=== PATIENT | female | born 1975 | race Caucasian/White ===

== ENCOUNTER → 2016-12-14 | Outpatient (CLI) | payer MEDICARE, MEDICAID ==
[~2016-12-14] MED LIST: ACET-790 PO; CARI350T27 PO; GABA600T2 PO; LOPE2CAP PO; OXYB5TAB PO; POTA20TA15 PO; PRAZ2CAP2 PO; QUET200T2 PO; TOPI100T11 PO; TRAM50TA2 PO; VENL150C PO
--- OUTSIDE RECORDS SUMMARY | 2016-12-14 10:42 | XMS REPORT | Continuity of Care Document ---
Author Author [facility] Organization [facility] Address Unknown Phone Unavailable Care Team Providers Care Police Surgeon Name Role Phone PCP Unavailable Source Comments Some departments are not documenting in the electronic medical record. If you do not see the information that you expected, contact Release of Information in the Health Information Management department at [phone] for further assistance in locating additional records.[facility] Active Allergies and Adverse Reactions Allergen Noted Date Severity Reactions Comments Adhesive 11/06/2016 Medium RASH Paper tape Amoxicillin 11/06/2016 Low STOMACH UPSET Codeine 11/06/2016 Medium HIVES Morphine 11/06/2016 Medium HIVES Penicillins 11/06/2016 Low STOMACH UPSET [place] Dye 11/06/2016 Medium HIVES itching Purple Dye 11/06/2016 Medium HIVES itching Sulfa (Sulfonamide 11/06/2016 High ANAPHYLAXIS Antibiotics) Current Medications Prescription Sig. Disp. Refills Start End Date Status Date topiramate (TOPAMAX) 200 Take 200 mg by mouth Active mg tablet every 12 hours. QUEtiapine (SEROQUEL) 200 Take 200 mg by mouth Active mg tablet twice daily. venlafaxine XR (EFFEXOR Take 150 mg by mouth Active XR) 150 mg capsule daily. Take with food. oxybutynin XL (DITROPAN Take 5 mg by mouth daily. Active XL) 5 mg tablet potassium chloride SR Take 20 mEq by mouth Active (K-DUR) 20 mEq tablet twice daily. Take with a meal and a full glass of water. gabapentin (NEURONTIN) Take 600 mg by mouth Active 600 mg tablet three times daily. ferrous sulfate (FEOSOL, Take 325 mg by mouth Active FEROSUL) 325 mg (65 mg three times daily. Take iron) tablet on an empty stomach at least 1 hour before or 2 hours after food. HYDROcodone-ibuprofen Take 1 Tab by mouth every Active (VICOPROFEN) 7.5-200 mg 6 hours as needed for tablet Pain Active Problems Problem Noted Date Mixed stress and urge urinary incontinence 11/06/2016 Overview: 2008 - Interstim placement for urinary urgency/frequency, and MANPREET. Battery failed. 2011 - Interstim battery replacement. Lead malfunction 2012 - Complete Interstim replacement. Worked well until fell on ice 2014 - Complete Interstim replacement. Battery failed 11/2015 - Complete Interstim replacement (Dr. Rogers) 04/2016 - Revision of L Interstim pocket (2/2 pain) 10/24/16 - Persistent MANPREET, urgency, frequency on Oxybutynin 5mg BID. Refer to [facility] 11/06/16 - Continued MANPREET, urgency, frequency on Oxybutynin 5mg BID. PVR 165cc. Scheduled for UDS w/ Interstim off L ast Assessment & Plan: 41yF with recurrent MANPREET, urgency, frequency on Oxybutynin 5mg BID s/p multiple Interstim placements/replacements with recent sharp back pain, worsening MANPREET, urgency, frequency. PVR 165cc. Symptoms likely related to malfunctioning Interstim device, however will get baseline UDS prior to explantation. 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 CARDROOM WORKER Temperature - - Respiratory Rate - - Height 1.626 m (5' 4") 11/06/2016 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 CARDROOM WORKER Weight 118.389 kg (261 lb) 11/06/2016 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
--- NOTE | 2016-12-14 11:56 | Diagnostic Imaging Report ---
PROCEDURE: US Abdomen, limited. TECHNIQUE: Multiple realtime grayscale images were obtained over the abdomen in various projections. INDICATION: Lump under the left upper quadrant rib cage area. Unremarkable soft tissue appearance is seen with no focal mass or fluid collection identified. IMPRESSION: No definite abnormality. If symptoms persist or there is convincing lesion clinically, then evaluation with MRI or CT scan would be helpful. Dictated by: Dictated on workstation # [id number]
== END ==
LOC: RAD 10:39
PROVIDERS: ATTEND Nurse Practitioner Adult Health
DX: R10.12 Left upper quadrant pain (principal)
CPT/HCPCS: 76705

== ENCOUNTER → 2016-12-21 | Outpatient (CLI) | payer MEDICARE, MEDICAID ==
[~2016-12-21] MED LIST changes: +CATHETER FLUSH 10 ML SYR IV PRN; +IOHEXOL 350 MG/ML 100 ML (OMNIPAQUE 350) VIAL IV ONE; +NS 100 ML (IVPB) BAG IV ONE
--- OUTSIDE RECORDS SUMMARY | 2016-12-21 09:02 | XMS REPORT | Continuity of Care Document ---
Author Author [facility] Organization [facility] Address Unknown Phone Unavailable Care Team Providers Care Account Manager Education Name Role Phone PCP Unavailable Source Comments Some departments are not documenting in the electronic medical record. If you do not see the information that you expected, contact Release of Information in the Health Information Management department at [phone] for further assistance in locating additional records.[facility] Active Allergies and Adverse Reactions Allergen Noted Date Severity Reactions Comments Adhesive 11/06/2016 Medium RASH Paper tape Amoxicillin 11/06/2016 Low STOMACH UPSET Codeine 11/06/2016 Medium HIVES Morphine 11/06/2016 Medium HIVES Penicillins 11/06/2016 Low STOMACH UPSET [place] Dye 11/06/2016 Medium HIVES itching Purple Dye [...] frequency on Oxybutynin 5mg BID. 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
--- NOTE | 2016-12-21 10:05 | Diagnostic Imaging Report ---
PROCEDURE: CT abdomen with contrast only. TECHNIQUE: Multiple contiguous axial images were obtained through the abdomen after the administration of intravenous contrast. INDICATION: Abdominal mass. COMPARISON: There are no previous CT examinations available for comparison. FINDINGS: By history, the patient has a palpable mass in the left upper quadrant. The previous ultrasound exam of 12/14/2016 failed to show any discrete solid or cystic mass in this area. On this study, a marker was placed over the area of concern but the marker is barely visible. There is still no sign of a mass or cyst in the subcutaneous fat of the left upper quadrant. If there is indeed a clinical palpable mass present and further evaluation is desired, then biopsy should be considered. There is a small fat-containing retro umbilical hernia. There is no incarceration or obstruction of the bowel by the hernia. The liver does not appear to be enlarged. The liver is of lower density than usually seen and this appearance does suggest fatty metamorphosis. The gallbladder is surgically absent. The spleen, pancreas, adrenals, kidneys, aorta and inferior vena cava show no sign of an acute abnormality. The stomach is partially filled with particulate matter and consequently difficult to assess. The lung bases are clear. The bone window show no evidence for a fracture or for destructive lesion. IMPRESSION: 1. There is no discrete solid or cystic mass in the area of the patient's palpable abnormality in the upper-outer quadrant of the left abdomen. Recommendations as above. 2. There is no acute abnormality of the abdomen or pelvis identified. 3. The appearance of the liver does suggest fatty metamorphosis. 4. The gallbladder is surgically absent. Dictated by: Dictated on workstation # [id number]
== END ==
LOC: RAD 08:59
PROVIDERS: ATTEND Nurse Practitioner Adult Health
DX: R10.12 Left upper quadrant pain (principal)
CPT/HCPCS: 74160

== ENCOUNTER 2017-02-09 09:33 | Outpatient (CLI) | payer MEDICARE, MEDICAID ==
[~2017-02-09] VITALS: Ht 162.6 cm; Wt 115.2 kg
[~2017-02-09 09:33] MED LIST changes: -CATHETER FLUSH 10 ML SYR IV PRN; -IOHEXOL 350 MG/ML 100 ML (OMNIPAQUE 350) VIAL IV ONE; -NS 100 ML (IVPB) BAG IV ONE
--- OUTSIDE RECORDS SUMMARY | 2017-02-09 09:38 | XMS REPORT | Continuity of Care Document ---
Author Author [facility] Organization [facility] Address Unknown Phone Unavailable Care Team Providers Care Biological Technician Name Role Phone Lindsey Carrington PCP [phone] Source Comments Some departments are not documenting in the electronic medical record. If you do not see the information that you expected, contact Release of Information in the Health Information Management department at [phone] for further assistance in locating additional records.[facility] Active Allergies and Adverse Reactions Allergen Noted Date Severity Reactions Comments Adhesive 11/06/2016 Medium RASH Paper tape Amoxicillin 11/06/2016 Low STOMACH UPSET Codeine 11/06/2016 Medium HIVES Morphine 11/06/2016 Medium HIVES Penicillins 11/06/2016 Low STOMACH UPSET [place] Dye 11/06/2016 Medium HIVES itching Purple Dye [...] XL (DITROPAN Take 5 mg by mouth twice Active XL) 5 mg tablet daily. potassium chloride SR Take 20 mEq by [...] 6 hours as needed for tablet Pain oxyCODONE (ROXICODONE, Take 1 Tab by mouth every 15 Tab 0 02/03/20 Active OXY-IR) 5 mg tablet 4 hours as needed for 17 Pain Earliest Fill Date: 02/02/17 Active Problems Problem Noted Date Mixed stress [...] frequency on Oxybutynin 5mg BID. Refer to [facility] 11/06/16 - Continued MANPREET, urgency, frequency on Oxybutynin 5mg BID. PVR 165cc. Scheduled for UDS w/ Interstim off UDS which revealed a small capacity, emptying, no stress leak, and DO with large leak up to 40cm H20. 02/02/17 - Interstim device removal. 100u botox L ast Assessment & Plan: - OR 02/02/17 for interstim removal and botox 100u. - PT/PTT Most Recent Encounters Date Type Specialty Providers Description 02/02/2017 [facility] Sandra Marlow MD OAB (overactive bladder) Encounter 02/02/2017 Surgery Sandra Marlow MD CYSTOSCOPY, BOTOX INJECTION (100 UNITS) 02/01/2017 Anesthesia Rosie Little MD Event 01/22/2017 Office Visit Urology Sandra Marlow MD Mixed stress and urge urinary incontinence (Primary Dx) 01/22/2017 Clinical Urology Mixed incontinence urge Support and stress (male)(female) (Primary Dx); Urinary frequency; Urge incontinence; Mixed stress and urge urinary incontinence 01/22/2017 Prep for Case Urology Sandra Marlow MD Bleeding tendency (HCC) (Primary Dx) Social History Tobacco Use Types Packs/Day Years Used Date Former Smoker Quit: 04/06/1998 Alcohol Use Drinks/Week oz/Week Comments No Last Filed Vital Signs Vital Sign Reading Time Taken Blood Pressure 139/82 02/02/2017 2:05 PM [employer] Pulse 80 02/02/2017 2:05 PM [employer] Temperature 36.6 C (97.9 F) 02/02/2017 2:05 PM [employer] Respiratory Rate - - Height 1.638 m (5' 4.5") 02/02/2017 10:31 AM [employer] Weight 121.3 kg (267 lb 6.7 oz) 02/02/2017 10:31 AM [employer] Body Mass Index 45.21 02/02/2017 10:31 AM [employer] Oxygen Saturation 99% 02/02/2017 2:05 PM [employer] Plan of Care Date Type Specialty Providers Description 02/19/2017 Appointment Urology Sandra Marlow MD [address] [facility] [address] [place] [address] [phone] (Fax) Health Maintenance Due Date Last Done Comments Physical (Comprehensive) 1981 Exam Pertussis Vaccine 1985 Tetanus Vaccine 1991 Cervical Cancer Screening 1995 Breast Cancer Screening 2014 Influenza Vaccine 07/27/2017 Procedures from Last 3 Months Procedure Name Priority Date/Time Associated Diagnosis Comments TELEMETRY STRIPS-SCAN 02/06/2017 Results for this 1:12 PM CDT procedure are in the results section. REMOVAL NEUROSTIMULATOR 02/02/2017 OAB (overactive bladder) ELECTRODE PERIPHERAL 11:35 AM [employer] CYSTOSCOPY, BOTOX 02/02/2017 OAB (overactive bladder) INJECTION (100 UNITS) 11:35 AM [employer] URODYNAMIC STUDIES Routine 01/22/2017 Mixed incontinence urge Results for this 12:00 AM [employer] and stress (male)(female) procedure are in the Urinary frequency results section. Urge incontinence Results from Last 3 Months TELEMETRY STRIPS-SCAN (02/06/2017 1:12 PM) Narrative Ordered by an unspecified provider. SURGICAL PATHOLOGY (02/02/2017 12:11 PM) Component Value Range PATHOLOGY REPORT [facility] [email or web address] Iza Gibson MD, PhD, Director of Anatomic Pathology Department of Pathology and Laboratory Medicine [address] [facility] [place] [address] Surgical Pathology Office: [phone] SURGICAL PATHOLOGY REPORT NAME: TISH BARBOZA SURG PATH #: [id number] MR #: [id number] SPECIMEN CLASS: SR BILLING #: [id number] ALT ID #: LOCATION: [facility] DATE OF PROCEDURE: 02/02/2017 AGE: 41 SEX: F DATE RECEIVED: 02/02/2017 : 1975 TIME RECEIVED: 12:11 PHYSICIAN: Sandra Marlow DATE OF REPORT: 02/05/2017 COPY TO: DATE OF PRINTIN02/05/2017 ################################################## ###################### Final Diagnosis: A. InterStim components gross only, removal: Gross diagnosis only; see gross description. Attestation: By this signature, I attest that I have personally formulated the final interpretation expressed in this report and that the above diagnosis is based upon my examination of the slides and/or other material indicated in this report. +++Electronically Signed Out By+++ bret/02/02/2017 Interpreted by: Kaylynn Naik M.D. 02/05/2017 ################################################## ###################### Material Received: A: interstem components gross only History: 41-year-old female with a clinical history of overactive bladder. Gross Description: A. Received fresh labeled with the patient's name "InterStim components gross only" is a 5.0 x 4.5 x 0.7 cm silver, metallic surgical device with attached clear, plastic tubing measuring 21.0 cm in length by 0.1 cm in diameter. No distinct abnormalities are observed. The specimen is submitted for gross diagnosis only. (jkh) jteresa/02/02/2017 POC URINE DIPSTICK MANUAL READ (01/22/2017) Component Value Range Urine Glucose POC neg Urine Bilirubin POC neg Urine Ketone POC neg Urine Specific [place] 1.030 POC Urine Blood POC neg Urine PH POC 6.0 Urine Protein POC neg Urine Urobilinogen POC 0.2 Urine Nitrite POC nge Urine Leukocytes POC neg Color,UA yellow Turbidity,UA clear Specimen Urine URODYNAMIC STUDIES (01/22/2017)
[2017-02-09] MEDS ORDERED: TRIAMCINOLONE ACET (KENALOG-40) 40 MG/ML 1 ML VIAL ONE (09:51)
[2017-02-09] MEDS ORDERED: BUPIVACAINE 0.5% 30 ML (SENSORCAINE) VIAL ONE (09:51)
[2017-02-09] MEDS ORDERED: LIDOCAINE 1% INJ 20 ML (XYLOCAINE) VIAL ONE (09:51)
[2017-02-09 09:56] VITALS: BP 141/76
[2017-02-09 10:50] VITALS: BP 127/78
--- NOTE | 2017-02-09 11:52 | Pain Medicine-Procedure ---
Procedure Pre-Op/Post-Op Diagnosis Diagnosis: spondylosis without myelopathy, lumbar Indications for Operation Low back pain Attending Surgeon Viet Procedure Date of Service: Feb 09, 2017 PROCEDURE: Bilateral lumbar medial branch block at L3,L4, L5 and sacral ala under fluoroscopic guidance. PROCEDURE DETAILS: After obtaining an informed consent from the patient, the patient's chart was reviewed. The patient was brought to the procedure room and placed in a prone position. The back was prepped with antiseptic solution, and under fluoroscopic guidance the sacral ala was identified bilaterally. 0.5 cc of 1% Lidocaine to anesthetize the skin. Two 22 gauge 3.5 inch spinal needles were inserted under fluoroscopic guidance until it got in touch with the bone at the sacral ala bilaterally. Then under right oblique fluoroscopy, the junction of the superior articular process and transverse process on the right at L3, L4, and L5 was identified. 0.5 cc of 1% Lidocaine was used to anesthetize the skin. A 22 gauge 3.5 inch spinal needle was inserted through the skin under fluoroscopic guidance until it came in touch with the bone at the junction between the superior articular process and transverse process at each level. The exact steps were repeated for the left side. After needle aspiration,80 mg of kenalog total was injected in equal alliquots followed by 0.5 cc of 0.5% bupivacaine at each. The patient tolerated the procedure well. The needles were flushed and removed, and a Band-Aide was applied. Complications None ZEKE KEVIN MD Feb 09, 2017 11:52 am
== END 2017-02-09 10:52 | disposition home or self-care (01) ==
LOC: CARD 09:33
PROVIDERS: ATTEND Pain Medicine Pain Medicine
DX: M47.816 Spondylosis without myelopathy or radiculopathy, lumbar region (principal); Z79.899 Other long term (current) drug therapy
CPT/HCPCS: 64493; 64494; 64495

== ENCOUNTER 2017-03-02 08:16 | Outpatient (CLI) | payer MEDICARE, MEDICAID ==
[~2017-03-02] VITALS: Ht 162.6 cm; Wt 115.2 kg
[2017-03-02] MEDS ORDERED: LIDOCAINE 1% INJ 20 ML (XYLOCAINE) VIAL ONE (08:44)
[2017-03-02] MEDS ORDERED: TRIAMCINOLONE ACET (KENALOG-40) 40 MG/ML 1 ML VIAL ONE (08:44)
[2017-03-02] MEDS ORDERED: BUPIVACAINE 0.25% 30 ML (SENSORCAINE) VIAL ONE (08:44)
[2017-03-02 08:49] VITALS: BP 132/95
[2017-03-02 09:24] VITALS: BP 138/98
--- NOTE | 2017-03-02 12:29 | Pain Medicine-Procedure ---
Procedure Pre-Op/Post-Op Diagnosis Diagnosis: sacrococcygeal disorder Indications for Operation Hip pain Attending Surgeon Viet Procedure Date of Service: Mar 02, 2017 Procedure: Flouroscopic guided bilateral sacroiliac joint injection PROCEDURE IN DETAIL: After obtaining informed consent from the patient, the patient's chart was reviewed. The patient was then brought to the procedure room and placed in the prone position. A time out was performed. The back was prepped with antiseptic solution and under fluoroscopic guidance the patient's sacroiliac joint on both sides was identified. Attention was first turned to the right sacroiliac joint injection where 2 mL's of 1% lidocaine was used to anesthetize the skin and then two 22-gauge 3.5 inch spinal needles were inserted and advanced under flouroscopic guidance until they were in the lower 1 /3 of the right sacroiliac joint. Next, attention was then turned to the left sacroiliac joint injection where 2 mL's of 1% lidocaine was used to anesthetize the skin and then two 22-gauge 3.5 inch spinal needles were inserted and advance under flouroscopic guidance until they were in the lower 1/3 of the sacroiliac joint on the left side. After negative aspiration, each needle was injected with 40 mg of Kenalog along with 2 mL's of 0.25% marcaine. All needles were then flushed with 1% lidocaine and then removed. Band-Aids were applied to all the sites and the patient tolerated the procedure well and was taken to the recovery area in stable condition. Complications None ZEKE KEVIN MD Mar 02, 2017 12:29 pm
== END 2017-03-02 09:26 | disposition home or self-care (01) ==
LOC: CARD 08:16
PROVIDERS: ATTEND Pain Medicine Pain Medicine
DX: M53.3 Sacrococcygeal disorders, not elsewhere classified (principal); M47.816 Spondylosis without myelopathy or radiculopathy, lumbar region; Z79.899 Other long term (current) drug therapy
CPT/HCPCS: 27096

== ENCOUNTER 2017-06-30 23:39 | Emergency (ER) | payer MEDICARE, MEDICAID ==
[~2017-06-30] VITALS: Ht 162.6 cm; Wt 129.7 kg
[2017-06-30] MEDS ORDERED: HYDR-87 (23:52)
[2017-06-30] MEDS ORDERED: ALBU18HF2 (23:52)
[2017-06-30] MEDS ORDERED: FERR-74 (23:52)
--- NOTE | 2017-07-01 01:18 | ED Lower Extremity ---
General Chief Complaint: Lower Extremity Stated Complaint: L FOOT SWOLLEN Nursing Triage Note: left foot/ankle pain/swelling x2 weeks after fall. denies loc/other injuries Nursing Sepsis Screen: No Definite Risk Source: patient Exam Limitations: no limitations History of Present Illness Time seen by provider: 23:50 Initial Comments This 42-year-old woman presents to the emergency room with complaints of left foot pain and swelling. She fell about 2 weeks ago injuring this foot. She has been ambulating on it until tonight. She reinjured it night aggravating the old injury. She felt a popping and grinding sound tonight when she injured it. Pain is isolated to the foot and does not involve the ankle. She denies any other injury. Allergies and Home Medications Allergies Coded Allergies: Penicillins (Unverified Allergy, Unknown, 02/04/16) Sulfa (Sulfonamide Antibiotics) (Unverified Allergy, Unknown, 02/04/16) codeine (Unverified Allergy, Unknown, 02/04/16) meloxicam (Unverified Allergy, Unknown, 02/04/16) morphine (Unverified Allergy, Unknown, 02/04/16) Uncoded Allergies: PAPER TAPE (Allergy, Unknown, 02/04/16) PINK DYE (Allergy, Unknown, 02/04/16) PURPLE DYE (Allergy, Unknown, 02/04/16) Home Medications Albuterol Sulfate 18 Gm Hfa.aer.ad, #18 (Reported) Ferrous Sulfate 325 Mg Tablet, #90 (Reported) Gabapentin 600 Mg Tablet, 600 MG PO TID, (Reported) Hydrocodone/Ibuprofen 1 Each Tablet, #112 (Reported) Oxybutynin Chloride 5 Mg Tab.er.24, 5 MG PO BID, #60 (Reported) Potassium Chloride 20 Meq Tab.er.prt, 40 MEQ PO DAILY, #60 (Reported) Quetiapine Fumarate 200 Mg Tab.er.24h, 200 MG PO HS, #30 (Reported) Topiramate 100 Mg Tablet, 100 MG PO BID, #60 (Reported) Venlafaxine HCl 150 Mg Cap.er.24h, 150 MG PO DAILY, (Reported) Constitutional: no symptoms reported EENTM: no symptoms reported Respiratory: no symptoms reported Cardiovascular: no symptoms reported Gastrointestinal: no symptoms reported Musculoskeletal: see HPI Skin: no symptoms reported Psychiatric/Neurological: No Symptoms Reported Past Tqiysie-Sqzyry-Quvibe Hx Patient Social History Alcohol Use: Denies Use Recreational Drug Use: No Smoking Status: Never a Smoker 2nd Hand Smoke Exposure: No Recent Foreign Travel: No Contact w/Someone Who Travel: No Recent Infectious Disease Expo: No Recent Hopitalizations: No Immunizations Up To Date Tetanus Booster (TDap): Unknown Seasonal Allergies Seasonal Allergies: No Surgeries HX Surgeries: Yes Surgeries: Abdominal, Ear Surgery, Gallbladder, Hysterectomy Respiratory Hx Respiratory Disorders: Yes Respiratory Disorders: Asthma Cardiovascular Hx Cardiac Disorders: No Neurological Hx Neurological Disorders: Yes Neurological Disorders: Headaches /Migraines Reproductive System : No Hx Reproductive Disorders: No 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 Genitourinary Hx Genitourinary Disorders: Yes Genitourinary Disorders: UTI-Chronic Gastrointestinal Hx Gastrointestinal Disorders: No Musculoskeletal Hx Musculoskeletal Disorders: Yes Musculoskeletal Disorders: Degenerate Disk Disease, Chronic Back Pain Endocrine Hx Endocrine Disorders: No HEENT HX ENT Disorders: No Cancer Hx Cancer: No Psychosocial Hx Psychiatric Problems: Yes Behavioral Health Disorders: Bipolar Integumentary HX Skin/Integumentary Disorder: No Blood Transfusions Hx Blood Disorders: No Physical Exam Vital Signs Vital Sign - Last 12Hours 06/30/17 23:52 Temp 97.6 Pulse 102 Resp 16 B/P (MAP) 125/75 Pulse Ox 94 O2 Delivery Room Air Capillary Refill : Less Than 3 Seconds General Appearance: WD/WN, no apparent distress HEENT: PERRL/EOMI, normal ENT inspection Cardiovascular: regular rate, rhythm, no edema, no murmur Respiratory: lungs clear, normal breath sounds, no respiratory distress Legs: bilateral leg non-tender, bilateral leg normal inspection, bilateral leg normal range of motion, bilateral leg no evidence of injury, bilateral leg other (no calf TTP, negative Evangelista) Knees: bilateral knee non-tender, bilateral knee normal inspection, bilateral knee normal range of motion, bilateral knee no evidence of injury Ankles: right ankle non-tender, right ankle normal inspection, right ankle normal range of motion, right ankle no evidence of injury, left ankle bone tenderness, left ankle limited range of motion, left ankle pain, bilateral ankle swelling Feet: right foot non-tender, right foot normal inspection, right foot normal range of motion, right foot no evidence of injury, left foot bone tenderness, left foot limited range of motion, left foot pain, left foot soft tissue tenderness, bilateral foot swelling 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, no motor/sensory deficits, alert, normal mood/affect, oriented x 3 Skin: normal color, warm/dry Progress/Results/Core Measures Results/Orders My Orders Orders - CHRISTOFER STROUD MD Foot, Left, 3 Views (07/01/17 00:04) Ankle, Left, 3 Views (07/01/17 00:04) Crutches (07/01/17 01:28) Vital Signs/I&O Vital Sign - Last 12Hours 06/30/17 07/01/17 23:52 01:33 Temp 97.6 97.6 Pulse 102 102 Resp 16 16 B/P (MAP) 125/75 Pulse Ox 94 94 O2 Delivery Room Air Blood Pressure Mean: 92 Progress Note : Progress Note Patient did not complain of any pain in the ankles but on exam she was found to be tender over the left ankle. Both feet are edematous. The left foot may be slightly more edematous than the right. Both feet are mildly erythematous. X- rays demonstrated no acute fracture. Crutches were dispensed as patient is having difficulty with weightbearing. Adiel wrap was applied. Departure Impression Impression: Primary Impression: Sprain and strain of foot Additional Impression: Left ankle sprain Qualified Codes: S93.402A - Sprain of unspecified ligament of left ankle, initial encounter Disposition: HOME, SELF-CARE Condition: Improved Departure-Patient Inst. Decision time for Depature: 01:00 Referrals: RAYNA FLORENTINO DO (PCP) Primary Care Physician JIM BOWMAN (Family) Primary Care Physician Patient Instructions: Ankle Sprain (DC) Add. Discharge Instructions: Contact the ER after 10 o'clock tomorrow morning to review results of your x- ray. You may use Adiel bandages for support and to reduce swelling. Use crutches as necessary and gradually advance your walking as tolerated. Elevation and icing in 20 minute intervals should help with pain and swelling. You may use your Vicoprofen as previously prescribed. All discharge instructions reviewed with patient and/or family. Voiced understanding. CHRISTOFER STROUD MD Jul 01, 2017 01:18
[2017-07-01 01:33] VITALS: BP 125/75
--- NOTE | 2017-07-01 06:47 | Diagnostic Imaging Report ---
INDICATION: Foot pain after fall. COMPARISON: Left ankle radiographs performed concurrently. FINDINGS: There is no acute or healing fracture. Normal variant os navicularis (os tibialis externum) at the base of the navicular bone. There is also an os peroneum adjacent to the cuboid. These are normal accessory ossicles, not avulsion fractures. Midfoot and forefoot are normal in alignment on nonweightbearing imaging. If there is concern for Lisfranc injury, weightbearing imaging is advised. Minimal degenerative joint space narrowing of the great toe MTP joint. Soft tissue swelling of the forefoot is present. IMPRESSION: 1. No acute or healing fracture. 2. Multiple normal variant ossicles around the midfoot. No avulsion fractures. Dictated by: Dictated on workstation # [id number]
--- NOTE | 2017-07-01 07:38 | Diagnostic Imaging Report ---
INDICATION: Left ankle pain after injury. COMPARISON: Left foot radiographs performed concurrently. TECHNIQUE: 3 views of the left ankle. FINDINGS: No acute or healing fracture. No osteochondral lesion of the talar dome. Mild degenerative changes of the tibiotalar joint anteriorly. There are also mild degenerative changes at the talonavicular joint. Small dorsal and plantar calcaneal spurs. No radiopaque foreign body. IMPRESSION: No acute or healing fracture about the ankle. Dictated by: Dictated on workstation # [id number]
== END 2017-07-01 01:33 | disposition home or self-care (01) ==
LOC: EDUNIT# 23:39 → ER 23:43
DX: S93.602A Unspecified sprain of left foot, initial encounter (principal); S93.402A Sprain of unspecified ligament of left ankle, initial encounter; G43.909 Migraine, unspecified, not intractable, without status migrainosus; M47.9 Spondylosis, unspecified; F31.9 Bipolar disorder, unspecified; J45.909 Unspecified asthma, uncomplicated; Z98.890 Other specified postprocedural states; Z90.710 Acquired absence of both cervix and uterus; X58.XXXA Exposure to other specified factors, initial encounter
CPT/HCPCS: 73610; 73630; 99282

== ENCOUNTER 2017-12-18 19:29 | Emergency (ER) | payer MEDICARE, MEDICAID ==
[~2017-12-18] VITALS: Ht 162.6 cm; Wt 127.5 kg
[~2017-12-18 19:29] MED LIST changes: +ALBU18HF2; +FERR325T18; +HYDR-87
--- NOTE | 2017-12-18 19:42 | ED Headache ---
General Chief Complaint: Head/Cervical Problems Stated Complaint: HEADACHE Source: patient Exam Limitations: no limitations History of Present Illness Date Seen by Provider: Dec 18, 2017 Time Seen by Provider: 19:39 Initial Comments To ER with severe headache global in nature present for one week. She was seen by [facility] yesterday and given a shot of Toradol without improvement symptoms. No nausea. No vomiting. This is similar to all of her previous headaches, she simply cannot get it to go away. She takes Topamax for her frequent headaches. Timing/Duration: 1 week Severity/Quality: moderate Location: global Prior Headaches/Recent Trauma: frequent headaches Associated Symptoms: No confusion, No fatigue, No facial pain, No fever/chills , No flushing, No nausea/vomiting, No nasal congestion Allergies and Home Medications Allergies Coded Allergies: Penicillins (Unverified Allergy, Unknown, 02/04/16) Sulfa (Sulfonamide Antibiotics) (Unverified Allergy, Unknown, 02/04/16) codeine (Unverified Allergy, Unknown, 02/04/16) meloxicam (Unverified Allergy, Unknown, 02/04/16) morphine (Unverified Allergy, Unknown, 02/04/16) Uncoded Allergies: PAPER TAPE (Allergy, Unknown, 02/04/16) PINK DYE (Allergy, Unknown, 02/04/16) PURPLE DYE (Allergy, Unknown, 02/04/16) Home Medications Albuterol Sulfate 18 Gm Hfa.aer.ad, #18 (Reported) Ferrous Sulfate 325 Mg Tablet, #90 (Reported) Gabapentin 600 Mg Tablet, 600 MG PO TID, (Reported) Hydrocodone/Ibuprofen 1 Each Tablet, #112 (Reported) Oxybutynin Chloride 5 Mg Tab.er.24, 5 MG PO BID, #60 (Reported) Potassium Chloride 20 Meq Tab.er.prt, 40 MEQ PO DAILY, #60 (Reported) Quetiapine Fumarate 200 Mg Tab.er.24h, 200 MG PO HS, #30 (Reported) Topiramate 100 Mg Tablet, 100 MG PO BID, #60 (Reported) Venlafaxine HCl 150 Mg Cap.er.24h, 150 MG PO DAILY, (Reported) Constitutional: see HPI Eyes: No Symptoms Reported Ears, Nose, Mouth, Throat: no symptoms reported Respiratory: no symptoms reported Cardiovascular: no symptoms reported Genitourinary: no symptoms reported Musculoskeletal: no symptoms reported Skin: no symptoms reported Psychiatric/Neurological: No Symptoms Reported Past Pbwusyp-Ccxakv-Gfjprs Hx Patient Social History 2nd Hand Smoke Exposure: No Recent Foreign Travel: No Contact w/Someone Who Travel: No Recent Hopitalizations: No Immunizations Up To Date Tetanus Booster (TDap): Unknown Seasonal Allergies Seasonal Allergies: No Surgeries History of Surgeries: Yes (hernia) Surgeries: Abdominal, Ear Surgery, Gallbladder, Hysterectomy Respiratory History of Respiratory Disorde: Yes Respiratory Disorders: Asthma Cardiovascular History of Cardiac Disorders: No Neurological History of Neurological Disord: Yes Neurological Disorders: Headaches /Migraines Reproductive System Hx Reproductive Disorders: No 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 Genitourinary History of Genitourinary Disor: Yes (incontinence) Genitourinary Disorders: UTI-Chronic Gastrointestinal History of Gastrointestinal Di: No Musculoskeletal History of Musculoskeletal Dis: Yes Musculoskeletal Disorders: Degenerate Disk Disease, Chronic Back Pain Endocrine History of Endocrine Disorders: No HEENT History of HEENT Disorders: No Cancer History of Cancer: No Psychosocial History of Psychiatric Problem: Yes Behavioral Health Disorders: Bipolar Integumentary History of Skin or Integumenta: No Blood Transfusions History of Blood Disorders: No Physical Exam Vital Signs Capillary Refill : General Appearance: WD/WN, no apparent distress, other (despite a reported allergy to pink d no ye and purple dye her hair is both pink and purple) HEENT: PERRL/EOMI, normal ENT inspection Neck: non-tender, full range of motion, normal inspection Cardiovascular: regular rate, rhythm, no murmur ( for Galo overnight) Respiratory: no respiratory distress, no accessory muscle use Gastrointestinal: non tender, soft Extremities: normal range of motion, non-tender Psychiatric: alert, oriented x 3 Skin: normal color, warm/dry (100) Progress/Results/Core Measures Results/Orders My Orders Orders - CHEYENNE PATTERSON APRN Saline Lock/Iv-Start (12/18/17 19:38) Normal Saline Bolus 1,000ml (12/18/17 19:45) Prochlorperazine Injection (Compazine In (12/18/17 19:45) Diphenhydramine Injection (Benadryl Inje (12/18/17 19:45) Ketorolac Injection (Toradol Injection) (12/18/17 19:45) Departure Impression Impression: Primary Impression: Headache Disposition: 01 HOME, SELF-CARE Condition: Stable Departure-Patient Inst. Decision time for Depature: 19:41 Referrals: RAYNA FLORENTINO DO (PCP) Primary Care Physician CHARIS MALCOLM (Family) Primary Care Physician Patient Instructions: Headache, Adult (DC) Add. Discharge Instructions: 1. Return to ER for any vomiting worsening headache or other concerns. Follow- up with your doctor as scheduled. All discharge instructions reviewed with patient and/or family. Voiced understanding. CHEYENNE PATTERSON SUPERVISOR PARTICLEBOARD Dec 18, 2017 19:42
[2017-12-18] MEDS ORDERED: NS IV 1000 ML 1,000 ML IV SCH (19:45)
[2017-12-18] MEDS ORDERED: KETOROLAC 30 MG/ML VIAL IVP ONE (19:45)
[2017-12-18] MEDS ORDERED: PROCHLORPERAZINE 10 MG/2ML INJ (COMPAZINE) IV ONE (19:45)
[2017-12-18] MEDS ORDERED: diphenhydrAMINE 50 MG/ML INJ (BENADRYL) IVP ONE (19:45)
[2017-12-18] MEDS ORDERED: fentaNYL INJECTION 100 MCG/2 ML AMP IVP ONE (21:00)
[2017-12-18 21:26] VITALS: BP 103/47
== END 2017-12-18 21:23 | disposition home or self-care (01) ==
LOC: EDUNIT# 19:29 → ER 19:31
DX: R51 Headache (principal); J45.909 Unspecified asthma, uncomplicated; F31.9 Bipolar disorder, unspecified; M47.9 Spondylosis, unspecified; Z90.710 Acquired absence of both cervix and uterus
CPT/HCPCS: 96361; 96374; 96375

== ENCOUNTER → 2019-10-01 | Outpatient (CLI) | payer MEDICARE, MEDICAID ==
[~2019-10-01] MED LIST changes: -GABA600T2 PO; +GBPN600T PO; -QUET200T2 PO; +QUET200T4 PO
--- NOTE | 2019-10-02 17:47 | Diagnostic Imaging Report ---
EXAMINATION: Digital mammogram bilateral screening. The current study was also evaluated with a Computer Aided Detection (CAD) system. 3-D tomosynthesis was also performed and reviewed. INDICATION: Screening. There are no prior studies available for comparison. At this time, the patient has no current complaints aside from pain in each breast. FINDINGS: The breasts are predominantly fatty. There is no primary or secondary sign of malignancy noted. There is no abnormality to account for the patient's breast pain either. IMPRESSION: 1. There is no evidence for malignancy. There is no abnormality to account for the patient's breast pain either. 2. If clinical concern regarding an underlying abnormality as a cause of the patient's breast pain persists, then ultrasound will be recommended. 3. The patient should have her annual screening mammogram on schedule in September of 2020. ACR BI-RADS Category 1: Negative. Result letter will be mailed to the patient. Note: At least 10% of breast cancer is not imaged by mammography. Dictated by: Dictated on workstation # [id number]
== END ==
LOC: RAD 12:59
PROVIDERS: ATTEND Nurse Practitioner Family
DX: Z12.31 Encounter for screening mammogram for malignant neoplasm of breast (principal)
CPT/HCPCS: 77067

== ENCOUNTER 2019-10-31 21:12 | Emergency (ER) | payer MEDICARE, MEDICAID ==
[~2019-10-31] VITALS: Ht 162.5 cm; Wt 131.8 kg
[~2019-10-31 21:12] MED LIST changes: -OXYB5TAB PO; +OXYB5TAB3 PO; -TRAM50TA2 PO; +TRM50T PO
--- NOTE | 2019-10-31 22:13 | ED Fall/Injury ---
General Chief Complaint: General Problems/Pain Stated Complaint: FALL-PAIN IN LEFT HIP,SHOULDER AND LEG Source: patient Exam Limitations: no limitations History of Present Illness Date Seen by Provider: Oct 31, 2019 Time Seen by Provider: 21:54 Initial Comments Patient presents to ER by private conveyance with a complaint of fall just prior to arrival walking to the backyard and a hole was approximately 8 inches deep by foot half wide in her [facility] backyard. She rolled into it onto her left side and is having some pain in her left hip and left lower back which is an aggravation of her chronic back pain with history of slipped discs. She has some pain in her left knee and pain in her left shoulder that she landed upon. No history of injury to the knee or shoulder before. She did have a fall about a month ago with similar episode but did not have it checked out at that time on September 25, 2019. She does not have any blood thinners did strike her head nor lose consciousness. She does take hydrocodone for her back but has not taken any since her fall. Allergies and Home Medications Allergies Coded Allergies: Penicillins (Unverified Allergy, Unknown, 02/04/16) Sulfa (Sulfonamide Antibiotics) (Unverified Allergy, Unknown, 02/04/16) codeine (Unverified Allergy, Unknown, 02/04/16) meloxicam (Unverified Allergy, Unknown, 02/04/16) morphine (Unverified Allergy, Unknown, 02/04/16) Uncoded Allergies: PAPER TAPE (Allergy, Unknown, 02/04/16) PINK DYE (Allergy, Unknown, 02/04/16) PURPLE DYE (Allergy, Unknown, 02/04/16) Home Medications Gabapentin 600 Mg Tablet, 600 MG PO TID, (Reported) Oxybutynin Chloride 5 Mg Tab.er.24, 5 MG PO BID, (Reported) Potassium Chloride 20 Meq Tab.er.prt, 40 MEQ PO DAILY, (Reported) Quetiapine Fumarate 200 Mg Tab.er.24h, 200 MG PO HS, (Reported) Topiramate 100 Mg Tablet, 100 MG PO BID, (Reported) Venlafaxine HCl 150 Mg Cap.er.24h, 150 MG PO DAILY, (Reported) Patient Home Medication List Home Medication List Reviewed: Yes Review of Systems Review of Systems Constitutional: No chills, No diaphoresis Eyes: Denies Blindness, Denies Blurred Vision Ears, Nose, Mouth, Throat: denies ear pain, denies ear discharge Respiratory: No cough, No short of breath Cardiovascular: No edema, No Hx of Intervention Gastrointestinal: No abdominal pain, No constipation, No diarrhea, No nausea Genitourinary: No discharge, No dysuria Musculoskeletal: see HPI, back pain, joint pain Past Twbzuxh-Nafvvz-Apecpu Hx Patient Social History Alcohol Use: Denies Use Recreational Drug Use: No Smoking Status: Former Smoker Type Used: Cigarettes Former Smoker, Quit: March 26, 2005 2nd Hand Smoke Exposure: No Recent Foreign Travel: No Contact w/Someone Who Travel: No Recent Hopitalizations: No Immunizations Up To Date Tetanus Booster (TDap): Unknown Date of Pneumonia Vaccine: Aug 26, 2017 Date of Influenza Vaccine: Aug 26, 2017 Seasonal Allergies Seasonal Allergies: No Past Medical History Surgeries: Yes (hernia) Abdominal, Ear Surgery, Gallbladder, Hysterectomy Respiratory: Yes Asthma Cardiac: No Neurological: Yes Headaches /Migraines 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 0.0oz. [id number]; 43.6 BMI Method:Stated General Appearance: mild distress, obese HEENT: PERRL/EOMI, pharynx normal Neck: full range of motion, normal inspection Cardiovascular: normal peripheral pulses, regular rate, rhythm Respiratory: lungs clear, normal breath sounds, no respiratory distress, no accessory muscle use Peripheral Pulses: 2+ Radial Pulses (R), 2+ Radial Pulses (L) Gastrointestinal: non tender, soft Back: normal inspection, vertebral tenderness (midline lumbar spine) Extremities: normal range of motion, normal inspection, no pedal edema, normal capillary refill, other (tenderness to palpation over anterior tibial plateau left knee, left hip and lumbar spine and anterior left glenohumeral joint. No dislocation or limit to range of motion.) Neurologic/Psychiatric: no motor/sensory deficits, alert, normal mood/affect, oriented x 3, other (antalgic gait) Skin: normal color, warm/dry [place] Coma Score Best Eye Response: (4) Open Spontaneously Best Verbal Response: (5) Oriented Best Motor Response: (6) Obeys Commands Elizabeth Total: 15 Progress/Results/Core Measures Results/Orders My Orders Orders - RILEY RAMIREZ Orphenadrine Injection (Norflex Injectio (10/31/19 22:15) Ketorolac Injection (Toradol Injection) (10/31/19 22:15) Shoulder, Left, 3 Views (10/31/19 22:06) Knee, Left, 3 Views (10/31/19 22:06) Hip, Left, 2 Views (10/31/19 22:06) Lumbar Spine - 2-3 Views (10/31/19 22:06) Medications Given in ED Current Medications Medications Dose Ordered Sig/Laura Route Start Time Stop Time Status Last Admin Dose Admin Ketorolac Tromethamine 60 mg ONCE ONCE IM 10/31/19 22:15 10/31/19 22:16 DC 10/31/19 22:16 60 MG Orphenadrine Citrate 60 mg ONCE ONCE IM 10/31/19 22:15 10/31/19 22:16 DC 10/31/19 22:16 60 MG Vital Signs/I&O 10/31/19 21:35 Temp 36.1 Pulse 96 Resp 18 B/P (MAP) 136/81 (99) O2 Delivery Room Air Progress Progress Note : Time: 22:12 Progress Note Patient says her back is in spasm and she will not bill perform x-ray. We'll give her a shot of Toradol and Norflex. If necessary we could also give hydrocodone Diagnostic Imaging Diagonstic Imaging: Xray Plain Films/CT/US/NM/MRI: other (left shoulder) Comments No acute osseous fracture or dislocation. Reviewed: Reviewed by Me Diagonstic Imaging: Xray Plain Films/CT/US/NM/MRI: other (lumbar spine) Comments No acute osseous dislocation, malalignment or fracture Reviewed: Reviewed by Me Diagonstic Imaging: Xray Plain Films/CT/US/NM/MRI: hip (left) Comments No acute osseous fracture or dislocation. Reviewed: Reviewed by Me Diagonstic Imaging: Xray Plain Films/CT/US/NM/MRI: knee (left) Comments No acute osseous fracture or dislocation. Reviewed: Reviewed by Me Departure Impression Primary Impression: Fall Qualified Codes: W19.XXXA - Unspecified fall, initial encounter Additional Impressions: Lumbago Qualified Codes: M54.42 - Lumbago with sciatica, left side Left anterior knee pain Left hip pain Left anterior shoulder pain Disposition: HOME, SELF-CARE Condition: Stable Departure-Patient Inst. Decision time for Depature: 00:37 Referrals: NO,LOCAL PHYSICIAN (PCP) Primary Care Physician CHARIS MALCOLM (Family) Primary Care Physician Patient Instructions: Preventing Falls, Knee Pain, Shoulder Pain (DC), Low Back Pain (DC) Add. Discharge Instructions: Ice applied your back, shoulder, hip and knee for 20 minutes every 4 hours for the next 2-3 days. Heating pads, topical creams such as Biofreeze, icy hot, Aspercreme helpful. Tylenol 1000 mg every 8 hours as needed for pain. Ibuprofen 800 mg every 8 hours as needed for pain. Cyclobenzaprine 1 tablet every 8 hours as needed for muscle spasms of your back. Will cause drowsiness. If not seeing improvement in the next 2 weeks then you need to follow-up with your primary care doctor for reevaluation and consider things like chiropractor, physical therapy, etc. All discharge instructions reviewed with patient and/or family. Voiced understanding. Scripts Cyclobenzaprine HCl (Cyclobenzaprine HCl) 10 Mg Tablet 10 MG PO Q8H PRN for SPASMS, #15 TAB 0 Refills Prov: RILEY RAMIREZ 11/01/19 RILEY RAMIREZ Oct 31, 2019 22:13 POS
[2019-10-31] MEDS ORDERED: KETOROLAC 60 MG/2 ML VIAL IM ONE (22:15)
[2019-10-31] MEDS ORDERED: ORPHENADRINE 60 MG/2 ML (NORFLEX) AMP IM ONE (22:15)
[2019-11-01] MEDS ORDERED: CYCL10TA9 PO (00:43)
[2019-11-01 00:50] VITALS: BP 130/80
--- NOTE | 2019-11-01 06:43 | Diagnostic Imaging Report ---
INDICATION: Fall, pain. COMPARISON: None available. TECHNIQUE: 3 radiographs of left knee dated 10/31/2019. FINDINGS: No acute fracture or dislocation. No destructive osseous process. Mild medial joint space narrowing. No significant osteophytosis. No joint effusion. No suspicious radiopaque foreign body. IMPRESSION: No acute osseous abnormality with minimal degenerative changes. Dictated by: Dictated on workstation # [id number]
--- NOTE | 2019-11-01 06:44 | Diagnostic Imaging Report ---
INDICATION: Fall, pain COMPARISON: None available TECHNIQUE: Two radiographs of the left hip dated 10/31/2019 FINDINGS: No acute fracture or dislocation. No destructive osseous process. Left hip joint is well maintained. No suspicious radiopaque foreign body. IMPRESSION: No acute osseous abnormality. Dictated by: Dictated on workstation # [id number]
--- NOTE | 2019-11-01 06:45 | Diagnostic Imaging Report ---
INDICATION: Fall, pain. COMPARISON: CT dated 08/31/2016. TECHNIQUE: 3 radiographs of lumbar spine dated 10/31/2019. FINDINGS: Partial lumbarization of the S1 vertebral body. Alignment of the lumbar spine is well maintained. Vertebral body heights are well-maintained. Mild disc space height loss at L5/S1. No severe disc space height loss. Multilevel small anterior osteophytes. No acute fracture or dislocation. No destructive osseous process. No suspicious radiopaque foreign body. The sacroiliac joints are intact. IMPRESSION: No acute osseous abnormality. Dictated by: Dictated on workstation # [id number]
--- NOTE | 2019-11-01 06:47 | Diagnostic Imaging Report ---
INDICATION: Fall, pain COMPARISON: None available TECHNIQUE: 3 radiographs of the left shoulder dated 11/01/2019. FINDINGS: The acromioclavicular joint is unremarkable. No acute fractures or dislocation. No destructive osseous process. Subacromial space is well-maintained. The visualized left lung is clear. IMPRESSION: No acute osseous abnormality. Dictated by: Dictated on workstation # [id number]
--- OUTSIDE RECORDS SUMMARY | 2019-11-27 06:40 | XMS REPORT ---
Author Author Tish MALCOLM Organization [facility] Address [address] [place] [address] Care Team Providers Care Drafting Technician Name Role Phone CHARIS MALCOLM Unavailable PROBLEMS Type Condition ICD9-CM Code CKG45-NA Code Onset Dates Condition S tatus SNOMED Code Problem Degenerative disc disease at L5-S1 level M51.36 Active 83033677 Problem Hypopotassemia E87.6 Active 07649 004 Problem Anxiety F41.9 Active 13463415 Problem Uncomplicated asthma, unspecified asthma severity J45.909 Active 943534904 Problem Hypoxemia R09.02 Active 456348499 Problem Acquired equinus deformity of left foot M21.6X2 Active 18707549 Problem Other chronic pain G89.29 Active 8 3046989 Problem Pure hyperglyceridemia E78.1 Active 502348015 Problem Morbid obesity due to excess calories E66.01 Active 662545195 Problem Chronic fatigue R53.82 Active 8422 9001 Problem Unsteady gait R26.81 Active 386140 08 Problem Chronic post-traumatic stress disorder (PTSD) F43. 12 Active 697239937 Problem Controlled type 2 diabetes m ellitus without complication, without long- term current use of insulin E11.9 Active 486109135 Problem Moderate persistent asthma with exacerbation J45.4 1 Active 217946521 Problem Chronic headaches R51 Active 43 2792697 Problem Mild intermittent asthma with acute exacerbation J 45.21 Active 164977205 Problem Obesity, morbid E66.01 Active 2381 21802 Problem Overactive bladder N32.81 Active 2 84064239 Problem Anemia D64.9 Active 528364944 Problem Bipolar I disorder with depression F31.9 Active 23594869 Problem Type 2 diabetes mellitus wit h hyperglycemia, without long-term current use of insulin E11.65 Active 91381006 Problem Migraine without aura and without status migrain osus, not intractable G43.009 Active 319257352 Problem Body mass index (BMI) of 45.0-49.9 in adult Z68.42 Active 618120846 ALLERGIES No Information ENCOUNTERS Encounter Location Date Diagnosis [place] [id number] [facility] [id number] [address] [place] [id number] Jul, Controlled type 2 diabetes josh ferrara without complication, without long-term current use of insulin E11.9 [place] [address] [facility] [id number] [address] [place] [phone] Jun, [place] [address] [place] [id number] [address] [place] [phone] Jun, [place] [address] [place] [id number] [address] [place] [address] May, Encounter for Medicare [facility] wellness exam Z00.00 ; Chronic post- traumatic stress disorder (PTSD) F43.12 ; Moderate persistent asthma with exacerbation J45.41 ; Unsteady gait R26.81 ; Chronic fatigue R53.82 ; Hypoxemia R09.02 ; Acquired equinus deformity of left foot M21.6X2 ; Pure hyperglyceridemia E78.1 ; Anxiety F41.9 ; Degenerative disc disease at L5-S1 level M51.36 ; Uncomplicated asthma, unspecified asthma severity J45.909 and Overactive bladder N32.81 [place] [address] [place] [id number] [address] [place] [address] May, [place] [address] [place] [id number] [address] [place] [address] May, Controlled type 2 diabetes josh ferrara without complication, without long-term current use of insulin E11.9 [place] [address] [facility] [id number] [address] [place] [address] Apr, [place] [address] [facility] [id number] [address] [place] [address] March, Bipolar I disorder with depr ession F31.9 ; Morbid obesity E66.01 ; Type 2 diabetes mellitus with hyperglycemia, without long-term current use of insulin E11.65 ; Pain in left shoulder M25.512 and Other chronic pain G89.29 [place] [address] [address] March, Controlled type 2 diabetes m ellitus without complication, without long-term current use of insulin E11.9 [facility] [address] [address] Jan, Mild intermittent asthma wit h acute exacerbation J45.21 [place] [address] [address] Jan, Controlled type 2 diabetes m ellitus without complication, without long-term current use of insulin E11.9 [facility] [address] [address] Jan, Mild intermittent asthma wit h acute exacerbation J45.21 ; Bronchitis J40 ; Chest congestion R09.89 and Morbid obesity E66.01 [place] [address] [address] Jan, Controlled type 2 diabetes m ellitus without complication, without long-term current use of insulin E11.9 [place] [address] [address] Dec, Viral upper respiratory infe ction J06.9 ; Cough R05 and BMI 45.0- 49.9, adult Z68.42 [place] [address] [address] Dec, [place] [address] [address] 04 Dec, 2018 Type 2 diabetes mellitus wit h hyperglycemia, without long-term current use of insulin E11.65 ; Migraine without aura and without status migrainosus, not intractable G43.009 and BMI 45.0-49.9, adult Z68.42 [place] [address] [address] Nov, Degenerative disc disease at L5-S1 level M51.36 [place] [address] [address] Nov, [facility] [address] [id number] [address] [place] [address] Nov, Degenerative disc disease at L5-S1 level M51.36 [facility] [address] [id number] [address] [place] [address] Oct, [facility] [address] [id number] [address] [place] [phone] Oct, Controlled type 2 diabetes josh ferrara without complication, without long-term current use of insulin E11.9 [facility] [address] [id number] [address] [place] [address] Oct, Degenerative disc disease at L5-S1 level M51.36 [facility] [address] [id number] [address] [place] [address] Sep, Degenerative disc disease at L5-S1 level M51.36 [facility] [address] [id number] [address] [place] [address] Sep, Degenerative disc disease at L5-S1 level M51.36 [facility] [address] [id number] [address] [place] [address] Sep, Controlled type 2 diabetes josh ferrara without complication, without long-term current use of insulin E11.9 [facility] [address] [id number] [address] [place] [address] Sep, [facility] [address] [id number] [address] [place] [address] Sep, [facility] [address] [id number] [address] [place] [phone] Aug, Bipolar I disorder with depr ession F31.9 and Chronic post-traumatic stress disorder (PTSD) F43.12 [facility] [address] [id number] [address] [place] [address] Aug, [facility] [address] [id number] [address] [place] [address] Aug, [facility] [address] [id number] [address] [place] [address] Aug, Acute pain of left wrist M25 .532 and Type 2 diabetes mellitus with hyperglycemia, without long-term current use of insulin E11.65 [facility] [address] [id number] [address] [place] [phone] Aug, [facility] [address] [id number] [address] [place] [id number] Aug, [place] [address] [id number] [address] [place] [phone] Aug, Bipolar I disorder with depr ession F31.9 and Chronic post-traumatic stress disorder (PTSD) F43.12 [place] [address] [id number] [address] [place] [address] Aug, Degenerative disc disease at L5-S1 level M51.36 [place] [address] [id number] [address] [place] [address] Jul, Controlled type 2 diabetes m ellitus without complication, without long-term current use of insulin E11.9 [place] [address] [id number] [address] [place] [address] Jul, Frequent headaches R51 [place] [address] [id number] [address] [place] [address] Jul, [place] [address] [id number] [address] [place] [address] Jul, Bipolar I disorder with depr ession F31.9 and Chronic post-traumatic stress disorder (PTSD) F43.12 [place] [address] [id number] [address] [place] [address] Jul, Degenerative disc disease at L5-S1 level M51.36 [place] [address] [id number] [address] [place] [address] 07 Jul, 2018 Other chronic pain G89.29 ; Dysuria R30.0 ; Degenerative disc disease at L5-S1 level M51.36 ; Uncomplicated asthma, unspecified asthma severity J45.909 ; Vagina, candidiasis B37.3 ; Glucose found in urine on examination R81 ; Family history of diabetes mellitus Z83.3 and Controlled type 2 diabetes mellitus without complication, without long-term current use of insulin E11.9 [place] [address] [place] [id number] [address] [place] [address] Jun, Degenerative disc disease at L5-S1 level M51.36 [place] [address] [place] [id number] [place] [address] Jun, [place] [address] [address] Jun, Medicare annual wellness vis it, initial Z00.00 [place] [address] [place] [id number] [place] [address] Jun, Degenerative disc disease at L5-S1 level M51.36 [place] [address] [address] Jun, Bipolar I disorder with depr ession F31.9 and Chronic post-traumatic stress disorder (PTSD) F43.12 [place] [address] [place] [id number] [place] [address] Jun, Degenerative disc disease at L5-S1 level M51.36 [place] [address] [place] [id number] [place] [address] Jun, Degenerative disc disease at L5-S1 level M51.36 [place] [address] [place] [id number] [address] [place] [address] May, [place] [address] [place] [id number] [place] [address] May, Degenerative disc disease at L5-S1 level M51.36 [place] [address] [place] [id number] [place] [address] Apr, Degenerative disc disease at L5-S1 level M51.36 [place] [address] [facility] [id number] [address] [place] [id number] 18 Apr, 2018 Unsteady gait R26.81 ; Chron ic fatigue R53.82 ; SOB (shortness of breath) R06.02 and Moderate persistent asthma with exacerbation J45.41 [place] [address] [place] [id number] [address] [place] [address] 13 Apr, 2018 Degenerative disc disease at L5-S1 level M51.36 [place] [address] [facility] [id number] [address] [place] [address] 05 Apr, 2018 Medicare annual wellness vis it, initial Z00.00 [place] [address] [place] [id number] [place] [address] 10 Mar, 2018 [place] [address] [place] [id number] [place] [address] March, [place] [address] [address] Feb, Medicare annual wellness vis it, initial Z00.00 ; Bipolar 1 disorder F31.9 ; Low back pain M54.5 and Other chronic pain G89.29 [place] [address] [place] [id number] [address] [place] [address] Jan, [place] [address] [place] [id number] [address] [place] [phone] Dec, Frequent headaches R51 and D egenerative disc disease at L5-S1 level M51.36 [place] [address] [facility] [id number] [address] [place] [address] Nov, [facility] [address] [place] [id number] [place] [address] Nov, Chronic intractable headache , unspecified headache type R51 [facility] [address] [facility] [id number] [address] [place] [address] Nov, Chronic headaches R51 and BM I 45.0-49.9, adult Z68.42 [place] [address] [address] Nov, [place] [address] [address] Nov, Obesity, morbid E66.01 ; Unc omplicated asthma, unspecified asthma severity J45.909 ; Anxiety F41.9 ; Pure hyperglyceridemia E78.1 and Family history of diabetes mellitus Z83.3 [place] [address] [address] Oct, Bronchitis J40 [place] [address] [address] Oct, Chronic headaches R51 [address] [address] Sep, [place] [address] [address] Sep, Chronic headaches R51 ; Othe r chronic pain G89.29 ; Anemia D64.9 and Obesity, morbid E66.[address] [address] Aug, Acute suppurative otitis med ia of right ear without spontaneous rupture of tympanic membrane, recurrence not specified H66.[address] [address] Aug, Other chronic pain G89.29 [place] [address] [address] 18 Jul, 2017 Degenerative disc disease at L5-S1 level M51.[address] [address] 07 Jul, 2017 Other chronic pain G89.29 an d Sprain of deltoid ligament of left ankle, subsequent encounter S93.422D [address] [address] Jul, Degenerative disc disease at L5-S1 level M51.36 [facility] [address] [id number] [address] [place] [address] Jun, [facility] [address] [id number] [address] [place] [id number] Jun, Degenerative disc disease at L5-S1 level M51.36 [facility] [address] [id number] [address] [place] [id number] Jun, [facility] [address] [id number] [address] [place] [phone] Jun, [facility] [address] [id number] [address] [place] [address] Jun, [facility] [address] [facility] [id number] [address] [place] [phone] May, [facility] [address] [id number] [address] [place] [phone] May, [facility] [address] [facility] [id number] [address] [place] [phone] May, Rib pain on left side R07.81 [facility] [address] [facility] [id number] [address] [place] [address] Apr, Morbid obesity due to excess calories E66.01 [facility] [address] [facility] [id number] [address] [place] [address] Apr, Gastroenteritis K52.9 [facility] [address] [facility] [id number] [address] [place] [address] Apr, Degenerative disc disease at L5-S1 level M51.36 [facility] [address] [facility] [id number] [address] [place] [address] March, Degenerative disc disease at L5-S1 level M51.36 [facility] [address] [facility] [id number] [address] [place] [address] March, Bipolar 1 disorder F31.9 ; A nemia D64.9 ; Hypopotassemia E87.6 ; Uncomplicated asthma, unspecified asthma severity J45.909 ; Anxiety F41.9 ; Chronic headaches R51 and Degenerative disc disease at L5-S1 level M51.36 [place] [address] [address] March, Degenerative disc disease at L5-S1 level M51.36 [place] [address] [address] March, Degenerative disc disease at L5-S1 level M51.36 [place] [address] [address] March, Uncomplicated asthma, unspec ified asthma severity J45.909 ; Hypoxemia R09.02 ; Chronic headaches R51 and Degenerative disc disease at L5-S1 level M51.36 [place] [address] [address] March, [place] [address] [address] Feb, Acquired equinus deformity o f left foot M21.6X2 [place] [address] [address] Feb, Degenerative disc disease at L5-S1 level M51.36 [place] [address] [address] Feb, Degenerative disc disease at L5-S1 level M51.36 [place] [address] [address] Jan, Degenerative disc disease at L5-S1 level M51.36 [place] [address] [address] Jan, Degenerative disc disease at L5-S1 level M51.36 [place] [address] [address] Dec, Degenerative disc disease at L5-S1 level M51.36 [facility] [address] [id number] [address] [place] [address] 16 Dec, 2016 Overactive bladder N32.81 an d Degenerative disc disease at L5-S1 level M51.36 [facility] [address] [id number] [address] [place] [address] Dec, Degenerative disc disease at L5-S1 level M51.36 [facility] [address] [id number] [address] [place] [address] Dec, Degenerative disc disease at L5-S1 level M51.36 [facility] [address] [facility] [id number] [address] [place] [address] Nov, [facility] [address] [facility] [id number] [address] [place] [address] Nov, Chronic headaches R51 [facility] [address] [id number] [address] [place] [address] Nov, Degenerative disc disease at L5-S1 level M51.36 [facility] [address] [id number] [address] [place] [address] Nov, Left upper quadrant pain R10 .12 [facility] [address] [facility] [id number] [address] [place] [address] Nov, Degenerative disc disease at L5-S1 level M51.36 [facility] [address] [id number] [address] [place] [id number] Nov, Degenerative disc disease at L5-S1 level M51.36 [facility] [address] [facility] [id number] [address] [place] [address] Nov, Degenerative disc disease at L5-S1 level M51.36 [facility] [address] [facility] [id number] [address] [place] [address] Nov, Degenerative disc disease at L5-S1 level M51.36 [facility] [address] [facility] [id number] [address] [place] [address] Nov, Degenerative disc disease at L5-S1 level M51.36 [facility] [address] [place] [id number] [place] [address] Oct, Degenerative disc disease at L5-S1 level M51.36 [facility] [address] [place] [id number] [place] [address] Sep, Degenerative disc disease at L5-S1 level M51.36 [facility] [address] [place] [id number] [place] [address] Sep, Degenerative disc disease at L5-S1 level M51.36 ; Bipolar 1 disorder F31.9 ; Chronic headaches R51 ; Hypopotassemia E87.6 ; Uncomplicated asthma, unspecified asthma severity J45.909 ; Anxiety F41.9 ; Overactive bladder N32.81 and Anemia D64.9 [place] [address] [address] Sep, Degenerative disc disease at L5-S1 level M51.36 [facility] [address] [place] [id number] [place] [address] Aug, [facility] [address] [address] Aug, Degenerative disc disease at L5-S1 level M51.36 ; Chronic headaches R51 ; Bipolar 1 disorder F31.9 ; Overactive bladder N32.81 ; Anxiety F41.9 and Anemia D64.9 [facility] [address] [place] [id number] [place] [address] Aug, Degenerative disc disease at L5-S1 level M51.36 [facility] [address] [place] [id number] [place] [address] 18 Aug, 2016 [facility] [address] [place] [id number] [place] [address] 14 Aug, 2016 [facility] [address] [place] [id number] [place] [address] Aug, Degenerative disc disease at L5-S1 level M51.36 [facility] [address] [place] [id number] [place] [address] 28 Jul, 2016 Degenerative disc disease at L5-S1 level M51.36 [facility] [address] [place] [id number] [place] [id number] 27 Jul, 2016 [facility] [address] [place] [id number] [place] [address] 23 Jul, 2016 [facility] [address] [place] [id number] [place] [address] 22 Jul, 2016 Degenerative disc disease at L5-S1 level M51.36 ; Pure hyperglyceridemia E78.1 ; Bipolar 1 disorder F31.9 ; Anemia D64.9 ; Overactive bladder N32.81 ; Hypopotassemia E87.6 ; Anxiety F41.9 ; Mild intermittent asthma without complication J45.20 and Chronic headaches R51 [facility] [address] [address] 15 Jul, 2016 [facility] [address] [address] 07 Jul, 2016 [facility] [address] [address] Jun, [facility] [address] [address] Jun, Bipolar 1 disorder F31.9 ; A nxiety F41.9 ; Overactive bladder N32.81 ; Chronic headaches R51 ; Degenerative disc disease at L5-S1 level M51.36 ; Hypopotassemia E87.6 ; Anemia D64.9 and Morbid obesity due to excess calories E66.01 [facility] [address] [place] [id number] [place] [address] Jun, [facility] [address] [place] [id number] [place] [address] May, Overactive bladder N32.81 [facility] [address] [facility] [id number] [address] [place] [address] May, Bipolar 1 disorder F31.9 ; A nemia D64.9 ; Overactive bladder N32.81 ; Chronic headaches R51 ; Hypopotassemia E87.6 ; Degenerative disc disease at L5-S1 level M51.36 and Uncomplicated asthma, unspecified asthma severity J45.909 [facility] [address] [facility] [id number] [address] [place] [phone] May, [facility] [address] [facility] [id number] [address] [place] [id number] May, Chronic headaches R51 [facility] [address] [facility] [id number] [address] [place] [phone] Apr, Chronic headaches R51 [facility] [address] [facility] [id number] [address] [place] [id number] March, Chronic headaches R51 [facility] [address] [facility] [id number] [address] [place] [id number] March, [facility] [address] [facility] [id number] [address] [place] [id number] Feb, Chronic headaches R51 and De generative disc disease at L5-S1 level M51.36 [facility] [address] [facility] [id number] [address] [place] [id number] Feb, Hypopotassemia E87.6 ; Anemi a D64.9 ; Overactive bladder N32.81 ; Chronic headaches R51 and Degenerative disc disease at L5-S1 level M51.36 [facility] [address] [facility] [id number] [address] [place] [id number] Feb, Bipolar 1 disorder F31.9 ; A nemia D64.9 and Overactive bladder N32.81 [facility] [address] [facility] [id number] [address] [place] [phone] Feb, Scabies B86 ; Bipolar 1 diso rder F31.9 ; Anemia D64.9 ; Overactive bladder N32.81 ; Chronic headaches R51 ; Degenerative disc disease at L5-S1 level M51.36 and Wellness examination Z00.00 [facility] [facility] [address] [facility] [id number] [address] [place] [id number] 17 Feb, 2009 [facility] [address] [facility] [id number] [address] [place] [phone] 10 Oct, 2008 IMMUNIZATIONS No Known Immunizations SOCIAL HISTORY Never Assessed REASON FOR VISIT PLAN OF CARE VITAL SIGNS MEDICATIONS Medication Instructions Dosage Frequency Start Date End Date Duration S jf Metformin HCl 1000 mg Orally 2 times a day 1 tablet with a meal 12h Jul, 30 days Active RESULTS No Results PROCEDURES No Known procedures INSTRUCTIONS MEDICATIONS ADMINISTERED No Known Medications MEDICAL (GENERAL) HISTORY Type Description Date Medical History Bipolar Medical History Slipped Disc in lumbar spine Medical History Bulging disc in lumbar spine and 3 cracked disc in lumbar spine and cracked tailbone Medical History Anemia Medical History Depression Surgical History left ear drum replacement Surgical History hernia Surgical History cholecystectomy Surgical History hysteretomy partial left ovaries Surgical History Left hip interstem replaced 05/2016 Hospitalization History [facility]- Headache 12/18/2017
--- OUTSIDE RECORDS SUMMARY | 2019-11-27 06:40 | XMS REPORT | Clinical Summary ---
Author Author [facility] Organization [facility] Address Unknown Phone Unavailable Care Team Providers Care Charge Nurse Name Role Phone Lindsey Carrington JOSÉ MIGUEL PCP Source Comments Some departments are not documenting in the electronic medical record. If you d o not see the information that you expected, contact [facility] [employer] Information Management department at [phone] for further assistan ce in locating additional records.[facility] Allergies Comments Active Allergy Reactions Severity Noted Date Paper tape Adhesive RASH Medium 11/06/2016 Amoxicillin STOMACH UPSET Low 11/06/2016 Codeine HIVES Medium 11/06/2016 Morphine HIVES Medium 11/06/2016 Penicillins STOMACH UPSET Low 11/06/2016 itching [place] Dye HIVES Medium 11/06/2016 itching [place] Dye HIVES Medium 11/06/2016 Sulfa (Sulfonamide ANAPHYLAXIS High 11/06/2016 Antibiotics) Medications End Date Status Medication Sig Dispensed Refills Start Date Active topiramate (TOPAMAX) 200 Take 200 mg 0 mg tablet by mouth every 12 hours. Active QUEtiapine (SEROQUEL) 200 Take 200 mg 0 mg tablet by mouth at bedtime daily. Active venlafaxine XR (EFFEXOR Take 150 mg 0 XR) 150 mg capsule by mouth daily. Take with food. Active potassium chloride SR Take 20 mEq 0 (K-DUR) 20 mEq tablet by mouth twice daily. Take with a meal and a full glass of water. Active gabapentin (NEURONTIN) Take 600 mg 0 600 mg tablet by mouth three times daily. Active ferrous sulfate (FEOSOL, Take 325 mg 0 FEROSUL) 325 mg (65 mg by mouth iron) tablet three times daily. Take on an empty stomach at least 1 hour before or 2 hours after food. Active HYDROcodone-ibuprofen Take 1 Tab by 0 (VICOPROFEN) 7.5-200 mg mouth every 6 tablet hours as needed for Pain Active albuterol (PROAIR HFA, Inhale 2 0 VENTOLIN HFA, OR puffs by PROVENTIL HFA) 90 mouth into mcg/actuation inhaler the lungs every 6 hours as needed for Wheezing or Shortness of Breath. Shake well before use. Active Problems Problem Noted Date Overactive bladder 09/21/2017 Overview: Added automatically from request for huitron rgery [id number] Mixed stress and urge urinary incontinence Overview: 2008 - Interstim placement for urinary urgency/frequency, and MANPREET. Battery failed. 2011 - Interstim battery replacement. L ead malfunction 2012 - Complete Interstim replacement. Worked well until fell on ice 2014 - Complete Interstim replacement. Battery failed 11/2015 - Complete Interstim replacement (Dr. Rogers) 04/2016 - Revision of L Interstim pocket (2/2 pain) 10/24/16 - Persistent MANPREET, urgency, chip quency on Oxybutynin 5mg BID. Refer to [facility] 11/06/16 - Continued MANPREET, urgency, freq uency on Oxybutynin 5mg BID. PVR 165cc. Scheduled for UDS w/ Interstim o ff UDS which revealed a small capacity, emptying , no stress leak, an d DO with large leak up to 40cm H20. 02/02/17 - Interstim device removal. 100 u botox (baseline pvr >130mL but normalized; symptoms much improved. L ast Assessment & Plan: - miralax one cap daily - botox 100u on 09/04/17 Social History Date Tobacco Use Types Packs/Day Years Used Quit: 04/06/1998 Former Smoker Smokeless Tobacco: Never Used Drinks/Week oz/Week Comments Alcohol Use No Sex Assigned at Date Recorded Not on file Industry Job Start Date Occupation Not on file Not on file Not on file Travel End Travel History Travel Start No recent travel history available. Last Filed Vital Signs Reading Time Taken Comments Vital Sign 124/77 09/21/2017 12:15 PM CDT Blood Pressure 89 09/21/2017 12:15 PM CDT Pulse 36.5 C (97.7 F) 09/21/2017 12:20 PM CDT Temperature - - Respiratory Rate 94% 09/21/2017 12:15 PM CDT Oxygen Saturation - - Inhaled Oxygen Concentration 125.3 kg (276 lb 3.8 oz) 09/21/2017 10:15 AM CDT Weight 162.6 cm (5' 4") 09/21/2017 10:15 AM CDT Height 47.42 09/21/2017 10:15 AM CDT Body Mass Index Plan of Treatment Health Maintenance Due Date Last Done Comments MEDICARE ANNUAL WELLNESS 1974 VISIT DTAP/TDAP VACCINES (1 - 1985 Tdap) HIV SCREENING 1989 PHYSICAL (COMPREHENSIVE) 1992 EXAM CERVICAL CANCER SCREENING 2004 BREAST CANCER SCREENING 2014 INFLUENZA VACCINE 06/26/2019 Implants Device Identifier Shelf Expiration Date Model / Serial / L ot Explanted Type Area Manufactur er [id number] / [id number] / [id number] Generator Electrode Left: Buttocks Implanted: Qty: 1 Explanted: Qty: 1 on 02/02/2017 at [facility] Description:electrode and generator removed Results Not on filefrom Last 3 Months Insurance Type Payer Benefit Subscriber ID Effective Phone Address Plan / Dates Group Medicare MEDICARE MEDICARE xxxxxxxxxx 2008- PART A AND Present B Medicaid [facility] MEDICAID [facility] xxxxxxxxxxx [id number] [place] [phone] Advance Directives 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
--- OUTSIDE RECORDS SUMMARY | 2019-11-27 06:41 | XMS REPORT ---
Author Author Tish BRANDON Organization [facility] Address [address] [place] [address] Care Team Providers Care Biodiesel Product Manager Name Role Phone ANDRE BRANDON Unavailable PROBLEMS Type Condition ICD9-CM Code XWG18-RY Code Onset Dates Condition S tatus SNOMED Code Problem Degenerative disc disease at L5-S1 level M51.36 Active 23238747 Problem Hypopotassemia E87.6 Active 75224 004 Problem Anxiety F41.9 Active 42404125 Problem Uncomplicated asthma, unspecified asthma severity J45.909 Active 487006331 Problem Hypoxemia R09.02 Active 933257426 Problem Acquired equinus deformity of left foot M21.6X2 Active 69831282 Problem Other chronic pain G89.29 Active 8 6694546 Problem Pure hyperglyceridemia E78.1 Active 657948157 Problem Morbid obesity due to excess calories E66.01 Active 773782870 Problem Chronic fatigue R53.82 Active 8422 9001 Problem Unsteady gait R26.81 Active 156334 08 Problem Chronic post-traumatic stress disorder (PTSD) F43. 12 Active 379677567 Problem Controlled type 2 diabetes m ellitus without complication, without long- term current use of insulin E11.9 Active 647700771 Problem Moderate persistent asthma with exacerbation J45.4 1 Active 740144063 Problem Chronic headaches R51 Active 43 1436982 Problem Mild intermittent asthma with acute exacerbation J 45.21 Active 748474226 Problem Obesity, morbid E66.01 Active 2381 83507 Problem Overactive bladder N32.81 Active 2 79074910 Problem Anemia D64.9 Active 410965317 Problem Bipolar I disorder with depression F31.9 Active 01927684 Problem Type 2 diabetes mellitus wit h hyperglycemia, without long-term current use of insulin E11.65 Active 50675861 Problem Migraine without aura and without status migrain osus, not intractable G43.009 Active 448704806 Problem Body mass index (BMI) of 45.0-49.9 in adult Z68.42 Active 152069111 ALLERGIES Substance Reaction Event Type Date Status Amoxicillin rash Drug Allergy Jan, Active paper tape rash Non Drug Allergy Jan, Active pink dye, purple dye sick to stomach Non Drug Allergy Jan, Active Penicillin V Potassium Unknown Drug Allergy Jan, Activ e Morphine Sulfate anaphylaxis Drug Allergy Jan, Active Mobic fall asleep and sleep walk Drug Allergy Jan, A ctive Codeine Sulfate Unknown Drug Allergy Jan, Active Sulfamethoxazole-Trimethoprim Unknown Drug Allergy Jan, 9 Active ENCOUNTERS Encounter Location Date Diagnosis [place] [address] [place] [id number] [place] [address] Jul, Controlled type 2 diabetes josh ferrara without complication, without long-term current use of insulin E11.9 [place] [address] [place] [address] Jun, [place] [address] [address] Jun, [place] [address] [place] [id number] [place] [address] May, Encounter for Medicare annua l wellness exam Z00.00 ; Chronic post- traumatic stress disorder (PTSD) F43.12 ; Moderate persistent asthma with exacerbation J45.41 ; Unsteady gait R26.81 ; Chronic fatigue R53.82 ; Hypoxemia R09.02 ; Acquired equinus deformity of left foot M21.6X2 ; Pure hyperglyceridemia E78.1 ; Anxiety F41.9 ; Degenerative disc disease at L5-S1 level M51.36 ; Uncomplicated asthma, unspecified asthma severity J45.909 and Overactive bladder N32.81 [place] [address] [place] [id number] [place] [address] May, [place] [address] [place] [id number] [place] [address] May, Controlled type 2 diabetes josh ferrara without complication, without long-term current use of insulin E11.9 [place] [address] [place] [id number] [place] [address] Apr, [place] [address] [place] [id number] [place] [address] March, Bipolar I disorder with depr ession F31.9 ; Morbid obesity E66.01 ; Type 2 diabetes mellitus with hyperglycemia, without long-term current use of insulin E11.65 ; Pain in left shoulder M25.512 and Other chronic pain G89.29 [place] [address] [address] March, Controlled type 2 diabetes m freedomitus without complication, without long-term current use of insulin E11.9 [facility] [place] [address] [address] Jan, Mild intermittent asthma wit h acute exacerbation J45.21 [place] [address] [place] [id number] [place] [address] Jan, Controlled type 2 diabetes m freedomitus without complication, without long-term current use of insulin E11.9 [facility] [address] [place] [address] Jan, Mild intermittent asthma wit h acute exacerbation J45.21 ; Bronchitis J40 ; Chest congestion R09.89 and Morbid obesity E66.01 [place] [address] [place] [id number] [place] [address] Jan, Controlled type 2 diabetes m freedomitus without complication, without long-term current use of insulin E11.9 [place] [address] [place] [id number] [place] [address] Dec, Viral upper respiratory infe ction J06.9 ; Cough R05 and BMI 45.0- 49.9, adult Z68.42 [place] [id number] [place] [address] Dec, [place] [address] [place] [id number] [place] [address] Dec, Type 2 diabetes mellitus wit h hyperglycemia, without long-term current use of insulin E11.65 ; Migraine without aura and without status migrainosus, not intractable G43.009 and BMI 45.0-49.9, adult Z68.42 [facility] [address] [id number] [address] [place] [address] Nov, Degenerative disc disease at L5-S1 level M51.36 [facility] [address] [id number] [address] [place] [address] Nov, [facility] [address] [id number] [address] [place] [address] Nov, Degenerative disc disease at L5-S1 level M51.36 [facility] [address] [id number] [address] [place] [address] Oct, [facility] [address] [facility] [id number] [address] [place] [address] Oct, Controlled type 2 diabetes m josias without complication, without long-term current use of insulin E11.9 [facility] [address] [id number] [address] [place] [address] Oct, Degenerative disc disease at L5-S1 level M51.36 [facility] [address] [id number] [address] [place] [address] Sep, Degenerative disc disease at L5-S1 level M51.36 [facility] [address] [id number] [address] [place] [address] Sep, Degenerative disc disease at L5-S1 level M51.36 [facility] [address] [id number] [address] [place] [address] Sep, Controlled type 2 diabetes m josias without complication, without long-term current use of insulin E11.9 [facility] [address] [id number] [address] [place] [address] Sep, [facility] [address] [id number] [address] [place] [address] Sep, [place] [address] [id number] [address] [place] [address] Aug, Bipolar I disorder with depr ession F31.9 and Chronic post-traumatic stress disorder (PTSD) F43.12 [place] [address] [id number] [address] [place] [address] Aug, [place] [address] [id number] [address] [place] [address] Aug, [place] [address] [id number] [address] [place] [address] Aug, Acute pain of left wrist M25 .532 and Type 2 diabetes mellitus with hyperglycemia, without long-term current use of insulin E11.65 [place] [address] [id number] [address] [place] [address] Aug, [place] [address] [id number] [address] [place] [address] Aug, [place] [address] [id number] [address] [place] [address] Aug, Bipolar I disorder with depr ession F31.9 and Chronic post-traumatic stress disorder (PTSD) F43.12 [place] [address] [id number] [address] [place] [address] Aug, Degenerative disc disease at L5-S1 level M51.36 [place] [address] [id number] [address] [place] [address] Jul, Controlled type 2 diabetes m ellitus without complication, without long-term current use of insulin E11.9 [place] [id number] [id number] [address] [place] [address] Jul, Frequent headaches R51 [place] [address] [id number] [address] [place] [address] Jul, [place] [address] [id number] [address] [place] [address] Jul, Bipolar I disorder with depr ession F31.9 and Chronic post-traumatic stress disorder (PTSD) F43.12 [place] [address] [id number] [address] [place] [address] 10 Jul, 2018 Degenerative disc disease at L5-S1 level M51.36 [place] [address] [facility] [id number] [address] [place] [address] 07 Jul, 2018 Other chronic pain G89.29 ; Dysuria R30.0 ; Degenerative disc disease at L5-S1 level M51.36 ; Uncomplicated asthma, unspecified asthma severity J45.909 ; Vagina, candidiasis B37.3 ; Glucose found in urine on examination R81 ; Family history of diabetes mellitus Z83.3 and Controlled type 2 diabetes mellitus without complication, without long-term current use of insulin E11.9 [place] [address] [facility] [id number] [address] [place] [address] Jun, Degenerative disc disease at L5-S1 level M51.36 [place] [address] [facility] [id number] [address] [place] [address] Jun, [place] [address] [facility] [id number] [address] [place] [address] Jun, Medicare annual wellness vis it, initial Z00.00 [place] [address] [facility] [id number] [address] [place] [address] Jun, Degenerative disc disease at L5-S1 level M51.36 [place] [address] [id number] [address] [place] [address] Jun, Bipolar I disorder with depr ession F31.9 and Chronic post-traumatic stress disorder (PTSD) F43.12 [place] [address] [facility] [id number] [address] [place] [address] Jun, Degenerative disc disease at L5-S1 level M51.36 [place] [address] [facility] [id number] [address] [place] [address] Jun, Degenerative disc disease at L5-S1 level M51.36 [place] [address] [place] [id number] [place] [address] May, [place] [address] [place] [id number] [place] [address] May, Degenerative disc disease at L5-S1 level M51.36 [place] [address] [place] [id number] [place] [address] Apr, Degenerative disc disease at L5-S1 level M51.36 [place] [address] [place] [id number] [place] [address] 18 Apr, 2018 Unsteady gait R26.81 ; Chron ic fatigue R53.82 ; SOB (shortness of breath) R06.02 and Moderate persistent asthma with exacerbation J45.41 [place] [address] [place] [id number] [place] [address] 13 Apr, 2018 Degenerative disc disease at L5-S1 level M51.36 [place] [address] [place] [id number] [address] [place] [address] 05 Apr, 2018 Medicare annual wellness vis it, initial Z00.00 [place] [address] [address] March, [place] [address] [place] [id number] [place] [address] March, [place] [address] [place] [id number] [address] [place] [address] Feb, Medicare annual wellness vis it, initial Z00.00 ; Bipolar 1 disorder F31.9 ; Low back pain M54.5 and Other chronic pain G89.29 [place] [address] [place] [id number] [place] [address] Jan, [place] [address] [place] [id number] [place] [address] Dec, Frequent headaches R51 and D egenerative disc disease at L5-S1 level M51.36 [place] [address] [place] [id number] [place] [address] [place] [address] Nov, [facility] [address] [place] [id number] [place] [address] Nov, Chronic intractable headache , unspecified headache type R51 [facility] [address] [place] [id number] [place] [address] Nov, Chronic headaches R51 and BM I 45.0-49.9, adult Z68.42 [place] [address] [address] Nov, [place] [address] [address] Nov, Obesity, morbid E66.01 ; Unc omplicated asthma, unspecified asthma severity J45.909 ; Anxiety F41.9 ; Pure hyperglyceridemia E78.1 and Family history of diabetes mellitus Z83.3 [place] [address] [address] Oct, Bronchitis J40 [place] [address] [address] Oct, Chronic headaches R51 [place] [address] [address] Sep, [place] [address] [address] Sep, Chronic headaches R51 ; Othe r chronic pain G89.29 ; Anemia D64.9 and Obesity, morbid E66.01 [place] [address] [place] [id number] [place] [address] Aug, Acute suppurative otitis med ia of right ear without spontaneous rupture of tympanic membrane, recurrence not specified H66.001 [place] [address] [place] [id number] [place] [address] Aug, Other chronic pain G89.29 [place] [address] [address] Jul, Degenerative disc disease at L5-S1 level M51.36 [facility] [address] [id number] [address] [place] [address] 07 Jul, 2017 Other chronic pain G89.29 an d Sprain of deltoid ligament of left ankle, subsequent encounter S93.422D [facility] [address] [id number] [address] [place] [address] 05 Jul, 2017 Degenerative disc disease at L5-S1 level M51.36 [facility] [address] [id number] [address] [place] [address] Jun, [facility] [address] [id number] [address] [place] [address] Jun, Degenerative disc disease at L5-S1 level M51.36 [facility] [address] [id number] [address] [place] [address] Jun, [facility] [address] [id number] [address] [place] [address] Jun, [facility] [address] [id number] [address] [place] [address] Jun, [facility] [address] [id number] [address] [place] [address] May, [facility] [address] [id number] [address] [place] [address] May, [facility] [address] [id number] [address] [place] [address] May, Rib pain on left side R07.81 [facility] [address] [id number] [address] [place] [address] Apr, Morbid obesity due to excess calories E66.01 [facility] [address] [id number] [address] [place] [address] 16 Apr, 2017 Gastroenteritis K52.9 [facility] [address] [address] Apr, Degenerative disc disease at L5-S1 level M51.36 [place] [address] [address] March, Degenerative disc disease at L5-S1 level M51.36 [place] [address] [address] March, Bipolar 1 disorder F31.9 ; A nemia D64.9 ; Hypopotassemia E87.6 ; Uncomplicated asthma, unspecified asthma severity J45.909 ; Anxiety F41.9 ; Chronic headaches R51 and Degenerative disc disease at L5-S1 level M51.36 [place] [address] [address] March, Degenerative disc disease at L5-S1 level M51.36 [place] [address] [address] March, Degenerative disc disease at L5-S1 level M51.36 [place] [address] [address] March, Uncomplicated asthma, unspec ified asthma severity J45.909 ; Hypoxemia R09.02 ; Chronic headaches R51 and Degenerative disc disease at L5-S1 level M51.36 [place] [address] [address] March, [place] [address] [address] Feb, Acquired equinus deformity o f left foot M21.6X2 [place] [address] [address] Feb, Degenerative disc disease at L5-S1 level M51.36 [place] [address] [address] Feb, Degenerative disc disease at L5-S1 level M51.36 [place] [address] [place] [address] [place] [address] Jan, Degenerative disc disease at L5-S1 level M51.36 [facility] [address] [facility] [id number] [address] [place] [address] Jan, Degenerative disc disease at L5-S1 level M51.36 [facility] [address] [facility] [id number] [address] [place] [address] Dec, Degenerative disc disease at L5-S1 level M51.36 [facility] [address] [facility] [id number] [address] [place] [address] Dec, Overactive bladder N32.81 an d Degenerative disc disease at L5-S1 level M51.36 [facility] [address] [facility] [id number] [address] [place] [address] Dec, Degenerative disc disease at L5-S1 level M51.36 [facility] [address] [facility] [id number] [address] [place] [address] Dec, Degenerative disc disease at L5-S1 level M51.36 [facility] [address] [id number] [address] [place] [address] Nov, [facility] [address] [facility] [id number] [address] [place] [address] Nov, Chronic headaches R51 [facility] [address] [facility] [id number] [address] [place] [address] Nov, Degenerative disc disease at L5-S1 level M51.36 [facility] [address] [facility] [id number] [address] [place] [address] Nov, Left upper quadrant pain R10 .12 [facility] [address] [facility] [id number] [address] [place] [address] Nov, Degenerative disc disease at L5-S1 level M51.36 [facility] [address] [facility] [id number] [address] [place] [address] Nov, Degenerative disc disease at L5-S1 level M51.36 [place] [address] [address] Nov, Degenerative disc disease at L5-S1 level M51.36 [place] [address] [place] [id number] [place] [address] Nov, Degenerative disc disease at L5-S1 level M51.36 [place] [address] [address] Nov, Degenerative disc disease at L5-S1 level M51.36 [place] [address] [address] Oct, Degenerative disc disease at L5-S1 level M51.36 [place] [address] [address] Sep, Degenerative disc disease at L5-S1 level M51.36 [place] [address] [address] Sep, Degenerative disc disease at L5-S1 level M51.36 ; Bipolar 1 disorder F31.9 ; Chronic headaches R51 ; Hypopotassemia E87.6 ; Uncomplicated asthma, unspecified asthma severity J45.909 ; Anxiety F41.9 ; Overactive bladder N32.81 and Anemia D64.9 [place] [address] [address] Sep, Degenerative disc disease at L5-S1 level M51.36 [place] [address] [address] Aug, [place] [address] [address] Aug, Degenerative disc disease at L5-S1 level M51.36 ; Chronic headaches R51 ; Bipolar 1 disorder F31.9 ; Overactive bladder N32.81 ; Anxiety F41.9 and Anemia D64.9 [place] [address] [address] 24 Aug, 2016 Degenerative disc disease at L5-S1 level M51.36 [facility] [address] [facility] [id number] [address] [place] [address] 18 Aug, 2016 [facility] [address] [facility] [id number] [address] [place] [address] 14 Aug, 2016 [facility] [address] [facility] [id number] [address] [place] [address] 10 Aug, 2016 Degenerative disc disease at L5-S1 level M51.36 [facility] [address] [facility] [id number] [address] [place] [address] 28 Jul, 2016 Degenerative disc disease at L5-S1 level M51.36 [facility] [address] [facility] [id number] [address] [place] [address] 27 Jul, 2016 [facility] [address] [place] [id number] [place] [address] 23 Jul, 2016 [facility] [address] [place] [id number] [place] [address] 22 Jul, 2016 Degenerative disc disease at L5-S1 level M51.36 ; Pure hyperglyceridemia E78.1 ; Bipolar 1 disorder F31.9 ; Anemia D64.9 ; Overactive bladder N32.81 ; Hypopotassemia E87.6 ; Anxiety F41.9 ; Mild intermittent asthma without complication J45.20 and Chronic headaches R51 [facility] [address] [facility] [id number] [address] [place] [address] 15 Jul, 2016 [facility] [address] [facility] [id number] [address] [place] [address] 07 Jul, 2016 [facility] [address] [place] [id number] [place] [address] Jun, [facility] [address] [facility] [id number] [address] [place] [address] Jun, Bipolar 1 disorder F31.9 ; A nxiety F41.9 ; Overactive bladder N32.81 ; Chronic headaches R51 ; Degenerative disc disease at L5-S1 level M51.36 ; Hypopotassemia E87.6 ; Anemia D64.9 and Morbid obesity due to excess calories E66.01 [place] [address] [address] Jun, [place] [address] [address] May, Overactive bladder N32.81 [place] [address] [address] May, Bipolar 1 disorder F31.9 ; A nemia D64.9 ; Overactive bladder N32.81 ; Chronic headaches R51 ; Hypopotassemia E87.6 ; Degenerative disc disease at L5-S1 level M51.36 and Uncomplicated asthma, unspecified asthma severity J45.909 [place] [address] [address] May, [place] [address] [address] May, Chronic headaches R51 [place] [address] [address] Apr, Chronic headaches R51 [place] [address] [address] March, Chronic headaches R51 [place] [address] [address] March, [place] [address] [address] Feb, Chronic headaches R51 and De generative disc disease at L5-S1 level M51.36 [place] [address] [address] Feb, Hypopotassemia E87.6 ; Anemi a D64.9 ; Overactive bladder N32.81 ; Chronic headaches R51 and Degenerative disc disease at L5-S1 level M51.36 [place] [address] [facility] [id number] [address] [place] [address] 07 Feb, 2016 Bipolar 1 disorder F31.9 ; A nemia D64.9 and Overactive bladder N32.81 [place] [address] [address] [facility] [id number] [address] [place] [id number] 06 Feb, 2016 Scabies B86 ; Bipolar 1 diso rder F31.9 ; Anemia D64.9 ; Overactive bladder N32.81 ; Chronic headaches R51 ; Degenerative disc disease at L5-S1 level M51.36 and Wellness examination Z00.00 [place] [address] [address] [facility] [id number] [address] [place] [id number] 17 Feb, 2009 [place] [address] [address] [facility] [id number] [address] [place] [id number] 10 Oct, 2008 IMMUNIZATIONS No Known Immunizations SOCIAL HISTORY Never Assessed REASON FOR VISIT cough/ear pain, chest congestion, wheezing, sore throat, body aches, nasal conge stion. symptoms started two days ago. [facility] PLAN OF CARE Activity Details Follow Up if not improving with PCP or reg follow up Reason: Future/Pending Procedure NEBULIZER TREATMENT VITAL SIGNS Height 65.0 in 2019-02-14 Weight 292.2 lbs 2019-02-14 Temperature 97.8 degrees Fahrenheit 2019-02-14 Heart Rate 79 bpm 2019-02-14 Respiratory Rate 22 2019-02-14 Oximetry 96 % 2019-02-14 BMI 48.62 kg/m2 2019-02-14 Blood pressure systolic 115 mmHg 2019-02-14 Blood pressure diastolic 80 mmHg 2019-02-14 MEDICATIONS Medication Instructions Dosage Frequency Start Date End Date Duration S tatus Neurontin 600 MG Orally Three times a day 1 tablet 8h 30 Active Glucocard Expression Test - In Vitro 2 times a day test blood sugar 12h 10 Aug, 2018 Active Hydrocodone-Ibuprofen 7.5-200 MG Orally every 6 hrs 1 tablet as nee ded 6h 15 Jan, 2019 28 days Active Azithromycin 500 MG Orally Once a day 1 tablet 24h Jan, 3 days Active PredniSONE 20 MG Orally Once a day 2 tablet 24h Jan, 5 days Active Zofran ODT 4 MG Orally every 8 hrs 1 tablet on the tongue and al low to dissolve 8h Nov, Active Iycynnuqwu-MPFT-Rwdptyhz 50-325-40 MG Orally every 4 hrs 1 tablet a s needed 4h Dec, Active Klor-Con M20 20MEQ 1 tablet 12h 30 Acti ve Ozempic 0.25 or 0.5 MG/DOSE Subcutaneous once weekly Inject 0.5 mg 28 Active Maxalt 10 MG Orally Once a day 1 tablet as needed one time 24h 2018 Active Iron 325 (65 Fe) MG Orally Once a day 1 tablet 24h 3 0 day(s) Active Topamax 100 mg Orally Twice a day 2 tablets 12h 30 Active Seroquel 200 mg Orally Once a day 1 tablet at bedtime 24h Active Ventolin HFA 108 (90 Base) MCG/ACT Inhalation every 6 hrs 2 puffs a s needed 6h Jul, Active Effexor XR 150 MG Orally Once a day 1 capsule with food 24h Active Vistaril 25 MG Orally every 8 hrs 1 capsule as needed 8h Jul 30 day(s) Active Metformin HCl 1000 mg Orally 2 times a day 1 tablet with a meal 12h Jul, 30 days Active RESULTS Name Result Date Reference Range INFLUENZA A & B (IN HOUSE) 2019-02-14 INFLUENZA A neg INFLUENZA B neg Control + Lot # [id number] Exp date 09/10/2021 PROCEDURES Procedure Date Ordered Result Body Site FOR[facility] VISIT ESTABLISHED PATIENT February 14, 2019 JUVENAL/STEPHANIE RX INITIAL February 14, 2019 INFLUENZA ASSAY W/OPTIC February 14, 2019 INSTRUCTIONS MEDICATIONS ADMINISTERED No Known Medications MEDICAL [...] interstem replaced 05/2016 Hospitalization History [facility]- Headache 12/18/2017
--- OUTSIDE RECORDS SUMMARY | 2019-11-27 06:41 | XMS REPORT ---
Author Author Tish NIEVES Organization [facility] Address [address] [place] [address] Care Team Providers Care Top Trimmer Name Role Phone EZEQUIEL NIELS Unavailable PROBLEMS Type Condition ICD9-CM Code NUI79-MF Code Onset Dates Condition S tatus SNOMED Code Problem Degenerative disc disease at L5-S1 level M51.36 Active 03390241 Problem Hypopotassemia E87.6 Active 69098 004 Problem Anxiety F41.9 Active 35891958 Problem Uncomplicated asthma, unspecified asthma severity J45.909 Active 436551953 Problem Hypoxemia R09.02 Active 339903962 Problem Acquired equinus deformity of left foot M21.6X2 Active 23032869 Problem Other chronic pain G89.29 Active 8 0465637 Problem Pure hyperglyceridemia E78.1 Active 880317227 Problem Morbid obesity due to excess calories E66.01 Active 979648644 Problem Chronic fatigue R53.82 Active 8422 9001 Problem Unsteady gait R26.81 Active 659545 08 Problem Chronic post-traumatic stress disorder (PTSD) F43. 12 Active 823920831 Problem Controlled type 2 diabetes m ellitus without complication, without long- term current use of insulin E11.9 Active 762732198 Problem Moderate persistent asthma with exacerbation J45.4 1 Active 272996890 Problem Chronic headaches R51 Active 43 0876255 Problem Mild intermittent asthma with acute exacerbation J 45.21 Active 292805047 Problem Obesity, morbid E66.01 Active 2381 06739 Problem Overactive bladder N32.81 Active 2 04574403 Problem Anemia D64.9 Active 936755769 Problem Bipolar I disorder with depression F31.9 Active 44905502 Problem Type 2 diabetes mellitus wit h hyperglycemia, without long-term current use of insulin E11.65 Active 56087344 Problem Migraine without aura and without status migrain osus, not intractable G43.009 Active 957987727 Problem Body mass index (BMI) of 45.0-49.9 in adult Z68.42 Active 403438584 ALLERGIES No Information ENCOUNTERS Encounter Location Date Diagnosis [facility] [address] [facility] [id number] [address] [place] [phone] Jan, Morbid obesity E66.01 ; Ches t congestion R09.89 ; Mild intermittent asthma with acute exacerbation J45.21 and Bronchitis J40 [facility] [address] [address] Jan, Controlled type 2 diabetes josh ferrara without complication, without long-term current use of insulin E11.9 [place] [address] [address] 13 Dec, 2018 Viral upper respiratory infe ction J06.9 ; Cough R05 and BMI 45.0- 49.9, adult Z68.42 [facility] [address] [address] 04 Dec, 2018 [facility] [address] [address] 04 Dec, 2018 Type 2 diabetes mellitus wit h hyperglycemia, without long-term current use of insulin E11.65 ; Migraine without aura and without status migrainosus, not intractable G43.009 and BMI 45.0-49.9, adult Z68.42 [facility] [address] [place] [id number] [address] [place] [address] Nov, Degenerative disc disease at L5-S1 level M51.36 [facility] [address] [place] [id number] [address] [place] [address] Nov, [place] [address] [address] Nov, Degenerative disc disease at L5-S1 level M51.36 [facility] [address] [place] [id number] [address] [place] [address] Oct, [facility] [address] [place] [id number] [address] [place] [address] Oct, Controlled type 2 diabetes josh ferrara without complication, without long-term current use of insulin E11.9 [facility] [address] [id number] [address] [place] [phone] Oct, Degenerative disc disease at L5-S1 level M51.36 [facility] [address] [id number] [address] [place] [address] Sep, Degenerative disc disease at L5-S1 level M51.36 [facility] [address] [id number] [address] [place] [address] Sep, Degenerative disc disease at L5-S1 level M51.36 [facility] [address] [id number] [address] [place] [address] Sep, Controlled type 2 diabetes josh ferrara without complication, without long-term current use of insulin E11.9 [facility] [address] [id number] [address] [place] [phone] Sep, [facility] [address] [id number] [address] [place] [phone] Sep, [facility] [address] [id number] [address] [place] [phone] Aug, Bipolar I disorder with depr ession F31.9 and Chronic post-traumatic stress disorder (PTSD) F43.12 [facility] [address] [id number] [address] [place] [id number] Aug, [facility] [address] [id number] [address] [place] [phone] Aug, [facility] [address] [id number] [address] [place] [address] Aug, Acute pain of left wrist M25 .532 and Type 2 diabetes mellitus with hyperglycemia, without long-term current use of insulin E11.65 [facility] [address] [id number] [address] [place] [phone] Aug, [facility] [address] [id number] [address] [place] [address] Aug, [place] [address] [facility] [id number] [address] [place] [address] Aug, Bipolar I disorder with depr ession F31.9 and Chronic post-traumatic stress disorder (PTSD) F43.12 [place] [address] [facility] [id number] [address] [place] [address] Aug, Degenerative disc disease at L5-S1 level M51.36 [place] [address] [place] [id number] [address] [place] [address] Jul, Controlled type 2 diabetes m ellitus without complication, without long-term current use of insulin E11.9 [place] [address] [place] [id number] [place] [address] Jul, Frequent headaches R51 [place] [address] [place] [id number] [address] [place] [address] Jul, [place] [address] [place] [id number] [address] [place] [address] Jul, Bipolar I disorder with depr ession F31.9 and Chronic post-traumatic stress disorder (PTSD) F43.12 [place] [address] [place] [id number] [address] [place] [address] 10 Jul, 2018 Degenerative disc disease at L5-S1 level M51.36 [place] [address] [place] [id number] [address] [place] [address] 07 Jul, 2018 Other chronic pain G89.29 ; Dysuria R30.0 ; Degenerative disc disease at L5-S1 level M51.36 ; Uncomplicated asthma, unspecified asthma severity J45.909 ; Vagina, candidiasis B37.3 ; Glucose found in urine on examination R81 ; Family history of diabetes mellitus Z83.3 and Controlled type 2 diabetes mellitus without complication, without long-term current use of insulin E11.9 [place] [address] [place] [id number] [address] [place] [address] Jun, Degenerative disc disease at L5-S1 level M51.36 [place] [address] [facility] [id number] [address] [place] [address] Jun, [place] [address] [facility] [id number] [address] [place] [address] Jun, Medicare annual wellness vis it, initial Z00.00 [place] [address] [facility] [id number] [address] [place] [address] Jun, Degenerative disc disease at L5-S1 level M51.36 [place] [address] [facility] [id number] [address] [place] [address] Jun, Bipolar I disorder with depr ession F31.9 and Chronic post-traumatic stress disorder (PTSD) F43.12 [place] [address] [facility] [id number] [address] [place] [phone] Jun, Degenerative disc disease at L5-S1 level M51.36 [place] [address] [place] [id number] [address] [place] [address] Jun, Degenerative disc disease at L5-S1 level M51.36 [place] [address] [facility] [id number] [address] [place] [address] May, [place] [address] [place] [id number] [address] [place] [address] May, Degenerative disc disease at L5-S1 level M51.36 [place] [address] [place] [id number] [address] [place] [address] Apr, Degenerative disc disease at L5-S1 level M51.36 [place] [address] [facility] [id number] [address] [place] [address] 18 Apr, 2018 Unsteady gait R26.81 ; Chron ic fatigue R53.82 ; SOB (shortness of breath) R06.02 and Moderate persistent asthma with exacerbation J45.41 [place] [address] [place] [id number] [address] [place] [address] Apr, Degenerative disc disease at L5-S1 level M51.36 [place] [address] [facility] [id number] [address] [place] [address] 05 Apr, 2018 Medicare annual wellness vis it, initial Z00.00 [place] [address] [facility] [id number] [address] [place] [address] 10 Mar, 2018 [place] [address] [place] [id number] [place] [address] 04 Mar, 2018 [place] [address] [place] [id number] [place] [address] 11 Feb, 2018 Medicare annual wellness vis it, initial Z00.00 ; Bipolar 1 disorder F31.9 ; Low back pain M54.5 and Other chronic pain G89.29 [place] [address] [place] [id number] [place] [address] Jan, [place] [address] [place] [id number] [place] [phone] 22 Dec, 2017 Frequent headaches R51 and D egenerative disc disease at L5-S1 level M51.36 [place] [address] [place] [id number] [address] [place] [phone] Nov, [facility] [address] [place] [id number] [place] [address] Nov, Chronic intractable headache , unspecified headache type R51 [facility] [address] [address] Nov, Chronic headaches R51 and BM I 45.0-49.9, adult Z68.42 [place] [address] [place] [id number] [address] [place] [address] Nov, [place] [address] [address] Nov, Obesity, morbid E66.01 ; Unc omplicated asthma, unspecified asthma severity J45.909 ; Anxiety F41.9 ; Pure hyperglyceridemia E78.1 and Family history of diabetes mellitus Z83.3 [place] [address] [place] [id number] [address] [place] [id number] 15 Oct, 2017 Bronchitis J40 [facility] [address] [place] [id number] [place] [address] 06 Oct, 2017 Chronic headaches R51 [place] [address] [place] [id number] [place] [address] Sep, [place] [address] [address] Sep, Chronic headaches R51 ; Othe r chronic pain G89.29 ; Anemia D64.9 and Obesity, morbid E66.01 [place] [address] [address] Aug, Acute suppurative otitis med ia of right ear without spontaneous rupture of tympanic membrane, recurrence not specified H66.001 [place] [address] [address] Aug, Other chronic pain G89.29 [place] [address] [place] [id number] [address] [place] [address] 18 Jul, 2017 Degenerative disc disease at L5-S1 level M51.36 [place] [address] [address] 07 Jul, 2017 Other chronic pain G89.29 an d Sprain of deltoid ligament of left ankle, subsequent encounter S93.422D [place] [id number] [place] [address] 05 Jul, 2017 Degenerative disc disease at L5-S1 level M51.36 [place] [address] [place] [id number] [address] [place] [address] Jun, [place] [address] [place] [id number] [address] [place] [address] Jun, Degenerative disc disease at L5-S1 level M51.36 [place] [address] [place] [id number] [address] [place] [address] Jun, [facility] [address] [place] [id number] [address] [place] [address] Jun, [facility] [address] [place] [id number] [address] [place] [address] Jun, [facility] [address] [place] [id number] [address] [place] [address] May, [facility] [address] [place] [id number] [address] [place] [address] May, [facility] [address] [place] [id number] [address] [place] [address] May, Rib pain on left side R07.81 [facility] [address] [place] [id number] [address] [place] [address] Apr, Morbid obesity due to excess calories E66.01 [facility] [address] [place] [id number] [address] [place] [address] Apr, Gastroenteritis K52.9 [place] [address] [address] Apr, Degenerative disc disease at L5-S1 level M51.36 [place] [address] [place] [id number] [place] [address] March, Degenerative disc disease at L5-S1 level M51.36 [place] [address] [address] March, Bipolar 1 disorder F31.9 ; A nemia D64.9 ; Hypopotassemia E87.6 ; Uncomplicated asthma, unspecified asthma severity J45.909 ; Anxiety F41.9 ; Chronic headaches R51 and Degenerative disc disease at L5-S1 level M51.36 [facility] [address] [place] [id number] [address] [place] [address] March, Degenerative disc disease at L5-S1 level M51.36 [facility] [address] [place] [id number] [address] [place] [address] March, Degenerative disc disease at L5-S1 level M51.36 [place] [address] [address] March, Uncomplicated asthma, unspec ified asthma severity J45.909 ; Hypoxemia R09.02 ; Chronic headaches R51 and Degenerative disc disease at L5-S1 level M51.36 [place] [address] [address] March, [place] [address] [address] Feb, Acquired equinus deformity o f left foot M21.6X2 [place] [address] [address] Feb, Degenerative disc disease at L5-S1 level M51.36 [place] [address] [address] Feb, Degenerative disc disease at L5-S1 level M51.36 [place] [address] [address] Jan, Degenerative disc disease at L5-S1 level M51.36 [place] [address] [place] [id number] [address] [place] [address] Jan, Degenerative disc disease at L5-S1 level M51.36 [place] [address] [place] [id number] [place] [address] Dec, Degenerative disc disease at L5-S1 level M51.36 [place] [address] [place] [id number] [address] [place] [address] Dec, Overactive bladder N32.81 an d Degenerative disc disease at L5-S1 level M51.36 [place] [address] [place] [id number] [address] [place] [address] Dec, Degenerative disc disease at L5-S1 level M51.36 [place] [address] [place] [id number] [address] [place] [address] Dec, Degenerative disc disease at L5-S1 level M51.36 [facility] [address] [id number] [address] [place] [address] Nov, [facility] [address] [facility] [id number] [address] [place] [address] Nov, Chronic headaches R51 [facility] [address] [id number] [address] [place] [address] Nov, Degenerative disc disease at L5-S1 level M51.36 [facility] [address] [id number] [address] [place] [address] Nov, Left upper quadrant pain R10 .12 [facility] [address] [facility] [id number] [address] [place] [address] Nov, Degenerative disc disease at L5-S1 level M51.36 [facility] [address] [id number] [address] [place] [address] Nov, Degenerative disc disease at L5-S1 level M51.36 [facility] [address] [facility] [id number] [address] [place] [address] Nov, Degenerative disc disease at L5-S1 level M51.36 [facility] [address] [facility] [id number] [address] [place] [address] Nov, Degenerative disc disease at L5-S1 level M51.36 [facility] [address] [id number] [address] [place] [address] Nov, Degenerative disc disease at L5-S1 level M51.36 [facility] [address] [facility] [id number] [address] [place] [phone] Oct, Degenerative disc disease at L5-S1 level M51.36 [facility] [address] [facility] [id number] [address] [place] [address] Sep, Degenerative disc disease at L5-S1 level M51.36 [facility] [address] [facility] [id number] [address] [place] [address] Sep, Degenerative disc disease at L5-S1 level M51.36 ; Bipolar 1 disorder F31.9 ; Chronic headaches R51 ; Hypopotassemia E87.6 ; Uncomplicated asthma, unspecified asthma severity J45.909 ; Anxiety F41.9 ; Overactive bladder N32.81 and Anemia D64.9 [facility] [address] [facility] [id number] [address] [place] [address] Sep, Degenerative disc disease at L5-S1 level M51.36 [facility] [address] [facility] [id number] [address] [place] [address] Aug, [facility] [address] [place] [id number] [place] [address] Aug, Degenerative disc disease at L5-S1 level M51.36 ; Chronic headaches R51 ; Bipolar 1 disorder F31.9 ; Overactive bladder N32.81 ; Anxiety F41.9 and Anemia D64.9 [facility] [address] [facility] [id number] [address] [place] [address] Aug, Degenerative disc disease at L5-S1 level M51.36 [facility] [address] [place] [id number] [address] [place] [address] 18 Aug, 2016 [facility] [address] [facility] [id number] [address] [place] [address] 14 Aug, 2016 [facility] [address] [facility] [id number] [address] [place] [phone] 10 Aug, 2016 Degenerative disc disease at L5-S1 level M51.36 [facility] [address] [facility] [id number] [address] [place] [address] 28 Jul, 2016 Degenerative disc disease at L5-S1 level M51.36 [facility] [address] [facility] [id number] [address] [place] [address] 27 Jul, 2016 [facility] [address] [facility] [id number] [address] [place] [address] Jul, [place] [address] [address] Jul, Degenerative disc disease at L5-S1 level M51.36 ; Pure hyperglyceridemia E78.1 ; Bipolar 1 disorder F31.9 ; Anemia D64.9 ; Overactive bladder N32.81 ; Hypopotassemia E87.6 ; Anxiety F41.9 ; Mild intermittent asthma without complication J45.20 and Chronic headaches R51 [place] [address] [address] 15 Jul, 2016 [place] [address] [address] Jul, [place] [address] [address] Jun, [place] [address] [address] Jun, Bipolar 1 disorder F31.9 ; A nxiety F41.9 ; Overactive bladder N32.81 ; Chronic headaches R51 ; Degenerative disc disease at L5-S1 level M51.36 ; Hypopotassemia E87.6 ; Anemia D64.9 and Morbid obesity due to excess calories E66.01 [place] [address] [address] Jun, [place] [address] [address] May, Overactive bladder N32.81 [place] [address] [address] May, Bipolar 1 disorder F31.9 ; A nemia D64.9 ; Overactive bladder N32.81 ; Chronic headaches R51 ; Hypopotassemia E87.6 ; Degenerative disc disease at L5-S1 level M51.36 and Uncomplicated asthma, unspecified asthma severity J45.[address] [address] May, [facility] [address] [place] [id number] [address] [place] [address] May, Chronic headaches R51 [place] [address] [place] [id number] [place] [address] Apr, Chronic headaches R51 [place] [address] [address] March, Chronic headaches R51 [place] [address] [address] March, [place] [address] [address] Feb, Chronic headaches R51 and De generative disc disease at L5-S1 level M51.36 [place] [address] [address] Feb, Hypopotassemia E87.6 ; Anemi a D64.9 ; Overactive bladder N32.81 ; Chronic headaches R51 and Degenerative disc disease at L5-S1 level M51.36 [place] [address] [address] Feb, Bipolar 1 disorder F31.9 ; A nemia D64.9 and Overactive bladder N32.81 [place] [address] [address] Feb, Scabies B86 ; Bipolar 1 diso rder F31.9 ; Anemia D64.9 ; Overactive bladder N32.81 ; Chronic headaches R51 ; Degenerative disc disease at L5-S1 level M51.36 and Wellness examination Z00.00 [place] [address] [address] Feb, [place] [address] [place] [id number] [place] [address] 10 Oct, 2008 IMMUNIZATIONS No Known Immunizations SOCIAL HISTORY Never Assessed REASON FOR VISIT PLAN OF CARE Activity Details Follow Up prn Reason:F/U PT VITAL SIGNS MEDICATIONS No Known Medications RESULTS No Results PROCEDURES Procedure Date Ordered Result Body Site THERAPEUTIC EXERCISES Dec 23, 2018 INSTRUCTIONS MEDICATIONS ADMINISTERED No Known Medications MEDICAL [...] interstem replaced 05/2016 Hospitalization History [facility]- Headache 12/18/2017
--- OUTSIDE RECORDS SUMMARY | 2019-11-27 06:41 | XMS REPORT ---
Author Author Tish MALCOLM Organization [facility] Address [address] [place] [address] Care Team Providers Care Radiation Officer Name Role Phone CHARIS MALCOLM Unavailable PROBLEMS Type Condition ICD9-CM Code KRO38-ED Code Onset Dates Condition S tatus SNOMED Code Problem Other chronic pain G89.29 Active 8 7722214 Problem Moderate persistent asthma with exacerbation J45.4 1 Active 080164315 Problem Obesity, morbid E66.01 Active 2381 80440 Problem Type 2 diabetes mellitus wit h hyperglycemia, without long-term current use of insulin E11.65 Active 59282306 Problem Pure hyperglyceridemia E78.1 Active 012112193 Problem Controlled type 2 diabetes m ellitus without complication, without long- term current use of insulin E11.9 Active 549762887 Problem Unsteady gait R26.81 Active 792158 08 Problem Chronic fatigue R53.82 Active 8422 9001 Problem Bipolar I disorder with depression F31.9 Active 70801608 Problem Chronic post-traumatic stress disorder (PTSD) F43. 12 Active 463229317 Problem Anemia D64.9 Active 608547917 Problem Hypopotassemia E87.6 Active 15941 004 Problem Overactive bladder N32.81 Active 2 29039372 Problem Chronic headaches R51 Active 43 4798860 Problem Anxiety F41.9 Active 75428879 Problem Acquired equinus deformity of left foot M21.6X2 Active 60410396 Problem Degenerative disc disease at L5-S1 level M51.36 Active 07073135 Problem Hypoxemia R09.02 Active 327544474 Problem Uncomplicated asthma, unspecified asthma severity J45.909 Active 458714198 Problem Morbid obesity due to excess calories E66.01 Active 599691087 ALLERGIES No Information ENCOUNTERS Encounter Location Date Diagnosis [facility] [address] [facility] [id number] [address] [place] [phone] Sep, [facility] [address] [facility] [id number] [address] [place] [phone] Sep, [facility] [address] [id number] [address] [place] [id number] Sep, [facility] [address] [id number] [address] [place] [id number] Sep, [facility] [address] [id number] [address] [place] [phone] Aug, Bipolar I disorder with depr ession F31.9 and Chronic post-traumatic stress disorder (PTSD) F43.12 [facility] [address] [id number] [address] [place] [phone] Aug, [facility] [address] [id number] [address] [place] [id number] Aug, [facility] [address] [id number] [address] [place] [id number] Aug, Acute pain of left wrist M25 .532 and Type 2 diabetes mellitus with hyperglycemia, without long-term current use of insulin E11.65 [facility] [address] [id number] [address] [place] [id number] Aug, [facility] [address] [id number] [address] [place] [phone] Aug, [facility] [address] [id number] [address] [place] [id number] Aug, Bipolar I disorder with depr ession F31.9 and Chronic post-traumatic stress disorder (PTSD) F43.12 [facility] [address] [id number] [address] [place] [id number] Aug, Degenerative disc disease at L5-S1 level M51.36 [facility] [address] [id number] [address] [place] [id number] Jul, Controlled type 2 diabetes m ellitus without complication, without long-term current use of insulin E11.9 [facility] [address] [id number] [address] [place] [phone] Jul, 2018 Frequent headaches R51 [place] [address] [place] [id number] [address] [place] [phone] Jul, [place] [address] [id number] 19 Jul, 2018 Bipolar I disorder with depr ession F31.9 and Chronic post-traumatic stress disorder (PTSD) F43.12 [place] [address] [id number] 10 Jul, 2018 Degenerative disc disease at L5-S1 level M51.36 [place] [address] [id number] 07 Jul, 2018 Other chronic pain G89.29 ; Dysuria R30.0 ; Degenerative disc disease at L5-S1 level M51.36 ; Uncomplicated asthma, unspecified asthma severity J45.909 ; Vagina, candidiasis B37.3 ; Glucose found in urine on examination R81 ; Family history of diabetes mellitus Z83.3 and Controlled type 2 diabetes mellitus without complication, without long-term current use of insulin E11.9 [place] [address] [address] [place] [id number] [address] [place] [id number] Jun, Degenerative disc disease at L5-S1 level M51.36 [place] [address] [place] [id number] [address] [place] [id number] Jun, [place] [address] [place] [id number] [address] [place] [id number] Jun, Medicare annual wellness vis it, initial Z00.00 [place] [address] [address] [place] [id number] [address] [place] [id number] Jun, Degenerative disc disease at L5-S1 level M51.36 [place] [address] [place] [id number] [address] [place] [id number] 13 Jun, 2018 Bipolar I disorder with depr ession F31.9 and Chronic post-traumatic stress disorder (PTSD) F43.12 [place] [address] [place] [id number] [address] [place] [id number] 13 Jun, 2018 Degenerative disc disease at L5-S1 level M51.36 [facility] [address] [facility] [id number] [address] [place] [id number] 07 Jun, 2018 Degenerative disc disease at L5-S1 level M51.36 [facility] [address] [place] [id number] [address] [place] [phone] May, [facility] [address] [facility] [id number] [address] [place] [id number] 16 May, 2018 Degenerative disc disease at L5-S1 level M51.36 [facility] [address] [place] [id number] [place] [phone] Apr, Degenerative disc disease at L5-S1 level M51.36 [place] [address] [place] [id number] [place] [id number] 18 Apr, 2018 Unsteady gait R26.81 ; Chron ic fatigue R53.82 ; SOB (shortness of breath) R06.02 and Moderate persistent asthma with exacerbation J45.41 [place] [address] [place] [id number] [address] [place] [phone] Apr, Degenerative disc disease at L5-S1 level M51.36 [facility] [address] [place] [id number] [address] [place] [id number] 05 Apr, 2018 Medicare annual wellness vis it, initial Z00.00 [facility] [address] [facility] [id number] [address] [place] [phone] March, [facility] [address] [facility] [id number] [address] [place] [phone] March, [facility] [address] [place] [id number] [address] [place] [id number] Feb, Medicare annual wellness vis it, initial Z00.00 ; Bipolar 1 disorder F31.9 ; Low back pain M54.5 and Other chronic pain G89.29 [facility] [address] [place] [id number] [address] [place] [phone] Jan, [place] [address] [place] [id number] [address] [place] [id number] Dec, Frequent headaches R51 and D egenerative disc disease at L5-S1 level M51.36 [place] [address] [place] [id number] [address] [place] [id number] Nov, [facility] [address] [id number] Nov, Chronic intractable headache , unspecified headache type R51 [facility] [address] [id number] Nov, Chronic headaches R51 and BM I 45.0-49.9, adult Z68.42 [place] [address] [id number] Nov, [place] [address] [id number] Nov, Obesity, morbid E66.01 ; Unc omplicated asthma, unspecified asthma severity J45.909 ; Anxiety F41.9 ; Pure hyperglyceridemia E78.1 and Family history of diabetes mellitus Z83.3 [place] [address] [address] Oct, Bronchitis J40 [place] [address] [id number] Oct, Chronic headaches R51 [place] [address] [address] [place] [id number] [address] [place] [id number] Sep, [place] [address] [id number] Sep, Chronic headaches R51 ; Othe r chronic pain G89.29 ; Anemia D64.9 and Obesity, morbid E66.01 [place] [address] [id number] Aug, Acute suppurative otitis med ia of right ear without spontaneous rupture of tympanic membrane, recurrence not specified H66.001 [facility] [address] [id number] [address] [place] [phone] Aug, Other chronic pain G89.29 [facility] [address] [id number] [address] [place] [id number] Jul, Degenerative disc disease at L5-S1 level M51.36 [facility] [address] [id number] [address] [place] [id number] 07 Jul, 2017 Other chronic pain G89.29 an d Sprain of deltoid ligament of left ankle, subsequent encounter S93.422D [facility] [address] [id number] [address] [place] [id number] Jul, Degenerative disc disease at L5-S1 level M51.36 [facility] [address] [id number] [address] [place] [id number] Jun, [facility] [address] [id number] [address] [place] [id number] Jun, Degenerative disc disease at L5-S1 level M51.36 [facility] [address] [id number] [address] [place] [phone] Jun, [facility] [address] [id number] [address] [place] [phone] Jun, [facility] [address] [id number] [address] [place] [id number] Jun, [facility] [address] [id number] [address] [place] [phone] May, [facility] [address] [id number] [address] [place] [id number] May, [facility] [address] [id number] [address] [place] [id number] May, Rib pain on left side R07.81 [facility] [address] [address] Apr, Morbid obesity due to excess calories E66.01 [place] [address] [id number] Apr, Gastroenteritis K52.9 [place] [address] [address] Apr, Degenerative disc disease at L5-S1 level M51.36 [place] [address] [address] March, Degenerative disc disease at L5-S1 level M51.36 [place] [address] [id number] March, Bipolar 1 disorder F31.9 ; A nemia D64.9 ; Hypopotassemia E87.6 ; Uncomplicated asthma, unspecified asthma severity J45.909 ; Anxiety F41.9 ; Chronic headaches R51 and Degenerative disc disease at L5-S1 level M51.36 [place] [address] [address] March, Degenerative disc disease at L5-S1 level M51.36 [place] [address] [id number] March, Degenerative disc disease at L5-S1 level M51.36 [place] [address] [address] March, Uncomplicated asthma, unspec ified asthma severity J45.909 ; Hypoxemia R09.02 ; Chronic headaches R51 and Degenerative disc disease at L5-S1 level M51.36 [place] [address] [address] March, [place] [address] [id number] Feb, Acquired equinus deformity o f left foot M21.6X2 [place] [address] [id number] Feb, Degenerative disc disease at L5-S1 level M51.36 [facility] [address] [facility] [id number] [address] [place] [id number] Feb, Degenerative disc disease at L5-S1 level M51.36 [facility] [address] [facility] [id number] [address] [place] [id number] Jan, Degenerative disc disease at L5-S1 level M51.36 [facility] [address] [facility] [id number] [address] [place] [id number] Jan, Degenerative disc disease at L5-S1 level M51.36 [facility] [address] [facility] [id number] [address] [place] [id number] Dec, Degenerative disc disease at L5-S1 level M51.36 [facility] [address] [facility] [id number] [address] [place] [phone] Dec, Overactive bladder N32.81 an d Degenerative disc disease at L5-S1 level M51.36 [facility] [address] [facility] [id number] [address] [place] [id number] Dec, Degenerative disc disease at L5-S1 level M51.36 [facility] [address] [facility] [id number] [address] [place] [id number] Dec, Degenerative disc disease at L5-S1 level M51.36 [facility] [address] [facility] [id number] [address] [place] [id number] Nov, [facility] [address] [facility] [id number] [address] [place] [phone] Nov, Chronic headaches R51 [facility] [address] [facility] [id number] [address] [place] [id number] Nov, Degenerative disc disease at L5-S1 level M51.36 [facility] [address] [facility] [id number] [address] [place] [id number] Nov, Left upper quadrant pain R10 .12 [facility] [address] [place] [id number] [address] [place] [id number] Nov, Degenerative disc disease at L5-S1 level M51.36 [facility] [address] [place] [id number] [place] [id number] Nov, Degenerative disc disease at L5-S1 level M51.36 [facility] [address] [place] [id number] [place] [id number] Nov, Degenerative disc disease at L5-S1 level M51.36 [facility] [address] [place] [id number] [address] [place] [id number] Nov, Degenerative disc disease at L5-S1 level M51.36 [facility] [address] [place] [id number] [place] [phone] Nov, Degenerative disc disease at L5-S1 level M51.36 [place] [address] [address] Oct, Degenerative disc disease at L5-S1 level M51.36 [facility] [address] [id number] Sep, Degenerative disc disease at L5-S1 level M51.36 [facility] [address] [id number] Sep, Degenerative disc disease at L5-S1 level M51.36 ; Bipolar 1 disorder F31.9 ; Chronic headaches R51 ; Hypopotassemia E87.6 ; Uncomplicated asthma, unspecified asthma severity J45.909 ; Anxiety F41.9 ; Overactive bladder N32.81 and Anemia D64.9 [place] [address] [address] Sep, Degenerative disc disease at L5-S1 level M51.36 [facility] [address] [address] Aug, [facility] [address] [address] Aug, Degenerative disc disease at L5-S1 level M51.36 ; Chronic headaches R51 ; Bipolar 1 disorder F31.9 ; Overactive bladder N32.81 ; Anxiety F41.9 and Anemia D64.9 [facility] [address] [id number] [address] [place] [id number] 24 Aug, 2016 Degenerative disc disease at L5-S1 level M51.36 [facility] [address] [id number] [address] [place] [id number] 18 Aug, 2016 [facility] [address] [facility] [id number] [address] [place] [id number] 14 Aug, 2016 [facility] [address] [facility] [id number] [address] [place] [id number] 10 Aug, 2016 Degenerative disc disease at L5-S1 level M51.36 [facility] [address] [facility] [id number] [address] [place] [id number] 28 Jul, 2016 Degenerative disc disease at L5-S1 level M51.36 [facility] [address] [facility] [id number] [address] [place] [id number] 27 Jul, 2016 [facility] [address] [facility] [id number] [address] [place] [phone] 23 Jul, 2016 [facility] [address] [facility] [id number] [address] [place] [id number] 22 Jul, 2016 Degenerative disc disease at L5-S1 level M51.36 ; Pure hyperglyceridemia E78.1 ; Bipolar 1 disorder F31.9 ; Anemia D64.9 ; Overactive bladder N32.81 ; Hypopotassemia E87.6 ; Anxiety F41.9 ; Mild intermittent asthma without complication J45.20 and Chronic headaches R51 [facility] [address] [facility] [id number] [address] [place] [id number] 15 Jul, 2016 [facility] [address] [facility] [id number] [address] [place] [id number] 07 Jul, 2016 [facility] [address] [facility] [id number] [address] [place] [phone] Jun, [facility] [address] [facility] [id number] [address] [place] [id number] Jun, Bipolar 1 disorder F31.9 ; A nxiety F41.9 ; Overactive bladder N32.81 ; Chronic headaches R51 ; Degenerative disc disease at L5-S1 level M51.36 ; Hypopotassemia E87.6 ; Anemia D64.9 and Morbid obesity due to excess calories E66.01 [facility] [address] [place] [id number] [address] [place] [phone] Jun, [facility] [address] [place] [id number] [place] [id number] May, Overactive bladder N32.81 [facility] [address] [place] [id number] [place] [id number] May, Bipolar 1 disorder F31.9 ; A nemia D64.9 ; Overactive bladder N32.81 ; Chronic headaches R51 ; Hypopotassemia E87.6 ; Degenerative disc disease at L5-S1 level M51.36 and Uncomplicated asthma, unspecified asthma severity J45.909 [facility] [address] [place] [id number] [address] [place] [phone] May, [facility] [address] [place] [id number] [address] [place] [phone] May, Chronic headaches R51 [facility] [address] [place] [id number] [address] [place] [phone] Apr, Chronic headaches R51 [facility] [address] [place] [id number] [address] [place] [phone] March, Chronic headaches R51 [facility] [address] [place] [id number] [place] [phone] March, [facility] [address] [place] [id number] [address] [place] [phone] Feb, Chronic headaches R51 and De generative disc disease at L5-S1 level M51.36 [place] [address] [facility] [id number] [address] [place] [id number] 19 Feb, 2016 Hypopotassemia E87.6 ; Anemi a D64.9 ; Overactive bladder N32.81 ; Chronic headaches R51 and Degenerative disc disease at L5-S1 level M51.36 [place] [address] [place] [id number] [address] [place] [phone] Feb, Bipolar 1 disorder F31.9 ; A nemia D64.9 and Overactive bladder N32.81 [place] [address] [place] [id number] [address] [place] [phone] Feb, Scabies B86 ; Bipolar 1 diso rder F31.9 ; Anemia D64.9 ; Overactive bladder N32.81 ; Chronic headaches R51 ; Degenerative disc disease at L5-S1 level M51.36 and Wellness examination Z00.00 [place] [address] [place] [id number] [address] [place] [id number] 17 Feb, 2009 [place] [address] [place] [id number] [address] [place] [phone] Oct, IMMUNIZATIONS No Known Immunizations SOCIAL HISTORY Never Assessed REASON FOR VISIT Medication refill request PLAN OF CARE VITAL SIGNS MEDICATIONS Medication Instructions Dosage Frequency Start Date End Date Duration S tatus Topamax 100 mg Orally Twice a day 2 tablets 12h Feb, 30 days Active RESULTS No Results PROCEDURES [...] interstem replaced 05/2016 Hospitalization History [facility]- Headache 12/18/2017
--- OUTSIDE RECORDS SUMMARY | 2019-11-27 06:41 | XMS REPORT ---
Author Author Tish NIEVES [facility] Address [address] [place] [address] Care Team Providers Care Operations Recruiter Name Role Phone EZEQUIEL NIELS Unavailable PROBLEMS Type Condition ICD9-CM Code DAJ88-NE Code Onset Dates Condition S tatus SNOMED Code Problem Other chronic pain G89.29 Active 8 7873874 Problem Moderate persistent asthma with exacerbation J45.4 1 Active 088675075 Problem Obesity, morbid E66.01 Active 2381 58420 Problem Type 2 diabetes mellitus wit h hyperglycemia, without long-term current use of insulin E11.65 Active 07931256 Problem Pure hyperglyceridemia E78.1 Active 090085401 Problem Controlled type 2 diabetes m ellitus without complication, without long- term current use of insulin E11.9 Active 527222320 Problem Unsteady gait R26.81 Active 290665 08 Problem Chronic fatigue R53.82 Active 8422 9001 Problem Bipolar I disorder with depression F31.9 Active 33186973 Problem Chronic post-traumatic stress disorder (PTSD) F43. 12 Active 114465848 Problem Anemia D64.9 Active 185418385 Problem Hypopotassemia E87.6 Active 93942 004 Problem Overactive bladder N32.81 Active 2 30485027 Problem Chronic headaches R51 Active 43 0788224 Problem Anxiety F41.9 Active 34428344 Problem Acquired equinus deformity of left foot M21.6X2 Active 97864654 Problem Degenerative disc disease at L5-S1 level M51.36 Active 68396390 Problem Hypoxemia R09.02 Active 332495537 Problem Uncomplicated asthma, unspecified asthma severity J45.909 Active 069785726 Problem Morbid obesity due to excess calories E66.01 Active 351272137 ALLERGIES No Information ENCOUNTERS Encounter Location Date Diagnosis [facility] [address] [facility] [id number] [address] [place] [id number] Sep, [facility] [address] [id number] [address] [place] [id number] Sep, Degenerative disc disease at L5-S1 level M51.36 [facility] [address] [id number] [address] [place] [address] Sep, Controlled type 2 diabetes josh ferrara without complication, without long-term current use of insulin E11.9 [facility] [address] [id number] [address] [place] [id number] Sep, [facility] [address] [id number] [address] [place] [address] Sep, [facility] [address] [id number] [address] [place] [phone] Aug, Bipolar I disorder with depr ession F31.9 and Chronic post-traumatic stress disorder (PTSD) F43.12 [facility] [address] [id number] [address] [place] [id number] Aug, [facility] [address] [id number] [address] [place] [address] Aug, [facility] [address] [id number] [address] [place] [address] Aug, Acute pain of left wrist M25 .532 and Type 2 diabetes mellitus with hyperglycemia, without long-term current use of insulin E11.65 [facility] [address] [id number] [address] [place] [id number] Aug, [facility] [address] [id number] [address] [place] [phone] Aug, [facility] [address] [id number] [address] [place] [id number] Aug, Bipolar I disorder with depr ession F31.9 and Chronic post-traumatic stress disorder (PTSD) F43.12 [facility] [address] [id number] [address] [place] [id number] Aug, Degenerative disc disease at L5-S1 level M51.36 [facility] [address] [place] [id number] [address] [place] [address] Jul, Controlled type 2 diabetes m ellitus without complication, without long-term current use of insulin E11.9 [place] [address] [address] Jul, Frequent headaches R51 [place] [address] [address] Jul, [place] [address] [address] 19 Jul, 2018 Bipolar I disorder with depr ession F31.9 and Chronic post-traumatic stress disorder (PTSD) F43.12 [place] [address] [address] 10 Jul, 2018 Degenerative disc disease at L5-S1 level M51.36 [place] [address] [address] 07 Jul, 2018 Other chronic pain G89.29 ; Dysuria R30.0 ; Degenerative disc disease at L5-S1 level M51.36 ; Uncomplicated asthma, unspecified asthma severity J45.909 ; Vagina, candidiasis B37.3 ; Glucose found in urine on examination R81 ; Family history of diabetes mellitus Z83.3 and Controlled type 2 diabetes mellitus without complication, without long-term current use of insulin E11.9 [place] [id number] [place] [address] Jun, Degenerative disc disease at L5-S1 level M51.36 [place] [address] [place] [id number] [address] [place] [address] Jun, [place] [address] [address] Jun, Medicare annual wellness vis it, initial Z00.00 [place] [address] [place] [id number] [address] [place] [id number] Jun, Degenerative disc disease at L5-S1 level M51.36 [place] [address] [place] [id number] [address] [place] [id number] 13 Jun, 2018 Bipolar I disorder with depr ession F31.9 and Chronic post-traumatic stress disorder (PTSD) F43.12 [place] [address] [facility] [id number] [address] [place] [id number] 13 Jun, 2018 Degenerative disc disease at L5-S1 level M51.36 [place] [address] [place] [id number] [address] [place] [id number] Jun, Degenerative disc disease at L5-S1 level M51.36 [place] [address] [place] [id number] [address] [place] [address] May, [place] [address] [place] [id number] [place] [address] 16 May, 2018 Degenerative disc disease at L5-S1 level M51.36 [place] [address] [place] [id number] [address] [place] [address] Apr, Degenerative disc disease at L5-S1 level M51.36 [place] [address] [place] [id number] [address] [place] [id number] 18 Apr, 2018 Unsteady gait R26.81 ; Chron ic fatigue R53.82 ; SOB (shortness of breath) R06.02 and Moderate persistent asthma with exacerbation J45.41 [place] [address] [place] [id number] [address] [address] Apr, Degenerative disc disease at L5-S1 level M51.36 [place] [address] [place] [id number] [address] [place] [id number] 05 Apr, 2018 Medicare annual wellness vis it, initial Z00.00 [place] [address] [place] [id number] [address] [place] [address] March, [place] [address] [place] [id number] [address] [place] [address] March, [place] [address] [place] [id number] [address] [place] [address] Feb, Medicare annual wellness vis it, initial Z00.00 ; Bipolar 1 disorder F31.9 ; Low back pain M54.5 and Other chronic pain G89.29 [facility] [address] [place] [id number] [address] [place] [id number] Jan, [facility] [address] [facility] [id number] [address] [place] [id number] Dec, Frequent headaches R51 and D egenerative disc disease at L5-S1 level M51.36 [facility] [address] [place] [id number] [place] [phone] Nov, [facility] [address] [place] [id number] [place] [address] Nov, Chronic intractable headache , unspecified headache type R51 [facility] [address] [place] [id number] [place] [address] Nov, Chronic headaches R51 and BM I 45.0-49.9, adult Z68.42 [place] [address] [address] Nov, [place] [address] [address] Nov, Obesity, morbid E66.01 ; Unc omplicated asthma, unspecified asthma severity J45.909 ; Anxiety F41.9 ; Pure hyperglyceridemia E78.1 and Family history of diabetes mellitus Z83.3 [place] [address] [place] [id number] [address] [place] [address] Oct, Bronchitis J40 [place] [address] [place] [id number] [place] [address] Oct, Chronic headaches R51 [place] [address] [place] [id number] [address] [place] [phone] Sep, [facility] [address] [place] [id number] [place] [address] Sep, Chronic headaches R51 ; Othe r chronic pain G89.29 ; Anemia D64.9 and Obesity, morbid E66.01 [facility] [address] [id number] [address] [place] [address] Aug, Acute suppurative otitis med ia of right ear without spontaneous rupture of tympanic membrane, recurrence not specified H66.001 [facility] [address] [id number] [address] [place] [address] Aug, Other chronic pain G89.29 [facility] [address] [id number] [address] [place] [id number] Jul, Degenerative disc disease at L5-S1 level M51.36 [facility] [address] [id number] [address] [place] [address] Jul, Other chronic pain G89.29 an d Sprain of deltoid ligament of left ankle, subsequent encounter S93.422D [facility] [address] [id number] [address] [place] [id number] Jul, Degenerative disc disease at L5-S1 level M51.36 [facility] [address] [id number] [address] [place] [id number] Jun, [facility] [address] [id number] [address] [place] [id number] Jun, Degenerative disc disease at L5-S1 level M51.36 [facility] [address] [id number] [address] [place] [id number] Jun, [facility] [address] [id number] [address] [place] [id number] Jun, [facility] [address] [id number] [address] [place] [id number] Jun, [facility] [address] [id number] [address] [place] [id number] May, [facility] [address] [id number] [address] [place] [address] May, [place] [address] [place] [id number] [address] [place] [address] May, Rib pain on left side R07.81 [place] [address] [place] [id number] [place] [address] Apr, Morbid obesity due to excess calories E66.01 [place] [address] [address] Apr, Gastroenteritis K52.9 [place] [address] [address] Apr, Degenerative disc disease at L5-S1 level M51.36 [place] [address] [address] March, Degenerative disc disease at L5-S1 level M51.36 [place] [address] [address] March, Bipolar 1 disorder F31.9 ; A nemia D64.9 ; Hypopotassemia E87.6 ; Uncomplicated asthma, unspecified asthma severity J45.909 ; Anxiety F41.9 ; Chronic headaches R51 and Degenerative disc disease at L5-S1 level M51.36 [place] [address] [address] March, Degenerative disc disease at L5-S1 level M51.36 [place] [address] [place] [id number] [place] [address] March, Degenerative disc disease at L5-S1 level M51.36 [place] [address] [address] March, Uncomplicated asthma, unspec ified asthma severity J45.909 ; Hypoxemia R09.02 ; Chronic headaches R51 and Degenerative disc disease at L5-S1 level M51.36 [place] [address] [place] [id number] [place] [address] March, [facility] [address] [place] [id number] [address] [place] [id number] Feb, Acquired equinus deformity o f left foot M21.6X2 [facility] [address] [facility] [id number] [address] [place] [address] Feb, Degenerative disc disease at L5-S1 level M51.36 [facility] [address] [place] [id number] [address] [place] [id number] Feb, Degenerative disc disease at L5-S1 level M51.36 [facility] [address] [place] [id number] [address] [place] [address] Jan, Degenerative disc disease at L5-S1 level M51.36 [facility] [address] [place] [id number] [place] [address] Jan, Degenerative disc disease at L5-S1 level M51.36 [facility] [address] [place] [id number] [address] [place] [id number] Dec, Degenerative disc disease at L5-S1 level M51.36 [facility] [address] [address] Dec, Overactive bladder N32.81 an d Degenerative disc disease at L5-S1 level M51.36 [facility] [address] [place] [id number] [address] [place] [address] Dec, Degenerative disc disease at L5-S1 level M51.36 [facility] [address] [facility] [id number] [address] [place] [id number] Dec, Degenerative disc disease at L5-S1 level M51.36 [facility] [address] [place] [id number] [address] [place] [address] Nov, [facility] [address] [facility] [id number] [address] [place] [address] Nov, Chronic headaches R51 [facility] [address] [place] [id number] [address] [place] [address] Nov, Degenerative disc disease at L5-S1 level M51.36 [facility] [address] [address] Nov, Left upper quadrant pain R10 .12 [facility] [address] [place] [id number] [place] [address] Nov, Degenerative disc disease at L5-S1 level M51.36 [facility] [address] [place] [id number] [place] [address] Nov, Degenerative disc disease at L5-S1 level M51.36 [place] [address] [address] Nov, Degenerative disc disease at L5-S1 level M51.36 [place] [address] [address] Nov, Degenerative disc disease at L5-S1 level M51.36 [place] [address] [address] Nov, Degenerative disc disease at L5-S1 level M51.36 [place] [address] [address] Oct, Degenerative disc disease at L5-S1 level M51.36 [place] [address] [address] Sep, Degenerative disc disease at L5-S1 level M51.36 [place] [address] [place] [id number] [place] [address] Sep, Degenerative disc disease at L5-S1 level M51.36 ; Bipolar 1 disorder F31.9 ; Chronic headaches R51 ; Hypopotassemia E87.6 ; Uncomplicated asthma, unspecified asthma severity J45.909 ; Anxiety F41.9 ; Overactive bladder N32.81 and Anemia D64.9 [place] [address] [place] [id number] [place] [address] Sep, Degenerative disc disease at L5-S1 level M51.36 [facility] [address] [facility] [id number] [place] [address] Aug, [facility] [address] [place] [id number] [place] [address] Aug, Degenerative disc disease at L5-S1 level M51.36 ; Chronic headaches R51 ; Bipolar 1 disorder F31.9 ; Overactive bladder N32.81 ; Anxiety F41.9 and Anemia D64.9 [facility] [address] [facility] [id number] [place] [address] Aug, Degenerative disc disease at L5-S1 level M51.36 [facility] [address] [place] [id number] [place] [address] 18 Aug, 2016 [facility] [address] [place] [id number] [place] [address] 14 Aug, 2016 [facility] [address] [place] [id number] [place] [address] Aug, Degenerative disc disease at L5-S1 level M51.36 [facility] [address] [place] [id number] [place] [address] 28 Jul, 2016 Degenerative disc disease at L5-S1 level M51.36 [facility] [address] [address] 27 Jul, 2016 [facility] [address] [place] [id number] [place] [address] 23 Jul, 2016 [facility] [address] [facility] [id number] [address] [place] [address] 22 Jul, 2016 Degenerative disc disease at L5-S1 level M51.36 ; Pure hyperglyceridemia E78.1 ; Bipolar 1 disorder F31.9 ; Anemia D64.9 ; Overactive bladder N32.81 ; Hypopotassemia E87.6 ; Anxiety F41.9 ; Mild intermittent asthma without complication J45.20 and Chronic headaches R51 [facility] [address] [id number] [address] [place] [address] 15 Jul, 2016 [facility] [address] [facility] [id number] [address] [place] [id number] Jul, [facility] [address] [facility] [id number] [address] [place] [id number] Jun, [facility] [address] [facility] [id number] [address] [place] [address] Jun, Bipolar 1 disorder F31.9 ; A nxiety F41.9 ; Overactive bladder N32.81 ; Chronic headaches R51 ; Degenerative disc disease at L5-S1 level M51.36 ; Hypopotassemia E87.6 ; Anemia D64.9 and Morbid obesity due to excess calories E66.01 [facility] [address] [facility] [id number] [address] [place] [address] Jun, [facility] [address] [facility] [id number] [address] [place] [address] May, Overactive bladder N32.81 [facility] [address] [facility] [id number] [address] [place] [address] May, Bipolar 1 disorder F31.9 ; A nemia D64.9 ; Overactive bladder N32.81 ; Chronic headaches R51 ; Hypopotassemia E87.6 ; Degenerative disc disease at L5-S1 level M51.36 and Uncomplicated asthma, unspecified asthma severity J45.909 [facility] [address] [facility] [id number] [address] [address] May, [facility] [address] [facility] [id number] [address] [place] [address] May, Chronic headaches R51 [facility] [address] [facility] [id number] [address] [place] [address] Apr, Chronic headaches R51 [facility] [address] [facility] [id number] [address] [place] [address] March, Chronic headaches R51 [facility] [address] [place] [id number] [place] [address] March, [place] [address] [address] Feb, Chronic headaches R51 and De generative disc disease at L5-S1 level M51.36 [place] [address] [address] Feb, Hypopotassemia E87.6 ; Anemi a D64.9 ; Overactive bladder N32.81 ; Chronic headaches R51 and Degenerative disc disease at L5-S1 level M51.36 [place] [address] [address] Feb, Bipolar 1 disorder F31.9 ; A nemia D64.9 and Overactive bladder N32.[address] [address] Feb, Scabies B86 ; Bipolar 1 diso rder F31.9 ; Anemia D64.9 ; Overactive bladder N32.81 ; Chronic headaches R51 ; Degenerative disc disease at L5-S1 level M51.36 and Wellness examination Z00.00 [place] [address] [address] Feb, [place] [address] [address] Oct, IMMUNIZATIONS No Known Immunizations SOCIAL HISTORY Never Assessed REASON FOR VISIT low back pain PLAN OF CARE Activity Details Follow Up 3 Weeks Reason:F/U PT VITAL SIGNS MEDICATIONS Unknown Medications RESULTS No Results PROCEDURES Procedure Date Ordered Result Body Site THERAPEUTIC EXERCISES Oct 07, 2018 INSTRUCTIONS MEDICATIONS ADMINISTERED No Known Medications [...] interstem replaced 05/2016 Hospitalization History [facility]- Headache 12/18/2017
--- OUTSIDE RECORDS SUMMARY | 2019-11-27 06:41 | XMS REPORT ---
Author Author Tish MALCOLM Organization [facility] Address [address] [place] [address] Care Team Providers Care Medical Radiation Therapist Name Role Phone CHARIS MALCOLM Unavailable PROBLEMS Type Condition ICD9-CM Code RHK27-VQ Code Onset Dates Condition S tatus SNOMED Code Problem Other chronic pain G89.29 Active 8 7088309 Problem Moderate persistent asthma with exacerbation J45.4 1 Active 514075181 Problem Obesity, morbid E66.01 Active 2381 71102 Problem Type 2 diabetes mellitus wit h hyperglycemia, without long-term current use of insulin E11.65 Active 61557202 Problem Pure hyperglyceridemia E78.1 Active 571867638 Problem Controlled type 2 diabetes m ellitus without complication, without long- term current use of insulin E11.9 Active 950126486 Problem Unsteady gait R26.81 Active 458596 08 Problem Chronic fatigue R53.82 Active 8422 9001 Problem Bipolar I disorder with depression F31.9 Active 38210594 Problem Chronic post-traumatic stress disorder (PTSD) F43. 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 Active 65450221 Problem Degenerative disc disease at L5-S1 level M51.36 Active 05615285 Problem Hypoxemia R09.02 Active 960909378 Problem Uncomplicated asthma, unspecified asthma severity J45.909 Active 648064514 Problem Morbid obesity due to excess calories E66.01 Active 750254248 ALLERGIES Substance Reaction Event Type Date Status Sulfamethoxazole-Trimethoprim Unknown Drug Allergy Sep, 8 Active Penicillin V Potassium Unknown Drug Allergy Sep, Activ e Morphine Sulfate anaphylaxis Drug Allergy Sep, Active Mobic fall asleep and sleep walk Drug Allergy Sep, A ctive Codeine Sulfate Unknown Drug Allergy Sep, Active Amoxicillin rash Drug Allergy Sep, Active paper tape rash Non Drug Allergy Sep, Active pink dye, purple dye sick to stomach Non Drug Allergy Sep, Active ENCOUNTERS Encounter Location Date Diagnosis [place] [id number] [facility] [id number] [address] [place] [address] Sep, [place] [address] [address] [facility] [id number] [address] [place] [address] Sep, Degenerative disc disease at L5-S1 level M51.36 [place] [address] [address] [facility] [id number] [address] [place] [address] Sep, Controlled type 2 diabetes m ellitus without complication, without long-term current use of insulin E11.9 [place] [address] [address] [facility] [id number] [address] [place] [address] Sep, [place] [address] [address] [facility] [id number] [address] [place] [address] Sep, [place] [address] [address] [facility] [id number] [address] [place] [address] Aug, Bipolar I disorder with depr ession F31.9 and Chronic post-traumatic stress disorder (PTSD) F43.12 [facility] [address] [facility] [id number] [address] [place] [address] Aug, [place] [address] [address] [facility] [id number] [address] [place] [address] Aug, [place] [address] [address] [facility] [id number] [address] [place] [address] Aug, Acute pain of left wrist M25 .532 and Type 2 diabetes mellitus with hyperglycemia, without long-term current use of insulin E11.65 [facility] [address] [facility] [id number] [address] [place] [address] Aug, [facility] [address] [facility] [id number] [address] [place] [address] Aug, [place] [address] [address] [place] [id number] [address] [place] [address] Aug, Bipolar I disorder with depr ession F31.9 and Chronic post-traumatic stress disorder (PTSD) F43.12 [place] [address] [address] [place] [id number] [address] [place] [address] Aug, Degenerative disc disease at L5-S1 level M51.36 [place] [address] [address] [place] [id number] [place] [address] Jul, Controlled type 2 diabetes josh ferrara without complication, without long-term current use of insulin E11.9 [place] [address] [facility] [id number] [place] [address] Jul, Frequent headaches R51 [place] [address] [address] [place] [id number] [place] [address] Jul, [place] [address] [address] Jul, Bipolar I disorder with depr ession F31.9 and Chronic post-traumatic stress disorder (PTSD) F43.12 [place] [address] [address] Jul, Degenerative disc disease at L5-S1 level M51.36 [place] [address] [address] 07 Jul, 2018 Other chronic pain G89.29 ; Dysuria R30.0 ; Degenerative disc disease at L5-S1 level M51.36 ; Uncomplicated asthma, unspecified asthma severity J45.909 ; Vagina, candidiasis B37.3 ; Glucose found in urine on examination R81 ; Family history of diabetes mellitus Z83.3 and Controlled type 2 diabetes mellitus without complication, without long-term current use of insulin E11.9 [place] [address] [address] [place] [id number] [address] [place] [address] Jun, Degenerative disc disease at L5-S1 level M51.36 [place] [address] [place] [id number] [place] [address] Jun, [place] [address] [address] [facility] [id number] [address] [place] [address] Jun, Medicare annual wellness vis it, initial Z00.00 [place] [address] [address] [facility] [id number] [address] [place] [address] Jun, Degenerative disc disease at L5-S1 level M51.36 [place] [address] [address] [place] [id number] [address] [place] [address] Jun, Bipolar I disorder with depr ession F31.9 and Chronic post-traumatic stress disorder (PTSD) F43.12 [place] [address] [address] [place] [id number] [place] [address] Jun, Degenerative disc disease at L5-S1 level M51.36 [place] [address] [place] [id number] [place] [address] Jun, Degenerative disc disease at L5-S1 level M51.36 [place] [address] [address] [facility] [id number] [address] [place] [address] May, [place] [address] [place] [id number] [place] [address] May, Degenerative disc disease at L5-S1 level M51.36 [place] [address] [address] [place] [id number] [address] [place] [address] Apr, Degenerative disc disease at L5-S1 level M51.36 [place] [address] [address] [place] [id number] [address] [place] [address] 18 Apr, 2018 Unsteady gait R26.81 ; Chron ic fatigue R53.82 ; SOB (shortness of breath) R06.02 and Moderate persistent asthma with exacerbation J45.41 [place] [address] [address] [place] [id number] [address] [place] [address] Apr, Degenerative disc disease at L5-S1 level M51.36 [place] [address] [address] [place] [id number] [address] [place] [address] 05 Apr, 2018 Medicare annual wellness vis it, initial Z00.00 [facility] [address] [facility] [id number] [address] [place] [address] 10 Mar, 2018 [facility] [address] [facility] [id number] [address] [place] [address] 04 Mar, 2018 [facility] [address] [facility] [id number] [address] [place] [address] 11 Feb, 2018 Medicare annual wellness vis it, initial Z00.00 ; Bipolar 1 disorder F31.9 ; Low back pain M54.5 and Other chronic pain G89.29 [place] [address] [place] [id number] [place] [address] Jan, [place] [address] [place] [id number] [place] [address] 22 Dec, 2017 Frequent headaches R51 and D egenerative disc disease at L5-S1 level M51.36 [place] [address] [place] [id number] [address] [place] [address] Nov, [facility] [address] [place] [id number] [place] [address] Nov, Chronic intractable headache , unspecified headache type R51 [facility] [address] [place] [id number] [place] [address] Nov, Chronic headaches R51 and BM I 45.0-49.9, adult Z68.42 [place] [address] [address] [place] [id number] [address] [place] [address] Nov, [place] [address] [place] [id number] [place] [address] Nov, Obesity, morbid E66.01 ; Unc omplicated asthma, unspecified asthma severity J45.909 ; Anxiety F41.9 ; Pure hyperglyceridemia E78.1 and Family history of diabetes mellitus Z83.3 [place] [address] [place] [id number] [place] [address] 15 Oct, 2017 Bronchitis J40 [facility] [address] [facility] [id number] [address] [place] [address] Oct, Chronic headaches R51 [facility] [address] [facility] [id number] [address] [place] [address] Sep, [facility] [address] [facility] [id number] [address] [place] [address] Sep, Chronic headaches R51 ; Othe r chronic pain G89.29 ; Anemia D64.9 and Obesity, morbid E66.01 [facility] [address] [facility] [id number] [address] [place] [address] Aug, Acute suppurative otitis med ia of right ear without spontaneous rupture of tympanic membrane, recurrence not specified H66.001 [place] [address] [place] [id number] [address] [place] [address] Aug, Other chronic pain G89.29 [place] [address] [place] [id number] [address] [place] [address] 18 Jul, 2017 Degenerative disc disease at L5-S1 level M51.36 [place] [address] [place] [id number] [address] [place] [address] 07 Jul, 2017 Other chronic pain G89.29 an d Sprain of deltoid ligament of left ankle, subsequent encounter S93.422D [place] [address] [place] [id number] [address] [place] [address] 05 Jul, 2017 Degenerative disc disease at L5-S1 level M51.36 [facility] [address] [facility] [id number] [address] [place] [address] Jun, [facility] [address] [place] [id number] [address] [place] [address] Jun, Degenerative disc disease at L5-S1 level M51.36 [facility] [address] [place] [id number] [address] [place] [address] Jun, [place] [address] [place] [id number] [address] [place] [address] Jun, [facility] [address] [facility] [id number] [address] [place] [address] Jun, [facility] [address] [facility] [id number] [address] [place] [address] May, [facility] [address] [place] [id number] [address] [place] [address] May, [facility] [address] [place] [id number] [address] [place] [address] May, Rib pain on left side R07.81 [place] [address] [place] [id number] [place] [address] Apr, Morbid obesity due to excess calories E66.01 [place] [address] [place] [id number] [address] [place] [address] Apr, Gastroenteritis K52.9 [place] [address] [address] Apr, Degenerative disc disease at L5-S1 level M51.36 [place] [address] [address] [place] [id number] [address] [place] [address] March, Degenerative disc disease at L5-S1 level M51.36 [place] [address] [place] [id number] [address] [place] [address] March, Bipolar 1 disorder F31.9 ; A nemia D64.9 ; Hypopotassemia E87.6 ; Uncomplicated asthma, unspecified asthma severity J45.909 ; Anxiety F41.9 ; Chronic headaches R51 and Degenerative disc disease at L5-S1 level M51.36 [place] [address] [place] [id number] [address] [place] [address] March, Degenerative disc disease at L5-S1 level M51.36 [place] [address] [place] [id number] [address] [place] [address] March, Degenerative disc disease at L5-S1 level M51.36 [place] [id number] [address] March, Uncomplicated asthma, unspec ified asthma severity J45.909 ; Hypoxemia R09.02 ; Chronic headaches R51 and Degenerative disc disease at L5-S1 level M51.36 [place] [address] [address] March, [place] [address] [address] Feb, Acquired equinus deformity o f left foot M21.6X2 [place] [address] [address] Feb, Degenerative disc disease at L5-S1 level M51.36 [place] [address] [address] Feb, Degenerative disc disease at L5-S1 level M51.36 [place] [address] [address] Jan, Degenerative disc disease at L5-S1 level M51.36 [place] [address] [address] Jan, Degenerative disc disease at L5-S1 level M51.36 [place] [address] [address] Dec, Degenerative disc disease at L5-S1 level M51.36 [place] [address] [address] Dec, Overactive bladder N32.81 an d Degenerative disc disease at L5-S1 level M51.36 [place] [address] [address] Dec, Degenerative disc disease at L5-S1 level M51.36 [place] [address] [address] Dec, Degenerative disc disease at L5-S1 level M51.36 [facility] [address] [id number] [address] [place] [address] Nov, [facility] [address] [facility] [id number] [address] [place] [address] Nov, Chronic headaches R51 [facility] [address] [id number] [address] [place] [address] Nov, Degenerative disc disease at L5-S1 level M51.36 [facility] [address] [id number] [address] [place] [address] Nov, Left upper quadrant pain R10 .12 [facility] [address] [id number] [address] [place] [address] Nov, Degenerative disc disease at L5-S1 level M51.36 [facility] [address] [id number] [address] [place] [address] Nov, Degenerative disc disease at L5-S1 level M51.36 [facility] [address] [id number] [address] [place] [address] Nov, Degenerative disc disease at L5-S1 level M51.36 [facility] [address] [id number] [address] [place] [address] Nov, Degenerative disc disease at L5-S1 level M51.36 [facility] [address] [facility] [id number] [address] [place] [address] Nov, Degenerative disc disease at L5-S1 level M51.36 [facility] [address] [id number] [address] [place] [address] Oct, Degenerative disc disease at L5-S1 level M51.36 [facility] [address] [id number] [address] [place] [address] Sep, Degenerative disc disease at L5-S1 level M51.36 [facility] [address] [id number] [address] [place] [address] Sep, Degenerative disc disease at L5-S1 level M51.36 ; Bipolar 1 disorder F31.9 ; Chronic headaches R51 ; Hypopotassemia E87.6 ; Uncomplicated asthma, unspecified asthma severity J45.909 ; Anxiety F41.9 ; Overactive bladder N32.81 and Anemia D64.9 [facility] [address] [id number] [address] [place] [address] Sep, Degenerative disc disease at L5-S1 level M51.36 [facility] [address] [id number] [address] [place] [address] Aug, [facility] [address] [id number] [address] [place] [address] Aug, Degenerative disc disease at L5-S1 level M51.36 ; Chronic headaches R51 ; Bipolar 1 disorder F31.9 ; Overactive bladder N32.81 ; Anxiety F41.9 and Anemia D64.9 [facility] [address] [id number] [address] [place] [address] Aug, Degenerative disc disease at L5-S1 level M51.36 [facility] [address] [id number] [address] [place] [address] Aug, [facility] [address] [id number] [address] [place] [address] 14 Aug, 2016 [facility] [address] [id number] [address] [place] [address] Aug, Degenerative disc disease at L5-S1 level M51.36 [facility] [address] [id number] [address] [place] [address] 28 Jul, 2016 Degenerative disc disease at L5-S1 level M51.36 [facility] [address] [id number] [address] [place] [address] 27 Jul, 2016 [facility] [address] [id number] [address] [place] [address] Jul, [facility] [address] [address] Jul, Degenerative disc disease at L5-S1 level M51.36 ; Pure hyperglyceridemia E78.1 ; Bipolar 1 disorder F31.9 ; Anemia D64.9 ; Overactive bladder N32.81 ; Hypopotassemia E87.6 ; Anxiety F41.9 ; Mild intermittent asthma without complication J45.20 and Chronic headaches R51 [place] [address] [address] 15 Jul, 2016 [place] [address] [address] 07 Jul, 2016 [place] [address] [address] Jun, [place] [address] [address] Jun, Bipolar 1 disorder F31.9 ; A nxiety F41.9 ; Overactive bladder N32.81 ; Chronic headaches R51 ; Degenerative disc disease at L5-S1 level M51.36 ; Hypopotassemia E87.6 ; Anemia D64.9 and Morbid obesity due to excess calories E66.01 [place] [address] [address] Jun, [place] [address] [address] May, Overactive bladder N32.81 [place] [address] [address] May, Bipolar 1 disorder F31.9 ; A nemia D64.9 ; Overactive bladder N32.81 ; Chronic headaches R51 ; Hypopotassemia E87.6 ; Degenerative disc disease at L5-S1 level M51.36 and Uncomplicated asthma, unspecified asthma severity J45.909 [place] [address] [address] May, [place] [address] [place] [address] May, Chronic headaches R51 [place] [address] [id number] Apr, Chronic headaches R51 [facility] [address] [address] March, Chronic headaches R51 [place] [address] [address] March, [place] [address] [address] Feb, Chronic headaches R51 and De generative disc disease at L5-S1 level M51.36 [place] [address] [address] Feb, Hypopotassemia E87.6 ; Anemi a D64.9 ; Overactive bladder N32.81 ; Chronic headaches R51 and Degenerative disc disease at L5-S1 level M51.36 [place] [address] [address] Feb, Bipolar 1 disorder F31.9 ; A nemia D64.9 and Overactive bladder N32.81 [place] [address] [address] Feb, Scabies B86 ; Bipolar 1 diso rder F31.9 ; Anemia D64.9 ; Overactive bladder N32.81 ; Chronic headaches R51 ; Degenerative disc disease at L5-S1 level M51.36 and Wellness examination Z00.00 [place] [address] [address] Feb, [place] [address] [address] Oct, IMMUNIZATIONS No Known Immunizations SOCIAL HISTORY Never Assessed REASON FOR VISIT Pain management (chronic) - Donald HARE PLAN OF CARE Activity Details Follow Up 4 Weeks Reason:dm2 uncontrol led VITAL SIGNS Height 65.0 in 2018-10-07 Weight 303 lbs 2018-10-07 Temperature 97.8 degrees Fahrenheit 2018-10-07 Heart Rate 104 bpm 2018-10-07 Respiratory Rate 20 2018-10-07 BMI 50.42 kg/m2 2018-10-07 Blood pressure systolic 122 mmHg 2018-10-07 Blood pressure diastolic 68 mmHg 2018-10-07 MEDICATIONS Medication Instructions Dosage Frequency Start Date End Date Duration S tatus Iron 325 (65 Fe) MG Orally Once a day 1 tablet 24h 3 0 day(s) Active Topamax 100 mg Orally Twice a day 2 tablets 12h Feb, 30 days Active Effexor XR 150 MG Orally Once a day 1 capsule with food 24h Active Terbinafine HCl 1 % Externally Twice a day 1 application to affecte d area 12h Jul, Active Albuterol Sulfate HFA 108 (90 Base) MCG/ACT Inhalation every 4 hrs 2 puffs as needed 4h May, Active Zofran ODT 4 MG Orally every 8 hrs 1 tablet on the tongue and al low to dissolve 8h Nov, Active Phentermine HCl 15 mg Orally Once a day 1 capsule 24h 17 Sep, 2017 Active Tessalon Perles 100 mg Orally Three times a day 1 capsule as needed 8h 25 Aug, 2018 Active Hydrocodone-Ibuprofen 7.5-200 MG Orally every 6 hrs 1 tablet as nee ded 6h Aug, 28 days Active Seroquel 200 mg Orally Once a day 1 tablet at bedtime 24h Active Metformin HCl 1000 MG Orally 2 times a day with food 1 tablet with a meal Jul, Active Hmvfknefep-LJLT-Bctmlvhr 50-325-40 MG Orally every 4 hrs 1 tablet a s needed 4h Dec, Active Ferrous Sulfate 325 (65 Fe) mg Orally 2 times a day 1 tablet 12h Active Neurontin 600 MG Orally Three times a day 1 tablet 8h 30 Active Vistaril 25 MG Orally every 8 hrs 1 capsule as needed 8h Jul 30 day(s) Active Wheel Chair K1 Basic Desk Arm 1 as directed Apr, Active Ozempic 0.25 or 0.5 MG/DOSE Subcutaneous once weekly Inject 0.5 mg 12 Sep, 2018 Active Klor-Con M20 20MEQ 1 tablet 12h 30 Acti ve Ventolin HFA 108 (90 Base) MCG/ACT Inhalation every 6 hrs 2 puffs a s needed 6h 07 Jul, 2018 Active Glucocard Expression Test - In Vitro 2 times a day test blood sugar 12h 10 Aug, 2018 Active RESULTS No Results PROCEDURES Procedure Date Ordered Result Body Site [facility] VISIT ESTABLISHED PATIENT Oct 07, 2018 INSTRUCTIONS MEDICATIONS ADMINISTERED No [...] interstem replaced 05/2016 Hospitalization History [facility] [place]- Headache 12/18/2017
--- OUTSIDE RECORDS SUMMARY | 2019-11-27 06:41 | XMS REPORT ---
Author Author Tish MALCOLM Organization [facility] Address [address] [place] [address] Care Team Providers Care Graphics Artist Name Role Phone CHARIS MALCOLM Unavailable PROBLEMS Type Condition ICD9-CM Code XUL52-XD Code Onset Dates Condition S tatus SNOMED Code Problem Other chronic pain G89.29 Active 8 3396072 Problem Moderate persistent asthma with exacerbation J45.4 1 Active 176204297 Problem Obesity, morbid E66.01 Active 2381 95612 Problem Type 2 diabetes mellitus wit h hyperglycemia, without long-term current use of insulin E11.65 Active 43286932 Problem Pure hyperglyceridemia E78.1 Active 871042709 Problem Controlled type 2 diabetes m ellitus without complication, without long- term current use of insulin E11.9 Active 602369399 Problem Unsteady gait R26.81 Active 267044 08 Problem Chronic fatigue R53.82 Active 8422 9001 Problem Bipolar I disorder with depression F31.9 Active 21485480 Problem Chronic post-traumatic stress disorder (PTSD) F43. 12 Active 002317192 Problem Anemia D64.9 Active 263442861 Problem Hypopotassemia E87.6 Active 63961 004 Problem Overactive bladder N32.81 Active 2 38209647 Problem Chronic headaches R51 Active 43 6043133 Problem Anxiety F41.9 Active 26721633 Problem Acquired equinus deformity of left foot M21.6X2 Active 45630594 Problem Degenerative disc disease at L5-S1 level M51.36 Active 82859819 Problem Hypoxemia R09.02 Active 496031645 Problem Uncomplicated asthma, unspecified asthma severity J45.909 Active 239242412 Problem Morbid obesity due to excess calories E66.01 Active 661341386 ALLERGIES No Information ENCOUNTERS Encounter Location Date Diagnosis [facility] [address] [facility] [id number] [address] [place] [id number] Sep, [facility] [address] [facility] [id number] [address] [place] [address] Sep, [facility] [address] [id number] [address] [place] [address] Sep, [facility] [address] [id number] [address] [place] [address] Sep, [facility] [address] [id number] [address] [place] [address] Aug, Bipolar I disorder with depr ession F31.9 and Chronic post-traumatic stress disorder (PTSD) F43.12 [facility] [address] [id number] [address] [place] [address] Aug, [facility] [address] [id number] [address] [place] [address] Aug, [facility] [address] [id number] [address] [place] [address] Aug, Acute pain of left wrist M25 .532 and Type 2 diabetes mellitus with hyperglycemia, without long-term current use of insulin E11.65 [facility] [address] [id number] [address] [place] [address] Aug, [facility] [address] [id number] [address] [place] [address] Aug, [facility] [address] [id number] [address] [place] [address] Aug, Bipolar I disorder with depr ession F31.9 and Chronic post-traumatic stress disorder (PTSD) F43.12 [facility] [address] [id number] [address] [place] [address] Aug, Degenerative disc disease at L5-S1 level M51.36 [facility] [address] [id number] [address] [place] [address] Jul, Controlled type 2 diabetes m ellitus without complication, without long-term current use of insulin E11.9 [facility] [address] [id number] [address] [place] [address] Jul, 2018 Frequent headaches R51 [place] [address] [place] [id number] [address] [place] [address] Jul, [place] [address] [address] 19 Jul, 2018 Bipolar I disorder with depr ession F31.9 and Chronic post-traumatic stress disorder (PTSD) F43.12 [place] [address] [address] 10 Jul, 2018 Degenerative disc disease at L5-S1 level M51.36 [place] [address] [address] 07 Jul, 2018 Other chronic pain G89.29 ; Dysuria R30.0 ; Degenerative disc disease at L5-S1 level M51.36 ; Uncomplicated asthma, unspecified asthma severity J45.909 ; Vagina, candidiasis B37.3 ; Glucose found in urine on examination R81 ; Family history of diabetes mellitus Z83.3 and Controlled type 2 diabetes mellitus without complication, without long-term current use of insulin E11.9 [place] [address] [place] [id number] [address] [place] [address] Jun, Degenerative disc disease at L5-S1 level M51.36 [place] [address] [place] [id number] [address] [place] [address] Jun, [place] [address] [place] [id number] [address] [place] [address] Jun, Medicare annual wellness vis it, initial Z00.00 [place] [address] [place] [id number] [address] [place] [address] Jun, Degenerative disc disease at L5-S1 level M51.36 [place] [address] [place] [id number] [address] [place] [address] 13 Jun, 2018 Bipolar I disorder with depr ession F31.9 and Chronic post-traumatic stress disorder (PTSD) F43.12 [place] [address] [place] [id number] [address] [place] [address] 13 Jun, 2018 Degenerative disc disease at L5-S1 level M51.36 [facility] [address] [facility] [id number] [address] [place] [address] 07 Jun, 2018 Degenerative disc disease at L5-S1 level M51.36 [facility] [address] [place] [id number] [address] [place] [address] May, [facility] [address] [facility] [id number] [address] [place] [id number] 16 May, 2018 Degenerative disc disease at L5-S1 level M51.36 [facility] [address] [place] [id number] [place] [address] Apr, Degenerative disc disease at L5-S1 level M51.36 [place] [address] [place] [id number] [place] [address] 18 Apr, 2018 Unsteady gait R26.81 ; Chron ic fatigue R53.82 ; SOB (shortness of breath) R06.02 and Moderate persistent asthma with exacerbation J45.41 [place] [id number] [place] [id number] [address] [place] [address] Apr, Degenerative disc disease at L5-S1 level M51.36 [facility] [address] [place] [id number] [address] [place] [address] 05 Apr, 2018 Medicare annual wellness vis it, initial Z00.00 [facility] [address] [facility] [id number] [address] [place] [address] March, [facility] [address] [facility] [id number] [address] [place] [address] March, [facility] [address] [place] [id number] [address] [place] [address] Feb, Medicare annual wellness vis it, initial Z00.00 ; Bipolar 1 disorder F31.9 ; Low back pain M54.5 and Other chronic pain G89.29 [facility] [address] [place] [id number] [address] [place] [address] Jan, [place] [address] [place] [id number] [address] [place] [address] Dec, Frequent headaches R51 and D egenerative disc disease at L5-S1 level M51.36 [place] [address] [place] [id number] [address] [place] [address] Nov, [facility] [address] [address] Nov, Chronic intractable headache , unspecified headache type R51 [facility] IN [facility] [address] [address] Nov, Chronic headaches R51 and BM I 45.0-49.9, adult Z68.42 [place] [address] [address] Nov, [place] [address] [address] Nov, Obesity, morbid E66.01 ; Unc omplicated asthma, unspecified asthma severity J45.909 ; Anxiety F41.9 ; Pure hyperglyceridemia E78.1 and Family history of diabetes mellitus Z83.3 [place] [address] [address] Oct, Bronchitis J40 [place] [address] [address] Oct, Chronic headaches R51 [place] [address] [place] [id number] [address] [place] [address] Sep, [place] [address] [address] Sep, Chronic headaches R51 ; Othe r chronic pain G89.29 ; Anemia D64.9 and Obesity, morbid E66.01 [place] [address] [address] Aug, Acute suppurative otitis med ia of right ear without spontaneous rupture of tympanic membrane, recurrence not specified H66.001 [facility] [address] [id number] [address] [place] [address] Aug, Other chronic pain G89.29 [facility] [address] [id number] [address] [place] [address] Jul, Degenerative disc disease at L5-S1 level M51.36 [facility] [address] [id number] [address] [place] [address] 07 Jul, 2017 Other chronic pain G89.29 an d Sprain of deltoid ligament of left ankle, subsequent encounter S93.422D [facility] [address] [id number] [address] [place] [address] Jul, Degenerative disc disease at L5-S1 level M51.36 [facility] [address] [id number] [address] [place] [address] Jun, [facility] [address] [id number] [address] [place] [address] Jun, Degenerative disc disease at L5-S1 level M51.36 [facility] [address] [id number] [address] [place] [address] Jun, [facility] [address] [id number] [address] [place] [address] Jun, [facility] [address] [id number] [address] [place] [address] Jun, [facility] [address] [id number] [address] [place] [address] May, [facility] [address] [id number] [address] [place] [address] May, [facility] [address] [id number] [address] [place] [address] May, Rib pain on left side R07.81 [facility] [address] [address] Apr, Morbid obesity due to excess calories E66.01 [place] [address] [address] Apr, Gastroenteritis K52.9 [place] [address] [address] Apr, Degenerative disc disease at L5-S1 level M51.36 [place] [address] [address] March, Degenerative disc disease at L5-S1 level M51.36 [place] [address] [address] March, Bipolar 1 disorder F31.9 ; A nemia D64.9 ; Hypopotassemia E87.6 ; Uncomplicated asthma, unspecified asthma severity J45.909 ; Anxiety F41.9 ; Chronic headaches R51 and Degenerative disc disease at L5-S1 level M51.36 [place] [address] [address] March, Degenerative disc disease at L5-S1 level M51.36 [place] [address] [address] March, Degenerative disc disease at L5-S1 level M51.36 [place] [address] [address] March, Uncomplicated asthma, unspec ified asthma severity J45.909 ; Hypoxemia R09.02 ; Chronic headaches R51 and Degenerative disc disease at L5-S1 level M51.36 [place] [address] [address] March, [place] [address] [address] Feb, Acquired equinus deformity o f left foot M21.6X2 [place] [address] [address] Feb, Degenerative disc disease at L5-S1 level M51.36 [facility] [address] [facility] [id number] [address] [place] [address] Feb, Degenerative disc disease at L5-S1 level M51.36 [facility] [address] [facility] [id number] [address] [place] [address] Jan, Degenerative disc disease at L5-S1 level M51.36 [facility] [address] [facility] [id number] [address] [place] [address] Jan, Degenerative disc disease at L5-S1 level M51.36 [facility] [address] [facility] [id number] [address] [place] [address] Dec, Degenerative disc disease at L5-S1 level M51.36 [facility] [address] [facility] [id number] [address] [place] [address] Dec, Overactive bladder N32.81 an d Degenerative disc disease at L5-S1 level M51.36 [facility] [address] [facility] [id number] [address] [place] [address] Dec, Degenerative disc disease at L5-S1 level M51.36 [facility] [address] [facility] [id number] [address] [place] [address] Dec, Degenerative disc disease at L5-S1 level M51.36 [facility] [address] [facility] [id number] [address] [place] [address] Nov, [facility] [address] [facility] [id number] [address] [place] [address] Nov, Chronic headaches R51 [facility] [address] [facility] [id number] [address] [place] [address] Nov, Degenerative disc disease at L5-S1 level M51.36 [facility] [address] [facility] [id number] [address] [place] [address] Nov, Left upper quadrant pain R10 .12 [facility] [address] [place] [id number] [address] [place] [id number] Nov, Degenerative disc disease at L5-S1 level M51.36 [facility] [address] [place] [id number] [place] [address] Nov, Degenerative disc disease at L5-S1 level M51.36 [facility] [address] [place] [id number] [place] [address] Nov, Degenerative disc disease at L5-S1 level M51.36 [facility] [address] [place] [id number] [address] [place] [address] Nov, Degenerative disc disease at L5-S1 level M51.36 [facility] [address] [place] [id number] [place] [address] Nov, Degenerative disc disease at L5-S1 level M51.36 [place] [address] [address] Oct, Degenerative disc disease at L5-S1 level M51.36 [facility] [address] [address] Sep, Degenerative disc disease at L5-S1 level M51.36 [facility] [address] [address] Sep, Degenerative disc disease at L5-S1 level M51.36 ; Bipolar 1 disorder F31.9 ; Chronic headaches R51 ; Hypopotassemia E87.6 ; Uncomplicated asthma, unspecified asthma severity J45.909 ; Anxiety F41.9 ; Overactive bladder N32.81 and Anemia D64.9 [place] [address] [address] Sep, Degenerative disc disease at L5-S1 level M51.36 [facility] [address] [address] Aug, [facility] [address] [address] Aug, Degenerative disc disease at L5-S1 level M51.36 ; Chronic headaches R51 ; Bipolar 1 disorder F31.9 ; Overactive bladder N32.81 ; Anxiety F41.9 and Anemia D64.9 [facility] [address] [id number] [address] [place] [address] 24 Aug, 2016 Degenerative disc disease at L5-S1 level M51.36 [facility] [address] [id number] [address] [place] [address] 18 Aug, 2016 [facility] [address] [facility] [id number] [address] [place] [address] 14 Aug, 2016 [facility] [address] [facility] [id number] [address] [place] [address] 10 Aug, 2016 Degenerative disc disease at L5-S1 level M51.36 [facility] [address] [facility] [id number] [address] [place] [address] 28 Jul, 2016 Degenerative disc disease at L5-S1 level M51.36 [facility] [address] [facility] [id number] [address] [place] [address] 27 Jul, 2016 [facility] [address] [facility] [id number] [address] [place] [address] 23 Jul, 2016 [facility] [address] [facility] [id number] [address] [place] [address] 22 Jul, 2016 Degenerative disc disease at L5-S1 level M51.36 ; Pure hyperglyceridemia E78.1 ; Bipolar 1 disorder F31.9 ; Anemia D64.9 ; Overactive bladder N32.81 ; Hypopotassemia E87.6 ; Anxiety F41.9 ; Mild intermittent asthma without complication J45.20 and Chronic headaches R51 [facility] [address] [facility] [id number] [address] [place] [address] 15 Jul, 2016 [facility] [address] [facility] [id number] [address] [place] [address] 07 Jul, 2016 [facility] [address] [facility] [id number] [address] [place] [address] Jun, [facility] [address] [facility] [id number] [address] [place] [address] Jun, Bipolar 1 disorder F31.9 ; A nxiety F41.9 ; Overactive bladder N32.81 ; Chronic headaches R51 ; Degenerative disc disease at L5-S1 level M51.36 ; Hypopotassemia E87.6 ; Anemia D64.9 and Morbid obesity due to excess calories E66.01 [facility] [address] [place] [id number] [address] [place] [address] Jun, [facility] [address] [place] [id number] [place] [address] May, Overactive bladder N32.81 [facility] [address] [place] [id number] [place] [address] May, Bipolar 1 disorder F31.9 ; A nemia D64.9 ; Overactive bladder N32.81 ; Chronic headaches R51 ; Hypopotassemia E87.6 ; Degenerative disc disease at L5-S1 level M51.36 and Uncomplicated asthma, unspecified asthma severity J45.909 [facility] [address] [place] [id number] [address] [place] [address] May, [facility] [address] [place] [id number] [address] [place] [address] May, Chronic headaches R51 [facility] [address] [place] [id number] [address] [place] [address] Apr, Chronic headaches R51 [facility] [address] [place] [id number] [address] [place] [address] March, Chronic headaches R51 [facility] [address] [place] [id number] [place] [address] March, [facility] [address] [place] [id number] [address] [place] [address] Feb, Chronic headaches R51 and De generative disc disease at L5-S1 level M51.36 [place] [address] [facility] [id number] [address] [place] [address] 19 Feb, 2016 Hypopotassemia E87.6 ; Anemi a D64.9 ; Overactive bladder N32.81 ; Chronic headaches R51 and Degenerative disc disease at L5-S1 level M51.36 [place] [address] [place] [id number] [address] [place] [address] Feb, Bipolar 1 disorder F31.9 ; A nemia D64.9 and Overactive bladder N32.81 [place] [address] [place] [id number] [address] [place] [address] Feb, Scabies B86 ; Bipolar 1 diso rder F31.9 ; Anemia D64.9 ; Overactive bladder N32.81 ; Chronic headaches R51 ; Degenerative disc disease at L5-S1 level M51.36 and Wellness examination Z00.00 [place] [address] [place] [id number] [place] [address] 17 Feb, 2009 [place] [address] [place] [id number] [address] [place] [address] Oct, IMMUNIZATIONS No Known Immunizations SOCIAL HISTORY Never Assessed REASON FOR VISIT BS f/u PLAN OF CARE VITAL SIGNS MEDICATIONS Unknown Medications RESULTS No Results PROCEDURES No Known procedures [...] interstem replaced 05/2016 Hospitalization History [facility] [place]- Headache 12/18/2017
--- OUTSIDE RECORDS SUMMARY | 2019-11-27 06:41 | XMS REPORT ---
Author Author Tish MALCOLM Organization [facility] Address [address] [place] [address] Care Team Providers Care Client Hr Manager Name Role Phone CHARIS MALCOLM Unavailable PROBLEMS Type Condition ICD9-CM Code [id number] Code Onset Dates Condition S tatus SNOMED Code Problem Degenerative disc disease at L5-S1 level M51.36 Active 12065010 Problem Hypopotassemia E87.6 Active 86922 004 Problem Anxiety F41.9 Active 11204539 Problem Uncomplicated asthma, unspecified asthma severity J45.909 Active 244635058 Problem Hypoxemia R09.02 Active 568954279 Problem Acquired equinus deformity of left foot M21.6X2 Active 72782123 Problem Other chronic pain G89.29 Active 8 0792201 Problem Pure hyperglyceridemia E78.1 Active 227100242 Problem Morbid obesity due to excess calories E66.01 Active 129276046 Problem Chronic fatigue R53.82 Active 8422 9001 Problem Unsteady gait R26.81 Active 890162 08 Problem Chronic post-traumatic stress disorder (PTSD) F43. 12 Active 389410367 Problem Controlled type 2 diabetes m ellitus without complication, without long- term current use of insulin E11.9 Active 617637489 Problem Moderate persistent asthma with exacerbation J45.4 1 Active 899638068 Problem Chronic headaches R51 Active 43 0867694 Problem Mild intermittent asthma with acute exacerbation J 45.21 Active 031682967 Problem Obesity, morbid E66.01 Active 2381 00821 Problem Overactive bladder N32.81 Active 2 49701439 Problem Anemia D64.9 Active 991696920 Problem Bipolar I disorder with depression F31.9 Active 26983865 Problem Type 2 diabetes mellitus wit h hyperglycemia, without long-term current use of insulin E11.65 Active 38693166 Problem Migraine without aura and without status migrain osus, not intractable G43.009 Active 177508057 Problem Body mass index (BMI) of 45.0-49.9 in adult Z68.42 Active 571490498 ALLERGIES Substance Reaction Event Type Date Status [...] 9 Active ENCOUNTERS Encounter Location Date Diagnosis [place] [address] [address] May, [place] [address] [address] May, Controlled type 2 diabetes m ellitus without complication, without long-term current use of insulin E11.9 [place] [address] [address] Apr, [place] [address] [address] March, Bipolar I disorder with depr ession F31.9 ; Morbid obesity E66.01 ; Type 2 diabetes mellitus with hyperglycemia, without long-term current use of insulin E11.65 ; Pain in left shoulder M25.512 and Other chronic pain G89.29 [place] [address] [place] [id number] [place] [address] March, Controlled type 2 diabetes m ellitus without complication, without long-term current use of insulin E11.9 [facility] [address] [place] [id number] [place] [address] Jan, Mild intermittent asthma wit h acute exacerbation J45.21 [place] [address] [place] [id number] [place] [address] Jan, Controlled type 2 diabetes m ellitus without complication, without long-term current use of insulin E11.9 [facility] [address] [place] [id number] [place] [address] Jan, Mild intermittent asthma wit h acute exacerbation J45.21 ; Bronchitis J40 ; Chest congestion R09.89 and Morbid obesity E66.01 [place] [address] [address] Jan, Controlled type 2 diabetes m freedomitus without complication, without long-term current use of insulin E11.9 [place] [address] [address] Dec, Viral upper respiratory infe ction J06.9 ; Cough R05 and BMI 45.0- 49.9, adult Z68.42 [place] [address] [address] Dec, [place] [address] [address] Dec, Type 2 diabetes mellitus wit h hyperglycemia, without long-term current use of insulin E11.65 ; Migraine without aura and without status migrainosus, not intractable G43.009 and BMI 45.0-49.9, adult Z68.42 [place] [address] [address] Nov, Degenerative disc disease at L5-S1 level M51.36 [place] [address] [address] Nov, [place] [address] [address] Nov, Degenerative disc disease at L5-S1 level M51.36 [place] [address] [place] [id number] [place] [address] Oct, [place] [address] [place] [id number] [place] [address] Oct, Controlled type 2 diabetes m ellitus without complication, without long-term current use of insulin E11.9 [place] [address] [address] Oct, Degenerative disc disease at L5-S1 level M51.36 [facility] [address] [id number] [address] [place] [address] Sep, Degenerative disc disease at L5-S1 level M51.36 [facility] [address] [id number] [address] [place] [address] Sep, Degenerative disc disease at L5-S1 level M51.36 [facility] [address] [id number] [address] [place] [address] Sep, Controlled type 2 diabetes m ellitus without complication, without long-term current use of insulin E11.9 [facility] [address] [id number] [address] [place] [address] Sep, [facility] [address] [id number] [address] [place] [address] Sep, [facility] [address] [id number] [address] [place] [address] Aug, Bipolar I disorder with depr ession F31.9 and Chronic post-traumatic stress disorder (PTSD) F43.12 [facility] [address] [id number] [address] [place] [address] Aug, [facility] [address] [id number] [address] [place] [address] Aug, [facility] [address] [id number] [address] [place] [address] Aug, Acute pain of left wrist M25 .532 and Type 2 diabetes mellitus with hyperglycemia, without long-term current use of insulin E11.65 [facility] [address] [id number] [address] [place] [address] Aug, [facility] [address] [id number] [address] [place] [address] Aug, [facility] [address] [id number] [address] [place] [address] Aug, Bipolar I disorder with depr ession F31.9 and Chronic post-traumatic stress disorder (PTSD) F43.12 [place] [address] [id number] [address] [place] [address] Aug, Degenerative disc disease at L5-S1 level M51.36 [place] [address] [id number] [address] [place] [address] Jul, Controlled type 2 diabetes josh ferrara without complication, without long-term current use of insulin E11.9 [place] [address] [id number] [address] [place] [address] Jul, Frequent headaches R51 [place] [address] [id number] [address] [place] [address] Jul, [place] [address] [facility] [id number] [address] [place] [address] Jul, Bipolar I disorder with depr ession F31.9 and Chronic post-traumatic stress disorder (PTSD) F43.12 [place] [address] [id number] [address] [place] [address] Jul, Degenerative disc disease at L5-S1 level M51.36 [place] [address] [facility] [id number] [address] [place] [address] 07 Jul, 2018 Other chronic pain G89.29 ; Dysuria R30.0 ; Degenerative disc disease at L5-S1 level M51.36 ; Uncomplicated asthma, unspecified asthma severity J45.909 ; Vagina, candidiasis B37.3 ; Glucose found in urine on examination R81 ; Family history of diabetes mellitus Z83.3 and Controlled type 2 diabetes mellitus without complication, without long-term current use of insulin E11.9 [place] [address] [id number] [address] [place] [address] Jun, Degenerative disc disease at L5-S1 level M51.36 [place] [address] [facility] [id number] [address] [place] [address] Jun, [place] [address] [address] 22 Jun, 2018 Medicare annual wellness vis it, initial Z00.00 [place] [address] [address] 22 Jun, 2018 Degenerative disc disease at L5-S1 level M51.36 [place] [address] [address] Jun, Bipolar I disorder with depr ession F31.9 and Chronic post-traumatic stress disorder (PTSD) F43.12 [place] [address] [address] 13 Jun, 2018 Degenerative disc disease at L5-S1 level M51.36 [place] [address] [address] 07 Jun, 2018 Degenerative disc disease at L5-S1 level M51.36 [place] [address] [address] May, [place] [address] [address] 16 May, 2018 Degenerative disc disease at L5-S1 level M51.36 [place] [address] [address] 27 Apr, 2018 Degenerative disc disease at L5-S1 level M51.36 [place] [address] [address] 18 Apr, 2018 Unsteady gait R26.81 ; Chron ic fatigue R53.82 ; SOB (shortness of breath) R06.02 and Moderate persistent asthma with exacerbation J45.41 [place] [address] [address] 13 Apr, 2018 Degenerative disc disease at L5-S1 level M51.36 [place] [address] [address] 05 Apr, 2018 Medicare annual wellness vis it, initial Z00.00 [place] [address] [place] [id number] [place] [address] March, [facility] [address] [address] March, [facility] [address] [place] [id number] [place] [address] Feb, Medicare annual wellness vis it, initial Z00.00 ; Bipolar 1 disorder F31.9 ; Low back pain M54.5 and Other chronic pain G89.29 [facility] [address] [place] [id number] [place] [address] Jan, [place] [address] [address] Dec, Frequent headaches R51 and D egenerative disc disease at L5-S1 level M51.36 [place] [address] [address] Nov, [facility] [address] [address] Nov, Chronic intractable headache , unspecified headache type R51 [facility] [address] [address] Nov, Chronic headaches R51 and BM I 45.0-49.9, adult Z68.42 [place] [address] [address] Nov, [place] [address] [address] Nov, Obesity, morbid E66.01 ; Unc omplicated asthma, unspecified asthma severity J45.909 ; Anxiety F41.9 ; Pure hyperglyceridemia E78.1 and Family history of diabetes mellitus Z83.3 [place] [address] [place] [id number] [place] [address] Oct, Bronchitis J40 [place] [address] [place] [address] Oct, Chronic headaches R51 [facility] [address] [place] [id number] [address] Sep, [facility] [address] [place] [id number] [place] [address] Sep, Chronic headaches R51 ; Othe r chronic pain G89.29 ; Anemia D64.9 and Obesity, morbid E66.01 [facility] [address] [place] [id number] [place] [address] Aug, Acute suppurative otitis med ia of right ear without spontaneous rupture of tympanic membrane, recurrence not specified H66.001 [place] [address] [place] [id number] [place] [address] Aug, Other chronic pain G89.29 [place] [address] [address] Jul, Degenerative disc disease at L5-S1 level M51.36 [facility] [address] [address] 07 Jul, 2017 Other chronic pain G89.29 an d Sprain of deltoid ligament of left ankle, subsequent encounter S93.422D [place] [address] [place] [id number] [place] [address] 05 Jul, 2017 Degenerative disc disease at L5-S1 level M51.36 [facility] [address] [place] [id number] [place] [address] Jun, [facility] [address] [place] [id number] [place] [address] Jun, Degenerative disc disease at L5-S1 level M51.36 [facility] [address] [place] [id number] [place] [address] Jun, [facility] [address] [place] [id number] [place] [address] Jun, [place] [address] [facility] [id number] [address] [place] [address] Jun, [facility] [address] [facility] [id number] [address] [place] [address] May, [facility] [address] [facility] [id number] [address] [place] [address] May, [facility] [address] [facility] [id number] [address] [place] [address] May, Rib pain on left side R07.81 [facility] [address] [facility] [id number] [address] [place] [address] Apr, Morbid obesity due to excess calories E66.01 [facility] [address] [facility] [id number] [address] [place] [address] Apr, Gastroenteritis K52.9 [place] [address] [place] [id number] [place] [address] Apr, Degenerative disc disease at L5-S1 level M51.36 [facility] [address] [place] [id number] [place] [address] March, Degenerative disc disease at L5-S1 level M51.36 [place] [address] [place] [id number] [place] [address] March, Bipolar 1 disorder F31.9 ; A nemia D64.9 ; Hypopotassemia E87.6 ; Uncomplicated asthma, unspecified asthma severity J45.909 ; Anxiety F41.9 ; Chronic headaches R51 and Degenerative disc disease at L5-S1 level M51.36 [facility] [address] [facility] [id number] [address] [place] [address] March, Degenerative disc disease at L5-S1 level M51.36 [facility] [address] [facility] [id number] [address] [place] [address] March, Degenerative disc disease at L5-S1 level M51.36 [facility] [address] [place] [id number] [place] [address] March, Uncomplicated asthma, unspec ified asthma severity J45.909 ; Hypoxemia R09.02 ; Chronic headaches R51 and Degenerative disc disease at L5-S1 level M51.36 [facility] [address] [place] [id number] [address] [place] [address] March, [place] [address] [address] Feb, Acquired equinus deformity o f left foot M21.6X2 [facility] [address] [place] [id number] [place] [address] Feb, Degenerative disc disease at L5-S1 level M51.36 [place] [address] [address] Feb, Degenerative disc disease at L5-S1 level M51.36 [place] [address] [address] Jan, Degenerative disc disease at L5-S1 level M51.36 [place] [address] [place] [id number] [place] [address] Jan, Degenerative disc disease at L5-S1 level M51.36 [place] [address] [place] [id number] [place] [address] Dec, Degenerative disc disease at L5-S1 level M51.36 [place] [address] [address] Dec, Overactive bladder N32.81 an d Degenerative disc disease at L5-S1 level M51.36 [place] [address] [place] [id number] [place] [address] Dec, Degenerative disc disease at L5-S1 level M51.36 [place] [address] [place] [id number] [place] [address] Dec, Degenerative disc disease at L5-S1 level M51.36 [place] [address] [place] [id number] [place] [address] Nov, [facility] [address] [id number] [address] [place] [address] Nov, Chronic headaches R51 [facility] [address] [facility] [id number] [address] [place] [address] Nov, Degenerative disc disease at L5-S1 level M51.36 [facility] [address] [facility] [id number] [address] [place] [address] Nov, Left upper quadrant pain R10 .12 [facility] [address] [id number] [address] [place] [address] Nov, Degenerative disc disease at L5-S1 level M51.36 [facility] [address] [facility] [id number] [address] [place] [address] Nov, Degenerative disc disease at L5-S1 level M51.36 [facility] [address] [facility] [id number] [address] [place] [address] Nov, Degenerative disc disease at L5-S1 level M51.36 [facility] [address] [facility] [id number] [address] [place] [address] Nov, Degenerative disc disease at L5-S1 level M51.36 [facility] [address] [facility] [id number] [address] [place] [address] Nov, Degenerative disc disease at L5-S1 level M51.36 [facility] [address] [facility] [id number] [address] [place] [address] Oct, Degenerative disc disease at L5-S1 level M51.36 [facility] [address] [facility] [id number] [address] [place] [address] Sep, Degenerative disc disease at L5-S1 level M51.36 [facility] [address] [facility] [id number] [address] [place] [address] Sep, Degenerative disc disease at L5-S1 level M51.36 ; Bipolar 1 disorder F31.9 ; Chronic headaches R51 ; Hypopotassemia E87.6 ; Uncomplicated asthma, unspecified asthma severity J45.909 ; Anxiety F41.9 ; Overactive bladder N32.81 and Anemia D64.9 [facility] [address] [id number] [address] [place] [address] Sep, Degenerative disc disease at L5-S1 level M51.36 [facility] [address] [facility] [id number] [address] [place] [address] Aug, [facility] [address] [id number] [address] [place] [address] Aug, Degenerative disc disease at L5-S1 level M51.36 ; Chronic headaches R51 ; Bipolar 1 disorder F31.9 ; Overactive bladder N32.81 ; Anxiety F41.9 and Anemia D64.9 [facility] [address] [facility] [id number] [address] [place] [address] Aug, Degenerative disc disease at L5-S1 level M51.36 [facility] [address] [id number] [address] [place] [address] 18 Aug, 2016 [facility] [address] [facility] [id number] [address] [place] [address] 14 Aug, 2016 [facility] [address] [facility] [id number] [address] [place] [address] 10 Aug, 2016 Degenerative disc disease at L5-S1 level M51.36 [facility] [address] [id number] [address] [place] [address] 28 Jul, 2016 Degenerative disc disease at L5-S1 level M51.36 [facility] [address] [id number] [address] [place] [address] 27 Jul, 2016 [facility] [address] [facility] [id number] [address] [place] [address] 23 Jul, 2016 [facility] [address] [facility] [id number] [address] [place] [address] 22 Jul, 2016 Degenerative disc disease at L5-S1 level M51.36 ; Pure hyperglyceridemia E78.1 ; Bipolar 1 disorder F31.9 ; Anemia D64.9 ; Overactive bladder N32.81 ; Hypopotassemia E87.6 ; Anxiety F41.9 ; Mild intermittent asthma without complication J45.20 and Chronic headaches R51 [place] [address] [facility] [id number] [address] [place] [address] 15 Jul, 2016 [place] [address] [place] [id number] [place] [address] 07 Jul, 2016 [place] [address] [place] [id number] [place] [address] Jun, [place] [address] [place] [id number] [place] [address] Jun, Bipolar 1 disorder F31.9 ; A nxiety F41.9 ; Overactive bladder N32.81 ; Chronic headaches R51 ; Degenerative disc disease at L5-S1 level M51.36 ; Hypopotassemia E87.6 ; Anemia D64.9 and Morbid obesity due to excess calories E66.01 [place] [address] [facility] [id number] [address] [place] [address] Jun, [place] [address] [place] [id number] [place] [address] May, Overactive bladder N32.81 [place] [address] [place] [id number] [place] [address] May, Bipolar 1 disorder F31.9 ; A nemia D64.9 ; Overactive bladder N32.81 ; Chronic headaches R51 ; Hypopotassemia E87.6 ; Degenerative disc disease at L5-S1 level M51.36 and Uncomplicated asthma, unspecified asthma severity J45.909 [place] [address] [facility] [id number] [address] [place] [address] May, [place] [address] [place] [id number] [place] [address] May, Chronic headaches R51 [place] [address] [place] [id number] [place] [address] Apr, Chronic headaches R51 [place] [address] [address] March, Chronic headaches R51 [place] [address] [address] March, [place] [address] [id number] Feb, Chronic headaches R51 and De generative disc disease at L5-S1 level M51.36 [place] [address] [address] Feb, Hypopotassemia E87.6 ; Anemi a D64.9 ; Overactive bladder N32.81 ; Chronic headaches R51 and Degenerative disc disease at L5-S1 level M51.36 [place] [address] [address] Feb, Bipolar 1 disorder F31.9 ; A nemia D64.9 and Overactive bladder N32.81 [place] [address] [address] Feb, Scabies B86 ; Bipolar 1 diso rder F31.9 ; Anemia D64.9 ; Overactive bladder N32.81 ; Chronic headaches R51 ; Degenerative disc disease at L5-S1 level M51.36 and Wellness examination Z00.00 [place] [address] [address] [place] [id number] [address] [place] [phone] Feb, [place] [address] [address] Oct, IMMUNIZATIONS No Known Immunizations SOCIAL HISTORY Never Assessed REASON FOR VISIT ROSSI Burkett RN PLAN OF CARE VITAL SIGNS Height 65.0 in 2019-02-07 Weight 285 lbs 2019-02-07 Temperature 97.8 degrees Fahrenheit 2019-02-07 Heart Rate 88 bpm 2019-02-07 Respiratory Rate 18 2019-02-07 BMI 47.42 kg/m2 2019-02-07 Blood pressure systolic 124 mmHg 2019-02-07 Blood pressure diastolic 80 mmHg 2019-02-07 MEDICATIONS Medication Instructions Dosage Frequency Start Date End Date Duration S tatus Glucocard Expression Test - In Vitro 2 times a day test blood sugar 12h 10 Aug, 2018 Active Metformin HCl 1000 mg Orally 2 times a day 1 tablet with a meal 12h Jul, 30 days Active Topamax 100 mg Orally Twice a day 2 tablets 12h 30 Active Hydrocodone-Ibuprofen 7.5-200 MG Orally every 6 hrs 1 tablet as nee ded 6h Jan, 28 days Active Seroquel 200 mg Orally Once a day 1 tablet at bedtime 24h Active Tfwtjswmyy-XBET-Lhtsuzfp 50-325-40 MG Orally every 4 hrs 1 tablet a s needed 4h Dec, Active Neurontin 600 MG Orally Three times a day 1 tablet 8h 30 Active Maxalt 10 MG Orally Once a day 1 tablet as needed one time 24h 2018 Active Zofran ODT 4 MG Orally every 8 hrs 1 tablet on the tongue and al low to dissolve 8h Nov, Active Klor-Con M20 20MEQ 1 tablet 12h 30 Acti ve Effexor XR 150 MG Orally Once a day 1 capsule with food 24h Active Ventolin HFA 108 (90 Base) MCG/ACT Inhalation every 6 hrs 2 puffs a s needed 6h 07 Jul, 2018 Active Iron 325 (65 Fe) MG Orally Once a day 1 tablet 24h 3 0 day(s) Active Vistaril 25 MG Orally every 8 hrs 1 capsule as needed 8h Jul 30 day(s) Active Ozempic 0.25 or 0.5 MG/DOSE Subcutaneous once weekly Inject 0.5 mg 28 Active RESULTS No Results PROCEDURES Procedure Date Ordered Result Body Site [facility] VISIT ESTABLISHED PATIENT February 07, 2019 INSTRUCTIONS MEDICATIONS ADMINISTERED No Known Medications [...] interstem replaced 05/2016 Hospitalization History [facility]- Headache 12/18/2017
--- OUTSIDE RECORDS SUMMARY | 2019-11-27 06:42 | XMS REPORT ---
Author Author Tish MALCOLM Organization [facility] Address [address] [place] [address] Care Team Providers Care Chaplain Resident Name Role Phone CHARIS MALCOLM Unavailable PROBLEMS Type Condition ICD9-CM Code HBP33-TW Code Onset Dates Condition S tatus SNOMED Code Problem Other chronic pain G89.29 Active 8 4115289 Problem Moderate persistent asthma with exacerbation J45.4 1 Active 718490606 Problem Obesity, morbid E66.01 Active 2381 06166 Problem Type 2 diabetes mellitus wit h hyperglycemia, without long-term current use of insulin E11.65 Active 30810947 Problem Pure hyperglyceridemia E78.1 Active 636960932 Problem Controlled type 2 diabetes m ellitus without complication, without long- term current use of insulin E11.9 Active 344154692 Problem Unsteady gait R26.81 Active 164277 08 Problem Chronic fatigue R53.82 Active 8422 9001 Problem Bipolar I disorder with depression F31.9 Active 83650087 Problem Chronic post-traumatic stress disorder (PTSD) F43. 12 Active 669248135 Problem Anemia D64.9 Active 013548295 Problem Hypopotassemia E87.6 Active 87675 004 Problem Overactive bladder N32.81 Active 2 31135917 Problem Chronic headaches R51 Active 43 5808637 Problem Anxiety F41.9 Active 16358386 Problem Acquired equinus deformity of left foot M21.6X2 Active 22661728 Problem Degenerative disc disease at L5-S1 level M51.36 Active 40667264 Problem Hypoxemia R09.02 Active 846809668 Problem Uncomplicated asthma, unspecified asthma severity J45.909 Active 735976824 Problem Morbid obesity due to excess calories E66.01 Active 413790338 ALLERGIES No Information ENCOUNTERS Encounter Location Date Diagnosis [facility] [address] [facility] [id number] [address] [place] [phone] Sep, [facility] [address] [facility] [id number] [address] [place] [id number] Sep, [facility] [address] [id number] [address] [place] [phone] Aug, [facility] [address] [id number] [address] [place] [id number] Aug, [facility] [address] [id number] [address] [place] [id number] Aug, Acute pain of left wrist M25 .532 and Type 2 diabetes mellitus with hyperglycemia, without long-term current use of insulin E11.65 [facility] [address] [id number] [address] [place] [id number] Aug, [facility] [address] [id number] [address] [place] [phone] Aug, [facility] [address] [id number] [address] [place] [phone] Aug, Bipolar I disorder with depr ession F31.9 and Chronic post-traumatic stress disorder (PTSD) F43.12 [facility] [address] [id number] [address] [place] [id number] Aug, Degenerative disc disease at L5-S1 level M51.36 [facility] [address] [id number] [address] [place] [id number] Jul, Controlled type 2 diabetes m ellitus without complication, without long-term current use of insulin E11.9 [facility] [address] [id number] [address] [place] [id number] Jul, Frequent headaches R51 [facility] [address] [id number] [address] [place] [id number] Jul, [facility] [address] [id number] [address] [place] [phone] Jul, Bipolar I disorder with depr ession F31.9 and Chronic post-traumatic stress disorder (PTSD) F43.12 [facility] [address] [id number] [address] [place] [phone] Jul, [facility] [address] [facility] [id number] [address] [place] [id number] Jul, Other chronic pain G89.29 ; Dysuria R30.0 ; Degenerative disc disease at L5-S1 level M51.36 ; Uncomplicated asthma, unspecified asthma severity J45.909 ; Vagina, candidiasis B37.3 ; Glucose found in urine on examination R81 ; Family history of diabetes mellitus Z83.3 and Controlled type 2 diabetes mellitus without complication, without long-term current use of insulin E11.9 [facility] [address] [facility] [id number] [address] [place] [id number] Jun, Degenerative disc disease at L5-S1 level M51.36 [place] [address] [facility] [id number] [address] [place] [id number] Jun, [place] [address] [place] [id number] [address] [place] [id number] Jun, Medicare annual wellness vis it, initial Z00.00 [facility] [address] [facility] [id number] [address] [place] [id number] Jun, [facility] [address] [facility] [id number] [address] [place] [id number] Jun, Bipolar I disorder with depr ession F31.9 and Chronic post-traumatic stress disorder (PTSD) F43.12 [facility] [address] [facility] [id number] [address] [place] [id number] Jun, Degenerative disc disease at L5-S1 level M51.36 [facility] [address] [facility] [id number] [address] [place] [id number] Jun, [facility] [address] [facility] [id number] [address] [place] [phone] May, [facility] [address] [facility] [id number] [address] [place] [phone] May, [facility] [address] [facility] [id number] [address] [place] [id number] Apr, Degenerative disc disease at L5-S1 level M51.36 [place] [address] [id number] [address] [place] [id number] 18 Apr, 2018 Unsteady gait R26.81 ; Chron ic fatigue R53.82 ; SOB (shortness of breath) R06.02 and Moderate persistent asthma with exacerbation J45.41 [place] [address] [facility] [id number] [address] [place] [id number] 13 Apr, 2018 Degenerative disc disease at L5-S1 level M51.36 [place] [address] [id number] [address] [place] [id number] 05 Apr, 2018 Medicare annual wellness vis it, initial Z00.00 [place] [address] [facility] [id number] [address] [place] [phone] March, [place] [address] [facility] [id number] [address] [place] [id number] March, [place] [address] [facility] [id number] [address] [place] [phone] Feb, Medicare annual wellness vis it, initial Z00.00 ; Bipolar 1 disorder F31.9 ; Low back pain M54.5 and Other chronic pain G89.29 [place] [address] [facility] [id number] [address] [place] [id number] Jan, [place] [address] [facility] [id number] [address] [place] [phone] Dec, Frequent headaches R51 and D egenerative disc disease at L5-S1 level M51.36 [place] [address] [facility] [id number] [address] [place] [phone] Nov, [facility] [address] [facility] [id number] [address] [place] [phone] Nov, Chronic intractable headache , unspecified headache type R51 [facility] [address] [facility] [id number] [address] [place] [id number] Nov, Chronic headaches R51 and BM I 45.0-49.9, adult Z68.42 [place] [address] [address] Nov, [place] [address] [address] Nov, Obesity, morbid E66.01 ; Unc omplicated asthma, unspecified asthma severity J45.909 ; Anxiety F41.9 ; Pure hyperglyceridemia E78.1 and Family history of diabetes mellitus Z83.3 [place] [address] [address] Oct, Bronchitis J40 [place] [address] [id number] 06 Oct, 2017 Chronic headaches R51 [place] [address] [address] Sep, [place] [address] [address] Sep, Chronic headaches R51 ; Othe r chronic pain G89.29 ; Anemia D64.9 and Obesity, morbid E66.01 [place] [address] [address] 12 Aug, 2017 Acute suppurative otitis med ia of right ear without spontaneous rupture of tympanic membrane, recurrence not specified H66.001 [place] [address] [id number] 11 Aug, 2017 Other chronic pain G89.29 [place] [address] [address] 18 Jul, 2017 Degenerative disc disease at L5-S1 level M51.36 [place] [address] [id number] 07 Jul, 2017 Other chronic pain G89.29 an d Sprain of deltoid ligament of left ankle, subsequent encounter S93.422D [place] [address] [id number] [address] [place] [id number] Jul, Degenerative disc disease at L5-S1 level M51.36 [facility] [address] [id number] [address] [place] [id number] Jun, [facility] [address] [id number] [address] [place] [id number] Jun, Degenerative disc disease at L5-S1 level M51.36 [facility] [address] [id number] [address] [place] [id number] Jun, [facility] [address] [id number] [address] [place] [id number] Jun, [facility] [address] [id number] [address] [place] [phone] Jun, [facility] [address] [id number] [address] [place] [phone] May, [facility] [address] [id number] [address] [place] [id number] May, [facility] [address] [id number] [address] [place] [id number] May, Rib pain on left side R07.81 [facility] [address] [id number] [address] [place] [id number] Apr, Morbid obesity due to excess calories E66.01 [facility] [address] [id number] [address] [place] [id number] Apr, Gastroenteritis K52.9 [facility] [address] [id number] [address] [place] [id number] Apr, Degenerative disc disease at L5-S1 level M51.36 [facility] [address] [id number] [address] [place] [id number] March, Degenerative disc disease at L5-S1 level M51.36 [facility] [address] [id number] March, Bipolar 1 disorder F31.9 ; A nemia D64.9 ; Hypopotassemia E87.6 ; Uncomplicated asthma, unspecified asthma severity J45.909 ; Anxiety F41.9 ; Chronic headaches R51 and Degenerative disc disease at L5-S1 level M51.36 [place] [address] [address] March, Degenerative disc disease at L5-S1 level M51.36 [place] [address] [address] March, Degenerative disc disease at L5-S1 level M51.36 [place] [address] [address] March, Uncomplicated asthma, unspec ified asthma severity J45.909 ; Hypoxemia R09.02 ; Chronic headaches R51 and Degenerative disc disease at L5-S1 level M51.36 [place] [address] [address] March, [place] [address] [address] Feb, Acquired equinus deformity o f left foot M21.6X2 [place] [address] [address] Feb, Degenerative disc disease at L5-S1 level M51.36 [place] [address] [address] Feb, Degenerative disc disease at L5-S1 level M51.36 [place] [address] [address] Jan, Degenerative disc disease at L5-S1 level M51.36 [place] [address] [place] [id number] [place] [address] Jan, Degenerative disc disease at L5-S1 level M51.36 [place] [address] [place] [id number] [place] [address] Dec, Degenerative disc disease at L5-S1 level M51.36 [facility] [address] [facility] [id number] [address] [place] [id number] Dec, Overactive bladder N32.81 an d Degenerative disc disease at L5-S1 level M51.36 [facility] [address] [facility] [id number] [address] [place] [id number] Dec, Degenerative disc disease at L5-S1 level M51.36 [facility] [address] [facility] [id number] [address] [place] [id number] Dec, Degenerative disc disease at L5-S1 level M51.36 [facility] [address] [facility] [id number] [address] [place] [id number] Nov, [facility] [address] [facility] [id number] [address] [place] [id number] Nov, Chronic headaches R51 [facility] [address] [facility] [id number] [address] [place] [phone] Nov, Degenerative disc disease at L5-S1 level M51.36 [facility] [address] [facility] [id number] [address] [place] [id number] Nov, Left upper quadrant pain R10 .12 [facility] [address] [facility] [id number] [address] [place] [id number] Nov, Degenerative disc disease at L5-S1 level M51.36 [facility] [address] [facility] [id number] [address] [place] [id number] Nov, Degenerative disc disease at L5-S1 level M51.36 [facility] [address] [facility] [id number] [address] [place] [id number] Nov, Degenerative disc disease at L5-S1 level M51.36 [facility] [address] [facility] [id number] [address] [place] [id number] Nov, Degenerative disc disease at L5-S1 level M51.36 [facility] [address] [place] [id number] [address] [place] [id number] Nov, Degenerative disc disease at L5-S1 level M51.36 [facility] [address] [place] [id number] [address] [place] [id number] Oct, Degenerative disc disease at L5-S1 level M51.36 [facility] [address] [place] [id number] [place] [address] Sep, Degenerative disc disease at L5-S1 level M51.36 [facility] [address] [place] [id number] [address] [place] [id number] Sep, Degenerative disc disease at L5-S1 level M51.36 ; Bipolar 1 disorder F31.9 ; Chronic headaches R51 ; Hypopotassemia E87.6 ; Uncomplicated asthma, unspecified asthma severity J45.909 ; Anxiety F41.9 ; Overactive bladder N32.81 and Anemia D64.9 [facility] [address] [id number] Sep, Degenerative disc disease at L5-S1 level M51.36 [facility] [address] [place] [id number] [place] [address] Aug, [place] [address] [place] [id number] [place] [address] Aug, Degenerative disc disease at L5-S1 level M51.36 ; Chronic headaches R51 ; Bipolar 1 disorder F31.9 ; Overactive bladder N32.81 ; Anxiety F41.9 and Anemia D64.9 [facility] [address] [place] [id number] [address] [place] [id number] Aug, Degenerative disc disease at L5-S1 level M51.36 [facility] [address] [place] [id number] [address] [place] [id number] 18 Aug, 2016 [facility] [address] [place] [id number] [address] [place] [id number] 14 Aug, 2016 [place] [id number] [address] 10 Aug, 2016 Degenerative disc disease at L5-S1 level M51.36 [facility] [address] [address] 28 Jul, 2016 Degenerative disc disease at L5-S1 level M51.36 [facility] [address] [place] [id number] [place] [address] 27 Jul, 2016 [facility] [address] [place] [id number] [place] [address] 23 Jul, 2016 [place] [address] [address] 22 Jul, 2016 Degenerative disc disease at L5-S1 level M51.36 ; Pure hyperglyceridemia E78.1 ; Bipolar 1 disorder F31.9 ; Anemia D64.9 ; Overactive bladder N32.81 ; Hypopotassemia E87.6 ; Anxiety F41.9 ; Mild intermittent asthma without complication J45.20 and Chronic headaches R51 [place] [address] [address] 15 Jul, 2016 [place] [address] [address] 07 Jul, 2016 [place] [address] [address] Jun, [facility] [address] [address] Jun, Bipolar 1 disorder F31.9 ; A nxiety F41.9 ; Overactive bladder N32.81 ; Chronic headaches R51 ; Degenerative disc disease at L5-S1 level M51.36 ; Hypopotassemia E87.6 ; Anemia D64.9 and Morbid obesity due to excess calories E66.01 [facility] [address] [address] Jun, [facility] [address] [place] [id number] [place] [address] May, Overactive bladder N32.81 [facility] [address] [facility] [id number] [address] [place] [id number] May, Bipolar 1 disorder F31.9 ; A nemia D64.9 ; Overactive bladder N32.81 ; Chronic headaches R51 ; Hypopotassemia E87.6 ; Degenerative disc disease at L5-S1 level M51.36 and Uncomplicated asthma, unspecified asthma severity J45.909 [facility] [address] [facility] [id number] [address] [place] [id number] May, [facility] [address] [facility] [id number] [address] [place] [id number] May, Chronic headaches R51 [facility] [address] [place] [id number] [address] [place] [phone] Apr, Chronic headaches R51 [facility] [address] [place] [id number] [address] [place] [phone] March, Chronic headaches R51 [facility] [address] [facility] [id number] [address] [place] [id number] March, [facility] [address] [facility] [id number] [address] [place] [id number] Feb, Chronic headaches R51 and De generative disc disease at L5-S1 level M51.36 [facility] [address] [facility] [id number] [address] [place] [id number] Feb, Hypopotassemia E87.6 ; Anemi a D64.9 ; Overactive bladder N32.81 ; Chronic headaches R51 and Degenerative disc disease at L5-S1 level M51.36 [facility] [address] [facility] [id number] [address] [place] [id number] Feb, Bipolar 1 disorder F31.9 ; A nemia D64.9 and Overactive bladder N32.81 [facility] [address] [facility] [id number] [address] [place] [id number] Feb, Scabies B86 ; Bipolar 1 diso rder F31.9 ; Anemia D64.9 ; Overactive bladder N32.81 ; Chronic headaches R51 ; Degenerative disc disease at L5-S1 level M51.36 and Wellness examination Z00.00 [facility] [address] [facility] [id number] [address] [address] Feb, [facility] [address] [facility] [id number] [address] [place] [phone] Oct, IMMUNIZATIONS No Known Immunizations SOCIAL HISTORY Never Assessed REASON FOR VISIT BS f/u attempt PLAN OF CARE VITAL SIGNS MEDICATIONS Unknown [...] interstem replaced 05/2016 Hospitalization History [facility]- Headache 12/18/2017
--- OUTSIDE RECORDS SUMMARY | 2019-11-27 06:42 | XMS REPORT ---
Author Author Tish MALCOLM Organization [facility] Address [address] [place] [address] Care Team Providers Care Compensation Business Partner Name Role Phone CHARIS MALCOLM Unavailable PROBLEMS Type Condition ICD9-CM Code UDW91-BT Code Onset Dates Condition S tatus SNOMED Code Problem Other chronic pain G89.29 Active 8 4785435 Problem Moderate persistent asthma with exacerbation J45.4 1 Active 222660669 Problem Obesity, morbid E66.01 Active 2381 27623 Problem Type 2 diabetes mellitus wit h hyperglycemia, without long-term current use of insulin E11.65 Active 00031454 Problem Pure hyperglyceridemia E78.1 Active 818809252 Problem Controlled type 2 diabetes m ellitus without complication, without long- term current use of insulin E11.9 Active 879935019 Problem Unsteady gait R26.81 Active 702524 08 Problem Chronic fatigue R53.82 Active 8422 9001 Problem Bipolar I disorder with depression F31.9 Active 09785350 Problem Chronic post-traumatic stress disorder (PTSD) F43. 12 Active 987118057 Problem Anemia D64.9 Active 123537951 Problem Hypopotassemia E87.6 Active 39551 004 Problem Overactive bladder N32.81 Active 2 02193687 Problem Chronic headaches R51 Active 43 4937815 Problem Anxiety F41.9 Active 41547167 Problem Acquired equinus deformity of left foot M21.6X2 Active 71384983 Problem Degenerative disc disease at L5-S1 level M51.36 Active 60039474 Problem Hypoxemia R09.02 Active 439505151 Problem Uncomplicated asthma, unspecified asthma severity J45.909 Active 592557554 Problem Morbid obesity due to excess calories E66.01 Active 553766317 ALLERGIES No Information ENCOUNTERS Encounter Location Date Diagnosis [facility] [address] [id number] [address] [place] [address] Sep, [facility] [address] [id number] [address] [place] [address] Sep, [facility] [address] [id number] [address] [place] [address] Aug, [facility] [address] [id number] [address] [place] [address] Aug, [facility] [address] [id number] [address] [place] [address] Aug, [facility] [address] [id number] [address] [place] [address] Aug, [facility] [address] [id number] [address] [place] [address] Aug, Acute pain of left wrist M25 .532 and Type 2 diabetes mellitus with hyperglycemia, without long-term current use of insulin E11.65 [facility] [address] [id number] [address] [place] [address] Aug, [facility] [address] [id number] [address] [place] [address] Aug, [facility] [address] [id number] [address] [place] [address] Aug, Bipolar I disorder with depr ession F31.9 and Chronic post-traumatic stress disorder (PTSD) F43.12 [facility] [address] [id number] [address] [place] [phone] Aug, Degenerative disc disease at L5-S1 level M51.36 [facility] [address] [id number] [address] [place] [address] Jul, Controlled type 2 diabetes m ellitus without complication, without long-term current use of insulin E11.9 [facility] [address] [id number] [address] [place] [address] Jul, Frequent headaches R51 [facility] [address] [id number] [address] [place] [address] Jul, [facility] [address] [id number] [address] [place] [address] 19 Jul, 2018 Bipolar I disorder with depr ession F31.9 and Chronic post-traumatic stress disorder (PTSD) F43.12 [facility] [address] [place] [id number] [place] [address] 10 Jul, 2018 Degenerative disc disease at L5-S1 level M51.36 [facility] [address] [address] 07 Jul, 2018 Other chronic pain G89.29 ; Dysuria R30.0 ; Degenerative disc disease at L5-S1 level M51.36 ; Uncomplicated asthma, unspecified asthma severity J45.909 ; Vagina, candidiasis B37.3 ; Glucose found in urine on examination R81 ; Family history of diabetes mellitus Z83.3 and Controlled type 2 diabetes mellitus without complication, without long-term current use of insulin E11.9 [facility] [address] [address] Jun, Degenerative disc disease at L5-S1 level M51.36 [facility] [address] [address] Jun, [place] [address] [address] Jun, Medicare annual wellness vis it, initial Z00.00 [facility] [address] [place] [id number] [address] [place] [phone] Jun, Degenerative disc disease at L5-S1 level M51.36 [facility] [address] [place] [id number] [address] [place] [address] Jun, Bipolar I disorder with depr ession F31.9 and Chronic post-traumatic stress disorder (PTSD) F43.12 [facility] [address] [place] [id number] [address] [place] [address] Jun, Degenerative disc disease at L5-S1 level M51.36 [place] [facility] [address] [address] Jun, Degenerative disc disease at L5-S1 level M51.36 [facility] [address] [id number] [address] [place] [phone] May, [facility] [address] [id number] [address] [place] [address] May, Degenerative disc disease at L5-S1 level M51.36 [facility] [address] [id number] [address] [place] [address] Apr, Degenerative disc disease at L5-S1 level M51.36 [facility] [address] [id number] [address] [place] [address] 18 Apr, 2018 Unsteady gait R26.81 ; Chron ic fatigue R53.82 ; SOB (shortness of breath) R06.02 and Moderate persistent asthma with exacerbation J45.41 [facility] [address] [id number] [address] [place] [address] Apr, Degenerative disc disease at L5-S1 level M51.36 [facility] [address] [id number] [address] [place] [address] 05 Apr, 2018 Medicare annual wellness vis it, initial Z00.00 [facility] [address] [id number] [address] [place] [address] 10 Mar, 2018 [facility] [address] [id number] [address] [place] [address] March, [facility] [address] [place] [id number] [address] [place] [address] Feb, Medicare annual wellness vis it, initial Z00.00 ; Bipolar 1 disorder F31.9 ; Low back pain M54.5 and Other chronic pain G89.29 [facility] [address] [id number] [address] [place] [address] Jan, [facility] [address] [id number] [address] [place] [address] Dec, Frequent headaches R51 and D egenerative disc disease at L5-S1 level M51.36 [place] [address] [address] Nov, [facility] [address] [address] Nov, Chronic intractable headache , unspecified headache type R51 [facility] [address] [address] Nov, Chronic headaches R51 and BM I 45.0-49.9, adult Z68.42 [place] [address] [address] Nov, [facility] [facility] [address] [address] Nov, Obesity, morbid E66.01 ; Unc omplicated asthma, unspecified asthma severity J45.909 ; Anxiety F41.9 ; Pure hyperglyceridemia E78.1 and Family history of diabetes mellitus Z83.3 [facility] [address] [address] Oct, Bronchitis J40 [facility] [address] [address] Oct, Chronic headaches R51 [facility] [address] [address] Sep, [facility] [address] [address] Sep, Chronic headaches R51 ; Othe r chronic pain G89.29 ; Anemia D64.9 and Obesity, morbid E66.01 [place] [address] [address] Aug, Acute suppurative otitis med ia of right ear without spontaneous rupture of tympanic membrane, recurrence not specified H66.001 [place] [address] [address] Aug, Other chronic pain G89.29 [facility] [address] [id number] [address] [place] [address] 18 Jul, 2017 Degenerative disc disease at L5-S1 level M51.36 [facility] [address] [id number] [address] [place] [address] 07 Jul, 2017 Other chronic pain G89.29 an d Sprain of deltoid ligament of left ankle, subsequent encounter S93.422D [facility] [address] [id number] [address] [place] [address] 05 Jul, 2017 Degenerative disc disease at L5-S1 level M51.36 [facility] [address] [id number] [address] [place] [address] Jun, [facility] [address] [id number] [address] [place] [address] Jun, Degenerative disc disease at L5-S1 level M51.36 [facility] [address] [id number] [address] [place] [phone] Jun, [facility] [address] [id number] [address] [place] [phone] Jun, [facility] [address] [id number] [address] [place] [phone] Jun, [facility] [address] [id number] [address] [place] [address] May, [facility] [address] [id number] [address] [place] [address] May, [facility] [address] [id number] [address] [place] [address] May, Rib pain on left side R07.81 [facility] [address] [id number] [address] [place] [address] Apr, Morbid obesity due to excess calories E66.01 [facility] [address] [id number] [address] [place] [id number] Apr, Gastroenteritis K52.9 [place] [address] [address] Apr, Degenerative disc disease at L5-S1 level M51.36 [place] [address] [address] March, Degenerative disc disease at L5-S1 level M51.36 [place] [address] [address] March, Bipolar 1 disorder F31.9 ; A nemia D64.9 ; Hypopotassemia E87.6 ; Uncomplicated asthma, unspecified asthma severity J45.909 ; Anxiety F41.9 ; Chronic headaches R51 and Degenerative disc disease at L5-S1 level M51.36 [place] [address] [address] March, Degenerative disc disease at L5-S1 level M51.36 [place] [address] [address] March, Degenerative disc disease at L5-S1 level M51.36 [place] [address] [address] March, Uncomplicated asthma, unspec ified asthma severity J45.909 ; Hypoxemia R09.02 ; Chronic headaches R51 and Degenerative disc disease at L5-S1 level M51.36 [place] [address] [address] March, [place] [address] [address] Feb, Acquired equinus deformity o f left foot M21.6X2 [place] [address] [address] Feb, Degenerative disc disease at L5-S1 level M51.36 [place] [address] [address] Feb, Degenerative disc disease at L5-S1 level M51.36 [facility] [address] [id number] [address] [place] [address] Jan, Degenerative disc disease at L5-S1 level M51.36 [facility] [address] [id number] [address] [place] [phone] Jan, Degenerative disc disease at L5-S1 level M51.36 [facility] [address] [id number] [address] [place] [address] Dec, Degenerative disc disease at L5-S1 level M51.36 [facility] [address] [id number] [address] [place] [phone] Dec, Overactive bladder N32.81 an d Degenerative disc disease at L5-S1 level M51.36 [facility] [address] [id number] [address] [place] [address] Dec, Degenerative disc disease at L5-S1 level M51.36 [facility] [address] [id number] [address] [place] [address] Dec, Degenerative disc disease at L5-S1 level M51.36 [facility] [address] [id number] [address] [place] [address] Nov, [facility] [address] [id number] [address] [place] [address] Nov, Chronic headaches R51 [facility] [address] [id number] [address] [place] [phone] Nov, Degenerative disc disease at L5-S1 level M51.36 [facility] [address] [id number] [address] [place] [address] Nov, Left upper quadrant pain R10 .12 [facility] [address] [id number] [address] [place] [address] Nov, Degenerative disc disease at L5-S1 level M51.36 [facility] [address] [address] Nov, Degenerative disc disease at L5-S1 level M51.36 [facility] [address] [address] Nov, Degenerative disc disease at L5-S1 level M51.36 [facility] [address] [address] Nov, Degenerative disc disease at L5-S1 level M51.36 [facility] [address] [address] Nov, Degenerative disc disease at L5-S1 level M51.36 [place] [address] [address] Oct, Degenerative disc disease at L5-S1 level M51.36 [place] [address] [address] Sep, Degenerative disc disease at L5-S1 level M51.36 [place] [address] [address] Sep, Degenerative disc disease at L5-S1 level M51.36 ; Bipolar 1 disorder F31.9 ; Chronic headaches R51 ; Hypopotassemia E87.6 ; Uncomplicated asthma, unspecified asthma severity J45.909 ; Anxiety F41.9 ; Overactive bladder N32.81 and Anemia D64.9 [place] [address] [address] Sep, Degenerative disc disease at L5-S1 level M51.36 [facility] [address] [address] Aug, [place] [address] [address] Aug, Degenerative disc disease at L5-S1 level M51.36 ; Chronic headaches R51 ; Bipolar 1 disorder F31.9 ; Overactive bladder N32.81 ; Anxiety F41.9 and Anemia D64.9 [facility] [address] [id number] [address] [place] [address] 24 Aug, 2016 Degenerative disc disease at L5-S1 level M51.36 [facility] [address] [id number] [place] [address] 18 Aug, 2016 [facility] [address] [place] [id number] [place] [address] 14 Aug, 2016 [facility] [address] [id number] [place] [address] 10 Aug, 2016 Degenerative disc disease at L5-S1 level M51.36 [facility] [address] [address] 28 Jul, 2016 Degenerative disc disease at L5-S1 level M51.36 [facility] [address] [address] 27 Jul, 2016 [facility] [address] [address] 23 Jul, 2016 [facility] [address] [address] 22 Jul, 2016 Degenerative disc disease at L5-S1 level M51.36 ; Pure hyperglyceridemia E78.1 ; Bipolar 1 disorder F31.9 ; Anemia D64.9 ; Overactive bladder N32.81 ; Hypopotassemia E87.6 ; Anxiety F41.9 ; Mild intermittent asthma without complication J45.20 and Chronic headaches R51 [facility] [id number] [place] [address] 15 Jul, 2016 [facility] [address] [address] 07 Jul, 2016 [facility] [address] [place] [id number] [place] [address] Jun, [facility] [address] [place] [id number] [place] [address] Jun, Bipolar 1 disorder F31.9 ; A nxiety F41.9 ; Overactive bladder N32.81 ; Chronic headaches R51 ; Degenerative disc disease at L5-S1 level M51.36 ; Hypopotassemia E87.6 ; Anemia D64.9 and Morbid obesity due to excess calories E66.01 [facility] [address] [id number] [address] [place] [address] Jun, [place] [address] [place] [id number] [address] [place] [address] May, Overactive bladder N32.81 [place] [address] [place] [id number] [address] [place] [address] May, Bipolar 1 disorder F31.9 ; A nemia D64.9 ; Overactive bladder N32.81 ; Chronic headaches R51 ; Hypopotassemia E87.6 ; Degenerative disc disease at L5-S1 level M51.36 and Uncomplicated asthma, unspecified asthma severity J45.909 [facility] [address] [place] [id number] [address] [place] [address] May, [place] [address] [place] [id number] [address] [place] [address] May, Chronic headaches R51 [facility] [facility] [address] [place] [id number] [place] [address] Apr, Chronic headaches R51 [place] [address] [place] [id number] [place] [address] March, Chronic headaches R51 [facility] [address] [id number] [place] [address] March, [place] [address] [place] [id number] [address] [place] [address] Feb, Chronic headaches R51 and De generative disc disease at L5-S1 level M51.36 [facility] [address] [id number] [address] [place] [address] Feb, Hypopotassemia E87.6 ; Anemi a D64.9 ; Overactive bladder N32.81 ; Chronic headaches R51 and Degenerative disc disease at L5-S1 level M51.36 [place] [id number] [place] [address] 07 Feb, 2016 Bipolar 1 disorder F31.9 ; A nemia D64.9 and Overactive bladder N32.81 [place] [address] [place] [id number] [address] [place] [address] 06 Feb, 2016 Scabies B86 ; Bipolar 1 diso rder F31.9 ; Anemia D64.9 ; Overactive bladder N32.81 ; Chronic headaches R51 ; Degenerative disc disease at L5-S1 level M51.36 and Wellness examination Z00.00 [place] [address] [place] [id number] [address] [place] [address] 17 Feb, 2009 [place] [address] [place] [id number] [address] [place] [address] Oct, IMMUNIZATIONS No Known Immunizations SOCIAL HISTORY Never Assessed REASON FOR VISIT med request PLAN OF CARE VITAL SIGNS MEDICATIONS Medication Instructions Dosage Frequency Start Date End Date Duration S tatus Tessalon Perles 100 mg Orally Three times a day 1 capsule as needed 8h Aug, Active RESULTS No Results PROCEDURES No Known [...] interstem replaced 05/2016 Hospitalization History [facility]- Headache 12/18/2017
--- OUTSIDE RECORDS SUMMARY | 2019-11-27 06:42 | XMS REPORT ---
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9 Active 870270411 Problem Unsteady gait R26.81 Active 407314 08 Problem Chronic fatigue R53.82 Active 8422 9001 Problem Bipolar I disorder with depression F31.9 Active 96556426 Problem Chronic post-traumatic stress disorder (PTSD) F43. 12 Active 866077979 Problem Anemia D64.9 Active 583354827 Problem Hypopotassemia E87.6 Active 86414 004 Problem Overactive bladder N32.81 Active 2 69982222 Problem Chronic headaches R51 Active 43 2362609 Problem Anxiety F41.9 Active 26431686 Problem Acquired equinus deformity of left foot M21.6X2 Active 51474903 Problem Degenerative disc disease at L5-S1 level M51.36 Active 90683294 Problem Hypoxemia R09.02 Active 178439095 Problem Uncomplicated asthma, unspecified asthma severity J45.909 Active 967005405 Problem Morbid obesity due to excess calories E66.01 Active 359691705 ALLERGIES No Information ENCOUNTERS Encounter Location Date Diagnosis [facility] [place] [address] [facility] [id number] [address] [place] [phone] Sep, [facility] [place] [address] [facility] [id number] [address] [place] [id number] Sep, [facility] [place] [address] [id number] [address] [place] [id number] Aug, [facility] [place] [address] [id number] [address] [place] [id number] Aug, [facility] [place] [address] [id number] [address] [place] [id number] Aug, [facility] [place] [address] [id number] [address] [place] [id number] Aug, [facility] [place] [address] [id number] [address] [place] [address] Aug, Acute pain of left wrist M25 .532 and Type 2 diabetes mellitus with hyperglycemia, without long-term current use of insulin E11.65 [facility] [place] [address] [id number] [address] [place] [id number] Aug, [facility] [place] [address] [id number] [address] [place] [id number] Aug, [facility] [place] [address] [id number] [address] [place] [id number] Aug, Bipolar I disorder with depr ession F31.9 and Chronic post-traumatic stress disorder (PTSD) F43.12 [facility] [place] [address] [id number] [address] [place] [id number] Aug, Degenerative disc disease at L5-S1 level M51.36 [facility] [place] [address] [id number] [address] [place] [id number] Jul, Controlled type 2 diabetes m ellitus without complication, without long-term current use of insulin E11.9 [facility] [place] [address] [id number] [address] [place] [id number] Jul, Frequent headaches R51 [facility] [place] [address] [id number] [address] [place] [id number] Jul, [facility] [place] [address] [place] [id number] [address] [place] [id number] 19 Jul, 2018 Bipolar I disorder with depr ession F31.9 and Chronic post-traumatic stress disorder (PTSD) F43.12 [place] [address] [place] [id number] [place] [address] 10 Jul, 2018 Degenerative disc disease at L5-S1 level M51.36 [place] [address] [address] 07 Jul, 2018 Other chronic pain G89.29 ; Dysuria R30.0 ; Degenerative disc disease at L5-S1 level M51.36 ; Uncomplicated asthma, unspecified asthma severity J45.909 ; Vagina, candidiasis B37.3 ; Glucose found in urine on examination R81 ; Family history of diabetes mellitus Z83.3 and Controlled type 2 diabetes mellitus without complication, without long-term current use of insulin E11.9 [place] [address] [address] Jun, Degenerative disc disease at L5-S1 level M51.36 [place] [address] [address] Jun, [place] [address] [id number] Jun, Medicare annual wellness vis it, initial Z00.00 [place] [address] [place] [id number] [address] [place] [id number] Jun, Degenerative disc disease at L5-S1 level M51.36 [place] [address] [place] [id number] [address] [place] [id number] Jun, Bipolar I disorder with depr ession F31.9 and Chronic post-traumatic stress disorder (PTSD) F43.12 [place] [address] [place] [id number] [address] [place] [id number] Jun, Degenerative disc disease at L5-S1 level M51.36 [place] [address] [address] Jun, Degenerative disc disease at L5-S1 level M51.36 [facility] [place] [address] [facility] [id number] [address] [place] [id number] May, [facility] [place] [address] [facility] [id number] [address] [place] [id number] May, Degenerative disc disease at L5-S1 level M51.36 [facility] [place] [address] [facility] [id number] [address] [place] [address] Apr, Degenerative disc disease at L5-S1 level M51.36 [place] [address] [facility] [id number] [address] [place] [id number] 18 Apr, 2018 Unsteady gait R26.81 ; Chron ic fatigue R53.82 ; SOB (shortness of breath) R06.02 and Moderate persistent asthma with exacerbation J45.41 [place] [address] [facility] [id number] [address] [place] [address] Apr, Degenerative disc disease at L5-S1 level M51.36 [place] [address] [facility] [id number] [address] [place] [id number] 05 Apr, 2018 Medicare annual wellness vis it, initial Z00.00 [place] [address] [facility] [id number] [address] [place] [id number] 10 Mar, 2018 [place] [address] [facility] [id number] [address] [place] [phone] March, [place] [address] [place] [id number] [address] [place] [address] Feb, Medicare annual wellness vis it, initial Z00.00 ; Bipolar 1 disorder F31.9 ; Low back pain M54.5 and Other chronic pain G89.29 [place] [address] [facility] [id number] [address] [place] [address] Jan, [place] [address] [facility] [id number] [address] [place] [id number] Dec, Frequent headaches R51 and D egenerative disc disease at L5-S1 level M51.36 [place] [address] [address] Nov, [facility] [address] [address] Nov, Chronic intractable headache , unspecified headache type R51 [facility] [address] [address] Nov, Chronic headaches R51 and BM I 45.0-49.9, adult Z68.42 [place] [address] [address] Nov, [place] [address] [address] Nov, Obesity, morbid E66.01 ; Unc omplicated asthma, unspecified asthma severity J45.909 ; Anxiety F41.9 ; Pure hyperglyceridemia E78.1 and Family history of diabetes mellitus Z83.3 [place] [address] [address] Oct, Bronchitis J40 [place] [address] [address] Oct, Chronic headaches R51 [place] [address] [address] Sep, [place] [address] [address] Sep, Chronic headaches R51 ; Othe r chronic pain G89.29 ; Anemia D64.9 and Obesity, morbid E66.01 [place] [address] [address] Aug, Acute suppurative otitis med ia of right ear without spontaneous rupture of tympanic membrane, recurrence not specified H66.001 [place] [address] [address] Aug, Other chronic pain G89.29 [facility] [place] [address] [id number] [address] [place] [id number] 18 Jul, 2017 Degenerative disc disease at L5-S1 level M51.36 [facility] [place] [address] [id number] [address] [place] [id number] 07 Jul, 2017 Other chronic pain G89.29 an d Sprain of deltoid ligament of left ankle, subsequent encounter S93.422D [facility] [place] [address] [id number] [address] [place] [id number] 05 Jul, 2017 Degenerative disc disease at L5-S1 level M51.36 [facility] [place] [address] [id number] [address] [place] [id number] Jun, [facility] [place] [address] [id number] [address] [place] [id number] Jun, Degenerative disc disease at L5-S1 level M51.36 [facility] [place] [address] [id number] [address] [place] [id number] Jun, [facility] [place] [address] [id number] [address] [place] [id number] Jun, [facility] [place] [address] [id number] [address] [place] [id number] Jun, [facility] [place] [address] [id number] [address] [place] [phone] May, [facility] [place] [address] [id number] [address] [place] [phone] May, [facility] [place] [address] [id number] [address] [place] [id number] May, Rib pain on left side R07.81 [facility] [place] [address] [id number] [address] [place] [id number] Apr, Morbid obesity due to excess calories E66.01 [facility] [place] [address] [id number] [address] [place] [id number] Apr, Gastroenteritis K52.9 [place] [address] [address] Apr, Degenerative disc disease at L5-S1 level M51.36 [place] [address] [address] March, Degenerative disc disease at L5-S1 level M51.36 [place] [address] [address] March, Bipolar 1 disorder F31.9 ; A nemia D64.9 ; Hypopotassemia E87.6 ; Uncomplicated asthma, unspecified asthma severity J45.909 ; Anxiety F41.9 ; Chronic headaches R51 and Degenerative disc disease at L5-S1 level M51.36 [place] [address] [address] March, Degenerative disc disease at L5-S1 level M51.36 [place] [address] [address] March, Degenerative disc disease at L5-S1 level M51.36 [place] [address] [address] March, Uncomplicated asthma, unspec ified asthma severity J45.909 ; Hypoxemia R09.02 ; Chronic headaches R51 and Degenerative disc disease at L5-S1 level M51.36 [place] [address] [address] March, [place] [address] [address] Feb, Acquired equinus deformity o f left foot M21.6X2 [place] [address] [address] Feb, Degenerative disc disease at L5-S1 level M51.36 [place] [address] [address] Feb, Degenerative disc disease at L5-S1 level M51.36 [facility] [place] [address] [id number] [address] [place] [id number] Jan, Degenerative disc disease at L5-S1 level M51.36 [facility] [place] [address] [id number] [address] [place] [id number] Jan, Degenerative disc disease at L5-S1 level M51.36 [facility] [place] [address] [id number] [address] [place] [id number] Dec, Degenerative disc disease at L5-S1 level M51.36 [facility] [place] [address] [id number] [address] [place] [id number] Dec, Overactive bladder N32.81 an d Degenerative disc disease at L5-S1 level M51.36 [facility] [place] [address] [id number] [address] [place] [id number] Dec, Degenerative disc disease at L5-S1 level M51.36 [facility] [place] [address] [id number] [address] [place] [id number] Dec, Degenerative disc disease at L5-S1 level M51.36 [facility] [place] [address] [id number] [address] [place] [id number] Nov, [facility] [place] [address] [facility] [id number] [address] [place] [id number] Nov, Chronic headaches R51 [facility] [place] [address] [id number] [address] [place] [id number] Nov, Degenerative disc disease at L5-S1 level M51.36 [facility] [place] [address] [id number] [address] [place] [id number] Nov, Left upper quadrant pain R10 .12 [facility] [place] [address] [id number] [address] [place] [id number] Nov, Degenerative disc disease at L5-S1 level M51.36 [facility] [place] [address] [address] Nov, Degenerative disc disease at L5-S1 level M51.36 [facility] [place] [address] [address] Nov, Degenerative disc disease at L5-S1 level M51.36 [facility] [place] [address] [address] Nov, Degenerative disc disease at L5-S1 level M51.36 [facility] [place] [address] [address] Nov, Degenerative disc disease at L5-S1 level M51.36 [place] [address] [address] Oct, Degenerative disc disease at L5-S1 level M51.36 [place] [address] [address] Sep, Degenerative disc disease at L5-S1 level M51.36 [place] [address] [address] Sep, Degenerative disc disease at L5-S1 level M51.36 ; Bipolar 1 disorder F31.9 ; Chronic headaches R51 ; Hypopotassemia E87.6 ; Uncomplicated asthma, unspecified asthma severity J45.909 ; Anxiety F41.9 ; Overactive bladder N32.81 and Anemia D64.9 [place] [address] [address] Sep, Degenerative disc disease at L5-S1 level M51.36 [facility] [place] [address] [address] Aug, [place] [address] [address] Aug, Degenerative disc disease at L5-S1 level M51.36 ; Chronic headaches R51 ; Bipolar 1 disorder F31.9 ; Overactive bladder N32.81 ; Anxiety F41.9 and Anemia D64.9 [facility] [place] [address] [place] [id number] [address] [place] [id number] 24 Aug, 2016 Degenerative disc disease at L5-S1 level M51.36 [facility] [place] [address] [place] [id number] [place] [address] 18 Aug, 2016 [facility] [place] [address] [place] [id number] [place] [address] 14 Aug, 2016 [facility] [place] [address] [place] [id number] [place] [address] 10 Aug, 2016 Degenerative disc disease at L5-S1 level M51.36 [facility] [place] [address] [address] 28 Jul, 2016 Degenerative disc disease at L5-S1 level M51.36 [facility] [place] [address] [address] 27 Jul, 2016 [facility] [place] [address] [address] 23 Jul, 2016 [facility] [place] [address] [address] 22 Jul, 2016 Degenerative disc disease at L5-S1 level M51.36 ; Pure hyperglyceridemia E78.1 ; Bipolar 1 disorder F31.9 ; Anemia D64.9 ; Overactive bladder N32.81 ; Hypopotassemia E87.6 ; Anxiety F41.9 ; Mild intermittent asthma without complication J45.20 and Chronic headaches R51 [facility] [place] [id number] [place] [address] 15 Jul, 2016 [facility] [place] [address] [address] 07 Jul, 2016 [facility] [place] [address] [place] [id number] [place] [id number] Jun, [facility] [place] [address] [place] [id number] [place] [address] Jun, Bipolar 1 disorder F31.9 ; A nxiety F41.9 ; Overactive bladder N32.81 ; Chronic headaches R51 ; Degenerative disc disease at L5-S1 level M51.36 ; Hypopotassemia E87.6 ; Anemia D64.9 and Morbid obesity due to excess calories E66.01 [facility] [place] [address] [facility] [id number] [address] [place] [phone] Jun, [place] [address] [place] [id number] [address] [place] [address] May, Overactive bladder N32.81 [place] [address] [place] [id number] [address] [place] [address] May, Bipolar 1 disorder F31.9 ; A nemia D64.9 ; Overactive bladder N32.81 ; Chronic headaches R51 ; Hypopotassemia E87.6 ; Degenerative disc disease at L5-S1 level M51.36 and Uncomplicated asthma, unspecified asthma severity J45.909 [place] [address] [place] [id number] [address] [place] [address] May, [place] [address] [place] [id number] [address] [place] [address] May, Chronic headaches R51 [place] [address] [place] [id number] [address] [place] [address] Apr, Chronic headaches R51 [place] [address] [place] [id number] [address] [place] [id number] March, Chronic headaches R51 [facility] [place] [address] [place] [id number] [address] [place] [id number] March, [place] [address] [place] [id number] [address] [place] [address] Feb, Chronic headaches R51 and De generative disc disease at L5-S1 level M51.36 [facility] [place] [address] [place] [id number] [address] [place] [id number] Feb, Hypopotassemia E87.6 ; Anemi a D64.9 ; Overactive bladder N32.81 ; Chronic headaches R51 and Degenerative disc disease at L5-S1 level M51.36 [place] [address] [place] [address] 07 Feb, 2016 Bipolar 1 disorder F31.9 ; A nemia D64.9 and Overactive bladder N32.81 [place] [address] [address] [place] [id number] [address] [place] [address] 06 Feb, 2016 Scabies B86 ; Bipolar 1 diso rder F31.9 ; Anemia D64.9 ; Overactive bladder N32.81 ; Chronic headaches R51 ; Degenerative disc disease at L5-S1 level M51.36 and Wellness examination Z00.00 [place] [address] [place] [id number] [address] [place] [address] 17 Feb, 2009 [place] [address] [place] [id number] [address] [place] [id number] Oct, IMMUNIZATIONS No Known Immunizations SOCIAL HISTORY Never Assessed REASON FOR VISIT bronchitis PLAN OF CARE VITAL SIGNS MEDICATIONS Medication Instructions Dosage Frequency Start Date End Date Duration S tatus PredniSONE 20 mg Orally Once a day 2 tablets 24h Aug, Aug, 5 days Active Doxycycline Hyclate 100 mg Orally Twice a day 1 capsule 12h 2 5 Aug, 2018 Sep, 10 day(s) Active RESULTS No Results PROCEDURES No Known [...] interstem replaced 05/2016 Hospitalization History [facility] [place]- Headache 12/18/2017
--- OUTSIDE RECORDS SUMMARY | 2019-11-27 06:42 | XMS REPORT ---
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9 Active 863650202 Problem Unsteady gait R26.81 Active 708417 08 Problem Chronic fatigue R53.82 Active 8422 9001 Problem Bipolar I disorder with depression F31.9 Active 79321786 Problem Chronic post-traumatic stress disorder (PTSD) F43. 12 Active 793393594 Problem Anemia D64.9 Active 256689817 Problem Hypopotassemia E87.6 Active 86421 004 Problem Overactive bladder N32.81 Active 2 60465701 Problem Chronic headaches R51 Active 43 3108422 Problem Anxiety F41.9 Active 77028804 Problem Acquired equinus deformity of left foot M21.6X2 Active 03709130 Problem Degenerative disc disease at L5-S1 level M51.36 Active 20454706 Problem Hypoxemia R09.02 Active 180237442 Problem Uncomplicated asthma, unspecified asthma severity J45.909 Active 580427047 Problem Morbid obesity due to excess calories E66.01 Active 652778427 ALLERGIES No Information ENCOUNTERS Encounter Location Date Diagnosis [facility] [address] [facility] [id number] [address] [place] [address] Sep, [facility] [address] [facility] [id number] [address] [place] [address] Sep, [facility] [address] [id number] [address] [place] [address] Aug, [facility] [address] [id number] [address] [place] [address] Aug, [facility] [address] [id number] [address] [place] [address] Aug, Acute pain of left wrist M25 .532 and Type 2 diabetes mellitus with hyperglycemia, without long-term current use of insulin E11.65 [facility] [address] [id number] [address] [place] [address] Aug, [facility] [address] [id number] [address] [place] [address] Aug, [facility] [address] [id number] [address] [place] [address] Aug, Bipolar I disorder with depr ession F31.9 and Chronic post-traumatic stress disorder (PTSD) F43.12 [facility] [address] [id number] [address] [place] [address] Aug, Degenerative disc disease at L5-S1 level M51.36 [facility] [address] [id number] [address] [place] [address] Jul, Controlled type 2 diabetes m ellitus without complication, without long-term current use of insulin E11.9 [facility] [address] [id number] [address] [place] [address] Jul, Frequent headaches R51 [facility] [address] [id number] [address] [place] [address] Jul, [facility] [address] [id number] [address] [place] [address] Jul, Bipolar I disorder with depr ession F31.9 and Chronic post-traumatic stress disorder (PTSD) F43.12 [facility] [address] [id number] [address] [place] [address] Jul, [facility] [address] [facility] [id number] [address] [place] [address] Jul, Other chronic pain G89.29 ; Dysuria R30.0 ; Degenerative disc disease at L5-S1 level M51.36 ; Uncomplicated asthma, unspecified asthma severity J45.909 ; Vagina, candidiasis B37.3 ; Glucose found in urine on examination R81 ; Family history of diabetes mellitus Z83.3 and Controlled type 2 diabetes mellitus without complication, without long-term current use of insulin E11.9 [facility] [address] [facility] [id number] [address] [place] [address] Jun, Degenerative disc disease at L5-S1 level M51.36 [place] [address] [facility] [id number] [address] [place] [address] Jun, [place] [address] [place] [id number] [address] [place] [address] Jun, Medicare annual wellness vis it, initial Z00.00 [facility] [address] [facility] [id number] [address] [place] [address] Jun, [facility] [address] [facility] [id number] [address] [place] [address] Jun, Bipolar I disorder with depr ession F31.9 and Chronic post-traumatic stress disorder (PTSD) F43.12 [facility] [address] [facility] [id number] [address] [place] [address] Jun, Degenerative disc disease at L5-S1 level M51.36 [facility] [address] [facility] [id number] [address] [place] [address] Jun, [facility] [address] [facility] [id number] [address] [place] [address] May, [facility] [address] [facility] [id number] [address] [place] [address] May, [facility] [address] [facility] [id number] [address] [place] [address] Apr, Degenerative disc disease at L5-S1 level M51.36 [place] [address] [id number] [address] [place] [address] 18 Apr, 2018 Unsteady gait R26.81 ; Chron ic fatigue R53.82 ; SOB (shortness of breath) R06.02 and Moderate persistent asthma with exacerbation J45.41 [place] [address] [facility] [id number] [address] [place] [address] 13 Apr, 2018 Degenerative disc disease at L5-S1 level M51.36 [place] [address] [id number] [address] [place] [address] 05 Apr, 2018 Medicare annual wellness vis it, initial Z00.00 [place] [address] [facility] [id number] [address] [place] [address] March, [place] [address] [facility] [id number] [address] [place] [address] March, [place] [address] [facility] [id number] [address] [place] [address] Feb, Medicare annual wellness vis it, initial Z00.00 ; Bipolar 1 disorder F31.9 ; Low back pain M54.5 and Other chronic pain G89.29 [place] [address] [facility] [id number] [address] [place] [address] Jan, [place] [address] [facility] [id number] [address] [place] [address] Dec, Frequent headaches R51 and D egenerative disc disease at L5-S1 level M51.36 [place] [address] [facility] [id number] [address] [place] [address] Nov, [facility] [address] [facility] [id number] [address] [place] [address] Nov, Chronic intractable headache , unspecified headache type R51 [facility] [address] [facility] [id number] [address] [place] [address] Nov, Chronic headaches R51 and BM I 45.0-49.9, adult Z68.42 [place] [address] [address] Nov, [place] [address] [address] Nov, Obesity, morbid E66.01 ; Unc omplicated asthma, unspecified asthma severity J45.909 ; Anxiety F41.9 ; Pure hyperglyceridemia E78.1 and Family history of diabetes mellitus Z83.3 [place] [address] [address] Oct, Bronchitis J40 [place] [address] [address] 06 Oct, 2017 Chronic headaches R51 [place] [address] [address] Sep, [place] [address] [address] Sep, Chronic headaches R51 ; Othe r chronic pain G89.29 ; Anemia D64.9 and Obesity, morbid E66.01 [place] [address] [address] 12 Aug, 2017 Acute suppurative otitis med ia of right ear without spontaneous rupture of tympanic membrane, recurrence not specified H66.001 [place] [address] [address] 11 Aug, 2017 Other chronic pain G89.29 [place] [address] [address] 18 Jul, 2017 Degenerative disc disease at L5-S1 level M51.36 [place] [address] [address] 07 Jul, 2017 Other chronic pain G89.29 an d Sprain of deltoid ligament of left ankle, subsequent encounter S93.422D [place] [address] [id number] [address] [place] [address] Jul, Degenerative disc disease at L5-S1 level M51.36 [facility] [address] [id number] [address] [place] [address] Jun, [facility] [address] [id number] [address] [place] [address] Jun, Degenerative disc disease at L5-S1 level M51.36 [facility] [address] [id number] [address] [place] [address] Jun, [facility] [address] [id number] [address] [place] [address] Jun, [facility] [address] [id number] [address] [place] [address] Jun, [facility] [address] [id number] [address] [place] [address] May, [facility] [address] [id number] [address] [place] [address] May, [facility] [address] [id number] [address] [place] [address] May, Rib pain on left side R07.81 [facility] [address] [id number] [address] [place] [address] Apr, Morbid obesity due to excess calories E66.01 [facility] [address] [id number] [address] [place] [address] Apr, Gastroenteritis K52.9 [facility] [address] [id number] [address] [place] [address] Apr, Degenerative disc disease at L5-S1 level M51.36 [facility] [address] [id number] [address] [place] [address] March, Degenerative disc disease at L5-S1 level M51.36 [facility] [address] [address] March, Bipolar 1 disorder F31.9 ; A nemia D64.9 ; Hypopotassemia E87.6 ; Uncomplicated asthma, unspecified asthma severity J45.909 ; Anxiety F41.9 ; Chronic headaches R51 and Degenerative disc disease at L5-S1 level M51.36 [place] [address] [address] March, Degenerative disc disease at L5-S1 level M51.36 [place] [address] [address] March, Degenerative disc disease at L5-S1 level M51.36 [place] [address] [address] March, Uncomplicated asthma, unspec ified asthma severity J45.909 ; Hypoxemia R09.02 ; Chronic headaches R51 and Degenerative disc disease at L5-S1 level M51.36 [place] [address] [address] March, [place] [address] [address] Feb, Acquired equinus deformity o f left foot M21.6X2 [place] [address] [address] Feb, Degenerative disc disease at L5-S1 level M51.36 [place] [address] [address] Feb, Degenerative disc disease at L5-S1 level M51.36 [place] [address] [address] Jan, Degenerative disc disease at L5-S1 level M51.36 [place] [address] [place] [id number] [place] [address] Jan, Degenerative disc disease at L5-S1 level M51.36 [place] [address] [place] [id number] [place] [address] Dec, Degenerative disc disease at L5-S1 level M51.36 [facility] [address] [facility] [id number] [address] [place] [address] Dec, Overactive bladder N32.81 an d Degenerative disc disease at L5-S1 level M51.36 [facility] [address] [facility] [id number] [address] [place] [address] Dec, Degenerative disc disease at L5-S1 level M51.36 [facility] [address] [facility] [id number] [address] [place] [address] Dec, Degenerative disc disease at L5-S1 level M51.36 [facility] [address] [facility] [id number] [address] [place] [address] Nov, [facility] [address] [facility] [id number] [address] [place] [address] Nov, Chronic headaches R51 [facility] [address] [facility] [id number] [address] [place] [address] Nov, Degenerative disc disease at L5-S1 level M51.36 [facility] [address] [facility] [id number] [address] [place] [address] Nov, Left upper quadrant pain R10 .12 [facility] [address] [facility] [id number] [address] [place] [address] Nov, Degenerative disc disease at L5-S1 level M51.36 [facility] [address] [facility] [id number] [address] [place] [address] Nov, Degenerative disc disease at L5-S1 level M51.36 [facility] [address] [facility] [id number] [address] [place] [address] Nov, Degenerative disc disease at L5-S1 level M51.36 [facility] [address] [facility] [id number] [address] [place] [address] Nov, Degenerative disc disease at L5-S1 level M51.36 [facility] [address] [place] [id number] [address] [place] [address] Nov, Degenerative disc disease at L5-S1 level M51.36 [facility] [address] [place] [id number] [address] [place] [address] Oct, Degenerative disc disease at L5-S1 level M51.36 [facility] [address] [place] [id number] [place] [address] Sep, Degenerative disc disease at L5-S1 level M51.36 [facility] [address] [place] [id number] [address] [place] [address] Sep, Degenerative disc disease at L5-S1 level M51.36 ; Bipolar 1 disorder F31.9 ; Chronic headaches R51 ; Hypopotassemia E87.6 ; Uncomplicated asthma, unspecified asthma severity J45.909 ; Anxiety F41.9 ; Overactive bladder N32.81 and Anemia D64.9 [facility] [address] [address] Sep, Degenerative disc disease at L5-S1 level M51.36 [facility] [address] [place] [id number] [place] [address] Aug, [place] [address] [place] [id number] [place] [address] Aug, Degenerative disc disease at L5-S1 level M51.36 ; Chronic headaches R51 ; Bipolar 1 disorder F31.9 ; Overactive bladder N32.81 ; Anxiety F41.9 and Anemia D64.9 [facility] [address] [place] [id number] [address] [place] [address] Aug, Degenerative disc disease at L5-S1 level M51.36 [facility] [address] [place] [id number] [address] [place] [address] 18 Aug, 2016 [facility] [address] [place] [id number] [address] [place] [address] 14 Aug, 2016 [place] [address] [address] 10 Aug, 2016 Degenerative disc disease at L5-S1 level M51.36 [facility] [address] [address] 28 Jul, 2016 Degenerative disc disease at L5-S1 level M51.36 [facility] [address] [place] [id number] [place] [address] 27 Jul, 2016 [facility] [address] [place] [id number] [place] [address] 23 Jul, 2016 [place] [address] [address] 22 Jul, 2016 Degenerative disc disease at L5-S1 level M51.36 ; Pure hyperglyceridemia E78.1 ; Bipolar 1 disorder F31.9 ; Anemia D64.9 ; Overactive bladder N32.81 ; Hypopotassemia E87.6 ; Anxiety F41.9 ; Mild intermittent asthma without complication J45.20 and Chronic headaches R51 [place] [address] [address] 15 Jul, 2016 [place] [address] [address] 07 Jul, 2016 [place] [address] [address] Jun, [facility] [address] [address] Jun, Bipolar 1 disorder F31.9 ; A nxiety F41.9 ; Overactive bladder N32.81 ; Chronic headaches R51 ; Degenerative disc disease at L5-S1 level M51.36 ; Hypopotassemia E87.6 ; Anemia D64.9 and Morbid obesity due to excess calories E66.01 [facility] [address] [address] Jun, [facility] [address] [place] [id number] [place] [address] May, Overactive bladder N32.81 [facility] [address] [facility] [id number] [address] [place] [address] May, Bipolar 1 disorder F31.9 ; A nemia D64.9 ; Overactive bladder N32.81 ; Chronic headaches R51 ; Hypopotassemia E87.6 ; Degenerative disc disease at L5-S1 level M51.36 and Uncomplicated asthma, unspecified asthma severity J45.909 [facility] [address] [facility] [id number] [address] [place] [address] May, [facility] [address] [facility] [id number] [address] [place] [address] May, Chronic headaches R51 [facility] [address] [place] [id number] [address] [place] [address] Apr, Chronic headaches R51 [facility] [address] [place] [id number] [address] [place] [address] March, Chronic headaches R51 [facility] [address] [facility] [id number] [address] [place] [address] March, [facility] [address] [facility] [id number] [address] [place] [address] Feb, Chronic headaches R51 and De generative disc disease at L5-S1 level M51.36 [facility] [address] [facility] [id number] [address] [place] [address] Feb, Hypopotassemia E87.6 ; Anemi a D64.9 ; Overactive bladder N32.81 ; Chronic headaches R51 and Degenerative disc disease at L5-S1 level M51.36 [facility] [address] [facility] [id number] [address] [place] [address] Feb, Bipolar 1 disorder F31.9 ; A nemia D64.9 and Overactive bladder N32.81 [facility] [address] [facility] [id number] [address] [place] [address] Feb, Scabies B86 ; Bipolar 1 diso rder F31.9 ; Anemia D64.9 ; Overactive bladder N32.81 ; Chronic headaches R51 ; Degenerative disc disease at L5-S1 level M51.36 and Wellness examination Z00.00 [facility] [address] [facility] [id number] [address] [address] Feb, [facility] [address] [facility] [id number] [address] [place] [address] Oct, IMMUNIZATIONS No Known Immunizations SOCIAL HISTORY [...] interstem replaced 05/2016 Hospitalization History [facility]- Headache 12/18/2017
--- OUTSIDE RECORDS SUMMARY | 2019-11-27 06:42 | XMS REPORT ---
Author Author Tish PARSOSN Organization [facility] Address [address] [place] [address] Care Team Providers Care Security Investigator Name Role Phone JAQUELINE DONNY Unavailable PROBLEMS Type Condition ICD9-CM Code BKP06-KC Code Onset Dates Condition S tatus SNOMED Code Problem Other chronic pain G89.29 Active 8 5534577 Problem Moderate persistent asthma with exacerbation J45.4 1 Active 816712945 Problem Obesity, morbid E66.01 Active 2381 43837 Problem Type 2 diabetes mellitus wit h hyperglycemia, without long-term current use of insulin E11.65 Active 99323256 Problem Pure hyperglyceridemia E78.1 Active 252177265 Problem Controlled type 2 diabetes m ellitus without complication, without long- term current use of insulin E11.9 Active 485151638 Problem Unsteady gait R26.81 Active 930223 08 Problem Chronic fatigue R53.82 Active 8422 9001 Problem Bipolar I disorder with depression F31.9 Active 23836683 Problem Chronic post-traumatic stress disorder (PTSD) F43. 12 Active 536432245 Problem Anemia D64.9 Active 336957241 Problem Hypopotassemia E87.6 Active 31341 004 Problem Overactive bladder N32.81 Active 2 36975699 Problem Chronic headaches R51 Active 43 8613147 Problem Anxiety F41.9 Active 52971893 Problem Acquired equinus deformity of left foot M21.6X2 Active 22271270 Problem Degenerative disc disease at L5-S1 level M51.36 Active 04752862 Problem Hypoxemia R09.02 Active 459589295 Problem Uncomplicated asthma, unspecified asthma severity J45.909 Active 095153406 Problem Morbid obesity due to excess calories E66.01 Active [id number] ALLERGIES No Information ENCOUNTERS Encounter Location Date Diagnosis [facility] [address] [facility] [id number] [address] [place] [phone] Sep, [facility] [address] [facility] [id number] [address] [place] [phone] Sep, [facility] [address] [id number] [address] [place] [address] Aug, Bipolar I disorder with depr ession F31.9 and Chronic post-traumatic stress disorder (PTSD) F43.12 [facility] [address] [id number] [address] [place] [phone] Aug, [facility] [address] [id number] [address] [place] [phone] Aug, [facility] [address] [id number] [address] [place] [address] Aug, Acute pain of left wrist M25 .532 and Type 2 diabetes mellitus with hyperglycemia, without long-term current use of insulin E11.65 [facility] [address] [id number] [address] [place] [phone] Aug, [facility] [address] [id number] [address] [place] [phone] Aug, [facility] [address] [id number] [address] [place] [phone] Aug, Bipolar I disorder with depr ession F31.9 and Chronic post-traumatic stress disorder (PTSD) F43.12 [facility] [address] [id number] [address] [place] [phone] Aug, Degenerative disc disease at L5-S1 level M51.36 [facility] [address] [id number] [address] [place] [address] Jul, Controlled type 2 diabetes m ellitus without complication, without long-term current use of insulin E11.9 [facility] [address] [id number] [address] [place] [phone] Jul, Frequent headaches R51 [facility] [address] [id number] [address] [place] [phone] Jul, [facility] [address] [id number] [address] [place] [phone] Jul, Bipolar I disorder with depr ession F31.9 and Chronic post-traumatic stress disorder (PTSD) F43.12 [place] [address] [facility] [id number] [address] [place] [phone] 10 Jul, 2018 Degenerative disc disease at L5-S1 level M51.36 [facility] [address] [facility] [id number] [address] [place] [phone] 07 Jul, 2018 Other chronic pain G89.29 ; Dysuria R30.0 ; Degenerative disc disease at L5-S1 level M51.36 ; Uncomplicated asthma, unspecified asthma severity J45.909 ; Vagina, candidiasis B37.3 ; Glucose found in urine on examination R81 ; Family history of diabetes mellitus Z83.3 and Controlled type 2 diabetes mellitus without complication, without long-term current use of insulin E11.9 [place] [address] [facility] [id number] [address] [place] [phone] Jun, Degenerative disc disease at L5-S1 level M51.36 [place] [address] [facility] [id number] [address] [place] [phone] Jun, [place] [address] [place] [id number] [address] [place] [id number] Jun, Medicare annual wellness vis it, initial Z00.00 [place] [address] [facility] [id number] [address] [place] [phone] Jun, Degenerative disc disease at L5-S1 level M51.36 [place] [address] [facility] [id number] [address] [place] [phone] Jun, Bipolar I disorder with depr ession F31.9 and Chronic post-traumatic stress disorder (PTSD) F43.12 [place] [address] [facility] [id number] [address] [place] [id number] Jun, Degenerative disc disease at L5-S1 level M51.36 [place] [address] [facility] [id number] [address] [place] [phone] Jun, Degenerative disc disease at L5-S1 level M51.36 [facility] [address] [facility] [id number] [address] [place] [id number] May, [facility] [address] [facility] [id number] [address] [place] [phone] May, Degenerative disc disease at L5-S1 level M51.36 [place] [address] [facility] [id number] [address] [place] [phone] Apr, Degenerative disc disease at L5-S1 level M51.36 [facility] [address] [facility] [id number] [address] [place] [address] Apr, Unsteady gait R26.81 ; Chron ic fatigue R53.82 ; SOB (shortness of breath) R06.02 and Moderate persistent asthma with exacerbation J45.41 [place] [address] [facility] [id number] [address] [place] [phone] Apr, Degenerative disc disease at L5-S1 level M51.36 [place] [address] [facility] [id number] [address] [place] [phone] 05 Apr, 2018 Medicare annual wellness vis it, initial Z00.00 [place] [address] [facility] [id number] [address] [place] [phone] 10 Mar, 2018 [place] [address] [facility] [id number] [address] [place] [phone] March, [place] [address] [place] [id number] [address] [place] [phone] Feb, Medicare annual wellness vis it, initial Z00.00 ; Bipolar 1 disorder F31.9 ; Low back pain M54.5 and Other chronic pain G89.29 [place] [address] [facility] [id number] [address] [place] [phone] Jan, [place] [address] [facility] [id number] [address] [place] [phone] Dec, Frequent headaches R51 and D egenerative disc disease at L5-S1 level M51.36 [place] [address] [address] Nov, [facility] [address] [address] Nov, Chronic intractable headache , unspecified headache type R51 [facility] [address] [id number] Nov, Chronic headaches R51 and BM I 45.0-49.9, adult Z68.42 [place] [address] [address] Nov, [place] [address] [address] Nov, Obesity, morbid E66.01 ; Unc omplicated asthma, unspecified asthma severity J45.909 ; Anxiety F41.9 ; Pure hyperglyceridemia E78.1 and Family history of diabetes mellitus Z83.3 [place] [address] [address] Oct, Bronchitis J40 [place] [address] [address] 06 Oct, 2017 Chronic headaches R51 [place] [address] [address] Sep, [place] [address] [address] Sep, Chronic headaches R51 ; Othe r chronic pain G89.29 ; Anemia D64.9 and Obesity, morbid E66.01 [place] [address] [address] Aug, Acute suppurative otitis med ia of right ear without spontaneous rupture of tympanic membrane, recurrence not specified H66.001 [place] [address] [address] Aug, Other chronic pain G89.29 [facility] [address] [id number] [address] [place] [id number] 18 Jul, 2017 Degenerative disc disease at L5-S1 level M51.36 [facility] [address] [id number] [address] [place] [id number] 07 Jul, 2017 Other chronic pain G89.29 an d Sprain of deltoid ligament of left ankle, subsequent encounter S93.422D [facility] [address] [id number] [address] [place] [phone] 05 Jul, 2017 Degenerative disc disease at L5-S1 level M51.36 [facility] [address] [id number] [address] [place] [phone] Jun, [facility] [address] [id number] [address] [place] [id number] Jun, Degenerative disc disease at L5-S1 level M51.36 [facility] [address] [id number] [address] [place] [phone] Jun, [facility] [address] [id number] [address] [place] [phone] Jun, [facility] [address] [id number] [address] [place] [phone] Jun, [facility] [address] [id number] [address] [place] [phone] May, [facility] [address] [id number] [address] [place] [phone] May, [facility] [address] [id number] [address] [place] [address] May, Rib pain on left side R07.81 [facility] [address] [id number] [address] [place] [phone] Apr, Morbid obesity due to excess calories E66.01 [facility] [address] [id number] [address] [place] [phone] Apr, Gastroenteritis K52.9 [place] [address] [address] Apr, Degenerative disc disease at L5-S1 level M51.36 [place] [address] [address] March, Degenerative disc disease at L5-S1 level M51.36 [place] [address] [address] March, Bipolar 1 disorder F31.9 ; A nemia D64.9 ; Hypopotassemia E87.6 ; Uncomplicated asthma, unspecified asthma severity J45.909 ; Anxiety F41.9 ; Chronic headaches R51 and Degenerative disc disease at L5-S1 level M51.36 [place] [address] [address] March, Degenerative disc disease at L5-S1 level M51.36 [place] [address] [address] March, Degenerative disc disease at L5-S1 level M51.36 [place] [address] [address] March, Uncomplicated asthma, unspec ified asthma severity J45.909 ; Hypoxemia R09.02 ; Chronic headaches R51 and Degenerative disc disease at L5-S1 level M51.36 [place] [address] [address] March, [place] [address] [address] Feb, Acquired equinus deformity o f left foot M21.6X2 [place] [address] [address] Feb, Degenerative disc disease at L5-S1 level M51.36 [place] [address] [address] Feb, Degenerative disc disease at L5-S1 level M51.36 [facility] [address] [id number] [address] [place] [address] Jan, Degenerative disc disease at L5-S1 level M51.36 [facility] [address] [id number] [address] [place] [phone] Jan, Degenerative disc disease at L5-S1 level M51.36 [facility] [address] [id number] [address] [place] [id number] Dec, Degenerative disc disease at L5-S1 level M51.36 [facility] [address] [id number] [address] [place] [address] Dec, Overactive bladder N32.81 an d Degenerative disc disease at L5-S1 level M51.36 [facility] [address] [facility] [id number] [address] [place] [address] Dec, Degenerative disc disease at L5-S1 level M51.36 [facility] [address] [id number] [address] [place] [id number] Dec, Degenerative disc disease at L5-S1 level M51.36 [facility] [address] [id number] [address] [place] [phone] Nov, [facility] [address] [facility] [id number] [address] [place] [phone] Nov, Chronic headaches R51 [facility] [address] [facility] [id number] [address] [place] [phone] Nov, Degenerative disc disease at L5-S1 level M51.36 [facility] [address] [id number] [address] [place] [address] Nov, Left upper quadrant pain R10 .12 [facility] [address] [facility] [id number] [address] [place] [id number] Nov, Degenerative disc disease at L5-S1 level M51.36 [facility] [address] [facility] [id number] [address] [place] [address] Nov, Degenerative disc disease at L5-S1 level M51.36 [place] [address] [place] [id number] [address] [place] [address] Nov, Degenerative disc disease at L5-S1 level M51.36 [facility] [address] [place] [id number] [address] [place] [phone] Nov, Degenerative disc disease at L5-S1 level M51.36 [place] [address] [place] [id number] [address] [place] [address] Nov, Degenerative disc disease at L5-S1 level M51.36 [place] [address] [place] [id number] [place] [address] Oct, Degenerative disc disease at L5-S1 level M51.36 [place] [address] [place] [id number] [address] [place] [address] Sep, Degenerative disc disease at L5-S1 level M51.36 [place] [address] [place] [id number] [address] [place] [address] Sep, Degenerative disc disease at L5-S1 level M51.36 ; Bipolar 1 disorder F31.9 ; Chronic headaches R51 ; Hypopotassemia E87.6 ; Uncomplicated asthma, unspecified asthma severity J45.909 ; Anxiety F41.9 ; Overactive bladder N32.81 and Anemia D64.9 [place] [address] [place] [id number] [address] [place] [address] Sep, Degenerative disc disease at L5-S1 level M51.36 [place] [address] [place] [id number] [address] [place] [address] Aug, [place] [address] [place] [id number] [address] [place] [address] Aug, Degenerative disc disease at L5-S1 level M51.36 ; Chronic headaches R51 ; Bipolar 1 disorder F31.9 ; Overactive bladder N32.81 ; Anxiety F41.9 and Anemia D64.9 [place] [address] [facility] [id number] [address] [place] [id number] 24 Aug, 2016 Degenerative disc disease at L5-S1 level M51.36 [facility] [address] [facility] [id number] [address] [place] [address] 18 Aug, 2016 [facility] [address] [place] [id number] [address] [place] [address] 14 Aug, 2016 [facility] [address] [facility] [id number] [place] [address] 10 Aug, 2016 Degenerative disc disease at L5-S1 level M51.36 [facility] [address] [place] [id number] [place] [address] 28 Jul, 2016 Degenerative disc disease at L5-S1 level M51.36 [facility] [address] [place] [id number] [address] [place] [phone] 27 Jul, 2016 [facility] [address] [place] [id number] [address] [place] [id number] 23 Jul, 2016 [facility] [address] [place] [id number] [address] [place] [address] 22 Jul, 2016 Degenerative disc disease at L5-S1 level M51.36 ; Pure hyperglyceridemia E78.1 ; Bipolar 1 disorder F31.9 ; Anemia D64.9 ; Overactive bladder N32.81 ; Hypopotassemia E87.6 ; Anxiety F41.9 ; Mild intermittent asthma without complication J45.20 and Chronic headaches R51 [facility] [address] [facility] [id number] [address] [place] [address] 15 Jul, 2016 [facility] [address] [facility] [id number] [address] [place] [phone] 07 Jul, 2016 [facility] [address] [place] [id number] [address] [place] [phone] Jun, [facility] [address] [place] [id number] [address] [place] [address] Jun, Bipolar 1 disorder F31.9 ; A nxiety F41.9 ; Overactive bladder N32.81 ; Chronic headaches R51 ; Degenerative disc disease at L5-S1 level M51.36 ; Hypopotassemia E87.6 ; Anemia D64.9 and Morbid obesity due to excess calories E66.01 [facility] [address] [facility] [id number] [address] [place] [address] Jun, [place] [address] [place] [id number] [address] [place] [address] May, Overactive bladder N32.81 [place] [address] [place] [id number] [place] [address] May, Bipolar 1 disorder F31.9 ; A nemia D64.9 ; Overactive bladder N32.81 ; Chronic headaches R51 ; Hypopotassemia E87.6 ; Degenerative disc disease at L5-S1 level M51.36 and Uncomplicated asthma, unspecified asthma severity J45.909 [place] [address] [place] [id number] [address] [place] [address] May, [place] [address] [place] [id number] [address] [place] [phone] May, Chronic headaches R51 [place] [address] [place] [id number] [place] [address] Apr, Chronic headaches R51 [place] [address] [place] [id number] [address] [place] [address] March, Chronic headaches R51 [place] [address] [place] [id number] [address] [place] [address] March, [place] [address] [facility] [id number] [address] [place] [address] Feb, Chronic headaches R51 and De generative disc disease at L5-S1 level M51.36 [place] [address] [facility] [id number] [address] [place] [address] Feb, Hypopotassemia E87.6 ; Anemi a D64.9 ; Overactive bladder N32.81 ; Chronic headaches R51 and Degenerative disc disease at L5-S1 level M51.36 [place] [id number] [place] [address] 07 Feb, 2016 Bipolar 1 disorder F31.9 ; A nemia D64.9 and Overactive bladder N32.81 [facility] [address] [place] [id number] [address] [place] [phone] 06 Feb, 2016 Scabies B86 ; Bipolar 1 diso rder F31.9 ; Anemia D64.9 ; Overactive bladder N32.81 ; Chronic headaches R51 ; Degenerative disc disease at L5-S1 level M51.36 and Wellness examination Z00.00 [place] [address] [place] [id number] [address] [place] [address] 17 Feb, 2009 [place] [address] [place] [address] Oct, IMMUNIZATIONS No Known Immunizations SOCIAL HISTORY Never Assessed REASON FOR VISIT Follow-up Bipolar/Trauma PLAN OF CARE VITAL SIGNS MEDICATIONS Unknown Medications RESULTS No Results PROCEDURES Procedure Date Ordered Result Body Site [facility] VISIT MENTAL HEALTH ESTAB PT Sep 23, 2018 Psychotherapy, patient &/family, 30 minutes, established patient Sep 23, 2018 INSTRUCTIONS MEDICATIONS ADMINISTERED No Known [...] interstem replaced 05/2016 Hospitalization History [facility]- Headache 12/18/2017
--- OUTSIDE RECORDS SUMMARY | 2019-11-27 06:42 | XMS REPORT ---
Author Author Tish NIEVES Organization [facility] Address [address] [place] [address] Care Team Providers Care Dispute Resolution Analyst Name Role Phone EZEQUIEL NIELS Unavailable PROBLEMS Type Condition ICD9-CM Code IXR42-GO Code Onset Dates Condition S tatus SNOMED Code Problem Morbid obesity due to excess calories E66.01 Active 436220662 Problem Obesity, morbid E66.01 Active 2381 21476 Problem Other chronic pain G89.29 Active 8 7521610 Problem Controlled type 2 diabetes m ellitus without complication, without long- term current use of insulin E11.9 Active 637032019 Problem Bipolar I disorder with depression F31.9 Active 90835795 Problem Chronic fatigue R53.82 Active 8422 9001 Problem Moderate persistent asthma with exacerbation J45.4 1 Active 728552575 Problem Chronic post-traumatic stress disorder (PTSD) F43. 12 Active 851855831 Problem Unsteady gait R26.81 Active 353411 08 Problem Chronic headaches R51 Active 43 0112190 Problem Anemia D64.9 Active 023492967 Problem Pure hyperglyceridemia E78.1 Active 361582538 Problem Overactive bladder N32.81 Active 2 41351689 Problem Uncomplicated asthma, unspecified asthma severity J45.909 Active 315767849 Problem Anxiety F41.9 Active 11119291 Problem Hypopotassemia E87.6 Active 77024 004 Problem Acquired equinus deformity of left foot M21.6X2 Active 42497235 Problem Degenerative disc disease at L5-S1 level M51.36 Active 02280528 Problem Hypoxemia R09.02 Active [id number] ALLERGIES No Information ENCOUNTERS Encounter Location Date Diagnosis [facility] [address] [facility] [id number] [address] [place] [address] Sep, [facility] [address] [facility] [id number] [address] [place] [address] Aug, [facility] [address] [place] [id number] [address] [place] [address] Aug, [facility] [address] [id number] [address] [place] [address] Aug, [facility] [address] [id number] [address] [place] [address] Aug, [place] [address] [id number] [address] [place] [address] Aug, [place] [address] [id number] [address] [place] [address] Aug, Bipolar I disorder with depr ession F31.9 and Chronic post-traumatic stress disorder (PTSD) F43.12 [place] [address] [id number] [address] [place] [address] Aug, Degenerative disc disease at L5-S1 level M51.36 [place] [address] [id number] [address] [place] [phone] Jul, Controlled type 2 diabetes m freedomitus without complication, without long-term current use of insulin E11.9 [place] [address] [id number] [address] [place] [address] Jul, Frequent headaches R51 [place] [address] [id number] [address] [place] [address] Jul, [place] [address] [id number] [address] [place] [phone] Jul, Bipolar I disorder with depr ession F31.9 and Chronic post-traumatic stress disorder (PTSD) F43.12 [place] [address] [id number] [address] [place] [address] Jul, [place] [address] [id number] [address] [place] [address] 07 Jul, 2018 Other chronic pain G89.29 ; Dysuria R30.0 ; Degenerative disc disease at L5-S1 level M51.36 ; Uncomplicated asthma, unspecified asthma severity J45.909 ; Vagina, candidiasis B37.3 ; Glucose found in urine on examination R81 ; Family history of diabetes mellitus Z83.3 and Controlled type 2 diabetes mellitus without complication, without long-term current use of insulin E11.9 [place] [address] [address] Jun, Degenerative disc disease at L5-S1 level M51.36 [place] [address] [address] Jun, [place] [address] [address] Jun, Medicare annual wellness vis it, initial Z00.00 [place] [address] [address] Jun, [place] [address] [address] Jun, Bipolar I disorder with depr ession F31.9 and Chronic post-traumatic stress disorder (PTSD) F43.12 [place] [address] [address] Jun, Degenerative disc disease at L5-S1 level M51.36 [place] [address] [address] Jun, [place] [address] [address] May, [place] [address] [address] May, [place] [address] [address] Apr, Degenerative disc disease at L5-S1 level M51.36 [place] [address] [place] [id number] [place] [address] Apr, Unsteady gait R26.81 ; Chron ic fatigue R53.82 ; SOB (shortness of breath) R06.02 and Moderate persistent asthma with exacerbation J45.41 [facility] [address] [id number] [address] [place] [address] 13 Apr, 2018 Degenerative disc disease at L5-S1 level M51.36 [facility] [address] [id number] [address] [place] [address] 05 Apr, 2018 Medicare annual wellness vis it, initial Z00.00 [facility] [address] [id number] [address] [place] [phone] 10 Mar, 2018 [facility] [address] [id number] [address] [place] [address] March, [facility] [address] [facility] [id number] [address] [place] [address] 11 Feb, 2018 Medicare annual wellness vis it, initial Z00.00 ; Bipolar 1 disorder F31.9 ; Low back pain M54.5 and Other chronic pain G89.29 [place] [address] [facility] [id number] [address] [place] [address] Jan, [facility] [address] [facility] [id number] [address] [place] [address] Dec, Frequent headaches R51 and D egenerative disc disease at L5-S1 level M51.36 [facility] [address] [facility] [id number] [address] [place] [address] Nov, [facility] [address] [id number] [address] [place] [address] Nov, Chronic intractable headache , unspecified headache type R51 [facility] [address] [id number] [address] [place] [address] Nov, Chronic headaches R51 and BM I 45.0-49.9, adult Z68.42 [facility] [address] [facility] [id number] [address] [place] [address] Nov, [facility] [address] [facility] [id number] [address] [place] [address] Nov, Obesity, morbid E66.01 ; Unc omplicated asthma, unspecified asthma severity J45.909 ; Anxiety F41.9 ; Pure hyperglyceridemia E78.1 and Family history of diabetes mellitus Z83.3 [place] [address] [place] [id number] [address] [place] [address] 15 Oct, 2017 Bronchitis J40 [place] [address] [address] Oct, Chronic headaches R51 [place] [address] [address] Sep, [place] [address] [address] Sep, Chronic headaches R51 ; Othe r chronic pain G89.29 ; Anemia D64.9 and Obesity, morbid E66.01 [place] [address] [address] Aug, Acute suppurative otitis med ia of right ear without spontaneous rupture of tympanic membrane, recurrence not specified H66.001 [place] [address] [address] Aug, Other chronic pain G89.29 [place] [address] [address] 18 Jul, 2017 Degenerative disc disease at L5-S1 level M51.36 [place] [address] [address] 07 Jul, 2017 Other chronic pain G89.29 an d Sprain of deltoid ligament of left ankle, subsequent encounter S93.422D [place] [address] [address] 05 Jul, 2017 Degenerative disc disease at L5-S1 level M51.36 [place] [address] [place] [id number] [address] [place] [address] Jun, [place] [address] [place] [id number] [address] [place] [address] Jun, Degenerative disc disease at L5-S1 level M51.36 [facility] [address] [facility] [id number] [address] [place] [address] Jun, [facility] [address] [facility] [id number] [address] [place] [address] Jun, [facility] [address] [facility] [id number] [address] [place] [address] Jun, [facility] [address] [facility] [id number] [address] [place] [address] May, [facility] [address] [facility] [id number] [address] [place] [address] May, [facility] [address] [place] [id number] [address] [place] [address] May, Rib pain on left side R07.81 [facility] [address] [place] [id number] [address] [place] [address] Apr, Morbid obesity due to excess calories E66.01 [facility] [address] [place] [id number] [address] [place] [address] Apr, Gastroenteritis K52.9 [place] [address] [place] [id number] [address] [place] [address] Apr, Degenerative disc disease at L5-S1 level M51.36 [facility] [address] [place] [id number] [address] [place] [address] March, Degenerative disc disease at L5-S1 level M51.36 [facility] [address] [place] [id number] [address] [place] [address] March, Bipolar 1 disorder F31.9 ; A nemia D64.9 ; Hypopotassemia E87.6 ; Uncomplicated asthma, unspecified asthma severity J45.909 ; Anxiety F41.9 ; Chronic headaches R51 and Degenerative disc disease at L5-S1 level M51.36 [place] [address] [address] March, Degenerative disc disease at L5-S1 level M51.36 [place] [address] [address] March, Degenerative disc disease at L5-S1 level M51.36 [place] [address] [address] March, Uncomplicated asthma, unspec ified asthma severity J45.909 ; Hypoxemia R09.02 ; Chronic headaches R51 and Degenerative disc disease at L5-S1 level M51.36 [place] [address] [address] March, [place] [address] [address] Feb, Acquired equinus deformity o f left foot M21.6X2 [place] [address] [address] Feb, Degenerative disc disease at L5-S1 level M51.36 [place] [address] [address] Feb, Degenerative disc disease at L5-S1 level M51.36 [place] [address] [address] Jan, Degenerative disc disease at L5-S1 level M51.36 [place] [address] [address] Jan, Degenerative disc disease at L5-S1 level M51.36 [place] [address] [address] Dec, Degenerative disc disease at L5-S1 level M51.36 [place] [address] [address] Dec, Overactive bladder N32.81 an d Degenerative disc disease at L5-S1 level M51.36 [facility] [address] [facility] [id number] [address] [place] [address] Dec, Degenerative disc disease at L5-S1 level M51.36 [facility] [address] [facility] [id number] [address] [place] [address] Dec, Degenerative disc disease at L5-S1 level M51.36 [facility] [address] [facility] [id number] [address] [place] [address] Nov, [facility] [address] [facility] [id number] [address] [place] [address] Nov, Chronic headaches R51 [facility] [address] [facility] [id number] [address] [place] [address] Nov, Degenerative disc disease at L5-S1 level M51.36 [facility] [address] [facility] [id number] [address] [place] [address] Nov, Left upper quadrant pain R10 .12 [facility] [address] [id number] [address] [place] [address] Nov, Degenerative disc disease at L5-S1 level M51.36 [facility] [address] [facility] [id number] [address] [place] [address] Nov, Degenerative disc disease at L5-S1 level M51.36 [facility] [address] [facility] [id number] [address] [place] [address] Nov, Degenerative disc disease at L5-S1 level M51.36 [facility] [address] [facility] [id number] [address] [place] [address] Nov, Degenerative disc disease at L5-S1 level M51.36 [facility] [address] [facility] [id number] [address] [place] [address] Nov, Degenerative disc disease at L5-S1 level M51.36 [facility] [address] [facility] [id number] [address] [place] [address] Oct, Degenerative disc disease at L5-S1 level M51.36 [facility] [address] [facility] [id number] [address] [place] [address] Sep, Degenerative disc disease at L5-S1 level M51.36 [facility] [address] [facility] [id number] [address] [place] [address] Sep, Degenerative disc disease at L5-S1 level M51.36 ; Bipolar 1 disorder F31.9 ; Chronic headaches R51 ; Hypopotassemia E87.6 ; Uncomplicated asthma, unspecified asthma severity J45.909 ; Anxiety F41.9 ; Overactive bladder N32.81 and Anemia D64.9 [facility] [address] [facility] [id number] [address] [place] [address] Sep, Degenerative disc disease at L5-S1 level M51.36 [facility] [address] [place] [id number] [address] [place] [address] Aug, [facility] [address] [place] [id number] [address] [place] [address] Aug, Degenerative disc disease at L5-S1 level M51.36 ; Chronic headaches R51 ; Bipolar 1 disorder F31.9 ; Overactive bladder N32.81 ; Anxiety F41.9 and Anemia D64.9 [facility] [address] [facility] [id number] [address] [place] [address] 24 Aug, 2016 Degenerative disc disease at L5-S1 level M51.36 [facility] [address] [facility] [id number] [address] [place] [address] 18 Aug, 2016 [facility] [address] [facility] [id number] [address] [place] [address] 14 Aug, 2016 [facility] [address] [facility] [id number] [address] [place] [address] 10 Aug, 2016 Degenerative disc disease at L5-S1 level M51.36 [facility] [address] [place] [id number] [address] [place] [address] 28 Jul, 2016 Degenerative disc disease at L5-S1 level M51.36 [facility] [address] [facility] [id number] [address] [place] [address] 27 Jul, 2016 [facility] [address] [facility] [id number] [place] [address] 23 Jul, 2016 [facility] [address] [facility] [id number] [place] [address] Jul, Degenerative disc disease at L5-S1 level M51.36 ; Pure hyperglyceridemia E78.1 ; Bipolar 1 disorder F31.9 ; Anemia D64.9 ; Overactive bladder N32.81 ; Hypopotassemia E87.6 ; Anxiety F41.9 ; Mild intermittent asthma without complication J45.20 and Chronic headaches R51 [facility] [address] [facility] [id number] [address] [place] [address] 15 Jul, 2016 [place] [address] [address] Jul, [facility] [address] [place] [id number] [address] [place] [address] Jun, [place] [address] [address] Jun, Bipolar 1 disorder F31.9 ; A nxiety F41.9 ; Overactive bladder N32.81 ; Chronic headaches R51 ; Degenerative disc disease at L5-S1 level M51.36 ; Hypopotassemia E87.6 ; Anemia D64.9 and Morbid obesity due to excess calories E66.01 [facility] [address] [facility] [id number] [address] [place] [address] Jun, [facility] [address] [place] [id number] [address] [place] [address] May, Overactive bladder N32.81 [facility] [address] [facility] [id number] [address] [place] [address] May, Bipolar 1 disorder F31.9 ; A nemia D64.9 ; Overactive bladder N32.81 ; Chronic headaches R51 ; Hypopotassemia E87.6 ; Degenerative disc disease at L5-S1 level M51.36 and Uncomplicated asthma, unspecified asthma severity J45.909 [facility] [address] [address] May, [facility] [address] [place] [id number] [address] [place] [address] May, Chronic headaches R51 [place] [address] [place] [id number] [place] [address] Apr, Chronic headaches R51 [place] [address] [address] March, Chronic headaches R51 [place] [address] [address] March, [place] [address] [address] Feb, Chronic headaches R51 and De generative disc disease at L5-S1 level M51.36 [place] [address] [address] Feb, Hypopotassemia E87.6 ; Anemi a D64.9 ; Overactive bladder N32.81 ; Chronic headaches R51 and Degenerative disc disease at L5-S1 level M51.36 [place] [address] [address] Feb, Bipolar 1 disorder F31.9 ; A nemia D64.9 and Overactive bladder N32.81 [place] [address] [address] Feb, Scabies B86 ; Bipolar 1 diso rder F31.9 ; Anemia D64.9 ; Overactive bladder N32.81 ; Chronic headaches R51 ; Degenerative disc disease at L5-S1 level M51.36 and Wellness examination Z00.00 [place] [address] [place] [id number] [address] [place] [address] Feb, [facility] [address] [facility] [id number] [address] [place] [address] Oct, IMMUNIZATIONS No Known Immunizations SOCIAL HISTORY Never Assessed REASON FOR VISIT PT follow-up PLAN OF CARE Activity Details Follow Up 3 Weeks Reason:F/U PT VITAL SIGNS MEDICATIONS Unknown Medications RESULTS No Results PROCEDURES Procedure Date Ordered Result Body Site THERAPEUTIC EXERCISES Aug 26, 2018 INSTRUCTIONS MEDICATIONS ADMINISTERED No Known Medications [...] interstem replaced 05/2016 Hospitalization History [facility] [place]- Headache 12/18/2017
--- OUTSIDE RECORDS SUMMARY | 2019-11-27 06:42 | XMS REPORT ---
Author Author Tish PARSONS Organization [facility] Address [address] [place] [address] Care Team Providers Care Negative Stripper Name Role Phone JAQUELINE DONNY Unavailable PROBLEMS Type Condition ICD9-CM Code LEW06-RS Code Onset Dates Condition S tatus SNOMED Code Problem Other chronic pain G89.29 Active 8 2468569 Problem Moderate persistent asthma with exacerbation J45.4 1 Active 567848374 Problem Obesity, morbid E66.01 Active 2381 22792 Problem Type 2 diabetes mellitus wit h hyperglycemia, without long-term current use of insulin E11.65 Active 38108552 Problem Pure hyperglyceridemia E78.1 Active 136286527 Problem Controlled type 2 diabetes m ellitus without complication, without long- term current use of insulin E11.9 Active 460760284 Problem Unsteady gait R26.81 Active 957714 08 Problem Chronic fatigue R53.82 Active 8422 9001 Problem Bipolar I disorder with depression F31.9 Active 48574030 Problem Chronic post-traumatic stress disorder (PTSD) F43. 12 Active 098482332 Problem Anemia D64.9 Active 727537446 Problem Hypopotassemia E87.6 Active 32463 004 Problem Overactive bladder N32.81 Active 2 91478347 Problem Chronic headaches R51 Active 43 4440858 Problem Anxiety F41.9 Active 65245587 Problem Acquired equinus deformity of left foot M21.6X2 Active 40046262 Problem Degenerative disc disease at L5-S1 level M51.36 Active 78623780 Problem Hypoxemia R09.02 Active 382266787 Problem Uncomplicated asthma, unspecified asthma severity J45.909 Active 239100718 Problem Morbid obesity due to excess calories E66.01 Active 910153065 ALLERGIES No Information ENCOUNTERS Encounter Location Date Diagnosis [facility] [address] [facility] [id number] [address] [place] [address] Sep, [facility] [address] [facility] [id number] [address] [place] [address] Sep, [facility] [address] [id number] [address] [place] [address] Aug, [facility] [address] [id number] [address] [place] [address] Aug, [facility] [address] [id number] [address] [place] [address] Aug, Acute pain of left wrist M25 .532 and Type 2 diabetes mellitus with hyperglycemia, without long-term current use of insulin E11.65 [facility] [address] [id number] [address] [place] [address] Aug, [facility] [address] [id number] [address] [place] [address] Aug, [facility] [address] [id number] [address] [place] [address] Aug, Bipolar I disorder with depr ession F31.9 and Chronic post-traumatic stress disorder (PTSD) F43.12 [facility] [address] [id number] [address] [place] [address] Aug, Degenerative disc disease at L5-S1 level M51.36 [facility] [address] [id number] [address] [place] [address] Jul, Controlled type 2 diabetes m ellitus without complication, without long-term current use of insulin E11.9 [facility] [address] [id number] [address] [place] [address] Jul, Frequent headaches R51 [facility] [address] [id number] [address] [place] [address] Jul, [facility] [address] [id number] [address] [place] [address] Jul, Bipolar I disorder with depr ession F31.9 and Chronic post-traumatic stress disorder (PTSD) F43.12 [facility] [address] [id number] [address] [place] [address] Jul, [facility] [address] [id number] [address] [place] [address] Jul, Other chronic pain G89.29 ; Dysuria R30.0 ; Degenerative disc disease at L5-S1 level M51.36 ; Uncomplicated asthma, unspecified asthma severity J45.909 ; Vagina, candidiasis B37.3 ; Glucose found in urine on examination R81 ; Family history of diabetes mellitus Z83.3 and Controlled type 2 diabetes mellitus without complication, without long-term current use of insulin E11.9 [facility] [address] [id number] [address] [place] [address] Jun, Degenerative disc disease at L5-S1 level M51.36 [facility] [address] [id number] [address] [place] [address] Jun, [facility] [address] [facility] [id number] [address] [place] [address] Jun, Medicare annual wellness vis it, initial Z00.00 [facility] [address] [id number] [address] [place] [address] Jun, [facility] [address] [id number] [address] [place] [address] Jun, Bipolar I disorder with depr ession F31.9 and Chronic post-traumatic stress disorder (PTSD) F43.12 [facility] [address] [id number] [address] [place] [address] Jun, Degenerative disc disease at L5-S1 level M51.36 [facility] [address] [id number] [address] [place] [address] Jun, [facility] [address] [id number] [address] [place] [address] May, [facility] [address] [id number] [address] [place] [address] May, [facility] [address] [facility] [id number] [address] [place] [address] Apr, Degenerative disc disease at L5-S1 level M51.36 [place] [id number] [facility] [id number] [address] [place] [address] 18 Apr, 2018 Unsteady gait R26.81 ; Chron ic fatigue R53.82 ; SOB (shortness of breath) R06.02 and Moderate persistent asthma with exacerbation J45.41 [place] [address] [facility] [id number] [address] [place] [address] 13 Apr, 2018 Degenerative disc disease at L5-S1 level M51.36 [place] [address] [facility] [id number] [address] [place] [address] 05 Apr, 2018 Medicare annual wellness vis it, initial Z00.00 [place] [address] [place] [id number] [place] [address] 10 Mar, 2018 [place] [address] [place] [id number] [place] [address] March, [place] [address] [place] [id number] [address] [place] [address] Feb, Medicare annual wellness vis it, initial Z00.00 ; Bipolar 1 disorder F31.9 ; Low back pain M54.5 and Other chronic pain G89.29 [place] [address] [place] [id number] [address] [place] [address] Jan, [facility] [address] [facility] [id number] [address] [place] [address] Dec, Frequent headaches R51 and D egenerative disc disease at L5-S1 level M51.36 [place] [address] [facility] [id number] [address] [place] [address] Nov, [facility] [address] [facility] [id number] [address] [place] [address] Nov, Chronic intractable headache , unspecified headache type R51 [facility] [address] [place] [id number] [address] [place] [address] Nov, Chronic headaches R51 and BM I 45.0-49.9, adult Z68.42 [place] [address] [address] Nov, [place] [address] [address] Nov, Obesity, morbid E66.01 ; Unc omplicated asthma, unspecified asthma severity J45.909 ; Anxiety F41.9 ; Pure hyperglyceridemia E78.1 and Family history of diabetes mellitus Z83.3 [place] [address] [address] Oct, Bronchitis J40 [place] [address] [address] Oct, Chronic headaches R51 [address] [address] Sep, [place] [address] [address] Sep, Chronic headaches R51 ; Othe r chronic pain G89.29 ; Anemia D64.9 and Obesity, morbid E66.01 [place] [address] [address] 12 Aug, 2017 Acute suppurative otitis med ia of right ear without spontaneous rupture of tympanic membrane, recurrence not specified H66.001 [place] [address] [address] 11 Aug, 2017 Other chronic pain G89.29 [place] [address] [address] 18 Jul, 2017 Degenerative disc disease at L5-S1 level M51.[address] [address] 07 Jul, 2017 Other chronic pain G89.29 an d Sprain of deltoid ligament of left ankle, subsequent encounter S93.422D [facility] [address] [id number] [address] [place] [address] Jul, Degenerative disc disease at L5-S1 level M51.36 [facility] [address] [id number] [address] [place] [address] Jun, [facility] [address] [id number] [address] [place] [address] Jun, Degenerative disc disease at L5-S1 level M51.36 [facility] [address] [id number] [address] [place] [address] Jun, [facility] [address] [id number] [address] [place] [address] Jun, [facility] [address] [id number] [address] [place] [address] Jun, [facility] [address] [id number] [address] [place] [address] May, [facility] [address] [id number] [address] [place] [address] May, [facility] [address] [id number] [address] [place] [address] May, Rib pain on left side R07.81 [facility] [address] [id number] [address] [place] [address] Apr, Morbid obesity due to excess calories E66.01 [facility] [address] [id number] [address] [place] [address] Apr, Gastroenteritis K52.9 [facility] [address] [id number] [address] [place] [address] Apr, Degenerative disc disease at L5-S1 level M51.36 [facility] [address] [id number] [address] [place] [address] March, Degenerative disc disease at L5-S1 level M51.36 [facility] [address] [place] [id number] [address] [place] [address] March, Bipolar 1 disorder F31.9 ; A nemia D64.9 ; Hypopotassemia E87.6 ; Uncomplicated asthma, unspecified asthma severity J45.909 ; Anxiety F41.9 ; Chronic headaches R51 and Degenerative disc disease at L5-S1 level M51.36 [place] [address] [address] March, Degenerative disc disease at L5-S1 level M51.36 [place] [address] [address] March, Degenerative disc disease at L5-S1 level M51.36 [place] [address] [address] March, Uncomplicated asthma, unspec ified asthma severity J45.909 ; Hypoxemia R09.02 ; Chronic headaches R51 and Degenerative disc disease at L5-S1 level M51.36 [place] [address] [address] March, [place] [address] [address] Feb, Acquired equinus deformity o f left foot M21.6X2 [place] [address] [address] Feb, Degenerative disc disease at L5-S1 level M51.36 [place] [address] [place] [id number] [address] [place] [address] Feb, Degenerative disc disease at L5-S1 level M51.36 [place] [address] [address] Jan, Degenerative disc disease at L5-S1 level M51.36 [place] [address] [address] Jan, Degenerative disc disease at L5-S1 level M51.36 [place] [address] [place] [id number] [address] [place] [address] Dec, Degenerative disc disease at L5-S1 level M51.36 [facility] [address] [facility] [id number] [address] [place] [address] Dec, Overactive bladder N32.81 an d Degenerative disc disease at L5-S1 level M51.36 [facility] [address] [facility] [id number] [address] [place] [address] Dec, Degenerative disc disease at L5-S1 level M51.36 [facility] [address] [facility] [id number] [address] [place] [address] Dec, Degenerative disc disease at L5-S1 level M51.36 [facility] [address] [facility] [id number] [address] [place] [address] Nov, [facility] [address] [place] [id number] [address] [place] [address] Nov, Chronic headaches R51 [facility] [address] [facility] [id number] [address] [place] [address] Nov, Degenerative disc disease at L5-S1 level M51.36 [facility] [address] [facility] [id number] [address] [place] [address] Nov, Left upper quadrant pain R10 .12 [facility] [address] [facility] [id number] [address] [place] [address] Nov, Degenerative disc disease at L5-S1 level M51.36 [facility] [address] [facility] [id number] [address] [place] [address] Nov, Degenerative disc disease at L5-S1 level M51.36 [facility] [address] [facility] [id number] [address] [place] [address] Nov, Degenerative disc disease at L5-S1 level M51.36 [facility] [address] [facility] [id number] [address] [place] [address] Nov, Degenerative disc disease at L5-S1 level M51.36 [facility] [address] [facility] [id number] [address] [place] [address] Nov, Degenerative disc disease at L5-S1 level M51.36 [facility] [address] [place] [id number] [address] [place] [address] Oct, Degenerative disc disease at L5-S1 level M51.36 [facility] [address] [place] [id number] [place] [address] Sep, Degenerative disc disease at L5-S1 level M51.36 [facility] [address] [place] [id number] [address] [place] [address] Sep, Degenerative disc disease at L5-S1 level M51.36 ; Bipolar 1 disorder F31.9 ; Chronic headaches R51 ; Hypopotassemia E87.6 ; Uncomplicated asthma, unspecified asthma severity J45.909 ; Anxiety F41.9 ; Overactive bladder N32.81 and Anemia D64.9 [facility] [address] [place] [id number] [address] [place] [address] Sep, Degenerative disc disease at L5-S1 level M51.36 [facility] [address] [place] [id number] [address] [place] [address] Aug, [facility] [address] [place] [id number] [address] [place] [address] Aug, Degenerative disc disease at L5-S1 level M51.36 ; Chronic headaches R51 ; Bipolar 1 disorder F31.9 ; Overactive bladder N32.81 ; Anxiety F41.9 and Anemia D64.9 [facility] [address] [facility] [id number] [address] [place] [address] Aug, Degenerative disc disease at L5-S1 level M51.36 [facility] [address] [place] [id number] [address] [place] [address] Aug, [facility] [address] [place] [id number] [address] [place] [address] Aug, [facility] [address] [facility] [id number] [address] [place] [address] 10 Aug, 2016 Degenerative disc disease at L5-S1 level M51.36 [facility] [address] [place] [id number] [place] [address] 28 Jul, 2016 Degenerative disc disease at L5-S1 level M51.36 [facility] [address] [place] [id number] [place] [address] 27 Jul, 2016 [facility] [address] [place] [id number] [place] [address] 23 Jul, 2016 [place] [address] [address] 22 Jul, 2016 Degenerative disc disease at L5-S1 level M51.36 ; Pure hyperglyceridemia E78.1 ; Bipolar 1 disorder F31.9 ; Anemia D64.9 ; Overactive bladder N32.81 ; Hypopotassemia E87.6 ; Anxiety F41.9 ; Mild intermittent asthma without complication J45.20 and Chronic headaches R51 [place] [address] [address] 15 Jul, 2016 [place] [address] [address] 07 Jul, 2016 [facility] [address] [address] Jun, [facility] [address] [address] Jun, Bipolar 1 disorder F31.9 ; A nxiety F41.9 ; Overactive bladder N32.81 ; Chronic headaches R51 ; Degenerative disc disease at L5-S1 level M51.36 ; Hypopotassemia E87.6 ; Anemia D64.9 and Morbid obesity due to excess calories E66.01 [facility] [address] [place] [id number] [address] [place] [address] Jun, [facility] [address] [place] [id number] [place] [address] May, Overactive bladder N32.81 [facility] [address] [place] [id number] [address] [place] [address] May, Bipolar 1 disorder F31.9 ; A nemia D64.9 ; Overactive bladder N32.81 ; Chronic headaches R51 ; Hypopotassemia E87.6 ; Degenerative disc disease at L5-S1 level M51.36 and Uncomplicated asthma, unspecified asthma severity J45.909 [facility] [address] [place] [id number] [address] [place] [address] May, [facility] [address] [place] [id number] [place] [address] May, Chronic headaches R51 [place] [address] [place] [id number] [place] [address] Apr, Chronic headaches R51 [facility] [address] [place] [id number] [address] [place] [address] March, Chronic headaches R51 [facility] [address] [place] [id number] [address] [place] [address] March, [facility] [address] [place] [id number] [address] [place] [address] Feb, Chronic headaches R51 and De generative disc disease at L5-S1 level M51.36 [facility] [address] [place] [id number] [address] [place] [address] Feb, Hypopotassemia E87.6 ; Anemi a D64.9 ; Overactive bladder N32.81 ; Chronic headaches R51 and Degenerative disc disease at L5-S1 level M51.36 [facility] [address] [place] [id number] [address] [place] [address] Feb, Bipolar 1 disorder F31.9 ; A nemia D64.9 and Overactive bladder N32.81 [facility] [address] [place] [id number] [address] [place] [address] Feb, Scabies B86 ; Bipolar 1 diso rder F31.9 ; Anemia D64.9 ; Overactive bladder N32.81 ; Chronic headaches R51 ; Degenerative disc disease at L5-S1 level M51.36 and Wellness examination Z00.00 [facility] [address] [facility] [id number] [address] [address] Feb, [facility] [address] [facility] [id number] [address] [place] [address] Oct, IMMUNIZATIONS No Known Immunizations SOCIAL HISTORY Never Assessed REASON FOR VISIT Follow-up Bipolar/Trauma PLAN OF CARE Activity Details Follow Up 3 Weeks Reason: Follow-up VITAL SIGNS MEDICATIONS Unknown Medications RESULTS No Results PROCEDURES Procedure Date Ordered Result Body Site [facility] VISIT MENTAL HEALTH ESTAB PT Aug 29, 2018 Psychotherapy, patient &/family, 30 minutes, established patient Aug 29, 2018 INSTRUCTIONS MEDICATIONS ADMINISTERED No Known Medications [...] interstem replaced 05/2016 Hospitalization History [facility]- Headache 12/18/2017
--- OUTSIDE RECORDS SUMMARY | 2019-11-27 06:43 | XMS REPORT ---
Author Author Tish PARSONS Organization [facility] Address [address] [place] [address] Care Team Providers Care Medical Superintendent Name Role Phone DONNY PARSONS Unavailable PROBLEMS Type Condition ICD9-CM Code [id number] Code Onset Dates Condition S tatus SNOMED Code Problem Morbid obesity due to excess calories E66.01 Active 628525208 Problem Obesity, morbid E66.01 Active 2381 61878 Problem Other chronic pain G89.29 Active 8 2820056 Problem Controlled type 2 diabetes m ellitus without complication, without long- term current use of insulin E11.9 Active 174445772 Problem Bipolar I disorder with depression F31.9 Active 73881153 Problem Chronic fatigue R53.82 Active 8422 9001 Problem Moderate persistent asthma with exacerbation J45.4 1 Active 865001696 Problem Chronic post-traumatic stress disorder (PTSD) F43. 12 Active 556464883 Problem Unsteady gait R26.81 Active 006922 08 Problem Chronic headaches R51 Active 43 0144622 Problem Anemia D64.9 Active 777977477 Problem Pure hyperglyceridemia E78.1 Active 396693027 Problem Overactive bladder N32.81 Active 2 90669517 Problem Uncomplicated asthma, unspecified asthma severity J45.909 Active 515122109 Problem Anxiety F41.9 Active 37975961 Problem Hypopotassemia E87.6 Active 52542 004 Problem Acquired equinus deformity of left foot M21.6X2 Active 78901030 Problem Degenerative disc disease at L5-S1 level M51.36 Active 93860917 Problem Hypoxemia R09.02 Active [id number] ALLERGIES No Information ENCOUNTERS Encounter Location Date Diagnosis [facility] [address] [facility] [id number] [address] [place] [address] Aug, [facility] [address] [facility] [id number] [address] [place] [address] Aug, [facility] [address] [facility] [id number] [address] [place] [address] Aug, [facility] [address] [facility] [id number] [address] [place] [address] Jul, [facility] [address] [facility] [id number] [address] [place] [address] 10 Jul, 2018 [place] [address] [place] [id number] [place] [address] 07 Jul, 2018 Other chronic pain G89.29 ; Dysuria R30.0 ; Degenerative disc disease at L5-S1 level M51.36 ; Uncomplicated asthma, unspecified asthma severity J45.909 ; Vagina, candidiasis B37.3 ; Glucose found in urine on examination R81 ; Family history of diabetes mellitus Z83.3 and Controlled type 2 diabetes mellitus without complication, without long-term current use of insulin E11.9 [place] [address] [place] [id number] [address] [place] [address] Jun, Degenerative disc disease at L5-S1 level M51.36 [place] [address] [place] [id number] [address] [place] [address] Jun, [place] [address] [place] [id number] [address] [place] [address] Jun, Medicare annual wellness vis it, initial Z00.00 [place] [address] [place] [id number] [address] [place] [address] Jun, [place] [address] [place] [id number] [address] [place] [address] Jun, Bipolar I disorder with depr ession F31.9 and Chronic post-traumatic stress disorder (PTSD) F43.12 [place] [address] [facility] [id number] [address] [place] [address] Jun, Degenerative disc disease at L5-S1 level M51.36 [place] [address] [place] [id number] [address] [place] [address] Jun, [place] [address] [place] [id number] [address] [place] [address] May, [facility] [address] [id number] [address] [place] [address] May, [facility] [address] [id number] [address] [place] [address] Apr, [facility] [address] [facility] [id number] [address] [place] [address] Apr, Unsteady gait R26.81 ; Chron ic fatigue R53.82 ; SOB (shortness of breath) R06.02 and Moderate persistent asthma with exacerbation J45.41 [facility] [address] [facility] [id number] [address] [place] [address] Apr, [facility] [address] [facility] [id number] [address] [place] [address] Apr, Medicare annual wellness vis it, initial Z00.00 [facility] [address] [facility] [id number] [address] [place] [address] March, [facility] [address] [facility] [id number] [address] [place] [address] March, [facility] [address] [place] [id number] [address] [place] [address] Feb, Medicare annual wellness vis it, initial Z00.00 ; Bipolar 1 disorder F31.9 ; Low back pain M54.5 and Other chronic pain G89.29 [facility] [address] [facility] [id number] [address] [place] [address] Jan, [facility] [address] [facility] [id number] [address] [place] [address] Dec, Frequent headaches R51 and D egenerative disc disease at L5-S1 level M51.36 [facility] [address] [facility] [id number] [address] [place] [address] Nov, [facility] [address] [facility] [id number] [address] [place] [address] Nov, Chronic intractable headache , unspecified headache type R51 [facility] [address] [place] [id number] [address] [place] [address] Nov, Chronic headaches R51 and BM I 45.0-49.9, adult Z68.42 [facility] [address] [place] [id number] [address] [place] [address] Nov, [facility] [address] [address] Nov, Obesity, morbid E66.01 ; Unc omplicated asthma, unspecified asthma severity J45.909 ; Anxiety F41.9 ; Pure hyperglyceridemia E78.1 and Family history of diabetes mellitus Z83.3 [place] [address] [id number] Oct, Bronchitis J40 [place] [address] [address] Oct, Chronic headaches R51 [place] [address] [address] Sep, [place] [address] [address] Sep, Chronic headaches R51 ; Othe r chronic pain G89.29 ; Anemia D64.9 and Obesity, morbid E66.01 [place] [address] [address] Aug, Acute suppurative otitis med ia of right ear without spontaneous rupture of tympanic membrane, recurrence not specified H66.001 [place] [address] [address] 11 Aug, 2017 Other chronic pain G89.29 [place] [address] [place] [id number] [address] [place] [address] 18 Jul, 2017 Degenerative disc disease at L5-S1 level M51.36 [place] [address] [place] [id number] [address] [place] [address] 07 Jul, 2017 Other chronic pain G89.29 an d Sprain of deltoid ligament of left ankle, subsequent encounter S93.422D [facility] [address] [id number] [address] [place] [address] 05 Jul, 2017 Degenerative disc disease at L5-S1 level M51.36 [facility] [address] [id number] [address] [place] [address] Jun, [facility] [address] [id number] [address] [place] [address] Jun, Degenerative disc disease at L5-S1 level M51.36 [facility] [address] [id number] [address] [place] [address] Jun, [facility] [address] [id number] [address] [place] [address] Jun, [facility] [address] [id number] [address] [place] [address] Jun, [facility] [address] [id number] [address] [place] [address] May, [facility] [address] [id number] [address] [place] [address] May, [facility] [address] [id number] [address] [place] [address] May, Rib pain on left side R07.81 [facility] [address] [id number] [address] [place] [address] Apr, Morbid obesity due to excess calories E66.01 [facility] [address] [id number] [address] [place] [address] Apr, Gastroenteritis K52.9 [facility] [address] [facility] [id number] [address] [place] [address] Apr, Degenerative disc disease at L5-S1 level M51.36 [facility] [address] [address] March, Degenerative disc disease at L5-S1 level M51.36 [place] [address] [address] March, Bipolar 1 disorder F31.9 ; A nemia D64.9 ; Hypopotassemia E87.6 ; Uncomplicated asthma, unspecified asthma severity J45.909 ; Anxiety F41.9 ; Chronic headaches R51 and Degenerative disc disease at L5-S1 level M51.36 [place] [address] [address] March, Degenerative disc disease at L5-S1 level M51.36 [place] [address] [address] March, Degenerative disc disease at L5-S1 level M51.36 [place] [address] [address] March, Uncomplicated asthma, unspec ified asthma severity J45.909 ; Hypoxemia R09.02 ; Chronic headaches R51 and Degenerative disc disease at L5-S1 level M51.36 [place] [address] [address] March, [place] [address] [address] Feb, Acquired equinus deformity o f left foot M21.6X2 [place] [address] [address] Feb, Degenerative disc disease at L5-S1 level M51.36 [place] [address] [address] Feb, Degenerative disc disease at L5-S1 level M51.36 [place] [address] [address] Jan, Degenerative disc disease at L5-S1 level M51.36 [place] [address] [id number] [address] [place] [address] Jan, Degenerative disc disease at L5-S1 level M51.36 [facility] [address] [id number] [address] [place] [address] Dec, Degenerative disc disease at L5-S1 level M51.36 [facility] [address] [facility] [id number] [address] [place] [address] Dec, Overactive bladder N32.81 an d Degenerative disc disease at L5-S1 level M51.36 [facility] [address] [id number] [address] [place] [address] Dec, Degenerative disc disease at L5-S1 level M51.36 [facility] [address] [facility] [id number] [address] [place] [address] Dec, Degenerative disc disease at L5-S1 level M51.36 [facility] [address] [facility] [id number] [address] [place] [address] Nov, [facility] [address] [facility] [id number] [address] [place] [address] Nov, Chronic headaches R51 [facility] [address] [facility] [id number] [address] [place] [address] Nov, Degenerative disc disease at L5-S1 level M51.36 [facility] [address] [facility] [id number] [address] [place] [address] Nov, Left upper quadrant pain R10 .12 [facility] [address] [facility] [id number] [address] [place] [address] Nov, Degenerative disc disease at L5-S1 level M51.36 [facility] [address] [facility] [id number] [address] [place] [address] Nov, Degenerative disc disease at L5-S1 level M51.36 [facility] [address] [facility] [id number] [address] [place] [address] Nov, Degenerative disc disease at L5-S1 level M51.36 [facility] [address] [address] Nov, Degenerative disc disease at L5-S1 level M51.36 [facility] [address] [place] [id number] [place] [address] Nov, Degenerative disc disease at L5-S1 level M51.36 [facility] [address] [place] [id number] [place] [address] Oct, Degenerative disc disease at L5-S1 level M51.36 [place] [address] [place] [id number] [place] [address] Sep, Degenerative disc disease at L5-S1 level M51.36 [place] [address] [address] Sep, Degenerative disc disease at L5-S1 level M51.36 ; Bipolar 1 disorder F31.9 ; Chronic headaches R51 ; Hypopotassemia E87.6 ; Uncomplicated asthma, unspecified asthma severity J45.909 ; Anxiety F41.9 ; Overactive bladder N32.81 and Anemia D64.9 [place] [address] [address] Sep, Degenerative disc disease at L5-S1 level M51.36 [place] [address] [address] Aug, [place] [address] [address] Aug, Degenerative disc disease at L5-S1 level M51.36 ; Chronic headaches R51 ; Bipolar 1 disorder F31.9 ; Overactive bladder N32.81 ; Anxiety F41.9 and Anemia D64.9 [facility] [address] [place] [id number] [place] [address] Aug, Degenerative disc disease at L5-S1 level M51.36 [facility] [address] [place] [address] [address] 18 Aug, 2016 [facility] [address] [address] 14 Aug, 2016 [facility] [address] [place] [id number] [place] [address] 10 Aug, 2016 Degenerative disc disease at L5-S1 level M51.36 [facility] [address] [address] 28 Jul, 2016 Degenerative disc disease at L5-S1 level M51.36 [facility] [address] [place] [id number] [place] [address] 27 Jul, 2016 [facility] [address] [address] 23 Jul, 2016 [facility] [address] [address] 22 Jul, 2016 Degenerative disc disease at L5-S1 level M51.36 ; Pure hyperglyceridemia E78.1 ; Bipolar 1 disorder F31.9 ; Anemia D64.9 ; Overactive bladder N32.81 ; Hypopotassemia E87.6 ; Anxiety F41.9 ; Mild intermittent asthma without complication J45.20 and Chronic headaches R51 [facility] [address] [address] 15 Jul, 2016 [facility] [address] [address] 07 Jul, 2016 [facility] [address] [address] Jun, [facility] [address] [address] Jun, Bipolar 1 disorder F31.9 ; A nxiety F41.9 ; Overactive bladder N32.81 ; Chronic headaches R51 ; Degenerative disc disease at L5-S1 level M51.36 ; Hypopotassemia E87.6 ; Anemia D64.9 and Morbid obesity due to excess calories E66.01 [facility] [address] [facility] [id number] [address] [place] [address] Jun, [facility] [address] [facility] [id number] [address] [place] [address] May, Overactive bladder N32.81 [facility] [address] [facility] [id number] [address] [place] [address] May, Bipolar 1 disorder F31.9 ; A nemia D64.9 ; Overactive bladder N32.81 ; Chronic headaches R51 ; Hypopotassemia E87.6 ; Degenerative disc disease at L5-S1 level M51.36 and Uncomplicated asthma, unspecified asthma severity J45.909 [facility] [address] [facility] [id number] [address] [place] [address] May, [facility] [address] [facility] [id number] [address] [place] [address] May, Chronic headaches R51 [facility] [address] [facility] [id number] [address] [place] [address] Apr, Chronic headaches R51 [facility] [address] [facility] [id number] [address] [place] [address] March, Chronic headaches R51 [facility] [address] [facility] [id number] [address] [place] [address] March, [facility] [address] [facility] [id number] [address] [place] [address] Feb, Chronic headaches R51 and De generative disc disease at L5-S1 level M51.36 [facility] [address] [facility] [id number] [address] [place] [address] Feb, Hypopotassemia E87.6 ; Anemi a D64.9 ; Overactive bladder N32.81 ; Chronic headaches R51 and Degenerative disc disease at L5-S1 level M51.36 [facility] [address] [facility] [id number] [address] [place] [address] Feb, Bipolar 1 disorder F31.9 ; A nemia D64.9 and Overactive bladder N32.81 [facility] [address] [facility] [id number] [address] [place] [address] Feb, Scabies B86 ; Bipolar 1 diso rder F31.9 ; Anemia D64.9 ; Overactive bladder N32.81 ; Chronic headaches R51 ; Degenerative disc disease at L5-S1 level M51.36 and Wellness examination Z00.00 [place] [address] [facility] [id number] [address] [place] [address] 17 Feb, 2009 [facility] [address] [facility] [id number] [address] [place] [address] Oct, IMMUNIZATIONS No Known Immunizations SOCIAL HISTORY Never Assessed REASON FOR VISIT intake PLAN OF CARE Activity Details Follow Up next available Reason: Fol low-up VITAL SIGNS MEDICATIONS Medication Instructions Dosage Frequency Start Date End Date Duration S tatus Zofran ODT 4 MG Orally every 8 hrs 1 tablet on the tongue and al low to dissolve 8h Nov, Unknown Topamax 100 mg Orally Twice a day 2 tablets 12h Feb, 30 days Unknown Klor-Con M20 20MEQ 1 tablet 12h Unkn own Effexor XR 150 MG Orally Once a day 1 capsule with food 24h Unknown Ferrous Sulfate 325 (65 Fe) mg Orally 2 times a day 1 tablet 12h Unknown Zxqzljzhdl-YJYQ-Nwpszlqf 50-325-40 MG Orally every 4 hrs 1 tablet a s needed 4h Dec, Unknown Seroquel 200 mg Orally Once a day 1 tablet at bedtime 24h Unknown Albuterol Sulfate HFA 108 (90 Base) MCG/ACT Inhalation every 4 hrs 2 puffs as needed 4h May, Unknown Hydrocodone-Ibuprofen 7.5-200 MG Orally every 6 hrs 1 tablet as nee ded 6h Apr, 28 days Unknown Wheel Chair K1 Basic Desk Arm 1 as directed Apr, Unknown Neurontin 600 MG Orally Three times a day 1 tablet 8h Unknown RESULTS No Results PROCEDURES Procedure Date Ordered Result Body Site [facility] VISIT MENTAL HEALTH ESTAB PT Jul 08, 2018 Psych diagnostic evaluation, established patient Jul 08, 2018 INSTRUCTIONS MEDICATIONS ADMINISTERED No Known Medications [...] interstem replaced 05/2016 Hospitalization History [facility]- Headache 12/18/2017
--- OUTSIDE RECORDS SUMMARY | 2019-11-27 06:43 | XMS REPORT ---
Author Author Tish NIEVES Organization [facility] Address [address] [place] [address] Care Team Providers Care Bee Farmer Name Role Phone EZEQUIEL NIELS Unavailable PROBLEMS Type Condition ICD9-CM Code [id number] Code Onset Dates Condition S tatus SNOMED Code Problem Morbid obesity due to excess calories E66.01 Active 579614714 Problem Obesity, morbid E66.01 Active 2381 59883 Problem Other chronic pain G89.29 Active 8 7098245 Problem Controlled type 2 diabetes m ellitus without complication, without long- term current use of insulin E11.9 Active 286531425 Problem Bipolar I disorder with depression F31.9 Active 95354886 Problem Chronic fatigue R53.82 Active 8422 9001 Problem Moderate persistent asthma with exacerbation J45.4 1 Active 263622062 Problem Chronic post-traumatic stress disorder (PTSD) F43. 12 Active 415476802 Problem Unsteady gait R26.81 Active 910991 08 Problem Chronic headaches R51 Active 43 9134666 Problem Anemia D64.9 Active 140029769 Problem Pure hyperglyceridemia E78.1 Active 300880411 Problem Overactive bladder N32.81 Active 2 05746985 Problem Uncomplicated asthma, unspecified asthma severity J45.909 Active 318759664 Problem Anxiety F41.9 Active 98644441 Problem Hypopotassemia E87.6 Active 42539 004 Problem Acquired equinus deformity of left foot M21.6X2 Active 19899432 Problem Degenerative disc disease at L5-S1 level M51.36 Active 87728572 Problem Hypoxemia R09.02 Active [id number] ALLERGIES No Information ENCOUNTERS Encounter Location Date Diagnosis [facility] [address] [facility] [id number] [address] [place] [address] Sep, [facility] [address] [facility] [id number] [address] [place] [address] Aug, [facility] [address] [place] [id number] [address] [place] [address] Aug, [place] [address] [id number] [address] [place] [address] Aug, [place] [address] [facility] [id number] [address] [place] [address] Aug, Bipolar I disorder with depr ession F31.9 and Chronic post-traumatic stress disorder (PTSD) F43.12 [place] [address] [id number] [address] [place] [address] Aug, Degenerative disc disease at L5-S1 level M51.36 [place] [address] [facility] [id number] [address] [place] [address] Jul, Controlled type 2 diabetes m ellitus without complication, without long-term current use of insulin E11.9 [place] [address] [facility] [id number] [address] [place] [address] Jul, Frequent headaches R51 [place] [address] [id number] [address] [place] [address] Jul, [place] [address] [facility] [id number] [address] [place] [address] Jul, Bipolar I disorder with depr ession F31.9 and Chronic post-traumatic stress disorder (PTSD) F43.12 [place] [address] [facility] [id number] [address] [place] [address] Jul, [place] [address] [id number] [address] [place] [address] 07 Jul, 2018 Other chronic pain G89.29 ; Dysuria R30.0 ; Degenerative disc disease at L5-S1 level M51.36 ; Uncomplicated asthma, unspecified asthma severity J45.909 ; Vagina, candidiasis B37.3 ; Glucose found in urine on examination R81 ; Family history of diabetes mellitus Z83.3 and Controlled type 2 diabetes mellitus without complication, without long-term current use of insulin E11.9 [place] [address] [facility] [id number] [address] [place] [address] Jun, Degenerative disc disease at L5-S1 level M51.36 [facility] [address] [facility] [id number] [address] [place] [address] Jun, [facility] [address] [facility] [id number] [address] [place] [address] Jun, Medicare annual wellness vis it, initial Z00.00 [facility] [address] [facility] [id number] [address] [place] [address] Jun, [facility] [address] [facility] [id number] [address] [place] [address] Jun, Bipolar I disorder with depr ession F31.9 and Chronic post-traumatic stress disorder (PTSD) F43.12 [place] [address] [facility] [id number] [address] [place] [address] Jun, Degenerative disc disease at L5-S1 level M51.36 [facility] [address] [facility] [id number] [address] [place] [address] Jun, [facility] [address] [place] [id number] [address] [place] [address] May, [facility] [address] [facility] [id number] [address] [place] [address] May, [facility] [address] [place] [id number] [address] [place] [address] Apr, Degenerative disc disease at L5-S1 level M51.36 [facility] [address] [facility] [id number] [address] [place] [address] 18 Apr, 2018 Unsteady gait R26.81 ; Chron ic fatigue R53.82 ; SOB (shortness of breath) R06.02 and Moderate persistent asthma with exacerbation J45.41 [facility] [address] [facility] [id number] [address] [place] [address] Apr, Degenerative disc disease at L5-S1 level M51.36 [facility] [address] [place] [id number] [address] [place] [address] 05 Apr, 2018 Medicare annual wellness vis it, initial Z00.00 [facility] [address] [facility] [id number] [address] [place] [address] 10 Mar, 2018 [facility] [address] [facility] [id number] [address] [place] [address] 04 Mar, 2018 [place] [address] [facility] [id number] [address] [place] [address] 11 Feb, 2018 Medicare annual wellness vis it, initial Z00.00 ; Bipolar 1 disorder F31.9 ; Low back pain M54.5 and Other chronic pain G89.29 [place] [address] [place] [id number] [address] [place] [address] Jan, [place] [address] [place] [id number] [address] [place] [address] 22 Dec, 2017 Frequent headaches R51 and D egenerative disc disease at L5-S1 level M51.36 [place] [id number] [place] [address] Nov, [facility] W[facility] [place] [address] [place] [id number] [address] [place] [address] Nov, Chronic intractable headache , unspecified headache type R51 [facility] W[facility] [place] [address] [place] [id number] [address] [place] [address] Nov, Chronic headaches R51 and BM I 45.0-49.9, adult Z68.42 [place] [address] [facility] [id number] [address] [place] [address] Nov, [place] [address] [address] Nov, Obesity, morbid E66.01 ; Unc omplicated asthma, unspecified asthma severity J45.909 ; Anxiety F41.9 ; Pure hyperglyceridemia E78.1 and Family history of diabetes mellitus Z83.3 [place] [address] [address] 15 Oct, 2017 Bronchitis J40 [facility] [address] [address] 06 Oct, 2017 Chronic headaches R51 [place] [address] [place] [id number] [place] [address] Sep, [place] [address] [address] Sep, Chronic headaches R51 ; Othe r chronic pain G89.29 ; Anemia D64.9 and Obesity, morbid E66.01 [place] [address] [address] Aug, Acute suppurative otitis med ia of right ear without spontaneous rupture of tympanic membrane, recurrence not specified H66.001 [place] [address] [address] Aug, Other chronic pain G89.29 [place] [address] [address] 18 Jul, 2017 Degenerative disc disease at L5-S1 level M51.36 [place] [address] [address] 07 Jul, 2017 Other chronic pain G89.29 an d Sprain of deltoid ligament of left ankle, subsequent encounter S93.422D [place] [address] [place] [id number] [address] [place] [address] 05 Jul, 2017 Degenerative disc disease at L5-S1 level M51.36 [place] [address] [place] [id number] [address] [place] [address] Jun, [place] [address] [place] [id number] [place] [address] Jun, Degenerative disc disease at L5-S1 level M51.36 [place] [address] [place] [id number] [place] [address] Jun, [facility] [address] [place] [address] Jun, [facility] [address] [place] [id number] [address] [place] [address] Jun, [facility] [address] [facility] [id number] [address] [place] [address] May, [facility] [address] [place] [id number] [address] [place] [address] May, [facility] [address] [place] [id number] [place] [address] May, Rib pain on left side R07.81 [facility] [address] [place] [id number] [address] [place] [address] Apr, Morbid obesity due to excess calories E66.01 [place] [address] [address] Apr, Gastroenteritis K52.9 [facility] [address] [address] Apr, Degenerative disc disease at L5-S1 level M51.36 [place] [address] [place] [id number] [address] [place] [address] March, Degenerative disc disease at L5-S1 level M51.36 [place] [address] [place] [id number] [address] [place] [address] March, Bipolar 1 disorder F31.9 ; A nemia D64.9 ; Hypopotassemia E87.6 ; Uncomplicated asthma, unspecified asthma severity J45.909 ; Anxiety F41.9 ; Chronic headaches R51 and Degenerative disc disease at L5-S1 level M51.36 [facility] [address] [place] [id number] [address] [place] [address] March, Degenerative disc disease at L5-S1 level M51.36 [facility] [address] [place] [id number] [address] [place] [address] March, Degenerative disc disease at L5-S1 level M51.36 [place] [address] [address] March, Uncomplicated asthma, unspec ified asthma severity J45.909 ; Hypoxemia R09.02 ; Chronic headaches R51 and Degenerative disc disease at L5-S1 level M51.36 [place] [address] [address] March, [place] [address] [address] Feb, Acquired equinus deformity o f left foot M21.6X2 [place] [address] [address] Feb, Degenerative disc disease at L5-S1 level M51.36 [place] [address] [address] Feb, Degenerative disc disease at L5-S1 level M51.36 [place] [address] [address] Jan, Degenerative disc disease at L5-S1 level M51.36 [place] [address] [address] Jan, Degenerative disc disease at L5-S1 level M51.36 [place] [address] [place] [id number] [address] [place] [address] Dec, Degenerative disc disease at L5-S1 level M51.36 [place] [address] [place] [id number] [address] [place] [address] Dec, Overactive bladder N32.81 an d Degenerative disc disease at L5-S1 level M51.36 [place] [address] [place] [id number] [address] [place] [address] Dec, Degenerative disc disease at L5-S1 level M51.36 [place] [address] [place] [id number] [address] [place] [address] Dec, Degenerative disc disease at L5-S1 level M51.36 [facility] [address] [facility] [id number] [address] [place] [address] Nov, [facility] [address] [facility] [id number] [address] [place] [address] Nov, Chronic headaches R51 [facility] [address] [id number] [address] [place] [address] Nov, Degenerative disc disease at L5-S1 level M51.36 [facility] [address] [id number] [address] [place] [address] Nov, Left upper quadrant pain R10 .12 [facility] [address] [id number] [address] [place] [address] Nov, Degenerative disc disease at L5-S1 level M51.36 [facility] [address] [facility] [id number] [address] [place] [address] Nov, Degenerative disc disease at L5-S1 level M51.36 [facility] [address] [facility] [id number] [address] [place] [address] Nov, Degenerative disc disease at L5-S1 level M51.36 [facility] [address] [facility] [id number] [address] [place] [address] Nov, Degenerative disc disease at L5-S1 level M51.36 [facility] [address] [facility] [id number] [address] [place] [address] Nov, Degenerative disc disease at L5-S1 level M51.36 [facility] [address] [facility] [id number] [address] [place] [address] Oct, Degenerative disc disease at L5-S1 level M51.36 [facility] [address] [facility] [id number] [address] [place] [address] Sep, Degenerative disc disease at L5-S1 level M51.36 [facility] [address] [facility] [id number] [address] [place] [address] Sep, Degenerative disc disease at L5-S1 level M51.36 ; Bipolar 1 disorder F31.9 ; Chronic headaches R51 ; Hypopotassemia E87.6 ; Uncomplicated asthma, unspecified asthma severity J45.909 ; Anxiety F41.9 ; Overactive bladder N32.81 and Anemia D64.9 [facility] [address] [facility] [id number] [address] [place] [address] Sep, Degenerative disc disease at L5-S1 level M51.36 [facility] [address] [facility] [id number] [address] [place] [address] Aug, [facility] [address] [place] [id number] [place] [address] Aug, Degenerative disc disease at L5-S1 level M51.36 ; Chronic headaches R51 ; Bipolar 1 disorder F31.9 ; Overactive bladder N32.81 ; Anxiety F41.9 and Anemia D64.9 [facility] [address] [facility] [id number] [address] [place] [address] Aug, Degenerative disc disease at L5-S1 level M51.36 [facility] [address] [facility] [id number] [address] [place] [address] 18 Aug, 2016 [facility] [address] [place] [id number] [address] [place] [address] 14 Aug, 2016 [facility] [address] [facility] [id number] [address] [place] [address] 10 Aug, 2016 Degenerative disc disease at L5-S1 level M51.36 [facility] [address] [facility] [id number] [address] [place] [address] 28 Jul, 2016 Degenerative disc disease at L5-S1 level M51.36 [facility] [address] [facility] [id number] [address] [place] [address] 27 Jul, 2016 [facility] [address] [facility] [id number] [address] [place] [address] Jul, [place] [address] [address] Jul, Degenerative disc disease at L5-S1 level M51.36 ; Pure hyperglyceridemia E78.1 ; Bipolar 1 disorder F31.9 ; Anemia D64.9 ; Overactive bladder N32.81 ; Hypopotassemia E87.6 ; Anxiety F41.9 ; Mild intermittent asthma without complication J45.20 and Chronic headaches R51 [place] [address] [address] Jul, [place] [address] [address] Jul, [place] [address] [address] Jun, [address] [address] Jun, Bipolar 1 disorder F31.9 ; A nxiety F41.9 ; Overactive bladder N32.81 ; Chronic headaches R51 ; Degenerative disc disease at L5-S1 level M51.36 ; Hypopotassemia E87.6 ; Anemia D64.9 and Morbid obesity due to excess calories E66.01 [place] [address] [address] Jun, [place] [address] [address] May, Overactive bladder N32.81 [place] [address] [address] May, Bipolar 1 disorder F31.9 ; A nemia D64.9 ; Overactive bladder N32.81 ; Chronic headaches R51 ; Hypopotassemia E87.6 ; Degenerative disc disease at L5-S1 level M51.36 and Uncomplicated asthma, unspecified asthma severity J45.[address] [address] May, [facility] [address] [place] [address] May, Chronic headaches R51 [facility] [address] [facility] [id number] [address] [place] [address] Apr, Chronic headaches R51 [facility] [address] [place] [address] March, Chronic headaches R51 [place] [address] [address] March, [place] [address] [address] Feb, Chronic headaches R51 and De generative disc disease at L5-S1 level M51.36 [place] [address] [address] Feb, Hypopotassemia E87.6 ; Anemi a D64.9 ; Overactive bladder N32.81 ; Chronic headaches R51 and Degenerative disc disease at L5-S1 level M51.36 [place] [address] [address] Feb, Bipolar 1 disorder F31.9 ; A nemia D64.9 and Overactive bladder N32.81 [place] [address] [place] [id number] [address] [place] [address] Feb, Scabies B86 ; Bipolar 1 diso rder F31.9 ; Anemia D64.9 ; Overactive bladder N32.81 ; Chronic headaches R51 ; Degenerative disc disease at L5-S1 level M51.36 and Wellness examination Z00.00 [place] [address] [place] [id number] [address] [place] [address] Feb, [place] [address] [place] [id number] [address] [place] [address] Oct, IMMUNIZATIONS No Known Immunizations SOCIAL HISTORY Never Assessed REASON FOR VISIT PT Evaluation PLAN OF CARE Activity Details Follow Up 3 Weeks Reason:F/U PT VITAL SIGNS MEDICATIONS Unknown Medications RESULTS No Results PROCEDURES Procedure Date Ordered Result Body Site PT EVAL MOD COMPLEX 30 MIN May 08, 2018 THERAPEUTIC EXERCISES May 08, 2018 INSTRUCTIONS MEDICATIONS ADMINISTERED No Known [...] interstem replaced 05/2016 Hospitalization History [facility] [place]- Headache 12/18/2017
--- OUTSIDE RECORDS SUMMARY | 2019-11-27 06:43 | XMS REPORT ---
Author Author Tish MALCOLM Organization [facility] Address [address] [place] [address] Care Team Providers Care Biomedical Manager Name Role Phone CHARIS MALCOLM Unavailable PROBLEMS Type Condition ICD9-CM Code [id number] Code Onset Dates Condition S tatus SNOMED Code Problem Morbid obesity due to excess calories E66.01 Active 958235336 Problem Obesity, morbid E66.01 Active 2381 08049 Problem Other chronic pain G89.29 Active 8 0934767 Problem Controlled type 2 diabetes m ellitus without complication, without long- term current use of insulin E11.9 Active 250781258 Problem Bipolar I disorder with depression F31.9 Active 67935592 Problem Chronic fatigue R53.82 Active 8422 9001 Problem Moderate persistent asthma with exacerbation J45.4 1 Active 576389859 Problem Chronic post-traumatic stress disorder (PTSD) F43. 12 Active 919582149 Problem Unsteady gait R26.81 Active 325605 08 Problem Chronic headaches R51 Active 43 0733957 Problem Anemia D64.9 Active 401051813 Problem Pure hyperglyceridemia E78.1 Active 718820740 Problem Overactive bladder N32.81 Active 2 75667525 Problem Uncomplicated asthma, unspecified asthma severity J45.909 Active 718035881 Problem Anxiety F41.9 Active 28785694 Problem Hypopotassemia E87.6 Active 72566 004 Problem Acquired equinus deformity of left foot M21.6X2 Active 14551598 Problem Degenerative disc disease at L5-S1 level M51.36 Active 10497461 Problem Hypoxemia R09.02 Active 737461546 ALLERGIES No Information ENCOUNTERS Encounter Location Date Diagnosis [facility] [address] [facility] [id number] [address] [place] [phone] Aug, [facility] [address] [facility] [id number] [address] [place] [phone] Aug, [facility] [address] [place] [id number] [place] [phone] Aug, [facility] [address] [facility] [id number] [address] [place] [phone] Aug, [facility] [address] [facility] [id number] [address] [place] [phone] Jul, Frequent headaches R51 [place] [address] [place] [id number] [place] [phone] Jul, [place] [address] [place] [id number] [place] [phone] 19 Jul, 2018 Bipolar I disorder with depr ession F31.9 and Chronic post-traumatic stress disorder (PTSD) F43.12 [place] [address] [place] [id number] [place] [phone] 10 Jul, 2018 [place] [address] [address] 07 Jul, 2018 Other chronic pain G89.29 ; Dysuria R30.0 ; Degenerative disc disease at L5-S1 level M51.36 ; Uncomplicated asthma, unspecified asthma severity J45.909 ; Vagina, candidiasis B37.3 ; Glucose found in urine on examination R81 ; Family history of diabetes mellitus Z83.3 and Controlled type 2 diabetes mellitus without complication, without long-term current use of insulin E11.9 [place] [address] [place] [id number] [place] [phone] Jun, Degenerative disc disease at L5-S1 level M51.36 [place] [address] [place] [id number] [place] [phone] Jun, [place] [address] [place] [id number] [place] [phone] Jun, Medicare annual wellness vis it, initial Z00.00 [place] [address] [place] [id number] [place] [phone] Jun, [facility] [address] [place] [id number] [place] [phone] Jun, Bipolar I disorder with depr ession F31.9 and Chronic post-traumatic stress disorder (PTSD) F43.12 [facility] [address] [id number] [address] [place] [phone] Jun, Degenerative disc disease at L5-S1 level M51.36 [facility] [address] [id number] [address] [place] [phone] Jun, [facility] [address] [id number] [address] [place] [phone] May, [place] [address] [id number] [address] [place] [phone] May, [place] [address] [facility] [id number] [address] [place] [phone] Apr, [place] [address] [facility] [id number] [address] [place] [phone] 18 Apr, 2018 Unsteady gait R26.81 ; Chron ic fatigue R53.82 ; SOB (shortness of breath) R06.02 and Moderate persistent asthma with exacerbation J45.41 [place] [address] [facility] [id number] [address] [place] [phone] Apr, [place] [address] [facility] [id number] [address] [place] [phone] 05 Apr, 2018 Medicare annual wellness vis it, initial Z00.00 [place] [address] [id number] [address] [place] [phone] 10 Mar, 2018 [facility] [address] [facility] [id number] [address] [place] [phone] March, [place] [address] [facility] [id number] [address] [place] [phone] Feb, Medicare annual wellness vis it, initial Z00.00 ; Bipolar 1 disorder F31.9 ; Low back pain M54.5 and Other chronic pain G89.29 [place] [address] [id number] Jan, [place] [address] [address] Dec, Frequent headaches R51 and D egenerative disc disease at L5-S1 level M51.36 [place] [address] [address] Nov, [facility] [address] [address] Nov, Chronic intractable headache , unspecified headache type R51 [facility] [place] [address] [address] Nov, Chronic headaches R51 and BM I 45.0-49.9, adult Z68.42 [place] [address] [address] Nov, [place] [address] [address] Nov, Obesity, morbid E66.01 ; Unc omplicated asthma, unspecified asthma severity J45.909 ; Anxiety F41.9 ; Pure hyperglyceridemia E78.1 and Family history of diabetes mellitus Z83.3 [place] [address] [address] Oct, Bronchitis J40 [place] [address] [address] Oct, Chronic headaches R51 [place] [address] [address] Sep, [place] [address] [address] Sep, Chronic headaches R51 ; Othe r chronic pain G89.29 ; Anemia D64.9 and Obesity, morbid E66.01 [place] [address] [address] Aug, Acute suppurative otitis med ia of right ear without spontaneous rupture of tympanic membrane, recurrence not specified H66.001 [facility] [address] [id number] [address] [place] [phone] Aug, Other chronic pain G89.29 [facility] [address] [id number] [address] [place] [phone] Jul, Degenerative disc disease at L5-S1 level M51.36 [facility] [address] [id number] [address] [place] [phone] 07 Jul, 2017 Other chronic pain G89.29 an d Sprain of deltoid ligament of left ankle, subsequent encounter S93.422D [facility] [address] [id number] [address] [place] [phone] Jul, Degenerative disc disease at L5-S1 level M51.36 [facility] [address] [id number] [address] [place] [phone] Jun, [facility] [address] [id number] [address] [place] [phone] Jun, Degenerative disc disease at L5-S1 level M51.36 [facility] [address] [id number] [address] [place] [phone] Jun, [facility] [address] [id number] [address] [place] [phone] Jun, [facility] [address] [id number] [address] [place] [phone] Jun, [facility] [address] [id number] [address] [place] [phone] May, [facility] [address] [id number] [address] [place] [phone] May, [facility] [address] [id number] [address] [place] [phone] May, Rib pain on left side R07.81 [facility] [address] [address] Apr, Morbid obesity due to excess calories E66.01 [place] [address] [address] Apr, Gastroenteritis K52.9 [place] [address] [address] Apr, Degenerative disc disease at L5-S1 level M51.36 [place] [address] [address] March, Degenerative disc disease at L5-S1 level M51.36 [place] [address] [address] March, Bipolar 1 disorder F31.9 ; A nemia D64.9 ; Hypopotassemia E87.6 ; Uncomplicated asthma, unspecified asthma severity J45.909 ; Anxiety F41.9 ; Chronic headaches R51 and Degenerative disc disease at L5-S1 level M51.36 [place] [address] [address] March, Degenerative disc disease at L5-S1 level M51.36 [place] [address] [address] March, Degenerative disc disease at L5-S1 level M51.36 [place] [address] [address] March, Uncomplicated asthma, unspec ified asthma severity J45.909 ; Hypoxemia R09.02 ; Chronic headaches R51 and Degenerative disc disease at L5-S1 level M51.36 [place] [address] [address] March, [place] [address] [address] Feb, Acquired equinus deformity o f left foot M21.6X2 [place] [address] [place] [address] Feb, Degenerative disc disease at L5-S1 level M51.36 [facility] [address] [facility] [id number] [address] [place] [phone] Feb, Degenerative disc disease at L5-S1 level M51.36 [facility] [address] [facility] [id number] [address] [place] [id number] Jan, Degenerative disc disease at L5-S1 level M51.36 [facility] [address] [facility] [id number] [address] [place] [id number] Jan, Degenerative disc disease at L5-S1 level M51.36 [facility] [address] [facility] [id number] [address] [place] [phone] Dec, Degenerative disc disease at L5-S1 level M51.36 [facility] [address] [place] [id number] [place] [phone] Dec, Overactive bladder N32.81 an d Degenerative disc disease at L5-S1 level M51.36 [facility] [address] [facility] [id number] [address] [place] [id number] Dec, Degenerative disc disease at L5-S1 level M51.36 [facility] [address] [facility] [id number] [address] [place] [phone] Dec, Degenerative disc disease at L5-S1 level M51.36 [facility] [address] [facility] [id number] [address] [place] [phone] Nov, [facility] [address] [facility] [id number] [address] [place] [phone] Nov, Chronic headaches R51 [facility] [address] [facility] [id number] [address] [place] [phone] Nov, Degenerative disc disease at L5-S1 level M51.36 [facility] [address] [facility] [id number] [address] [place] [phone] Nov, Left upper quadrant pain R10 .12 [facility] [address] [facility] [id number] [address] [place] [phone] Nov, Degenerative disc disease at L5-S1 level M51.36 [facility] [address] [facility] [id number] [address] [place] [phone] Nov, Degenerative disc disease at L5-S1 level M51.36 [facility] [address] [place] [id number] [place] [phone] Nov, Degenerative disc disease at L5-S1 level M51.36 [facility] [address] [place] [id number] [place] [phone] Nov, Degenerative disc disease at L5-S1 level M51.36 [facility] [address] [place] [id number] [place] [phone] Nov, Degenerative disc disease at L5-S1 level M51.36 [facility] [address] [place] [id number] [place] [phone] Oct, Degenerative disc disease at L5-S1 level M51.36 [facility] [address] [place] [id number] [place] [address] Sep, Degenerative disc disease at L5-S1 level M51.36 [facility] [address] [place] [id number] [place] [phone] Sep, Degenerative disc disease at L5-S1 level M51.36 ; Bipolar 1 disorder F31.9 ; Chronic headaches R51 ; Hypopotassemia E87.6 ; Uncomplicated asthma, unspecified asthma severity J45.909 ; Anxiety F41.9 ; Overactive bladder N32.81 and Anemia D64.9 [facility] [address] [place] [id number] [place] [phone] Sep, Degenerative disc disease at L5-S1 level M51.36 [facility] [address] [place] [id number] [place] [phone] Aug, [facility] [address] [address] 27 Aug, 2016 Degenerative disc disease at L5-S1 level M51.36 ; Chronic headaches R51 ; Bipolar 1 disorder F31.9 ; Overactive bladder N32.81 ; Anxiety F41.9 and Anemia D64.9 [facility] [address] [place] [id number] [place] [id number] 24 Aug, 2016 Degenerative disc disease at L5-S1 level M51.36 [facility] [address] [address] 18 Aug, 2016 [facility] [address] [place] [id number] [place] [phone] 14 Aug, 2016 [facility] [address] [address] 10 Aug, 2016 Degenerative disc disease at L5-S1 level M51.36 [facility] [address] [address] 28 Jul, 2016 Degenerative disc disease at L5-S1 level M51.36 [facility] [address] [place] [id number] [place] [phone] 27 Jul, 2016 [facility] [address] [address] 23 Jul, 2016 [facility] [address] [id number] 22 Jul, 2016 Degenerative disc disease at L5-S1 level M51.36 ; Pure hyperglyceridemia E78.1 ; Bipolar 1 disorder F31.9 ; Anemia D64.9 ; Overactive bladder N32.81 ; Hypopotassemia E87.6 ; Anxiety F41.9 ; Mild intermittent asthma without complication J45.20 and Chronic headaches R51 [facility] [address] [place] [id number] [place] [phone] 15 Jul, 2016 [facility] [address] [place] [id number] [place] [phone] 07 Jul, 2016 [facility] [address] [place] [id number] [place] [phone] Jun, [facility] [address] [facility] [id number] [address] [place] [phone] Jun, Bipolar 1 disorder F31.9 ; A nxiety F41.9 ; Overactive bladder N32.81 ; Chronic headaches R51 ; Degenerative disc disease at L5-S1 level M51.36 ; Hypopotassemia E87.6 ; Anemia D64.9 and Morbid obesity due to excess calories E66.01 [facility] [address] [facility] [id number] [address] [place] [phone] Jun, [place] [address] [place] [id number] [place] [phone] May, Overactive bladder N32.81 [place] [address] [place] [id number] [place] [phone] May, Bipolar 1 disorder F31.9 ; A nemia D64.9 ; Overactive bladder N32.81 ; Chronic headaches R51 ; Hypopotassemia E87.6 ; Degenerative disc disease at L5-S1 level M51.36 and Uncomplicated asthma, unspecified asthma severity J45.909 [place] [address] [place] [id number] [place] [phone] May, [place] [address] [place] [id number] [place] [phone] May, Chronic headaches R51 [place] [address] [place] [id number] [place] [phone] Apr, Chronic headaches R51 [facility] [address] [facility] [id number] [address] [place] [phone] March, Chronic headaches R51 [facility] [address] [place] [id number] [place] [phone] March, [facility] [address] [facility] [id number] [address] [place] [phone] Feb, Chronic headaches R51 and De generative disc disease at L5-S1 level M51.36 [place] [address] [facility] [id number] [address] [place] [phone] 19 Feb, 2016 Hypopotassemia E87.6 ; Anemi a D64.9 ; Overactive bladder N32.81 ; Chronic headaches R51 and Degenerative disc disease at L5-S1 level M51.36 [place] [address] [place] [id number] [place] [phone] 07 Feb, 2016 Bipolar 1 disorder F31.9 ; A nemia D64.9 and Overactive bladder N32.81 [place] [address] [place] [id number] [place] [phone] Feb, Scabies B86 ; Bipolar 1 diso rder F31.9 ; Anemia D64.9 ; Overactive bladder N32.81 ; Chronic headaches R51 ; Degenerative disc disease at L5-S1 level M51.36 and Wellness examination Z00.00 [place] [address] [place] [id number] [place] [phone] 17 Feb, 2009 [place] [address] [place] [id number] [place] [phone] Oct, IMMUNIZATIONS No Known Immunizations SOCIAL HISTORY Never Assessed REASON FOR VISIT dx PLAN OF CARE VITAL SIGNS MEDICATIONS Unknown [...] interstem replaced 05/2016 Hospitalization History [facility] [place]- Headache 12/18/2017
--- OUTSIDE RECORDS SUMMARY | 2019-11-27 06:43 | XMS REPORT ---
Author Author Tish MALCOLM Organization [facility] Address [address] [place] [address] Care Team Providers Care Enhanced Environmental Operator Name Role Phone CHARIS MALCOLM Unavailable PROBLEMS Type Condition ICD9-CM Code LUC31-DH Code Onset Dates Condition S tatus SNOMED Code Problem Morbid obesity due to excess calories E66.01 Active 977054348 Problem Obesity, morbid E66.01 Active 2381 38923 Problem Other chronic pain G89.29 Active 8 3002349 Problem Controlled type 2 diabetes m ellitus without complication, without long- term current use of insulin E11.9 Active 190050822 Problem Bipolar I disorder with depression F31.9 Active 70756671 Problem Chronic fatigue R53.82 Active 8422 9001 Problem Moderate persistent asthma with exacerbation J45.4 1 Active 705407649 Problem Chronic post-traumatic stress disorder (PTSD) F43. 12 Active 898191600 Problem Unsteady gait R26.81 Active 295467 08 Problem Chronic headaches R51 Active 43 8183152 Problem Anemia D64.9 Active 268046524 Problem Pure hyperglyceridemia E78.1 Active 501888205 Problem Overactive bladder N32.81 Active 2 25230174 Problem Uncomplicated asthma, unspecified asthma severity J45.909 Active 518091539 Problem Anxiety F41.9 Active 81603349 Problem Hypopotassemia E87.6 Active 81276 004 Problem Acquired equinus deformity of left foot M21.6X2 Active 91015084 Problem Degenerative disc disease at L5-S1 level M51.36 Active 06700040 Problem Hypoxemia R09.02 Active [id number] ALLERGIES No Information ENCOUNTERS Encounter Location Date Diagnosis [facility] [address] [facility] [id number] [address] [place] [phone] Aug, [facility] [address] [facility] [id number] [address] [place] [phone] Aug, [facility] [address] [place] [id number] [address] [place] [phone] Aug, [facility] [address] [facility] [id number] [address] [place] [phone] Aug, [facility] [address] [facility] [id number] [address] [place] [phone] Jul, Frequent headaches R51 [place] [address] [place] [id number] [place] [address] Jul, [place] [address] [place] [id number] [place] [phone] 19 Jul, 2018 Bipolar I disorder with depr ession F31.9 and Chronic post-traumatic stress disorder (PTSD) F43.12 [place] [address] [place] [id number] [place] [id number] 10 Jul, 2018 [place] [address] [address] 07 Jul, 2018 Other chronic pain G89.29 ; Dysuria R30.0 ; Degenerative disc disease at L5-S1 level M51.36 ; Uncomplicated asthma, unspecified asthma severity J45.909 ; Vagina, candidiasis B37.3 ; Glucose found in urine on examination R81 ; Family history of diabetes mellitus Z83.3 and Controlled type 2 diabetes mellitus without complication, without long-term current use of insulin E11.9 [place] [address] [place] [id number] [address] [place] [phone] Jun, Degenerative disc disease at L5-S1 level M51.36 [place] [address] [place] [id number] [address] [place] [phone] Jun, [place] [address] [place] [id number] [place] [phone] Jun, Medicare annual wellness vis it, initial Z00.00 [place] [address] [place] [id number] [address] [place] [phone] Jun, [facility] [address] [place] [id number] [address] [place] [phone] Jun, Bipolar I disorder with depr ession F31.9 and Chronic post-traumatic stress disorder (PTSD) F43.12 [facility] [address] [id number] [address] [place] [phone] Jun, Degenerative disc disease at L5-S1 level M51.36 [facility] [address] [id number] [address] [place] [phone] Jun, [facility] [address] [id number] [address] [place] [phone] May, [place] [address] [id number] [address] [place] [phone] May, [place] [address] [facility] [id number] [address] [place] [phone] Apr, [place] [address] [facility] [id number] [address] [place] [phone] 18 Apr, 2018 Unsteady gait R26.81 ; Chron ic fatigue R53.82 ; SOB (shortness of breath) R06.02 and Moderate persistent asthma with exacerbation J45.41 [place] [address] [facility] [id number] [address] [place] [phone] Apr, [place] [address] [facility] [id number] [address] [place] [phone] 05 Apr, 2018 Medicare annual wellness vis it, initial Z00.00 [place] [address] [id number] [address] [place] [id number] 10 Mar, 2018 [facility] [address] [facility] [id number] [address] [place] [phone] March, [place] [address] [facility] [id number] [address] [place] [phone] Feb, Medicare annual wellness vis it, initial Z00.00 ; Bipolar 1 disorder F31.9 ; Low back pain M54.5 and Other chronic pain G89.29 [place] [address] [address] Jan, [place] [address] [address] Dec, Frequent headaches R51 and D egenerative disc disease at L5-S1 level M51.36 [place] [address] [address] Nov, [facility] [address] [address] Nov, Chronic intractable headache , unspecified headache type R51 [facility] [place] [address] [address] Nov, Chronic headaches R51 and BM I 45.0-49.9, adult Z68.42 [place] [address] [address] Nov, [place] [address] [address] Nov, Obesity, morbid E66.01 ; Unc omplicated asthma, unspecified asthma severity J45.909 ; Anxiety F41.9 ; Pure hyperglyceridemia E78.1 and Family history of diabetes mellitus Z83.3 [place] [address] [address] Oct, Bronchitis J40 [place] [address] [address] Oct, Chronic headaches R51 [place] [address] [address] Sep, [place] [address] [address] Sep, Chronic headaches R51 ; Othe r chronic pain G89.29 ; Anemia D64.9 and Obesity, morbid E66.01 [place] [address] [address] Aug, Acute suppurative otitis med ia of right ear without spontaneous rupture of tympanic membrane, recurrence not specified H66.001 [facility] [address] [id number] [address] [place] [address] Aug, Other chronic pain G89.29 [facility] [address] [id number] [address] [place] [phone] Jul, Degenerative disc disease at L5-S1 level M51.36 [facility] [address] [id number] [address] [place] [address] 07 Jul, 2017 Other chronic pain G89.29 an d Sprain of deltoid ligament of left ankle, subsequent encounter S93.422D [facility] [address] [id number] [address] [place] [address] Jul, Degenerative disc disease at L5-S1 level M51.36 [facility] [address] [id number] [address] [place] [phone] Jun, [facility] [address] [id number] [address] [place] [address] Jun, Degenerative disc disease at L5-S1 level M51.36 [facility] [address] [id number] [address] [place] [phone] Jun, [facility] [address] [id number] [address] [place] [phone] Jun, [facility] [address] [id number] [address] [place] [phone] Jun, [facility] [address] [id number] [address] [place] [address] May, [facility] [address] [id number] [address] [place] [phone] May, [facility] [address] [id number] [address] [place] [address] May, Rib pain on left side R07.81 [facility] [address] [address] Apr, Morbid obesity due to excess calories E66.01 [place] [address] [address] Apr, Gastroenteritis K52.9 [place] [address] [address] Apr, Degenerative disc disease at L5-S1 level M51.36 [place] [address] [address] March, Degenerative disc disease at L5-S1 level M51.36 [place] [address] [address] March, Bipolar 1 disorder F31.9 ; A nemia D64.9 ; Hypopotassemia E87.6 ; Uncomplicated asthma, unspecified asthma severity J45.909 ; Anxiety F41.9 ; Chronic headaches R51 and Degenerative disc disease at L5-S1 level M51.36 [place] [address] [address] March, Degenerative disc disease at L5-S1 level M51.36 [place] [address] [address] March, Degenerative disc disease at L5-S1 level M51.36 [place] [address] [address] March, Uncomplicated asthma, unspec ified asthma severity J45.909 ; Hypoxemia R09.02 ; Chronic headaches R51 and Degenerative disc disease at L5-S1 level M51.36 [place] [address] [address] March, [place] [address] [address] Feb, Acquired equinus deformity o f left foot M21.6X2 [place] [address] [place] [address] Feb, Degenerative disc disease at L5-S1 level M51.36 [facility] [address] [facility] [id number] [address] [place] [address] Feb, Degenerative disc disease at L5-S1 level M51.36 [facility] [address] [facility] [id number] [address] [place] [address] Jan, Degenerative disc disease at L5-S1 level M51.36 [facility] [address] [facility] [id number] [address] [place] [address] Jan, Degenerative disc disease at L5-S1 level M51.36 [facility] [address] [facility] [id number] [address] [place] [address] Dec, Degenerative disc disease at L5-S1 level M51.36 [facility] [address] [place] [id number] [place] [address] Dec, Overactive bladder N32.81 an d Degenerative disc disease at L5-S1 level M51.36 [facility] [address] [facility] [id number] [address] [place] [id number] Dec, Degenerative disc disease at L5-S1 level M51.36 [facility] [address] [facility] [id number] [address] [place] [address] Dec, Degenerative disc disease at L5-S1 level M51.36 [facility] [address] [facility] [id number] [address] [place] [phone] Nov, [facility] [address] [facility] [id number] [address] [place] [phone] Nov, Chronic headaches R51 [facility] [address] [facility] [id number] [address] [place] [address] Nov, Degenerative disc disease at L5-S1 level M51.36 [facility] [address] [facility] [id number] [address] [place] [address] Nov, Left upper quadrant pain R10 .12 [facility] [address] [facility] [id number] [address] [place] [address] Nov, Degenerative disc disease at L5-S1 level M51.36 [facility] [address] [facility] [id number] [address] [place] [phone] Nov, Degenerative disc disease at L5-S1 level M51.36 [facility] [address] [place] [id number] [place] [id number] Nov, Degenerative disc disease at L5-S1 level M51.36 [facility] [address] [place] [id number] [place] [address] Nov, Degenerative disc disease at L5-S1 level M51.36 [facility] [address] [place] [id number] [place] [address] Nov, Degenerative disc disease at L5-S1 level M51.36 [facility] [address] [place] [id number] [place] [address] Oct, Degenerative disc disease at L5-S1 level M51.36 [facility] [address] [place] [id number] [place] [address] Sep, Degenerative disc disease at L5-S1 level M51.36 [facility] [address] [place] [id number] [place] [address] Sep, Degenerative disc disease at L5-S1 level M51.36 ; Bipolar 1 disorder F31.9 ; Chronic headaches R51 ; Hypopotassemia E87.6 ; Uncomplicated asthma, unspecified asthma severity J45.909 ; Anxiety F41.9 ; Overactive bladder N32.81 and Anemia D64.9 [facility] [address] [place] [id number] [place] [address] Sep, Degenerative disc disease at L5-S1 level M51.36 [facility] [address] [place] [id number] [place] [address] Aug, [facility] [address] [address] 27 Aug, 2016 Degenerative disc disease at L5-S1 level M51.36 ; Chronic headaches R51 ; Bipolar 1 disorder F31.9 ; Overactive bladder N32.81 ; Anxiety F41.9 and Anemia D64.9 [facility] [address] [place] [id number] [place] [address] 24 Aug, 2016 Degenerative disc disease at L5-S1 level M51.36 [facility] [address] [address] 18 Aug, 2016 [facility] [address] [place] [id number] [place] [address] 14 Aug, 2016 [facility] [address] [address] 10 Aug, 2016 Degenerative disc disease at L5-S1 level M51.36 [facility] [address] [address] 28 Jul, 2016 Degenerative disc disease at L5-S1 level M51.36 [facility] [address] [place] [id number] [address] [place] [address] 27 Jul, 2016 [facility] [address] [address] 23 Jul, 2016 [facility] [address] [address] 22 Jul, 2016 Degenerative disc disease at L5-S1 level M51.36 ; Pure hyperglyceridemia E78.1 ; Bipolar 1 disorder F31.9 ; Anemia D64.9 ; Overactive bladder N32.81 ; Hypopotassemia E87.6 ; Anxiety F41.9 ; Mild intermittent asthma without complication J45.20 and Chronic headaches R51 [facility] [address] [place] [id number] [place] [address] 15 Jul, 2016 [facility] [address] [place] [id number] [place] [address] 07 Jul, 2016 [facility] [address] [place] [id number] [place] [phone] Jun, [facility] [address] [facility] [id number] [address] [place] [address] Jun, Bipolar 1 disorder F31.9 ; A nxiety F41.9 ; Overactive bladder N32.81 ; Chronic headaches R51 ; Degenerative disc disease at L5-S1 level M51.36 ; Hypopotassemia E87.6 ; Anemia D64.9 and Morbid obesity due to excess calories E66.01 [facility] [address] [facility] [id number] [address] [place] [address] Jun, [place] [address] [place] [id number] [place] [address] May, Overactive bladder N32.81 [place] [address] [place] [id number] [place] [address] May, Bipolar 1 disorder F31.9 ; A nemia D64.9 ; Overactive bladder N32.81 ; Chronic headaches R51 ; Hypopotassemia E87.6 ; Degenerative disc disease at L5-S1 level M51.36 and Uncomplicated asthma, unspecified asthma severity J45.909 [place] [address] [place] [id number] [place] [address] May, [place] [address] [place] [id number] [place] [address] May, Chronic headaches R51 [place] [address] [place] [id number] [place] [address] Apr, Chronic headaches R51 [facility] [address] [facility] [id number] [address] [place] [address] March, Chronic headaches R51 [facility] [address] [place] [id number] [place] [address] March, [facility] [address] [facility] [id number] [address] [place] [phone] Feb, Chronic headaches R51 and De generative disc disease at L5-S1 level M51.36 [place] [address] [place] [id number] [place] [address] 19 Feb, 2016 Hypopotassemia E87.6 ; Anemi a D64.9 ; Overactive bladder N32.81 ; Chronic headaches R51 and Degenerative disc disease at L5-S1 level M51.36 [place] [address] [place] [id number] [address] [place] [address] Feb, Bipolar 1 disorder F31.9 ; A nemia D64.9 and Overactive bladder N32.81 [place] [address] [place] [id number] [address] [place] [address] Feb, Scabies B86 ; Bipolar 1 diso rder F31.9 ; Anemia D64.9 ; Overactive bladder N32.81 ; Chronic headaches R51 ; Degenerative disc disease at L5-S1 level M51.36 and Wellness examination Z00.00 [place] [address] [place] [id number] [place] [address] 17 Feb, 2009 [place] [address] [place] [id number] [address] [place] [address] Oct, IMMUNIZATIONS No Known Immunizations SOCIAL HISTORY Never Assessed REASON FOR VISIT Refill request PLAN OF CARE VITAL SIGNS MEDICATIONS Medication Instructions Dosage Frequency Start Date End Date Duration S tatus Neurontin 600 MG Orally Three times a day 1 tablet 8h 30 days Active RESULTS No Results PROCEDURES [...] interstem replaced 05/2016 Hospitalization History [facility]- Headache 12/18/2017
--- OUTSIDE RECORDS SUMMARY | 2019-11-27 06:43 | XMS REPORT ---
Author Author Tish MALCOLM Organization [facility] Address [address] [place] [address] Care Team Providers Care Informatics Physician Name Role Phone CHARIS MALCOLM Unavailable PROBLEMS Type Condition ICD9-CM Code PAH47-KZ Code Onset Dates Condition S tatus SNOMED Code Problem Morbid obesity due to excess calories E66.01 Active 892839901 Problem Obesity, morbid E66.01 Active 2381 82866 Problem Other chronic pain G89.29 Active 8 0554530 Problem Controlled type 2 diabetes m ellitus without complication, without long- term current use of insulin E11.9 Active 041701744 Problem Bipolar I disorder with depression F31.9 Active 89375231 Problem Chronic fatigue R53.82 Active 8422 9001 Problem Moderate persistent asthma with exacerbation J45.4 1 Active 988493546 Problem Chronic post-traumatic stress disorder (PTSD) F43. 12 Active 480686722 Problem Unsteady gait R26.81 Active 922037 08 Problem Chronic headaches R51 Active 43 1300487 Problem Anemia D64.9 Active 366572781 Problem Pure hyperglyceridemia E78.1 Active 943337576 Problem Overactive bladder N32.81 Active 2 92630626 Problem Uncomplicated asthma, unspecified asthma severity J45.909 Active 255689609 Problem Anxiety F41.9 Active 37817894 Problem Hypopotassemia E87.6 Active 21614 004 Problem Acquired equinus deformity of left foot M21.6X2 Active 01513508 Problem Degenerative disc disease at L5-S1 level M51.36 Active 91161234 Problem Hypoxemia R09.02 Active 654086176 ALLERGIES No Information ENCOUNTERS Encounter Location Date Diagnosis [facility] [address] [facility] [id number] [address] [place] [phone] Sep, [facility] [address] [facility] [id number] [address] [place] [phone] Aug, [facility] [address] [facility] [id number] [address] [place] [phone] Aug, [place] [address] [id number] [address] [place] [phone] Aug, [place] [address] [facility] [id number] [address] [place] [phone] Aug, Bipolar I disorder with depr ession F31.9 and Chronic post-traumatic stress disorder (PTSD) F43.12 [place] [address] [facility] [id number] [address] [place] [phone] Aug, Degenerative disc disease at L5-S1 level M51.36 [place] [address] [place] [id number] [address] [place] [phone] Jul, Controlled type 2 diabetes m ellitus without complication, without long-term current use of insulin E11.9 [place] [address] [facility] [id number] [address] [place] [phone] Jul, Frequent headaches R51 [place] [address] [facility] [id number] [address] [place] [phone] Jul, [place] [address] [facility] [id number] [address] [place] [phone] Jul, Bipolar I disorder with depr ession F31.9 and Chronic post-traumatic stress disorder (PTSD) F43.12 [place] [address] [facility] [id number] [address] [place] [phone] Jul, [place] [address] [facility] [id number] [address] [place] [phone] 07 Jul, 2018 Other chronic pain G89.29 ; Dysuria R30.0 ; Degenerative disc disease at L5-S1 level M51.36 ; Uncomplicated asthma, unspecified asthma severity J45.909 ; Vagina, candidiasis B37.3 ; Glucose found in urine on examination R81 ; Family history of diabetes mellitus Z83.3 and Controlled type 2 diabetes mellitus without complication, without long-term current use of insulin E11.9 [place] [address] [facility] [id number] [address] [place] [phone] Jun, Degenerative disc disease at L5-S1 level M51.36 [facility] [address] [facility] [id number] [address] [place] [phone] Jun, [facility] [address] [facility] [id number] [address] [place] [phone] Jun, Medicare annual wellness vis it, initial Z00.00 [facility] [address] [facility] [id number] [address] [place] [phone] Jun, [facility] [address] [facility] [id number] [address] [place] [phone] Jun, Bipolar I disorder with depr ession F31.9 and Chronic post-traumatic stress disorder (PTSD) F43.12 [place] [address] [facility] [id number] [address] [place] [phone] Jun, Degenerative disc disease at L5-S1 level M51.36 [facility] [address] [facility] [id number] [address] [place] [phone] Jun, [facility] [address] [facility] [id number] [address] [place] [phone] May, [facility] [address] [facility] [id number] [address] [place] [phone] May, [facility] [address] [facility] [id number] [address] [place] [phone] Apr, Degenerative disc disease at L5-S1 level M51.36 [facility] [address] [facility] [id number] [address] [place] [phone] 18 Apr, 2018 Unsteady gait R26.81 ; Chron ic fatigue R53.82 ; SOB (shortness of breath) R06.02 and Moderate persistent asthma with exacerbation J45.41 [facility] [address] [facility] [id number] [address] [place] [phone] Apr, Degenerative disc disease at L5-S1 level M51.36 [facility] [address] [facility] [id number] [address] [place] [phone] 05 Apr, 2018 Medicare annual wellness vis it, initial Z00.00 [place] [id number] [facility] [id number] [address] [place] [phone] 10 Mar, 2018 [place] [address] [facility] [id number] [address] [place] [phone] 04 Mar, 2018 [place] [address] [place] [id number] [place] [phone] 11 Feb, 2018 Medicare annual wellness vis it, initial Z00.00 ; Bipolar 1 disorder F31.9 ; Low back pain M54.5 and Other chronic pain G89.29 [place] [address] [place] [id number] [place] [phone] Jan, [place] [address] [place] [id number] [place] [phone] 22 Dec, 2017 Frequent headaches R51 and D egenerative disc disease at L5-S1 level M51.36 [place] [address] [place] [id number] [address] [place] [phone] Nov, [facility] [place] [address] [phone] Nov, Chronic intractable headache , unspecified headache type R51 [facility] [place] [address] [address] Nov, Chronic headaches R51 and BM I 45.0-49.9, adult Z68.42 [place] [address] [facility] [id number] [address] [place] [phone] Nov, [place] [address] [address] Nov, Obesity, morbid E66.01 ; Unc omplicated asthma, unspecified asthma severity J45.909 ; Anxiety F41.9 ; Pure hyperglyceridemia E78.1 and Family history of diabetes mellitus Z83.3 [place] [address] [id number] 15 Oct, 2017 Bronchitis J40 [facility] [address] [address] 06 Oct, 2017 Chronic headaches R51 [facility] [address] [address] Sep, [facility] [address] [address] Sep, Chronic headaches R51 ; Othe r chronic pain G89.29 ; Anemia D64.9 and Obesity, morbid E66.01 [place] [address] [address] Aug, Acute suppurative otitis med ia of right ear without spontaneous rupture of tympanic membrane, recurrence not specified H66.001 [place] [address] [address] Aug, Other chronic pain G89.29 [place] [address] [address] 18 Jul, 2017 Degenerative disc disease at L5-S1 level M51.36 [place] [address] [address] 07 Jul, 2017 Other chronic pain G89.29 an d Sprain of deltoid ligament of left ankle, subsequent encounter S93.422D [place] [address] [place] [id number] [address] [place] [phone] 05 Jul, 2017 Degenerative disc disease at L5-S1 level M51.36 [facility] [address] [place] [id number] [address] [place] [phone] Jun, [place] [address] [id number] Jun, Degenerative disc disease at L5-S1 level M51.36 [facility] [address] [id number] Jun, [facility] [address] [place] [id number] [address] [place] [phone] Jun, [facility] [address] [phone] Jun, [facility] [address] [place] [id number] [place] [address] May, [facility] [address] [address] May, [facility] [address] [address] May, Rib pain on left side R07.81 [facility] [address] [address] Apr, Morbid obesity due to excess calories E66.01 [place] [address] [address] Apr, Gastroenteritis K52.9 [facility] [address] [address] Apr, Degenerative disc disease at L5-S1 level M51.36 [place] [address] [address] March, Degenerative disc disease at L5-S1 level M51.36 [place] [address] [address] March, Bipolar 1 disorder F31.9 ; A nemia D64.9 ; Hypopotassemia E87.6 ; Uncomplicated asthma, unspecified asthma severity J45.909 ; Anxiety F41.9 ; Chronic headaches R51 and Degenerative disc disease at L5-S1 level M51.36 [facility] [address] [place] [id number] [address] [place] [phone] March, Degenerative disc disease at L5-S1 level M51.36 [place] [address] [place] [id number] [address] [place] [phone] March, Degenerative disc disease at L5-S1 level M51.36 [facility] [address] [address] March, Uncomplicated asthma, unspec ified asthma severity J45.909 ; Hypoxemia R09.02 ; Chronic headaches R51 and Degenerative disc disease at L5-S1 level M51.36 [place] [address] [address] March, [facility] [address] [address] Feb, Acquired equinus deformity o f left foot M21.6X2 [place] [address] [address] Feb, Degenerative disc disease at L5-S1 level M51.36 [place] [address] [address] Feb, Degenerative disc disease at L5-S1 level M51.36 [place] [address] [address] Jan, Degenerative disc disease at L5-S1 level M51.36 [place] [address] [address] Jan, Degenerative disc disease at L5-S1 level M51.36 [place] [address] [address] Dec, Degenerative disc disease at L5-S1 level M51.36 [place] [address] [place] [id number] [address] [place] [phone] Dec, Overactive bladder N32.81 an d Degenerative disc disease at L5-S1 level M51.36 [facility] [address] [place] [id number] [address] [place] [id number] Dec, Degenerative disc disease at L5-S1 level M51.36 [facility] [address] [place] [id number] [place] [address] [place] [address] Dec, Degenerative disc disease at L5-S1 level M51.36 [facility] [address] [id number] [address] [place] [phone] Nov, [facility] [address] [id number] [address] [place] [phone] Nov, Chronic headaches R51 [facility] [address] [id number] [address] [place] [phone] Nov, Degenerative disc disease at L5-S1 level M51.36 [facility] [address] [id number] [address] [place] [phone] Nov, Left upper quadrant pain R10 .12 [facility] [address] [id number] [address] [place] [id number] Nov, Degenerative disc disease at L5-S1 level M51.36 [facility] [address] [id number] [address] [place] [phone] Nov, Degenerative disc disease at L5-S1 level M51.36 [facility] [address] [id number] [address] [place] [phone] Nov, Degenerative disc disease at L5-S1 level M51.36 [facility] [address] [facility] [id number] [address] [place] [phone] Nov, Degenerative disc disease at L5-S1 level M51.36 [facility] [address] [id number] [address] [place] [phone] Nov, Degenerative disc disease at L5-S1 level M51.36 [facility] [address] [id number] [address] [place] [phone] Oct, Degenerative disc disease at L5-S1 level M51.36 [facility] [address] [id number] [address] [place] [id number] Sep, Degenerative disc disease at L5-S1 level M51.36 [facility] [address] [id number] [address] [place] [phone] Sep, Degenerative disc disease at L5-S1 level M51.36 ; Bipolar 1 disorder F31.9 ; Chronic headaches R51 ; Hypopotassemia E87.6 ; Uncomplicated asthma, unspecified asthma severity J45.909 ; Anxiety F41.9 ; Overactive bladder N32.81 and Anemia D64.9 [facility] [address] [facility] [id number] [address] [place] [phone] Sep, Degenerative disc disease at L5-S1 level M51.36 [facility] [address] [place] [id number] [address] [place] [phone] Aug, [facility] [address] [place] [id number] [place] [phone] Aug, Degenerative disc disease at L5-S1 level M51.36 ; Chronic headaches R51 ; Bipolar 1 disorder F31.9 ; Overactive bladder N32.81 ; Anxiety F41.9 and Anemia D64.9 [facility] [address] [place] [id number] [address] [place] [id number] Aug, Degenerative disc disease at L5-S1 level M51.36 [facility] [address] [place] [id number] [address] [place] [phone] 18 Aug, 2016 [facility] [address] [place] [id number] [address] [place] [phone] 14 Aug, 2016 [facility] [address] [facility] [id number] [address] [place] [phone] 10 Aug, 2016 Degenerative disc disease at L5-S1 level M51.36 [facility] [address] [facility] [id number] [address] [place] [phone] 28 Jul, 2016 Degenerative disc disease at L5-S1 level M51.36 [facility] [address] [facility] [id number] [address] [place] [phone] 27 Jul, 2016 [facility] [address] [facility] [id number] [address] [place] [phone] Jul, [place] [address] [address] Jul, Degenerative disc disease at L5-S1 level M51.36 ; Pure hyperglyceridemia E78.1 ; Bipolar 1 disorder F31.9 ; Anemia D64.9 ; Overactive bladder N32.81 ; Hypopotassemia E87.6 ; Anxiety F41.9 ; Mild intermittent asthma without complication J45.20 and Chronic headaches R51 [place] [address] [address] Jul, [place] [address] [address] Jul, [place] [address] [address] Jun, [place] [address] [address] Jun, Bipolar 1 disorder F31.9 ; A nxiety F41.9 ; Overactive bladder N32.81 ; Chronic headaches R51 ; Degenerative disc disease at L5-S1 level M51.36 ; Hypopotassemia E87.6 ; Anemia D64.9 and Morbid obesity due to excess calories E66.01 [place] [address] [address] Jun, [place] [address] [address] May, Overactive bladder N32.81 [place] [address] [address] May, Bipolar 1 disorder F31.9 ; A nemia D64.9 ; Overactive bladder N32.81 ; Chronic headaches R51 ; Hypopotassemia E87.6 ; Degenerative disc disease at L5-S1 level M51.36 and Uncomplicated asthma, unspecified asthma severity J45.[address] [address] May, [place] [address] [facility] [id number] [address] [place] [phone] May, Chronic headaches R51 [place] [address] [address] Apr, Chronic headaches R51 [place] [address] [address] March, Chronic headaches R51 [place] [address] [address] March, [place] [address] [address] Feb, Chronic headaches R51 and De generative disc disease at L5-S1 level M51.36 [place] [address] [address] Feb, Hypopotassemia E87.6 ; Anemi a D64.9 ; Overactive bladder N32.81 ; Chronic headaches R51 and Degenerative disc disease at L5-S1 level M51.36 [place] [address] [address] Feb, Bipolar 1 disorder F31.9 ; A nemia D64.9 and Overactive bladder N32.81 [place] [address] [address] Feb, Scabies B86 ; Bipolar 1 diso rder F31.9 ; Anemia D64.9 ; Overactive bladder N32.81 ; Chronic headaches R51 ; Degenerative disc disease at L5-S1 level M51.36 and Wellness examination Z00.00 [place] [address] [address] Feb, [place] [address] [address] Oct, IMMUNIZATIONS No Known Immunizations SOCIAL HISTORY Never Assessed REASON FOR VISIT BS ck PLAN OF CARE VITAL SIGNS MEDICATIONS Medication Instructions Dosage Frequency Start Date End Date Duration S tatus Metformin HCl 500 mg DX- E11.9 2 times a day with food 2 tablets Jul, Active RESULTS No Results PROCEDURES No Known [...] interstem replaced 05/2016 Hospitalization History [facility] [place]- Headache 12/18/2017
--- OUTSIDE RECORDS SUMMARY | 2019-11-27 06:43 | XMS REPORT ---
Author Author Tish MALCOLM Organization [facility] Address [address] [place] [address] Care Team Providers Care Associate Software Application Engineer Name Role Phone CHARIS MALCOLM Unavailable PROBLEMS Type Condition ICD9-CM Code PXI27-BX Code Onset Dates Condition S tatus SNOMED Code Problem Morbid obesity due to excess calories E66.01 Active 826348539 Problem Obesity, morbid E66.01 Active 2381 38590 Problem Other chronic pain G89.29 Active 8 7487827 Problem Controlled type 2 diabetes m ellitus without complication, without long- term current use of insulin E11.9 Active 592563120 Problem Bipolar I disorder with depression F31.9 Active 78959412 Problem Chronic fatigue R53.82 Active 8422 9001 Problem Moderate persistent asthma with exacerbation J45.4 1 Active 499667078 Problem Chronic post-traumatic stress disorder (PTSD) F43. 12 Active 019318436 Problem Unsteady gait R26.81 Active 332665 08 Problem Chronic headaches R51 Active 43 4151988 Problem Anemia D64.9 Active 941409216 Problem Pure hyperglyceridemia E78.1 Active 243552714 Problem Overactive bladder N32.81 Active 2 96347173 Problem Uncomplicated asthma, unspecified asthma severity J45.909 Active 586715254 Problem Anxiety F41.9 Active 92731518 Problem Hypopotassemia E87.6 Active 42618 004 Problem Acquired equinus deformity of left foot M21.6X2 Active 82397663 Problem Degenerative disc disease at L5-S1 level M51.36 Active 53041671 Problem Hypoxemia R09.02 Active 484181080 ALLERGIES No Information ENCOUNTERS Encounter Location Date Diagnosis [facility] [address] [facility] [id number] [address] [place] [id number] Aug, [facility] [address] [facility] [id number] [address] [place] [phone] Aug, [facility] [address] [place] [id number] [address] [place] [phone] Aug, [facility] [address] [facility] [id number] [address] [place] [phone] Aug, [facility] [address] [facility] [id number] [address] [place] [phone] Jul, Frequent headaches R51 [place] [address] [place] [id number] [place] [phone] Jul, [place] [address] [place] [id number] [place] [phone] 19 Jul, 2018 Bipolar I disorder with depr ession F31.9 and Chronic post-traumatic stress disorder (PTSD) F43.12 [place] [address] [place] [id number] [place] [phone] 10 Jul, 2018 [place] [address] [address] 07 Jul, 2018 Other chronic pain G89.29 ; Dysuria R30.0 ; Degenerative disc disease at L5-S1 level M51.36 ; Uncomplicated asthma, unspecified asthma severity J45.909 ; Vagina, candidiasis B37.3 ; Glucose found in urine on examination R81 ; Family history of diabetes mellitus Z83.3 and Controlled type 2 diabetes mellitus without complication, without long-term current use of insulin E11.9 [place] [address] [place] [id number] [address] [place] [phone] Jun, Degenerative disc disease at L5-S1 level M51.36 [place] [address] [place] [id number] [place] [phone] Jun, [place] [address] [place] [id number] [place] [phone] Jun, Medicare annual wellness vis it, initial Z00.00 [place] [address] [place] [id number] [place] [phone] Jun, [facility] [address] [place] [id number] [place] [phone] Jun, Bipolar I disorder with depr ession F31.9 and Chronic post-traumatic stress disorder (PTSD) F43.12 [facility] [address] [id number] [address] [place] [id number] Jun, Degenerative disc disease at L5-S1 level M51.36 [facility] [address] [id number] [address] [place] [id number] Jun, [facility] [address] [id number] [address] [place] [phone] May, [place] [address] [id number] [address] [place] [phone] May, [place] [address] [facility] [id number] [address] [place] [phone] Apr, [place] [address] [facility] [id number] [address] [place] [id number] 18 Apr, 2018 Unsteady gait R26.81 ; Chron ic fatigue R53.82 ; SOB (shortness of breath) R06.02 and Moderate persistent asthma with exacerbation J45.41 [place] [address] [facility] [id number] [address] [place] [phone] Apr, [place] [address] [facility] [id number] [address] [place] [id number] 05 Apr, 2018 Medicare annual wellness vis it, initial Z00.00 [place] [address] [id number] [address] [place] [id number] 10 Mar, 2018 [facility] [address] [facility] [id number] [address] [place] [phone] March, [place] [address] [facility] [id number] [address] [place] [phone] Feb, Medicare annual wellness vis it, initial Z00.00 ; Bipolar 1 disorder F31.9 ; Low back pain M54.5 and Other chronic pain G89.29 [place] [address] [address] Jan, [place] [address] [address] Dec, Frequent headaches R51 and D egenerative disc disease at L5-S1 level M51.36 [place] [address] [address] Nov, [facility]ALK [facility] [address] [id number] Nov, Chronic intractable headache , unspecified headache type R51 [facility] WALK IN [place] [address] [address] Nov, Chronic headaches R51 and BM I 45.0-49.9, adult Z68.42 [place] [address] [address] Nov, [place] [address] [address] Nov, Obesity, morbid E66.01 ; Unc omplicated asthma, unspecified asthma severity J45.909 ; Anxiety F41.9 ; Pure hyperglyceridemia E78.1 and Family history of diabetes mellitus Z83.3 [place] [address] [address] Oct, Bronchitis J40 [place] [address] [address] Oct, Chronic headaches R51 [place] [address] [address] Sep, [place] [address] [address] Sep, Chronic headaches R51 ; Othe r chronic pain G89.29 ; Anemia D64.9 and Obesity, morbid E66.01 [place] [address] [address] Aug, Acute suppurative otitis med ia of right ear without spontaneous rupture of tympanic membrane, recurrence not specified H66.001 [facility] [address] [id number] [address] [place] [id number] Aug, Other chronic pain G89.29 [facility] [address] [id number] [address] [place] [id number] Jul, Degenerative disc disease at L5-S1 level M51.36 [facility] [address] [id number] [address] [place] [id number] 07 Jul, 2017 Other chronic pain G89.29 an d Sprain of deltoid ligament of left ankle, subsequent encounter S93.422D [facility] [address] [id number] [address] [place] [id number] Jul, Degenerative disc disease at L5-S1 level M51.36 [facility] [address] [id number] [address] [place] [id number] Jun, [facility] [address] [id number] [address] [place] [phone] Jun, Degenerative disc disease at L5-S1 level M51.36 [facility] [address] [id number] [address] [place] [phone] Jun, [facility] [address] [id number] [address] [place] [phone] Jun, [facility] [address] [id number] [address] [place] [phone] Jun, [facility] [address] [id number] [address] [place] [phone] May, [facility] [address] [id number] [address] [place] [phone] May, [facility] [address] [id number] [address] [place] [phone] May, Rib pain on left side R07.81 [facility] [address] [address] Apr, Morbid obesity due to excess calories E66.01 [place] [address] [address] Apr, Gastroenteritis K52.9 [place] [address] [address] Apr, Degenerative disc disease at L5-S1 level M51.36 [place] [address] [address] March, Degenerative disc disease at L5-S1 level M51.36 [place] [address] [address] March, Bipolar 1 disorder F31.9 ; A nemia D64.9 ; Hypopotassemia E87.6 ; Uncomplicated asthma, unspecified asthma severity J45.909 ; Anxiety F41.9 ; Chronic headaches R51 and Degenerative disc disease at L5-S1 level M51.36 [place] [address] [address] March, Degenerative disc disease at L5-S1 level M51.36 [place] [address] [address] March, Degenerative disc disease at L5-S1 level M51.36 [place] [address] [address] March, Uncomplicated asthma, unspec ified asthma severity J45.909 ; Hypoxemia R09.02 ; Chronic headaches R51 and Degenerative disc disease at L5-S1 level M51.36 [place] [address] [address] March, [place] [address] [address] Feb, Acquired equinus deformity o f left foot M21.6X2 [place] [address] [place] [address] Feb, Degenerative disc disease at L5-S1 level M51.36 [facility] [address] [facility] [id number] [address] [place] [id number] Feb, Degenerative disc disease at L5-S1 level M51.36 [facility] [address] [facility] [id number] [address] [place] [id number] Jan, Degenerative disc disease at L5-S1 level M51.36 [facility] [address] [facility] [id number] [address] [place] [id number] Jan, Degenerative disc disease at L5-S1 level M51.36 [facility] [address] [facility] [id number] [address] [place] [phone] Dec, Degenerative disc disease at L5-S1 level M51.36 [facility] [address] [place] [id number] [place] [id number] Dec, Overactive bladder N32.81 an d Degenerative disc disease at L5-S1 level M51.36 [facility] [address] [facility] [id number] [address] [place] [id number] Dec, Degenerative disc disease at L5-S1 level M51.36 [facility] [address] [facility] [id number] [address] [place] [id number] Dec, Degenerative disc disease at L5-S1 level M51.36 [facility] [address] [facility] [id number] [address] [place] [id number] Nov, [facility] [address] [facility] [id number] [address] [place] [phone] Nov, Chronic headaches R51 [facility] [address] [facility] [id number] [address] [place] [id number] Nov, Degenerative disc disease at L5-S1 level M51.36 [facility] [address] [facility] [id number] [address] [place] [phone] Nov, Left upper quadrant pain R10 .12 [facility] [address] [facility] [id number] [address] [place] [id number] Nov, Degenerative disc disease at L5-S1 level M51.36 [facility] [address] [facility] [id number] [address] [place] [id number] Nov, Degenerative disc disease at L5-S1 level M51.36 [facility] [address] [place] [id number] [place] [id number] Nov, Degenerative disc disease at L5-S1 level M51.36 [facility] [address] [place] [id number] [place] [id number] Nov, Degenerative disc disease at L5-S1 level M51.36 [facility] [address] [place] [id number] [place] [address] Nov, Degenerative disc disease at L5-S1 level M51.36 [facility] [address] [place] [id number] [place] [phone] Oct, Degenerative disc disease at L5-S1 level M51.36 [facility] [address] [place] [id number] [place] [address] Sep, Degenerative disc disease at L5-S1 level M51.36 [facility] [address] [place] [id number] [place] [address] Sep, Degenerative disc disease at L5-S1 level M51.36 ; Bipolar 1 disorder F31.9 ; Chronic headaches R51 ; Hypopotassemia E87.6 ; Uncomplicated asthma, unspecified asthma severity J45.909 ; Anxiety F41.9 ; Overactive bladder N32.81 and Anemia D64.9 [facility] [address] [place] [id number] [place] [id number] Sep, Degenerative disc disease at L5-S1 level M51.36 [facility] [address] [place] [id number] [place] [phone] Aug, [facility] [address] [address] 27 Aug, 2016 Degenerative disc disease at L5-S1 level M51.36 ; Chronic headaches R51 ; Bipolar 1 disorder F31.9 ; Overactive bladder N32.81 ; Anxiety F41.9 and Anemia D64.9 [facility] [address] [place] [id number] [place] [id number] 24 Aug, 2016 Degenerative disc disease at L5-S1 level M51.36 [facility] [address] [id number] 18 Aug, 2016 [facility] [address] [place] [id number] [place] [phone] 14 Aug, 2016 [facility] [address] [id number] 10 Aug, 2016 Degenerative disc disease at L5-S1 level M51.36 [facility] [address] [address] 28 Jul, 2016 Degenerative disc disease at L5-S1 level M51.36 [facility] [address] [place] [id number] [address] [place] [id number] 27 Jul, 2016 [facility] [address] [address] 23 Jul, 2016 [facility] [address] [address] 22 Jul, 2016 Degenerative disc disease at L5-S1 level M51.36 ; Pure hyperglyceridemia E78.1 ; Bipolar 1 disorder F31.9 ; Anemia D64.9 ; Overactive bladder N32.81 ; Hypopotassemia E87.6 ; Anxiety F41.9 ; Mild intermittent asthma without complication J45.20 and Chronic headaches R51 [facility] [address] [place] [id number] [place] [id number] 15 Jul, 2016 [facility] [address] [place] [id number] [place] [phone] 07 Jul, 2016 [facility] [address] [place] [id number] [place] [id number] Jun, [facility] [address] [facility] [id number] [address] [place] [id number] Jun, Bipolar 1 disorder F31.9 ; A nxiety F41.9 ; Overactive bladder N32.81 ; Chronic headaches R51 ; Degenerative disc disease at L5-S1 level M51.36 ; Hypopotassemia E87.6 ; Anemia D64.9 and Morbid obesity due to excess calories E66.01 [facility] [address] [facility] [id number] [address] [place] [phone] Jun, [place] [address] [place] [id number] [place] [id number] May, Overactive bladder N32.81 [place] [address] [place] [id number] [place] [id number] May, Bipolar 1 disorder F31.9 ; A nemia D64.9 ; Overactive bladder N32.81 ; Chronic headaches R51 ; Hypopotassemia E87.6 ; Degenerative disc disease at L5-S1 level M51.36 and Uncomplicated asthma, unspecified asthma severity J45.909 [place] [address] [place] [id number] [place] [phone] May, [place] [address] [place] [id number] [place] [phone] May, Chronic headaches R51 [place] [address] [place] [id number] [place] [phone] Apr, Chronic headaches R51 [facility] [address] [facility] [id number] [address] [place] [phone] March, Chronic headaches R51 [facility] [address] [place] [id number] [place] [id number] March, [facility] [address] [facility] [id number] [address] [place] [phone] Feb, Chronic headaches R51 and De generative disc disease at L5-S1 level M51.36 [place] [address] [place] [id number] [place] [id number] 19 Feb, 2016 Hypopotassemia E87.6 ; Anemi a D64.9 ; Overactive bladder N32.81 ; Chronic headaches R51 and Degenerative disc disease at L5-S1 level M51.36 [place] [address] [place] [id number] [place] [address] 07 Feb, 2016 Bipolar 1 disorder F31.9 ; A nemia D64.9 and Overactive bladder N32.81 [place] [address] [address] Feb, Scabies B86 ; Bipolar 1 diso rder F31.9 ; Anemia D64.9 ; Overactive bladder N32.81 ; Chronic headaches R51 ; Degenerative disc disease at L5-S1 level M51.36 and Wellness examination Z00.00 [place] [address] [place] [id number] [place] [id number] 17 Feb, 2009 [place] [address] [place] [id number] [place] [phone] Oct, IMMUNIZATIONS No Known Immunizations SOCIAL HISTORY Never Assessed REASON FOR VISIT Controlled Med Refill PLAN OF CARE VITAL SIGNS MEDICATIONS Medication Instructions Dosage Frequency Start Date End Date Duration S tatus Hydrocodone-Ibuprofen 7.5-200 MG Orally every 6 hrs 1 tablet as nee ded 6h Jun, 28 days Active RESULTS No Results PROCEDURES No [...] interstem replaced 05/2016 Hospitalization History [facility]- Headache 12/18/2017
--- OUTSIDE RECORDS SUMMARY | 2019-11-27 06:43 | XMS REPORT ---
Author Author Tish NIEVES Organization [facility] Address [address] [place] [address] Care Team Providers Care Land Degradation Analyst Name Role Phone EZEQUIEL NIELS Unavailable PROBLEMS Type Condition ICD9-CM Code [id number] Code Onset Dates Condition S tatus SNOMED Code Problem Morbid obesity due to excess calories E66.01 Active 363634217 Problem Obesity, morbid E66.01 Active 2381 89575 Problem Other chronic pain G89.29 Active 8 3604141 Problem Controlled type 2 diabetes m ellitus without complication, without long- term current use of insulin E11.9 Active 671151619 Problem Bipolar I disorder with depression F31.9 Active 38157131 Problem Chronic fatigue R53.82 Active 8422 9001 Problem Moderate persistent asthma with exacerbation J45.4 1 Active 041215635 Problem Chronic post-traumatic stress disorder (PTSD) F43. 12 Active 950908754 Problem Unsteady gait R26.81 Active 359647 08 Problem Chronic headaches R51 Active 43 1962648 Problem Anemia D64.9 Active 785964252 Problem Pure hyperglyceridemia E78.1 Active 249888148 Problem Overactive bladder N32.81 Active 2 52251092 Problem Uncomplicated asthma, unspecified asthma severity J45.909 Active 583279448 Problem Anxiety F41.9 Active 95401129 Problem Hypopotassemia E87.6 Active 82473 004 Problem Acquired equinus deformity of left foot M21.6X2 Active 29670951 Problem Degenerative disc disease at L5-S1 level M51.36 Active 31977661 Problem Hypoxemia R09.02 Active 732151338 ALLERGIES No Information ENCOUNTERS Encounter Location Date Diagnosis [facility] [address] [facility] [id number] [address] [place] [address] Sep, [facility] [address] [facility] [id number] [address] [place] [address] Aug, [facility] [address] [place] [id number] [address] [place] [address] Aug, [place] [address] [id number] [address] [place] [address] Aug, [place] [address] [facility] [id number] [address] [place] [address] Aug, Bipolar I disorder with depr ession F31.9 and Chronic post-traumatic stress disorder (PTSD) F43.12 [place] [address] [id number] [address] [place] [address] Aug, Degenerative disc disease at L5-S1 level M51.36 [place] [address] [facility] [id number] [address] [place] [address] Jul, Controlled type 2 diabetes m ellitus without complication, without long-term current use of insulin E11.9 [place] [address] [facility] [id number] [address] [place] [address] Jul, Frequent headaches R51 [place] [address] [id number] [address] [place] [address] Jul, [place] [address] [facility] [id number] [address] [place] [address] Jul, Bipolar I disorder with depr ession F31.9 and Chronic post-traumatic stress disorder (PTSD) F43.12 [place] [address] [facility] [id number] [address] [place] [address] Jul, [place] [address] [id number] [address] [place] [address] 07 Jul, 2018 Other chronic pain G89.29 ; Dysuria R30.0 ; Degenerative disc disease at L5-S1 level M51.36 ; Uncomplicated asthma, unspecified asthma severity J45.909 ; Vagina, candidiasis B37.3 ; Glucose found in urine on examination R81 ; Family history of diabetes mellitus Z83.3 and Controlled type 2 diabetes mellitus without complication, without long-term current use of insulin E11.9 [place] [address] [facility] [id number] [address] [place] [address] Jun, Degenerative disc disease at L5-S1 level M51.36 [facility] [address] [facility] [id number] [address] [place] [address] Jun, [facility] [address] [facility] [id number] [address] [place] [address] Jun, Medicare annual wellness vis it, initial Z00.00 [facility] [address] [facility] [id number] [address] [place] [address] Jun, [facility] [address] [facility] [id number] [address] [place] [phone] Jun, Bipolar I disorder with depr ession F31.9 and Chronic post-traumatic stress disorder (PTSD) F43.12 [place] [address] [facility] [id number] [address] [place] [address] Jun, Degenerative disc disease at L5-S1 level M51.36 [facility] [address] [facility] [id number] [address] [place] [address] Jun, [facility] [address] [place] [id number] [address] [place] [address] May, [facility] [address] [facility] [id number] [address] [place] [address] May, [facility] [address] [place] [id number] [address] [place] [address] Apr, Degenerative disc disease at L5-S1 level M51.36 [facility] [address] [facility] [id number] [address] [place] [address] 18 Apr, 2018 Unsteady gait R26.81 ; Chron ic fatigue R53.82 ; SOB (shortness of breath) R06.02 and Moderate persistent asthma with exacerbation J45.41 [facility] [address] [facility] [id number] [address] [place] [address] Apr, Degenerative disc disease at L5-S1 level M51.36 [facility] [address] [place] [id number] [address] [place] [address] 05 Apr, 2018 Medicare annual wellness vis it, initial Z00.00 [facility] [address] [facility] [id number] [address] [place] [address] 10 Mar, 2018 [facility] [address] [facility] [id number] [address] [place] [address] 04 Mar, 2018 [place] [address] [facility] [id number] [address] [place] [address] 11 Feb, 2018 Medicare annual wellness vis it, initial Z00.00 ; Bipolar 1 disorder F31.9 ; Low back pain M54.5 and Other chronic pain G89.29 [place] [address] [place] [id number] [address] [place] [address] Jan, [place] [address] [place] [id number] [address] [place] [address] 22 Dec, 2017 Frequent headaches R51 and D egenerative disc disease at L5-S1 level M51.36 [place] [address] [place] [address] Nov, [facility] [place] [address] [place] [id number] [address] [place] [address] Nov, Chronic intractable headache , unspecified headache type R51 [facility] [place] [address] [place] [id number] [address] [place] [address] Nov, Chronic headaches R51 and BM I 45.0-49.9, adult Z68.42 [place] [address] [facility] [id number] [address] [place] [address] Nov, [place] [address] [address] Nov, Obesity, morbid E66.01 ; Unc omplicated asthma, unspecified asthma severity J45.909 ; Anxiety F41.9 ; Pure hyperglyceridemia E78.1 and Family history of diabetes mellitus Z83.3 [place] [address] [address] 15 Oct, 2017 Bronchitis J40 [facility] [address] [address] 06 Oct, 2017 Chronic headaches R51 [place] [address] [place] [id number] [place] [address] Sep, [place] [address] [address] Sep, Chronic headaches R51 ; Othe r chronic pain G89.29 ; Anemia D64.9 and Obesity, morbid E66.01 [place] [address] [address] Aug, Acute suppurative otitis med ia of right ear without spontaneous rupture of tympanic membrane, recurrence not specified H66.001 [place] [address] [address] Aug, Other chronic pain G89.29 [place] [address] [address] 18 Jul, 2017 Degenerative disc disease at L5-S1 level M51.36 [place] [address] [address] 07 Jul, 2017 Other chronic pain G89.29 an d Sprain of deltoid ligament of left ankle, subsequent encounter S93.422D [place] [address] [place] [id number] [address] [place] [address] 05 Jul, 2017 Degenerative disc disease at L5-S1 level M51.36 [place] [address] [place] [id number] [address] [place] [address] Jun, [place] [address] [place] [id number] [place] [address] Jun, Degenerative disc disease at L5-S1 level M51.36 [place] [address] [place] [id number] [place] [address] Jun, [facility] [address] [place] [address] Jun, [facility] [address] [place] [id number] [address] [place] [address] Jun, [facility] [address] [facility] [id number] [address] [place] [address] May, [facility] [address] [place] [id number] [address] [place] [address] May, [facility] [address] [place] [id number] [place] [address] May, Rib pain on left side R07.81 [facility] [address] [place] [id number] [address] [place] [address] Apr, Morbid obesity due to excess calories E66.01 [place] [address] [address] Apr, Gastroenteritis K52.9 [facility] [address] [address] Apr, Degenerative disc disease at L5-S1 level M51.36 [place] [address] [place] [id number] [address] [place] [address] March, Degenerative disc disease at L5-S1 level M51.36 [place] [address] [place] [id number] [address] [place] [address] March, Bipolar 1 disorder F31.9 ; A nemia D64.9 ; Hypopotassemia E87.6 ; Uncomplicated asthma, unspecified asthma severity J45.909 ; Anxiety F41.9 ; Chronic headaches R51 and Degenerative disc disease at L5-S1 level M51.36 [facility] [address] [place] [id number] [address] [place] [address] March, Degenerative disc disease at L5-S1 level M51.36 [facility] [address] [place] [id number] [address] [place] [address] March, Degenerative disc disease at L5-S1 level M51.36 [place] [address] [address] March, Uncomplicated asthma, unspec ified asthma severity J45.909 ; Hypoxemia R09.02 ; Chronic headaches R51 and Degenerative disc disease at L5-S1 level M51.36 [place] [address] [address] March, [place] [address] [address] Feb, Acquired equinus deformity o f left foot M21.6X2 [place] [address] [address] Feb, Degenerative disc disease at L5-S1 level M51.36 [place] [address] [address] Feb, Degenerative disc disease at L5-S1 level M51.36 [place] [address] [address] Jan, Degenerative disc disease at L5-S1 level M51.36 [place] [address] [address] Jan, Degenerative disc disease at L5-S1 level M51.36 [place] [address] [place] [id number] [address] [place] [address] Dec, Degenerative disc disease at L5-S1 level M51.36 [place] [address] [place] [id number] [address] [place] [address] Dec, Overactive bladder N32.81 an d Degenerative disc disease at L5-S1 level M51.36 [place] [address] [place] [id number] [address] [place] [address] Dec, Degenerative disc disease at L5-S1 level M51.36 [place] [address] [place] [id number] [address] [place] [address] Dec, Degenerative disc disease at L5-S1 level M51.36 [facility] [address] [facility] [id number] [address] [place] [address] Nov, [facility] [address] [facility] [id number] [address] [place] [address] Nov, Chronic headaches R51 [facility] [address] [id number] [address] [place] [address] Nov, Degenerative disc disease at L5-S1 level M51.36 [facility] [address] [id number] [address] [place] [address] Nov, Left upper quadrant pain R10 .12 [facility] [address] [id number] [address] [place] [address] Nov, Degenerative disc disease at L5-S1 level M51.36 [facility] [address] [facility] [id number] [address] [place] [address] Nov, Degenerative disc disease at L5-S1 level M51.36 [facility] [address] [facility] [id number] [address] [place] [address] Nov, Degenerative disc disease at L5-S1 level M51.36 [facility] [address] [facility] [id number] [address] [place] [address] Nov, Degenerative disc disease at L5-S1 level M51.36 [facility] [address] [facility] [id number] [address] [place] [address] Nov, Degenerative disc disease at L5-S1 level M51.36 [facility] [address] [facility] [id number] [address] [place] [address] Oct, Degenerative disc disease at L5-S1 level M51.36 [facility] [address] [facility] [id number] [address] [place] [address] Sep, Degenerative disc disease at L5-S1 level M51.36 [facility] [address] [facility] [id number] [address] [place] [address] Sep, Degenerative disc disease at L5-S1 level M51.36 ; Bipolar 1 disorder F31.9 ; Chronic headaches R51 ; Hypopotassemia E87.6 ; Uncomplicated asthma, unspecified asthma severity J45.909 ; Anxiety F41.9 ; Overactive bladder N32.81 and Anemia D64.9 [facility] [address] [facility] [id number] [address] [place] [address] Sep, Degenerative disc disease at L5-S1 level M51.36 [facility] [address] [facility] [id number] [address] [place] [address] Aug, [facility] [address] [place] [id number] [place] [address] Aug, Degenerative disc disease at L5-S1 level M51.36 ; Chronic headaches R51 ; Bipolar 1 disorder F31.9 ; Overactive bladder N32.81 ; Anxiety F41.9 and Anemia D64.9 [facility] [address] [facility] [id number] [address] [place] [address] Aug, Degenerative disc disease at L5-S1 level M51.36 [facility] [address] [facility] [id number] [address] [place] [address] 18 Aug, 2016 [facility] [address] [place] [id number] [address] [place] [address] 14 Aug, 2016 [facility] [address] [facility] [id number] [address] [place] [address] 10 Aug, 2016 Degenerative disc disease at L5-S1 level M51.36 [facility] [address] [facility] [id number] [address] [place] [address] 28 Jul, 2016 Degenerative disc disease at L5-S1 level M51.36 [facility] [address] [facility] [id number] [address] [place] [address] 27 Jul, 2016 [facility] [address] [facility] [id number] [address] [place] [address] Jul, [place] [address] [address] Jul, Degenerative disc disease at L5-S1 level M51.36 ; Pure hyperglyceridemia E78.1 ; Bipolar 1 disorder F31.9 ; Anemia D64.9 ; Overactive bladder N32.81 ; Hypopotassemia E87.6 ; Anxiety F41.9 ; Mild intermittent asthma without complication J45.20 and Chronic headaches R51 [place] [address] [address] Jul, [place] [address] [address] Jul, [place] [address] [address] Jun, [address] [address] Jun, Bipolar 1 disorder F31.9 ; A nxiety F41.9 ; Overactive bladder N32.81 ; Chronic headaches R51 ; Degenerative disc disease at L5-S1 level M51.36 ; Hypopotassemia E87.6 ; Anemia D64.9 and Morbid obesity due to excess calories E66.01 [place] [address] [address] Jun, [place] [address] [address] May, Overactive bladder N32.81 [place] [address] [address] May, Bipolar 1 disorder F31.9 ; A nemia D64.9 ; Overactive bladder N32.81 ; Chronic headaches R51 ; Hypopotassemia E87.6 ; Degenerative disc disease at L5-S1 level M51.36 and Uncomplicated asthma, unspecified asthma severity J45.[address] [address] May, [facility] [address] [facility] [id number] [address] [place] [address] May, Chronic headaches R51 [facility] [address] [facility] [id number] [address] [place] [address] Apr, Chronic headaches R51 [facility] [address] [place] [address] March, Chronic headaches R51 [place] [address] [address] March, [place] [address] [address] Feb, Chronic headaches R51 and De generative disc disease at L5-S1 level M51.36 [place] [address] [address] Feb, Hypopotassemia E87.6 ; Anemi a D64.9 ; Overactive bladder N32.81 ; Chronic headaches R51 and Degenerative disc disease at L5-S1 level M51.36 [place] [address] [address] Feb, Bipolar 1 disorder F31.9 ; A nemia D64.9 and Overactive bladder N32.81 [place] [address] [address] Feb, Scabies B86 ; Bipolar 1 diso rder F31.9 ; Anemia D64.9 ; Overactive bladder N32.81 ; Chronic headaches R51 ; Degenerative disc disease at L5-S1 level M51.36 and Wellness examination Z00.00 [place] [address] [address] Feb, [place] [address] [place] [id number] [address] [place] [address] Oct, IMMUNIZATIONS No Known Immunizations SOCIAL HISTORY Never Assessed REASON FOR VISIT PT follow-up PLAN OF CARE Activity Details Follow Up 3 Weeks Reason:F/U PT VITAL SIGNS MEDICATIONS Unknown Medications RESULTS No Results PROCEDURES Procedure Date Ordered Result Body Site THERAPEUTIC EXERCISES May 22, 2018 INSTRUCTIONS MEDICATIONS ADMINISTERED No Known Medications [...] interstem replaced 05/2016 Hospitalization History [facility] [place]- Headache 12/18/2017
--- OUTSIDE RECORDS SUMMARY | 2019-11-27 06:44 | XMS REPORT ---
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 Active 79823636 Problem Chronic fatigue R53.82 Active 8422 9001 Problem Moderate persistent asthma with exacerbation J45.4 1 Active 209324140 Problem Other chronic pain G89.29 Active 8 0873765 Problem Morbid obesity due to excess calories E66.01 Active 202359799 Problem Unsteady gait R26.81 Active 776577 08 Problem Obesity, morbid E66.01 Active 2381 62841 Problem Pure hyperglyceridemia E78.1 Active 293368087 Problem Overactive bladder N32.81 Active 2 91208365 Problem Anemia D64.9 Active 333243312 Problem Hypopotassemia E87.6 Active 00038 004 Problem Bipolar 1 disorder F31.9 Active 3 45152309 Problem Degenerative disc disease at L5-S1 level M51.36 Active 33897388 Problem Chronic headaches R51 Active 43 6562557 Problem Uncomplicated asthma, unspecified asthma severity J45.909 Active [id number] ALLERGIES No Information ENCOUNTERS Encounter Location Date Diagnosis [facility] [place] [address] [facility]NOTE 3] [id number] [address] [place] [phone] Jun, [facility] [place] [address] [facility]NOTE 3] [id number] [address] [place] [phone] Jun, [facility] [place] [address] [facility]NOTE 3] [id number] [address] [place] [address] Jun, [facility] [place] [address] [facility]NOTE [facility]] [id number] [address] [place] [address] May, [facility] [place] [address] [id number] [address] [place] [phone] May, [facility] [place] [address] [id number] [address] [place] [phone] Apr, [facility] [place] [address] [facility]NOTE [facility]] [id number] [address] [place] [address] Apr, Unsteady gait R26.81 ; Chron ic fatigue R53.82 ; SOB (shortness of breath) R06.02 and Moderate persistent asthma with exacerbation J45.41 [facility] [place] [address] [id number] [address] [place] [address] Apr, [facility] [place] [address] [facility]NOTE 3] [id number] [address] [place] [address] Apr, Medicare annual wellness vis it, initial Z00.00 [facility] [place] [address] [facility]NOTE 3] [id number] [address] [place] [phone] 10 Mar, 2018 [facility] [place] [address] [id number] [address] [place] [phone] March, [facility] [place] [address] [facility]NOTE 3] [id number] [address] [place] [phone] Feb, Medicare annual wellness vis it, initial Z00.00 ; Bipolar 1 disorder F31.9 ; Low back pain M54.5 and Other chronic pain G89.29 [facility] [place] [address] [id number] [address] [place] [phone] Jan, [facility] [place] [address] [facility]NOTE 3] [id number] [address] [place] [address] Dec, Frequent headaches R51 and D egenerative disc disease at L5-S1 level M51.36 [facility] [place] [address] [facility] 3] [id number] [address] [place] [phone] Nov, [facility] [address] [facility]NOTE 3] [id number] [address] [place] [phone] Nov, Chronic intractable headache , unspecified headache type R51 [facility] [address] [facility] 3] [id number] [address] [place] [address] Nov, Chronic headaches R51 and BM I 45.0-49.9, adult Z68.42 [facility] [place] [address] [place] [id number] [address] [place] [address] Nov, [facility] [place] [address] [address] Nov, Obesity, morbid E66.01 ; Unc omplicated asthma, unspecified asthma severity J45.909 ; Anxiety F41.9 ; Pure hyperglyceridemia E78.1 and Family history of diabetes mellitus Z83.3 [facility] [place] [address] [id number] 15 Oct, 2017 Bronchitis J40 [place] [address] [address] 06 Oct, 2017 Chronic headaches R51 [place] [address] [address] Sep, [place] [address] [address] Sep, Chronic headaches R51 ; Othe r chronic pain G89.29 ; Anemia D64.9 and Obesity, morbid E66.01 [facility] [place] [address] [address] 12 Aug, 2017 Acute suppurative otitis med ia of right ear without spontaneous rupture of tympanic membrane, recurrence not specified H66.001 [place] [address] [address] 11 Aug, 2017 Other chronic pain G89.29 [facility] [place] [address] [place] [id number] [place] [address] 18 Jul, 2017 Degenerative disc disease at L5-S1 level M51.36 [place] [address] [address] 07 Jul, 2017 Other chronic pain G89.29 an d Sprain of deltoid ligament of left ankle, subsequent encounter S93.422D [facility] [place] [address] [id number] [address] [place] [address] Jul, Degenerative disc disease at L5-S1 level M51.36 [facility] [place] [address] [id number] [address] [place] [phone] Jun, [facility] [place] [address] [id number] [address] [place] [id number] Jun, Degenerative disc disease at L5-S1 level M51.36 [facility] [place] [address] [id number] [address] [place] [address] Jun, [facility] [place] [address] [id number] [address] [place] [phone] Jun, [facility] [place] [address] [id number] [address] [place] [id number] Jun, [facility] [place] [address] [id number] [address] [place] [id number] May, [facility] [place] [address] [id number] [address] [place] [phone] May, [facility] [place] [address] [id number] [address] [place] [id number] May, Rib pain on left side R07.81 [facility] [place] [address] [id number] [address] [place] [address] Apr, Morbid obesity due to excess calories E66.01 [facility] [place] [address] [id number] [address] [place] [address] Apr, Gastroenteritis K52.9 [facility] [place] [address] [id number] [address] [place] [address] Apr, Degenerative disc disease at L5-S1 level M51.36 [facility] [place] [address] [id number] [address] [place] [address] March, Degenerative disc disease at L5-S1 level M51.36 [place] [address] [address] March, Bipolar 1 disorder F31.9 ; A nemia D64.9 ; Hypopotassemia E87.6 ; Uncomplicated asthma, unspecified asthma severity J45.909 ; Anxiety F41.9 ; Chronic headaches R51 and Degenerative disc disease at L5-S1 level M51.36 [place] [address] [address] March, Degenerative disc disease at L5-S1 level M51.36 [place] [address] [address] March, Degenerative disc disease at L5-S1 level M51.36 [place] [address] [address] March, Uncomplicated asthma, unspec ified asthma severity J45.909 ; Hypoxemia R09.02 ; Chronic headaches R51 and Degenerative disc disease at L5-S1 level M51.36 [place] [address] [address] March, [place] [address] [address] Feb, Acquired equinus deformity o f left foot M21.6X2 [place] [address] [address] Feb, Degenerative disc disease at L5-S1 level M51.36 [place] [address] [place] [id number] [address] [place] [address] Feb, Degenerative disc disease at L5-S1 level M51.36 [place] [address] [place] [id number] [place] [address] Jan, Degenerative disc disease at L5-S1 level M51.36 [place] [address] [address] Jan, Degenerative disc disease at L5-S1 level M51.36 [facility] [place] [address] [facility]] [id number] [address] [place] [id number] Dec, Degenerative disc disease at L5-S1 level M51.36 [facility] [place] [address] [place] [id number] [address] [place] [phone] Dec, Overactive bladder N32.81 an d Degenerative disc disease at L5-S1 level M51.36 [facility] [place] [address] [id number] [address] [place] [id number] Dec, Degenerative disc disease at L5-S1 level M51.36 [facility] [place] [address] [facility]] [id number] [address] [place] [address] Dec, Degenerative disc disease at L5-S1 level M51.36 [facility] [place] [address] [place] [id number] [address] [place] [id number] Nov, [facility] [place] [address] [facility]] [id number] [address] [place] [phone] Nov, Chronic headaches R51 [facility] [place] [address] [facility]] [id number] [address] [place] [id number] Nov, Degenerative disc disease at L5-S1 level M51.36 [facility] [place] [address] [place] [id number] [address] [place] [id number] Nov, Left upper quadrant pain R10 .12 [facility] [place] [address] [facility]] [id number] [address] [place] [address] Nov, Degenerative disc disease at L5-S1 level M51.36 [facility] [place] [address] [facility] 3] [id number] [address] [place] [address] Nov, Degenerative disc disease at L5-S1 level M51.36 [facility] [place] [address] [place] [id number] [address] [place] [address] Nov, Degenerative disc disease at L5-S1 level M51.36 [place] [address] [address] Nov, Degenerative disc disease at L5-S1 level M51.36 [place] [address] [address] Nov, Degenerative disc disease at L5-S1 level M51.36 [place] [address] [address] Oct, Degenerative disc disease at L5-S1 level M51.36 [place] [address] [address] Sep, Degenerative disc disease at L5-S1 level M51.36 [place] [address] [address] Sep, Degenerative disc disease at L5-S1 level M51.36 ; Bipolar 1 disorder F31.9 ; Chronic headaches R51 ; Hypopotassemia E87.6 ; Uncomplicated asthma, unspecified asthma severity J45.909 ; Anxiety F41.9 ; Overactive bladder N32.81 and Anemia D64.9 [place] [address] [address] Sep, Degenerative disc disease at L5-S1 level M51.36 [place] [address] [address] Aug, [place] [address] [address] Aug, Degenerative disc disease at L5-S1 level M51.36 ; Chronic headaches R51 ; Bipolar 1 disorder F31.9 ; Overactive bladder N32.81 ; Anxiety F41.9 and Anemia D64.9 [place] [address] [address] Aug, Degenerative disc disease at L5-S1 level M51.36 [place] [address] [address] Aug, [facility] [place] [address] [address] 14 Aug, 2016 [facility] [place] [address] [address] 10 Aug, 2016 Degenerative disc disease at L5-S1 level M51.36 [facility] [place] [address] [address] 28 Jul, 2016 Degenerative disc disease at L5-S1 level M51.36 [facility] [place] [address] [address] 27 Jul, 2016 [place] [address] [address] 23 Jul, 2016 [place] [address] [address] 22 Jul, 2016 Degenerative disc disease at L5-S1 level M51.36 ; Pure hyperglyceridemia E78.1 ; Bipolar 1 disorder F31.9 ; Anemia D64.9 ; Overactive bladder N32.81 ; Hypopotassemia E87.6 ; Anxiety F41.9 ; Mild intermittent asthma without complication J45.20 and Chronic headaches R51 [place] [address] [address] 15 Jul, 2016 [place] [address] [address] 07 Jul, 2016 [place] [address] [address] Jun, [place] [address] [address] Jun, Bipolar 1 disorder F31.9 ; A nxiety F41.9 ; Overactive bladder N32.81 ; Chronic headaches R51 ; Degenerative disc disease at L5-S1 level M51.36 ; Hypopotassemia E87.6 ; Anemia D64.9 and Morbid obesity due to excess calories E66.01 [place] [address] [place] [address] Jun, [facility] [place] [address] [facility]] [id number] [address] [place] [address] May, Overactive bladder N32.81 [facility] [place] [address] [facility]] [id number] [address] [place] [address] May, Bipolar 1 disorder F31.9 ; A nemia D64.9 ; Overactive bladder N32.81 ; Chronic headaches R51 ; Hypopotassemia E87.6 ; Degenerative disc disease at L5-S1 level M51.36 and Uncomplicated asthma, unspecified asthma severity J45.909 [facility] [place] [address] [facility]] [id number] [address] [place] [address] May, [facility] [place] [address] [facility]] [id number] [address] [place] [address] May, Chronic headaches R51 [facility] [place] [address] [facility]] [id number] [address] [place] [address] Apr, Chronic headaches R51 [facility] [place] [address] [facility]] [id number] [address] [place] [address] March, Chronic headaches R51 [facility] [place] [address] [facility]] [id number] [address] [place] [address] March, [facility] [place] [address] [facility]] [id number] [address] [place] [address] Feb, Chronic headaches R51 and De generative disc disease at L5-S1 level M51.36 [facility] [place] [address] [facility]] [id number] [address] [place] [address] Feb, Hypopotassemia E87.6 ; Anemi a D64.9 ; Overactive bladder N32.81 ; Chronic headaches R51 and Degenerative disc disease at L5-S1 level M51.36 [facility] [place] [address] [facility]] [id number] [address] [place] [address] Feb, Bipolar 1 disorder F31.9 ; A nemia D64.9 and Overactive bladder N32.81 [facility] [place] [address] [facility]] [id number] [address] [place] [address] 06 Feb, 2016 Scabies B86 ; Bipolar 1 diso rder F31.9 ; Anemia D64.9 ; Overactive bladder N32.81 ; Chronic headaches R51 ; Degenerative disc disease at L5-S1 level M51.36 and Wellness examination Z00.00 [place] [address] [facility]] [id number] [address] [place] [address] Feb, [place] [address] [facility]] [id number] [address] [place] [address] Oct, IMMUNIZATIONS No Known Immunizations SOCIAL HISTORY Never Assessed REASON FOR VISIT Physical Therapy appt PLAN OF CARE VITAL SIGNS MEDICATIONS Unknown [...] interstem replaced 05/2016 Hospitalization History [facility]- Headache 12/18/2017
--- OUTSIDE RECORDS SUMMARY | 2019-11-27 06:44 | XMS REPORT ---
Author Author Tish MALCOLM Organization [facility] Address [address] [place] [address] Care Team Providers Care Inventory Control Analyst Name Role Phone CHARIS MALCOLM Unavailable PROBLEMS Type Condition ICD9-CM Code NGL66-JX Code Onset Dates Condition S tatus SNOMED Code Problem Morbid obesity due to excess calories E66.01 Active 163376445 Problem Obesity, morbid E66.01 Active 2381 84408 Problem Other chronic pain G89.29 Active 8 9975167 Problem Controlled type 2 diabetes m ellitus without complication, without long- term current use of insulin E11.9 Active 708371740 Problem Bipolar I disorder with depression F31.9 Active 84639191 Problem Chronic fatigue R53.82 Active 8422 9001 Problem Moderate persistent asthma with exacerbation J45.4 1 Active 331618824 Problem Chronic post-traumatic stress disorder (PTSD) F43. 12 Active 196665356 Problem Unsteady gait R26.81 Active 708316 08 Problem Chronic headaches R51 Active 43 3295221 Problem Anemia D64.9 Active 401633138 Problem Pure hyperglyceridemia E78.1 Active 032641930 Problem Overactive bladder N32.81 Active 2 83636896 Problem Uncomplicated asthma, unspecified asthma severity J45.909 Active 281533876 Problem Anxiety F41.9 Active 25784951 Problem Hypopotassemia E87.6 Active 40860 004 Problem Acquired equinus deformity of left foot M21.6X2 Active 62451939 Problem Degenerative disc disease at L5-S1 level M51.36 Active 88701760 Problem Hypoxemia R09.02 Active [id number] ALLERGIES No Information ENCOUNTERS Encounter Location Date Diagnosis [facility] [address] [facility] [id number] [address] [place] [phone] Aug, [facility] [address] [facility] [id number] [address] [place] [id number] Aug, [facility] [address] [facility] [id number] [address] [place] [id number] Aug, [facility] [address] [id number] [address] [place] [phone] Jul, [facility] [address] [facility] [id number] [address] [place] [id number] 10 Jul, 2018 [place] [address] [facility] [id number] [address] [place] [id number] 07 Jul, 2018 Other chronic pain G89.29 ; Dysuria R30.0 ; Degenerative disc disease at L5-S1 level M51.36 ; Uncomplicated asthma, unspecified asthma severity J45.909 ; Vagina, candidiasis B37.3 ; Glucose found in urine on examination R81 ; Family history of diabetes mellitus Z83.3 and Controlled type 2 diabetes mellitus without complication, without long-term current use of insulin E11.9 [place] [address] [place] [id number] [address] [place] [phone] Jun, Degenerative disc disease at L5-S1 level M51.36 [place] [address] [facility] [id number] [address] [place] [id number] Jun, [place] [address] [place] [id number] [address] [place] [id number] Jun, Medicare annual wellness vis it, initial Z00.00 [place] [address] [facility] [id number] [address] [place] [phone] Jun, [place] [address] [facility] [id number] [address] [place] [phone] Jun, Bipolar I disorder with depr ession F31.9 and Chronic post-traumatic stress disorder (PTSD) F43.12 [place] [address] [facility] [id number] [address] [place] [id number] Jun, Degenerative disc disease at L5-S1 level M51.36 [place] [address] [place] [id number] [address] [place] [phone] Jun, [place] [address] [facility] [id number] [address] [place] [phone] May, [facility] [address] [id number] [address] [place] [phone] May, [facility] [address] [facility] [id number] [address] [place] [phone] Apr, [facility] [address] [facility] [id number] [address] [place] [phone] Apr, Unsteady gait R26.81 ; Chron ic fatigue R53.82 ; SOB (shortness of breath) R06.02 and Moderate persistent asthma with exacerbation J45.41 [facility] [address] [facility] [id number] [address] [place] [id number] Apr, [facility] [address] [facility] [id number] [address] [place] [id number] 05 Apr, 2018 Medicare annual wellness vis it, initial Z00.00 [facility] [address] [facility] [id number] [address] [place] [phone] March, [facility] [address] [facility] [id number] [address] [place] [phone] March, [facility] [address] [facility] [id number] [address] [place] [id number] Feb, Medicare annual wellness vis it, initial Z00.00 ; Bipolar 1 disorder F31.9 ; Low back pain M54.5 and Other chronic pain G89.29 [facility] [address] [facility] [id number] [address] [place] [id number] Jan, [facility] [address] [facility] [id number] [address] [place] [phone] Dec, Frequent headaches R51 and D egenerative disc disease at L5-S1 level M51.36 [facility] [address] [facility] [id number] [address] [place] [phone] Nov, [facility] [address] [facility] [id number] [address] [place] [phone] Nov, Chronic intractable headache , unspecified headache type R51 [facility] [address] [facility] [id number] [address] [place] [id number] Nov, Chronic headaches R51 and BM I 45.0-49.9, adult Z68.42 [facility] [address] [address] Nov, [facility] [address] [phone] Nov, Obesity, morbid E66.01 ; Unc omplicated asthma, unspecified asthma severity J45.909 ; Anxiety F41.9 ; Pure hyperglyceridemia E78.1 and Family history of diabetes mellitus Z83.3 [place] [address] [id number] 15 Oct, 2017 Bronchitis J40 [place] [address] [id number] 06 Oct, 2017 Chronic headaches R51 [place] [address] [address] Sep, [place] [address] [address] Sep, Chronic headaches R51 ; Othe r chronic pain G89.29 ; Anemia D64.9 and Obesity, morbid E66.01 [facility] [address] [id number] Aug, Acute suppurative otitis med ia of right ear without spontaneous rupture of tympanic membrane, recurrence not specified H66.001 [place] [address] [id number] 11 Aug, 2017 Other chronic pain G89.29 [place] [address] [place] [id number] [place] [id number] 18 Jul, 2017 Degenerative disc disease at L5-S1 level M51.36 [place] [address] [place] [address] [place] [address] 07 Jul, 2017 Other chronic pain G89.29 an d Sprain of deltoid ligament of left ankle, subsequent encounter S93.422D [facility] [address] [id number] [address] [place] [id number] 05 Jul, 2017 Degenerative disc disease at L5-S1 level M51.36 [facility] [address] [id number] [address] [place] [id number] Jun, [facility] [address] [id number] [address] [place] [id number] Jun, Degenerative disc disease at L5-S1 level M51.36 [facility] [address] [id number] [address] [place] [id number] Jun, [facility] [address] [id number] [address] [place] [phone] Jun, [facility] [address] [id number] [address] [place] [phone] Jun, [facility] [address] [id number] [address] [place] [phone] May, [facility] [address] [id number] [address] [place] [phone] May, [facility] [address] [id number] [address] [place] [id number] May, Rib pain on left side R07.81 [facility] [address] [id number] [address] [place] [phone] Apr, Morbid obesity due to excess calories E66.01 [facility] [address] [id number] [address] [place] [phone] Apr, Gastroenteritis K52.9 [facility] [address] [id number] [address] [place] [id number] Apr, Degenerative disc disease at L5-S1 level M51.36 [facility] [address] [address] March, Degenerative disc disease at L5-S1 level M51.36 [place] [address] [address] March, Bipolar 1 disorder F31.9 ; A nemia D64.9 ; Hypopotassemia E87.6 ; Uncomplicated asthma, unspecified asthma severity J45.909 ; Anxiety F41.9 ; Chronic headaches R51 and Degenerative disc disease at L5-S1 level M51.36 [place] [address] [address] March, Degenerative disc disease at L5-S1 level M51.36 [place] [address] [address] March, Degenerative disc disease at L5-S1 level M51.36 [place] [address] [address] March, Uncomplicated asthma, unspec ified asthma severity J45.909 ; Hypoxemia R09.02 ; Chronic headaches R51 and Degenerative disc disease at L5-S1 level M51.36 [place] [address] [address] March, [place] [address] [address] Feb, Acquired equinus deformity o f left foot M21.6X2 [place] [address] [id number] Feb, Degenerative disc disease at L5-S1 level M51.36 [place] [address] [address] Feb, Degenerative disc disease at L5-S1 level M51.36 [place] [address] [id number] Jan, Degenerative disc disease at L5-S1 level M51.36 [place] [address] [id number] [address] [place] [id number] Jan, Degenerative disc disease at L5-S1 level M51.36 [facility] [address] [id number] [address] [place] [phone] Dec, Degenerative disc disease at L5-S1 level M51.36 [facility] [address] [facility] [id number] [address] [place] [id number] Dec, Overactive bladder N32.81 an d Degenerative disc disease at L5-S1 level M51.36 [facility] [address] [id number] [address] [place] [id number] Dec, Degenerative disc disease at L5-S1 level M51.36 [facility] [address] [facility] [id number] [address] [place] [id number] Dec, Degenerative disc disease at L5-S1 level M51.36 [facility] [address] [id number] [address] [place] [id number] Nov, [facility] [address] [id number] [address] [place] [id number] Nov, Chronic headaches R51 [facility] [address] [facility] [id number] [address] [place] [id number] Nov, Degenerative disc disease at L5-S1 level M51.36 [facility] [address] [facility] [id number] [address] [place] [address] Nov, Left upper quadrant pain R10 .12 [facility] [address] [id number] [address] [place] [id number] Nov, Degenerative disc disease at L5-S1 level M51.36 [facility] [address] [facility] [id number] [address] [place] [id number] Nov, Degenerative disc disease at L5-S1 level M51.36 [facility] [address] [facility] [id number] [address] [place] [id number] Nov, Degenerative disc disease at L5-S1 level M51.36 [facility] [address] [place] [id number] [place] [phone] Nov, Degenerative disc disease at L5-S1 level M51.36 [facility] [address] [facility] [id number] [address] [place] [phone] Nov, Degenerative disc disease at L5-S1 level M51.36 [facility] [address] [place] [id number] [address] [place] [id number] Oct, Degenerative disc disease at L5-S1 level M51.36 [place] [address] [place] [id number] [place] [phone] Sep, Degenerative disc disease at L5-S1 level M51.36 [place] [address] [place] [id number] [place] [address] Sep, Degenerative disc disease at L5-S1 level M51.36 ; Bipolar 1 disorder F31.9 ; Chronic headaches R51 ; Hypopotassemia E87.6 ; Uncomplicated asthma, unspecified asthma severity J45.909 ; Anxiety F41.9 ; Overactive bladder N32.81 and Anemia D64.9 [place] [address] [place] [id number] [place] [phone] Sep, Degenerative disc disease at L5-S1 level M51.36 [place] [address] [id number] Aug, [place] [address] [place] [id number] [place] [phone] Aug, Degenerative disc disease at L5-S1 level M51.36 ; Chronic headaches R51 ; Bipolar 1 disorder F31.9 ; Overactive bladder N32.81 ; Anxiety F41.9 and Anemia D64.9 [place] [address] [place] [id number] [address] [place] [id number] Aug, Degenerative disc disease at L5-S1 level M51.36 [place] [address] [place] [id number] [address] [place] [id number] 18 Aug, 2016 [facility] [address] [place] [id number] [address] [place] [id number] 14 Aug, 2016 [facility] [address] [place] [id number] [place] [id number] 10 Aug, 2016 Degenerative disc disease at L5-S1 level M51.36 [facility] [address] [place] [id number] [place] [id number] 28 Jul, 2016 Degenerative disc disease at L5-S1 level M51.36 [facility] [address] [place] [id number] [address] [place] [phone] 27 Jul, 2016 [facility] [address] [place] [id number] [place] [phone] 23 Jul, 2016 [facility] [address] [place] [id number] [place] [phone] 22 Jul, 2016 Degenerative disc disease at L5-S1 level M51.36 ; Pure hyperglyceridemia E78.1 ; Bipolar 1 disorder F31.9 ; Anemia D64.9 ; Overactive bladder N32.81 ; Hypopotassemia E87.6 ; Anxiety F41.9 ; Mild intermittent asthma without complication J45.20 and Chronic headaches R51 [facility] [address] [place] [id number] [address] [place] [id number] 15 Jul, 2016 [facility] [address] [id number] 07 Jul, 2016 [facility] [address] [place] [id number] [address] [place] [phone] Jun, [facility] [address] [place] [id number] [place] [address] Jun, Bipolar 1 disorder F31.9 ; A nxiety F41.9 ; Overactive bladder N32.81 ; Chronic headaches R51 ; Degenerative disc disease at L5-S1 level M51.36 ; Hypopotassemia E87.6 ; Anemia D64.9 and Morbid obesity due to excess calories E66.01 [facility] [address] [id number] [address] [place] [id number] Jun, [facility] [address] [facility] [id number] [address] [place] [phone] May, Overactive bladder N32.81 [facility] [address] [facility] [id number] [address] [place] [id number] May, Bipolar 1 disorder F31.9 ; A nemia D64.9 ; Overactive bladder N32.81 ; Chronic headaches R51 ; Hypopotassemia E87.6 ; Degenerative disc disease at L5-S1 level M51.36 and Uncomplicated asthma, unspecified asthma severity J45.909 [facility] [address] [facility] [id number] [address] [place] [phone] May, [facility] [address] [facility] [id number] [address] [place] [phone] May, Chronic headaches R51 [facility] [address] [facility] [id number] [address] [place] [phone] Apr, Chronic headaches R51 [facility] [address] [facility] [id number] [address] [place] [id number] March, Chronic headaches R51 [facility] [address] [facility] [id number] [address] [place] [phone] March, [facility] [address] [facility] [id number] [address] [place] [phone] Feb, Chronic headaches R51 and De generative disc disease at L5-S1 level M51.36 [facility] [address] [id number] [address] [place] [id number] Feb, Hypopotassemia E87.6 ; Anemi a D64.9 ; Overactive bladder N32.81 ; Chronic headaches R51 and Degenerative disc disease at L5-S1 level M51.36 [facility] [address] [facility] [id number] [address] [place] [id number] Feb, Bipolar 1 disorder F31.9 ; A nemia D64.9 and Overactive bladder N32.81 [facility] [address] [facility] [id number] [address] [place] [id number] 06 Feb, 2016 Scabies B86 ; Bipolar 1 diso rder F31.9 ; Anemia D64.9 ; Overactive bladder N32.81 ; Chronic headaches R51 ; Degenerative disc disease at L5-S1 level M51.36 and Wellness examination Z00.00 [place] [id number] [place] [id number] 17 Feb, 2009 [place] [address] [place] [id number] [address] [place] [phone] Oct, IMMUNIZATIONS No Known Immunizations SOCIAL HISTORY Never Assessed REASON FOR VISIT 1 yr f/u DM Ed PLAN OF CARE VITAL SIGNS MEDICATIONS Unknown [...] interstem replaced 05/2016 Hospitalization History [facility]- Headache 12/18/2017
--- OUTSIDE RECORDS SUMMARY | 2019-11-27 06:44 | XMS REPORT ---
Author Author Tish NIEVES Organization [facility] Address [address] [place] [address] Care Team Providers Care Print Support Specialist Name Role Phone EZEQUIEL NIELS Unavailable PROBLEMS Type Condition ICD9-CM Code [id number] Code Onset Dates Condition S tatus SNOMED Code Problem Morbid obesity due to excess calories E66.01 Active 253683161 Problem Obesity, morbid E66.01 Active 2381 56128 Problem Other chronic pain G89.29 Active 8 9510510 Problem Controlled type 2 diabetes m ellitus without complication, without long- term current use of insulin E11.9 Active 869797749 Problem Bipolar I disorder with depression F31.9 Active 02308141 Problem Chronic fatigue R53.82 Active 8422 9001 Problem Moderate persistent asthma with exacerbation J45.4 1 Active 229862370 Problem Chronic post-traumatic stress disorder (PTSD) F43. 12 Active 248906061 Problem Unsteady gait R26.81 Active 431815 08 Problem Chronic headaches R51 Active 43 8954272 Problem Anemia D64.9 Active 224230125 Problem Pure hyperglyceridemia E78.1 Active 462042589 Problem Overactive bladder N32.81 Active 2 94934224 Problem Uncomplicated asthma, unspecified asthma severity J45.909 Active 674373119 Problem Anxiety F41.9 Active 92213410 Problem Hypopotassemia E87.6 Active 42921 004 Problem Acquired equinus deformity of left foot M21.6X2 Active 41972561 Problem Degenerative disc disease at L5-S1 level M51.36 Active 59659479 Problem Hypoxemia R09.02 Active [id number] ALLERGIES No Information ENCOUNTERS Encounter Location Date Diagnosis [facility] [address] [facility] [id number] [address] [place] [phone] Aug, [facility] [address] [facility] [id number] [address] [place] [address] Aug, [facility] [address] [place] [id number] [address] [place] [address] Aug, [facility] [address] [id number] [address] [place] [address] Jul, [facility] [address] [facility] [id number] [address] [place] [address] Jul, [place] [address] [place] [id number] [address] [place] [address] Jul, Other chronic pain G89.29 ; Dysuria R30.0 ; Degenerative disc disease at L5-S1 level M51.36 ; Uncomplicated asthma, unspecified asthma severity J45.909 ; Vagina, candidiasis B37.3 ; Glucose found in urine on examination R81 ; Family history of diabetes mellitus Z83.3 and Controlled type 2 diabetes mellitus without complication, without long-term current use of insulin E11.9 [place] [address] [place] [id number] [address] [place] [address] Jun, Degenerative disc disease at L5-S1 level M51.36 [place] [address] [facility] [id number] [address] [place] [address] Jun, [place] [address] [place] [id number] [address] [place] [address] Jun, Medicare annual wellness vis it, initial Z00.00 [place] [address] [facility] [id number] [address] [place] [address] Jun, [place] [address] [facility] [id number] [address] [place] [address] Jun, Bipolar I disorder with depr ession F31.9 and Chronic post-traumatic stress disorder (PTSD) F43.12 [place] [address] [facility] [id number] [address] [place] [address] Jun, Degenerative disc disease at L5-S1 level M51.36 [place] [address] [facility] [id number] [address] [place] [address] Jun, [place] [address] [id number] [address] [place] [address] May, [facility] [address] [id number] [address] [place] [phone] May, [facility] [address] [id number] [address] [place] [address] Apr, [facility] [address] [facility] [id number] [address] [place] [address] Apr, Unsteady gait R26.81 ; Chron ic fatigue R53.82 ; SOB (shortness of breath) R06.02 and Moderate persistent asthma with exacerbation J45.41 [facility] [address] [facility] [id number] [address] [place] [address] Apr, [facility] [address] [facility] [id number] [address] [place] [address] Apr, Medicare annual wellness vis it, initial Z00.00 [facility] [address] [facility] [id number] [address] [place] [address] March, [facility] [address] [facility] [id number] [address] [place] [address] March, [facility] [address] [facility] [id number] [address] [place] [address] Feb, Medicare annual wellness vis it, initial Z00.00 ; Bipolar 1 disorder F31.9 ; Low back pain M54.5 and Other chronic pain G89.29 [facility] [address] [facility] [id number] [address] [place] [address] Jan, [facility] [address] [facility] [id number] [address] [place] [address] Dec, Frequent headaches R51 and D egenerative disc disease at L5-S1 level M51.36 [facility] [address] [facility] [id number] [address] [place] [address] Nov, [facility] [address] [facility] [id number] [address] [place] [address] Nov, Chronic intractable headache , unspecified headache type R51 [facility] [address] [place] [id number] [address] [place] [address] Nov, Chronic headaches R51 and BM I 45.0-49.9, adult Z68.42 [facility] [address] [place] [id number] [address] [place] [address] Nov, [facility] [address] [address] Nov, Obesity, morbid E66.01 ; Unc omplicated asthma, unspecified asthma severity J45.909 ; Anxiety F41.9 ; Pure hyperglyceridemia E78.1 and Family history of diabetes mellitus Z83.3 [place] [address] [address] Oct, Bronchitis J40 [place] [address] [address] Oct, Chronic headaches R51 [place] [address] [address] Sep, [place] [address] [address] Sep, Chronic headaches R51 ; Othe r chronic pain G89.29 ; Anemia D64.9 and Obesity, morbid E66.01 [place] [address] [address] Aug, Acute suppurative otitis med ia of right ear without spontaneous rupture of tympanic membrane, recurrence not specified H66.001 [place] [address] [address] 11 Aug, 2017 Other chronic pain G89.29 [place] [address] [place] [id number] [address] [place] [address] 18 Jul, 2017 Degenerative disc disease at L5-S1 level M51.36 [place] [id number] [place] [address] 07 Jul, 2017 Other chronic pain G89.29 an d Sprain of deltoid ligament of left ankle, subsequent encounter S93.422D [facility] [address] [id number] [address] [place] [address] 05 Jul, 2017 Degenerative disc disease at L5-S1 level M51.36 [facility] [address] [id number] [address] [place] [address] Jun, [facility] [address] [id number] [address] [place] [address] Jun, Degenerative disc disease at L5-S1 level M51.36 [facility] [address] [id number] [address] [place] [address] Jun, [facility] [address] [id number] [address] [place] [address] Jun, [facility] [address] [id number] [address] [place] [address] Jun, [facility] [address] [id number] [address] [place] [address] May, [facility] [address] [id number] [address] [place] [address] May, [facility] [address] [id number] [address] [place] [address] May, Rib pain on left side R07.81 [facility] [address] [id number] [address] [place] [address] Apr, Morbid obesity due to excess calories E66.01 [facility] [address] [facility] [id number] [address] [place] [address] Apr, Gastroenteritis K52.9 [facility] [address] [facility] [id number] [address] [place] [address] Apr, Degenerative disc disease at L5-S1 level M51.36 [facility] [address] [address] March, Degenerative disc disease at L5-S1 level M51.36 [place] [address] [address] March, Bipolar 1 disorder F31.9 ; A nemia D64.9 ; Hypopotassemia E87.6 ; Uncomplicated asthma, unspecified asthma severity J45.909 ; Anxiety F41.9 ; Chronic headaches R51 and Degenerative disc disease at L5-S1 level M51.36 [place] [address] [address] March, Degenerative disc disease at L5-S1 level M51.36 [place] [address] [address] March, Degenerative disc disease at L5-S1 level M51.36 [place] [address] [address] March, Uncomplicated asthma, unspec ified asthma severity J45.909 ; Hypoxemia R09.02 ; Chronic headaches R51 and Degenerative disc disease at L5-S1 level M51.36 [place] [address] [address] March, [place] [address] [address] Feb, Acquired equinus deformity o f left foot M21.6X2 [place] [address] [address] Feb, Degenerative disc disease at L5-S1 level M51.36 [place] [address] [address] Feb, Degenerative disc disease at L5-S1 level M51.36 [place] [address] [address] Jan, Degenerative disc disease at L5-S1 level M51.36 [place] [address] [id number] [address] [place] [address] Jan, Degenerative disc disease at L5-S1 level M51.36 [facility] [address] [facility] [id number] [address] [place] [address] Dec, Degenerative disc disease at L5-S1 level M51.36 [facility] [address] [facility] [id number] [address] [place] [address] Dec, Overactive bladder N32.81 an d Degenerative disc disease at L5-S1 level M51.36 [facility] [address] [id number] [address] [place] [address] Dec, Degenerative disc disease at L5-S1 level M51.36 [facility] [address] [facility] [id number] [address] [place] [address] Dec, Degenerative disc disease at L5-S1 level M51.36 [facility] [address] [facility] [id number] [address] [place] [address] Nov, [facility] [address] [facility] [id number] [address] [place] [address] Nov, Chronic headaches R51 [facility] [address] [facility] [id number] [address] [place] [address] Nov, Degenerative disc disease at L5-S1 level M51.36 [facility] [address] [facility] [id number] [address] [place] [address] Nov, Left upper quadrant pain R10 .12 [facility] [address] [facility] [id number] [address] [place] [address] Nov, Degenerative disc disease at L5-S1 level M51.36 [facility] [address] [facility] [id number] [address] [place] [address] Nov, Degenerative disc disease at L5-S1 level M51.36 [facility] [address] [facility] [id number] [address] [place] [address] Nov, Degenerative disc disease at L5-S1 level M51.36 [facility] [address] [address] Nov, Degenerative disc disease at L5-S1 level M51.36 [facility] [address] [place] [id number] [address] [place] [address] Nov, Degenerative disc disease at L5-S1 level M51.36 [facility] [address] [place] [id number] [place] [address] Oct, Degenerative disc disease at L5-S1 level M51.36 [place] [address] [place] [id number] [place] [address] Sep, Degenerative disc disease at L5-S1 level M51.36 [place] [address] [address] Sep, Degenerative disc disease at L5-S1 level M51.36 ; Bipolar 1 disorder F31.9 ; Chronic headaches R51 ; Hypopotassemia E87.6 ; Uncomplicated asthma, unspecified asthma severity J45.909 ; Anxiety F41.9 ; Overactive bladder N32.81 and Anemia D64.9 [place] [address] [address] Sep, Degenerative disc disease at L5-S1 level M51.36 [place] [address] [address] Aug, [facility] [address] [address] Aug, Degenerative disc disease at L5-S1 level M51.36 ; Chronic headaches R51 ; Bipolar 1 disorder F31.9 ; Overactive bladder N32.81 ; Anxiety F41.9 and Anemia D64.9 [facility] [address] [place] [id number] [address] [place] [address] Aug, Degenerative disc disease at L5-S1 level M51.36 [facility] [address] [address] 18 Aug, 2016 [facility] [address] [address] 14 Aug, 2016 [facility] [address] [address] 10 Aug, 2016 Degenerative disc disease at L5-S1 level M51.36 [facility] [address] [address] 28 Jul, 2016 Degenerative disc disease at L5-S1 level M51.36 [facility] [address] [address] 27 Jul, 2016 [facility] [address] [address] 23 Jul, 2016 [facility] [address] [address] 22 Jul, 2016 Degenerative disc disease at L5-S1 level M51.36 ; Pure hyperglyceridemia E78.1 ; Bipolar 1 disorder F31.9 ; Anemia D64.9 ; Overactive bladder N32.81 ; Hypopotassemia E87.6 ; Anxiety F41.9 ; Mild intermittent asthma without complication J45.20 and Chronic headaches R51 [facility] [address] [address] 15 Jul, 2016 [facility] [address] [address] 07 Jul, 2016 [facility] [address] [address] Jun, [facility] [address] [address] Jun, Bipolar 1 disorder F31.9 ; A nxiety F41.9 ; Overactive bladder N32.81 ; Chronic headaches R51 ; Degenerative disc disease at L5-S1 level M51.36 ; Hypopotassemia E87.6 ; Anemia D64.9 and Morbid obesity due to excess calories E66.01 [facility] [address] [facility] [id number] [address] [place] [address] Jun, [facility] [address] [facility] [id number] [address] [place] [address] May, Overactive bladder N32.81 [facility] [address] [facility] [id number] [address] [place] [address] May, Bipolar 1 disorder F31.9 ; A nemia D64.9 ; Overactive bladder N32.81 ; Chronic headaches R51 ; Hypopotassemia E87.6 ; Degenerative disc disease at L5-S1 level M51.36 and Uncomplicated asthma, unspecified asthma severity J45.909 [facility] [address] [facility] [id number] [address] [place] [address] May, [facility] [address] [facility] [id number] [address] [place] [address] May, Chronic headaches R51 [facility] [address] [facility] [id number] [address] [place] [address] Apr, Chronic headaches R51 [facility] [address] [place] [id number] [address] [place] [address] March, Chronic headaches R51 [facility] [address] [facility] [id number] [address] [place] [address] March, [facility] [address] [facility] [id number] [address] [place] [address] Feb, Chronic headaches R51 and De generative disc disease at L5-S1 level M51.36 [facility] [address] [facility] [id number] [address] [place] [address] Feb, Hypopotassemia E87.6 ; Anemi a D64.9 ; Overactive bladder N32.81 ; Chronic headaches R51 and Degenerative disc disease at L5-S1 level M51.36 [facility] [address] [facility] [id number] [address] [place] [address] Feb, Bipolar 1 disorder F31.9 ; A nemia D64.9 and Overactive bladder N32.81 [place] [id number] [facility] [id number] [address] [place] [address] Feb, Scabies B86 ; Bipolar 1 diso rder F31.9 ; Anemia D64.9 ; Overactive bladder N32.81 ; Chronic headaches R51 ; Degenerative disc disease at L5-S1 level M51.36 and Wellness examination Z00.00 [place] [address] [facility] [id number] [address] [place] [address] 17 Feb, 2009 [place] [address] [facility] [id number] [address] [place] [address] Oct, IMMUNIZATIONS No Known Immunizations SOCIAL HISTORY Never Assessed REASON FOR VISIT PT follow-up PLAN OF CARE Activity Details Follow Up 2 Weeks Reason:F/u PT VITAL SIGNS MEDICATIONS Unknown Medications RESULTS No Results PROCEDURES Procedure Date Ordered Result Body Site THERAPEUTIC EXERCISES Jul 08, 2018 INSTRUCTIONS MEDICATIONS ADMINISTERED No [...] interstem replaced 05/2016 Hospitalization History [facility]- Headache 12/18/2017
--- OUTSIDE RECORDS SUMMARY | 2019-11-27 06:44 | XMS REPORT ---
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 Active 22333546 Problem Chronic fatigue R53.82 Active 8422 9001 Problem Moderate persistent asthma with exacerbation J45.4 1 Active 591162261 Problem Other chronic pain G89.29 Active 8 5808318 Problem Morbid obesity due to excess calories E66.01 Active 239681913 Problem Unsteady gait R26.81 Active 438699 08 Problem Obesity, morbid E66.01 Active 2381 25081 Problem Pure hyperglyceridemia E78.1 Active 361711363 Problem Overactive bladder N32.81 Active 2 48181742 Problem Anemia D64.9 Active 491660585 Problem Hypopotassemia E87.6 Active 62801 004 Problem Bipolar 1 disorder F31.9 Active 3 38501924 Problem Degenerative disc disease at L5-S1 level M51.36 Active 44701866 Problem Chronic headaches R51 Active 43 1497067 Problem Uncomplicated asthma, unspecified asthma severity J45.909 Active 269408995 ALLERGIES Substance Reaction Event Type Date Status Sulfamethoxazole-Trimethoprim Unknown Drug Allergy Feb, 201 8 Active Penicillin V Potassium Unknown Drug Allergy Feb, Activ e Morphine Sulfate anaphylaxis Drug Allergy Feb, Active Mobic fall asleep and sleep walk Drug Allergy Feb, A ctive Codeine Sulfate Unknown Drug Allergy Feb, Active Amoxicillin rash Drug Allergy Feb, Active paper tape rash Non Drug Allergy Feb, Active pink dye, purple dye sick to stomach Non Drug Allergy Feb, Active ENCOUNTERS Encounter Location Date Diagnosis [facility] [address] [facility] [id number] [address] [place] [id number] Jun, [facility] [address] [facility] [id number] [address] [place] [address] Jun, [facility] [address] [facility] [id number] [address] [place] [address] May, [facility] [address] [facility] [id number] [address] [place] [address] May, [facility] [address] [place] [id number] [place] [address] Apr, [facility] [address] [place] [id number] [place] [phone] Apr, Unsteady gait R26.81 ; Chron ic fatigue R53.82 ; SOB (shortness of breath) R06.02 and Moderate persistent asthma with exacerbation J45.41 [place] [address] [address] Apr, [facility] [address] [place] [id number] [address] [place] [id number] 05 Apr, 2018 Medicare annual wellness vis it, initial Z00.00 [place] [address] [place] [id number] [address] [place] [address] March, [facility] [address] [place] [id number] [address] [place] [address] March, [facility] [address] [place] [id number] [address] [place] [address] Feb, Medicare annual wellness vis it, initial Z00.00 ; Bipolar 1 disorder F31.9 ; Low back pain M54.5 and Other chronic pain G89.29 [facility] [address] [facility] [id number] [address] [place] [address] Jan, [facility] [address] [place] [id number] [address] [place] [address] Dec, Frequent headaches R51 and D egenerative disc disease at L5-S1 level M51.36 [place] [address] [place] [id number] [place] [address] Nov, [facility]ALK [facility] [address] [address] Nov, Chronic intractable headache , unspecified headache type R51 [facility] [address] [address] Nov, Chronic headaches R51 and BM I 45.0-49.9, adult Z68.42 [place] [address] [address] Nov, [place] [address] [address] Nov, Obesity, morbid E66.01 ; Unc omplicated asthma, unspecified asthma severity J45.909 ; Anxiety F41.9 ; Pure hyperglyceridemia E78.1 and Family history of diabetes mellitus Z83.3 [place] [address] [address] Oct, Bronchitis J40 [place] [address] [address] Oct, Chronic headaches R51 [place] [address] [address] Sep, [place] [address] [address] Sep, Chronic headaches R51 ; Othe r chronic pain G89.29 ; Anemia D64.9 and Obesity, morbid E66.01 [place] [address] [address] Aug, Acute suppurative otitis med ia of right ear without spontaneous rupture of tympanic membrane, recurrence not specified H66.001 [place] [address] [address] Aug, Other chronic pain G89.29 [facility] [address] [id number] [address] [place] [id number] 18 Jul, 2017 Degenerative disc disease at L5-S1 level M51.36 [facility] [address] [id number] [address] [place] [id number] 07 Jul, 2017 Other chronic pain G89.29 an d Sprain of deltoid ligament of left ankle, subsequent encounter S93.422D [facility] [address] [id number] [address] [place] [address] 05 Jul, 2017 Degenerative disc disease at L5-S1 level M51.36 [facility] [address] [id number] [address] [place] [address] Jun, [facility] [address] [id number] [address] [place] [address] Jun, Degenerative disc disease at L5-S1 level M51.36 [facility] [address] [id number] [address] [place] [address] Jun, [facility] [address] [id number] [address] [place] [id number] Jun, [facility] [address] [id number] [address] [place] [id number] Jun, [facility] [address] [id number] [address] [place] [address] May, [facility] [address] [id number] [address] [place] [address] May, [facility] [address] [id number] [address] [place] [address] May, Rib pain on left side R07.81 [facility] [address] [id number] [address] [place] [address] Apr, Morbid obesity due to excess calories E66.01 [facility] [address] [id number] [address] [place] [address] Apr, Gastroenteritis K52.9 [place] [address] [address] Apr, Degenerative disc disease at L5-S1 level M51.36 [place] [address] [address] March, Degenerative disc disease at L5-S1 level M51.36 [place] [address] [address] March, Bipolar 1 disorder F31.9 ; A nemia D64.9 ; Hypopotassemia E87.6 ; Uncomplicated asthma, unspecified asthma severity J45.909 ; Anxiety F41.9 ; Chronic headaches R51 and Degenerative disc disease at L5-S1 level M51.36 [place] [address] [address] March, Degenerative disc disease at L5-S1 level M51.36 [place] [address] [address] March, Degenerative disc disease at L5-S1 level M51.36 [place] [address] [address] March, Uncomplicated asthma, unspec ified asthma severity J45.909 ; Hypoxemia R09.02 ; Chronic headaches R51 and Degenerative disc disease at L5-S1 level M51.36 [place] [address] [address] March, [place] [address] [address] Feb, Acquired equinus deformity o f left foot M21.6X2 [place] [address] [address] Feb, Degenerative disc disease at L5-S1 level M51.36 [place] [address] [address] Feb, Degenerative disc disease at L5-S1 level M51.36 [facility] [address] [id number] [address] [place] [address] Jan, Degenerative disc disease at L5-S1 level M51.36 [facility] [address] [id number] [address] [place] [address] Jan, Degenerative disc disease at L5-S1 level M51.36 [facility] [address] [id number] [address] [place] [address] Dec, Degenerative disc disease at L5-S1 level M51.36 [facility] [address] [id number] [address] [place] [address] Dec, Overactive bladder N32.81 an d Degenerative disc disease at L5-S1 level M51.36 [facility] [address] [id number] [address] [place] [address] Dec, Degenerative disc disease at L5-S1 level M51.36 [facility] [address] [id number] [address] [place] [address] Dec, Degenerative disc disease at L5-S1 level M51.36 [facility] [address] [id number] [address] [place] [address] Nov, [facility] [address] [facility] [id number] [address] [place] [address] Nov, Chronic headaches R51 [facility] [address] [id number] [address] [place] [address] Nov, Degenerative disc disease at L5-S1 level M51.36 [facility] [address] [id number] [address] [place] [address] Nov, Left upper quadrant pain R10 .12 [facility] [address] [facility] [id number] [address] [place] [id number] Nov, Degenerative disc disease at L5-S1 level M51.36 [facility] [address] [id number] [address] [place] [address] Nov, Degenerative disc disease at L5-S1 level M51.36 [facility] [address] [address] Nov, Degenerative disc disease at L5-S1 level M51.36 [facility] [address] [address] Nov, Degenerative disc disease at L5-S1 level M51.36 [facility] [address] [place] [id number] [place] [address] Nov, Degenerative disc disease at L5-S1 level M51.36 [place] [address] [address] Oct, Degenerative disc disease at L5-S1 level M51.36 [place] [address] [address] Sep, Degenerative disc disease at L5-S1 level M51.36 [facility] [address] [place] [id number] [address] [place] [address] Sep, Degenerative disc disease at L5-S1 level M51.36 ; Bipolar 1 disorder F31.9 ; Chronic headaches R51 ; Hypopotassemia E87.6 ; Uncomplicated asthma, unspecified asthma severity J45.909 ; Anxiety F41.9 ; Overactive bladder N32.81 and Anemia D64.9 [place] [address] [place] [id number] [address] [place] [address] Sep, Degenerative disc disease at L5-S1 level M51.36 [facility] [address] [place] [id number] [address] [place] [address] Aug, [place] [address] [address] Aug, Degenerative disc disease at L5-S1 level M51.36 ; Chronic headaches R51 ; Bipolar 1 disorder F31.9 ; Overactive bladder N32.81 ; Anxiety F41.9 and Anemia D64.9 [facility] [address] [id number] [address] [place] [id number] 24 Aug, 2016 Degenerative disc disease at L5-S1 level M51.36 [facility] [address] [facility] [id number] [address] [place] [address] 18 Aug, 2016 [facility] [address] [facility] [id number] [address] [place] [address] 14 Aug, 2016 [facility] [address] [facility] [id number] [address] [place] [address] 10 Aug, 2016 Degenerative disc disease at L5-S1 level M51.36 [facility] [address] [place] [id number] [place] [address] 28 Jul, 2016 Degenerative disc disease at L5-S1 level M51.36 [facility] [address] [place] [id number] [address] [place] [address] 27 Jul, 2016 [facility] [address] [place] [id number] [place] [id number] 23 Jul, 2016 [facility] [address] [facility] [id number] [address] [place] [address] 22 Jul, 2016 Degenerative disc disease at L5-S1 level M51.36 ; Pure hyperglyceridemia E78.1 ; Bipolar 1 disorder F31.9 ; Anemia D64.9 ; Overactive bladder N32.81 ; Hypopotassemia E87.6 ; Anxiety F41.9 ; Mild intermittent asthma without complication J45.20 and Chronic headaches R51 [facility] [address] [facility] [id number] [address] [place] [address] 15 Jul, 2016 [facility] [address] [facility] [id number] [address] [place] [id number] 07 Jul, 2016 [facility] [address] [facility] [id number] [address] [place] [address] Jun, [facility] [address] [facility] [id number] [address] [place] [address] Jun, Bipolar 1 disorder F31.9 ; A nxiety F41.9 ; Overactive bladder N32.81 ; Chronic headaches R51 ; Degenerative disc disease at L5-S1 level M51.36 ; Hypopotassemia E87.6 ; Anemia D64.9 and Morbid obesity due to excess calories E66.01 [facility] [address] [facility] [id number] [address] [place] [address] Jun, [place] [address] [place] [id number] [place] [address] May, Overactive bladder N32.81 [place] [address] [place] [id number] [place] [address] May, Bipolar 1 disorder F31.9 ; A nemia D64.9 ; Overactive bladder N32.81 ; Chronic headaches R51 ; Hypopotassemia E87.6 ; Degenerative disc disease at L5-S1 level M51.36 and Uncomplicated asthma, unspecified asthma severity J45.909 [place] [address] [place] [id number] [place] [address] May, [place] [address] [place] [id number] [place] [address] May, Chronic headaches R51 [place] [address] [place] [id number] [place] [address] Apr, Chronic headaches R51 [place] [address] [place] [id number] [place] [address] March, Chronic headaches R51 [place] [address] [place] [id number] [place] [address] March, [place] [address] [place] [id number] [place] [address] Feb, Chronic headaches R51 and De generative disc disease at L5-S1 level M51.36 [place] [address] [place] [id number] [place] [address] Feb, Hypopotassemia E87.6 ; Anemi a D64.9 ; Overactive bladder N32.81 ; Chronic headaches R51 and Degenerative disc disease at L5-S1 level M51.36 [place] [address] [place] [id number] [place] [address] 07 Feb, 2016 Bipolar 1 disorder F31.9 ; A nemia D64.9 and Overactive bladder N32.81 [place] [address] [place] [id number] [place] [address] 06 Feb, 2016 Scabies B86 ; Bipolar 1 diso rder F31.9 ; Anemia D64.9 ; Overactive bladder N32.81 ; Chronic headaches R51 ; Degenerative disc disease at L5-S1 level M51.36 and Wellness examination Z00.00 [place] [address] [facility] [id number] [address] [place] [address] 17 Feb, 2009 [place] [address] [place] [id number] [address] [place] [address] Oct, IMMUNIZATIONS No Known Immunizations SOCIAL HISTORY Never Assessed REASON FOR VISIT Medicare AW - Initial Visit-[facility] PLAN OF CARE VITAL SIGNS Height 65.0 in 2018-03-06 Weight 300.9 lbs 2018-03-06 Temperature 97.8 degrees Fahrenheit 2018-03-06 Heart Rate 80 bpm 2018-03-06 Respiratory Rate 22 2018-03-06 BMI 50.07 kg/m2 2018-03-06 Blood pressure systolic 118 mmHg 2018-03-06 Blood pressure diastolic 76 mmHg 2018-03-06 MEDICATIONS Medication Instructions Dosage Frequency Start Date End Date Duration S jf Ardonor-Con M20 20MEQ 1 tablet 12h Acti ve Effexor XR 150 MG Orally Once a day 1 capsule with food 24h Active Hydrocodone-Ibuprofen 7.5-200 MG Orally every 6 hrs 1 tablet as nee ded 6h Feb, 28 days Active Zofran ODT 4 MG Orally every 8 hrs 1 tablet on the tongue and al low to dissolve 8h Nov, Not-Taking Albuterol Sulfate HFA 108 (90 Base) MCG/ACT Inhalation every 4 hrs 2 puffs as needed 4h May, Active Neurontin 600 MG Orally Three times a day 1 tablet 8h Active Topamax 100 mg Orally Twice a day 2 tablets 12h Feb, 30 days Active Seroquel 200 mg Orally Once a day 1 tablet at bedtime 24h Active Ferrous Sulfate 325 (65 Fe) mg Orally 2 times a day 1 tablet 12h Active Kblebxophp-XHCX-Ssgcmrbp 50-325-40 MG Orally every 4 hrs 1 tablet a s needed 4h Dec, Active RESULTS No Results PROCEDURES Procedure Date Ordered Result Body Site ANNUAL WELLNES VST; PERSNL PPS INIT March 06, 2018 FALL RISK ASSESSMENT DOCD March 06, 2018 [facility] VISIT ESTABLISHED PATIENT March 06, 2018 PT TOBACCO SCREEN RCVD TLK March 06, 2018 INSTRUCTIONS MEDICATIONS ADMINISTERED No Known Medications [...] interstem replaced 05/2016 Hospitalization History [facility] [place]- Headache 12/18/2017
--- OUTSIDE RECORDS SUMMARY | 2019-11-27 06:44 | XMS REPORT ---
Author Author Tish MALCOLM Organization [facility] [place] Address [address] [place] [address] Care Team Providers Care Tire Servicer Name Role Phone CHARIS MALCOLM Unavailable PROBLEMS Type Condition ICD9-CM Code UEY10-CW Code Onset Dates Condition S tatus SNOMED Code Problem Hypoxemia R09.02 Active 173091130 Problem Other chronic pain G89.29 Active 8 6040603 Problem Morbid obesity due to excess calories E66.01 Active 323050668 Problem Chronic post-traumatic stress disorder (PTSD) F43. 12 Active 350608629 Problem Bipolar I disorder with depression F31.9 Active 57621784 Problem Moderate persistent asthma with exacerbation J45.4 1 Active 938793498 Problem Obesity, morbid E66.01 Active 2381 86326 Problem Unsteady gait R26.81 Active 735829 08 Problem Chronic fatigue R53.82 Active 8422 9001 Problem Overactive bladder N32.81 Active 2 65669054 Problem Chronic headaches R51 Active 43 8110149 Problem Pure hyperglyceridemia E78.1 Active 655720842 Problem Degenerative disc disease at L5-S1 level M51.36 Active 36984649 Problem Uncomplicated asthma, unspecified asthma severity J45.909 Active 515721192 Problem Anemia D64.9 Active 504172370 Problem Anxiety F41.9 Active 80884569 Problem Hypopotassemia E87.6 Active 58521 004 Problem Acquired equinus deformity of left foot M21.6X2 Active 56570521 ALLERGIES Substance Reaction Event Type Date Status Sulfamethoxazole-Trimethoprim Unknown Drug Allergy Apr, 201 8 Active Penicillin V Potassium Unknown Drug Allergy Apr, Activ e Morphine Sulfate anaphylaxis Drug Allergy Apr, Active Mobic fall asleep and sleep walk Drug Allergy Apr, A ctive Codeine Sulfate Unknown Drug Allergy Apr, Active Amoxicillin rash Drug Allergy Apr, Active paper tape rash Non Drug Allergy Apr, Active pink dye, purple dye sick to stomach Non Drug Allergy Apr, Active ENCOUNTERS Encounter Location Date Diagnosis [facility] [place] [address] [id number] [address] [place] [phone] Aug, [facility] [place] [address] [id number] [address] [place] [phone] Jul, [facility] [place] [address] [id number] [address] [place] [phone] Jul, [facility] [place] [address] [id number] [address] [place] [address] Jul, [facility] [place] [address] [facility] [id number] [address] [place] [id number] Jun, Degenerative disc disease at L5-S1 level M51.36 [facility] [place] [address] [id number] [address] [place] [phone] Jun, [facility] [place] [address] [facility] [id number] [address] [place] [phone] Jun, Medicare annual wellness vis it, initial Z00.00 [facility] [place] [address] [id number] [address] [place] [phone] Jun, [facility] [place] [address] [facility] [id number] [address] [place] [phone] Jun, Bipolar I disorder with depr ession F31.9 and Chronic post-traumatic stress disorder (PTSD) F43.12 [facility] [place] [address] [facility] [id number] [address] [place] [address] Jun, Degenerative disc disease at L5-S1 level M51.36 [facility] [place] [address] [id number] [address] [place] [phone] Jun, [facility] [place] [address] [facility] [id number] [address] [place] [phone] May, [facility] [place] [address] [facility] [id number] [address] [place] [phone] May, [facility] [place] [address] [facility] [id number] [address] [place] [phone] Apr, [facility] [place] [address] [id number] [address] [place] [phone] Apr, Unsteady gait R26.81 ; Chron ic fatigue R53.82 ; SOB (shortness of breath) R06.02 and Moderate persistent asthma with exacerbation J45.41 [place] [address] [id number] [address] [place] [phone] Apr, [place] [address] [id number] [address] [place] [phone] 05 Apr, 2018 Medicare annual wellness vis it, initial Z00.00 [place] [address] [id number] [place] [phone] March, [place] [address] [facility] [id number] [address] [place] [phone] March, [place] [address] [facility] [id number] [place] [phone] Feb, Medicare annual wellness vis it, initial Z00.00 ; Bipolar 1 disorder F31.9 ; Low back pain M54.5 and Other chronic pain G89.29 [place] [address] [facility] [id number] [address] [place] [phone] Jan, [place] [address] [facility] [id number] [address] [place] [phone] Dec, Frequent headaches R51 and D egenerative disc disease at L5-S1 level M51.36 [place] [id number] [id number] [address] [place] [phone] Nov, [facility] [address] [facility] [id number] [address] [place] [phone] Nov, Chronic intractable headache , unspecified headache type R51 [facility] [address] [facility] [id number] [address] [place] [address] Nov, Chronic headaches R51 and BM I 45.0-49.9, adult Z68.42 [place] [address] [address] Nov, [place] [address] [address] Nov, Obesity, morbid E66.01 ; Unc omplicated asthma, unspecified asthma severity J45.909 ; Anxiety F41.9 ; Pure hyperglyceridemia E78.1 and Family history of diabetes mellitus Z83.3 [place] [address] [address] Oct, Bronchitis J40 [place] [address] [address] Oct, Chronic headaches R51 [address] [address] Sep, [address] [address] Sep, Chronic headaches R51 ; Othe r chronic pain G89.29 ; Anemia D64.9 and Obesity, morbid E66.[address] [address] Aug, Acute suppurative otitis med ia of right ear without spontaneous rupture of tympanic membrane, recurrence not specified H66.[address] [address] Aug, Other chronic pain G89.[address] [address] 18 Jul, 2017 Degenerative disc disease at L5-S1 level M51.[address] [address] 07 Jul, 2017 Other chronic pain G89.29 an d Sprain of deltoid ligament of left ankle, subsequent encounter S93.422D [address] [address] Jul, Degenerative disc disease at L5-S1 level M51.36 [facility] [place] [address] [id number] [address] [place] [phone] Jun, [facility] [place] [address] [id number] [address] [place] [phone] Jun, Degenerative disc disease at L5-S1 level M51.36 [facility] [place] [address] [id number] [address] [place] [phone] Jun, [facility] [place] [address] [id number] [address] [place] [phone] Jun, [facility] [place] [address] [id number] [address] [place] [phone] Jun, [facility] [place] [address] [id number] [address] [place] [phone] May, [facility] [place] [address] [id number] [address] [place] [id number] May, [facility] [place] [address] [id number] [address] [place] [phone] May, Rib pain on left side R07.81 [facility] [place] [address] [facility] [id number] [address] [place] [phone] Apr, Morbid obesity due to excess calories E66.01 [facility] [place] [address] [facility] [id number] [address] [place] [id number] Apr, Gastroenteritis K52.9 [facility] [place] [address] [id number] [address] [place] [phone] Apr, Degenerative disc disease at L5-S1 level M51.36 [facility] [place] [address] [id number] [address] [place] [address] March, Degenerative disc disease at L5-S1 level M51.36 [facility] [place] [address] [facility] [id number] [address] [place] [address] March, Bipolar 1 disorder F31.9 ; A nemia D64.9 ; Hypopotassemia E87.6 ; Uncomplicated asthma, unspecified asthma severity J45.909 ; Anxiety F41.9 ; Chronic headaches R51 and Degenerative disc disease at L5-S1 level M51.36 [place] [address] [place] [id number] [place] [address] March, Degenerative disc disease at L5-S1 level M51.36 [place] [address] [address] March, Degenerative disc disease at L5-S1 level M51.36 [place] [address] [address] March, Uncomplicated asthma, unspec ified asthma severity J45.909 ; Hypoxemia R09.02 ; Chronic headaches R51 and Degenerative disc disease at L5-S1 level M51.36 [place] [address] [address] March, [place] [address] [address] Feb, Acquired equinus deformity o f left foot M21.6X2 [place] [address] [address] Feb, Degenerative disc disease at L5-S1 level M51.36 [place] [address] [address] Feb, Degenerative disc disease at L5-S1 level M51.36 [place] [address] [place] [id number] [place] [address] Jan, Degenerative disc disease at L5-S1 level M51.36 [place] [address] [place] [id number] [place] [address] Jan, Degenerative disc disease at L5-S1 level M51.36 [place] [address] [place] [id number] [place] [address] Dec, Degenerative disc disease at L5-S1 level M51.36 [facility] [place] [address] [facility] [id number] [address] [place] [id number] 16 Dec, 2016 Overactive bladder N32.81 an d Degenerative disc disease at L5-S1 level M51.36 [facility] [place] [address] [id number] [address] [place] [address] Dec, Degenerative disc disease at L5-S1 level M51.36 [facility] [place] [address] [id number] [address] [place] [phone] Dec, Degenerative disc disease at L5-S1 level M51.36 [facility] [place] [address] [id number] [address] [place] [phone] Nov, [facility] [place] [address] [facility] [id number] [address] [place] [phone] Nov, Chronic headaches R51 [facility] [place] [address] [id number] [address] [place] [phone] Nov, Degenerative disc disease at L5-S1 level M51.36 [facility] [place] [address] [id number] [address] [place] [phone] Nov, Left upper quadrant pain R10 .12 [facility] [place] [address] [facility] [id number] [address] [place] [phone] Nov, Degenerative disc disease at L5-S1 level M51.36 [facility] [place] [address] [id number] [address] [place] [phone] Nov, Degenerative disc disease at L5-S1 level M51.36 [facility] [place] [address] [id number] [address] [place] [phone] Nov, Degenerative disc disease at L5-S1 level M51.36 [facility] [place] [address] [facility] [id number] [address] [place] [phone] Nov, Degenerative disc disease at L5-S1 level M51.36 [facility] [place] [address] [id number] [address] [place] [phone] Nov, Degenerative disc disease at L5-S1 level M51.36 [facility] [place] [address] [address] Oct, Degenerative disc disease at L5-S1 level M51.36 [facility] [place] [address] [place] [id number] [place] [address] Sep, Degenerative disc disease at L5-S1 level M51.36 [facility] [place] [address] [place] [id number] [place] [address] Sep, Degenerative disc disease at L5-S1 level M51.36 ; Bipolar 1 disorder F31.9 ; Chronic headaches R51 ; Hypopotassemia E87.6 ; Uncomplicated asthma, unspecified asthma severity J45.909 ; Anxiety F41.9 ; Overactive bladder N32.81 and Anemia D64.9 [place] [address] [address] Sep, Degenerative disc disease at L5-S1 level M51.36 [facility] [place] [address] [place] [id number] [address] [place] [phone] Aug, [facility] [place] [address] [address] Aug, Degenerative disc disease at L5-S1 level M51.36 ; Chronic headaches R51 ; Bipolar 1 disorder F31.9 ; Overactive bladder N32.81 ; Anxiety F41.9 and Anemia D64.9 [facility] [place] [address] [place] [id number] [address] [place] [phone] Aug, Degenerative disc disease at L5-S1 level M51.36 [facility] [place] [address] [place] [id number] [place] [address] Aug, [facility] [place] [address] [place] [id number] [address] [place] [id number] 14 Aug, 2016 [facility] [place] [address] [address] Aug, Degenerative disc disease at L5-S1 level M51.36 [facility] [place] [address] [place] [id number] [place] [address] 28 Jul, 2016 Degenerative disc disease at L5-S1 level M51.36 [facility] [place] [address] [facility] [id number] [address] [place] [phone] 27 Jul, 2016 [facility] [place] [address] [address] Jul, [facility] [place] [address] [facility] [id number] [place] [address] 22 Jul, 2016 Degenerative disc disease at L5-S1 level M51.36 ; Pure hyperglyceridemia E78.1 ; Bipolar 1 disorder F31.9 ; Anemia D64.9 ; Overactive bladder N32.81 ; Hypopotassemia E87.6 ; Anxiety F41.9 ; Mild intermittent asthma without complication J45.20 and Chronic headaches R51 [facility] [place] [address] [address] 15 Jul, 2016 [facility] [place] [address] [address] 07 Jul, 2016 [facility] [place] [address] [address] Jun, [facility] [place] [address] [address] Jun, Bipolar 1 disorder F31.9 ; A nxiety F41.9 ; Overactive bladder N32.81 ; Chronic headaches R51 ; Degenerative disc disease at L5-S1 level M51.36 ; Hypopotassemia E87.6 ; Anemia D64.9 and Morbid obesity due to excess calories E66.01 [facility] [place] [address] [place] [id number] [address] [place] [address] Jun, [facility] [place] [address] [place] [id number] [address] [place] [phone] May, Overactive bladder N32.81 [place] [address] [facility] [id number] [address] [place] [address] May, Bipolar 1 disorder F31.9 ; A nemia D64.9 ; Overactive bladder N32.81 ; Chronic headaches R51 ; Hypopotassemia E87.6 ; Degenerative disc disease at L5-S1 level M51.36 and Uncomplicated asthma, unspecified asthma severity J45.909 [facility] [place] [address] [facility] [id number] [address] [place] [phone] May, [facility] [place] [address] [facility] [id number] [address] [place] [phone] May, Chronic headaches R51 [facility] [place] [address] [place] [id number] [address] [place] [phone] Apr, Chronic headaches R51 [facility] [place] [address] [place] [id number] [address] [place] [phone] March, Chronic headaches R51 [facility] [place] [address] [facility] [id number] [address] [place] [id number] March, [facility] [place] [address] [facility] [id number] [address] [place] [phone] Feb, Chronic headaches R51 and De generative disc disease at L5-S1 level M51.36 [facility] [place] [address] [place] [id number] [address] [place] [phone] Feb, Hypopotassemia E87.6 ; Anemi a D64.9 ; Overactive bladder N32.81 ; Chronic headaches R51 and Degenerative disc disease at L5-S1 level M51.36 [facility] [place] [address] [facility] [id number] [address] [place] [address] Feb, Bipolar 1 disorder F31.9 ; O veractive bladder N32.81 and Anemia D64.9 [facility] [place] [address] [facility] [id number] [address] [place] [phone] Feb, Scabies B86 ; Bipolar 1 diso rder F31.9 ; Anemia D64.9 ; Overactive bladder N32.81 ; Chronic headaches R51 ; Degenerative disc disease at L5-S1 level M51.36 and Wellness examination Z00.00 [facility] [place] [address] [facility] [id number] [address] [address] 17 Feb, 2009 [facility] [place] [address] [facility] [id number] [address] [address] 10 Oct, 2008 IMMUNIZATIONS No Known Immunizations SOCIAL HISTORY Never Assessed REASON FOR VISIT Wheelchair CARLITO leggett requesting wheelchair for hips giving out and currently gets physical therapy and was advised that a wheelchair would only be used for a mariana rt time while her legs strengthen up-[place] PLAN OF CARE VITAL SIGNS Height 65.0 in 2018-05-13 Weight 303.7 lbs 2018-05-13 Temperature 99.6 degrees Fahrenheit 2018-05-13 Heart Rate 99 bpm 2018-05-13 Respiratory Rate 20 2018-05-13 Oximetry on room air:96 % 2018-05-13 BMI 50.53 kg/m2 2018-05-13 Blood pressure systolic 136 mmHg 2018-05-13 Blood pressure diastolic 82 mmHg 2018-05-13 MEDICATIONS Medication Instructions Dosage Frequency Start Date End Date Duration S tatus Neurontin 600 MG Orally Three times a day 1 tablet 8h Active Albuterol Sulfate HFA 108 (90 Base) MCG/ACT Inhalation every 4 hrs 2 puffs as needed 4h May, Active Zofran ODT 4 MG Orally every 8 hrs 1 tablet on the tongue and al low to dissolve 8h Nov, Not-Taking Seroquel 200 mg Orally Once a day 1 tablet at bedtime 24h Active Klor-Con M20 20MEQ 1 tablet 12h Acti ve Ferrous Sulfate 325 (65 Fe) mg Orally 2 times a day 1 tablet 12h Active Effexor XR 150 MG Orally Once a day 1 capsule with food 24h Active Wheel Chair K1 Basic Desk Arm 1 as directed Apr, Active Doxycycline Hyclate 100 mg Orally every 12 hrs 1 capsule 12h Apr, Apr, 10 day(s) Active Uclfgeerrf-ZWWG-Qvgcnzjo 50-325-40 MG Orally every 4 hrs 1 tablet a s needed 4h Dec, Active PredniSONE 20 mg Orally Once a day 2 tablets 24h Apr, Apr, 05 days Active Hydrocodone-Ibuprofen 7.5-200 MG Orally every 6 hrs 1 tablet as nee ded 6h Apr, 28 days Active Topamax 100 mg Orally Twice a day 2 tablets 12h Feb, 30 days Active RESULTS No Results PROCEDURES Procedure Date Ordered Result Body Site [facility] VISIT ESTABLISHED PATIENT May 13, 2018 INSTRUCTIONS MEDICATIONS ADMINISTERED No Known Medications [...] interstem replaced 05/2016 Hospitalization History [facility] [place]- Headache 12/18/2017
--- OUTSIDE RECORDS SUMMARY | 2019-11-27 06:44 | XMS REPORT ---
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 Active 04061265 Problem Chronic fatigue R53.82 Active 8422 9001 Problem Moderate persistent asthma with exacerbation J45.4 1 Active 430629594 Problem Other chronic pain G89.29 Active 8 4608891 Problem Morbid obesity due to excess calories E66.01 Active 094581951 Problem Unsteady gait R26.81 Active 641405 08 Problem Obesity, morbid E66.01 Active 2381 43091 Problem Pure hyperglyceridemia E78.1 Active 494007811 Problem Overactive bladder N32.81 Active 2 67206881 Problem Anemia D64.9 Active 693726830 Problem Hypopotassemia E87.6 Active 78220 004 Problem Bipolar 1 disorder F31.9 Active 3 78621034 Problem Degenerative disc disease at L5-S1 level M51.36 Active 50144148 Problem Chronic headaches R51 Active 43 7755894 Problem Uncomplicated asthma, unspecified asthma severity J45.909 Active 087323350 ALLERGIES No Information ENCOUNTERS Encounter Location Date Diagnosis [facility] [address] [facility] [id number] [address] [place] [phone] Jun, [facility] [address] [facility] [id number] [address] [place] [phone] Jun, [facility] [address] [facility] [id number] [address] [place] [address] May, [facility] [address] [facility] [id number] [address] [place] [address] May, [facility] [address] [facility] [id number] [address] [place] [phone] Apr, [place] [address] [facility] [id number] [address] [place] [phone] Apr, Unsteady gait R26.81 ; Chron ic fatigue R53.82 ; SOB (shortness of breath) R06.02 and Moderate persistent asthma with exacerbation J45.41 [place] [address] [facility] [id number] [address] [place] [address] Apr, [place] [address] [facility] [id number] [address] [place] [address] Apr, Medicare annual wellness vis it, initial Z00.00 [place] [address] [place] [id number] [place] [address] March, [place] [address] [place] [id number] [place] [address] March, [facility] [address] [place] [id number] [address] [place] [address] Feb, Medicare annual wellness vis it, initial Z00.00 ; Bipolar 1 disorder F31.9 ; Low back pain M54.5 and Other chronic pain G89.29 [place] [address] [place] [id number] [address] [place] [address] Jan, [facility] [address] [place] [id number] [address] [place] [address] Dec, Frequent headaches R51 and D egenerative disc disease at L5-S1 level M51.36 [place] [address] [facility] [id number] [address] [place] [address] Nov, [facility] [address] [facility] [id number] [address] [place] [address] Nov, Chronic intractable headache , unspecified headache type R51 [facility] [address] [place] [id number] [address] [place] [address] Nov, Chronic headaches R51 and BM I 45.0-49.9, adult Z68.42 [place] [address] [address] Nov, [place] [address] [place] [id number] [place] [address] Nov, Obesity, morbid E66.01 ; Unc omplicated asthma, unspecified asthma severity J45.909 ; Anxiety F41.9 ; Pure hyperglyceridemia E78.1 and Family history of diabetes mellitus Z83.3 [place] [address] [id number] 15 Oct, 2017 Bronchitis J40 [place] [address] [phone] 06 Oct, 2017 Chronic headaches R51 [place] [address] [address] Sep, [place] [address] [address] Sep, Chronic headaches R51 ; Othe r chronic pain G89.29 ; Anemia D64.9 and Obesity, morbid E66.01 [place] [address] [address] 12 Aug, 2017 Acute suppurative otitis med ia of right ear without spontaneous rupture of tympanic membrane, recurrence not specified H66.001 [place] [address] [address] 11 Aug, 2017 Other chronic pain G89.29 [place] [address] [place] [id number] [address] [place] [id number] 18 Jul, 2017 Degenerative disc disease at L5-S1 level M51.36 [place] [address] [place] [id number] [place] [phone] 07 Jul, 2017 Other chronic pain G89.29 an d Sprain of deltoid ligament of left ankle, subsequent encounter S93.422D [facility] [address] [id number] [address] [place] [address] Jul, Degenerative disc disease at L5-S1 level M51.36 [facility] [address] [id number] [address] [place] [address] Jun, [facility] [address] [id number] [address] [place] [address] Jun, Degenerative disc disease at L5-S1 level M51.36 [facility] [address] [id number] [address] [place] [phone] Jun, [facility] [address] [id number] [address] [place] [phone] Jun, [facility] [address] [id number] [address] [place] [address] Jun, [facility] [address] [id number] [address] [place] [address] May, [facility] [address] [id number] [address] [place] [address] May, [facility] [address] [id number] [address] [place] [address] May, Rib pain on left side R07.81 [facility] [address] [id number] [address] [place] [address] Apr, Morbid obesity due to excess calories E66.01 [facility] [address] [id number] [address] [place] [address] Apr, Gastroenteritis K52.9 [facility] [address] [id number] [address] [place] [address] Apr, Degenerative disc disease at L5-S1 level M51.36 [facility] [address] [id number] [address] [place] [address] March, Degenerative disc disease at L5-S1 level M51.36 [facility] [address] [address] March, Bipolar 1 disorder F31.9 ; A nemia D64.9 ; Hypopotassemia E87.6 ; Uncomplicated asthma, unspecified asthma severity J45.909 ; Anxiety F41.9 ; Chronic headaches R51 and Degenerative disc disease at L5-S1 level M51.36 [place] [address] [address] March, Degenerative disc disease at L5-S1 level M51.36 [place] [address] [address] March, Degenerative disc disease at L5-S1 level M51.36 [place] [address] [address] March, Uncomplicated asthma, unspec ified asthma severity J45.909 ; Hypoxemia R09.02 ; Chronic headaches R51 and Degenerative disc disease at L5-S1 level M51.36 [place] [address] [address] March, [place] [address] [address] Feb, Acquired equinus deformity o f left foot M21.6X2 [place] [address] [address] Feb, Degenerative disc disease at L5-S1 level M51.36 [place] [address] [place] [id number] [address] [place] [address] Feb, Degenerative disc disease at L5-S1 level M51.36 [place] [address] [address] Jan, Degenerative disc disease at L5-S1 level M51.36 [place] [address] [address] Jan, Degenerative disc disease at L5-S1 level M51.36 [place] [address] [id number] [address] [place] [address] Dec, Degenerative disc disease at L5-S1 level M51.36 [facility] [address] [facility] [id number] [address] [place] [address] Dec, Overactive bladder N32.81 an d Degenerative disc disease at L5-S1 level M51.36 [facility] [address] [facility] [id number] [address] [place] [address] Dec, Degenerative disc disease at L5-S1 level M51.36 [facility] [address] [id number] [address] [place] [address] Dec, Degenerative disc disease at L5-S1 level M51.36 [facility] [address] [facility] [id number] [address] [place] [phone] Nov, [facility] [address] [facility] [id number] [address] [place] [phone] Nov, Chronic headaches R51 [facility] [address] [id number] [address] [place] [address] Nov, Degenerative disc disease at L5-S1 level M51.36 [facility] [address] [facility] [id number] [address] [place] [address] Nov, Left upper quadrant pain R10 .12 [facility] [address] [facility] [id number] [address] [place] [address] Nov, Degenerative disc disease at L5-S1 level M51.36 [facility] [address] [facility] [id number] [address] [place] [address] Nov, Degenerative disc disease at L5-S1 level M51.36 [facility] [address] [facility] [id number] [address] [place] [address] Nov, Degenerative disc disease at L5-S1 level M51.36 [facility] [address] [facility] [id number] [address] [place] [address] Nov, Degenerative disc disease at L5-S1 level M51.36 [facility] [address] [place] [id number] [address] [place] [address] Nov, Degenerative disc disease at L5-S1 level M51.36 [facility] [address] [place] [id number] [address] [place] [address] Oct, Degenerative disc disease at L5-S1 level M51.36 [facility] [address] [place] [id number] [place] [address] Sep, Degenerative disc disease at L5-S1 level M51.36 [facility] [address] [place] [id number] [address] [place] [address] Sep, Degenerative disc disease at L5-S1 level M51.36 ; Bipolar 1 disorder F31.9 ; Chronic headaches R51 ; Hypopotassemia E87.6 ; Uncomplicated asthma, unspecified asthma severity J45.909 ; Anxiety F41.9 ; Overactive bladder N32.81 and Anemia D64.9 [place] [address] [place] [id number] [address] [place] [address] Sep, Degenerative disc disease at L5-S1 level M51.36 [place] [address] [place] [id number] [place] [address] Aug, [place] [address] [place] [id number] [place] [address] Aug, Degenerative disc disease at L5-S1 level M51.36 ; Chronic headaches R51 ; Bipolar 1 disorder F31.9 ; Overactive bladder N32.81 ; Anxiety F41.9 and Anemia D64.9 [facility] [address] [facility] [id number] [address] [place] [address] Aug, Degenerative disc disease at L5-S1 level M51.36 [facility] [address] [place] [id number] [address] [place] [address] 18 Aug, 2016 [place] [address] [place] [id number] [place] [address] 14 Aug, 2016 [facility] [address] [address] 10 Aug, 2016 Degenerative disc disease at L5-S1 level M51.36 [facility] [address] [address] 28 Jul, 2016 Degenerative disc disease at L5-S1 level M51.36 [facility] [address] [address] 27 Jul, 2016 [facility] [address] [address] 23 Jul, 2016 [facility] [address] [address] 22 Jul, 2016 Degenerative disc disease at L5-S1 level M51.36 ; Pure hyperglyceridemia E78.1 ; Bipolar 1 disorder F31.9 ; Anemia D64.9 ; Overactive bladder N32.81 ; Hypopotassemia E87.6 ; Anxiety F41.9 ; Mild intermittent asthma without complication J45.20 and Chronic headaches R51 [facility] [address] [address] 15 Jul, 2016 [place] [address] [address] 07 Jul, 2016 [facility] [address] [address] Jun, [facility] [address] [address] Jun, Bipolar 1 disorder F31.9 ; A nxiety F41.9 ; Overactive bladder N32.81 ; Chronic headaches R51 ; Degenerative disc disease at L5-S1 level M51.36 ; Hypopotassemia E87.6 ; Anemia D64.9 and Morbid obesity due to excess calories E66.01 [facility] [address] [address] Jun, [facility] [address] [place] [address] May, Overactive bladder N32.81 [facility] [address] [place] [id number] [place] [address] May, Bipolar 1 disorder F31.9 ; A nemia D64.9 ; Overactive bladder N32.81 ; Chronic headaches R51 ; Hypopotassemia E87.6 ; Degenerative disc disease at L5-S1 level M51.36 and Uncomplicated asthma, unspecified asthma severity J45.909 [facility] [address] [place] [id number] [address] [place] [address] May, [facility] [address] [address] May, Chronic headaches R51 [place] [address] [address] Apr, Chronic headaches R51 [facility] [address] [address] March, Chronic headaches R51 [facility] [address] [place] [id number] [place] [address] March, [facility] [address] [place] [id number] [place] [address] Feb, Chronic headaches R51 and De generative disc disease at L5-S1 level M51.36 [facility] [address] [place] [id number] [address] [place] [address] Feb, Hypopotassemia E87.6 ; Anemi a D64.9 ; Overactive bladder N32.81 ; Chronic headaches R51 and Degenerative disc disease at L5-S1 level M51.36 [facility] [address] [place] [id number] [address] [place] [address] Feb, Bipolar 1 disorder F31.9 ; A nemia D64.9 and Overactive bladder N32.81 [facility] [address] [place] [id number] [address] [place] [address] Feb, Scabies B86 ; Bipolar 1 diso rder F31.9 ; Anemia D64.9 ; Overactive bladder N32.81 ; Chronic headaches R51 ; Degenerative disc disease at L5-S1 level M51.36 and Wellness examination Z00.00 [facility] [address] [facility] [id number] [place] [address] Feb, [facility] [address] [facility] [id number] [address] [place] [address] Oct, IMMUNIZATIONS No Known Immunizations SOCIAL HISTORY Never Assessed REASON FOR VISIT p.t. referral PLAN OF CARE VITAL SIGNS MEDICATIONS Unknown [...] interstem replaced 05/2016 Hospitalization History [facility]- Headache 12/18/2017
--- OUTSIDE RECORDS SUMMARY | 2019-11-27 06:44 | XMS REPORT ---
Author Author Tish Luo Organization [facility] Address [address] [place] [address] Care Team Providers Care Vise Hand Name Role Phone JIM Luo Unavailable PROBLEMS Type Condition ICD9-CM Code NEN06-CC Code Onset Dates Condition S tatus SNOMED Code Problem Morbid obesity due to excess calories E66.01 Active 058940759 Problem Obesity, morbid E66.01 Active 2381 46166 Problem Other chronic pain G89.29 Active 8 6267842 Problem Controlled type 2 diabetes m ellitus without complication, without long- term current use of insulin E11.9 Active 156713671 Problem Bipolar I disorder with depression F31.9 Active 80572983 Problem Chronic fatigue R53.82 Active 8422 9001 Problem Moderate persistent asthma with exacerbation J45.4 1 Active 149956151 Problem Chronic post-traumatic stress disorder (PTSD) F43. 12 Active 611336631 Problem Unsteady gait R26.81 Active 467383 08 Problem Chronic headaches R51 Active 43 4104047 Problem Anemia D64.9 Active 663276535 Problem Pure hyperglyceridemia E78.1 Active 809426165 Problem Overactive bladder N32.81 Active 2 38273803 Problem Uncomplicated asthma, unspecified asthma severity J45.909 Active 302952139 Problem Anxiety F41.9 Active 53557992 Problem Hypopotassemia E87.6 Active 67750 004 Problem Acquired equinus deformity of left foot M21.6X2 Active 24988454 Problem Degenerative disc disease at L5-S1 level M51.36 Active 61601622 Problem Hypoxemia R09.02 Active [id number] ALLERGIES No Information ENCOUNTERS Encounter Location Date Diagnosis [facility] [address] [facility] [id number] [address] [place] [id number] Aug, [facility] [address] [facility] [id number] [address] [place] [address] Aug, [place] [address] [place] [id number] [address] [place] [address] Aug, [place] [address] [address] Jul, [place] [address] [address] Jul, [place] [address] [address] Jul, Other chronic pain G89.29 ; Dysuria R30.0 ; Degenerative disc disease at L5-S1 level M51.36 ; Uncomplicated asthma, unspecified asthma severity J45.909 ; Vagina, candidiasis B37.3 ; Glucose found in urine on examination R81 ; Family history of diabetes mellitus Z83.3 and Controlled type 2 diabetes mellitus without complication, without long-term current use of insulin E11.9 [place] [address] [place] [id number] [address] [place] [address] Jun, Degenerative disc disease at L5-S1 level M51.36 [place] [address] [place] [id number] [address] [place] [phone] Jun, [place] [address] [place] [id number] [place] [address] Jun, Medicare annual wellness vis it, initial Z00.00 [place] [address] [place] [id number] [address] [place] [address] Jun, [place] [address] [place] [id number] [address] [place] [address] Jun, Bipolar I disorder with depr ession F31.9 and Chronic post-traumatic stress disorder (PTSD) F43.12 [place] [address] [place] [id number] [address] [place] [address] Jun, Degenerative disc disease at L5-S1 level M51.36 [place] [address] [place] [id number] [address] [place] [phone] Jun, [facility] [address] [id number] [address] [place] [address] May, [facility] [address] [facility] [id number] [address] [place] [phone] May, [facility] [address] [facility] [id number] [address] [place] [address] Apr, [facility] [address] [facility] [id number] [address] [place] [address] Apr, Unsteady gait R26.81 ; Chron ic fatigue R53.82 ; SOB (shortness of breath) R06.02 and Moderate persistent asthma with exacerbation J45.41 [facility] [address] [facility] [id number] [address] [place] [phone] Apr, [facility] [address] [facility] [id number] [address] [place] [phone] Apr, Medicare annual wellness vis it, initial Z00.00 [facility] [address] [facility] [id number] [address] [place] [address] March, [facility] [address] [facility] [id number] [address] [place] [phone] March, [facility] [address] [facility] [id number] [address] [place] [address] Feb, Medicare annual wellness vis it, initial Z00.00 ; Bipolar 1 disorder F31.9 ; Low back pain M54.5 and Other chronic pain G89.29 [facility] [address] [facility] [id number] [address] [place] [address] Jan, [facility] [address] [facility] [id number] [address] [place] [address] Dec, Frequent headaches R51 and D egenerative disc disease at L5-S1 level M51.36 [facility] [address] [facility] [id number] [address] [place] [phone] Nov, [facility] [address] [address] Nov, Chronic intractable headache , unspecified headache type R51 [facility] [address] [address] Nov, Chronic headaches R51 and BM I 45.0-49.9, adult Z68.42 [place] [address] [address] Nov, [place] [address] [address] Nov, Obesity, morbid E66.01 ; Unc omplicated asthma, unspecified asthma severity J45.909 ; Anxiety F41.9 ; Pure hyperglyceridemia E78.1 and Family history of diabetes mellitus Z83.3 [place] [address] [address] Oct, Bronchitis J40 [place] [address] [address] Oct, Chronic headaches R51 [place] [address] [address] Sep, [place] [address] [address] Sep, Chronic headaches R51 ; Othe r chronic pain G89.29 ; Anemia D64.9 and Obesity, morbid E66.01 [place] [address] [address] Aug, Acute suppurative otitis med ia of right ear without spontaneous rupture of tympanic membrane, recurrence not specified H66.001 [place] [address] [address] Aug, Other chronic pain G89.29 [place] [address] [address] 18 Jul, 2017 Degenerative disc disease at L5-S1 level M51.36 [facility] [address] [id number] [address] [place] [address] 07 Jul, 2017 Other chronic pain G89.29 an d Sprain of deltoid ligament of left ankle, subsequent encounter S93.422D [facility] [address] [id number] [address] [place] [address] 05 Jul, 2017 Degenerative disc disease at L5-S1 level M51.36 [facility] [address] [id number] [address] [place] [address] Jun, [facility] [address] [id number] [address] [place] [phone] Jun, Degenerative disc disease at L5-S1 level M51.36 [facility] [address] [id number] [address] [place] [phone] Jun, [facility] [address] [id number] [address] [place] [phone] Jun, [facility] [address] [id number] [address] [place] [phone] Jun, [facility] [address] [id number] [address] [place] [phone] May, [facility] [address] [id number] [address] [place] [address] May, [facility] [address] [id number] [address] [place] [address] May, Rib pain on left side R07.81 [facility] [address] [id number] [address] [place] [address] Apr, Morbid obesity due to excess calories E66.01 [facility] [address] [id number] [address] [place] [phone] Apr, Gastroenteritis K52.9 [facility] [address] [id number] [address] [place] [address] Apr, Degenerative disc disease at L5-S1 level M51.36 [place] [address] [address] March, Degenerative disc disease at L5-S1 level M51.36 [place] [address] [address] March, Bipolar 1 disorder F31.9 ; A nemia D64.9 ; Hypopotassemia E87.6 ; Uncomplicated asthma, unspecified asthma severity J45.909 ; Anxiety F41.9 ; Chronic headaches R51 and Degenerative disc disease at L5-S1 level M51.36 [place] [address] [address] March, Degenerative disc disease at L5-S1 level M51.36 [place] [address] [address] March, Degenerative disc disease at L5-S1 level M51.36 [place] [address] [address] March, Uncomplicated asthma, unspec ified asthma severity J45.909 ; Hypoxemia R09.02 ; Chronic headaches R51 and Degenerative disc disease at L5-S1 level M51.36 [place] [address] [address] March, [place] [address] [address] Feb, Acquired equinus deformity o f left foot M21.6X2 [place] [address] [address] Feb, Degenerative disc disease at L5-S1 level M51.36 [place] [address] [address] Feb, Degenerative disc disease at L5-S1 level M51.36 [place] [address] [address] Jan, Degenerative disc disease at L5-S1 level M51.36 [facility] [address] [id number] [address] [place] [address] Jan, Degenerative disc disease at L5-S1 level M51.36 [facility] [address] [id number] [address] [place] [address] Dec, Degenerative disc disease at L5-S1 level M51.36 [facility] [address] [id number] [address] [place] [address] Dec, Overactive bladder N32.81 an d Degenerative disc disease at L5-S1 level M51.36 [facility] [address] [id number] [address] [place] [id number] Dec, Degenerative disc disease at L5-S1 level M51.36 [facility] [address] [facility] [id number] [address] [place] [address] Dec, Degenerative disc disease at L5-S1 level M51.36 [facility] [address] [id number] [address] [place] [address] Nov, [facility] [address] [facility] [id number] [address] [place] [phone] Nov, Chronic headaches R51 [facility] [address] [facility] [id number] [address] [place] [address] Nov, Degenerative disc disease at L5-S1 level M51.36 [facility] [address] [id number] [address] [place] [address] Nov, Left upper quadrant pain R10 .12 [facility] [address] [id number] [address] [place] [id number] Nov, Degenerative disc disease at L5-S1 level M51.36 [facility] [address] [facility] [id number] [address] [place] [address] Nov, Degenerative disc disease at L5-S1 level M51.36 [facility] [address] [facility] [id number] [address] [place] [address] Nov, Degenerative disc disease at L5-S1 level M51.36 [place] [address] [address] Nov, Degenerative disc disease at L5-S1 level M51.36 [place] [address] [address] Nov, Degenerative disc disease at L5-S1 level M51.36 [place] [address] [address] Oct, Degenerative disc disease at L5-S1 level M51.36 [place] [address] [address] Sep, Degenerative disc disease at L5-S1 level M51.36 [place] [address] [address] Sep, Degenerative disc disease at L5-S1 level M51.36 ; Bipolar 1 disorder F31.9 ; Chronic headaches R51 ; Hypopotassemia E87.6 ; Uncomplicated asthma, unspecified asthma severity J45.909 ; Anxiety F41.9 ; Overactive bladder N32.81 and Anemia D64.9 [place] [address] [place] [id number] [address] [place] [address] Sep, Degenerative disc disease at L5-S1 level M51.36 [place] [address] [address] Aug, [place] [address] [place] [id number] [address] [place] [address] Aug, Degenerative disc disease at L5-S1 level M51.36 ; Chronic headaches R51 ; Bipolar 1 disorder F31.9 ; Overactive bladder N32.81 ; Anxiety F41.9 and Anemia D64.9 [place] [address] [place] [id number] [address] [place] [address] Aug, Degenerative disc disease at L5-S1 level M51.36 [place] [address] [place] [id number] [address] [place] [address] 18 Aug, 2016 [facility] [address] [address] 14 Aug, 2016 [facility] [address] [facility] [id number] [address] [place] [address] 10 Aug, 2016 Degenerative disc disease at L5-S1 level M51.36 [facility] [address] [place] [id number] [place] [address] 28 Jul, 2016 Degenerative disc disease at L5-S1 level M51.36 [facility] [address] [place] [id number] [place] [id number] 27 Jul, 2016 [facility] [address] [place] [id number] [place] [phone] 23 Jul, 2016 [facility] [address] [address] 22 Jul, 2016 Degenerative disc disease at L5-S1 level M51.36 ; Pure hyperglyceridemia E78.1 ; Bipolar 1 disorder F31.9 ; Anemia D64.9 ; Overactive bladder N32.81 ; Hypopotassemia E87.6 ; Anxiety F41.9 ; Mild intermittent asthma without complication J45.20 and Chronic headaches R51 [facility] [address] [place] [id number] [address] [place] [id number] 15 Jul, 2016 [facility] [address] [place] [id number] [address] [place] [phone] 07 Jul, 2016 [facility] [address] [place] [id number] [address] [place] [phone] Jun, [facility] [address] [place] [id number] [place] [address] Jun, Bipolar 1 disorder F31.9 ; A nxiety F41.9 ; Overactive bladder N32.81 ; Chronic headaches R51 ; Degenerative disc disease at L5-S1 level M51.36 ; Hypopotassemia E87.6 ; Anemia D64.9 and Morbid obesity due to excess calories E66.01 [facility] [address] [facility] [id number] [address] [place] [address] Jun, [facility] [address] [facility] [id number] [address] [place] [address] May, Overactive bladder N32.81 [facility] [address] [facility] [id number] [address] [place] [address] May, Bipolar 1 disorder F31.9 ; A nemia D64.9 ; Overactive bladder N32.81 ; Chronic headaches R51 ; Hypopotassemia E87.6 ; Degenerative disc disease at L5-S1 level M51.36 and Uncomplicated asthma, unspecified asthma severity J45.909 [place] [id number] [facility] [id number] [address] [place] [address] May, [place] [address] [place] [id number] [address] [place] [address] May, Chronic headaches R51 [place] [address] [place] [id number] [address] [place] [address] Apr, Chronic headaches R51 [place] [address] [place] [id number] [address] [place] [address] March, Chronic headaches R51 [place] [address] [place] [id number] [address] [place] [address] March, [facility] [address] [facility] [id number] [address] [place] [address] Feb, Chronic headaches R51 and De generative disc disease at L5-S1 level M51.36 [facility] [address] [facility] [id number] [address] [place] [address] Feb, Hypopotassemia E87.6 ; Anemi a D64.9 ; Overactive bladder N32.81 ; Chronic headaches R51 and Degenerative disc disease at L5-S1 level M51.36 [facility] [address] [place] [id number] [address] [place] [address] Feb, Bipolar 1 disorder F31.9 ; A nemia D64.9 and Overactive bladder N32.81 [place] [id number] [place] [address] Feb, Scabies B86 ; Bipolar 1 diso rder F31.9 ; Anemia D64.9 ; Overactive bladder N32.81 ; Chronic headaches R51 ; Degenerative disc disease at L5-S1 level M51.36 and Wellness examination Z00.00 [place] [address] [place] [id number] [address] [place] [address] Feb, [place] [address] [facility] [id number] [address] [place] [address] Oct, IMMUNIZATIONS No Known Immunizations SOCIAL HISTORY Never Assessed REASON FOR VISIT DM ed PLAN OF CARE VITAL SIGNS MEDICATIONS Unknown [...] interstem replaced 05/2016 Hospitalization History [facility]- Headache 12/18/2017
--- OUTSIDE RECORDS SUMMARY | 2019-11-27 06:44 | XMS REPORT ---
Author Author Tish MALCOLM Organization [facility] Address [address] [place] [address] Care Team Providers Care Management Retail Intern Name Role Phone CHARIS MALCOLM Unavailable PROBLEMS Type Condition ICD9-CM Code DHN30-DM Code Onset Dates Condition S tatus SNOMED Code Problem Hypoxemia R09.02 Active 427474111 Problem Other chronic pain G89.29 Active 8 9195125 Problem Morbid obesity due to excess calories E66.01 Active 982551976 Problem Chronic post-traumatic stress disorder (PTSD) F43. 12 Active 810180908 Problem Bipolar I disorder with depression F31.9 Active 99011606 Problem Moderate persistent asthma with exacerbation J45.4 1 Active 620141160 Problem Obesity, morbid E66.01 Active 2381 61423 Problem Unsteady gait R26.81 Active 074149 08 Problem Chronic fatigue R53.82 Active 8422 9001 Problem Overactive bladder N32.81 Active 2 31754795 Problem Chronic headaches R51 Active 43 7076232 Problem Pure hyperglyceridemia E78.1 Active 327146510 Problem Degenerative disc disease at L5-S1 level M51.36 Active 13210245 Problem Uncomplicated asthma, unspecified asthma severity J45.909 Active 498661107 Problem Anemia D64.9 Active 271842607 Problem Anxiety F41.9 Active 50545162 Problem Hypopotassemia E87.6 Active 81310 004 Problem Acquired equinus deformity of left foot M21.6X2 Active 95925486 ALLERGIES No Information ENCOUNTERS Encounter Location Date Diagnosis [facility] [address] [facility] [id number] [place] [id number] Aug, [facility] [address] [facility] [id number] [place] [address] Jul, [facility] [address] [facility] [id number] [place] [phone] Jul, [facility] [address] [facility] [id number] [place] [id number] Jul, [facility] [address] [facility] [id number] [place] [phone] Jun, [facility] [address] [facility] [id number] [place] [address] Jun, Medicare annual wellness vis it, initial Z00.00 [facility] [address] [facility] [id number] [place] [address] Jun, [place] [address] [facility] [id number] [place] [phone] Jun, Bipolar I disorder with depr ession F31.9 and Chronic post-traumatic stress disorder (PTSD) F43.12 [place] [address] [place] [id number] [place] [phone] Jun, Degenerative disc disease at L5-S1 level M51.36 [place] [address] [place] [id number] [address] [place] [id number] Jun, [place] [address] [facility] [id number] [place] [id number] May, [place] [address] [place] [id number] [address] [place] [address] May, [place] [address] [place] [id number] [address] [place] [id number] Apr, [place] [address] [place] [id number] [address] [place] [address] Apr, Unsteady gait R26.81 ; Chron ic fatigue R53.82 ; SOB (shortness of breath) R06.02 and Moderate persistent asthma with exacerbation J45.41 [place] [address] [facility] [id number] [place] [address] Apr, [place] [address] [place] [id number] [address] [place] [phone] 05 [place], 2018 Medicare annual wellness vis it, initial Z00.00 [facility] [address] [facility] [id number] [place] [id number] 10 Mar, 2018 [facility] [address] [facility] [id number] [place] [phone] March, [facility] [address] [facility] [id number] [place] [id number] 11 Feb, 2018 Medicare annual wellness vis it, initial Z00.00 ; Bipolar 1 disorder F31.9 ; Low back pain M54.5 and Other chronic pain G89.29 [facility] [address] [facility] [id number] [place] [phone] Jan, [facility] [address] [facility] [id number] [place] [phone] 22 Dec, 2017 Frequent headaches R51 and D egenerative disc disease at L5-S1 level M51.36 [place] [address] [place] [id number] [place] [address] Nov, [facility] [address] [place] [id number] [place] [address] Nov, Chronic intractable headache , unspecified headache type R51 [facility] [address] [place] [id number] [address] [place] [address] Nov, Chronic headaches R51 and BM I 45.0-49.9, adult Z68.42 [place] [address] [place] [id number] [address] [place] [phone] Nov, [place] [address] [place] [id number] [address] [place] [address] Nov, Obesity, morbid E66.01 ; Unc omplicated asthma, unspecified asthma severity J45.909 ; Anxiety F41.9 ; Pure hyperglyceridemia E78.1 and Family history of diabetes mellitus Z83.3 [place] [address] [place] [id number] [address] [place] [phone] Oct, Bronchitis J40 [facility] [address] [facility] [id number] [place] [id number] Oct, Chronic headaches R51 [facility] [address] [facility] [id number] [place] [phone] Sep, [facility] [address] [facility] [id number] [place] [id number] Sep, Chronic headaches R51 ; Othe r chronic pain G89.29 ; Anemia D64.9 and Obesity, morbid E66.01 [facility] [address] [facility] [id number] [place] [id number] Aug, Acute suppurative otitis med ia of right ear without spontaneous rupture of tympanic membrane, recurrence not specified H66.001 [place] [address] [place] [id number] [address] [place] [address] Aug, Other chronic pain G89.29 [place] [address] [place] [id number] [address] [place] [id number] 18 Jul, 2017 Degenerative disc disease at L5-S1 level M51.36 [place] [address] [place] [id number] [address] [place] [address] 07 Jul, 2017 Other chronic pain G89.29 an d Sprain of deltoid ligament of left ankle, subsequent encounter S93.422D [place] [address] [facility] [id number] [place] [id number] 05 Jul, 2017 Degenerative disc disease at L5-S1 level M51.36 [facility] [address] [facility] [id number] [place] [address] Jun, [facility] [address] [facility] [id number] [place] [phone] Jun, Degenerative disc disease at L5-S1 level M51.36 [facility] [address] [facility] [id number] [place] [phone] Jun, [facility] [address] [place] [id number] [address] [place] [phone] Jun, [facility] [address] [place] [id number] [address] [place] [id number] Jun, [facility] [address] [place] [id number] [place] [address] May, [facility] [address] [place] [id number] [place] [address] May, [facility] [address] [address] May, Rib pain on left side R07.81 [facility] [address] [address] Apr, Morbid obesity due to excess calories E66.01 [place] [address] [address] Apr, Gastroenteritis K52.9 [place] [address] [address] Apr, Degenerative disc disease at L5-S1 level M51.36 [place] [address] [id number] March, Degenerative disc disease at L5-S1 level M51.36 [place] [address] [address] March, Bipolar 1 disorder F31.9 ; A nemia D64.9 ; Hypopotassemia E87.6 ; Uncomplicated asthma, unspecified asthma severity J45.909 ; Anxiety F41.9 ; Chronic headaches R51 and Degenerative disc disease at L5-S1 level M51.36 [place] [address] [address] March, Degenerative disc disease at L5-S1 level M51.36 [facility] [address] [address] March, Degenerative disc disease at L5-S1 level M51.36 [facility] [address] [address] March, Uncomplicated asthma, unspec ified asthma severity J45.909 ; Hypoxemia R09.02 ; Chronic headaches R51 and Degenerative disc disease at L5-S1 level M51.36 [place] [address] [address] March, [place] [address] [address] Feb, Acquired equinus deformity o f left foot M21.6X2 [place] [address] [address] Feb, Degenerative disc disease at L5-S1 level M51.36 [place] [address] [address] Feb, Degenerative disc disease at L5-S1 level M51.36 [place] [address] [address] Jan, Degenerative disc disease at L5-S1 level M51.36 [place] [address] [address] Jan, Degenerative disc disease at L5-S1 level M51.36 [place] [address] [address] Dec, Degenerative disc disease at L5-S1 level M51.36 [place] [address] [address] Dec, Overactive bladder N32.81 an d Degenerative disc disease at L5-S1 level M51.36 [place] [address] [address] Dec, Degenerative disc disease at L5-S1 level M51.36 [place] [address] [address] Dec, Degenerative disc disease at L5-S1 level M51.36 [facility] [address] [id number] [address] [place] [address] Nov, [facility] [address] [id number] [address] [place] [address] Nov, Chronic headaches R51 [facility] [address] [id number] [address] [place] [id number] Nov, Degenerative disc disease at L5-S1 level M51.36 [facility] [address] [id number] [address] [place] [id number] Nov, Left upper quadrant pain R10 .12 [facility] [address] [id number] [address] [place] [phone] Nov, Degenerative disc disease at L5-S1 level M51.36 [facility] [address] [id number] [address] [place] [id number] Nov, Degenerative disc disease at L5-S1 level M51.36 [facility] [address] [id number] [address] [place] [address] Nov, Degenerative disc disease at L5-S1 level M51.36 [facility] [address] [id number] [address] [place] [address] Nov, Degenerative disc disease at L5-S1 level M51.36 [facility] [address] [id number] [address] [place] [id number] Nov, Degenerative disc disease at L5-S1 level M51.36 [facility] [address] [id number] [address] [place] [id number] Oct, Degenerative disc disease at L5-S1 level M51.36 [facility] [address] [id number] [address] [place] [id number] Sep, Degenerative disc disease at L5-S1 level M51.36 [facility] [address] [id number] [address] [place] [address] Sep, Degenerative disc disease at L5-S1 level M51.36 ; Bipolar 1 disorder F31.9 ; Chronic headaches R51 ; Hypopotassemia E87.6 ; Uncomplicated asthma, unspecified asthma severity J45.909 ; Anxiety F41.9 ; Overactive bladder N32.81 and Anemia D64.9 [facility] [address] [id number] [address] [place] [id number] Sep, Degenerative disc disease at L5-S1 level M51.36 [facility] [address] [id number] [address] [place] [phone] Aug, [facility] [address] [id number] [address] [place] [address] Aug, Degenerative disc disease at L5-S1 level M51.36 ; Chronic headaches R51 ; Bipolar 1 disorder F31.9 ; Overactive bladder N32.81 ; Anxiety F41.9 and Anemia D64.9 [facility] [address] [id number] [address] [place] [address] Aug, Degenerative disc disease at L5-S1 level M51.36 [facility] [address] [id number] [address] [place] [id number] 18 Aug, 2016 [facility] [address] [id number] [address] [place] [id number] 14 Aug, 2016 [facility] [address] [id number] [address] [place] [id number] Aug, Degenerative disc disease at L5-S1 level M51.36 [facility] [address] [id number] [address] [place] [id number] 28 Jul, 2016 Degenerative disc disease at L5-S1 level M51.36 [facility] [address] [id number] [address] [place] [address] 27 Jul, 2016 [facility] [address] [id number] [address] [place] [id number] 23 Jul, 2016 [facility] [address] [id number] [address] [place] [phone] Jul, Degenerative disc disease at L5-S1 level M51.36 ; Pure hyperglyceridemia E78.1 ; Bipolar 1 disorder F31.9 ; Anemia D64.9 ; Overactive bladder N32.81 ; Hypopotassemia E87.6 ; Anxiety F41.9 ; Mild intermittent asthma without complication J45.20 and Chronic headaches R51 [facility] [address] [id number] 15 Jul, 2016 [facility] [address] [address] Jul, [facility] [address] [address] Jun, [place] [address] [address] Jun, Bipolar 1 disorder F31.9 ; A nxiety F41.9 ; Overactive bladder N32.81 ; Chronic headaches R51 ; Degenerative disc disease at L5-S1 level M51.36 ; Hypopotassemia E87.6 ; Anemia D64.9 and Morbid obesity due to excess calories E66.01 [place] [address] [address] Jun, [place] [address] [address] May, Overactive bladder N32.81 [place] [address] [place] [id number] [address] [place] [address] May, Bipolar 1 disorder F31.9 ; A nemia D64.9 ; Overactive bladder N32.81 ; Chronic headaches R51 ; Hypopotassemia E87.6 ; Degenerative disc disease at L5-S1 level M51.36 and Uncomplicated asthma, unspecified asthma severity J45.909 [facility] [address] [place] [id number] [address] [place] [address] May, [facility] [address] [address] May, Chronic headaches R51 [place] [address] [address] Apr, Chronic headaches R51 [place] [address] [address] March, Chronic headaches R51 [place] [address] [address] March, [place] [address] [address] Feb, Chronic headaches R51 and De generative disc disease at L5-S1 level M51.36 [place] [address] [address] Feb, Hypopotassemia E87.6 ; Anemi a D64.9 ; Overactive bladder N32.81 ; Chronic headaches R51 and Degenerative disc disease at L5-S1 level M51.36 [place] [address] [address] Feb, Bipolar 1 disorder F31.9 ; A nemia D64.9 and Overactive bladder N32.81 [place] [address] [address] Feb, Scabies B86 ; Bipolar 1 diso rder F31.9 ; Anemia D64.9 ; Overactive bladder N32.81 ; Chronic headaches R51 ; Degenerative disc disease at L5-S1 level M51.36 and Wellness examination Z00.00 [place] [address] [address] Feb, [place] [address] [address] Oct, IMMUNIZATIONS No Known Immunizations SOCIAL HISTORY Never Assessed REASON FOR VISIT Controlled Med Refill PLAN OF CARE VITAL SIGNS MEDICATIONS Medication Instructions Dosage Frequency Start Date End Date Duration S tatus Hydrocodone-Ibuprofen 7.5-200 MG Orally every 6 hrs 1 tablet as nee ded 6h 07 Apr, 2018 28 days Active RESULTS No Results PROCEDURES [...] interstem replaced 05/2016 Hospitalization History [facility] [place]- Headache 12/18/2017
--- OUTSIDE RECORDS SUMMARY | 2019-11-27 06:45 | XMS REPORT ---
Author Author Tish MALCOLM Organization [facility] Address [address] [place] [address] Care Team Providers Care Rotary Driller Prospecting Name Role Phone CHARIS MALCOLM Unavailable PROBLEMS Type Condition ICD9-CM Code [id number] Code Onset Dates Condition S tatus SNOMED Code Problem Hypopotassemia E87.6 Active 34024 004 Problem Uncomplicated asthma, unspecified asthma severity J45.909 Active 420937010 Problem Degenerative disc disease at L5-S1 level M51.36 Active 14903859 Problem Obesity, morbid E66.01 Active 2381 40360 Problem Other chronic pain G89.29 Active 8 6474988 Problem Acquired equinus deformity of left foot M21.6X2 Active 21928977 Problem Anxiety F41.9 Active 15703429 Problem Morbid obesity due to excess calories E66.01 Active 707267292 Problem Hypoxemia R09.02 Active 763260690 Problem Overactive bladder N32.81 Active 2 79666541 Problem Bipolar 1 disorder F31.9 Active 3 68337683 Problem Chronic headaches R51 Active 43 5821089 Problem Pure hyperglyceridemia E78.1 Active 623089277 Problem Anemia D64.9 Active 072590709 ALLERGIES Substance Reaction Event Type Date Status Sulfamethoxazole-Trimethoprim Unknown Drug Allergy Sep, 7 Active Penicillin V Potassium Unknown Drug Allergy [...] Sep, Active ENCOUNTERS Encounter Location Date Diagnosis [facility] [address] [facility] [id number] [address] [place] [id number] 18 Apr, 2018 [facility] [address] [facility] [id number] [address] [place] [address] Apr, [facility] [address] [place] [id number] [address] [place] [address] March, [facility] [address] [address] March, [facility] [address] [address] Feb, Medicare annual wellness vis it, initial Z00.00 ; Bipolar 1 disorder F31.9 ; Low back pain M54.5 and Other chronic pain G89.29 [place] [address] [address] Jan, [place] [address] [address] Dec, Frequent headaches R51 and D egenerative disc disease at L5-S1 level M51.36 [place] [address] [address] Nov, [facility] [address] [address] Nov, Chronic intractable headache , unspecified headache type R51 [facility] [address] [address] Nov, Chronic headaches R51 and BM I 45.0-49.9, adult Z68.42 [place] [address] [place] [id number] [address] [place] [address] Nov, [place] [address] [address] Nov, Obesity, morbid E66.01 ; Unc omplicated asthma, unspecified asthma severity J45.909 ; Anxiety F41.9 ; Pure hyperglyceridemia E78.1 and Family history of diabetes mellitus Z83.3 [place] [address] [address] Oct, Bronchitis J40 [facility] [address] [facility] [id number] [address] [place] [address] Oct, Chronic headaches R51 [facility] [address] [facility] [id number] [address] [place] [address] Sep, [facility] [address] [facility] [id number] [address] [place] [address] Sep, Chronic headaches R51 ; Othe r chronic pain G89.29 ; Anemia D64.9 and Obesity, morbid E66.01 [facility] [address] [facility] [id number] [address] [place] [address] Aug, Acute suppurative otitis med ia of right ear without spontaneous rupture of tympanic membrane, recurrence not specified H66.001 [place] [address] [place] [id number] [address] [place] [address] Aug, Other chronic pain G89.29 [place] [address] [place] [id number] [address] [place] [id number] 18 Jul, 2017 Degenerative disc disease at L5-S1 level M51.36 [place] [address] [place] [id number] [address] [place] [address] 07 Jul, 2017 Other chronic pain G89.29 an d Sprain of deltoid ligament of left ankle, subsequent encounter S93.422D [place] [address] [facility] [id number] [address] [place] [address] 05 Jul, 2017 Degenerative disc disease at L5-S1 level M51.36 [facility] [address] [facility] [id number] [address] [place] [address] Jun, [facility] [address] [facility] [id number] [address] [place] [address] Jun, Degenerative disc disease at L5-S1 level M51.36 [facility] [address] [facility] [id number] [address] [place] [address] Jun, [facility] [address] [place] [id number] [address] [place] [phone] Jun, [facility] [address] [place] [id number] [address] [place] [phone] Jun, [facility] [address] [place] [id number] [place] [phone] May, [facility] [address] [place] [id number] [place] [address] May, [facility] [address] [address] May, Rib pain on left side R07.81 [facility] [address] [address] Apr, Morbid obesity due to excess calories E66.01 [place] [address] [address] Apr, Gastroenteritis K52.9 [place] [address] [address] Apr, Degenerative disc disease at L5-S1 level M51.36 [place] [address] [address] March, Degenerative disc disease at L5-S1 level M51.36 [place] [address] [address] March, Bipolar 1 disorder F31.9 ; A nemia D64.9 ; Hypopotassemia E87.6 ; Uncomplicated asthma, unspecified asthma severity J45.909 ; Anxiety F41.9 ; Chronic headaches R51 and Degenerative disc disease at L5-S1 level M51.36 [place] [address] [address] March, Degenerative disc disease at L5-S1 level M51.36 [facility] [address] [address] March, Degenerative disc disease at L5-S1 level M51.36 [facility] [address] [address] March, Uncomplicated asthma, unspec ified asthma severity J45.909 ; Hypoxemia R09.02 ; Chronic headaches R51 and Degenerative disc disease at L5-S1 level M51.36 [place] [address] [address] March, [place] [address] [address] Feb, Acquired equinus deformity o f left foot M21.6X2 [place] [address] [address] Feb, Degenerative disc disease at L5-S1 level M51.36 [place] [address] [address] Feb, Degenerative disc disease at L5-S1 level M51.36 [place] [address] [address] Jan, Degenerative disc disease at L5-S1 level M51.36 [place] [address] [address] Jan, Degenerative disc disease at L5-S1 level M51.36 [place] [address] [address] Dec, Degenerative disc disease at L5-S1 level M51.36 [place] [address] [address] Dec, Overactive bladder N32.81 an d Degenerative disc disease at L5-S1 level M51.36 [place] [address] [address] Dec, Degenerative disc disease at L5-S1 level M51.36 [place] [address] [address] Dec, Degenerative disc disease at L5-S1 level M51.36 [facility] [address] [id number] [address] [place] [address] Nov, [facility] [address] [id number] [address] [place] [address] Nov, Chronic headaches R51 [facility] [address] [id number] [address] [place] [address] Nov, Degenerative disc disease at L5-S1 level M51.36 [facility] [address] [id number] [address] [place] [address] Nov, Left upper quadrant pain R10 .12 [facility] [address] [id number] [address] [place] [address] Nov, Degenerative disc disease at L5-S1 level M51.36 [facility] [address] [id number] [address] [place] [address] Nov, Degenerative disc disease at L5-S1 level M51.36 [facility] [address] [id number] [address] [place] [address] Nov, Degenerative disc disease at L5-S1 level M51.36 [facility] [address] [id number] [address] [place] [address] Nov, Degenerative disc disease at L5-S1 level M51.36 [facility] [address] [id number] [address] [place] [address] Nov, Degenerative disc disease at L5-S1 level M51.36 [facility] [address] [id number] [address] [place] [address] Oct, Degenerative disc disease at L5-S1 level M51.36 [facility] [address] [id number] [address] [place] [address] Sep, Degenerative disc disease at L5-S1 level M51.36 [facility] [address] [id number] [address] [place] [address] Sep, Degenerative disc disease at L5-S1 level M51.36 ; Bipolar 1 disorder F31.9 ; Chronic headaches R51 ; Hypopotassemia E87.6 ; Uncomplicated asthma, unspecified asthma severity J45.909 ; Anxiety F41.9 ; Overactive bladder N32.81 and Anemia D64.9 [facility] [address] [id number] [address] [place] [address] Sep, Degenerative disc disease at L5-S1 level M51.36 [facility] [address] [id number] [address] [place] [id number] Aug, [facility] [address] [id number] [address] [place] [address] Aug, Degenerative disc disease at L5-S1 level M51.36 ; Chronic headaches R51 ; Bipolar 1 disorder F31.9 ; Overactive bladder N32.81 ; Anxiety F41.9 and Anemia D64.9 [facility] [address] [id number] [address] [place] [address] Aug, Degenerative disc disease at L5-S1 level M51.36 [facility] [address] [id number] [address] [place] [id number] 18 Aug, 2016 [facility] [address] [id number] [address] [place] [address] 14 Aug, 2016 [facility] [address] [id number] [address] [place] [id number] Aug, Degenerative disc disease at L5-S1 level M51.36 [facility] [address] [id number] [address] [place] [id number] 28 Jul, 2016 Degenerative disc disease at L5-S1 level M51.36 [facility] [address] [id number] [address] [place] [id number] 27 Jul, 2016 [facility] [address] [id number] [address] [place] [id number] 23 Jul, 2016 [facility] [address] [id number] [address] [place] [address] Jul, Degenerative disc disease at L5-S1 level M51.36 ; Pure hyperglyceridemia E78.1 ; Bipolar 1 disorder F31.9 ; Anemia D64.9 ; Overactive bladder N32.81 ; Hypopotassemia E87.6 ; Anxiety F41.9 ; Mild intermittent asthma without complication J45.20 and Chronic headaches R51 [facility] [address] [address] 15 Jul, 2016 [facility] [address] [address] Jul, [facility] [address] [address] Jun, [place] [address] [address] Jun, Bipolar 1 disorder F31.9 ; A nxiety F41.9 ; Overactive bladder N32.81 ; Chronic headaches R51 ; Degenerative disc disease at L5-S1 level M51.36 ; Hypopotassemia E87.6 ; Anemia D64.9 and Morbid obesity due to excess calories E66.01 [place] [address] [address] Jun, [place] [address] [address] May, Overactive bladder N32.81 [place] [address] [place] [id number] [address] [place] [address] May, Bipolar 1 disorder F31.9 ; A nemia D64.9 ; Overactive bladder N32.81 ; Chronic headaches R51 ; Hypopotassemia E87.6 ; Degenerative disc disease at L5-S1 level M51.36 and Uncomplicated asthma, unspecified asthma severity J45.909 [facility] [address] [place] [id number] [address] [place] [id number] May, [facility] [address] [address] May, Chronic headaches R51 [place] [address] [address] Apr, Chronic headaches R51 [place] [address] [address] March, Chronic headaches R51 [place] [address] [address] March, [place] [address] [address] Feb, Chronic headaches R51 and De generative disc disease at L5-S1 level M51.36 [place] [address] [address] Feb, Hypopotassemia E87.6 ; Anemi a D64.9 ; Overactive bladder N32.81 ; Chronic headaches R51 and Degenerative disc disease at L5-S1 level M51.36 [place] [address] [address] Feb, Bipolar 1 disorder F31.9 ; A nemia D64.9 and Overactive bladder N32.81 [place] [address] [place] [id number] [address] [place] [address] Feb, Scabies B86 ; Bipolar 1 diso rder F31.9 ; Anemia D64.9 ; Overactive bladder N32.81 ; Chronic headaches R51 ; Degenerative disc disease at L5-S1 level M51.36 and Wellness examination Z00.00 [place] [address] [place] [id number] [address] [place] [address] Feb, [place] [address] [address] Oct, IMMUNIZATIONS No Known Immunizations SOCIAL HISTORY Never Assessed REASON FOR VISIT Establish [facility] PLAN OF CARE Activity Details Follow Up 4 Weeks Reason:obesity VITAL SIGNS Height 65.0 in 2017-10-12 Weight 280.0 lbs 2017-10-12 Temperature 98.1 degrees Fahrenheit 2017-10-12 Heart Rate 78 bpm 2017-10-12 Respiratory Rate 20 2017-10-12 BMI 46.59 kg/m2 2017-10-12 Blood pressure systolic 108 mmHg 2017-10-12 Blood pressure diastolic 72 mmHg 2017-10-12 MEDICATIONS Medication Instructions Dosage Frequency Start Date End Date Duration S tatus Seroquel 200 mg Orally Once a day 1 tablet at bedtime 24h Active Effexor XR 150 MG Orally Once a day 1 capsule with food 24h Active Klor-Con M20 20MEQ 1 tablet 12h Acti ve Topamax 200 mg Orally Twice a day 1 tablet 12h Feb, 30 days Active Ferrous Sulfate 325 (65 Fe) mg Orally 2 times a day 1 tablet 12h Active Albuterol Sulfate HFA 108 (90 Base) MCG/ACT Inhalation every 4 hrs 2 puffs as needed 4h May, Active Neurontin 600 MG Orally Three times a day 1 tablet 8h Active Phentermine HCl 15 mg Orally Once a day 1 capsule 24h Sep, Active Hydrocodone-Ibuprofen 7.5-200 MG Orally every 6 hrs 1 tablet as nee ded 6h Sep, 28 days Active RESULTS No Results PROCEDURES Procedure Date Ordered Result Body Site [facility] VISIT ESTABLISHED PATIENT Oct 12, 2017 INSTRUCTIONS MEDICATIONS ADMINISTERED No Known Medications MEDICAL [...] interstem replaced 05/2016 Hospitalization History [facility]- Headache 12/18/2017
--- OUTSIDE RECORDS SUMMARY | 2019-11-27 06:45 | XMS REPORT ---
Author Author Tish NIEVES Organization [facility] Address [address] [place] [address] Care Team Providers Care Chief Psychologist Name Role Phone EZEQUIEL NIELS Unavailable PROBLEMS Type Condition ICD9-CM Code [id number] Code Onset Dates Condition S tatus SNOMED Code Problem Hypopotassemia E87.6 Active 27008 004 Problem Uncomplicated asthma, unspecified asthma severity J45.909 Active 685633192 Problem Degenerative disc disease at L5-S1 level M51.36 Active 27777971 Problem Obesity, morbid E66.01 Active 2381 15284 Problem Other chronic pain G89.29 Active 8 4951346 Problem Acquired equinus deformity of left foot M21.6X2 Active 01760004 Problem Anxiety F41.9 Active 33660997 Problem Morbid obesity due to excess calories E66.01 Active 412897998 Problem Hypoxemia R09.02 Active 871289098 Problem Overactive bladder N32.81 Active 2 58526678 Problem Bipolar 1 disorder F31.9 Active 3 29176773 Problem Chronic headaches R51 Active 43 8737550 Problem Pure hyperglyceridemia E78.1 Active 299556003 Problem Anemia D64.9 Active [id number] ALLERGIES No Information ENCOUNTERS Encounter Location Date Diagnosis [facility] [address] [facility] [id number] [address] [place] [phone] March, [facility] [address] [facility] [id number] [address] [place] [phone] March, [facility] [address] [facility] [id number] [address] [place] [phone] 11 Feb, 2018 Medicare annual wellness vis it, initial Z00.00 ; Bipolar 1 disorder F31.9 ; Low back pain M54.5 and Other chronic pain G89.29 [facility] [address] [facility] [id number] [address] [place] [phone] Jan, [place] [address] [address] Dec, Frequent headaches R51 and D egenerative disc disease at L5-S1 level M51.36 [place] [address] [address] Nov, [facility] [address] [address] Nov, Chronic intractable headache , unspecified headache type R51 [facility] [place] [address] [address] Nov, Chronic headaches R51 and BM I 45.0-49.9, adult Z68.42 [place] [address] [address] Nov, [place] [address] [address] Nov, Obesity, morbid E66.01 ; Unc omplicated asthma, unspecified asthma severity J45.909 ; Anxiety F41.9 ; Pure hyperglyceridemia E78.1 and Family history of diabetes mellitus Z83.3 [place] [address] [address] Oct, Bronchitis J40 [place] [address] [address] Oct, Chronic headaches R51 [place] [address] [address] Sep, [place] [address] [address] Sep, Chronic headaches R51 ; Othe r chronic pain G89.29 ; Anemia D64.9 and Obesity, morbid E66.01 [place] [address] [address] Aug, Acute suppurative otitis med ia of right ear without spontaneous rupture of tympanic membrane, recurrence not specified H66.001 [facility] [address] [id number] [address] [place] [phone] Aug, Other chronic pain G89.29 [facility] [address] [id number] [address] [place] [id number] 18 Jul, 2017 Degenerative disc disease at L5-S1 level M51.36 [facility] [address] [id number] [address] [place] [id number] 07 Jul, 2017 Other chronic pain G89.29 an d Sprain of deltoid ligament of left ankle, subsequent encounter S93.422D [facility] [address] [id number] [address] [place] [id number] 05 Jul, 2017 Degenerative disc disease at L5-S1 level M51.36 [facility] [address] [id number] [address] [place] [id number] Jun, [facility] [address] [id number] [address] [place] [phone] Jun, Degenerative disc disease at L5-S1 level M51.36 [facility] [address] [id number] [address] [place] [phone] Jun, [facility] [address] [id number] [address] [place] [phone] Jun, [facility] [address] [id number] [address] [place] [phone] Jun, [facility] [address] [id number] [address] [place] [phone] May, [facility] [address] [id number] [address] [place] [id number] May, [facility] [address] [id number] [address] [place] [phone] May, Rib pain on left side R07.81 [facility] [address] [id number] [address] [place] [phone] Apr, Morbid obesity due to excess calories E66.01 [place] [address] [place] [id number] [address] [place] [address] Apr, Gastroenteritis K52.9 [place] [address] [address] Apr, Degenerative disc disease at L5-S1 level M51.36 [place] [address] [address] March, Degenerative disc disease at L5-S1 level M51.36 [place] [address] [address] March, Bipolar 1 disorder F31.9 ; A nemia D64.9 ; Hypopotassemia E87.6 ; Uncomplicated asthma, unspecified asthma severity J45.909 ; Anxiety F41.9 ; Chronic headaches R51 and Degenerative disc disease at L5-S1 level M51.36 [place] [address] [address] March, Degenerative disc disease at L5-S1 level M51.36 [place] [address] [address] March, Degenerative disc disease at L5-S1 level M51.36 [place] [address] [address] March, Uncomplicated asthma, unspec ified asthma severity J45.909 ; Hypoxemia R09.02 ; Chronic headaches R51 and Degenerative disc disease at L5-S1 level M51.36 [place] [address] [place] [id number] [address] [place] [address] March, [place] [address] [address] Feb, Acquired equinus deformity o f left foot M21.6X2 [place] [address] [address] Feb, Degenerative disc disease at L5-S1 level M51.36 [facility] [address] [facility] [id number] [address] [place] [phone] Feb, Degenerative disc disease at L5-S1 level M51.36 [facility] [address] [facility] [id number] [address] [place] [phone] Jan, Degenerative disc disease at L5-S1 level M51.36 [facility] [address] [id number] [address] [place] [id number] Jan, Degenerative disc disease at L5-S1 level M51.36 [facility] [address] [facility] [id number] [address] [place] [address] Dec, Degenerative disc disease at L5-S1 level M51.36 [facility] [address] [place] [id number] [address] [place] [id number] Dec, Overactive bladder N32.81 an d Degenerative disc disease at L5-S1 level M51.36 [facility] [address] [id number] [address] [place] [id number] Dec, Degenerative disc disease at L5-S1 level M51.36 [facility] [address] [place] [id number] [address] [place] [id number] Dec, Degenerative disc disease at L5-S1 level M51.36 [facility] [address] [place] [id number] [address] [place] [id number] Nov, [facility] [address] [facility] [id number] [address] [place] [phone] Nov, Chronic headaches R51 [facility] [address] [facility] [id number] [address] [place] [phone] Nov, Degenerative disc disease at L5-S1 level M51.36 [facility] [address] [facility] [id number] [address] [place] [phone] Nov, Left upper quadrant pain R10 .12 [facility] [id number] [place] [address] Nov, Degenerative disc disease at L5-S1 level M51.36 [facility] [address] [address] Nov, Degenerative disc disease at L5-S1 level M51.36 [facility] [address] [place] [id number] [place] [address] Nov, Degenerative disc disease at L5-S1 level M51.36 [facility] [address] [place] [id number] [place] [address] Nov, Degenerative disc disease at L5-S1 level M51.36 [place] [address] [place] [id number] [place] [address] Nov, Degenerative disc disease at L5-S1 level M51.36 [place] [address] [address] Oct, Degenerative disc disease at L5-S1 level M51.36 [place] [address] [address] Sep, Degenerative disc disease at L5-S1 level M51.36 [place] [address] [address] Sep, Degenerative disc disease at L5-S1 level M51.36 ; Bipolar 1 disorder F31.9 ; Chronic headaches R51 ; Hypopotassemia E87.6 ; Uncomplicated asthma, unspecified asthma severity J45.909 ; Anxiety F41.9 ; Overactive bladder N32.81 and Anemia D64.9 [place] [address] [address] Sep, Degenerative disc disease at L5-S1 level M51.36 [facility] [address] [place] [id number] [address] [place] [phone] Aug, [facility] [address] [address] Aug, Degenerative disc disease at L5-S1 level M51.36 ; Chronic headaches R51 ; Bipolar 1 disorder F31.9 ; Overactive bladder N32.81 ; Anxiety F41.9 and Anemia D64.9 [facility] [address] [id number] [address] [place] [id number] 24 Aug, 2016 Degenerative disc disease at L5-S1 level M51.36 [facility] [address] [facility] [id number] [address] [place] [id number] 18 Aug, 2016 [facility] [address] [facility] [id number] [address] [place] [phone] 14 Aug, 2016 [facility] [address] [facility] [id number] [address] [place] [id number] 10 Aug, 2016 Degenerative disc disease at L5-S1 level M51.36 [facility] [address] [facility] [id number] [address] [place] [phone] 28 Jul, 2016 Degenerative disc disease at L5-S1 level M51.36 [facility] [address] [facility] [id number] [address] [place] [phone] 27 Jul, 2016 [facility] [address] [facility] [id number] [place] [phone] 23 Jul, 2016 [facility] [address] [facility] [id number] [place] [phone] 22 Jul, 2016 Degenerative disc disease at L5-S1 level M51.36 ; Pure hyperglyceridemia E78.1 ; Bipolar 1 disorder F31.9 ; Anemia D64.9 ; Overactive bladder N32.81 ; Hypopotassemia E87.6 ; Anxiety F41.9 ; Mild intermittent asthma without complication J45.20 and Chronic headaches R51 [facility] [address] [facility] [id number] [address] [place] [phone] 15 Jul, 2016 [facility] [address] [facility] [id number] [address] [place] [id number] 07 Jul, 2016 [facility] [address] [facility] [id number] [address] [place] [phone] Jun, [facility] [address] [facility] [id number] [address] [place] [id number] Jun, Bipolar 1 disorder F31.9 ; A nxiety F41.9 ; Overactive bladder N32.81 ; Chronic headaches R51 ; Degenerative disc disease at L5-S1 level M51.36 ; Hypopotassemia E87.6 ; Anemia D64.9 and Morbid obesity due to excess calories E66.01 [facility] [address] [facility] [id number] [address] [place] [phone] Jun, [facility] [address] [facility] [id number] [address] [place] [phone] May, Overactive bladder N32.81 [facility] [address] [facility] [id number] [address] [place] [id number] May, Bipolar 1 disorder F31.9 ; A nemia D64.9 ; Overactive bladder N32.81 ; Chronic headaches R51 ; Hypopotassemia E87.6 ; Degenerative disc disease at L5-S1 level M51.36 and Uncomplicated asthma, unspecified asthma severity J45.909 [facility] [address] [place] [id number] [address] [place] [id number] May, [facility] [address] [facility] [id number] [address] [place] [phone] May, Chronic headaches R51 [facility] [address] [facility] [id number] [address] [place] [phone] Apr, Chronic headaches R51 [facility] [address] [facility] [id number] [address] [place] [phone] March, Chronic headaches R51 [facility] [address] [facility] [id number] [address] [place] [phone] March, [facility] [address] [facility] [id number] [address] [place] [phone] Feb, Chronic headaches R51 and De generative disc disease at L5-S1 level M51.36 [place] [address] [facility] [id number] [address] [place] [phone] 19 Feb, 2016 Hypopotassemia E87.6 ; Anemi a D64.9 ; Overactive bladder N32.81 ; Chronic headaches R51 and Degenerative disc disease at L5-S1 level M51.36 [place] [address] [place] [id number] [address] [place] [id number] 07 Feb, 2016 Bipolar 1 disorder F31.9 ; A nemia D64.9 and Overactive bladder N32.81 [place] [address] [place] [id number] [address] [place] [address] 06 Feb, 2016 Scabies B86 ; Bipolar 1 diso rder F31.9 ; Anemia D64.9 ; Overactive bladder N32.81 ; Chronic headaches R51 ; Degenerative disc disease at L5-S1 level M51.36 and Wellness examination Z00.00 [place] [id number] [place] [phone] Feb, [place] [address] [place] [id number] [address] [place] [phone] Oct, IMMUNIZATIONS No Known Immunizations SOCIAL HISTORY Never Assessed REASON FOR VISIT PT follow-up PLAN OF CARE Activity Details Follow Up prn Reason:F/U PT VITAL SIGNS MEDICATIONS Unknown Medications RESULTS No Results PROCEDURES Procedure Date Ordered Result Body Site THERAPEUTIC EXERCISES Aug 13, 2017 INSTRUCTIONS MEDICATIONS ADMINISTERED No Known Medications [...] interstem replaced 05/2016 Hospitalization History [facility]- Headache 12/18/2017
--- OUTSIDE RECORDS SUMMARY | 2019-11-27 06:45 | XMS REPORT ---
Author Author Tish NIEVES Organization [facility] Address [address] [place] [address] Care Team Providers Care Animal Shelter Manager Name Role Phone EZEQUIEL NIELS Unavailable PROBLEMS Type Condition ICD9-CM Code [id number] Code Onset Dates Condition S tatus SNOMED Code Problem Hypopotassemia E87.6 Active 26408 004 Problem Uncomplicated asthma, unspecified asthma severity J45.909 Active 539013435 Problem Degenerative disc disease at L5-S1 level M51.36 Active 01295664 Problem Obesity, morbid E66.01 Active 2381 99693 Problem Other chronic pain G89.29 Active 8 3741656 Problem Acquired equinus deformity of left foot M21.6X2 Active 20991124 Problem Anxiety F41.9 Active 39875679 Problem Morbid obesity due to excess calories E66.01 Active 578924732 Problem Hypoxemia R09.02 Active 518960180 Problem Overactive bladder N32.81 Active 2 88769562 Problem Bipolar 1 disorder F31.9 Active 3 60680531 Problem Chronic headaches R51 Active 43 7053946 Problem Pure hyperglyceridemia E78.1 Active 300471778 Problem Anemia D64.9 Active [id number] ALLERGIES No Information ENCOUNTERS Encounter Location Date Diagnosis [facility] [address] [facility] [id number] [address] [place] [id number] March, [facility] [address] [facility] [id number] [address] [place] [id number] March, [facility] [address] [facility] [id number] [address] [place] [id number] 11 Feb, 2018 Medicare annual wellness vis it, initial Z00.00 ; Bipolar 1 disorder F31.9 ; Low back pain M54.5 and Other chronic pain G89.29 [facility] [address] [facility] [id number] [address] [place] [phone] Jan, [place] [address] [address] Dec, Frequent headaches R51 and D egenerative disc disease at L5-S1 level M51.36 [place] [address] [address] Nov, [facility] [address] [address] Nov, Chronic intractable headache , unspecified headache type R51 [facility] [place] [address] [address] Nov, Chronic headaches R51 and BM I 45.0-49.9, adult Z68.42 [place] [address] [address] Nov, [place] [address] [address] Nov, Obesity, morbid E66.01 ; Unc omplicated asthma, unspecified asthma severity J45.909 ; Anxiety F41.9 ; Pure hyperglyceridemia E78.1 and Family history of diabetes mellitus Z83.3 [place] [address] [id number] Oct, Bronchitis J40 [place] [address] [address] Oct, Chronic headaches R51 [place] [address] [address] Sep, [place] [address] [address] Sep, Chronic headaches R51 ; Othe r chronic pain G89.29 ; Anemia D64.9 and Obesity, morbid E66.01 [place] [address] [address] Aug, Acute suppurative otitis med ia of right ear without spontaneous rupture of tympanic membrane, recurrence not specified H66.001 [facility] [address] [id number] [address] [place] [id number] Aug, Other chronic pain G89.29 [facility] [address] [id number] [address] [place] [id number] 18 Jul, 2017 Degenerative disc disease at L5-S1 level M51.36 [facility] [address] [id number] [address] [place] [id number] 07 Jul, 2017 Other chronic pain G89.29 an d Sprain of deltoid ligament of left ankle, subsequent encounter S93.422D [facility] [address] [id number] [address] [place] [id number] 05 Jul, 2017 Degenerative disc disease at L5-S1 level M51.36 [facility] [address] [id number] [address] [place] [id number] Jun, [facility] [address] [id number] [address] [place] [id number] Jun, Degenerative disc disease at L5-S1 level M51.36 [facility] [address] [id number] [address] [place] [phone] Jun, [facility] [address] [id number] [address] [place] [phone] Jun, [facility] [address] [id number] [address] [place] [id number] Jun, [facility] [address] [id number] [address] [place] [phone] May, [facility] [address] [id number] [address] [place] [id number] May, [facility] [address] [id number] [address] [place] [id number] May, Rib pain on left side R07.81 [facility] [address] [id number] [address] [place] [id number] Apr, Morbid obesity due to excess calories E66.01 [place] [address] [place] [id number] [address] [place] [phone] Apr, Gastroenteritis K52.9 [place] [address] [address] Apr, Degenerative disc disease at L5-S1 level M51.36 [place] [address] [address] March, Degenerative disc disease at L5-S1 level M51.36 [place] [address] [address] March, Bipolar 1 disorder F31.9 ; A nemia D64.9 ; Hypopotassemia E87.6 ; Uncomplicated asthma, unspecified asthma severity J45.909 ; Anxiety F41.9 ; Chronic headaches R51 and Degenerative disc disease at L5-S1 level M51.36 [place] [address] [address] March, Degenerative disc disease at L5-S1 level M51.36 [place] [address] [address] March, Degenerative disc disease at L5-S1 level M51.36 [place] [address] [address] March, Uncomplicated asthma, unspec ified asthma severity J45.909 ; Hypoxemia R09.02 ; Chronic headaches R51 and Degenerative disc disease at L5-S1 level M51.36 [place] [address] [address] [place] [id number] [address] [place] [address] March, [place] [address] [address] Feb, Acquired equinus deformity o f left foot M21.6X2 [place] [address] [address] Feb, Degenerative disc disease at L5-S1 level M51.36 [facility] [address] [facility] [id number] [address] [place] [id number] Feb, Degenerative disc disease at L5-S1 level M51.36 [facility] [address] [facility] [id number] [address] [place] [phone] Jan, Degenerative disc disease at L5-S1 level M51.36 [facility] [address] [id number] [address] [place] [id number] Jan, Degenerative disc disease at L5-S1 level M51.36 [facility] [address] [facility] [id number] [address] [place] [phone] Dec, Degenerative disc disease at L5-S1 level M51.36 [facility] [address] [place] [id number] [address] [place] [id number] Dec, Overactive bladder N32.81 an d Degenerative disc disease at L5-S1 level M51.36 [facility] [address] [id number] [address] [place] [id number] Dec, Degenerative disc disease at L5-S1 level M51.36 [facility] [address] [place] [id number] [address] [place] [id number] Dec, Degenerative disc disease at L5-S1 level M51.36 [facility] [address] [place] [id number] [address] [place] [id number] Nov, [facility] [address] [facility] [id number] [address] [place] [id number] Nov, Chronic headaches R51 [facility] [address] [facility] [id number] [address] [place] [phone] Nov, Degenerative disc disease at L5-S1 level M51.36 [facility] [address] [facility] [id number] [address] [place] [id number] Nov, Left upper quadrant pain R10 .12 [facility] [id number] [place] [id number] Nov, Degenerative disc disease at L5-S1 level M51.36 [facility] [address] [address] Nov, Degenerative disc disease at L5-S1 level M51.36 [facility] [address] [place] [id number] [place] [phone] Nov, Degenerative disc disease at L5-S1 level M51.36 [facility] [address] [place] [id number] [place] [phone] Nov, Degenerative disc disease at L5-S1 level M51.36 [place] [address] [place] [id number] [place] [phone] Nov, Degenerative disc disease at L5-S1 level M51.36 [place] [address] [address] Oct, Degenerative disc disease at L5-S1 level M51.36 [place] [address] [address] Sep, Degenerative disc disease at L5-S1 level M51.36 [place] [address] [address] Sep, Degenerative disc disease at L5-S1 level M51.36 ; Bipolar 1 disorder F31.9 ; Chronic headaches R51 ; Hypopotassemia E87.6 ; Uncomplicated asthma, unspecified asthma severity J45.909 ; Anxiety F41.9 ; Overactive bladder N32.81 and Anemia D64.9 [place] [address] [address] Sep, Degenerative disc disease at L5-S1 level M51.36 [facility] [address] [place] [id number] [address] [place] [phone] Aug, [facility] [address] [address] Aug, Degenerative disc disease at L5-S1 level M51.36 ; Chronic headaches R51 ; Bipolar 1 disorder F31.9 ; Overactive bladder N32.81 ; Anxiety F41.9 and Anemia D64.9 [facility] [address] [id number] [address] [place] [id number] 24 Aug, 2016 Degenerative disc disease at L5-S1 level M51.36 [facility] [address] [facility] [id number] [address] [place] [id number] 18 Aug, 2016 [facility] [address] [facility] [id number] [address] [place] [id number] 14 Aug, 2016 [facility] [address] [facility] [id number] [address] [place] [id number] 10 Aug, 2016 Degenerative disc disease at L5-S1 level M51.36 [facility] [address] [facility] [id number] [address] [place] [id number] 28 Jul, 2016 Degenerative disc disease at L5-S1 level M51.36 [facility] [address] [facility] [id number] [address] [place] [id number] 27 Jul, 2016 [facility] [address] [facility] [id number] [place] [phone] 23 Jul, 2016 [facility] [address] [facility] [id number] [place] [phone] 22 Jul, 2016 Degenerative disc disease at L5-S1 level M51.36 ; Pure hyperglyceridemia E78.1 ; Bipolar 1 disorder F31.9 ; Anemia D64.9 ; Overactive bladder N32.81 ; Hypopotassemia E87.6 ; Anxiety F41.9 ; Mild intermittent asthma without complication J45.20 and Chronic headaches R51 [facility] [address] [facility] [id number] [address] [place] [id number] 15 Jul, 2016 [facility] [address] [facility] [id number] [address] [place] [phone] 07 Jul, 2016 [facility] [address] [facility] [id number] [address] [place] [id number] Jun, [facility] [address] [facility] [id number] [address] [place] [phone] Jun, Bipolar 1 disorder F31.9 ; A nxiety F41.9 ; Overactive bladder N32.81 ; Chronic headaches R51 ; Degenerative disc disease at L5-S1 level M51.36 ; Hypopotassemia E87.6 ; Anemia D64.9 and Morbid obesity due to excess calories E66.01 [facility] [address] [facility] [id number] [address] [place] [phone] Jun, [facility] [address] [facility] [id number] [address] [place] [id number] May, Overactive bladder N32.81 [facility] [address] [facility] [id number] [address] [place] [id number] May, Bipolar 1 disorder F31.9 ; A nemia D64.9 ; Overactive bladder N32.81 ; Chronic headaches R51 ; Hypopotassemia E87.6 ; Degenerative disc disease at L5-S1 level M51.36 and Uncomplicated asthma, unspecified asthma severity J45.909 [facility] [address] [place] [id number] [address] [place] [id number] May, [facility] [address] [facility] [id number] [address] [place] [id number] May, Chronic headaches R51 [facility] [address] [facility] [id number] [address] [place] [id number] Apr, Chronic headaches R51 [facility] [address] [facility] [id number] [address] [place] [id number] March, Chronic headaches R51 [facility] [address] [facility] [id number] [address] [place] [id number] March, [facility] [address] [facility] [id number] [address] [place] [phone] Feb, Chronic headaches R51 and De generative disc disease at L5-S1 level M51.36 [place] [address] [facility] [id number] [address] [place] [phone] 19 Feb, 2016 Hypopotassemia E87.6 ; Anemi a D64.9 ; Overactive bladder N32.81 ; Chronic headaches R51 and Degenerative disc disease at L5-S1 level M51.36 [place] [address] [address] [place] [id number] [address] [place] [phone] Feb, Bipolar 1 disorder F31.9 ; A nemia D64.9 and Overactive bladder N32.81 [place] [address] [place] [id number] [address] [place] [id number] 06 Feb, 2016 Scabies B86 ; Bipolar 1 diso rder F31.9 ; Anemia D64.9 ; Overactive bladder N32.81 ; Chronic headaches R51 ; Degenerative disc disease at L5-S1 level M51.36 and Wellness examination Z00.00 [place] [id number] [place] [id number] Feb, [place] [address] [address] [place] [id number] [address] [place] [phone] Oct, IMMUNIZATIONS No Known Immunizations SOCIAL HISTORY Never Assessed REASON FOR VISIT PT follow-up PLAN OF CARE Activity Details Follow Up prn Reason:F/U PT VITAL SIGNS MEDICATIONS Unknown Medications RESULTS No Results PROCEDURES Procedure Date Ordered Result Body Site THERAPEUTIC EXERCISES Jul 24, 2017 INSTRUCTIONS MEDICATIONS ADMINISTERED No Known Medications [...] interstem replaced 05/2016 Hospitalization History [facility]- Headache 12/18/2017
--- OUTSIDE RECORDS SUMMARY | 2019-11-27 06:45 | XMS REPORT ---
Author Author Tish MALCOLM Organization [facility] Address [address] [place] [address] Care Team Providers Care Workday Consultant Name Role Phone CHARIS MALCOLM Unavailable PROBLEMS Type Condition ICD9-CM Code FDP85-YO Code Onset Dates Condition S tatus SNOMED Code Problem Anxiety F41.9 Active 64016644 Problem Hypoxemia R09.02 Active 836636006 Problem Acquired equinus deformity of left foot M21.6X2 Active 26138993 Problem Chronic fatigue R53.82 Active 8422 9001 Problem Moderate persistent asthma with exacerbation J45.4 1 Active 472703001 Problem Other chronic pain G89.29 Active 8 8852979 Problem Morbid obesity due to excess calories E66.01 Active 688718615 Problem Unsteady gait R26.81 Active 402176 08 Problem Obesity, morbid E66.01 Active 2381 67520 Problem Pure hyperglyceridemia E78.1 Active 236653611 Problem Overactive bladder N32.81 Active 2 62102837 Problem Anemia D64.9 Active 686376561 Problem Hypopotassemia E87.6 Active 05870 004 Problem Bipolar 1 disorder F31.9 Active 3 38572561 Problem Degenerative disc disease at L5-S1 level M51.36 Active 81801437 Problem Chronic headaches R51 Active 43 5836441 Problem Uncomplicated asthma, unspecified asthma severity J45.909 Active [id number] ALLERGIES No Information ENCOUNTERS Encounter Location Date Diagnosis [facility] [address] [facility] [id number] [address] [place] [phone] Jun, [facility] [address] [facility] [id number] [address] [place] [phone] May, [facility] [address] [facility] [id number] [address] [place] [phone] Apr, [facility] [address] [facility] [id number] [address] [place] [phone] 18 Apr, 2018 Unsteady gait R26.81 ; Chron ic fatigue R53.82 ; SOB (shortness of breath) R06.02 and Moderate persistent asthma with exacerbation J45.41 [place] [id number] [facility] [id number] [address] [place] [phone] 13 Apr, 2018 [facility] [address] [facility] [id number] [address] [place] [phone] 05 Apr, 2018 Medicare annual wellness vis it, initial Z00.00 [facility] [address] [facility] [id number] [address] [place] [phone] March, [place] [address] [place] [id number] [place] [address] March, [place] [address] [facility] [id number] [address] [place] [address] Feb, Medicare annual wellness vis it, initial Z00.00 ; Bipolar 1 disorder F31.9 ; Low back pain M54.5 and Other chronic pain G89.29 [place] [address] [place] [id number] [address] [place] [address] Jan, [place] [address] [place] [id number] [place] [address] Dec, Frequent headaches R51 and D egenerative disc disease at L5-S1 level M51.36 [place] [address] [place] [id number] [address] [place] [address] Nov, [facility] [address] [place] [id number] [address] [place] [phone] Nov, Chronic intractable headache , unspecified headache type R51 [facility] [address] [facility] [id number] [place] [phone] Nov, Chronic headaches R51 and BM I 45.0-49.9, adult Z68.42 [place] [address] [place] [id number] [address] [place] [phone] Nov, [place] [address] [place] [id number] [address] [place] [address] Nov, Obesity, morbid E66.01 ; Unc omplicated asthma, unspecified asthma severity J45.909 ; Anxiety F41.9 ; Pure hyperglyceridemia E78.1 and Family history of diabetes mellitus Z83.3 [place] [address] [address] Oct, Bronchitis J40 [place] [address] [address] Oct, Chronic headaches R51 [place] [address] [address] Sep, [place] [address] [address] Sep, Chronic headaches R51 ; Othe r chronic pain G89.29 ; Anemia D64.9 and Obesity, morbid E66.01 [place] [address] [address] Aug, Acute suppurative otitis med ia of right ear without spontaneous rupture of tympanic membrane, recurrence not specified H66.001 [place] [address] [address] 11 Aug, 2017 Other chronic pain G89.29 [place] [address] [address] 18 Jul, 2017 Degenerative disc disease at L5-S1 level M51.36 [place] [address] [address] 07 Jul, 2017 Other chronic pain G89.29 an d Sprain of deltoid ligament of left ankle, subsequent encounter S93.422D [place] [address] [address] 05 Jul, 2017 Degenerative disc disease at L5-S1 level M51.36 [place] [address] [address] Jun, [facility] [address] [id number] [address] [place] [phone] Jun, Degenerative disc disease at L5-S1 level M51.36 [facility] [address] [id number] [address] [place] [address] Jun, [facility] [address] [facility] [id number] [address] [place] [address] Jun, [facility] [address] [id number] [address] [place] [address] Jun, [facility] [address] [facility] [id number] [address] [place] [phone] May, [facility] [address] [facility] [id number] [address] [place] [address] May, [facility] [address] [facility] [id number] [address] [place] [address] May, Rib pain on left side R07.81 [facility] [address] [facility] [id number] [address] [place] [address] Apr, Morbid obesity due to excess calories E66.01 [facility] [address] [facility] [id number] [address] [place] [address] Apr, Gastroenteritis K52.9 [facility] [address] [facility] [id number] [address] [place] [address] Apr, Degenerative disc disease at L5-S1 level M51.36 [facility] [address] [facility] [id number] [address] [place] [address] March, Degenerative disc disease at L5-S1 level M51.36 [facility] [address] [facility] [id number] [address] [place] [address] March, Bipolar 1 disorder F31.9 ; A nemia D64.9 ; Hypopotassemia E87.6 ; Uncomplicated asthma, unspecified asthma severity J45.909 ; Anxiety F41.9 ; Chronic headaches R51 and Degenerative disc disease at L5-S1 level M51.36 [place] [address] [address] March, Degenerative disc disease at L5-S1 level M51.36 [place] [address] [place] [id number] [place] [address] March, Degenerative disc disease at L5-S1 level M51.36 [place] [address] [address] March, Uncomplicated asthma, unspec ified asthma severity J45.909 ; Hypoxemia R09.02 ; Chronic headaches R51 and Degenerative disc disease at L5-S1 level M51.36 [place] [address] [address] March, [place] [address] [address] Feb, Acquired equinus deformity o f left foot M21.6X2 [place] [address] [address] Feb, Degenerative disc disease at L5-S1 level M51.36 [place] [address] [address] Feb, Degenerative disc disease at L5-S1 level M51.36 [place] [address] [address] Jan, Degenerative disc disease at L5-S1 level M51.36 [place] [address] [address] Jan, Degenerative disc disease at L5-S1 level M51.36 [place] [address] [place] [id number] [place] [address] Dec, Degenerative disc disease at L5-S1 level M51.36 [place] [address] [address] Dec, Overactive bladder N32.81 an d Degenerative disc disease at L5-S1 level M51.36 [facility] [address] [place] [id number] [address] [place] [address] Dec, Degenerative disc disease at L5-S1 level M51.36 [facility] [address] [place] [id number] [address] [place] [address] Dec, Degenerative disc disease at L5-S1 level M51.36 [facility] [address] [facility] [id number] [address] [place] [address] Nov, [facility] [address] [place] [id number] [place] [address] Nov, Chronic headaches R51 [facility] [address] [place] [id number] [place] [address] Nov, Degenerative disc disease at L5-S1 level M51.36 [facility] [address] [place] [id number] [address] [place] [address] Nov, Left upper quadrant pain R10 .12 [facility] [address] [place] [id number] [place] [address] Nov, Degenerative disc disease at L5-S1 level M51.36 [facility] [address] [place] [id number] [address] [place] [address] Nov, Degenerative disc disease at L5-S1 level M51.36 [facility] [address] [place] [id number] [address] [place] [address] Nov, Degenerative disc disease at L5-S1 level M51.36 [facility] [address] [place] [id number] [address] [place] [address] Nov, Degenerative disc disease at L5-S1 level M51.36 [facility] [address] [place] [id number] [address] [place] [address] Nov, Degenerative disc disease at L5-S1 level M51.36 [facility] [address] [place] [id number] [address] [place] [address] Oct, Degenerative disc disease at L5-S1 level M51.36 [facility] [address] [place] [id number] [address] [place] [address] Sep, Degenerative disc disease at L5-S1 level M51.36 [facility] [address] [place] [id number] [address] [place] [address] Sep, Degenerative disc disease at L5-S1 level M51.36 ; Bipolar 1 disorder F31.9 ; Chronic headaches R51 ; Hypopotassemia E87.6 ; Uncomplicated asthma, unspecified asthma severity J45.909 ; Anxiety F41.9 ; Overactive bladder N32.[address] [facility] [address] [place] [id number] [address] [place] [address] Sep, Degenerative disc disease at L5-S1 level M51.36 [facility] [address] [place] [id number] [address] [place] [address] Aug, [facility] [address] [place] [id number] [address] [place] [address] Aug, Degenerative disc disease at L5-S1 level M51.36 ; Chronic headaches R51 ; Bipolar 1 disorder F31.9 ; Overactive bladder N32.81 ; Anxiety F41.9 and Anemia D64.9 [place] [address] [facility] [id number] [address] [place] [address] Aug, Degenerative disc disease at L5-S1 level M51.36 [facility] [address] [facility] [id number] [address] [place] [address] 18 Aug, 2016 [facility] [address] [place] [id number] [place] [address] 14 Aug, 2016 [facility] [address] [place] [id number] [address] [place] [phone] 10 Aug, 2016 Degenerative disc disease at L5-S1 level M51.36 [facility] [address] [place] [id number] [address] [place] [address] 28 Jul, 2016 Degenerative disc disease at L5-S1 level M51.36 [facility] [address] [facility] [id number] [address] [place] [address] 27 Jul, 2016 [facility] [address] [facility] [id number] [address] [place] [address] [address] Jul, 2016 [facility] [address] [place] [id number] [place] [address] 22 Jul, 2016 Degenerative disc disease at L5-S1 level M51.36 ; Pure hyperglyceridemia E78.1 ; Bipolar 1 disorder F31.9 ; Anemia D64.9 ; Overactive bladder N32.81 ; Hypopotassemia E87.6 ; Anxiety F41.9 ; Mild intermittent asthma without complication J45.20 and Chronic headaches R51 [facility] [address] [place] [id number] [address] [place] [address] 15 Jul, 2016 [facility] [address] [place] [id number] [address] [place] [phone] 07 Jul, 2016 [facility] [address] [facility] [id number] [address] [place] [address] Jun, [facility] [address] [place] [id number] [address] [place] [phone] Jun, Bipolar 1 disorder F31.9 ; A nxiety F41.9 ; Overactive bladder N32.81 ; Chronic headaches R51 ; Degenerative disc disease at L5-S1 level M51.36 ; Hypopotassemia E87.6 ; Anemia D64.9 and Morbid obesity due to excess calories E66.01 [facility] [address] [facility] [id number] [address] [place] [address] Jun, [facility] [address] [facility] [id number] [address] [place] [address] May, Overactive bladder N32.81 [facility] [address] [facility] [id number] [address] [place] [phone] May, Bipolar 1 disorder F31.9 ; A nemia D64.9 ; Overactive bladder N32.81 ; Chronic headaches R51 ; Hypopotassemia E87.6 ; Degenerative disc disease at L5-S1 level M51.36 and Uncomplicated asthma, unspecified asthma severity J45.909 [place] [id number] [address] 13 May, 2016 [place] [address] [address] May, Chronic headaches R51 [place] [address] [address] Apr, Chronic headaches R51 [place] [address] [address] March, Chronic headaches R51 [place] [address] [address] March, [place] [address] [address] Feb, Chronic headaches R51 and De generative disc disease at L5-S1 level M51.36 [place] [address] [address] Feb, Hypopotassemia E87.6 ; Anemi a D64.9 ; Overactive bladder N32.81 ; Chronic headaches R51 and Degenerative disc disease at L5-S1 level M51.36 [place] [address] [address] Feb, Bipolar 1 disorder F31.9 ; A nemia D64.9 and Overactive bladder N32.81 [place] [address] [address] Feb, Scabies B86 ; Bipolar 1 diso rder F31.9 ; Anemia D64.9 ; Overactive bladder N32.81 ; Chronic headaches R51 ; Degenerative disc disease at L5-S1 level M51.36 and Wellness examination Z00.00 [place] [address] [facility] [id number] [address] [place] [address] Feb, [facility] [address] [facility] [id number] [address] [place] [address] Oct, IMMUNIZATIONS No Known Immunizations SOCIAL HISTORY Never Assessed REASON FOR VISIT 6 mo DM ed f/u PLAN OF CARE VITAL SIGNS MEDICATIONS [...] interstem replaced 05/2016 Hospitalization History [facility] [place]- Headache 12/18/2017
--- OUTSIDE RECORDS SUMMARY | 2019-11-27 06:45 | XMS REPORT ---
Author Author Tish MALCOLM Organization [facility] Address [address] [place] [address] Care Team Providers Care Documentation Coordinator Name Role Phone CHARIS MALCOLM Unavailable PROBLEMS Type Condition ICD9-CM Code [id number] Code Onset Dates Condition S tatus SNOMED Code Problem Hypopotassemia E87.6 Active 05791 004 Problem Uncomplicated asthma, unspecified asthma severity J45.909 Active 716656537 Problem Degenerative disc disease at L5-S1 level M51.36 Active 29761868 Problem Obesity, morbid E66.01 Active 2381 08333 Problem Other chronic pain G89.29 Active 8 3753842 Problem Acquired equinus deformity of left foot M21.6X2 Active 61286722 Problem Anxiety F41.9 Active 72273039 Problem Morbid obesity due to excess calories E66.01 Active 409813166 Problem Hypoxemia R09.02 Active 276879388 Problem Overactive bladder N32.81 Active 2 90015793 Problem Bipolar 1 disorder F31.9 Active 3 00981641 Problem Chronic headaches R51 Active 43 5152689 Problem Pure hyperglyceridemia E78.1 Active 530224492 Problem Anemia D64.9 Active 786091103 ALLERGIES Substance Reaction Event Type Date Status Sulfamethoxazole-Trimethoprim Unknown Drug Allergy Aug, 201 7 Active Penicillin V Potassium Unknown Drug Allergy Aug, Activ e Morphine Sulfate anaphylaxis Drug Allergy Aug, Active Mobic fall asleep and sleep walk Drug Allergy Aug, A ctive Codeine Sulfate Unknown Drug Allergy Aug, Active Amoxicillin rash Drug Allergy Aug, Active paper tape rash Non Drug Allergy Aug, Active pink dye, purple dye sick to stomach Non Drug Allergy Aug, Active ENCOUNTERS Encounter Location Date Diagnosis [facility] [address] [facility] [id number] [address] [place] [address] March, [facility] [address] [facility] [id number] [address] [place] [address] March, [place] [address] [address] Feb, Medicare annual wellness vis it, initial Z00.00 ; Bipolar 1 disorder F31.9 ; Low back pain M54.5 and Other chronic pain G89.29 [place] [address] [address] Jan, [place] [address] [address] Dec, Frequent headaches R51 and D egenerative disc disease at L5-S1 level M51.36 [place] [address] [address] Nov, [facility] [place] [address] [address] Nov, Chronic intractable headache , unspecified headache type R51 [facility] [address] [address] Nov, Chronic headaches R51 and BM I 45.0-49.9, adult Z68.42 [place] [address] [address] Nov, [place] [address] [address] Nov, Obesity, morbid E66.01 ; Unc omplicated asthma, unspecified asthma severity J45.909 ; Anxiety F41.9 ; Pure hyperglyceridemia E78.1 and Family history of diabetes mellitus Z83.3 [place] [address] [address] Oct, Bronchitis J40 [place] [address] [address] 06 Oct, 2017 Chronic headaches R51 [place] [address] [address] Sep, [facility] [address] [id number] [address] [place] [address] Sep, Chronic headaches R51 ; Othe r chronic pain G89.29 ; Anemia D64.9 and Obesity, morbid E66.01 [facility] [address] [id number] [address] [place] [address] Aug, Acute suppurative otitis med ia of right ear without spontaneous rupture of tympanic membrane, recurrence not specified H66.001 [facility] [address] [id number] [address] [place] [address] Aug, Other chronic pain G89.29 [facility] [address] [id number] [address] [place] [address] Jul, Degenerative disc disease at L5-S1 level M51.36 [facility] [address] [id number] [address] [place] [address] Jul, Other chronic pain G89.29 an d Sprain of deltoid ligament of left ankle, subsequent encounter S93.422D [facility] [address] [facility] [id number] [address] [place] [phone] Jul, Degenerative disc disease at L5-S1 level M51.36 [facility] [address] [id number] [address] [place] [address] Jun, [facility] [address] [id number] [address] [place] [address] Jun, Degenerative disc disease at L5-S1 level M51.36 [facility] [address] [id number] [address] [place] [address] Jun, [facility] [address] [facility] [id number] [address] [place] [id number] Jun, [facility] [address] [id number] [address] [place] [address] Jun, [facility] [address] [id number] [address] [place] [address] May, [place] [address] [address] [place] [id number] [address] [place] [address] May, [place] [address] [address] May, Rib pain on left side R07.81 [place] [address] [address] Apr, Morbid obesity due to excess calories E66.01 [place] [address] [address] Apr, Gastroenteritis K52.9 [place] [address] [address] Apr, Degenerative disc disease at L5-S1 level M51.36 [place] [address] [address] March, Degenerative disc disease at L5-S1 level M51.36 [place] [address] [address] March, Bipolar 1 disorder F31.9 ; A nemia D64.9 ; Hypopotassemia E87.6 ; Uncomplicated asthma, unspecified asthma severity J45.909 ; Anxiety F41.9 ; Chronic headaches R51 and Degenerative disc disease at L5-S1 level M51.36 [place] [address] [address] March, Degenerative disc disease at L5-S1 level M51.36 [place] [address] [address] [place] [id number] [address] [place] [address] March, Degenerative disc disease at L5-S1 level M51.36 [place] [address] [address] [place] [id number] [address] [place] [address] March, Uncomplicated asthma, unspec ified asthma severity J45.909 ; Hypoxemia R09.02 ; Chronic headaches R51 and Degenerative disc disease at L5-S1 level M51.36 [facility] [address] [id number] [address] [place] [address] March, [facility] [address] [facility] [id number] [address] [place] [address] Feb, Acquired equinus deformity o f left foot M21.6X2 [facility] [address] [facility] [id number] [address] [place] [address] Feb, Degenerative disc disease at L5-S1 level M51.36 [facility] [address] [id number] [address] [place] [address] Feb, Degenerative disc disease at L5-S1 level M51.36 [facility] [address] [facility] [id number] [address] [place] [address] Jan, Degenerative disc disease at L5-S1 level M51.36 [facility] [address] [facility] [id number] [address] [place] [address] Jan, Degenerative disc disease at L5-S1 level M51.36 [facility] [address] [facility] [id number] [address] [place] [address] Dec, Degenerative disc disease at L5-S1 level M51.36 [facility] [address] [facility] [id number] [address] [place] [address] Dec, Overactive bladder N32.81 an d Degenerative disc disease at L5-S1 level M51.36 [facility] [address] [facility] [id number] [address] [place] [address] Dec, Degenerative disc disease at L5-S1 level M51.36 [facility] [address] [facility] [id number] [address] [place] [address] Dec, Degenerative disc disease at L5-S1 level M51.36 [facility] [address] [facility] [id number] [address] [place] [address] Nov, [facility] [address] [facility] [id number] [address] [place] [phone] Nov, Chronic headaches R51 [facility] [address] [facility] [id number] [address] [place] [address] Nov, Degenerative disc disease at L5-S1 level M51.36 [facility] [address] [place] [id number] [address] [place] [address] Nov, Left upper quadrant pain R10 .12 [facility] [address] [place] [id number] [place] [address] Nov, Degenerative disc disease at L5-S1 level M51.36 [facility] [address] [place] [id number] [address] [place] [address] Nov, Degenerative disc disease at L5-S1 level M51.36 [facility] [address] [place] [id number] [place] [address] Nov, Degenerative disc disease at L5-S1 level M51.36 [facility] [address] [address] Nov, Degenerative disc disease at L5-S1 level M51.36 [facility] [address] [address] Nov, Degenerative disc disease at L5-S1 level M51.36 [facility] [address] [place] [id number] [place] [address] Oct, Degenerative disc disease at L5-S1 level M51.36 [facility] [address] [place] [id number] [address] [place] [id number] Sep, Degenerative disc disease at L5-S1 level M51.36 [facility] [address] [place] [id number] [address] [place] [address] Sep, Degenerative disc disease at L5-S1 level M51.36 ; Bipolar 1 disorder F31.9 ; Chronic headaches R51 ; Hypopotassemia E87.6 ; Uncomplicated asthma, unspecified asthma severity J45.909 ; Anxiety F41.9 ; Overactive bladder N32.81 and Anemia D64.9 [facility] [address] [id number] [address] [place] [address] Sep, Degenerative disc disease at L5-S1 level M51.36 [facility] [address] [id number] [address] [place] [id number] Aug, [facility] [address] [facility] [id number] [address] [place] [id number] Aug, Degenerative disc disease at L5-S1 level M51.36 ; Chronic headaches R51 ; Bipolar 1 disorder F31.9 ; Overactive bladder N32.81 ; Anxiety F41.9 and Anemia D64.9 [facility] [address] [id number] [address] [place] [id number] Aug, Degenerative disc disease at L5-S1 level M51.36 [facility] [address] [facility] [id number] [address] [place] [id number] 18 Aug, 2016 [facility] [address] [facility] [id number] [address] [place] [id number] 14 Aug, 2016 [facility] [address] [id number] [address] [place] [id number] 10 Aug, 2016 Degenerative disc disease at L5-S1 level M51.36 [facility] [address] [facility] [id number] [address] [place] [address] 28 Jul, 2016 Degenerative disc disease at L5-S1 level M51.36 [facility] [address] [id number] [address] [place] [address] 27 Jul, 2016 [facility] [address] [id number] [address] [place] [id number] 23 Jul, 2016 [facility] [address] [facility] [id number] [address] [place] [address] 22 Jul, 2016 Degenerative disc disease at L5-S1 level M51.36 ; Pure hyperglyceridemia E78.1 ; Bipolar 1 disorder F31.9 ; Anemia D64.9 ; Overactive bladder N32.81 ; Hypopotassemia E87.6 ; Anxiety F41.9 ; Mild intermittent asthma without complication J45.20 and Chronic headaches R51 [facility] [address] [facility] [id number] [address] [place] [id number] 15 Jul, 2016 [facility] [address] [facility] [id number] [address] [place] [id number] 07 Jul, 2016 [facility] [address] [facility] [id number] [address] [place] [address] Jun, [facility] [address] [facility] [id number] [address] [place] [id number] Jun, Bipolar 1 disorder F31.9 ; A nxiety F41.9 ; Overactive bladder N32.81 ; Chronic headaches R51 ; Degenerative disc disease at L5-S1 level M51.36 ; Hypopotassemia E87.6 ; Anemia D64.9 and Morbid obesity due to excess calories E66.01 [place] [address] [address] [place] [id number] [address] [place] [id number] Jun, [facility] [address] [facility] [id number] [address] [place] [address] May, Overactive bladder N32.81 [place] [address] [address] [facility] [id number] [address] [place] [address] May, Bipolar 1 disorder F31.9 ; A nemia D64.9 ; Overactive bladder N32.81 ; Chronic headaches R51 ; Hypopotassemia E87.6 ; Degenerative disc disease at L5-S1 level M51.36 and Uncomplicated asthma, unspecified asthma severity J45.909 [facility] [address] [facility] [id number] [address] [place] [address] May, [facility] [address] [facility] [id number] [address] [place] [address] May, Chronic headaches R51 [facility] [address] [facility] [id number] [address] [place] [id number] Apr, Chronic headaches R51 [facility] [address] [place] [id number] [address] [place] [address] March, Chronic headaches R51 [place] [address] [address] March, [place] [address] [address] [place] [id number] Feb, Chronic headaches R51 and De generative disc disease at L5-S1 level M51.[address] [address] Feb, Hypopotassemia E87.6 ; Anemi a D64.9 ; Overactive bladder N32.81 ; Chronic headaches R51 and Degenerative disc disease at L5-S1 level M51.36 [place] [address] [address] Feb, Bipolar 1 disorder F31.9 ; A nemia D64.9 and Overactive bladder N32.81 [place] [address] [address] Feb, Scabies B86 ; Bipolar 1 diso rder F31.9 ; Anemia D64.9 ; Overactive bladder N32.81 ; Chronic headaches R51 ; Degenerative disc disease at L5-S1 level M51.36 and Wellness examination Z00.[address] [address] Feb, [address] [address] Oct, IMMUNIZATIONS No Known Immunizations SOCIAL HISTORY Never Assessed REASON FOR VISIT Ear pain, started on right side about 2 weeks, left ear started hurting a few da ys ago. 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 Reports dark ear wax coming out. Reports uses ear wax removal drops and q tips to clean ears. , Has red, moist rash under left breast and under pannus toward left and left groin. Reports gets blisters on groin and pannus. Has tried gold hayes medicated powder without results. 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 PLAN OF CARE VITAL SIGNS Height 65.0 in 2017-09-06 Weight 279.7 lbs 2017-09-06 Temperature 98.1 degrees Fahrenheit 2017-09-06 Heart Rate 76 bpm 2017-09-06 Respiratory Rate 20 2017-09-06 BMI 46.54 kg/m2 2017-09-06 Blood pressure systolic 118 mmHg 2017-09-06 Blood pressure diastolic 88 mmHg 2017-09-06 MEDICATIONS Medication Instructions Dosage Frequency Start Date End Date Duration S tatus Ferrous Sulfate 325 MG Orally 2 times a day 1 tablet 12h Active Neurontin 600 MG Orally Three times a day 1 tablet 8h Active Ondansetron 8 MG Orally 3 times a day PRN 1 tablet on the tongue and allow to dissolve Apr, 07 days Active Effexor XR 150 MG Orally Once a day 1 capsule with food 24h Active Hydrocodone-Ibuprofen 7.5-200 MG Orally every 6 hrs 1 tablet as nee ded 6h Aug, 28 days Active Albuterol Sulfate HFA 108 (90 Base) MCG/ACT Inhalation every 4 hrs 2 puffs as needed 4h May, Active Topamax 200 mg Orally Twice a day 1 tablet 12h Feb, 30 days Active Vistaril 25 MG Orally every 8 hrs 1 capsule as needed 8h 24 Jun, 16 Active PredniSONE 20 mg Orally Once a day 2 tablets 24h Aug, Aug, 05 days Active Seroquel 200 mg Orally Once a day 1 tablet at bedtime 24h Active Klor-Con M20 20MEQ TAKE ONE TABLET BY MOUTH TWICE DAILY 30 Active Zithromax 250 MG Orally Once a day 2 tablets on the fi rst day, then 1 tablet daily for 4 days 24h Aug, Aug, 5 day(s) Active RESULTS No Results PROCEDURES Procedure Date Ordered Result Body Site [facility] VISIT ESTABLISHED PATIENT Sep 06, 2017 INSTRUCTIONS MEDICATIONS ADMINISTERED No Known Medications [...] interstem replaced 05/2016 Hospitalization History [facility]- Headache 12/18/2017
--- OUTSIDE RECORDS SUMMARY | 2019-11-27 06:45 | XMS REPORT ---
Author Author Tish NIEVES Organization [facility] [place] Address [address] [place] [address] Care Team Providers Care Penology Professor Name Role Phone EZEQUIEL NIELS Unavailable PROBLEMS Type Condition ICD9-CM Code ALF57-YU Code Onset Dates Condition S tatus SNOMED Code Problem Hypopotassemia E87.6 Active 72911 004 Problem Uncomplicated asthma, unspecified asthma severity J45.909 Active 143286838 Problem Degenerative disc disease at L5-S1 level M51.36 Active 45758207 Problem Obesity, morbid E66.01 Active 2381 70949 Problem Other chronic pain G89.29 Active 8 6421401 Problem Acquired equinus deformity of left foot M21.6X2 Active 68629873 Problem Anxiety F41.9 Active 15035482 Problem Morbid obesity due to excess calories E66.01 Active 353324905 Problem Hypoxemia R09.02 Active 296537386 Problem Overactive bladder N32.81 Active 2 77386459 Problem Bipolar 1 disorder F31.9 Active 3 40222294 Problem Chronic headaches R51 Active 43 7973602 Problem Pure hyperglyceridemia E78.1 Active 360202029 Problem Anemia D64.9 Active [id number] ALLERGIES No Information ENCOUNTERS Encounter Location Date Diagnosis [facility] [place] [address] [facility] [id number] [address] [place] [id number] March, [facility] [place] [address] [facility] [facility] [id number] [address] [place] [phone] March, [facility] [place] [address] [facility] [id number] [address] [place] [id number] 11 Feb, 2018 Medicare annual wellness vis it, initial Z00.00 ; Bipolar 1 disorder F31.9 ; Low back pain M54.5 and Other chronic pain G89.29 [facility] [place] [address] [facility] [id number] [address] [place] [phone] Jan, [place] [address] [address] Dec, Frequent headaches R51 and D egenerative disc disease at L5-S1 level M51.36 [place] [address] [address] Nov, [facility] [address] [address] Nov, Chronic intractable headache , unspecified headache type R51 [facility] [place] [address] [address] Nov, Chronic headaches R51 and BM I 45.0-49.9, adult Z68.42 [place] [address] [address] Nov, [place] [address] [address] Nov, Obesity, morbid E66.01 ; Unc omplicated asthma, unspecified asthma severity J45.909 ; Anxiety F41.9 ; Pure hyperglyceridemia E78.1 and Family history of diabetes mellitus Z83.3 [place] [address] [address] Oct, Bronchitis J40 [place] [address] [address] Oct, Chronic headaches R51 [place] [address] [address] Sep, [place] [address] [address] Sep, Chronic headaches R51 ; Othe r chronic pain G89.29 ; Anemia D64.9 and Obesity, morbid E66.01 [place] [address] [address] Aug, Acute suppurative otitis med ia of right ear without spontaneous rupture of tympanic membrane, recurrence not specified H66.001 [facility] [place] [address] [id number] [address] [place] [id number] Aug, Other chronic pain G89.29 [facility] [place] [address] [id number] [address] [place] [id number] 18 Jul, 2017 Degenerative disc disease at L5-S1 level M51.36 [facility] [place] [address] [id number] [address] [place] [id number] 07 Jul, 2017 Other chronic pain G89.29 an d Sprain of deltoid ligament of left ankle, subsequent encounter S93.422D [facility] [place] [address] [id number] [address] [place] [id number] 05 Jul, 2017 Degenerative disc disease at L5-S1 level M51.36 [facility] [place] [address] [id number] [address] [place] [phone] Jun, [facility] [place] [address] [id number] [address] [place] [id number] Jun, Degenerative disc disease at L5-S1 level M51.36 [facility] [place] [address] [id number] [address] [place] [phone] Jun, [facility] [place] [address] [id number] [address] [place] [phone] Jun, [facility] [place] [address] [id number] [address] [place] [phone] Jun, [facility] [place] [address] [id number] [address] [place] [phone] May, [facility] [place] [address] [id number] [address] [place] [id number] May, [facility] [place] [address] [id number] [address] [place] [id number] May, Rib pain on left side R07.81 [facility] [place] [address] [id number] [address] [place] [phone] Apr, Morbid obesity due to excess calories E66.01 [place] [address] [address] [place] [id number] [address] [place] [address] Apr, Gastroenteritis K52.9 [place] [address] [address] Apr, Degenerative disc disease at L5-S1 level M51.36 [place] [address] [address] March, Degenerative disc disease at L5-S1 level M51.36 [place] [address] [address] March, Bipolar 1 disorder F31.9 ; A nemia D64.9 ; Hypopotassemia E87.6 ; Uncomplicated asthma, unspecified asthma severity J45.909 ; Anxiety F41.9 ; Chronic headaches R51 and Degenerative disc disease at L5-S1 level M51.36 [place] [address] [address] March, Degenerative disc disease at L5-S1 level M51.36 [place] [address] [address] March, Degenerative disc disease at L5-S1 level M51.36 [place] [address] [address] March, Uncomplicated asthma, unspec ified asthma severity J45.909 ; Hypoxemia R09.02 ; Chronic headaches R51 and Degenerative disc disease at L5-S1 level M51.36 [place] [address] [address] [place] [id number] [address] [place] [id number] March, [place] [address] [address] Feb, Acquired equinus deformity o f left foot M21.6X2 [place] [address] [address] Feb, Degenerative disc disease at L5-S1 level M51.36 [facility] [place] [address] [facility] [facility] [id number] [address] [place] [id number] Feb, Degenerative disc disease at L5-S1 level M51.36 [facility] [place] [address] [facility] [facility] [id number] [address] [place] [id number] Jan, Degenerative disc disease at L5-S1 level M51.36 [facility] [place] [address] [id number] [address] [place] [id number] Jan, Degenerative disc disease at L5-S1 level M51.36 [facility] [place] [address] [facility] [facility] [id number] [address] [place] [phone] Dec, Degenerative disc disease at L5-S1 level M51.36 [facility] [place] [address] [place] [id number] [address] [place] [id number] Dec, Overactive bladder N32.81 an d Degenerative disc disease at L5-S1 level M51.36 [facility] [place] [address] [id number] [address] [place] [id number] Dec, Degenerative disc disease at L5-S1 level M51.36 [facility] [place] [address] [place] [id number] [address] [place] [id number] Dec, Degenerative disc disease at L5-S1 level M51.36 [facility] [place] [address] [place] [id number] [address] [place] [id number] Nov, [facility] [place] [address] [facility] [id number] [address] [place] [id number] Nov, Chronic headaches R51 [facility] [place] [address] [facility] [id number] [address] [place] [id number] Nov, Degenerative disc disease at L5-S1 level M51.36 [facility] [place] [address] [facility] [id number] [address] [place] [id number] Nov, Left upper quadrant pain R10 .12 [facility] [place] [id number] [place] [id number] Nov, Degenerative disc disease at L5-S1 level M51.36 [facility] [place] [address] [address] Nov, Degenerative disc disease at L5-S1 level M51.36 [facility] [place] [address] [place] [id number] [place] [id number] Nov, Degenerative disc disease at L5-S1 level M51.36 [facility] [place] [address] [place] [id number] [place] [address] Nov, Degenerative disc disease at L5-S1 level M51.36 [place] [address] [address] [place] [id number] [place] [address] Nov, Degenerative disc disease at L5-S1 level M51.36 [place] [address] [address] Oct, Degenerative disc disease at L5-S1 level M51.36 [place] [address] [address] Sep, Degenerative disc disease at L5-S1 level M51.36 [place] [address] [address] Sep, Degenerative disc disease at L5-S1 level M51.36 ; Bipolar 1 disorder F31.9 ; Chronic headaches R51 ; Hypopotassemia E87.6 ; Uncomplicated asthma, unspecified asthma severity J45.909 ; Anxiety F41.9 ; Overactive bladder N32.81 and Anemia D64.9 [place] [address] [address] Sep, Degenerative disc disease at L5-S1 level M51.36 [facility] [place] [address] [place] [id number] [address] [place] [id number] Aug, [facility] [place] [address] [id number] Aug, Degenerative disc disease at L5-S1 level M51.36 ; Chronic headaches R51 ; Bipolar 1 disorder F31.9 ; Overactive bladder N32.81 ; Anxiety F41.9 and Anemia D64.9 [facility] [place] [address] [id number] [address] [place] [id number] 24 Aug, 2016 Degenerative disc disease at L5-S1 level M51.36 [facility] [place] [address] [facility] [id number] [address] [place] [id number] 18 Aug, 2016 [facility] [place] [address] [facility] [id number] [address] [place] [id number] 14 Aug, 2016 [facility] [place] [address] [facility] [id number] [address] [place] [id number] 10 Aug, 2016 Degenerative disc disease at L5-S1 level M51.36 [facility] [place] [address] [facility] [id number] [address] [place] [id number] 28 Jul, 2016 Degenerative disc disease at L5-S1 level M51.36 [facility] [place] [address] [facility] [id number] [address] [place] [id number] 27 Jul, 2016 [facility] [place] [address] [facility] [id number] [place] [phone] 23 Jul, 2016 [facility] [place] [address] [facility] [id number] [place] [id number] 22 Jul, 2016 Degenerative disc disease at L5-S1 level M51.36 ; Pure hyperglyceridemia E78.1 ; Bipolar 1 disorder F31.9 ; Anemia D64.9 ; Overactive bladder N32.81 ; Hypopotassemia E87.6 ; Anxiety F41.9 ; Mild intermittent asthma without complication J45.20 and Chronic headaches R51 [facility] [place] [address] [facility] [id number] [address] [place] [id number] 15 Jul, 2016 [facility] [place] [address] [facility] [id number] [address] [place] [id number] 07 Jul, 2016 [facility] [place] [address] [facility] [id number] [address] [place] [id number] Jun, [facility] [place] [address] [facility] [id number] [address] [place] [id number] Jun, Bipolar 1 disorder F31.9 ; A nxiety F41.9 ; Overactive bladder N32.81 ; Chronic headaches R51 ; Degenerative disc disease at L5-S1 level M51.36 ; Hypopotassemia E87.6 ; Anemia D64.9 and Morbid obesity due to excess calories E66.01 [facility] [place] [address] [facility] [id number] [address] [place] [id number] Jun, [facility] [place] [address] [facility] [id number] [address] [place] [id number] May, Overactive bladder N32.81 [facility] [place] [address] [facility] [id number] [address] [place] [id number] May, Bipolar 1 disorder F31.9 ; A nemia D64.9 ; Overactive bladder N32.81 ; Chronic headaches R51 ; Hypopotassemia E87.6 ; Degenerative disc disease at L5-S1 level M51.36 and Uncomplicated asthma, unspecified asthma severity J45.909 [facility] [place] [address] [place] [id number] [address] [place] [id number] May, [facility] [place] [address] [facility] [id number] [address] [place] [id number] May, Chronic headaches R51 [facility] [place] [address] [facility] [id number] [address] [place] [id number] Apr, Chronic headaches R51 [facility] [place] [address] [facility] [id number] [address] [place] [phone] March, Chronic headaches R51 [facility] [place] [address] [facility] [id number] [address] [place] [phone] March, [facility] [place] [address] [facility] [id number] [address] [place] [id number] Feb, Chronic headaches R51 and De generative disc disease at L5-S1 level M51.36 [place] [address] [facility] [id number] [address] [place] [id number] 19 Feb, 2016 Hypopotassemia E87.6 ; Anemi a D64.9 ; Overactive bladder N32.81 ; Chronic headaches R51 and Degenerative disc disease at L5-S1 level M51.36 [place] [address] [address] [place] [id number] [address] [place] [id number] Feb, Bipolar 1 disorder F31.9 ; A nemia D64.9 and Overactive bladder N32.81 [place] [address] [address] [place] [id number] [address] [place] [address] Feb, Scabies B86 ; Bipolar 1 diso rder F31.9 ; Anemia D64.9 ; Overactive bladder N32.81 ; Chronic headaches R51 ; Degenerative disc disease at L5-S1 level M51.36 and Wellness examination Z00.00 [place] [id number] [place] [id number] Feb, [place] [address] [address] [place] [id number] [address] [place] [id number] Oct, IMMUNIZATIONS No Known Immunizations SOCIAL HISTORY Never Assessed REASON FOR VISIT PT follow-up PLAN OF CARE Activity Details Follow Up prn Reason:F/U PT VITAL SIGNS MEDICATIONS Unknown Medications RESULTS No Results PROCEDURES Procedure Date Ordered Result Body Site THERAPEUTIC EXERCISES Jul 31, 2017 INSTRUCTIONS MEDICATIONS ADMINISTERED No Known Medications [...] interstem replaced 05/2016 Hospitalization History [facility]- Headache 12/18/2017
--- OUTSIDE RECORDS SUMMARY | 2019-11-27 06:45 | XMS REPORT ---
Author Author Tish AMLCOLM Organization [facility] Address [address] [place] [address] Care Team Providers Care Peanut Cleaner Name Role Phone CHARIS MALCOLM Unavailable PROBLEMS Type Condition ICD9-CM Code KRW82-OS Code Onset Dates Condition S tatus SNOMED Code Problem Hypopotassemia E87.6 Active 21575 004 Problem Uncomplicated asthma, unspecified asthma severity J45.909 Active 965280683 Problem Degenerative disc disease at L5-S1 level M51.36 Active 76679088 Problem Obesity, morbid E66.01 Active 2381 50408 Problem Other chronic pain G89.29 Active 8 9869843 Problem Acquired equinus deformity of left foot M21.6X2 Active 99647739 Problem Anxiety F41.9 Active 45627953 Problem Morbid obesity due to excess calories E66.01 Active 732270186 Problem Hypoxemia R09.02 Active 296260348 Problem Overactive bladder N32.81 Active 2 56512592 Problem Bipolar 1 disorder F31.9 Active 3 85852344 Problem Chronic headaches R51 Active 43 4628892 Problem Pure hyperglyceridemia E78.1 Active 504199712 Problem Anemia D64.9 Active [id number] ALLERGIES No Information ENCOUNTERS Encounter Location Date Diagnosis [facility] [address] [facility] [id number] [address] [place] [phone] Apr, [facility] [address] [facility] [id number] [address] [place] [phone] Apr, [facility] [address] [facility] [id number] [address] [place] [phone] March, [facility] [address] [facility] [id number] [address] [place] [phone] March, [facility] [address] [facility] [id number] [address] [place] [phone] Feb, Medicare annual wellness vis it, initial Z00.00 ; Bipolar 1 disorder F31.9 ; Low back pain M54.5 and Other chronic pain G89.29 [place] [address] [place] [id number] [place] [phone] Jan, [place] [address] [place] [id number] [place] [phone] Dec, Frequent headaches R51 and D egenerative disc disease at L5-S1 level M51.36 [place] [address] [place] [id number] [place] [phone] Nov, [facility] [address] [address] Nov, Chronic intractable headache , unspecified headache type R51 [facility] [address] [place] [id number] [place] [address] Nov, Chronic headaches R51 and BM I 45.0-49.9, adult Z68.42 [place] [address] [address] Nov, [place] [address] [address] Nov, Obesity, morbid E66.01 ; Unc omplicated asthma, unspecified asthma severity J45.909 ; Anxiety F41.9 ; Pure hyperglyceridemia E78.1 and Family history of diabetes mellitus Z83.3 [place] [address] [address] Oct, Bronchitis J40 [place] [address] [place] [id number] [place] [phone] Oct, Chronic headaches R51 [place] [address] [place] [id number] [place] [phone] Sep, [place] [address] [place] [id number] [place] [phone] Sep, Chronic headaches R51 ; Othe r chronic pain G89.29 ; Anemia D64.9 and Obesity, morbid E66.01 [facility] [address] [id number] [address] [place] [phone] Aug, Acute suppurative otitis med ia of right ear without spontaneous rupture of tympanic membrane, recurrence not specified H66.001 [facility] [address] [id number] [address] [place] [phone] Aug, Other chronic pain G89.29 [facility] [address] [id number] [address] [place] [id number] 18 Jul, 2017 Degenerative disc disease at L5-S1 level M51.36 [facility] [address] [id number] [address] [place] [phone] Jul, Other chronic pain G89.29 an d Sprain of deltoid ligament of left ankle, subsequent encounter S93.422D [facility] [address] [id number] [address] [place] [phone] Jul, Degenerative disc disease at L5-S1 level M51.36 [facility] [address] [id number] [address] [place] [phone] Jun, [facility] [address] [id number] [address] [place] [phone] Jun, Degenerative disc disease at L5-S1 level M51.36 [facility] [address] [id number] [address] [place] [phone] Jun, [facility] [address] [id number] [address] [place] [phone] Jun, [facility] [address] [id number] [address] [place] [phone] Jun, [facility] [address] [id number] [address] [place] [phone] May, [facility] [address] [id number] [address] [place] [phone] May, [place] [id number] [place] [phone] May, Rib pain on left side R07.81 [place] [address] [place] [id number] [address] [place] [phone] Apr, Morbid obesity due to excess calories E66.01 [place] [address] [place] [id number] [place] [phone] Apr, Gastroenteritis K52.9 [place] [address] [place] [id number] [place] [address] Apr, Degenerative disc disease at L5-S1 level M51.36 [place] [address] [address] March, Degenerative disc disease at L5-S1 level M51.36 [place] [address] [address] March, Bipolar 1 disorder F31.9 ; A nemia D64.9 ; Hypopotassemia E87.6 ; Uncomplicated asthma, unspecified asthma severity J45.909 ; Anxiety F41.9 ; Chronic headaches R51 and Degenerative disc disease at L5-S1 level M51.36 [place] [address] [place] [id number] [place] [id number] March, Degenerative disc disease at L5-S1 level M51.36 [place] [address] [place] [id number] [place] [phone] March, Degenerative disc disease at L5-S1 level M51.36 [place] [address] [place] [id number] [place] [id number] March, Uncomplicated asthma, unspec ified asthma severity J45.909 ; Hypoxemia R09.02 ; Chronic headaches R51 and Degenerative disc disease at L5-S1 level M51.36 [place] [address] [place] [id number] [place] [phone] March, [place] [id number] [place] [phone] Feb, Acquired equinus deformity o f left foot M21.6X2 [facility] [address] [place] [id number] [place] [phone] Feb, Degenerative disc disease at L5-S1 level M51.36 [facility] [address] [place] [id number] [place] [address] Feb, Degenerative disc disease at L5-S1 level M51.36 [facility] [address] [place] [id number] [place] [address] Jan, Degenerative disc disease at L5-S1 level M51.36 [facility] [address] [place] [id number] [place] [address] Jan, Degenerative disc disease at L5-S1 level M51.36 [place] [address] [address] Dec, Degenerative disc disease at L5-S1 level M51.36 [facility] [address] [place] [id number] [place] [address] Dec, Overactive bladder N32.81 an d Degenerative disc disease at L5-S1 level M51.36 [facility] [address] [place] [id number] [place] [phone] Dec, Degenerative disc disease at L5-S1 level M51.36 [facility] [address] [place] [id number] [place] [id number] Dec, Degenerative disc disease at L5-S1 level M51.36 [facility] [address] [place] [id number] [place] [phone] Nov, [facility] [address] [place] [id number] [place] [phone] Nov, Chronic headaches R51 [facility] [address] [place] [id number] [place] [phone] Nov, Degenerative disc disease at L5-S1 level M51.36 [facility] [address] [place] [id number] [place] [phone] Nov, Left upper quadrant pain R10 .12 [facility] [address] [place] [id number] [place] [phone] Nov, Degenerative disc disease at L5-S1 level M51.36 [facility] [address] [place] [id number] [place] [address] Nov, Degenerative disc disease at L5-S1 level M51.36 [facility] [address] [place] [id number] [place] [id number] Nov, Degenerative disc disease at L5-S1 level M51.36 [place] [address] [place] [id number] [place] [address] Nov, Degenerative disc disease at L5-S1 level M51.36 [place] [address] [address] Nov, Degenerative disc disease at L5-S1 level M51.36 [place] [address] [address] Oct, Degenerative disc disease at L5-S1 level M51.36 [place] [address] [address] Sep, Degenerative disc disease at L5-S1 level M51.36 [place] [address] [address] Sep, Degenerative disc disease at L5-S1 level M51.36 ; Bipolar 1 disorder F31.9 ; Chronic headaches R51 ; Hypopotassemia E87.6 ; Uncomplicated asthma, unspecified asthma severity J45.909 ; Anxiety F41.9 ; Overactive bladder N32.81 and Anemia D64.9 [place] [address] [place] [id number] [place] [address] Sep, Degenerative disc disease at L5-S1 level M51.36 [facility] [address] [facility] [id number] [address] [place] [phone] Aug, [facility] [address] [place] [id number] [place] [address] Aug, Degenerative disc disease at L5-S1 level M51.36 ; Chronic headaches R51 ; Bipolar 1 disorder F31.9 ; Overactive bladder N32.81 ; Anxiety F41.9 and Anemia D64.9 [facility] [address] [facility] [id number] [address] [place] [id number] 24 Aug, 2016 Degenerative disc disease at L5-S1 level M51.36 [facility] [address] [facility] [id number] [address] [place] [phone] 18 Aug, 2016 [facility] [address] [facility] [id number] [place] [phone] 14 Aug, 2016 [facility] [address] [place] [id number] [place] [phone] 10 Aug, 2016 Degenerative disc disease at L5-S1 level M51.36 [facility] [address] [facility] [id number] [address] [place] [id number] 28 Jul, 2016 Degenerative disc disease at L5-S1 level M51.36 [facility] [address] [facility] [id number] [address] [place] [phone] 27 Jul, 2016 [facility] [address] [place] [id number] [place] [phone] 23 Jul, 2016 [facility] [address] [facility] [id number] [address] [place] [phone] 22 Jul, 2016 Degenerative disc disease at L5-S1 level M51.36 ; Pure hyperglyceridemia E78.1 ; Bipolar 1 disorder F31.9 ; Anemia D64.9 ; Overactive bladder N32.81 ; Hypopotassemia E87.6 ; Anxiety F41.9 ; Mild intermittent asthma without complication J45.20 and Chronic headaches R51 [facility] [address] [facility] [id number] [address] [place] [id number] 15 Jul, 2016 [facility] [address] [facility] [id number] [address] [place] [phone] Jul, [facility] [address] [facility] [id number] [address] [place] [phone] Jun, [facility] [address] [facility] [id number] [address] [place] [phone] Jun, Bipolar 1 disorder F31.9 ; A nxiety F41.9 ; Overactive bladder N32.81 ; Chronic headaches R51 ; Degenerative disc disease at L5-S1 level M51.36 ; Hypopotassemia E87.6 ; Anemia D64.9 and Morbid obesity due to excess calories E66.01 [facility] [address] [facility] [id number] [address] [place] [phone] Jun, [facility] [address] [facility] [id number] [address] [place] [phone] May, Overactive bladder N32.81 [facility] [address] [facility] [id number] [address] [place] [phone] May, Bipolar 1 disorder F31.9 ; A nemia D64.9 ; Overactive bladder N32.81 ; Chronic headaches R51 ; Hypopotassemia E87.6 ; Degenerative disc disease at L5-S1 level M51.36 and Uncomplicated asthma, unspecified asthma severity J45.909 [facility] [address] [facility] [id number] [address] [place] [phone] May, [facility] [address] [facility] [id number] [address] [place] [phone] May, Chronic headaches R51 [facility] [address] [facility] [id number] [address] [place] [phone] Apr, Chronic headaches R51 [facility] [address] [facility] [id number] [address] [place] [phone] March, Chronic headaches R51 [facility] [address] [facility] [id number] [address] [place] [phone] March, [place] [address] [place] [address] Feb, Chronic headaches R51 and De generative disc disease at L5-S1 level M51.36 [place] [address] [place] [address] Feb, Hypopotassemia E87.6 ; Anemi a D64.9 ; Overactive bladder N32.81 ; Chronic headaches R51 and Degenerative disc disease at L5-S1 level M51.36 [place] [address] [place] [id number] [place] [address] Feb, Bipolar 1 disorder F31.9 ; A nemia D64.9 and Overactive bladder N32.81 [place] [address] [place] [id number] [place] [address] Feb, Scabies B86 ; Bipolar 1 diso rder F31.9 ; Anemia D64.9 ; Overactive bladder N32.81 ; Chronic headaches R51 ; Degenerative disc disease at L5-S1 level M51.36 and Wellness examination Z00.00 [place] [address] [place] [id number] [place] [phone] Feb, [place] [address] [place] [id number] [place] [address] Oct, IMMUNIZATIONS No Known Immunizations SOCIAL HISTORY Never Assessed REASON FOR VISIT Refill request PLAN OF CARE VITAL SIGNS MEDICATIONS Unknown [...] interstem replaced 05/2016 Hospitalization History [facility] [place]- Headache 12/18/2017
--- OUTSIDE RECORDS SUMMARY | 2019-11-27 06:46 | XMS REPORT ---
Author Author Tish MALCOLM Organization [facility] Address [address] [place] [address] Care Team Providers Care Supervisor [employer] Name Role Phone CHARIS MALCOLM Unavailable PROBLEMS Type Condition ICD9-CM Code JDX18-YI Code Onset Dates Condition S tatus SNOMED Code Problem Hypopotassemia E87.6 Active 76435 004 Problem Uncomplicated asthma, unspecified asthma severity J45.909 Active 490179113 Problem Degenerative disc disease at L5-S1 level M51.36 Active 13224844 Problem Obesity, morbid E66.01 Active 2381 66776 Problem Other chronic pain G89.29 Active 8 6352194 Problem Acquired equinus deformity of left foot M21.6X2 Active 00758178 Problem Anxiety F41.9 Active 53038393 Problem Morbid obesity due to excess calories E66.01 Active 802133865 Problem Hypoxemia R09.02 Active 837508314 Problem Overactive bladder N32.81 Active 2 09434055 Problem Bipolar 1 disorder F31.9 Active 3 44377826 Problem Chronic headaches R51 Active 43 6748595 Problem Pure hyperglyceridemia E78.1 Active 618163738 Problem Anemia D64.9 Active 853636875 ALLERGIES Substance Reaction Event Type Date Status Sulfamethoxazole-Trimethoprim Unknown Drug Allergy Oct, 201 7 Active Penicillin V Potassium Unknown Drug Allergy Oct, Activ e Morphine Sulfate anaphylaxis Drug Allergy Oct, Active Mobic fall asleep and sleep walk Drug Allergy Oct, A ctive Codeine Sulfate Unknown Drug Allergy Oct, Active Amoxicillin rash Drug Allergy Oct, Active paper tape rash Non Drug Allergy Oct, Active pink dye, purple dye sick to stomach Non Drug Allergy Oct, Active ENCOUNTERS Encounter Location Date Diagnosis [facility] [address] [facility] [id number] [address] [place] [phone] 18 Apr, 2018 [facility] [address] [facility] [id number] [address] [place] [phone] Apr, [facility] [address] [facility] [id number] [address] [place] [phone] Apr, Medicare annual wellness vis it, initial Z00.00 [facility] [address] [facility] [id number] [address] [place] [phone] 10 Mar, 2018 [facility] [address] [place] [id number] [place] [phone] March, [place] [address] [place] [id number] [place] [phone] 11 Feb, 2018 Medicare annual wellness vis it, initial Z00.00 ; Bipolar 1 disorder F31.9 ; Low back pain M54.5 and Other chronic pain G89.29 [place] [address] [place] [id number] [place] [phone] Jan, [place] [address] [address] Dec, Frequent headaches R51 and D egenerative disc disease at L5-S1 level M51.36 [place] [address] [address] Nov, [facility] [place] [address] [place] [id number] [place] [phone] Nov, Chronic intractable headache , unspecified headache type R51 [facility] [place] [address] [address] Nov, Chronic headaches R51 and BM I 45.0-49.9, adult Z68.42 [place] [address] [place] [id number] [place] [phone] Nov, [place] [address] [address] Nov, Obesity, morbid E66.01 ; Unc omplicated asthma, unspecified asthma severity J45.909 ; Anxiety F41.9 ; Pure hyperglyceridemia E78.1 and Family history of diabetes mellitus Z83.3 [facility] [id number] [place] [phone] 15 Oct, 2017 Bronchitis J40 [place] [address] [address] 06 Oct, 2017 Chronic headaches R51 [place] [address] [place] [id number] [place] [phone] Sep, [place] [address] [address] Sep, Chronic headaches R51 ; Othe r chronic pain G89.29 ; Anemia D64.9 and Obesity, morbid E66.01 [place] [address] [address] Aug, Acute suppurative otitis med ia of right ear without spontaneous rupture of tympanic membrane, recurrence not specified H66.001 [place] [address] [address] Aug, Other chronic pain G89.29 [place] [address] [address] 18 Jul, 2017 Degenerative disc disease at L5-S1 level M51.36 [place] [address] [address] 07 Jul, 2017 Other chronic pain G89.29 an d Sprain of deltoid ligament of left ankle, subsequent encounter S93.422D [place] [address] [place] [id number] [place] [phone] 05 Jul, 2017 Degenerative disc disease at L5-S1 level M51.36 [place] [address] [place] [id number] [place] [phone] Jun, [place] [address] [place] [id number] [place] [phone] Jun, Degenerative disc disease at L5-S1 level M51.36 [place] [address] [place] [id number] [place] [phone] Jun, [facility] [address] [address] Jun, [facility] [address] [address] Jun, [facility] [address] [address] May, [facility] [address] [address] May, [facility] [address] [address] May, Rib pain on left side R07.81 [facility] [address] [address] Apr, Morbid obesity due to excess calories E66.01 [facility] [address] [address] Apr, Gastroenteritis K52.9 [place] [address] [address] Apr, Degenerative disc disease at L5-S1 level M51.36 [place] [address] [address] March, Degenerative disc disease at L5-S1 level M51.36 [facility] [address] [address] March, Bipolar 1 disorder F31.9 ; A nemia D64.9 ; Hypopotassemia E87.6 ; Uncomplicated asthma, unspecified asthma severity J45.909 ; Anxiety F41.9 ; Chronic headaches R51 and Degenerative disc disease at L5-S1 level M51.36 [facility] [address] [address] March, Degenerative disc disease at L5-S1 level M51.36 [facility] [address] [address] March, Degenerative disc disease at L5-S1 level M51.36 [place] [address] [address] March, Uncomplicated asthma, unspec ified asthma severity J45.909 ; Hypoxemia R09.02 ; Chronic headaches R51 and Degenerative disc disease at L5-S1 level M51.36 [place] [address] [address] March, [place] [address] [address] Feb, Acquired equinus deformity o f left foot M21.6X2 [place] [address] [address] Feb, Degenerative disc disease at L5-S1 level M51.36 [place] [address] [address] Feb, Degenerative disc disease at L5-S1 level M51.36 [place] [address] [address] Jan, Degenerative disc disease at L5-S1 level M51.36 [place] [address] [address] Jan, Degenerative disc disease at L5-S1 level M51.36 [place] [address] [address] Dec, Degenerative disc disease at L5-S1 level M51.36 [place] [address] [address] Dec, Overactive bladder N32.81 an d Degenerative disc disease at L5-S1 level M51.36 [place] [address] [address] Dec, Degenerative disc disease at L5-S1 level M51.36 [facility] [address] [id number] [address] [place] [address] Dec, Degenerative disc disease at L5-S1 level M51.36 [facility] [address] [id number] [address] [place] [address] Nov, [facility] [address] [facility] [id number] [address] [place] [phone] Nov, Chronic headaches R51 [facility] [address] [id number] [address] [place] [address] Nov, Degenerative disc disease at L5-S1 level M51.36 [facility] [address] [id number] [address] [place] [phone] Nov, Left upper quadrant pain R10 .12 [facility] [address] [id number] [address] [place] [id number] Nov, Degenerative disc disease at L5-S1 level M51.36 [facility] [address] [id number] [address] [place] [phone] Nov, Degenerative disc disease at L5-S1 level M51.36 [facility] [address] [facility] [id number] [address] [place] [phone] Nov, Degenerative disc disease at L5-S1 level M51.36 [facility] [address] [facility] [id number] [address] [place] [phone] Nov, Degenerative disc disease at L5-S1 level M51.36 [facility] [address] [id number] [address] [place] [phone] Nov, Degenerative disc disease at L5-S1 level M51.36 [facility] [address] [id number] [address] [place] [id number] Oct, Degenerative disc disease at L5-S1 level M51.36 [facility] [address] [facility] [id number] [address] [place] [phone] Sep, Degenerative disc disease at L5-S1 level M51.36 [facility] [address] [id number] [address] [place] [phone] Sep, Degenerative disc disease at L5-S1 level M51.36 ; Bipolar 1 disorder F31.9 ; Chronic headaches R51 ; Hypopotassemia E87.6 ; Uncomplicated asthma, unspecified asthma severity J45.909 ; Anxiety F41.9 ; Overactive bladder N32.81 and Anemia D64.9 [facility] [address] [id number] [address] [place] [phone] Sep, Degenerative disc disease at L5-S1 level M51.36 [facility] [address] [facility] [id number] [address] [place] [phone] Aug, [facility] [address] [facility] [id number] [address] [place] [phone] Aug, Degenerative disc disease at L5-S1 level M51.36 ; Chronic headaches R51 ; Bipolar 1 disorder F31.9 ; Overactive bladder N32.81 ; Anxiety F41.9 and Anemia D64.9 [facility] [address] [facility] [id number] [address] [place] [id number] Aug, Degenerative disc disease at L5-S1 level M51.36 [facility] [address] [facility] [id number] [address] [place] [phone] 18 Aug, 2016 [facility] [address] [facility] [id number] [address] [place] [phone] 14 Aug, 2016 [facility] [address] [id number] [address] [place] [phone] Aug, Degenerative disc disease at L5-S1 level M51.36 [facility] [address] [facility] [id number] [address] [place] [phone] 28 Jul, 2016 Degenerative disc disease at L5-S1 level M51.36 [facility] [address] [facility] [id number] [address] [place] [phone] Jul, [facility] [address] [address] Jul, [place] [address] [address] Jul, Degenerative disc disease at L5-S1 level M51.36 ; Pure hyperglyceridemia E78.1 ; Bipolar 1 disorder F31.9 ; Anemia D64.9 ; Overactive bladder N32.81 ; Hypopotassemia E87.6 ; Anxiety F41.9 ; Mild intermittent asthma without complication J45.20 and Chronic headaches R51 [place] [address] [address] Jul, [place] [address] [address] Jul, [place] [address] [address] Jun, [place] [address] [address] Jun, Bipolar 1 disorder F31.9 ; A nxiety F41.9 ; Overactive bladder N32.81 ; Chronic headaches R51 ; Degenerative disc disease at L5-S1 level M51.36 ; Hypopotassemia E87.6 ; Anemia D64.9 and Morbid obesity due to excess calories E66.01 [place] [address] [address] Jun, [place] [address] [address] May, Overactive bladder N32.81 [place] [address] [address] May, Bipolar 1 disorder F31.9 ; A nemia D64.9 ; Overactive bladder N32.81 ; Chronic headaches R51 ; Hypopotassemia E87.6 ; Degenerative disc disease at L5-S1 level M51.36 and Uncomplicated asthma, unspecified asthma severity J45.909 [place] [address] [address] May, [facility] [address] [address] May, Chronic headaches R51 [facility] [address] [address] Apr, Chronic headaches R51 [facility] [address] [address] March, Chronic headaches R51 [place] [address] [address] March, [place] [address] [address] Feb, Chronic headaches R51 and De generative disc disease at L5-S1 level M51.36 [place] [address] [address] Feb, Hypopotassemia E87.6 ; Anemi a D64.9 ; Overactive bladder N32.81 ; Chronic headaches R51 and Degenerative disc disease at L5-S1 level M51.36 [place] [address] [address] Feb, Bipolar 1 disorder F31.9 ; A nemia D64.9 and Overactive bladder N32.81 [place] [address] [address] Feb, Scabies B86 ; Bipolar 1 diso rder F31.9 ; Anemia D64.9 ; Overactive bladder N32.81 ; Chronic headaches R51 ; Degenerative disc disease at L5-S1 level M51.36 and Wellness examination Z00.00 [place] [address] [address] Feb, [place] [address] [address] Oct, IMMUNIZATIONS No Known Immunizations SOCIAL HISTORY Never Assessed REASON FOR VISIT Cough x 3 days, chills----DBennettRN, back spasm this morning, difficulty walkin g PLAN OF CARE VITAL SIGNS Height 65.0 in 2017-11-09 Weight 287 lbs 2017-11-09 Temperature 98.1 degrees Fahrenheit 2017-11-09 Heart Rate 70 bpm 2017-11-09 Respiratory Rate 20 2017-11-09 BMI 47.75 kg/m2 2017-11-09 Blood pressure systolic 100 mmHg 2017-11-09 Blood pressure diastolic 74 mmHg 2017-11-09 MEDICATIONS Medication Instructions Dosage Frequency Start Date End Date Duration S tatus PredniSONE 20 mg Orally Once a day 2 tablets 24h Oct, Oct, 05 days Active Hydrocodone-Ibuprofen 7.5-200 MG Orally every 6 hrs 1 tablet as nee ded 6h Sep, 28 days Active Seroquel 200 mg Orally Once a day 1 tablet at bedtime 24h Active Doxycycline Hyclate 100 mg Orally Twice a day 1 capsule 12h 1 Oct, Oct, 10 days Active Tessalon Perles 100 mg Orally Three times a day 1 capsule as needed 8h Oct, Active Klor-Con M20 20MEQ 1 tablet 12h Acti ve Topamax 100 MG Orally Twice a day 2 tablets 12h Feb, 30 days Active Neurontin 600 MG Orally Three times a day 1 tablet 8h Active Ferrous Sulfate 325 (65 Fe) mg Orally 2 times a day 1 tablet 12h Active Effexor XR 150 MG Orally Once a day 1 capsule with food 24h Active Ondansetron 8 MG Orally 3 times a day PRN 1 tablet on the tongue and allow to dissolve Apr, 07 days Not-Taking Albuterol Sulfate HFA 108 (90 Base) MCG/ACT Inhalation every 4 hrs 2 puffs as needed 4h May, Active Vistaril 25 MG Orally every 8 hrs 1 capsule as needed 8h Jun, 16 Not-Taking Phentermine HCl 15 mg Orally Once a day 1 capsule 24h Sep, Not-Taking RESULTS No Results PROCEDURES Procedure Date Ordered Result Body Site [facility] VISIT ESTABLISHED PATIENT Nov 09, 2017 INSTRUCTIONS MEDICATIONS ADMINISTERED No Known Medications MEDICAL (GENERAL) HISTORY Type Description Date Medical History Bipolar Medical History Slipped Disc in lumbar spine Medical History Bulging disc in lumbar spine and 3 cracked disc in lumbar spine and cracked tailbone Medical History Anemia Medical History Depression Surgical History left ear um replacement Surgical History hernia Surgical History cholecystectomy Surgical History hysteretomy partial left ovaries Surgical History Left hip interstem replaced 05/2016 Hospitalization History [facility] [place]- Headache 12/18/2017
--- OUTSIDE RECORDS SUMMARY | 2019-11-27 06:46 | XMS REPORT ---
Author Author Tish Luo Organization [facility] Address [address] [place] [address] Care Team Providers Care Tie Presser Name Role Phone JIM Luo Unavailable PROBLEMS Type Condition ICD9-CM Code BSF65-NZ Code Onset Dates Condition S tatus SNOMED Code Problem Hypopotassemia E87.6 Active 59663 004 Problem Uncomplicated asthma, unspecified asthma severity J45.909 Active 695192149 Problem Degenerative disc disease at L5-S1 level M51.36 Active 52327585 Problem Obesity, morbid E66.01 Active 2381 49227 Problem Other chronic pain G89.29 Active 8 8959491 Problem Acquired equinus deformity of left foot M21.6X2 Active 19131647 Problem Anxiety F41.9 Active 27662040 Problem Morbid obesity due to excess calories E66.01 Active 974080540 Problem Hypoxemia R09.02 Active 781919761 Problem Overactive bladder N32.81 Active 2 39513659 Problem Bipolar 1 disorder F31.9 Active 3 65020610 Problem Chronic headaches R51 Active 43 9225394 Problem Pure hyperglyceridemia E78.1 Active 341391322 Problem Anemia D64.9 Active [id number] ALLERGIES No Information ENCOUNTERS Encounter Location Date Diagnosis [facility] [address] [facility] [id number] [address] [place] [address] Feb, Medicare annual wellness vis it, initial Z00.00 [place] [id number] [facility] [id number] [address] [place] [address] Jan, [facility] [address] [facility] [id number] [address] [place] [phone] 22 Dec, 2017 Frequent headaches R51 and D egenerative disc disease at L5-S1 level M51.36 [facility] [address] [facility] [id number] [address] [place] [address] Nov, [facility]ALK IN [facility] [address] [place] [id number] [address] [place] [address] Nov, Chronic intractable headache , unspecified headache type R51 [facility] [address] [place] [id number] [address] [place] [address] Nov, Chronic headaches R51 and BM I 45.0-49.9, adult Z68.42 [place] [address] [address] Nov, [place] [address] [address] Nov, Obesity, morbid E66.01 ; Unc omplicated asthma, unspecified asthma severity J45.909 ; Anxiety F41.9 ; Pure hyperglyceridemia E78.1 and Family history of diabetes mellitus Z83.3 [place] [address] [address] Oct, Bronchitis J40 [place] [address] [address] Oct, Chronic headaches R51 [place] [address] [address] Sep, [place] [address] [address] Sep, Chronic headaches R51 ; Othe r chronic pain G89.29 ; Anemia D64.9 and Obesity, morbid E66.01 [place] [address] [place] [id number] [address] [place] [address] Aug, Acute suppurative otitis med ia of right ear without spontaneous rupture of tympanic membrane, recurrence not specified H66.001 [place] [address] [place] [id number] [address] [place] [id number] 11 Aug, 2017 Other chronic pain G89.29 [place] [address] [place] [id number] [place] [address] Jul, Degenerative disc disease at L5-S1 level M51.36 [facility] [address] [id number] [address] [place] [address] 07 Jul, 2017 Other chronic pain G89.29 an d Sprain of deltoid ligament of left ankle, subsequent encounter S93.422D [facility] [address] [id number] [address] [place] [id number] 05 Jul, 2017 Degenerative disc disease at L5-S1 level M51.36 [facility] [address] [id number] [address] [place] [id number] Jun, [facility] [address] [id number] [address] [place] [address] Jun, Degenerative disc disease at L5-S1 level M51.36 [facility] [address] [id number] [address] [place] [id number] Jun, [facility] [address] [id number] [address] [place] [phone] Jun, [facility] [address] [id number] [address] [place] [phone] Jun, [facility] [address] [id number] [address] [place] [address] May, [facility] [address] [id number] [address] [place] [address] May, [facility] [address] [id number] [address] [place] [address] May, Rib pain on left side R07.81 [facility] [address] [id number] [address] [place] [address] Apr, Morbid obesity due to excess calories E66.01 [facility] [address] [id number] [address] [place] [id number] 16 Apr, 2017 Gastroenteritis K52.9 [facility] [address] [id number] [address] [place] [address] Apr, Degenerative disc disease at L5-S1 level M51.36 [place] [address] [place] [id number] [address] [place] [address] March, Degenerative disc disease at L5-S1 level M51.36 [place] [address] [place] [id number] [address] [place] [address] March, Bipolar 1 disorder F31.9 ; A nemia D64.9 ; Hypopotassemia E87.6 ; Uncomplicated asthma, unspecified asthma severity J45.909 ; Anxiety F41.9 ; Chronic headaches R51 and Degenerative disc disease at L5-S1 level M51.36 [place] [address] [place] [id number] [place] [address] March, Degenerative disc disease at L5-S1 level M51.36 [place] [address] [address] March, Degenerative disc disease at L5-S1 level M51.36 [place] [address] [place] [id number] [address] [place] [address] March, Uncomplicated asthma, unspec ified asthma severity J45.909 ; Hypoxemia R09.02 ; Chronic headaches R51 and Degenerative disc disease at L5-S1 level M51.36 [place] [address] [place] [id number] [address] [place] [address] March, [place] [address] [place] [id number] [address] [place] [address] Feb, Acquired equinus deformity o f left foot M21.6X2 [place] [address] [facility] [id number] [address] [place] [address] Feb, Degenerative disc disease at L5-S1 level M51.36 [place] [address] [place] [id number] [address] [place] [address] Feb, Degenerative disc disease at L5-S1 level M51.36 [place] [address] [place] [id number] [address] [place] [address] Jan, Degenerative disc disease at L5-S1 level M51.36 [facility] [address] [facility] [id number] [address] [place] [address] Jan, Degenerative disc disease at L5-S1 level M51.36 [facility] [address] [facility] [id number] [address] [place] [address] Dec, Degenerative disc disease at L5-S1 level M51.36 [facility] [address] [facility] [id number] [address] [place] [address] Dec, Overactive bladder N32.81 an d Degenerative disc disease at L5-S1 level M51.36 [facility] [address] [facility] [id number] [address] [place] [address] Dec, Degenerative disc disease at L5-S1 level M51.36 [facility] [address] [facility] [id number] [address] [place] [address] Dec, Degenerative disc disease at L5-S1 level M51.36 [facility] [address] [id number] [address] [place] [address] Nov, [facility] [address] [facility] [id number] [address] [place] [address] Nov, Chronic headaches R51 [facility] [address] [facility] [id number] [address] [place] [address] Nov, Degenerative disc disease at L5-S1 level M51.36 [facility] [address] [id number] [address] [place] [address] Nov, Left upper quadrant pain R10 .12 [facility] [address] [facility] [id number] [address] [place] [address] Nov, Degenerative disc disease at L5-S1 level M51.36 [facility] [address] [facility] [id number] [address] [place] [address] Nov, Degenerative disc disease at L5-S1 level M51.36 [place] [address] [place] [id number] [place] [address] Nov, Degenerative disc disease at L5-S1 level M51.36 [place] [address] [address] Nov, Degenerative disc disease at L5-S1 level M51.36 [place] [address] [address] Nov, Degenerative disc disease at L5-S1 level M51.36 [place] [address] [place] [id number] [place] [address] Oct, Degenerative disc disease at L5-S1 level M51.36 [place] [address] [address] Sep, Degenerative disc disease at L5-S1 level M51.36 [place] [address] [address] Sep, Degenerative disc disease at L5-S1 level M51.36 ; Bipolar 1 disorder F31.9 ; Chronic headaches R51 ; Hypopotassemia E87.6 ; Uncomplicated asthma, unspecified asthma severity J45.909 ; Anxiety F41.9 ; Overactive bladder N32.81 and Anemia D64.9 [place] [address] [address] Sep, Degenerative disc disease at L5-S1 level M51.36 [place] [address] [address] Aug, [place] [address] [address] Aug, Degenerative disc disease at L5-S1 level M51.36 ; Chronic headaches R51 ; Bipolar 1 disorder F31.9 ; Overactive bladder N32.81 ; Anxiety F41.9 and Anemia D64.9 [place] [address] [address] Aug, Degenerative disc disease at L5-S1 level M51.36 [facility] [address] [facility] [id number] [address] [place] [address] 18 Aug, 2016 [facility] [address] [facility] [id number] [address] [place] [address] 14 Aug, 2016 [facility] [address] [place] [id number] [place] [address] 10 Aug, 2016 Degenerative disc disease at L5-S1 level M51.36 [facility] [address] [facility] [id number] [address] [place] [address] 28 Jul, 2016 Degenerative disc disease at L5-S1 level M51.36 [facility] [address] [place] [id number] [place] [address] 27 Jul, 2016 [facility] [address] [place] [id number] [place] [address] 23 Jul, 2016 [facility] [address] [address] 22 Jul, 2016 Degenerative disc disease at L5-S1 level M51.36 ; Pure hyperglyceridemia E78.1 ; Bipolar 1 disorder F31.9 ; Anemia D64.9 ; Overactive bladder N32.81 ; Hypopotassemia E87.6 ; Anxiety F41.9 ; Mild intermittent asthma without complication J45.20 and Chronic headaches R51 [facility] [address] [place] [id number] [address] [place] [address] 15 Jul, 2016 [facility] [address] [place] [id number] [address] [place] [address] 07 Jul, 2016 [facility] [address] [address] Jun, [facility] [address] [place] [id number] [place] [address] Jun, Bipolar 1 disorder F31.9 ; A nxiety F41.9 ; Overactive bladder N32.81 ; Chronic headaches R51 ; Degenerative disc disease at L5-S1 level M51.36 ; Hypopotassemia E87.6 ; Anemia D64.9 and Morbid obesity due to excess calories E66.01 [place] [address] [address] Jun, [place] [address] [address] May, Overactive bladder N32.81 [place] [address] [address] May, Bipolar 1 disorder F31.9 ; A nemia D64.9 ; Overactive bladder N32.81 ; Chronic headaches R51 ; Hypopotassemia E87.6 ; Degenerative disc disease at L5-S1 level M51.36 and Uncomplicated asthma, unspecified asthma severity J45.909 [place] [address] [address] May, [place] [address] [address] May, Chronic headaches R51 [place] [address] [address] Apr, Chronic headaches R51 [place] [address] [address] March, Chronic headaches R51 [place] [address] [address] March, [place] [address] [place] [id number] [place] [address] Feb, Chronic headaches R51 and De generative disc disease at L5-S1 level M51.36 [place] [address] [place] [id number] [place] [address] Feb, Hypopotassemia E87.6 ; Anemi a D64.9 ; Overactive bladder N32.81 ; Chronic headaches R51 and Degenerative disc disease at L5-S1 level M51.36 [place] [address] [facility] [id number] [address] [place] [address] 07 Feb, 2016 Bipolar 1 disorder F31.9 ; A nemia D64.9 and Overactive bladder N32.81 [facility] [address] [facility] [id number] [address] [place] [address] 06 Feb, 2016 Scabies B86 ; Bipolar 1 diso rder F31.9 ; Anemia D64.9 ; Overactive bladder N32.81 ; Chronic headaches R51 ; Degenerative disc disease at L5-S1 level M51.36 and Wellness examination Z00.00 [place] [address] [facility] [id number] [address] [place] [address] Feb, [place] [address] [facility] [id number] [address] [place] [address] Oct, IMMUNIZATIONS No Known Immunizations SOCIAL HISTORY Never Assessed REASON FOR VISIT Er f/u PLAN OF CARE VITAL SIGNS MEDICATIONS [...] interstem replaced 05/2016 Hospitalization History [facility]- Headache 12/18/2017
--- OUTSIDE RECORDS SUMMARY | 2019-11-27 06:46 | XMS REPORT ---
Author Author Tish TRONCOSO Organization [facility] Address [address] [place] [address] Care Team Providers Care Lab Tech Name Role Phone URSULA TRONCOSO Unavailable PROBLEMS Type Condition ICD9-CM Code WUE16-SH Code Onset Dates Condition S tatus SNOMED Code Problem Hypopotassemia E87.6 Active 26472 004 Problem Uncomplicated asthma, unspecified asthma severity J45.909 Active 572219948 Problem Degenerative disc disease at L5-S1 level M51.36 Active 51599404 Problem Obesity, morbid E66.01 Active 2381 49249 Problem Other chronic pain G89.29 Active 8 1026957 Problem Acquired equinus deformity of left foot M21.6X2 Active 29303118 Problem Anxiety F41.9 Active 34929282 Problem Morbid obesity due to excess calories E66.01 Active 523444423 Problem Hypoxemia R09.02 Active 220773837 Problem Overactive bladder N32.81 Active 2 75982286 Problem Bipolar 1 disorder F31.9 Active 3 37341596 Problem Chronic headaches R51 Active 43 4617685 Problem Pure hyperglyceridemia E78.1 Active 711245214 Problem Anemia D64.9 Active 346919956 ALLERGIES No Information ENCOUNTERS Encounter Location Date Diagnosis [facility] [address] [facility] [id number] [address] [place] [phone] March, [facility] [address] [facility] [id number] [address] [place] [phone] Feb, Medicare annual wellness vis it, initial Z00.00 ; Bipolar 1 disorder F31.9 ; Low back pain M54.5 and Other chronic pain G89.29 [facility] [address] [facility] [id number] [address] [place] [phone] Jan, [facility] [address] [facility] [id number] [address] [place] [phone] Dec, Frequent headaches R51 and D egenerative disc disease at L5-S1 level M51.36 [place] [address] [address] Nov, [facility] [address] [address] Nov, Chronic intractable headache , unspecified headache type R51 [facility] [address] [address] Nov, Chronic headaches R51 and BM I 45.0-49.9, adult Z68.42 [place] [address] [address] Nov, [place] [address] [address] Nov, Obesity, morbid E66.01 ; Unc omplicated asthma, unspecified asthma severity J45.909 ; Anxiety F41.9 ; Pure hyperglyceridemia E78.1 and Family history of diabetes mellitus Z83.3 [place] [address] [address] Oct, Bronchitis J40 [place] [address] [address] Oct, Chronic headaches R51 [place] [address] [address] Sep, [place] [address] [address] Sep, Chronic headaches R51 ; Othe r chronic pain G89.29 ; Anemia D64.9 and Obesity, morbid E66.01 [place] [address] [address] Aug, Acute suppurative otitis med ia of right ear without spontaneous rupture of tympanic membrane, recurrence not specified H66.001 [place] [address] [place] [id number] [address] [place] [phone] Aug, Other chronic pain G89.29 [facility] [address] [id number] [address] [place] [phone] Jul, Degenerative disc disease at L5-S1 level M51.36 [facility] [address] [id number] [address] [place] [phone] 07 Jul, 2017 Other chronic pain G89.29 an d Sprain of deltoid ligament of left ankle, subsequent encounter S93.422D [facility] [address] [id number] [address] [place] [id number] 05 Jul, 2017 Degenerative disc disease at L5-S1 level M51.36 [facility] [address] [id number] [address] [place] [phone] Jun, [facility] [address] [id number] [address] [place] [phone] Jun, Degenerative disc disease at L5-S1 level M51.36 [facility] [address] [id number] [address] [place] [phone] Jun, [facility] [address] [id number] [address] [place] [phone] Jun, [facility] [address] [id number] [address] [place] [phone] Jun, [facility] [address] [id number] [address] [place] [phone] May, [facility] [address] [id number] [address] [place] [phone] May, [facility] [address] [id number] [address] [place] [phone] May, Rib pain on left side R07.81 [facility] [address] [id number] [address] [place] [phone] Apr, Morbid obesity due to excess calories E66.01 [place] [address] [place] [id number] [address] [place] [phone] Apr, Gastroenteritis K52.9 [place] [address] [address] Apr, Degenerative disc disease at L5-S1 level M51.36 [place] [address] [place] [id number] [address] [place] [phone] March, Degenerative disc disease at L5-S1 level M51.36 [place] [address] [address] March, Bipolar 1 disorder F31.9 ; A nemia D64.9 ; Hypopotassemia E87.6 ; Uncomplicated asthma, unspecified asthma severity J45.909 ; Anxiety F41.9 ; Chronic headaches R51 and Degenerative disc disease at L5-S1 level M51.36 [place] [address] [address] March, Degenerative disc disease at L5-S1 level M51.36 [place] [address] [address] March, Degenerative disc disease at L5-S1 level M51.36 [place] [address] [place] [id number] [address] [place] [phone] March, Uncomplicated asthma, unspec ified asthma severity J45.909 ; Hypoxemia R09.02 ; Chronic headaches R51 and Degenerative disc disease at L5-S1 level M51.36 [place] [address] [place] [id number] [address] [place] [phone] March, [place] [address] [address] Feb, Acquired equinus deformity o f left foot M21.6X2 [place] [address] [place] [id number] [address] [place] [phone] Feb, Degenerative disc disease at L5-S1 level M51.36 [place] [address] [place] [id number] [address] [place] [phone] Feb, Degenerative disc disease at L5-S1 level M51.36 [facility] [address] [facility] [id number] [address] [place] [phone] Jan, Degenerative disc disease at L5-S1 level M51.36 [facility] [address] [facility] [id number] [address] [place] [phone] Jan, Degenerative disc disease at L5-S1 level M51.36 [facility] [address] [facility] [id number] [address] [place] [phone] Dec, Degenerative disc disease at L5-S1 level M51.36 [facility] [address] [place] [id number] [address] [place] [phone] Dec, Overactive bladder N32.81 an d Degenerative disc disease at L5-S1 level M51.36 [facility] [address] [place] [id number] [address] [place] [phone] Dec, Degenerative disc disease at L5-S1 level M51.36 [facility] [address] [facility] [id number] [address] [place] [phone] Dec, Degenerative disc disease at L5-S1 level M51.36 [facility] [address] [facility] [id number] [address] [place] [phone] Nov, [facility] [address] [place] [id number] [address] [place] [phone] Nov, Chronic headaches R51 [facility] [address] [facility] [id number] [address] [place] [phone] Nov, Degenerative disc disease at L5-S1 level M51.36 [facility] [address] [place] [id number] [address] [place] [phone] Nov, Left upper quadrant pain R10 .12 [facility] [address] [facility] [id number] [address] [place] [phone] Nov, Degenerative disc disease at L5-S1 level M51.36 [facility] [address] [place] [id number] [address] [place] [phone] Nov, Degenerative disc disease at L5-S1 level M51.36 [facility] [address] [place] [id number] [address] [place] [id number] Nov, Degenerative disc disease at L5-S1 level M51.36 [facility] [address] [address] Nov, Degenerative disc disease at L5-S1 level M51.36 [facility] [address] [place] [id number] [place] [address] Nov, Degenerative disc disease at L5-S1 level M51.36 [place] [address] [place] [id number] [place] [phone] Oct, Degenerative disc disease at L5-S1 level M51.36 [place] [address] [address] Sep, Degenerative disc disease at L5-S1 level M51.36 [place] [address] [address] Sep, Degenerative disc disease at L5-S1 level M51.36 ; Bipolar 1 disorder F31.9 ; Chronic headaches R51 ; Hypopotassemia E87.6 ; Uncomplicated asthma, unspecified asthma severity J45.909 ; Anxiety F41.9 ; Overactive bladder N32.81 and Anemia D64.9 [facility] [address] [place] [id number] [address] [place] [phone] Sep, Degenerative disc disease at L5-S1 level M51.36 [facility] [address] [place] [id number] [place] [phone] Aug, [place] [address] [place] [id number] [place] [phone] Aug, Degenerative disc disease at L5-S1 level M51.36 ; Chronic headaches R51 ; Bipolar 1 disorder F31.9 ; Overactive bladder N32.81 ; Anxiety F41.9 and Anemia D64.9 [facility] [address] [facility] [id number] [address] [place] [phone] 24 Aug, 2016 Degenerative disc disease at L5-S1 level M51.36 [facility] [address] [facility] [id number] [address] [place] [phone] 18 Aug, 2016 [facility] [address] [facility] [id number] [address] [place] [phone] 14 Aug, 2016 [facility] [address] [facility] [id number] [address] [place] [phone] 10 Aug, 2016 Degenerative disc disease at L5-S1 level M51.36 [facility] [address] [place] [id number] [address] [place] [id number] 28 Jul, 2016 Degenerative disc disease at L5-S1 level M51.36 [facility] [address] [place] [id number] [address] [place] [phone] 27 Jul, 2016 [facility] [address] [facility] [id number] [address] [place] [phone] 23 Jul, 2016 [facility] [address] [place] [id number] [place] [phone] 22 Jul, 2016 Degenerative disc disease at L5-S1 level M51.36 ; Pure hyperglyceridemia E78.1 ; Bipolar 1 disorder F31.9 ; Anemia D64.9 ; Overactive bladder N32.81 ; Hypopotassemia E87.6 ; Anxiety F41.9 ; Mild intermittent asthma without complication J45.20 and Chronic headaches R51 [facility] [address] [facility] [id number] [address] [place] [phone] 15 Jul, 2016 [facility] [address] [place] [id number] [address] [place] [phone] 07 Jul, 2016 [facility] [address] [place] [id number] [address] [place] [phone] Jun, [facility] [address] [place] [id number] [place] [address] [place] [address] Jun, Bipolar 1 disorder F31.9 ; A nxiety F41.9 ; Overactive bladder N32.81 ; Chronic headaches R51 ; Degenerative disc disease at L5-S1 level M51.36 ; Hypopotassemia E87.6 ; Anemia D64.9 and Morbid obesity due to excess calories E66.01 [facility] [address] [place] [id number] [address] [place] [phone] Jun, [facility] [address] [place] [id number] [place] [address] May, Overactive bladder N32.81 [place] [address] [place] [id number] [place] [phone] May, Bipolar 1 disorder F31.9 ; A nemia D64.9 ; Overactive bladder N32.81 ; Chronic headaches R51 ; Hypopotassemia E87.6 ; Degenerative disc disease at L5-S1 level M51.36 and Uncomplicated asthma, unspecified asthma severity J45.909 [place] [id number] [place] [phone] May, [facility] [address] [place] [id number] [place] [phone] May, Chronic headaches R51 [facility] [address] [place] [id number] [place] [phone] Apr, Chronic headaches R51 [facility] [address] [place] [id number] [address] [place] [phone] March, Chronic headaches R51 [facility] [address] [place] [id number] [address] [place] [phone] March, [facility] [address] [place] [id number] [address] [place] [phone] Feb, Chronic headaches R51 and De generative disc disease at L5-S1 level M51.36 [facility] [address] [place] [id number] [address] [place] [id number] Feb, Hypopotassemia E87.6 ; Anemi a D64.9 ; Overactive bladder N32.81 ; Chronic headaches R51 and Degenerative disc disease at L5-S1 level M51.36 [place] [address] [place] [address] Feb, Bipolar 1 disorder F31.9 ; A nemia D64.9 and Overactive bladder N32.81 [place] [address] [place] [id number] [address] [place] [address] Feb, Scabies B86 ; Bipolar 1 diso rder F31.9 ; Anemia D64.9 ; Overactive bladder N32.81 ; Chronic headaches R51 ; Degenerative disc disease at L5-S1 level M51.36 and Wellness examination Z00.00 [place] [address] [place] [id number] [address] [place] [phone] Feb, [place] [address] [address] Oct, IMMUNIZATIONS No Known Immunizations SOCIAL HISTORY Never Assessed REASON FOR VISIT Controlled Refill Request PLAN OF CARE VITAL SIGNS MEDICATIONS Medication Instructions Dosage Frequency Start Date End Date Duration S tatus Hydrocodone-Ibuprofen 7.5-200 MG Orally every 6 hrs 1 tablet as nee ded 6h Aug, 28 days Active RESULTS No Results PROCEDURES [...] interstem replaced 05/2016 Hospitalization History [facility]- Headache 12/18/2017
--- OUTSIDE RECORDS SUMMARY | 2019-11-27 06:46 | XMS REPORT ---
Author Author Tish NIEVES Organization [facility] Address [address] [place] [address] Care Team Providers Care Hunting Sales Associate Name Role Phone EZEQUIEL NIELS Unavailable PROBLEMS Type Condition ICD9-CM Code [id number] Code Onset Dates Condition S tatus SNOMED Code Problem Hypopotassemia E87.6 Active 99266 004 Problem Uncomplicated asthma, unspecified asthma severity J45.909 Active 859015984 Problem Degenerative disc disease at L5-S1 level M51.36 Active 84720546 Problem Obesity, morbid E66.01 Active 2381 00338 Problem Other chronic pain G89.29 Active 8 7862600 Problem Acquired equinus deformity of left foot M21.6X2 Active 79384152 Problem Anxiety F41.9 Active 89976008 Problem Morbid obesity due to excess calories E66.01 Active 212085371 Problem Hypoxemia R09.02 Active 156911565 Problem Overactive bladder N32.81 Active 2 30664348 Problem Bipolar 1 disorder F31.9 Active 3 43733216 Problem Chronic headaches R51 Active 43 0471883 Problem Pure hyperglyceridemia E78.1 Active 786513867 Problem Anemia D64.9 Active 351680840 ALLERGIES No Information ENCOUNTERS Encounter Location Date Diagnosis [facility] [address] [facility] [place] [id number] [address] [place] [address] Feb, Medicare annual wellness vis it, initial Z00.00 [facility] [address] [facility] [place] [id number] [address] [place] [address] Jan, [facility] [address] [facility] [place] [id number] [address] [place] [address] Dec, Frequent headaches R51 and D egenerative disc disease at L5-S1 level M51.36 [facility] [address] [facility] [place] [id number] [address] [place] [address] Nov, [facility] [address] [address] Nov, Chronic intractable headache , unspecified headache type R51 [facility] [address] [address] Nov, Chronic headaches R51 and BM I 45.0-49.9, adult Z68.42 [place] [address] [address] Nov, [place] [address] [address] Nov, Obesity, morbid E66.01 ; Unc omplicated asthma, unspecified asthma severity J45.909 ; Anxiety F41.9 ; Pure hyperglyceridemia E78.1 and Family history of diabetes mellitus Z83.3 [place] [address] [address] Oct, Bronchitis J40 [place] [address] [address] Oct, Chronic headaches R51 [place] [address] [address] Sep, [place] [address] [address] Sep, Chronic headaches R51 ; Othe r chronic pain G89.29 ; Anemia D64.9 and Obesity, morbid E66.01 [place] [address] [address] Aug, Acute suppurative otitis med ia of right ear without spontaneous rupture of tympanic membrane, recurrence not specified H66.001 [place] [address] [address] Aug, Other chronic pain G89.29 [place] [address] [address] Jul, Degenerative disc disease at L5-S1 level M51.36 [facility] [address] [id number] [address] [place] [address] Jul, Other chronic pain G89.29 an d Sprain of deltoid ligament of left ankle, subsequent encounter S93.422D [facility] [address] [id number] [address] [place] [address] 05 Jul, 2017 Degenerative disc disease at L5-S1 level M51.36 [facility] [address] [id number] [address] [place] [address] Jun, [facility] [address] [id number] [address] [place] [address] Jun, Degenerative disc disease at L5-S1 level M51.36 [facility] [address] [id number] [address] [place] [address] Jun, [facility] [address] [id number] [address] [place] [phone] Jun, [facility] [address] [id number] [address] [place] [address] Jun, [facility] [address] [id number] [address] [place] [address] May, [facility] [address] [id number] [address] [place] [address] May, [facility] [address] [id number] [address] [place] [address] May, Rib pain on left side R07.81 [facility] [address] [id number] [address] [place] [address] Apr, Morbid obesity due to excess calories E66.01 [facility] [address] [id number] [address] [place] [address] 16 Apr, 2017 Gastroenteritis K52.9 [facility] [address] [id number] [address] [place] [address] Apr, Degenerative disc disease at L5-S1 level M51.36 [place] [id number] [place] [address] March, Degenerative disc disease at L5-S1 level M51.36 [place] [address] [address] March, Bipolar 1 disorder F31.9 ; A nemia D64.9 ; Hypopotassemia E87.6 ; Uncomplicated asthma, unspecified asthma severity J45.909 ; Anxiety F41.9 ; Chronic headaches R51 and Degenerative disc disease at L5-S1 level M51.36 [place] [address] [address] March, Degenerative disc disease at L5-S1 level M51.36 [place] [address] [address] March, Degenerative disc disease at L5-S1 level M51.36 [place] [address] [address] March, Uncomplicated asthma, unspec ified asthma severity J45.909 ; Hypoxemia R09.02 ; Chronic headaches R51 and Degenerative disc disease at L5-S1 level M51.36 [place] [address] [address] March, [place] [address] [address] Feb, Acquired equinus deformity o f left foot M21.6X2 [place] [address] [place] [id number] [address] [place] [address] Feb, Degenerative disc disease at L5-S1 level M51.36 [place] [address] [place] [id number] [address] [place] [address] Feb, Degenerative disc disease at L5-S1 level M51.36 [place] [address] [address] Jan, Degenerative disc disease at L5-S1 level M51.36 [facility] [address] [id number] [address] [place] [address] Jan, Degenerative disc disease at L5-S1 level M51.36 [facility] [address] [id number] [address] [place] [address] Dec, Degenerative disc disease at L5-S1 level M51.36 [facility] [address] [id number] [address] [place] [address] Dec, Overactive bladder N32.81 an d Degenerative disc disease at L5-S1 level M51.36 [facility] [address] [id number] [address] [place] [address] Dec, Degenerative disc disease at L5-S1 level M51.36 [facility] [address] [id number] [address] [place] [address] Dec, Degenerative disc disease at L5-S1 level M51.36 [facility] [address] [id number] [address] [place] [address] Nov, [facility] [address] [id number] [address] [place] [address] Nov, Chronic headaches R51 [facility] [address] [facility] [place] [id number] [address] [place] [address] Nov, Degenerative disc disease at L5-S1 level M51.36 [facility] [address] [id number] [address] [place] [address] Nov, Left upper quadrant pain R10 .12 [facility] [address] [id number] [address] [place] [address] Nov, Degenerative disc disease at L5-S1 level M51.36 [facility] [address] [facility] [place] [id number] [address] [place] [address] Nov, Degenerative disc disease at L5-S1 level M51.36 [facility] [address] [address] Nov, Degenerative disc disease at L5-S1 level M51.36 [place] [address] [address] Nov, Degenerative disc disease at L5-S1 level M51.36 [place] [address] [address] Nov, Degenerative disc disease at L5-S1 level M51.36 [place] [address] [address] Oct, Degenerative disc disease at L5-S1 level M51.36 [place] [address] [address] Sep, Degenerative disc disease at L5-S1 level M51.36 [place] [address] [address] Sep, Degenerative disc disease at L5-S1 level M51.36 ; Bipolar 1 disorder F31.9 ; Chronic headaches R51 ; Hypopotassemia E87.6 ; Uncomplicated asthma, unspecified asthma severity J45.909 ; Anxiety F41.9 ; Overactive bladder N32.81 and Anemia D64.[address] [address] Sep, Degenerative disc disease at L5-S1 level M51.36 [place] [address] [address] Aug, [place] [address] [address] Aug, Degenerative disc disease at L5-S1 level M51.36 ; Chronic headaches R51 ; Bipolar 1 disorder F31.9 ; Overactive bladder N32.81 ; Anxiety F41.9 and Anemia D64.9 [place] [address] [address] Aug, Degenerative disc disease at L5-S1 level M51.36 [facility] [address] [facility] [place] [id number] [address] [place] [address] 18 Aug, 2016 [facility] [address] [facility] [place] [id number] [address] [place] [address] 14 Aug, 2016 [facility] [address] [place] [id number] [place] [address] 10 Aug, 2016 Degenerative disc disease at L5-S1 level M51.36 [facility] [address] [facility] [place] [id number] [address] [place] [address] 28 Jul, 2016 Degenerative disc disease at L5-S1 level M51.36 [facility] [address] [place] [id number] [place] [address] 27 Jul, 2016 [facility] [address] [place] [id number] [place] [address] 23 Jul, 2016 [facility] [address] [place] [id number] [place] [address] 22 Jul, 2016 Degenerative disc disease at L5-S1 level M51.36 ; Pure hyperglyceridemia E78.1 ; Bipolar 1 disorder F31.9 ; Anemia D64.9 ; Overactive bladder N32.81 ; Hypopotassemia E87.6 ; Anxiety F41.9 ; Mild intermittent asthma without complication J45.20 and Chronic headaches R51 [facility] [address] [place] [id number] [address] [place] [address] 15 Jul, 2016 [facility] [address] [place] [id number] [address] [place] [address] 07 Jul, 2016 [facility] [address] [place] [id number] [address] [place] [address] Jun, [facility] [address] [place] [id number] [place] [address] Jun, Bipolar 1 disorder F31.9 ; A nxiety F41.9 ; Overactive bladder N32.81 ; Chronic headaches R51 ; Degenerative disc disease at L5-S1 level M51.36 ; Hypopotassemia E87.6 ; Anemia D64.9 and Morbid obesity due to excess calories E66.01 [place] [address] [address] Jun, [place] [address] [place] [id number] [place] [address] May, Overactive bladder N32.81 [place] [address] [place] [id number] [place] [address] May, Bipolar 1 disorder F31.9 ; A nemia D64.9 ; Overactive bladder N32.81 ; Chronic headaches R51 ; Hypopotassemia E87.6 ; Degenerative disc disease at L5-S1 level M51.36 and Uncomplicated asthma, unspecified asthma severity J45.909 [place] [address] [address] May, [place] [address] [address] May, Chronic headaches R51 [place] [address] [address] Apr, Chronic headaches R51 [place] [address] [address] March, Chronic headaches R51 [place] [address] [address] March, [place] [address] [place] [id number] [place] [address] Feb, Chronic headaches R51 and De generative disc disease at L5-S1 level M51.36 [place] [address] [place] [id number] [place] [address] Feb, Hypopotassemia E87.6 ; Anemi a D64.9 ; Overactive bladder N32.81 ; Chronic headaches R51 and Degenerative disc disease at L5-S1 level M51.36 [place] [address] [place] [id number] [place] [address], [place] [address] 07 Feb, 2016 Bipolar 1 disorder F31.9 ; A nemia D64.9 and Overactive bladder N32.81 [place] [address] [facility] [place] [id number] [address] [place] [phone] 06 Feb, 2016 Scabies B86 ; Bipolar 1 diso rder F31.9 ; Anemia D64.9 ; Overactive bladder N32.81 ; Chronic headaches R51 ; Degenerative disc disease at L5-S1 level M51.36 and Wellness examination Z00.00 [place] [address] [facility] [place] [id number] [address] [place] [address] Feb, [place] [address] [facility] [place] [id number] [address] [place] [address] Oct, IMMUNIZATIONS No Known Immunizations SOCIAL HISTORY Never Assessed REASON FOR VISIT PT follow-up PLAN OF CARE Activity Details Follow Up prn Reason:F/U PT VITAL SIGNS MEDICATIONS Unknown Medications RESULTS No Results PROCEDURES Procedure Date Ordered Result Body Site THERAPEUTIC EXERCISES April 25, 2017 INSTRUCTIONS MEDICATIONS ADMINISTERED No Known Medications [...] interstem replaced 05/2016 Hospitalization History [facility]- Headache 12/18/2017
--- OUTSIDE RECORDS SUMMARY | 2019-11-27 06:46 | XMS REPORT ---
Author Author Tihs Luo Organization [facility] Address [address] [place] [address] Care Team Providers Care Lpn Or Medical Assistant Name Role Phone JIM Luo Unavailable PROBLEMS Type Condition ICD9-CM Code HUQ11-BK Code Onset Dates Condition S tatus SNOMED Code Problem Hypopotassemia E87.6 Active 56823 004 Problem Uncomplicated asthma, unspecified asthma severity J45.909 Active 015441411 Problem Degenerative disc disease at L5-S1 level M51.36 Active 27129513 Problem Obesity, morbid E66.01 Active 2381 21663 Problem Other chronic pain G89.29 Active 8 2254450 Problem Acquired equinus deformity of left foot M21.6X2 Active 88283489 Problem Anxiety F41.9 Active 45769324 Problem Morbid obesity due to excess calories E66.01 Active 645222033 Problem Hypoxemia R09.02 Active 276064881 Problem Overactive bladder N32.81 Active 2 27728129 Problem Bipolar 1 disorder F31.9 Active 3 51790890 Problem Chronic headaches R51 Active 43 4842562 Problem Pure hyperglyceridemia E78.1 Active 797470736 Problem Anemia D64.9 Active [id number] ALLERGIES No Information ENCOUNTERS Encounter Location Date Diagnosis [facility] [address] [facility] [id number] [address] [place] [id number] Feb, Medicare annual wellness vis it, initial Z00.00 [place] [id number] [facility] [id number] [address] [place] [phone] Jan, [facility] [address] [facility] [id number] [address] [place] [id number] 22 Dec, 2017 Frequent headaches R51 and D egenerative disc disease at L5-S1 level M51.36 [facility] [address] [facility] [id number] [address] [place] [id number] Nov, [facility] [address] [place] [id number] [address] [place] [phone] Nov, Chronic intractable headache , unspecified headache type R51 [facility] [address] [place] [id number] [address] [place] [address] Nov, Chronic headaches R51 and BM I 45.0-49.9, adult Z68.42 [place] [address] [address] Nov, [place] [address] [address] Nov, Obesity, morbid E66.01 ; Unc omplicated asthma, unspecified asthma severity J45.909 ; Anxiety F41.9 ; Pure hyperglyceridemia E78.1 and Family history of diabetes mellitus Z83.3 [place] [address] [address] Oct, Bronchitis J40 [place] [address] [address] Oct, Chronic headaches R51 [place] [address] [address] Sep, [place] [address] [address] Sep, Chronic headaches R51 ; Othe r chronic pain G89.29 ; Anemia D64.9 and Obesity, morbid E66.01 [place] [address] [place] [id number] [address] [place] [phone] Aug, Acute suppurative otitis med ia of right ear without spontaneous rupture of tympanic membrane, recurrence not specified H66.001 [place] [address] [place] [id number] [address] [place] [id number] 11 Aug, 2017 Other chronic pain G89.29 [place] [address] [place] [id number] [place] [address] Jul, Degenerative disc disease at L5-S1 level M51.36 [facility] [address] [id number] [address] [place] [id number] 07 Jul, 2017 Other chronic pain G89.29 an d Sprain of deltoid ligament of left ankle, subsequent encounter S93.422D [facility] [address] [id number] [address] [place] [id number] 05 Jul, 2017 Degenerative disc disease at L5-S1 level M51.36 [facility] [address] [id number] [address] [place] [id number] Jun, [facility] [address] [id number] [address] [place] [phone] Jun, Degenerative disc disease at L5-S1 level M51.36 [facility] [address] [id number] [address] [place] [phone] Jun, [facility] [address] [id number] [address] [place] [phone] Jun, [facility] [address] [id number] [address] [place] [phone] Jun, [facility] [address] [id number] [address] [place] [phone] May, [facility] [address] [id number] [address] [place] [address] May, [facility] [address] [id number] [address] [place] [address] May, Rib pain on left side R07.81 [facility] [address] [id number] [address] [place] [address] Apr, Morbid obesity due to excess calories E66.01 [facility] [address] [id number] [address] [place] [address] 16 Apr, 2017 Gastroenteritis K52.9 [facility] [address] [id number] [address] [place] [address] Apr, Degenerative disc disease at L5-S1 level M51.36 [place] [address] [place] [id number] [address] [place] [address] March, Degenerative disc disease at L5-S1 level M51.36 [place] [address] [place] [id number] [address] [place] [address] March, Bipolar 1 disorder F31.9 ; A nemia D64.9 ; Hypopotassemia E87.6 ; Uncomplicated asthma, unspecified asthma severity J45.909 ; Anxiety F41.9 ; Chronic headaches R51 and Degenerative disc disease at L5-S1 level M51.36 [place] [address] [place] [id number] [place] [address] March, Degenerative disc disease at L5-S1 level M51.36 [place] [address] [address] March, Degenerative disc disease at L5-S1 level M51.36 [place] [address] [place] [id number] [address] [place] [address] March, Uncomplicated asthma, unspec ified asthma severity J45.909 ; Hypoxemia R09.02 ; Chronic headaches R51 and Degenerative disc disease at L5-S1 level M51.36 [place] [address] [place] [id number] [address] [place] [address] March, [place] [address] [place] [id number] [address] [place] [address] Feb, Acquired equinus deformity o f left foot M21.6X2 [place] [address] [facility] [id number] [address] [place] [address] Feb, Degenerative disc disease at L5-S1 level M51.36 [place] [address] [place] [id number] [address] [place] [id number] Feb, Degenerative disc disease at L5-S1 level M51.36 [place] [address] [place] [id number] [address] [place] [address] Jan, Degenerative disc disease at L5-S1 level M51.36 [facility] [address] [facility] [id number] [address] [place] [id number] Jan, Degenerative disc disease at L5-S1 level M51.36 [facility] [address] [facility] [id number] [address] [place] [address] Dec, Degenerative disc disease at L5-S1 level M51.36 [facility] [address] [facility] [id number] [address] [place] [id number] Dec, Overactive bladder N32.81 an d Degenerative disc disease at L5-S1 level M51.36 [facility] [address] [facility] [id number] [address] [place] [id number] Dec, Degenerative disc disease at L5-S1 level M51.36 [facility] [address] [facility] [id number] [address] [place] [id number] Dec, Degenerative disc disease at L5-S1 level M51.36 [facility] [address] [id number] [address] [place] [phone] Nov, [facility] [address] [facility] [id number] [address] [place] [id number] Nov, Chronic headaches R51 [facility] [address] [facility] [id number] [address] [place] [address] Nov, Degenerative disc disease at L5-S1 level M51.36 [facility] [address] [id number] [address] [place] [address] Nov, Left upper quadrant pain R10 .12 [facility] [address] [facility] [id number] [address] [place] [address] Nov, Degenerative disc disease at L5-S1 level M51.36 [facility] [address] [facility] [id number] [address] [place] [id number] Nov, Degenerative disc disease at L5-S1 level M51.36 [place] [address] [place] [id number] [place] [address] Nov, Degenerative disc disease at L5-S1 level M51.36 [place] [address] [address] Nov, Degenerative disc disease at L5-S1 level M51.36 [place] [address] [address] Nov, Degenerative disc disease at L5-S1 level M51.36 [place] [address] [place] [id number] [place] [address] Oct, Degenerative disc disease at L5-S1 level M51.36 [place] [address] [address] Sep, Degenerative disc disease at L5-S1 level M51.36 [place] [address] [address] Sep, Degenerative disc disease at L5-S1 level M51.36 ; Bipolar 1 disorder F31.9 ; Chronic headaches R51 ; Hypopotassemia E87.6 ; Uncomplicated asthma, unspecified asthma severity J45.909 ; Anxiety F41.9 ; Overactive bladder N32.81 and Anemia D64.9 [place] [address] [address] Sep, Degenerative disc disease at L5-S1 level M51.36 [place] [address] [address] Aug, [place] [address] [address] Aug, Degenerative disc disease at L5-S1 level M51.36 ; Chronic headaches R51 ; Bipolar 1 disorder F31.9 ; Overactive bladder N32.81 ; Anxiety F41.9 and Anemia D64.9 [place] [address] [address] Aug, Degenerative disc disease at L5-S1 level M51.36 [facility] [address] [facility] [id number] [address] [place] [address] 18 Aug, 2016 [facility] [address] [facility] [id number] [address] [place] [address] 14 Aug, 2016 [facility] [address] [place] [id number] [place] [address] 10 Aug, 2016 Degenerative disc disease at L5-S1 level M51.36 [facility] [address] [facility] [id number] [address] [place] [id number] 28 Jul, 2016 Degenerative disc disease at L5-S1 level M51.36 [facility] [address] [place] [id number] [place] [id number] 27 Jul, 2016 [facility] [address] [place] [id number] [place] [address] 23 Jul, 2016 [facility] [address] [address] 22 Jul, 2016 Degenerative disc disease at L5-S1 level M51.36 ; Pure hyperglyceridemia E78.1 ; Bipolar 1 disorder F31.9 ; Anemia D64.9 ; Overactive bladder N32.81 ; Hypopotassemia E87.6 ; Anxiety F41.9 ; Mild intermittent asthma without complication J45.20 and Chronic headaches R51 [facility] [address] [place] [id number] [address] [place] [id number] 15 Jul, 2016 [facility] [address] [place] [id number] [address] [place] [phone] 07 Jul, 2016 [facility] [address] [address] Jun, [facility] [address] [place] [id number] [place] [address] Jun, Bipolar 1 disorder F31.9 ; A nxiety F41.9 ; Overactive bladder N32.81 ; Chronic headaches R51 ; Degenerative disc disease at L5-S1 level M51.36 ; Hypopotassemia E87.6 ; Anemia D64.9 and Morbid obesity due to excess calories E66.01 [place] [address] [address] Jun, [place] [address] [address] May, Overactive bladder N32.81 [place] [address] [address] May, Bipolar 1 disorder F31.9 ; A nemia D64.9 ; Overactive bladder N32.81 ; Chronic headaches R51 ; Hypopotassemia E87.6 ; Degenerative disc disease at L5-S1 level M51.36 and Uncomplicated asthma, unspecified asthma severity J45.909 [place] [address] [address] May, [place] [address] [address] May, Chronic headaches R51 [place] [address] [address] Apr, Chronic headaches R51 [place] [address] [address] March, Chronic headaches R51 [place] [address] [address] March, [place] [address] [place] [id number] [place] [address] Feb, Chronic headaches R51 and De generative disc disease at L5-S1 level M51.36 [place] [address] [place] [id number] [place] [address] Feb, Hypopotassemia E87.6 ; Anemi a D64.9 ; Overactive bladder N32.81 ; Chronic headaches R51 and Degenerative disc disease at L5-S1 level M51.36 [place] [address] [facility] [id number] [address] [place] [id number] 07 Feb, 2016 Bipolar 1 disorder F31.9 ; O veractive bladder N32.81 and Anemia D64.9 [facility] [address] [facility] [id number] [address] [place] [id number] 06 Feb, 2016 Scabies B86 ; Bipolar 1 diso rder F31.9 ; Anemia D64.9 ; Overactive bladder N32.81 ; Chronic headaches R51 ; Degenerative disc disease at L5-S1 level M51.36 and Wellness examination Z00.00 [place] [address] [facility] [id number] [address] [place] [address] Feb, [place] [address] [facility] [id number] [address] [place] [phone] Oct, IMMUNIZATIONS No Known Immunizations SOCIAL HISTORY Never Assessed REASON FOR VISIT weight loss ed PLAN OF CARE VITAL SIGNS MEDICATIONS [...] interstem replaced 05/2016 Hospitalization History [facility]- Headache 12/18/2017
--- OUTSIDE RECORDS SUMMARY | 2019-11-27 06:46 | XMS REPORT ---
Author Author Tish HYLTON Organization [facility] Address [address] [place] [address] Care Team Providers Care Wig Maker Name Role Phone ANDRE HYLTON Unavailable PROBLEMS Type Condition ICD9-CM Code WKO27-XB Code Onset Dates Condition S tatus SNOMED Code Problem Hypopotassemia E87.6 Active 40430 004 Problem Uncomplicated asthma, unspecified asthma severity J45.909 Active 108088701 Problem Degenerative disc disease at L5-S1 level M51.36 Active 06199740 Problem Obesity, morbid E66.01 Active 2381 76788 Problem Other chronic pain G89.29 Active 8 7942026 Problem Acquired equinus deformity of left foot M21.6X2 Active 18882375 Problem Anxiety F41.9 Active 85658947 Problem Morbid obesity due to excess calories E66.01 Active 179973270 Problem Hypoxemia R09.02 Active 196875694 Problem Overactive bladder N32.81 Active 2 02385804 Problem Bipolar 1 disorder F31.9 Active 3 89305956 Problem Chronic headaches R51 Active 43 2719769 Problem Pure hyperglyceridemia E78.1 Active 485489800 Problem Anemia D64.9 Active 098689249 ALLERGIES No Information ENCOUNTERS Encounter Location Date Diagnosis [place] [address] [place] [id number] [address] [place] [phone] Feb, Medicare annual wellness vis it, initial Z00.00 ; Bipolar 1 disorder F31.9 ; Low back pain M54.5 and Other chronic pain G89.29 [facility] [address] [facility] [place] [id number] [address] [place] [phone] Jan, [facility] [address] [facility] [place] [id number] [address] [place] [phone] Dec, Frequent headaches R51 and D egenerative disc disease at L5-S1 level M51.36 [place] [address] [address] Nov, [facility] [address] [address] Nov, Chronic intractable headache , unspecified headache type R51 [facility] [address] [address] Nov, Chronic headaches R51 and BM I 45.0-49.9, adult Z68.42 [place] [address] [address] Nov, [place] [address] [address] Nov, Obesity, morbid E66.01 ; Unc omplicated asthma, unspecified asthma severity J45.909 ; Anxiety F41.9 ; Pure hyperglyceridemia E78.1 and Family history of diabetes mellitus Z83.3 [place] [address] [address] Oct, Bronchitis J40 [place] [address] [address] Oct, Chronic headaches R51 [place] [address] [address] Sep, [place] [address] [address] Sep, Chronic headaches R51 ; Othe r chronic pain G89.29 ; Anemia D64.9 and Obesity, morbid E66.01 [place] [address] [address] Aug, Acute suppurative otitis med ia of right ear without spontaneous rupture of tympanic membrane, recurrence not specified H66.001 [place] [address] [address] Aug, Other chronic pain G89.29 [place] [address] [id number] [address] [place] [id number] 18 Jul, 2017 Degenerative disc disease at L5-S1 level M51.36 [facility] [address] [id number] [address] [place] [id number] 07 Jul, 2017 Other chronic pain G89.29 an d Sprain of deltoid ligament of left ankle, subsequent encounter S93.422D [facility] [address] [id number] [address] [place] [id number] 05 Jul, 2017 Degenerative disc disease at L5-S1 level M51.36 [facility] [address] [id number] [address] [place] [phone] Jun, [facility] [address] [id number] [address] [place] [phone] Jun, Degenerative disc disease at L5-S1 level M51.36 [facility] [address] [id number] [address] [place] [phone] Jun, [facility] [address] [id number] [address] [place] [phone] Jun, [facility] [address] [id number] [address] [place] [phone] Jun, [facility] [address] [facility] [place] [id number] [address] [place] [phone] May, [facility] [address] [facility] [place] [id number] [address] [place] [phone] May, [facility] [address] [id number] [address] [place] [phone] May, Rib pain on left side R07.81 [facility] [address] [id number] [address] [place] [phone] Apr, Morbid obesity due to excess calories E66.01 [facility] [address] [id number] [address] [place] [phone] Apr, Gastroenteritis K52.9 [place] [address] [place] [id number] [address] [place] [phone] Apr, Degenerative disc disease at L5-S1 level M51.36 [place] [address] [place] [id number] [place] [address] March, Degenerative disc disease at L5-S1 level M51.36 [place] [address] [address] March, Bipolar 1 disorder F31.9 ; A nemia D64.9 ; Hypopotassemia E87.6 ; Uncomplicated asthma, unspecified asthma severity J45.909 ; Anxiety F41.9 ; Chronic headaches R51 and Degenerative disc disease at L5-S1 level M51.36 [place] [address] [address] March, Degenerative disc disease at L5-S1 level M51.36 [place] [address] [address] March, Degenerative disc disease at L5-S1 level M51.36 [place] [address] [address] March, Uncomplicated asthma, unspec ified asthma severity J45.909 ; Hypoxemia R09.02 ; Chronic headaches R51 and Degenerative disc disease at L5-S1 level M51.36 [place] [address] [place] [id number] [address] [place] [phone] March, [place] [address] [address] Feb, Acquired equinus deformity o f left foot M21.6X2 [place] [address] [address] Feb, Degenerative disc disease at L5-S1 level M51.36 [place] [address] [place] [id number] [address] [place] [phone] Feb, Degenerative disc disease at L5-S1 level M51.36 [facility] [address] [facility] [place] [id number] [address] [place] [phone] Jan, Degenerative disc disease at L5-S1 level M51.36 [facility] [address] [facility] [place] [id number] [address] [place] [phone] Jan, Degenerative disc disease at L5-S1 level M51.36 [facility] [address] [facility] [place] [id number] [address] [place] [id number] Dec, Degenerative disc disease at L5-S1 level M51.36 [facility] [address] [facility] [place] [id number] [address] [place] [phone] Dec, Overactive bladder N32.81 an d Degenerative disc disease at L5-S1 level M51.36 [facility] [address] [facility] [place] [id number] [address] [place] [phone] Dec, Degenerative disc disease at L5-S1 level M51.36 [facility] [address] [facility] [place] [id number] [address] [place] [id number] Dec, Degenerative disc disease at L5-S1 level M51.36 [facility] [address] [place] [id number] [address] [place] [phone] Nov, [facility] [address] [facility] [place] [id number] [address] [place] [phone] Nov, Chronic headaches R51 [facility] [address] [facility] [place] [id number] [address] [place] [id number] Nov, Degenerative disc disease at L5-S1 level M51.36 [facility] [address] [facility] [place] [id number] [address] [place] [phone] Nov, Left upper quadrant pain R10 .12 [facility] [address] [facility] [place] [id number] [address] [place] [id number] Nov, Degenerative disc disease at L5-S1 level M51.36 [facility] [address] [place] [id number] [address] [place] [phone] Nov, Degenerative disc disease at L5-S1 level M51.36 [facility] [address] [address] Nov, Degenerative disc disease at L5-S1 level M51.36 [facility] [address] [place] [id number] [place] [address] Nov, Degenerative disc disease at L5-S1 level M51.36 [facility] [address] [place] [id number] [place] [address] Nov, Degenerative disc disease at L5-S1 level M51.36 [place] [address] [address] Oct, Degenerative disc disease at L5-S1 level M51.36 [place] [address] [address] Sep, Degenerative disc disease at L5-S1 level M51.36 [place] [address] [address] Sep, Degenerative disc disease at L5-S1 level M51.36 ; Bipolar 1 disorder F31.9 ; Chronic headaches R51 ; Hypopotassemia E87.6 ; Uncomplicated asthma, unspecified asthma severity J45.909 ; Anxiety F41.9 ; Overactive bladder N32.81 and Anemia D64.9 [place] [address] [address] Sep, Degenerative disc disease at L5-S1 level M51.36 [facility] [address] [place] [id number] [address] [place] [phone] Aug, [place] [address] [address] Aug, Degenerative disc disease at L5-S1 level M51.36 ; Chronic headaches R51 ; Bipolar 1 disorder F31.9 ; Overactive bladder N32.81 ; Anxiety F41.9 and Anemia D64.9 [place] [address] [place] [address] 24 Aug, 2016 Degenerative disc disease at L5-S1 level M51.36 [facility] [address] [facility] [place] [id number] [address] [place] [phone] 18 Aug, 2016 [facility] [address] [facility] [place] [id number] [address] [place] [phone] 14 Aug, 2016 [facility] [address] [facility] [place] [id number] [address] [place] [phone] 10 Aug, 2016 Degenerative disc disease at L5-S1 level M51.36 [facility] [address] [facility] [place] [id number] [address] [place] [phone] 28 Jul, 2016 Degenerative disc disease at L5-S1 level M51.36 [facility] [address] [facility] [place] [id number] [address] [place] [phone] 27 Jul, 2016 [facility] [address] [place] [id number] [address] [place] [phone] 23 Jul, 2016 [facility] [address] [facility] [place] [id number] [address] [place] [phone] 22 Jul, 2016 Degenerative disc disease at L5-S1 level M51.36 ; Pure hyperglyceridemia E78.1 ; Bipolar 1 disorder F31.9 ; Anemia D64.9 ; Overactive bladder N32.81 ; Hypopotassemia E87.6 ; Anxiety F41.9 ; Mild intermittent asthma without complication J45.20 and Chronic headaches R51 [facility] [address] [facility] [place] [id number] [address] [place] [phone] 15 Jul, 2016 [facility] [address] [facility] [place] [id number] [address] [place] [phone] 07 Jul, 2016 [facility] [address] [facility] [place] [id number] [address] [place] [phone] Jun, [facility] [address] [facility] [place] [id number] [address] [place] [phone] Jun, Bipolar 1 disorder F31.9 ; A nxiety F41.9 ; Overactive bladder N32.81 ; Chronic headaches R51 ; Degenerative disc disease at L5-S1 level M51.36 ; Hypopotassemia E87.6 ; Anemia D64.9 and Morbid obesity due to excess calories E66.01 [place] [address] [place] [id number] [address] [place] [phone] Jun, [place] [address] [place] [id number] [address] [place] [phone] May, Overactive bladder N32.81 [place] [address] [place] [id number] [address] [place] [id number] May, Bipolar 1 disorder F31.9 ; A nemia D64.9 ; Overactive bladder N32.81 ; Chronic headaches R51 ; Hypopotassemia E87.6 ; Degenerative disc disease at L5-S1 level M51.36 and Uncomplicated asthma, unspecified asthma severity J45.909 [place] [address] [address] May, [place] [address] [place] [id number] [place] [address] May, Chronic headaches R51 [place] [address] [address] Apr, Chronic headaches R51 [place] [address] [place] [id number] [address] [place] [phone] March, Chronic headaches R51 [place] [address] [place] [id number] [address] [place] [phone] March, [place] [address] [place] [id number] [address] [place] [phone] Feb, Chronic headaches R51 and De generative disc disease at L5-S1 level M51.36 [place] [address] [place] [id number] [address] [place] [phone] Feb, Hypopotassemia E87.6 ; Anemi a D64.9 ; Overactive bladder N32.81 ; Chronic headaches R51 and Degenerative disc disease at L5-S1 level M51.36 [facility] [address] [facility] [place] [id number] [address] [place] [id number] 07 Feb, 2016 Bipolar 1 disorder F31.9 ; A nemia D64.9 and Overactive bladder N32.81 [place] [address] [facility] [place] [id number] [address] [place] [id number] 06 Feb, 2016 Scabies B86 ; Bipolar 1 diso rder F31.9 ; Anemia D64.9 ; Overactive bladder N32.81 ; Chronic headaches R51 ; Degenerative disc disease at L5-S1 level M51.36 and Wellness examination Z00.00 [place] [address] [place] [id number] [address] [place] [id number] 17 Feb, 2009 [place] [address] [place] [id number] [address] [place] [phone] Oct, IMMUNIZATIONS No Known Immunizations SOCIAL HISTORY Never Assessed REASON FOR VISIT FYI only PLAN OF CARE VITAL SIGNS MEDICATIONS No Known Medications RESULTS No Results PROCEDURES No Known [...] interstem replaced 05/2016 Hospitalization History [facility]- Headache 12/18/2017
--- OUTSIDE RECORDS SUMMARY | 2019-11-27 06:47 | XMS REPORT ---
Author Author Tish MALCOLM Organization [facility] Address [address] [place] [address] Care Team Providers Care Freight Traffic Consultant Name Role Phone CHARIS MALCOLM Unavailable PROBLEMS Type Condition ICD9-CM Code [id number] Code Onset Dates Condition S tatus SNOMED Code Problem Hypopotassemia E87.6 Active 76651 004 Problem Uncomplicated asthma, unspecified asthma severity J45.909 Active 949680906 Problem Degenerative disc disease at L5-S1 level M51.36 Active 97265262 Problem Obesity, morbid E66.01 Active 2381 77635 Problem Other chronic pain G89.29 Active 8 9797933 Problem Acquired equinus deformity of left foot M21.6X2 Active 43675462 Problem Anxiety F41.9 Active 77539593 Problem Morbid obesity due to excess calories E66.01 Active 388046661 Problem Hypoxemia R09.02 Active 864657171 Problem Overactive bladder N32.81 Active 2 39686712 Problem Bipolar 1 disorder F31.9 Active 3 20560614 Problem Chronic headaches R51 Active 43 3196915 Problem Pure hyperglyceridemia E78.1 Active 856432061 Problem Anemia D64.9 Active [id number] ALLERGIES No Information ENCOUNTERS Encounter Location Date Diagnosis [facility] [address] [facility] [id number] [address] [place] [phone] Apr, [facility] [address] [facility] [id number] [address] [place] [phone] Apr, [facility] [address] [facility] [id number] [address] [place] [phone] March, [facility] [address] [facility] [id number] [address] [place] [phone] March, [facility] [address] [facility] [id number] [address] [place] [phone] Feb, Medicare annual wellness vis it, initial Z00.00 ; Bipolar 1 disorder F31.9 ; Low back pain M54.5 and Other chronic pain G89.29 [place] [address] [place] [id number] [place] [phone] Jan, [place] [address] [place] [id number] [place] [phone] Dec, Frequent headaches R51 and D egenerative disc disease at L5-S1 level M51.36 [place] [address] [place] [id number] [place] [phone] Nov, [facility] [address] [address] Nov, Chronic intractable headache , unspecified headache type R51 [facility] [address] [place] [id number] [place] [phone] Nov, Chronic headaches R51 and BM I 45.0-49.9, adult Z68.42 [place] [address] [address] Nov, [place] [address] [address] Nov, Obesity, morbid E66.01 ; Unc omplicated asthma, unspecified asthma severity J45.909 ; Anxiety F41.9 ; Pure hyperglyceridemia E78.1 and Family history of diabetes mellitus Z83.3 [place] [address] [address] Oct, Bronchitis J40 [place] [address] [place] [id number] [place] [phone] Oct, Chronic headaches R51 [place] [address] [place] [id number] [place] [phone] Sep, [place] [address] [place] [id number] [place] [phone] Sep, Chronic headaches R51 ; Othe r chronic pain G89.29 ; Anemia D64.9 and Obesity, morbid E66.01 [facility] [address] [id number] [address] [place] [phone] Aug, Acute suppurative otitis med ia of right ear without spontaneous rupture of tympanic membrane, recurrence not specified H66.001 [facility] [address] [id number] [address] [place] [phone] Aug, Other chronic pain G89.29 [facility] [address] [id number] [address] [place] [phone] 18 Jul, 2017 Degenerative disc disease at L5-S1 level M51.36 [facility] [address] [id number] [address] [place] [phone] Jul, Other chronic pain G89.29 an d Sprain of deltoid ligament of left ankle, subsequent encounter S93.422D [facility] [address] [id number] [address] [place] [phone] Jul, Degenerative disc disease at L5-S1 level M51.36 [facility] [address] [id number] [address] [place] [phone] Jun, [facility] [address] [id number] [address] [place] [phone] Jun, Degenerative disc disease at L5-S1 level M51.36 [facility] [address] [id number] [address] [place] [phone] Jun, [facility] [address] [id number] [address] [place] [phone] Jun, [facility] [address] [id number] [address] [place] [phone] Jun, [facility] [address] [id number] [address] [place] [address] May, [facility] [address] [id number] [address] [place] [phone] May, [place] [id number] [place] [address] May, Rib pain on left side R07.81 [place] [address] [place] [id number] [place] [address] Apr, Morbid obesity due to excess calories E66.01 [place] [address] [place] [id number] [address] [place] [phone] Apr, Gastroenteritis K52.9 [place] [address] [place] [id number] [place] [address] Apr, Degenerative disc disease at L5-S1 level M51.36 [place] [address] [address] March, Degenerative disc disease at L5-S1 level M51.36 [place] [address] [address] March, Bipolar 1 disorder F31.9 ; A nemia D64.9 ; Hypopotassemia E87.6 ; Uncomplicated asthma, unspecified asthma severity J45.909 ; Anxiety F41.9 ; Chronic headaches R51 and Degenerative disc disease at L5-S1 level M51.36 [place] [address] [place] [id number] [place] [phone] March, Degenerative disc disease at L5-S1 level M51.36 [place] [address] [place] [id number] [place] [address] March, Degenerative disc disease at L5-S1 level M51.36 [place] [address] [place] [id number] [place] [address] March, Uncomplicated asthma, unspec ified asthma severity J45.909 ; Hypoxemia R09.02 ; Chronic headaches R51 and Degenerative disc disease at L5-S1 level M51.36 [place] [address] [place] [id number] [place] [address] March, [place] [address] [id number] [place] [phone] Feb, Acquired equinus deformity o f left foot M21.6X2 [facility] [address] [place] [id number] [place] [phone] Feb, Degenerative disc disease at L5-S1 level M51.36 [facility] [address] [place] [id number] [place] [phone] Feb, Degenerative disc disease at L5-S1 level M51.36 [facility] [address] [place] [id number] [place] [phone] Jan, Degenerative disc disease at L5-S1 level M51.36 [facility] [address] [place] [id number] [place] [address] Jan, Degenerative disc disease at L5-S1 level M51.36 [place] [address] [address] Dec, Degenerative disc disease at L5-S1 level M51.36 [facility] [address] [place] [id number] [place] [phone] Dec, Overactive bladder N32.81 an d Degenerative disc disease at L5-S1 level M51.36 [facility] [address] [place] [id number] [place] [phone] Dec, Degenerative disc disease at L5-S1 level M51.36 [facility] [address] [place] [id number] [address] [place] [address] Dec, Degenerative disc disease at L5-S1 level M51.36 [facility] [address] [place] [id number] [place] [phone] Nov, [facility] [address] [place] [id number] [place] [phone] Nov, Chronic headaches R51 [facility] [address] [place] [id number] [place] [phone] Nov, Degenerative disc disease at L5-S1 level M51.36 [facility] [address] [place] [id number] [place] [phone] Nov, Left upper quadrant pain R10 .12 [facility] [address] [place] [id number] [place] [phone] Nov, Degenerative disc disease at L5-S1 level M51.36 [facility] [address] [place] [id number] [place] [address] Nov, Degenerative disc disease at L5-S1 level M51.36 [facility] [address] [place] [id number] [place] [phone] Nov, Degenerative disc disease at L5-S1 level M51.36 [place] [address] [place] [id number] [place] [phone] Nov, Degenerative disc disease at L5-S1 level M51.36 [place] [address] [address] Nov, Degenerative disc disease at L5-S1 level M51.36 [place] [address] [address] Oct, Degenerative disc disease at L5-S1 level M51.36 [place] [address] [address] Sep, Degenerative disc disease at L5-S1 level M51.36 [place] [address] [address] Sep, Degenerative disc disease at L5-S1 level M51.36 ; Bipolar 1 disorder F31.9 ; Chronic headaches R51 ; Hypopotassemia E87.6 ; Uncomplicated asthma, unspecified asthma severity J45.909 ; Anxiety F41.9 ; Overactive bladder N32.81 and Anemia D64.9 [place] [address] [place] [id number] [place] [address] Sep, Degenerative disc disease at L5-S1 level M51.36 [facility] [address] [facility] [id number] [address] [place] [phone] Aug, [facility] [address] [place] [id number] [place] [phone] Aug, Degenerative disc disease at L5-S1 level M51.36 ; Chronic headaches R51 ; Bipolar 1 disorder F31.9 ; Overactive bladder N32.81 ; Anxiety F41.9 and Anemia D64.9 [facility] [address] [facility] [id number] [address] [place] [id number] 24 Aug, 2016 Degenerative disc disease at L5-S1 level M51.36 [facility] [address] [facility] [id number] [address] [place] [phone] 18 Aug, 2016 [facility] [address] [facility] [id number] [place] [phone] 14 Aug, 2016 [facility] [address] [place] [id number] [place] [phone] 10 Aug, 2016 Degenerative disc disease at L5-S1 level M51.36 [facility] [address] [facility] [id number] [address] [place] [phone] 28 Jul, 2016 Degenerative disc disease at L5-S1 level M51.36 [facility] [address] [facility] [id number] [address] [place] [phone] 27 Jul, 2016 [facility] [address] [place] [id number] [address] [place] [phone] 23 Jul, 2016 [facility] [address] [facility] [id number] [address] [place] [phone] 22 Jul, 2016 Degenerative disc disease at L5-S1 level M51.36 ; Pure hyperglyceridemia E78.1 ; Bipolar 1 disorder F31.9 ; Anemia D64.9 ; Overactive bladder N32.81 ; Hypopotassemia E87.6 ; Anxiety F41.9 ; Mild intermittent asthma without complication J45.20 and Chronic headaches R51 [facility] [address] [facility] [id number] [address] [place] [id number] 15 Jul, 2016 [facility] [address] [facility] [id number] [address] [place] [phone] Jul, [facility] [address] [facility] [id number] [address] [place] [phone] Jun, [facility] [address] [facility] [id number] [address] [place] [phone] Jun, Bipolar 1 disorder F31.9 ; A nxiety F41.9 ; Overactive bladder N32.81 ; Chronic headaches R51 ; Degenerative disc disease at L5-S1 level M51.36 ; Hypopotassemia E87.6 ; Anemia D64.9 and Morbid obesity due to excess calories E66.01 [facility] [address] [facility] [id number] [address] [place] [phone] Jun, [facility] [address] [facility] [id number] [address] [place] [address] May, Overactive bladder N32.81 [facility] [address] [facility] [id number] [address] [place] [address] May, Bipolar 1 disorder F31.9 ; A nemia D64.9 ; Overactive bladder N32.81 ; Chronic headaches R51 ; Hypopotassemia E87.6 ; Degenerative disc disease at L5-S1 level M51.36 and Uncomplicated asthma, unspecified asthma severity J45.909 [facility] [address] [facility] [id number] [address] [place] [address] May, [facility] [address] [facility] [id number] [address] [place] [phone] May, Chronic headaches R51 [facility] [address] [facility] [id number] [address] [place] [address] Apr, Chronic headaches R51 [facility] [address] [facility] [id number] [address] [place] [phone] March, Chronic headaches R51 [facility] [address] [facility] [id number] [address] [place] [phone] March, [place] [address] [place] [id number] [address] [place] [address] Feb, Chronic headaches R51 and De generative disc disease at L5-S1 level M51.36 [place] [id number] [place] [address] Feb, Hypopotassemia E87.6 ; Anemi a D64.9 ; Overactive bladder N32.81 ; Chronic headaches R51 and Degenerative disc disease at L5-S1 level M51.36 [place] [address] [place] [id number] [place] [address] Feb, Bipolar 1 disorder F31.9 ; O veractive bladder N32.81 and Anemia D64.9 [place] [address] [place] [id number] [place] [address] Feb, Scabies B86 ; Bipolar 1 diso rder F31.9 ; Anemia D64.9 ; Overactive bladder N32.81 ; Chronic headaches R51 ; Degenerative disc disease at L5-S1 level M51.36 and Wellness examination Z00.00 [place] [address] [place] [id number] [place] [address] Feb, [place] [address] [place] [id number] [address] [place] [address] Oct, IMMUNIZATIONS No Known Immunizations SOCIAL HISTORY Never Assessed REASON FOR VISIT Refill request PLAN OF CARE VITAL SIGNS MEDICATIONS Medication Instructions Dosage Frequency Start Date End Date Duration S tatus Topamax 100 MG Orally Twice a day [...] interstem replaced 05/2016 Hospitalization History [facility]- Headache 12/18/2017
--- OUTSIDE RECORDS SUMMARY | 2019-11-27 06:47 | XMS REPORT ---
Author Author Tish MALCOLM Organization [facility] Address [address] [place] [address] Care Team Providers Care Promotions Specialist Name Role Phone CHARIS MALCOLM Unavailable PROBLEMS Type Condition ICD9-CM Code VAD24-FG Code Onset Dates Condition S tatus SNOMED Code Problem Anxiety F41.9 Active 53015223 Problem Hypoxemia R09.02 Active 843397438 Problem Acquired equinus deformity of left foot M21.6X2 Active 76030346 Problem Chronic fatigue R53.82 Active 8422 9001 Problem Moderate persistent asthma with exacerbation J45.4 1 Active 424621876 Problem Other chronic pain G89.29 Active 8 4182698 Problem Morbid obesity due to excess calories E66.01 Active 741645572 Problem Unsteady gait R26.81 Active 828809 08 Problem Obesity, morbid E66.01 Active 2381 53492 Problem Pure hyperglyceridemia E78.1 Active 617356895 Problem Overactive bladder N32.81 Active 2 15348426 Problem Anemia D64.9 Active 876482812 Problem Hypopotassemia E87.6 Active 99718 004 Problem Bipolar 1 disorder F31.9 Active 3 90245967 Problem Degenerative disc disease at L5-S1 level M51.36 Active 13285160 Problem Chronic headaches R51 Active 43 1646921 Problem Uncomplicated asthma, unspecified asthma severity J45.909 Active 894065901 ALLERGIES No Information ENCOUNTERS Encounter Location Date Diagnosis [facility] [place] [address] [facility] [id number] [address] [place] [phone] May, [facility] [place] [address] [facility] [id number] [address] [place] [phone] Apr, [facility] [address] [facility] [id number] [address] [place] [phone] Apr, Unsteady gait R26.81 ; Chron ic fatigue R53.82 ; SOB (shortness of breath) R06.02 and Moderate persistent asthma with exacerbation J45.41 [facility] [place] [address] [id number] [address] [place] [address] Apr, [facility] [address] [facility] [id number] [address] [place] [phone] 05 Apr, 2018 Medicare annual wellness vis it, initial Z00.00 [facility] [place] [address] [facility] [id number] [address] [place] [id number] 10 Mar, 2018 [facility] [place] [address] [id number] [address] [place] [phone] March, [place] [address] [address] [facility] [id number] [address] [place] [phone] 11 Feb, 2018 Medicare annual wellness vis it, initial Z00.00 ; Bipolar 1 disorder F31.9 ; Low back pain M54.5 and Other chronic pain G89.29 [place] [address] [address] [facility] [id number] [address] [place] [phone] Jan, [facility] [address] [facility] [id number] [address] [place] [phone] Dec, Frequent headaches R51 and D egenerative disc disease at L5-S1 level M51.36 [place] [address] [address] [facility] [id number] [address] [place] [phone] Nov, [facility] [address] [facility] [id number] [address] [place] [phone] Nov, Chronic intractable headache , unspecified headache type R51 [facility] [address] [facility] [id number] [address] [place] [phone] Nov, Chronic headaches R51 and BM I 45.0-49.9, adult Z68.42 [facility] [place] [address] [facility] [id number] [address] [place] [phone] Nov, [facility] [address] [facility] [id number] [address] [place] [phone] 04 Minor, 2018 Obesity, morbid E66.01 ; [facility] omplicated asthma, unspecified asthma severity J45.909 ; Anxiety F41.9 ; Pure hyperglyceridemia E78.1 and Family history of diabetes mellitus Z83.3 [place] [address] [address] Oct, Bronchitis J40 [place] [address] [address] Oct, Chronic headaches R51 [place] [address] [address] Sep, [place] [address] [address] Sep, Chronic headaches R51 ; Othe r chronic pain G89.29 ; Anemia D64.9 and Obesity, morbid E66.01 [place] [address] [address] Aug, Acute suppurative otitis med ia of right ear without spontaneous rupture of tympanic membrane, recurrence not specified H66.001 [place] [address] [address] 11 Aug, 2017 Other chronic pain G89.29 [place] [address] [address] 18 Jul, 2017 Degenerative disc disease at L5-S1 level M51.36 [place] [address] [address] 07 Jul, 2017 Other chronic pain G89.29 an d Sprain of deltoid ligament of left ankle, subsequent encounter S93.422D [place] [address] [address] 05 Jul, 2017 Degenerative disc disease at L5-S1 level M51.36 [place] [address] [address] [place] [id number] [address] [place] [phone] Jun, [place] [address] [address] Jun, Degenerative disc disease at L5-S1 level M51.36 [facility] [place] [address] [facility] [id number] [address] [place] [phone] Jun, [facility] [place] [address] [facility] [id number] [address] [place] [phone] Jun, [facility] [place] [address] [facility] [id number] [address] [place] [phone] Jun, [facility] [place] [address] [id number] [address] [place] [phone] May, [facility] [place] [address] [place] [id number] [address] [place] [phone] May, [facility] [place] [address] [place] [id number] [address] [place] [address] May, Rib pain on left side R07.81 [facility] [place] [address] [place] [id number] [address] [place] [phone] Apr, Morbid obesity due to excess calories E66.01 [facility] [place] [address] [place] [id number] [address] [place] [phone] Apr, Gastroenteritis K52.9 [facility] [address] [place] [id number] [address] [place] [phone] Apr, Degenerative disc disease at L5-S1 level M51.36 [facility] [place] [address] [facility] [id number] [address] [place] [address] March, Degenerative disc disease at L5-S1 level M51.36 [facility] [address] [facility] [id number] [address] [place] [phone] March, Bipolar 1 disorder F31.9 ; A nemia D64.9 ; Hypopotassemia E87.6 ; Uncomplicated asthma, unspecified asthma severity J45.909 ; Anxiety F41.9 ; Chronic headaches R51 and Degenerative disc disease at L5-S1 level M51.36 [facility] [place] [address] [address] March, Degenerative disc disease at L5-S1 level M51.36 [facility] [place] [address] [address] March, Degenerative disc disease at L5-S1 level M51.36 [place] [address] [address] March, Uncomplicated asthma, unspec ified asthma severity J45.909 ; Hypoxemia R09.02 ; Chronic headaches R51 and Degenerative disc disease at L5-S1 level M51.36 [place] [address] [address] March, [place] [address] [address] Feb, Acquired equinus deformity o f left foot M21.6X2 [place] [address] [address] Feb, Degenerative disc disease at L5-S1 level M51.36 [place] [address] [address] Feb, Degenerative disc disease at L5-S1 level M51.36 [place] [address] [address] Jan, Degenerative disc disease at L5-S1 level M51.36 [place] [address] [address] Jan, Degenerative disc disease at L5-S1 level M51.36 [facility] [place] [address] [address] Dec, Degenerative disc disease at L5-S1 level M51.36 [place] [address] [address] [place] [id number] [address] [place] [address] Dec, Overactive bladder N32.81 an d Degenerative disc disease at L5-S1 level M51.36 [place] [address] [id number] [address] [place] [address] Dec, Degenerative disc disease at L5-S1 level M51.36 [facility] [place] [address] [facility] [id number] [address] [place] [address] Dec, Degenerative disc disease at L5-S1 level M51.36 [facility] [place] [address] [id number] [address] [place] [phone] Nov, [facility] [place] [address] [id number] [address] [place] [phone] Nov, Chronic headaches R51 [facility] [place] [address] [id number] [address] [place] [address] Nov, Degenerative disc disease at L5-S1 level M51.36 [facility] [place] [address] [facility] [id number] [address] [place] [phone] Nov, Left upper quadrant pain R10 .12 [facility] [place] [address] [id number] [address] [place] [id number] Nov, Degenerative disc disease at L5-S1 level M51.36 [facility] [place] [address] [facility] [id number] [address] [place] [phone] Nov, Degenerative disc disease at L5-S1 level M51.36 [facility] [address] [facility] [id number] [address] [place] [phone] Nov, Degenerative disc disease at L5-S1 level M51.36 [facility] [address] [facility] [id number] [address] [place] [phone] Nov, Degenerative disc disease at L5-S1 level M51.36 [facility] [address] [facility] [id number] [address] [place] [phone] Nov, Degenerative disc disease at L5-S1 level M51.36 [facility] [place] [address] [facility] [id number] [address] [place] [phone] Oct, Degenerative disc disease at L5-S1 level M51.36 [facility] [address] [place] [id number] [address] [place] [phone] Sep, Degenerative disc disease at L5-S1 level M51.36 [facility] [address] [place] [id number] [place] [address] Sep, Degenerative disc disease at L5-S1 level M51.36 ; Bipolar 1 disorder F31.9 ; Chronic headaches R51 ; Hypopotassemia E87.6 ; Uncomplicated asthma, unspecified asthma severity J45.909 ; Anxiety F41.9 ; Overactive bladder N32.81 and Anemia D64.9 [facility] [place] [address] [address] Sep, Degenerative disc disease at L5-S1 level M51.36 [facility] [place] [address] [address] Aug, [facility] [place] [address] [address] Aug, Degenerative disc disease at L5-S1 level M51.36 ; Chronic headaches R51 ; Bipolar 1 disorder F31.9 ; Overactive bladder N32.81 ; Anxiety F41.9 and Anemia D64.9 [facility] [place] [address] [place] [id number] [address] [place] [phone] Aug, Degenerative disc disease at L5-S1 level M51.36 [facility] [place] [address] [place] [id number] [address] [place] [phone] 18 Aug, 2016 [facility] [place] [address] [place] [id number] [address] [place] [phone] 14 Aug, 2016 [facility] [place] [address] [address] 10 Aug, 2016 Degenerative disc disease at L5-S1 level M51.36 [facility] [place] [address] [place] [id number] [address] [place] [phone] 28 Jul, 2016 Degenerative disc disease at L5-S1 level M51.36 [facility] [place] [address] [facility] [id number] [address] [place] [phone] 27 Jul, 2016 [place] [address] [address] Jul, [place] [address] [facility] [id number] [place] [address] Jul, Degenerative disc disease at L5-S1 level M51.36 ; Pure hyperglyceridemia E78.1 ; Bipolar 1 disorder F31.9 ; Anemia D64.9 ; Overactive bladder N32.81 ; Hypopotassemia E87.6 ; Anxiety F41.9 ; Mild intermittent asthma without complication J45.20 and Chronic headaches R51 [place] [address] [place] [id number] [place] [address] 15 Jul, 2016 [place] [address] [address] Jul, [place] [address] [address] [place] [id number] [address] [place] [phone] Jun, [place] [address] [address] Jun, Bipolar 1 disorder F31.9 ; A nxiety F41.9 ; Overactive bladder N32.81 ; Chronic headaches R51 ; Degenerative disc disease at L5-S1 level M51.36 ; Hypopotassemia E87.6 ; Anemia D64.9 and Morbid obesity due to excess calories E66.01 [facility] [place] [address] [facility] [id number] [address] [place] [phone] Jun, [place] [address] [place] [id number] [address] [place] [address] May, Overactive bladder N32.81 [facility] [place] [address] [facility] [id number] [address] [place] [address] May, Bipolar 1 disorder F31.9 ; A nemia D64.9 ; Overactive bladder N32.81 ; Chronic headaches R51 ; Hypopotassemia E87.6 ; Degenerative disc disease at L5-S1 level M51.36 and Uncomplicated asthma, unspecified asthma severity J45.909 [place] [address] [address] May, [facility] [place] [address] [place] [id number] [address] [place] [address] May, Chronic headaches R51 [place] [address] [place] [id number] [place] [address] Apr, Chronic headaches R51 [place] [address] [place] [id number] [place] [address] March, Chronic headaches R51 [place] [address] [address] March, [place] [address] [address] Feb, Chronic headaches R51 and De generative disc disease at L5-S1 level M51.36 [place] [address] [address] Feb, Hypopotassemia E87.6 ; Anemi a D64.9 ; Overactive bladder N32.81 ; Chronic headaches R51 and Degenerative disc disease at L5-S1 level M51.36 [place] [address] [address] Feb, Bipolar 1 disorder F31.9 ; A nemia D64.9 and Overactive bladder N32.81 [place] [address] [address] Feb, Scabies B86 ; Bipolar 1 diso rder F31.9 ; Anemia D64.9 ; Overactive bladder N32.81 ; Chronic headaches R51 ; Degenerative disc disease at L5-S1 level M51.36 and Wellness examination Z00.00 [place] [address] [address] [place] [id number] [address] [place] [phone] Feb, [place] [address] [address] [facility] [id number] [address] [place] [address] Oct, IMMUNIZATIONS No Known Immunizations SOCIAL HISTORY Never Assessed REASON FOR VISIT Headache PLAN OF CARE VITAL SIGNS MEDICATIONS Unknown [...] interstem replaced 05/2016 Hospitalization History [facility]- Headache 12/18/2017
--- OUTSIDE RECORDS SUMMARY | 2019-11-27 06:47 | XMS REPORT ---
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 Cementer Name Role Phone GIRMA MOFFETT Unavailable PROBLEMS Type Condition ICD9-CM Code NXR69-XR Code Onset Dates Condition S tatus SNOMED Code Problem Hypopotassemia E87.6 Active 57669 004 Problem Uncomplicated asthma, unspecified asthma severity J45.909 Active 861572072 Problem Degenerative disc disease at L5-S1 level M51.36 Active 14154975 Problem Obesity, morbid E66.01 Active 2381 37482 Problem Other chronic pain G89.29 Active 8 8399420 Problem Acquired equinus deformity of left foot M21.6X2 Active 32430044 Problem Anxiety F41.9 Active 16178420 Problem Morbid obesity due to excess calories E66.01 Active 330937657 Problem Hypoxemia R09.02 Active 183285709 Problem Overactive bladder N32.81 Active 2 29804089 Problem Bipolar 1 disorder F31.9 Active 3 91925918 Problem Chronic headaches R51 Active 43 7715338 Problem Pure hyperglyceridemia E78.1 Active 860118076 Problem Anemia D64.9 Active 623550752 ALLERGIES Substance Reaction Event Type Date Status Sulfamethoxazole-Trimethoprim Unknown Drug Allergy Jul, 201 7 Active Penicillin V Potassium Unknown Drug Allergy Jul, Activ e Morphine Sulfate anaphylaxis Drug Allergy Jul, Active Mobic fall asleep and sleep walk Drug Allergy Jul, A ctive Codeine Sulfate Unknown Drug Allergy Jul, Active Amoxicillin rash Drug Allergy Jul, Active paper tape rash Non Drug Allergy Jul, Active pink dye, purple dye sick to stomach Non Drug Allergy Jul, Active ENCOUNTERS Encounter Location Date Diagnosis [facility] [address] [facility] [id number] [address], [place] [address] Feb, Medicare annual wellness vis it, initial Z00.00 ; Bipolar 1 disorder F31.9 ; Low back pain M54.5 and Other chronic pain G89.29 [place] [address] [address] Jan, [place] [address] [address] Dec, Frequent headaches R51 and D egenerative disc disease at L5-S1 level M51.36 [place] [address] [address] Nov, [facility] [place] [address] [address] Nov, Chronic intractable headache , unspecified headache type R51 [facility] [place] [address] [address] Nov, Chronic headaches R51 and BM I 45.0-49.9, adult Z68.42 [place] [address] [address] Nov, [place] [address] [address] Nov, Obesity, morbid E66.01 ; Unc omplicated asthma, unspecified asthma severity J45.909 ; Anxiety F41.9 ; Pure hyperglyceridemia E78.1 and Family history of diabetes mellitus Z83.3 [place] [address] [address] Oct, Bronchitis J40 [place] [address] [address] Oct, Chronic headaches R51 [place] [address] [address] Sep, [place] [address] [address] Sep, Chronic headaches R51 ; Othe r chronic pain G89.29 ; Anemia D64.9 and Obesity, morbid E66.01 [facility] [address] [id number] [address] [place] [phone] Aug, Acute suppurative otitis med ia of right ear without spontaneous rupture of tympanic membrane, recurrence not specified H66.001 [facility] [address] [id number] [address] [place] [address] Aug, Other chronic pain G89.29 [facility] [address] [id number] [address] [place] [id number] 18 Jul, 2017 Degenerative disc disease at L5-S1 level M51.36 [facility] [address] [id number] [address] [place] [phone] 07 Jul, 2017 Other chronic pain G89.29 an d Sprain of deltoid ligament of left ankle, subsequent encounter S93.422D [facility] [address] [id number] [address] [place] [address] Jul, Degenerative disc disease at L5-S1 level M51.36 [facility] [address] [id number] [address] [place] [address] Jun, [facility] [address] [id number] [address] [place] [id number] Jun, Degenerative disc disease at L5-S1 level M51.36 [facility] [address] [id number] [address] [place] [phone] Jun, [facility] [address] [id number] [address] [place] [phone] Jun, [facility] [address] [id number] [address] [place] [id number] Jun, [facility] [address] [id number] [address] [place] [phone] May, [facility] [address] [id number] [address] [place] [phone] May, [facility] [address] [id number] [address] [place] [address] May, Rib pain on left side R07.81 [place] [address] [place] [address] Apr, Morbid obesity due to excess calories E66.01 [place] [address] [place] [id number] [address] [place] [address] Apr, Gastroenteritis K52.9 [place] [address] [address] Apr, Degenerative disc disease at L5-S1 level M51.36 [place] [address] [address] March, Degenerative disc disease at L5-S1 level M51.36 [place] [address] [address] March, Bipolar 1 disorder F31.9 ; A nemia D64.9 ; Hypopotassemia E87.6 ; Uncomplicated asthma, unspecified asthma severity J45.909 ; Anxiety F41.9 ; Chronic headaches R51 and Degenerative disc disease at L5-S1 level M51.36 [place] [address] [address] March, Degenerative disc disease at L5-S1 level M51.36 [place] [address] [place] [id number] [address] [place] [address] March, Degenerative disc disease at L5-S1 level M51.36 [place] [address] [place] [id number] [address] [place] [address] March, Uncomplicated asthma, unspec ified asthma severity J45.909 ; Hypoxemia R09.02 ; Chronic headaches R51 and Degenerative disc disease at L5-S1 level M51.36 [place] [address] [place] [id number] [address] [place] [address] March, [place] [address] [place] [id number] [place] [address] Feb, Acquired equinus deformity o f left foot M21.6X2 [facility] [address] [facility] [id number] [address] [place] [address] Feb, Degenerative disc disease at L5-S1 level M51.36 [facility] [address] [facility] [id number] [address] [place] [address] Feb, Degenerative disc disease at L5-S1 level M51.36 [facility] [address] [facility] [id number] [address] [place] [address] Jan, Degenerative disc disease at L5-S1 level M51.36 [facility] [address] [address] Jan, Degenerative disc disease at L5-S1 level M51.36 [facility] [address] [address] Dec, Degenerative disc disease at L5-S1 level M51.36 [facility] [address] [place] [id number] [address] [place] [address] Dec, Overactive bladder N32.81 an d Degenerative disc disease at L5-S1 level M51.36 [facility] [address] [place] [id number] [address] [place] [address] Dec, Degenerative disc disease at L5-S1 level M51.36 [facility] [address] [place] [id number] [address] [place] [id number] Dec, Degenerative disc disease at L5-S1 level M51.36 [facility] [address] [facility] [id number] [address] [place] [phone] Nov, [facility] [address] [place] [id number] [place] [address] Nov, Chronic headaches R51 [facility] [address] [facility] [id number] [address] [place] [address] Nov, Degenerative disc disease at L5-S1 level M51.36 [facility] [address] [address] Nov, Left upper quadrant pain R10 .12 [place] [address] [address] Nov, Degenerative disc disease at L5-S1 level M51.36 [place] [address] [address] Nov, Degenerative disc disease at L5-S1 level M51.36 [place] [address] [address] Nov, Degenerative disc disease at L5-S1 level M51.36 [place] [address] [address] Nov, Degenerative disc disease at L5-S1 level M51.36 [place] [address] [address] Nov, Degenerative disc disease at L5-S1 level M51.36 [place] [address] [address] Oct, Degenerative disc disease at L5-S1 level M51.36 [place] [address] [address] Sep, Degenerative disc disease at L5-S1 level M51.36 [place] [address] [address] Sep, Degenerative disc disease at L5-S1 level M51.36 ; Bipolar 1 disorder F31.9 ; Chronic headaches R51 ; Hypopotassemia E87.6 ; Uncomplicated asthma, unspecified asthma severity J45.909 ; Anxiety F41.9 ; Overactive bladder N32.81 and Anemia D64.9 [place] [address] [place] [id number] [address] [place] [address] Sep, Degenerative disc disease at L5-S1 level M51.36 [place] [address] [address] Aug, [facility] [address] [facility] [id number] [address] [place] [address] Aug, Degenerative disc disease at L5-S1 level M51.36 ; Chronic headaches R51 ; Bipolar 1 disorder F31.9 ; Overactive bladder N32.81 ; Anxiety F41.9 and Anemia D64.9 [facility] [address] [facility] [id number] [address] [place] [address] 24 Aug, 2016 Degenerative disc disease at L5-S1 level M51.36 [facility] [address] [id number] [address] [place] [phone] 18 Aug, 2016 [facility] [address] [facility] [id number] [address] [place] [address] 14 Aug, 2016 [facility] [address] [facility] [id number] [address] [place] [address] 10 Aug, 2016 Degenerative disc disease at L5-S1 level M51.36 [facility] [address] [facility] [id number] [address] [place] [phone] 28 Jul, 2016 Degenerative disc disease at L5-S1 level M51.36 [facility] [address] [facility] [id number] [address] [place] [phone] 27 Jul, 2016 [facility] [address] [facility] [id number] [address] [place] [phone] 23 Jul, 2016 [facility] [address] [facility] [id number] [address] [place] [id number] 22 Jul, 2016 Degenerative disc disease at L5-S1 level M51.36 ; Pure hyperglyceridemia E78.1 ; Bipolar 1 disorder F31.9 ; Anemia D64.9 ; Overactive bladder N32.81 ; Hypopotassemia E87.6 ; Anxiety F41.9 ; Mild intermittent asthma without complication J45.20 and Chronic headaches R51 [facility] [address] [facility] [id number] [address] [place] [id number] 15 Jul, 2016 [facility] [address] [id number] [address] [place] [phone] Jul, [facility] [address] [id number] [address] [place] [address] Jun, [facility] [address] [facility] [id number] [address] [place] [id number] Jun, Bipolar 1 disorder F31.9 ; A nxiety F41.9 ; Overactive bladder N32.81 ; Chronic headaches R51 ; Degenerative disc disease at L5-S1 level M51.36 ; Hypopotassemia E87.6 ; Anemia D64.9 and Morbid obesity due to excess calories E66.01 [facility] [address] [facility] [id number] [address] [place] [address] Jun, [facility] [address] [facility] [id number] [address] [place] [address] May, Overactive bladder N32.81 [facility] [address] [facility] [id number] [address] [place] [address] May, Bipolar 1 disorder F31.9 ; A nemia D64.9 ; Overactive bladder N32.81 ; Chronic headaches R51 ; Hypopotassemia E87.6 ; Degenerative disc disease at L5-S1 level M51.36 and Uncomplicated asthma, unspecified asthma severity J45.909 [facility] [address] [facility] [id number] [address] [place] [address] May, [facility] [address] [facility] [id number] [address] [place] [address] May, Chronic headaches R51 [facility] [address] [facility] [id number] [address] [place] [address] Apr, Chronic headaches R51 [facility] [address] [facility] [id number] [address] [place] [address] March, Chronic headaches R51 [facility] [address] [facility] [id number] [address] [place] [phone] March, [facility] [address] [place] [address] Feb, Chronic headaches R51 and De generative disc disease at L5-S1 level M51.[address] [address] Feb, Hypopotassemia E87.6 ; Anemi a D64.9 ; Overactive bladder N32.81 ; Chronic headaches R51 and Degenerative disc disease at L5-S1 level M51.36 [place] [address] [address] 07 Feb, 2016 Bipolar 1 disorder F31.9 ; A nemia D64.9 and Overactive bladder N32.[address] [address] 06 Feb, 2016 Scabies B86 ; Bipolar 1 diso rder F31.9 ; Anemia D64.9 ; Overactive bladder N32.81 ; Chronic headaches R51 ; Degenerative disc disease at L5-S1 level M51.36 and Wellness examination Z00.[address] [address] Feb, [address] [address] Oct, IMMUNIZATIONS No Known Immunizations SOCIAL HISTORY Never Assessed REASON FOR VISIT [facility] f/u--Soni, -Went to [facility] [place] in June for left foot swe lling, pain, and discoloration. Was told had sprain and arthritis., -Has had tro uble walking/applying pressure to that foot. PLAN OF CARE Activity Details Follow Up 3 months with PCP Zeb marks: VITAL SIGNS Height 65.0 in 2017-08-02 Weight 278.1 lbs 2017-08-02 Temperature 98.4 degrees Fahrenheit 2017-08-02 Heart Rate 88 bpm 2017-08-02 Respiratory Rate 20 2017-08-02 BMI 46.27 kg/m2 2017-08-02 Blood pressure systolic 118 mmHg 2017-08-02 Blood pressure diastolic 82 mmHg 2017-08-02 MEDICATIONS Medication Instructions Dosage Frequency Start Date End Date Duration S tatus Neurontin 600 MG Orally Three times a day 1 tablet 8h Active Topamax 200 mg Orally Twice a day 1 tablet 12h Feb, 30 days Active Effexor XR 150 MG Orally Once a day 1 capsule with food 24h Active Potassium Chloride [place] ER 20 MEQ Orally Twice a day 1 tablet 12h Active Albuterol Sulfate HFA 108 (90 Base) MCG/ACT Inhalation every 4 hrs 2 puffs as needed 4h May, Active Seroquel 200 mg Orally Once a day 1 tablet at bedtime 24h Active Ferrous Sulfate 325 MG Orally 3 times a day 1 tablet 8h Active PredniSONE 20 MG Orally Once a day 2 tablet x 1 week th en 1 tablet daily x 1 week 24h Jul, Aug, 30 day(s) Active Hydrocodone-Ibuprofen 7.5-200 MG Orally every 6 hrs 1 tablet as nee ded 6h Jul, Aug, 28 days Active Ondansetron 8 MG Orally 3 times a day PRN 1 tablet on the tongue and allow to dissolve 16 Apr, 2017 07 days Active Vistaril 25 MG Orally every 8 hrs 1 capsule as needed 8h 24 Jun, 16 Active RESULTS No Results PROCEDURES Procedure Date Ordered Result Body Site [facility] VISIT ESTABLISHED PATIENT Aug 02, 2017 INSTRUCTIONS MEDICATIONS ADMINISTERED No Known Medications [...] Left hip interstem replaced 05/2016 Hospitalization History ER [place]- Headache 12/18/2017
--- OUTSIDE RECORDS SUMMARY | 2019-11-27 06:47 | XMS REPORT ---
Author Author Tish MALCOLM Organization [facility] Address [address] [place] [address] Care Team Providers Care Stator Winder Name Role Phone CHARIS MALCOLM Unavailable PROBLEMS Type Condition ICD9-CM Code ORZ76-XO Code Onset Dates Condition S tatus SNOMED Code Problem Hypopotassemia E87.6 Active 19386 004 Problem Uncomplicated asthma, unspecified asthma severity J45.909 Active 404867259 Problem Degenerative disc disease at L5-S1 level M51.36 Active 13849836 Problem Obesity, morbid E66.01 Active 2381 45046 Problem Other chronic pain G89.29 Active 8 5641195 Problem Acquired equinus deformity of left foot M21.6X2 Active 21960756 Problem Anxiety F41.9 Active 93007862 Problem Morbid obesity due to excess calories E66.01 Active 356475903 Problem Hypoxemia R09.02 Active 871030730 Problem Overactive bladder N32.81 Active 2 79766690 Problem Bipolar 1 disorder F31.9 Active 3 22602046 Problem Chronic headaches R51 Active 43 7712293 Problem Pure hyperglyceridemia E78.1 Active 354094760 Problem Anemia D64.9 Active 544955343 ALLERGIES Substance Reaction Event Type Date Status Sulfamethoxazole-Trimethoprim Unknown Drug Allergy Nov, 201 8 Active Penicillin V Potassium Unknown Drug Allergy Nov, Activ e Morphine Sulfate anaphylaxis Drug Allergy Nov, Active Mobic fall asleep and sleep walk Drug Allergy Nov, A ctive Codeine Sulfate Unknown Drug Allergy Nov, Active Amoxicillin rash Drug Allergy Nov, Active paper tape rash Non Drug Allergy Nov, Active pink dye, purple dye sick to stomach Non Drug Allergy Nov, Active ENCOUNTERS Encounter Location Date Diagnosis [facility] [address] [facility] [id number] [address] [place] [id number] May, [facility] [address] [facility] [id number] [address] [place] [phone] Apr, [facility] [address] [id number] [address] [place] [phone] Apr, [facility] [address] [id number] [address] [place] [phone] Apr, [facility] [address] [id number] [address] [place] [phone] Apr, Medicare annual wellness vis it, initial Z00.00 [facility] [address] [id number] [address] [place] [id number] March, [facility] [address] [id number] [address] [place] [id number] March, [facility] [address] [id number] [address] [place] [phone] Feb, Medicare annual wellness vis it, initial Z00.00 ; Bipolar 1 disorder F31.9 ; Low back pain M54.5 and Other chronic pain G89.29 [facility] [address] [id number] [address] [place] [id number] Jan, [facility] [address] [facility] [id number] [address] [place] [phone] Dec, Frequent headaches R51 and D egenerative disc disease at L5-S1 level M51.36 [facility] [address] [facility] [id number] [address] [place] [phone] Nov, [facility] [address] [facility] [id number] [address] [place] [phone] Nov, Chronic intractable headache , unspecified headache type R51 [facility] [address] [facility] [id number] [address] [place] [phone] Nov, Chronic headaches R51 and BM I 45.0-49.9, adult Z68.42 [facility] [address] [facility] [id number] [address] [place] [phone] Nov, [facility] [address] [address] Nov, Obesity, morbid E66.01 ; Unc omplicated asthma, unspecified asthma severity J45.909 ; Anxiety F41.9 ; Pure hyperglyceridemia E78.1 and Family history of diabetes mellitus Z83.3 [place] [address] [address] Oct, Bronchitis J40 [place] [address] [address] Oct, Chronic headaches R51 [address] [address] Sep, [place] [address] [address] Sep, Chronic headaches R51 ; Othe r chronic pain G89.29 ; Anemia D64.9 and Obesity, morbid E66.01 [place] [address] [address] Aug, Acute suppurative otitis med ia of right ear without spontaneous rupture of tympanic membrane, recurrence not specified H66.001 [place] [address] [address] Aug, Other chronic pain G89.29 [place] [address] [address] Jul, Degenerative disc disease at L5-S1 level M51.36 [place] [address] [address] Jul, Other chronic pain G89.29 an d Sprain of deltoid ligament of left ankle, subsequent encounter S93.422D [place] [address] [address] 05 Jul, 2017 Degenerative disc disease at L5-S1 level M51.36 [place] [address] [address] Jun, [facility] [address] [facility] [id number] [address] [place] [id number] Jun, Degenerative disc disease at L5-S1 level M51.36 [facility] [address] [facility] [id number] [address] [place] [phone] Jun, [facility] [address] [facility] [id number] [address] [place] [phone] Jun, [facility] [address] [facility] [id number] [address] [place] [phone] Jun, [facility] [address] [facility] [id number] [address] [place] [phone] May, [facility] [address] [facility] [id number] [address] [place] [phone] May, [facility] [address] [place] [id number] [address] [place] [phone] May, Rib pain on left side R07.81 [facility] [address] [place] [id number] [address] [place] [id number] Apr, Morbid obesity due to excess calories E66.01 [facility] [address] [facility] [id number] [address] [place] [phone] Apr, Gastroenteritis K52.9 [facility] [address] [place] [id number] [address] [place] [phone] Apr, Degenerative disc disease at L5-S1 level M51.36 [facility] [address] [facility] [id number] [address] [place] [phone] March, Degenerative disc disease at L5-S1 level M51.36 [facility] [address] [facility] [id number] [address] [place] [id number] March, Bipolar 1 disorder F31.9 ; A nemia D64.9 ; Hypopotassemia E87.6 ; Uncomplicated asthma, unspecified asthma severity J45.909 ; Anxiety F41.9 ; Chronic headaches R51 and Degenerative disc disease at L5-S1 level M51.36 [facility] [address] [address] March, Degenerative disc disease at L5-S1 level M51.36 [facility] [address] [address] March, Degenerative disc disease at L5-S1 level M51.36 [place] [address] [address] March, Uncomplicated asthma, unspec ified asthma severity J45.909 ; Hypoxemia R09.02 ; Chronic headaches R51 and Degenerative disc disease at L5-S1 level M51.36 [place] [address] [address] March, [place] [address] [address] Feb, Acquired equinus deformity o f left foot M21.6X2 [place] [address] [address] Feb, Degenerative disc disease at L5-S1 level M51.36 [place] [address] [address] Feb, Degenerative disc disease at L5-S1 level M51.36 [place] [address] [address] Jan, Degenerative disc disease at L5-S1 level M51.36 [place] [address] [address] Jan, Degenerative disc disease at L5-S1 level M51.36 [place] [address] [address] Dec, Degenerative disc disease at L5-S1 level M51.36 [place] [address] [address] Dec, Overactive bladder N32.81 an d Degenerative disc disease at L5-S1 level M51.36 [facility] [address] [id number] [address] [place] [id number] Dec, Degenerative disc disease at L5-S1 level M51.36 [facility] [address] [id number] [address] [place] [id number] Dec, Degenerative disc disease at L5-S1 level M51.36 [facility] [address] [id number] [address] [place] [phone] Nov, [facility] [address] [id number] [address] [place] [phone] Nov, Chronic headaches R51 [facility] [address] [facility] [id number] [address] [place] [phone] Nov, Degenerative disc disease at L5-S1 level M51.36 [facility] [address] [id number] [address] [place] [phone] Nov, Left upper quadrant pain R10 .12 [facility] [address] [id number] [address] [place] [phone] Nov, Degenerative disc disease at L5-S1 level M51.36 [facility] [address] [facility] [id number] [address] [place] [id number] Nov, Degenerative disc disease at L5-S1 level M51.36 [facility] [address] [facility] [id number] [address] [place] [id number] Nov, Degenerative disc disease at L5-S1 level M51.36 [facility] [address] [facility] [id number] [address] [place] [phone] Nov, Degenerative disc disease at L5-S1 level M51.36 [facility] [address] [facility] [id number] [address] [place] [id number] Nov, Degenerative disc disease at L5-S1 level M51.36 [facility] [address] [facility] [id number] [address] [place] [phone] Oct, Degenerative disc disease at L5-S1 level M51.36 [place] [address] [place] [id number] [place] [phone] Sep, Degenerative disc disease at L5-S1 level M51.36 [facility] [address] [place] [id number] [place] [phone] Sep, Degenerative disc disease at L5-S1 level M51.36 ; Bipolar 1 disorder F31.9 ; Chronic headaches R51 ; Hypopotassemia E87.6 ; Uncomplicated asthma, unspecified asthma severity J45.909 ; Anxiety F41.9 ; Overactive bladder N32.81 and Anemia D64.9 [place] [address] [place] [id number] [place] [id number] Sep, Degenerative disc disease at L5-S1 level M51.36 [place] [address] [address] Aug, [place] [address] [place] [id number] [place] [phone] Aug, Degenerative disc disease at L5-S1 level M51.36 ; Chronic headaches R51 ; Bipolar 1 disorder F31.9 ; Overactive bladder N32.81 ; Anxiety F41.9 and Anemia D64.9 [place] [address] [place] [id number] [address] [place] [phone] Aug, Degenerative disc disease at L5-S1 level M51.36 [facility] [address] [place] [id number] [address] [place] [phone] 18 Aug, 2016 [place] [address] [place] [id number] [place] [phone] 14 Aug, 2016 [place] [address] [place] [id number] [place] [id number] 10 Aug, 2016 Degenerative disc disease at L5-S1 level M51.36 [facility] [address] [place] [id number] [place] [phone] 28 Jul, 2016 Degenerative disc disease at L5-S1 level M51.36 [facility] [address] [facility] [id number] [address] [place] [phone] 27 Jul, 2016 [facility] [address] [facility] [id number] [address] [place] [phone] 23 Jul, 2016 [facility] [address] [facility] [id number] [address] [place] [phone] Jul, Degenerative disc disease at L5-S1 level M51.36 ; Pure hyperglyceridemia E78.1 ; Bipolar 1 disorder F31.9 ; Anemia D64.9 ; Overactive bladder N32.81 ; Hypopotassemia E87.6 ; Anxiety F41.9 ; Mild intermittent asthma without complication J45.20 and Chronic headaches R51 [facility] [address] [facility] [id number] [address] [place] [phone] 15 Jul, 2016 [facility] [address] [place] [id number] [address] [place] [phone] 07 Jul, 2016 [facility] [address] [facility] [id number] [address] [place] [phone] Jun, [facility] [address] [facility] [id number] [address] [place] [phone] Jun, Bipolar 1 disorder F31.9 ; A nxiety F41.9 ; Overactive bladder N32.81 ; Chronic headaches R51 ; Degenerative disc disease at L5-S1 level M51.36 ; Hypopotassemia E87.6 ; Anemia D64.9 and Morbid obesity due to excess calories E66.01 [facility] [address] [facility] [id number] [address] [place] [phone] Jun, [facility] [address] [facility] [id number] [address] [place] [id number] May, Overactive bladder N32.81 [facility] [address] [facility] [id number] [address] [place] [id number] May, Bipolar 1 disorder F31.9 ; A nemia D64.9 ; Overactive bladder N32.81 ; Chronic headaches R51 ; Hypopotassemia E87.6 ; Degenerative disc disease at L5-S1 level M51.36 and Uncomplicated asthma, unspecified asthma severity J45.909 [facility] [address] [address] May, [facility] [address] [address] May, Chronic headaches R51 [place] [address] [address] Apr, Chronic headaches R51 [place] [address] [address] March, Chronic headaches R51 [place] [address] [address] March, [place] [address] [address] Feb, Chronic headaches R51 and De generative disc disease at L5-S1 level M51.36 [place] [address] [address] Feb, Hypopotassemia E87.6 ; Anemi a D64.9 ; Overactive bladder N32.81 ; Chronic headaches R51 and Degenerative disc disease at L5-S1 level M51.36 [place] [address] [address] Feb, Bipolar 1 disorder F31.9 ; A nemia D64.9 and Overactive bladder N32.81 [place] [address] [address] Feb, Scabies B86 ; Bipolar 1 diso rder F31.9 ; Anemia D64.9 ; Overactive bladder N32.81 ; Chronic headaches R51 ; Degenerative disc disease at L5-S1 level M51.36 and Wellness examination Z00.00 [place] [address] [id number] [address] Feb, [facility] [address] [facility] [id number] [address] [place] [phone] Oct, IMMUNIZATIONS No Known Immunizations SOCIAL HISTORY Never Assessed REASON FOR VISIT Obesity -[place] PLAN OF CARE VITAL SIGNS Height 65.0 in 2017-11-29 Weight 279.6 lbs 2017-11-29 Temperature 97.9 degrees Fahrenheit 2017-11-29 Heart Rate 80 bpm 2017-11-29 Respiratory Rate 22 2017-11-29 BMI 46.52 kg/m2 2017-11-29 Blood pressure systolic 116 mmHg 2017-11-29 Blood pressure diastolic 82 mmHg 2017-11-29 MEDICATIONS Medication Instructions Dosage Frequency Start Date End Date Duration S tatus Ondansetron 8 MG Orally 3 times a day PRN 1 tablet on the tongue and allow to dissolve Apr, 07 days Not-Taking Hydrocodone-Ibuprofen 7.5-200 MG Orally every 6 hrs 1 tablet as nee ded 6h Nov, 28 days Active Phentermine HCl 15 mg Orally Once a day 1 capsule 24h 17 Sep, 2017 Not-Taking Zofran ODT 4 MG Orally every 8 hrs 1 tablet on the tongue and al low to dissolve 8h Nov, Active Neurontin 600 MG Orally Three times a day 1 tablet 8h Active Effexor XR 150 MG Orally Once a day 1 capsule with food 24h Active Vistaril 25 MG Orally every 8 hrs 1 capsule as needed 8h 24 Jun, 16 Not-Taking Topamax 100 mg Orally Twice a day 2 tablets 12h Feb, 30 days Active Ferrous Sulfate 325 (65 Fe) mg Orally 2 times a day 1 tablet 12h Active Albuterol Sulfate HFA 108 (90 Base) MCG/ACT Inhalation every 4 hrs 2 puffs as needed 4h 20 May, 2016 Active Tessalon Perles 100 mg Orally Three times a day 1 capsule as needed 8h 15 Oct, 2017 Active Klor-Con M20 20MEQ 1 tablet 12h Acti ve Seroquel 200 mg Orally Once a day 1 tablet at bedtime 24h Active RESULTS No Results PROCEDURES Procedure Date Ordered Result Body Site [facility] VISIT ESTABLISHED PATIENT Nov 29, 2017 VENIPUNCT, ROUTINE* Nov 29, 2017 LAB NOT BILLED BY [facility] Nov 29, 2017 INSTRUCTIONS MEDICATIONS ADMINISTERED No Known Medications [...] interstem replaced 05/2016 Hospitalization History [facility] [place]- Headache 12/18/2017
--- OUTSIDE RECORDS SUMMARY | 2019-11-27 06:47 | XMS REPORT ---
Author Author Tish Luo Organization [facility] Address [address] [place] [address] Care Team Providers Care Medical Office Professional Instructor Name Role Phone JIM Luo Unavailable PROBLEMS Type Condition ICD9-CM Code KRL50-DZ Code Onset Dates Condition S tatus SNOMED Code Problem Hypopotassemia E87.6 Active 63974 004 Problem Uncomplicated asthma, unspecified asthma severity J45.909 Active 672112545 Problem Degenerative disc disease at L5-S1 level M51.36 Active 69374948 Problem Obesity, morbid E66.01 Active 2381 17889 Problem Other chronic pain G89.29 Active 8 4752452 Problem Acquired equinus deformity of left foot M21.6X2 Active 96138121 Problem Anxiety F41.9 Active 86811123 Problem Morbid obesity due to excess calories E66.01 Active 547968979 Problem Hypoxemia R09.02 Active 668111353 Problem Overactive bladder N32.81 Active 2 40893332 Problem Bipolar 1 disorder F31.9 Active 3 23283427 Problem Chronic headaches R51 Active 43 2334468 Problem Pure hyperglyceridemia E78.1 Active 676226184 Problem Anemia D64.9 Active [id number] ALLERGIES No Information ENCOUNTERS Encounter Location Date Diagnosis [facility] [address] [facility] [id number] [address] [place] [phone] Feb, Medicare annual wellness vis it, initial Z00.00 [place] [id number] [facility] [id number] [address] [place] [phone] Jan, [facility] [address] [facility] [id number] [address] [place] [phone] 22 Dec, 2017 Frequent headaches R51 and D egenerative disc disease at L5-S1 level M51.36 [facility] [address] [facility] [id number] [address] [place] [phone] Nov, [facility] WALK IN [facility] [address] [place] [id number] [address] [place] [phone] Nov, Chronic intractable headache , unspecified headache type R51 [facility]ALK IN [facility] [address] [place] [id number] [address] [place] [phone] Nov, Chronic headaches R51 and BM I 45.0-49.9, adult Z68.42 [place] [address] [address] Nov, [place] [address] [address] Nov, Obesity, morbid E66.01 ; Unc omplicated asthma, unspecified asthma severity J45.909 ; Anxiety F41.9 ; Pure hyperglyceridemia E78.1 and Family history of diabetes mellitus Z83.3 [place] [address] [address] Oct, Bronchitis J40 [place] [address] [address] Oct, Chronic headaches R51 [place] [address] [address] Sep, [place] [address] [address] Sep, Chronic headaches R51 ; Othe r chronic pain G89.29 ; Anemia D64.9 and Obesity, morbid E66.01 [place] [address] [place] [id number] [address] [place] [phone] Aug, Acute suppurative otitis med ia of right ear without spontaneous rupture of tympanic membrane, recurrence not specified H66.001 [place] [address] [place] [id number] [address] [place] [phone] 11 Aug, 2017 Other chronic pain G89.29 [place] [address] [place] [id number] [place] [phone] Jul, Degenerative disc disease at L5-S1 level M51.36 [facility] [address] [id number] [address] [place] [phone] 07 Jul, 2017 Other chronic pain G89.29 an d Sprain of deltoid ligament of left ankle, subsequent encounter S93.422D [facility] [address] [id number] [address] [place] [phone] 05 Jul, 2017 Degenerative disc disease at L5-S1 level M51.36 [facility] [address] [id number] [address] [place] [phone] Jun, [facility] [address] [id number] [address] [place] [phone] Jun, Degenerative disc disease at L5-S1 level M51.36 [facility] [address] [id number] [address] [place] [phone] Jun, [facility] [address] [id number] [address] [place] [phone] Jun, [facility] [address] [id number] [address] [place] [phone] Jun, [facility] [address] [id number] [address] [place] [phone] May, [facility] [address] [id number] [address] [place] [phone] May, [facility] [address] [id number] [address] [place] [phone] May, Rib pain on left side R07.81 [facility] [address] [id number] [address] [place] [phone] Apr, Morbid obesity due to excess calories E66.01 [facility] [address] [id number] [address] [place] [id number] 16 Apr, 2017 Gastroenteritis K52.9 [facility] [address] [id number] [address] [place] [id number] Apr, Degenerative disc disease at L5-S1 level M51.36 [place] [address] [place] [id number] [address] [place] [phone] March, Degenerative disc disease at L5-S1 level M51.36 [place] [address] [place] [id number] [address] [place] [id number] March, Bipolar 1 disorder F31.9 ; A nemia D64.9 ; Hypopotassemia E87.6 ; Uncomplicated asthma, unspecified asthma severity J45.909 ; Anxiety F41.9 ; Chronic headaches R51 and Degenerative disc disease at L5-S1 level M51.36 [place] [address] [place] [id number] [place] [address] March, Degenerative disc disease at L5-S1 level M51.36 [place] [address] [address] March, Degenerative disc disease at L5-S1 level M51.36 [place] [address] [place] [id number] [address] [place] [id number] March, Uncomplicated asthma, unspec ified asthma severity J45.909 ; Hypoxemia R09.02 ; Chronic headaches R51 and Degenerative disc disease at L5-S1 level M51.36 [place] [address] [place] [id number] [address] [place] [id number] March, [place] [address] [place] [id number] [address] [place] [id number] Feb, Acquired equinus deformity o f left foot M21.6X2 [place] [address] [facility] [id number] [address] [place] [phone] Feb, Degenerative disc disease at L5-S1 level M51.36 [place] [address] [place] [id number] [address] [place] [id number] Feb, Degenerative disc disease at L5-S1 level M51.36 [place] [address] [place] [id number] [address] [place] [id number] Jan, Degenerative disc disease at L5-S1 level M51.36 [facility] [address] [facility] [id number] [address] [place] [phone] Jan, Degenerative disc disease at L5-S1 level M51.36 [facility] [address] [facility] [id number] [address] [place] [id number] Dec, Degenerative disc disease at L5-S1 level M51.36 [facility] [address] [facility] [id number] [address] [place] [phone] Dec, Overactive bladder N32.81 an d Degenerative disc disease at L5-S1 level M51.36 [facility] [address] [facility] [id number] [address] [place] [phone] Dec, Degenerative disc disease at L5-S1 level M51.36 [facility] [address] [facility] [id number] [address] [place] [phone] Dec, Degenerative disc disease at L5-S1 level M51.36 [facility] [address] [id number] [address] [place] [phone] Nov, [facility] [address] [facility] [id number] [address] [place] [phone] Nov, Chronic headaches R51 [facility] [address] [facility] [id number] [address] [place] [phone] Nov, Degenerative disc disease at L5-S1 level M51.36 [facility] [address] [id number] [address] [place] [phone] Nov, Left upper quadrant pain R10 .12 [facility] [address] [facility] [id number] [address] [place] [id number] Nov, Degenerative disc disease at L5-S1 level M51.36 [facility] [address] [facility] [id number] [address] [place] [phone] Nov, Degenerative disc disease at L5-S1 level M51.36 [place] [address] [place] [id number] [place] [phone] Nov, Degenerative disc disease at L5-S1 level M51.36 [place] [address] [address] Nov, Degenerative disc disease at L5-S1 level M51.36 [place] [address] [address] Nov, Degenerative disc disease at L5-S1 level M51.36 [place] [address] [place] [id number] [place] [address] Oct, Degenerative disc disease at L5-S1 level M51.36 [place] [address] [address] Sep, Degenerative disc disease at L5-S1 level M51.36 [place] [address] [address] Sep, Degenerative disc disease at L5-S1 level M51.36 ; Bipolar 1 disorder F31.9 ; Chronic headaches R51 ; Hypopotassemia E87.6 ; Uncomplicated asthma, unspecified asthma severity J45.909 ; Anxiety F41.9 ; Overactive bladder N32.81 and Anemia D64.9 [place] [address] [address] Sep, Degenerative disc disease at L5-S1 level M51.36 [place] [address] [address] Aug, [place] [address] [address] Aug, Degenerative disc disease at L5-S1 level M51.36 ; Chronic headaches R51 ; Bipolar 1 disorder F31.9 ; Overactive bladder N32.81 ; Anxiety F41.9 and Anemia D64.9 [place] [address] [address] Aug, Degenerative disc disease at L5-S1 level M51.36 [facility] [address] [facility] [id number] [address] [place] [phone] 18 Aug, 2016 [facility] [address] [facility] [id number] [address] [place] [phone] 14 Aug, 2016 [facility] [address] [place] [id number] [place] [phone] 10 Aug, 2016 Degenerative disc disease at L5-S1 level M51.36 [facility] [address] [facility] [id number] [address] [place] [phone] 28 Jul, 2016 Degenerative disc disease at L5-S1 level M51.36 [facility] [address] [place] [id number] [place] [phone] 27 Jul, 2016 [facility] [address] [place] [id number] [place] [phone] 23 Jul, 2016 [facility] [address] [id number] 22 Jul, 2016 Degenerative disc disease at L5-S1 level M51.36 ; Pure hyperglyceridemia E78.1 ; Bipolar 1 disorder F31.9 ; Anemia D64.9 ; Overactive bladder N32.81 ; Hypopotassemia E87.6 ; Anxiety F41.9 ; Mild intermittent asthma without complication J45.20 and Chronic headaches R51 [facility] [address] [place] [id number] [address] [place] [phone] 15 Jul, 2016 [facility] [address] [place] [id number] [address] [place] [phone] 07 Jul, 2016 [facility] [address] [address] Jun, [facility] [address] [place] [id number] [place] [address] Jun, Bipolar 1 disorder F31.9 ; A nxiety F41.9 ; Overactive bladder N32.81 ; Chronic headaches R51 ; Degenerative disc disease at L5-S1 level M51.36 ; Hypopotassemia E87.6 ; Anemia D64.9 and Morbid obesity due to excess calories E66.01 [place] [address] [address] Jun, [place] [address] [address] May, Overactive bladder N32.81 [place] [address] [address] May, Bipolar 1 disorder F31.9 ; A nemia D64.9 ; Overactive bladder N32.81 ; Chronic headaches R51 ; Hypopotassemia E87.6 ; Degenerative disc disease at L5-S1 level M51.36 and Uncomplicated asthma, unspecified asthma severity J45.909 [place] [address] [address] May, [place] [address] [address] May, Chronic headaches R51 [place] [address] [address] Apr, Chronic headaches R51 [place] [address] [address] March, Chronic headaches R51 [place] [address] [address] March, [place] [address] [place] [id number] [place] [phone] Feb, Chronic headaches R51 and De generative disc disease at L5-S1 level M51.36 [place] [address] [place] [id number] [place] [phone] Feb, Hypopotassemia E87.6 ; Anemi a D64.9 ; Overactive bladder N32.81 ; Chronic headaches R51 and Degenerative disc disease at L5-S1 level M51.36 [place] [address] [facility] [id number] [address] [place] [phone] 07 Feb, 2016 Bipolar 1 disorder F31.9 ; O veractive bladder N32.81 and Anemia D64.9 [facility] [address] [facility] [id number] [address] [place] [id number] 06 Feb, 2016 Scabies B86 ; Bipolar 1 diso rder F31.9 ; Anemia D64.9 ; Overactive bladder N32.81 ; Chronic headaches R51 ; Degenerative disc disease at L5-S1 level M51.36 and Wellness examination Z00.00 [place] [address] [facility] [id number] [address] [place] [phone] Feb, [place] [address] [facility] [id number] [address] [place] [phone] Oct, IMMUNIZATIONS No Known Immunizations SOCIAL HISTORY Never Assessed REASON FOR VISIT 1 week DM ed f/u PLAN OF CARE VITAL [...] interstem replaced 05/2016 Hospitalization History [facility] [place]- Headache 12/18/2017
--- OUTSIDE RECORDS SUMMARY | 2019-11-27 06:47 | XMS REPORT ---
Author Author Tish Luo Organization [facility] Address [address] [place] [address] Care Team Providers Care Revenue Cycle Consultant Name Role Phone JIM Luo Unavailable PROBLEMS Type Condition ICD9-CM Code YFN67-DL Code Onset Dates Condition S tatus SNOMED Code Problem Hypopotassemia E87.6 Active 89541 004 Problem Uncomplicated asthma, unspecified asthma severity J45.909 Active 853625078 Problem Degenerative disc disease at L5-S1 level M51.36 Active 02525555 Problem Obesity, morbid E66.01 Active 2381 33547 Problem Other chronic pain G89.29 Active 8 7008051 Problem Acquired equinus deformity of left foot M21.6X2 Active 88209047 Problem Anxiety F41.9 Active 38038471 Problem Morbid obesity due to excess calories E66.01 Active 443856538 Problem Hypoxemia R09.02 Active 028566611 Problem Overactive bladder N32.81 Active 2 89523374 Problem Bipolar 1 disorder F31.9 Active 3 73986299 Problem Chronic headaches R51 Active 43 9872890 Problem Pure hyperglyceridemia E78.1 Active 897495074 Problem Anemia D64.9 Active 810167703 ALLERGIES No Information ENCOUNTERS Encounter Location Date Diagnosis [facility] [id number] [place] [phone] Feb, Medicare annual wellness vis it, initial Z00.00 ; Bipolar 1 disorder F31.9 ; Low back pain M54.5 and Other chronic pain G89.29 [facility] [address] [facility] [id number] [address] [place] [phone] Jan, [facility] [address] [facility] [id number] [address] [place] [address] Dec, Frequent headaches R51 and D egenerative disc disease at L5-S1 level M51.36 [place] [address] [address] Nov, [facility] [address] [address] Nov, Chronic intractable headache , unspecified headache type R51 [facility] [address] [address] Nov, Chronic headaches R51 and BM I 45.0-49.9, adult Z68.42 [place] [address] [address] Nov, [place] [address] [address] Nov, Obesity, morbid E66.01 ; Unc omplicated asthma, unspecified asthma severity J45.909 ; Anxiety F41.9 ; Pure hyperglyceridemia E78.1 and Family history of diabetes mellitus Z83.3 [place] [address] [address] Oct, Bronchitis J40 [place] [address] [address] 06 Oct, 2017 Chronic headaches R51 [place] [address] [address] Sep, [place] [address] [address] Sep, Chronic headaches R51 ; Othe r chronic pain G89.29 ; Anemia D64.9 and Obesity, morbid E66.01 [place] [address] [address] Aug, Acute suppurative otitis med ia of right ear without spontaneous rupture of tympanic membrane, recurrence not specified H66.001 [place] [address] [address] Aug, Other chronic pain G89.29 [facility] [address] [id number] [address] [place] [id number] 18 Jul, 2017 Degenerative disc disease at L5-S1 level M51.36 [facility] [address] [id number] [address] [place] [address] 07 Jul, 2017 Other chronic pain G89.29 an d Sprain of deltoid ligament of left ankle, subsequent encounter S93.422D [facility] [address] [id number] [address] [place] [id number] 05 Jul, 2017 Degenerative disc disease at L5-S1 level M51.36 [facility] [address] [id number] [address] [place] [address] Jun, [facility] [address] [id number] [address] [place] [phone] Jun, Degenerative disc disease at L5-S1 level M51.36 [facility] [address] [id number] [address] [place] [phone] Jun, [facility] [address] [id number] [address] [place] [phone] Jun, [facility] [address] [id number] [address] [place] [phone] Jun, [facility] [address] [id number] [address] [place] [phone] May, [facility] [address] [id number] [address] [place] [phone] May, [facility] [address] [id number] [address] [place] [address] May, Rib pain on left side R07.81 [facility] [address] [id number] [address] [place] [address] Apr, Morbid obesity due to excess calories E66.01 [facility] [address] [id number] [address] [place] [phone] Apr, Gastroenteritis K52.9 [place] [address] [address] Apr, Degenerative disc disease at L5-S1 level M51.36 [place] [address] [address] March, Degenerative disc disease at L5-S1 level M51.36 [place] [address] [address] March, Bipolar 1 disorder F31.9 ; A nemia D64.9 ; Hypopotassemia E87.6 ; Uncomplicated asthma, unspecified asthma severity J45.909 ; Anxiety F41.9 ; Chronic headaches R51 and Degenerative disc disease at L5-S1 level M51.36 [place] [address] [address] March, Degenerative disc disease at L5-S1 level M51.36 [place] [address] [address] March, Degenerative disc disease at L5-S1 level M51.36 [place] [address] [address] March, Uncomplicated asthma, unspec ified asthma severity J45.909 ; Hypoxemia R09.02 ; Chronic headaches R51 and Degenerative disc disease at L5-S1 level M51.36 [place] [address] [address] March, [place] [address] [address] Feb, Acquired equinus deformity o f left foot M21.6X2 [place] [address] [address] Feb, Degenerative disc disease at L5-S1 level M51.36 [place] [address] [address] Feb, Degenerative disc disease at L5-S1 level M51.36 [facility] [address] [id number] [address] [place] [address] Jan, Degenerative disc disease at L5-S1 level M51.36 [facility] [address] [id number] [address] [place] [phone] Jan, Degenerative disc disease at L5-S1 level M51.36 [facility] [address] [id number] [address] [place] [phone] Dec, Degenerative disc disease at L5-S1 level M51.36 [facility] [address] [id number] [address] [place] [phone] Dec, Overactive bladder N32.81 an d Degenerative disc disease at L5-S1 level M51.36 [facility] [address] [facility] [id number] [address] [place] [phone] Dec, Degenerative disc disease at L5-S1 level M51.36 [facility] [address] [id number] [address] [place] [address] Dec, Degenerative disc disease at L5-S1 level M51.36 [facility] [address] [id number] [address] [place] [phone] Nov, [facility] [address] [facility] [id number] [address] [place] [phone] Nov, Chronic headaches R51 [facility] [address] [facility] [id number] [address] [place] [phone] Nov, Degenerative disc disease at L5-S1 level M51.36 [facility] [address] [id number] [address] [place] [address] Nov, Left upper quadrant pain R10 .12 [facility] [address] [facility] [id number] [address] [place] [phone] Nov, Degenerative disc disease at L5-S1 level M51.36 [facility] [address] [facility] [id number] [address] [place] [phone] Nov, Degenerative disc disease at L5-S1 level M51.36 [place] [id number] [place] [address] Nov, Degenerative disc disease at L5-S1 level M51.36 [facility] [id number] [place] [phone] Nov, Degenerative disc disease at L5-S1 level M51.36 [place] [id number] [place] [phone] Nov, Degenerative disc disease at L5-S1 level M51.36 [place] [id number] [place] [phone] Oct, Degenerative disc disease at L5-S1 level M51.36 [place] [address] [address] [id number] [place] [phone] Sep, Degenerative disc disease at L5-S1 level M51.36 [place] [id number] [place] [address] Sep, Degenerative disc disease at L5-S1 level M51.36 ; Bipolar 1 disorder F31.9 ; Chronic headaches R51 ; Hypopotassemia E87.6 ; Uncomplicated asthma, unspecified asthma severity J45.909 ; Anxiety F41.9 ; Overactive bladder N32.81 and Anemia D64.9 [place] [id number] [place] [phone] Sep, Degenerative disc disease at L5-S1 level M51.36 [place] [id number] [place] [phone] Aug, [place] [id number] [place] [phone] Aug, Degenerative disc disease at L5-S1 level M51.36 ; Chronic headaches R51 ; Bipolar 1 disorder F31.9 ; Overactive bladder N32.81 ; Anxiety F41.9 and Anemia D64.9 [place] [address] [facility] [id number] [address] [place] [phone] 24 Aug, 2016 Degenerative disc disease at L5-S1 level M51.36 [facility] [address] [facility] [id number] [address] [place] [phone] 18 Aug, 2016 [facility] [id number] [place] [address] 14 Aug, 2016 [facility] [address] [facility] [id number] [place] [address] 10 Aug, 2016 Degenerative disc disease at L5-S1 level M51.36 [facility] [id number] [place] [address] 28 Jul, 2016 Degenerative disc disease at L5-S1 level M51.36 [facility] [id number] [place] [phone] 27 Jul, 2016 [facility] [id number] [place] [phone] 23 Jul, 2016 [facility] [id number] [place] [id number] 22 Jul, 2016 Degenerative disc disease at L5-S1 level M51.36 ; Pure hyperglyceridemia E78.1 ; Bipolar 1 disorder F31.9 ; Anemia D64.9 ; Overactive bladder N32.81 ; Hypopotassemia E87.6 ; Anxiety F41.9 ; Mild intermittent asthma without complication J45.20 and Chronic headaches R51 [facility] [address] [facility] [id number] [address] [place] [id number] 15 Jul, 2016 [facility] [address] [facility] [id number] [address] [place] [phone] 07 Jul, 2016 [facility] [id number] [place] [phone] Jun, [facility] [id number] [place] [id number] Jun, Bipolar 1 disorder F31.9 ; A nxiety F41.9 ; Overactive bladder N32.81 ; Chronic headaches R51 ; Degenerative disc disease at L5-S1 level M51.36 ; Hypopotassemia E87.6 ; Anemia D64.9 and Morbid obesity due to excess calories E66.01 [facility] [address] [facility] [id number] [address] [place] [phone] Jun, [place] [id number] [place] [phone] May, Overactive bladder N32.81 [place] [id number] [place] [address] May, Bipolar 1 disorder F31.9 ; A nemia D64.9 ; Overactive bladder N32.81 ; Chronic headaches R51 ; Hypopotassemia E87.6 ; Degenerative disc disease at L5-S1 level M51.36 and Uncomplicated asthma, unspecified asthma severity J45.909 [place] [address] [place] [id number] [place] [phone] May, [place] [id number] [place] [phone] May, Chronic headaches R51 [place] [id number] [place] [address] Apr, Chronic headaches R51 [place] [id number] [place] [phone] March, Chronic headaches R51 [place] [id number] [place] [phone] March, [place] [address] [facility] [id number] [address] [place] [address] Feb, Chronic headaches R51 and De generative disc disease at L5-S1 level M51.36 [place] [address] [facility] [id number] [address] [place] [phone] Feb, Hypopotassemia E87.6 ; Anemi a D64.9 ; Overactive bladder N32.81 ; Chronic headaches R51 and Degenerative disc disease at L5-S1 level M51.36 [place] [id number] [place] [address] 07 Feb, 2016 Bipolar 1 disorder F31.9 ; O veractive bladder N32.81 and Anemia D64.9 [place] [id number] [place] [id number] 06 Feb, 2016 Scabies B86 ; Bipolar 1 diso rder F31.9 ; Anemia D64.9 ; Overactive bladder N32.81 ; Chronic headaches R51 ; Degenerative disc disease at L5-S1 level M51.36 and Wellness examination Z00.00 [place] [id number] [place] [address] 17 Feb, 2009 [place] [id number] [place] [phone] Oct, IMMUNIZATIONS No Known Immunizations SOCIAL HISTORY Never Assessed REASON FOR VISIT 1 mo f/u DM Ed PLAN OF CARE VITAL SIGNS MEDICATIONS No [...] interstem replaced 05/2016 Hospitalization History [facility] [place]- Headache 12/18/2017
--- OUTSIDE RECORDS SUMMARY | 2019-11-27 06:47 | XMS REPORT ---
Author Author Tish NIEVES Organization [facility] Address [address] [place] [address] Care Team Providers Care Automation And Controls Manager Name Role Phone EZEQUIEL NIELS Unavailable PROBLEMS Type Condition ICD9-CM Code UGJ95-CE Code Onset Dates Condition S tatus SNOMED Code Problem Hypopotassemia E87.6 Active 11213 004 Problem Uncomplicated asthma, unspecified asthma severity J45.909 Active 878690375 Problem Degenerative disc disease at L5-S1 level M51.36 Active 28458160 Problem Obesity, morbid E66.01 Active 2381 53678 Problem Other chronic pain G89.29 Active 8 0994059 Problem Acquired equinus deformity of left foot M21.6X2 Active 47485124 Problem Anxiety F41.9 Active 52861119 Problem Morbid obesity due to excess calories E66.01 Active 220644486 Problem Hypoxemia R09.02 Active 436939234 Problem Overactive bladder N32.81 Active 2 06093166 Problem Bipolar 1 disorder F31.9 Active 3 34149991 Problem Chronic headaches R51 Active 43 2177442 Problem Pure hyperglyceridemia E78.1 Active 718110907 Problem Anemia D64.9 Active [id number] ALLERGIES No Information ENCOUNTERS Encounter Location Date Diagnosis [facility] [address] [facility] [id number] [address] [place] [phone] Feb, Medicare annual wellness vis it, initial Z00.00 [facility] [address] [facility] [id number] [address] [place] [phone] Jan, [facility] [address] [facility] [id number] [address] [place] [phone] Dec, Frequent headaches R51 and D egenerative disc disease at L5-S1 level M51.36 [facility] [address] [facility] [id number] [address] [place] [phone] Nov, [facility]ALK IN [facility] [address] [address] Nov, Chronic intractable headache , unspecified headache type R51 [facility] IN [facility] [address] [address] Nov, Chronic headaches R51 and BM I 45.0-49.9, adult Z68.42 [place] [address] [address] Nov, [place] [address] [address] Nov, Obesity, morbid E66.01 ; Unc omplicated asthma, unspecified asthma severity J45.909 ; Anxiety F41.9 ; Pure hyperglyceridemia E78.1 and Family history of diabetes mellitus Z83.3 [place] [address] [address] Oct, Bronchitis J40 [place] [address] [address] Oct, Chronic headaches R51 [place] [address] [address] Sep, [place] [address] [address] Sep, Chronic headaches R51 ; Othe r chronic pain G89.29 ; Anemia D64.9 and Obesity, morbid E66.01 [place] [address] [address] Aug, Acute suppurative otitis med ia of right ear without spontaneous rupture of tympanic membrane, recurrence not specified H66.001 [place] [address] [address] Aug, Other chronic pain G89.29 [place] [address] [address] Jul, Degenerative disc disease at L5-S1 level M51.36 [facility] [address] [id number] [address] [place] [phone] Jul, Other chronic pain G89.29 an d Sprain of deltoid ligament of left ankle, subsequent encounter S93.422D [facility] [address] [id number] [address] [place] [phone] 05 Jul, 2017 Degenerative disc disease at L5-S1 level M51.36 [facility] [address] [id number] [address] [place] [phone] Jun, [facility] [address] [id number] [address] [place] [id number] Jun, Degenerative disc disease at L5-S1 level M51.36 [facility] [address] [id number] [address] [place] [phone] Jun, [facility] [address] [id number] [address] [place] [phone] Jun, [facility] [address] [id number] [address] [place] [phone] Jun, [facility] [address] [id number] [address] [place] [phone] May, [facility] [address] [id number] [address] [place] [phone] May, [facility] [address] [id number] [address] [place] [phone] May, Rib pain on left side R07.81 [facility] [address] [id number] [address] [place] [phone] Apr, Morbid obesity due to excess calories E66.01 [facility] [address] [id number] [address] [place] [phone] 16 Apr, 2017 Gastroenteritis K52.9 [facility] [address] [id number] [address] [place] [phone] Apr, Degenerative disc disease at L5-S1 level M51.36 [place] [id number] [place] [phone] March, Degenerative disc disease at L5-S1 level M51.36 [place] [address] [address] March, Bipolar 1 disorder F31.9 ; A nemia D64.9 ; Hypopotassemia E87.6 ; Uncomplicated asthma, unspecified asthma severity J45.909 ; Anxiety F41.9 ; Chronic headaches R51 and Degenerative disc disease at L5-S1 level M51.36 [place] [address] [address] March, Degenerative disc disease at L5-S1 level M51.36 [place] [address] [address] March, Degenerative disc disease at L5-S1 level M51.36 [place] [address] [address] March, Uncomplicated asthma, unspec ified asthma severity J45.909 ; Hypoxemia R09.02 ; Chronic headaches R51 and Degenerative disc disease at L5-S1 level M51.36 [place] [address] [address] March, [place] [address] [address] Feb, Acquired equinus deformity o f left foot M21.6X2 [place] [address] [place] [id number] [place] [phone] Feb, Degenerative disc disease at L5-S1 level M51.36 [place] [address] [place] [id number] [address] [place] [id number] Feb, Degenerative disc disease at L5-S1 level M51.36 [place] [address] [address] Jan, Degenerative disc disease at L5-S1 level M51.36 [facility] [address] [id number] [address] [place] [phone] Jan, Degenerative disc disease at L5-S1 level M51.36 [facility] [address] [id number] [address] [place] [address] Dec, Degenerative disc disease at L5-S1 level M51.36 [facility] [address] [id number] [address] [place] [address] Dec, Overactive bladder N32.81 an d Degenerative disc disease at L5-S1 level M51.36 [facility] [address] [id number] [address] [place] [phone] Dec, Degenerative disc disease at L5-S1 level M51.36 [facility] [address] [id number] [address] [place] [phone] Dec, Degenerative disc disease at L5-S1 level M51.36 [facility] [address] [id number] [address] [place] [phone] Nov, [facility] [address] [id number] [address] [place] [phone] Nov, Chronic headaches R51 [facility] [address] [facility] [id number] [address] [place] [phone] Nov, Degenerative disc disease at L5-S1 level M51.36 [facility] [address] [id number] [address] [place] [phone] Nov, Left upper quadrant pain R10 .12 [facility] [address] [id number] [address] [place] [phone] Nov, Degenerative disc disease at L5-S1 level M51.36 [facility] [address] [facility] [id number] [address] [place] [phone] Nov, Degenerative disc disease at L5-S1 level M51.36 [facility] [address] [address] Nov, Degenerative disc disease at L5-S1 level M51.36 [place] [address] [address] Nov, Degenerative disc disease at L5-S1 level M51.36 [place] [address] [address] Nov, Degenerative disc disease at L5-S1 level M51.36 [place] [address] [address] Oct, Degenerative disc disease at L5-S1 level M51.36 [place] [address] [address] Sep, Degenerative disc disease at L5-S1 level M51.36 [place] [address] [address] Sep, Degenerative disc disease at L5-S1 level M51.36 ; Bipolar 1 disorder F31.9 ; Chronic headaches R51 ; Hypopotassemia E87.6 ; Uncomplicated asthma, unspecified asthma severity J45.909 ; Anxiety F41.9 ; Overactive bladder N32.81 and Anemia D64.[address] [address] Sep, Degenerative disc disease at L5-S1 level M51.36 [place] [address] [address] Aug, [place] [address] [address] Aug, Degenerative disc disease at L5-S1 level M51.36 ; Chronic headaches R51 ; Bipolar 1 disorder F31.9 ; Overactive bladder N32.81 ; Anxiety F41.9 and Anemia D64.9 [place] [address] [address] Aug, Degenerative disc disease at L5-S1 level M51.36 [facility] [address] [facility] [id number] [address] [place] [phone] 18 Aug, 2016 [facility] [address] [facility] [id number] [address] [place] [id number] 14 Aug, 2016 [facility] [address] [place] [id number] [place] [phone] 10 Aug, 2016 Degenerative disc disease at L5-S1 level M51.36 [facility] [address] [facility] [id number] [address] [place] [id number] 28 Jul, 2016 Degenerative disc disease at L5-S1 level M51.36 [facility] [address] [place] [id number] [place] [address] 27 Jul, 2016 [facility] [address] [place] [id number] [place] [phone] 23 Jul, 2016 [facility] [address] [place] [id number] [place] [phone] 22 Jul, 2016 Degenerative disc disease at L5-S1 level M51.36 ; Pure hyperglyceridemia E78.1 ; Bipolar 1 disorder F31.9 ; Anemia D64.9 ; Overactive bladder N32.81 ; Hypopotassemia E87.6 ; Anxiety F41.9 ; Mild intermittent asthma without complication J45.20 and Chronic headaches R51 [facility] [address] [place] [id number] [address] [place] [phone] 15 Jul, 2016 [facility] [address] [place] [id number] [address] [place] [phone] 07 Jul, 2016 [facility] [address] [place] [id number] [address] [place] [phone] Jun, [facility] [address] [place] [id number] [place] [address] Jun, Bipolar 1 disorder F31.9 ; A nxiety F41.9 ; Overactive bladder N32.81 ; Chronic headaches R51 ; Degenerative disc disease at L5-S1 level M51.36 ; Hypopotassemia E87.6 ; Anemia D64.9 and Morbid obesity due to excess calories E66.01 [place] [id number] [address] Jun, [place] [address] [place] [id number] [place] [phone] May, Overactive bladder N32.81 [place] [address] [place] [id number] [place] [address] May, Bipolar 1 disorder F31.9 ; A nemia D64.9 ; Overactive bladder N32.81 ; Chronic headaches R51 ; Hypopotassemia E87.6 ; Degenerative disc disease at L5-S1 level M51.36 and Uncomplicated asthma, unspecified asthma severity J45.909 [place] [address] [address] May, [place] [address] [address] May, Chronic headaches R51 [place] [address] [address] Apr, Chronic headaches R51 [place] [address] [address] March, Chronic headaches R51 [place] [address] [address] March, [place] [address] [place] [id number] [place] [phone] Feb, Chronic headaches R51 and De generative disc disease at L5-S1 level M51.36 [place] [address] [place] [id number] [place] [address] Feb, Hypopotassemia E87.6 ; Anemi a D64.9 ; Overactive bladder N32.81 ; Chronic headaches R51 and Degenerative disc disease at L5-S1 level M51.36 [place] [address] [place] [id number] [place] [address], [place] [address] 07 Feb, 2016 Bipolar 1 disorder F31.9 ; A nemia D64.9 and Overactive bladder N32.81 [place] [address] [facility] [id number] [address] [place] [phone] 06 Feb, 2016 Scabies B86 ; Bipolar 1 diso rder F31.9 ; Anemia D64.9 ; Overactive bladder N32.81 ; Chronic headaches R51 ; Degenerative disc disease at L5-S1 level M51.36 and Wellness examination Z00.00 [place] [address] [facility] [id number] [address] [place] [phone] Feb, [place] [address] [facility] [id number] [address] [place] [phone] Oct, IMMUNIZATIONS No Known Immunizations SOCIAL HISTORY Never Assessed REASON FOR VISIT PT follow-up PLAN OF CARE Activity Details Follow Up 4 Weeks Reason:F/U PT VITAL SIGNS MEDICATIONS Unknown Medications RESULTS No Results PROCEDURES Procedure Date Ordered Result Body Site THERAPEUTIC EXERCISES April 02, 2017 INSTRUCTIONS MEDICATIONS ADMINISTERED No Known [...] interstem replaced 05/2016 Hospitalization History [facility] [place]- Headache 12/18/2017
--- OUTSIDE RECORDS SUMMARY | 2019-11-27 06:48 | XMS REPORT ---
Author Author Tish Luo Organization [facility] Address [address] [place] [address] Care Team Providers Care Supplier Specialist Name Role Phone JIM Luo Unavailable PROBLEMS Type Condition ICD9-CM Code [id number] Code Onset Dates Condition S tatus SNOMED Code Problem Hypopotassemia E87.6 Active 18049 004 Problem Uncomplicated asthma, unspecified asthma severity J45.909 Active 175307349 Problem Degenerative disc disease at L5-S1 level M51.36 Active 22717927 Problem Obesity, morbid E66.01 Active 2381 10674 Problem Other chronic pain G89.29 Active 8 2405863 Problem Acquired equinus deformity of left foot M21.6X2 Active 45003429 Problem Anxiety F41.9 Active 24496886 Problem Morbid obesity due to excess calories E66.01 Active 652936530 Problem Hypoxemia R09.02 Active 743301489 Problem Overactive bladder N32.81 Active 2 48972406 Problem Bipolar 1 disorder F31.9 Active 3 60938317 Problem Chronic headaches R51 Active 43 7386801 Problem Pure hyperglyceridemia E78.1 Active 664320005 Problem Anemia D64.9 Active [id number] ALLERGIES No Information ENCOUNTERS Encounter Location Date Diagnosis [facility] [address] [facility] [id number] [address] [place] [phone] Feb, Medicare annual wellness vis it, initial Z00.00 [place] [address] [facility] [id number] [address] [place] [phone] Jan, [facility] [address] [facility] [id number] [address] [place] [phone] 22 Dec, 2017 Frequent headaches R51 and D egenerative disc disease at L5-S1 level M51.36 [facility] [address] [facility] [id number] [address] [place] [phone] Nov, [facility] [address] [place] [id number] [address] [place] [phone] Nov, Chronic intractable headache , unspecified headache type R51 [facility] [address] [place] [id number] [address] [place] [phone] Nov, Chronic headaches R51 and BM I 45.0-49.9, adult Z68.42 [place] [address] [phone] Nov, [place] [address] [address] Nov, Obesity, morbid E66.01 ; Unc omplicated asthma, unspecified asthma severity J45.909 ; Anxiety F41.9 ; Pure hyperglyceridemia E78.1 and Family history of diabetes mellitus Z83.3 [place] [address] [address] Oct, Bronchitis J40 [place] [address] [phone] Oct, Chronic headaches R51 [place] [address] [address] Sep, [place] [address] [id number] Sep, Chronic headaches R51 ; Othe r chronic pain G89.29 ; Anemia D64.9 and Obesity, morbid E66.01 [place] [address] [place] [id number] [address] [place] [phone] Aug, Acute suppurative otitis med ia of right ear without spontaneous rupture of tympanic membrane, recurrence not specified H66.001 [place] [address] [place] [id number] [address] [place] [phone] 11 Aug, 2017 Other chronic pain G89.29 [place] [address] [place] [id number] [place] [phone] Jul, Degenerative disc disease at L5-S1 level M51.36 [facility] [address] [id number] [address] [place] [phone] 07 Jul, 2017 Other chronic pain G89.29 an d Sprain of deltoid ligament of left ankle, subsequent encounter S93.422D [facility] [address] [id number] [address] [place] [phone] 05 Jul, 2017 Degenerative disc disease at L5-S1 level M51.36 [facility] [address] [id number] [address] [place] [phone] Jun, [facility] [address] [id number] [address] [place] [phone] Jun, Degenerative disc disease at L5-S1 level M51.36 [facility] [address] [id number] [address] [place] [phone] Jun, [facility] [address] [id number] [address] [place] [id number] Jun, [facility] [address] [id number] [address] [place] [phone] Jun, [facility] [address] [id number] [address] [place] [phone] May, [facility] [address] [id number] [address] [place] [phone] May, [facility] [address] [id number] [address] [place] [phone] May, Rib pain on left side R07.81 [facility] [address] [id number] [address] [place] [phone] Apr, Morbid obesity due to excess calories E66.01 [facility] [address] [id number] [address] [place] [phone] 16 Apr, 2017 Gastroenteritis K52.9 [facility] [address] [id number] [address] [place] [phone] Apr, Degenerative disc disease at L5-S1 level M51.36 [place] [address] [place] [id number] [address] [place] [phone] March, Degenerative disc disease at L5-S1 level M51.36 [place] [address] [place] [id number] [address] [place] [phone] March, Bipolar 1 disorder F31.9 ; A nemia D64.9 ; Hypopotassemia E87.6 ; Uncomplicated asthma, unspecified asthma severity J45.909 ; Anxiety F41.9 ; Chronic headaches R51 and Degenerative disc disease at L5-S1 level M51.36 [place] [address] [place] [id number] [place] [phone] March, Degenerative disc disease at L5-S1 level M51.36 [place] [address] [address] March, Degenerative disc disease at L5-S1 level M51.36 [place] [address] [place] [id number] [address] [place] [phone] March, Uncomplicated asthma, unspec ified asthma severity J45.909 ; Hypoxemia R09.02 ; Chronic headaches R51 and Degenerative disc disease at L5-S1 level M51.36 [place] [address] [place] [id number] [address] [place] [phone] March, [place] [address] [place] [id number] [address] [place] [phone] Feb, Acquired equinus deformity o f left foot M21.6X2 [place] [address] [facility] [id number] [address] [place] [phone] Feb, Degenerative disc disease at L5-S1 level M51.36 [place] [address] [place] [id number] [address] [place] [phone] Feb, Degenerative disc disease at L5-S1 level M51.36 [place] [address] [place] [id number] [address] [place] [phone] Jan, Degenerative disc disease at L5-S1 level M51.36 [facility] [address] [facility] [id number] [address] [place] [phone] Jan, Degenerative disc disease at L5-S1 level M51.36 [facility] [address] [facility] [id number] [address] [place] [phone] Dec, Degenerative disc disease at L5-S1 level M51.36 [facility] [address] [facility] [id number] [address] [place] [phone] Dec, Overactive bladder N32.81 an d Degenerative disc disease at L5-S1 level M51.36 [facility] [address] [facility] [id number] [address] [place] [phone] Dec, Degenerative disc disease at L5-S1 level M51.36 [facility] [address] [facility] [id number] [address] [place] [phone] Dec, Degenerative disc disease at L5-S1 level M51.36 [facility] [address] [id number] [address] [place] [phone] Nov, [facility] [address] [facility] [id number] [address] [place] [phone] Nov, Chronic headaches R51 [facility] [address] [facility] [id number] [address] [place] [phone] Nov, Degenerative disc disease at L5-S1 level M51.36 [facility] [address] [id number] [address] [place] [phone] Nov, Left upper quadrant pain R10 .12 [facility] [address] [facility] [id number] [address] [place] [phone] Nov, Degenerative disc disease at L5-S1 level M51.36 [facility] [address] [facility] [id number] [address] [place] [phone] Nov, Degenerative disc disease at L5-S1 level M51.36 [place] [address] [place] [id number] [place] [phone] Nov, Degenerative disc disease at L5-S1 level M51.36 [place] [address] [id number] Nov, Degenerative disc disease at L5-S1 level M51.36 [place] [address] [id number] Nov, Degenerative disc disease at L5-S1 level M51.36 [place] [address] [place] [id number] [place] [phone] Oct, Degenerative disc disease at L5-S1 level M51.36 [place] [address] [id number] Sep, Degenerative disc disease at L5-S1 level M51.36 [place] [address] [address] Sep, Degenerative disc disease at L5-S1 level M51.36 ; Bipolar 1 disorder F31.9 ; Chronic headaches R51 ; Hypopotassemia E87.6 ; Uncomplicated asthma, unspecified asthma severity J45.909 ; Anxiety F41.9 ; Overactive bladder N32.81 and Anemia D64.9 [place] [address] [address] Sep, Degenerative disc disease at L5-S1 level M51.36 [place] [address] [address] Aug, [place] [address] [address] Aug, Degenerative disc disease at L5-S1 level M51.36 ; Chronic headaches R51 ; Bipolar 1 disorder F31.9 ; Overactive bladder N32.81 ; Anxiety F41.9 and Anemia D64.9 [place] [address] [address] Aug, Degenerative disc disease at L5-S1 level M51.36 [facility] [address] [facility] [id number] [address] [place] [phone] 18 Aug, 2016 [facility] [address] [facility] [id number] [address] [place] [phone] 14 Aug, 2016 [facility] [address] [place] [id number] [place] [phone] 10 Aug, 2016 Degenerative disc disease at L5-S1 level M51.36 [facility] [address] [facility] [id number] [address] [place] [phone] 28 Jul, 2016 Degenerative disc disease at L5-S1 level M51.36 [facility] [address] [place] [id number] [place] [phone] 27 Jul, 2016 [facility] [address] [place] [id number] [place] [phone] 23 Jul, 2016 [facility] [address] [id number] 22 Jul, 2016 Degenerative disc disease at L5-S1 level M51.36 ; Pure hyperglyceridemia E78.1 ; Bipolar 1 disorder F31.9 ; Anemia D64.9 ; Overactive bladder N32.81 ; Hypopotassemia E87.6 ; Anxiety F41.9 ; Mild intermittent asthma without complication J45.20 and Chronic headaches R51 [facility] [address] [place] [id number] [address] [place] [phone] 15 Jul, 2016 [facility] [address] [place] [id number] [address] [place] [phone] 07 Jul, 2016 [facility] [address] [phone] Jun, [facility] [address] [place] [id number] [place] [phone] Jun, Bipolar 1 disorder F31.9 ; A nxiety F41.9 ; Overactive bladder N32.81 ; Chronic headaches R51 ; Degenerative disc disease at L5-S1 level M51.36 ; Hypopotassemia E87.6 ; Anemia D64.9 and Morbid obesity due to excess calories E66.01 [place] [address] [address] Jun, [place] [address] [address] May, Overactive bladder N32.81 [place] [address] [address] May, Bipolar 1 disorder F31.9 ; A nemia D64.9 ; Overactive bladder N32.81 ; Chronic headaches R51 ; Hypopotassemia E87.6 ; Degenerative disc disease at L5-S1 level M51.36 and Uncomplicated asthma, unspecified asthma severity J45.909 [place] [address] [address] May, [place] [address] [address] May, Chronic headaches R51 [place] [address] [address] Apr, Chronic headaches R51 [place] [address] [address] March, Chronic headaches R51 [place] [address] [address] March, [place] [address] [place] [id number] [place] [phone] Feb, Chronic headaches R51 and De generative disc disease at L5-S1 level M51.36 [place] [address] [place] [id number] [place] [id number] Feb, Hypopotassemia E87.6 ; Anemi a D64.9 ; Overactive bladder N32.81 ; Chronic headaches R51 and Degenerative disc disease at L5-S1 level M51.36 [place] [address] [facility] [id number] [address] [place] [phone] 07 Feb, 2016 Bipolar 1 disorder F31.9 ; A nemia D64.9 and Overactive bladder N32.81 [facility] [address] [facility] [id number] [address] [place] [phone] 06 Feb, 2016 Scabies B86 ; Bipolar 1 diso rder F31.9 ; Anemia D64.9 ; Overactive bladder N32.81 ; Chronic headaches R51 ; Degenerative disc disease at L5-S1 level M51.36 and Wellness examination Z00.00 [place] [address] [facility] [id number] [address] [place] [phone] Feb, [place] [address] [facility] [id number] [address] [place] [phone] Oct, IMMUNIZATIONS No Known Immunizations SOCIAL HISTORY Never Assessed REASON FOR VISIT Hydrocodone 05/03 PLAN OF CARE VITAL SIGNS MEDICATIONS Medication Instructions Dosage Frequency Start Date End Date Duration S tatus Hydrocodone-Ibuprofen 7.5-200 MG Orally every 6 hrs 1 tablet as nee ded 6h Apr, 28 days Active RESULTS No Results PROCEDURES [...] interstem replaced 05/2016 Hospitalization History [facility]- Headache 12/18/2017
--- OUTSIDE RECORDS SUMMARY | 2019-11-27 06:48 | XMS REPORT ---
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 Name Role Phone JIM Luo Unavailable PROBLEMS Type Condition ICD9-CM Code ARY71-PP Code Onset Dates Condition S tatus SNOMED Code Problem Hypopotassemia E87.6 Active 51900 004 Problem Uncomplicated asthma, unspecified asthma severity J45.909 Active 732430051 Problem Degenerative disc disease at L5-S1 level M51.36 Active 06830563 Problem Obesity, morbid E66.01 Active 2381 18868 Problem Other chronic pain G89.29 Active 8 3215741 Problem Acquired equinus deformity of left foot M21.6X2 Active 76740960 Problem Anxiety F41.9 Active 90384174 Problem Morbid obesity due to excess calories E66.01 Active 534344832 Problem Hypoxemia R09.02 Active 591896703 Problem Overactive bladder N32.81 Active 2 21060254 Problem Bipolar 1 disorder F31.9 Active 3 54181781 Problem Chronic headaches R51 Active 43 9823153 Problem Pure hyperglyceridemia E78.1 Active 043073215 Problem Anemia D64.9 Active 575698254 ALLERGIES Substance Reaction Event Type Date Status Sulfamethoxazole-Trimethoprim Unknown Drug Allergy Apr, 201 7 Active Penicillin V Potassium Unknown [...] Apr, Active ENCOUNTERS Encounter Location Date Diagnosis [facility] [address] [facility] [id number] [address] [place] [address] Feb, Medicare annual wellness vis it, initial Z00.00 [place] [address] [address] Jan, [place] [address] [address] Dec, Frequent headaches R51 and D egenerative disc disease at L5-S1 level M51.36 [place] [address] [address] Nov, [facility] [place] [address] [address] Nov, Chronic intractable headache , unspecified headache type R51 [facility] [place] [address] [address] Nov, Chronic headaches R51 and BM I 45.0-49.9, adult Z68.42 [place] [address] [address] Nov, [place] [address] [address] Nov, Obesity, morbid E66.01 ; Unc omplicated asthma, unspecified asthma severity J45.909 ; Anxiety F41.9 ; Pure hyperglyceridemia E78.1 and Family history of diabetes mellitus Z83.3 [place] [address] [address] Oct, Bronchitis J40 [place] [address] [address] Oct, Chronic headaches R51 [place] [address] [address] Sep, [place] [address] [address] Sep, Chronic headaches R51 ; Othe r chronic pain G89.29 ; Anemia D64.9 and Obesity, morbid E66.01 [place] [address] [place] [address] Aug, Acute suppurative otitis med ia of right ear without spontaneous rupture of tympanic membrane, recurrence not specified H66.001 [facility] [address] [id number] [address] [place] [address] Aug, Other chronic pain G89.29 [facility] [address] [id number] [address] [place] [address] Jul, Degenerative disc disease at L5-S1 level M51.36 [facility] [address] [id number] [address] [place] [phone] 07 Jul, 2017 Other chronic pain G89.29 an d Sprain of deltoid ligament of left ankle, subsequent encounter S93.422D [facility] [address] [id number] [address] [place] [address] Jul, Degenerative disc disease at L5-S1 level M51.36 [facility] [address] [id number] [address] [place] [address] Jun, [facility] [address] [id number] [address] [place] [address] Jun, Degenerative disc disease at L5-S1 level M51.36 [facility] [address] [id number] [address] [place] [address] Jun, [facility] [address] [id number] [address] [place] [address] Jun, [facility] [address] [id number] [address] [place] [address] Jun, [facility] [address] [id number] [address] [place] [address] May, [facility] [address] [id number] [address] [place] [address] May, [facility] [address] [id number] [address] [place] [address] May, Rib pain on left side R07.81 [place] [address] [place] [id number] [address] [place] [address] Apr, Morbid obesity due to excess calories E66.01 [place] [address] [address] Apr, Gastroenteritis K52.9 [place] [address] [address] Apr, Degenerative disc disease at L5-S1 level M51.36 [place] [address] [address] March, Degenerative disc disease at L5-S1 level M51.36 [place] [address] [address] March, Bipolar 1 disorder F31.9 ; A nemia D64.9 ; Hypopotassemia E87.6 ; Uncomplicated asthma, unspecified asthma severity J45.909 ; Anxiety F41.9 ; Chronic headaches R51 and Degenerative disc disease at L5-S1 level M51.36 [place] [address] [address] March, Degenerative disc disease at L5-S1 level M51.36 [place] [address] [address] March, Degenerative disc disease at L5-S1 level M51.36 [place] [address] [address] March, Uncomplicated asthma, unspec ified asthma severity J45.909 ; Hypoxemia R09.02 ; Chronic headaches R51 and Degenerative disc disease at L5-S1 level M51.36 [place] [address] [address] March, [place] [address] [address] Feb, Acquired equinus deformity o f left foot M21.6X2 [facility] [address] [facility] [id number] [address] [place] [address] Feb, Degenerative disc disease at L5-S1 level M51.36 [facility] [address] [facility] [id number] [address] [place] [address] Feb, Degenerative disc disease at L5-S1 level M51.36 [facility] [address] [facility] [id number] [address] [place] [address] Jan, Degenerative disc disease at L5-S1 level M51.36 [facility] [address] [facility] [id number] [address] [place] [address] Jan, Degenerative disc disease at L5-S1 level M51.36 [facility] [address] [facility] [id number] [address] [place] [address] Dec, Degenerative disc disease at L5-S1 level M51.36 [facility] [address] [place] [id number] [address] [place] [address] Dec, Overactive bladder N32.81 an d Degenerative disc disease at L5-S1 level M51.36 [facility] [address] [place] [id number] [address] [place] [address] Dec, Degenerative disc disease at L5-S1 level M51.36 [facility] [address] [place] [id number] [address] [place] [address] Dec, Degenerative disc disease at L5-S1 level M51.36 [facility] [address] [facility] [id number] [address] [place] [address] Nov, [facility] [address] [facility] [id number] [address] [place] [address] Nov, Chronic headaches R51 [facility] [address] [facility] [id number] [address] [place] [address] Nov, Degenerative disc disease at L5-S1 level M51.36 [facility] [address] [place] [id number] [address] [place] [address] Nov, Left upper quadrant pain R10 .12 [place] [address] [address] Nov, Degenerative disc disease at L5-S1 level M51.36 [place] [address] [place] [id number] [place] [address] Nov, Degenerative disc disease at L5-S1 level M51.36 [place] [address] [address] Nov, Degenerative disc disease at L5-S1 level M51.36 [place] [address] [address] Nov, Degenerative disc disease at L5-S1 level M51.36 [place] [address] [address] Nov, Degenerative disc disease at L5-S1 level M51.36 [place] [address] [address] Oct, Degenerative disc disease at L5-S1 level M51.36 [place] [address] [address] Sep, Degenerative disc disease at L5-S1 level M51.36 [place] [address] [address] Sep, Degenerative disc disease at L5-S1 level M51.36 ; Bipolar 1 disorder F31.9 ; Chronic headaches R51 ; Hypopotassemia E87.6 ; Uncomplicated asthma, unspecified asthma severity J45.909 ; Anxiety F41.9 ; Overactive bladder N32.81 and Anemia D64.9 [place] [address] [place] [id number] [place] [address] Sep, Degenerative disc disease at L5-S1 level M51.36 [place] [address] [address] Aug, [facility] [address] [facility] [id number] [address] [place] [address] Aug, Degenerative disc disease at L5-S1 level M51.36 ; Chronic headaches R51 ; Bipolar 1 disorder F31.9 ; Overactive bladder N32.81 ; Anxiety F41.9 and Anemia D64.9 [facility] [address] [facility] [id number] [address] [place] [address] 24 Aug, 2016 Degenerative disc disease at L5-S1 level M51.36 [facility] [address] [facility] [id number] [address] [place] [address] 18 Aug, 2016 [facility] [address] [place] [id number] [place] [phone] 14 Aug, 2016 [facility] [address] [facility] [id number] [address] [place] [address] 10 Aug, 2016 Degenerative disc disease at L5-S1 level M51.36 [facility] [address] [place] [id number] [address] [place] [address] 28 Jul, 2016 Degenerative disc disease at L5-S1 level M51.36 [facility] [address] [place] [id number] [address] [place] [phone] 27 Jul, 2016 [facility] [address] [facility] [id number] [address] [place] [id number] 23 Jul, 2016 [facility] [address] [place] [id number] [place] [address] 22 Jul, 2016 Degenerative disc disease at L5-S1 level M51.36 ; Pure hyperglyceridemia E78.1 ; Bipolar 1 disorder F31.9 ; Anemia D64.9 ; Overactive bladder N32.81 ; Hypopotassemia E87.6 ; Anxiety F41.9 ; Mild intermittent asthma without complication J45.20 and Chronic headaches R51 [facility] [address] [facility] [id number] [address] [place] [address] 15 Jul, 2016 [facility] [address] [place] [id number] [place] [address] Jul, [facility] [address] [facility] [id number] [address] [place] [address] Jun, [facility] [address] [facility] [id number] [address] [place] [address] Jun, Bipolar 1 disorder F31.9 ; A nxiety F41.9 ; Overactive bladder N32.81 ; Chronic headaches R51 ; Degenerative disc disease at L5-S1 level M51.36 ; Hypopotassemia E87.6 ; Anemia D64.9 and Morbid obesity due to excess calories E66.01 [facility] [address] [facility] [id number] [address] [place] [address] Jun, [facility] [address] [place] [id number] [address] [place] [address] May, Overactive bladder N32.81 [facility] [address] [facility] [id number] [address] [place] [address] May, Bipolar 1 disorder F31.9 ; A nemia D64.9 ; Overactive bladder N32.81 ; Chronic headaches R51 ; Hypopotassemia E87.6 ; Degenerative disc disease at L5-S1 level M51.36 and Uncomplicated asthma, unspecified asthma severity J45.909 [facility] [address] [place] [id number] [address] [place] [phone] May, [facility] [address] [facility] [id number] [address] [place] [address] May, Chronic headaches R51 [facility] [address] [facility] [id number] [address] [place] [phone] Apr, Chronic headaches R51 [facility] [address] [facility] [id number] [address] [place] [address] March, Chronic headaches R51 [facility] [address] [facility] [id number] [address] [place] [phone] March, [facility] [address] [place] [id number] [address] [place] [address] Feb, Chronic headaches R51 and De generative disc disease at L5-S1 level M51.[address] [address] Feb, Hypopotassemia E87.6 ; Anemi a D64.9 ; Overactive bladder N32.81 ; Chronic headaches R51 and Degenerative disc disease at L5-S1 level M51.[address] [address] 07 Feb, 2016 Bipolar 1 disorder F31.9 ; A nemia D64.9 and Overactive bladder N32.[address] [address] Feb, Scabies B86 ; Bipolar 1 diso rder F31.9 ; Anemia D64.9 ; Overactive bladder N32.81 ; Chronic headaches R51 ; Degenerative disc disease at L5-S1 level M51.36 and Wellness examination Z00.00 [place] [address] [place] [id number] [address] [place] [address] Feb, [address] [address] Oct, IMMUNIZATIONS No Known Immunizations SOCIAL HISTORY Never Assessed REASON FOR VISIT Weight management - Pt states she was sick last week and had to see another doc tor due to provider being out of office. - Morris HARE, Pt states that she is serrano ving a problem keeping her weight down even when she is watching what she eats a nd how much. Wants to see about seeing a fire alarm inspector. PLAN OF CARE Activity Details Follow Up 6 Weeks Reason:diet monitor VITAL SIGNS Height 65.0 in 2017-05-25 Weight 280.0 lbs 2017-05-25 Temperature 98.3 degrees Fahrenheit 2017-05-25 Heart Rate 104 bpm 2017-05-25 Respiratory Rate 20 2017-05-25 BMI 46.59 kg/m2 2017-05-25 Blood pressure systolic 138 mmHg 2017-05-25 Blood pressure diastolic 81 mmHg 2017-05-25 MEDICATIONS Medication Instructions Dosage Frequency Start Date End Date Duration S tatus Albuterol Sulfate HFA 108 (90 Base) MCG/ACT Inhalation every 4 hrs 2 puffs as needed 4h May, Active Seroquel 200 mg Orally Once a day 1 tablet at bedtime 24h Active Hydrocodone-Ibuprofen 7.5-200 MG Orally every 6 hrs 1 tablet as nee ded 6h Apr, 28 days Active Topamax 200 mg Orally Twice a day 1 tablet 12h Feb, 30 days Active Ondansetron 8 MG Orally 3 times a day PRN 1 tablet on the tongue and allow to dissolve Apr, 07 days Active Potassium Chloride [facility] 20 MEQ Orally Twice a day 1 tablet 12h Active Neurontin 600 MG Orally Three times a day 1 tablet 8h Active Ferrous Sulfate 325 MG Orally 3 times a day 1 tablet 8h Active Effexor XR 150 MG Orally Once a day 1 capsule with food 24h Active RESULTS No Results PROCEDURES Procedure Date Ordered Result Body Site [facility] VISIT ESTABLISHED PATIENT May 25, 2017 INSTRUCTIONS MEDICATIONS ADMINISTERED No Known [...] interstem replaced 05/2016 Hospitalization History [facility]- Headache 12/18/2017
--- OUTSIDE RECORDS SUMMARY | 2019-11-27 06:48 | XMS REPORT | Continuity of Care Document ---
Author Organization Unknown Address Unknown Phone Unavailable Allergies Active Description Code Type Severity Reaction Onset Reported/Identified Relationship to Patient Clinical Status Yes codeine [id number] Drug Allergy Unknown N/A 02/04/2016 Yes meloxicam [id number] Drug Allergy Unknown N/A 02/04/2016 Yes morphine [id number] Drug Allergy Unknown N/A 02/04/2016 Yes PAPER TAPE PAPER TAPE Unknown N/A 02/04/2016 Yes Penicillins [id number] Drug Aller gy Unknown N/A 02/04/2016 Yes PINK DYE PINK DYE Un known N/A 02/04/2016 Yes PURPLE DYE PURPLE DYE Unknown N/A 02/04/2016 Yes Sulfa (Sulfonamide Antibiotics) [id number] Drug Allergy Unknown N/A 016 Medications There is no data. Problems Date Dx Coded Attending Type Code Diagnosis Diagnosed By 02/04/2016 CHARIS ZAPATA DO Ot R07.89 OTHER CHEST PAIN 02/04/2016 CHARIS ZAPATA DO Ot R07.89 09/01/2016 JIM BOWMAN Ot M51.36 OTHER INTERVERTEBRAL DISC DEGENERATION, 09/21/2016 JIM BOWMAN Ot M51.36 OTHER INTERVERTEBRAL DISC DEGENERATION, 09/29/2016 JIM BOWMAN Ot M51.36 OTHER INTERVERTEBRAL DISC DEGENERATION, 09/29/2016 JIM BOWMANP Ot M51.36 OTHER INTERVERTEBRAL DISC DEGENERATION, 11/10/2016 JIM BOWMAN Ot M51.36 OTHER INTERVERTEBRAL DISC DEGENERATION, 11/10/2016 ZEKE KEVIN MD Ot M47.816 SPONDYLOSIS W/O MYELOPATHY OR RADICULOPA 11/29/2016 ZEKE KEVIN MD Ot M47.816 SPONDYLOSIS W/O MYELOPATHY OR RADICULOPA 12/15/2016 JIM BOWMAN Ot R10.12 LEFT UPPER QUADRANT PAIN 12/21/2016 BOWMAN, JIM A SERVICE COORDINATOR [facility] Ot M51.36 OTHER INTERVERTEBRAL DISC DEGENERATION, 12/21/2016 JIM BOWMAN SERVICE CO[facility]IN[facility] Ot R10.12 LEFT UPPER QUADRANT PAIN 01/04/2017 JIM BOWMAN SERVICE COORDIN[facility] Ot R10.12 LEFT UPPER QUADRANT PAIN 01/16/2017 JIM BOWMAN SERVICE CO[facility]IN[facility] Ot R10.12 LEFT UPPER QUADRANT PAIN 01/16/2017 JIM BOWMAN SERVICE CO[facility]IN[facility] Ot R10.12 LEFT UPPER QUADRANT PAIN 01/31/2017 JIM BOWMAN SERVICE CO[facility] Ot R10.12 LEFT UPPER QUADRANT PAIN 02/09/2017 ZEKE KEVIN MD Ot M47.816 SPONDYLOSIS W/O MYELOPATHY OR RADICULOPA 02/09/2017 ZEKE KEVIN MD Ot Z79.899 OTHER INTERMEDIATE (CURRENT) DRUG THERAPY 02/14/2017 ZEKE KEVIN MD Ot M47.816 SPONDYLOSIS W/O MYELOPATHY OR RADICULOPA 02/14/2017 ZEKE KEVIN MD Ot Z79.899 OTHER MAMMOGRAPHY SUPERVISOR (CURRENT) DRUG THERAPY 03/02/2017 ZEKE KEVIN MD Ot M47.816 SPONDYLOSIS W/O MYELOPATHY OR RADICULOPA 03/02/2017 ZEKE KEVIN MD Ot M53. 3 SACROCOCCYGEAL DISORDERS, NOT ELSEWHERE 03/02/2017 ZEKE KEVIN MD Ot Z79.899 OTHER MAMMOGRAPHY SUPERVISOR (CURRENT) DRUG THERAPY 06/30/2017 JIM BOWMAN SERVICE [facility] Ot M51.36 OTHER INTERVERTEBRAL DISC DEGENERATION, 06/30/2017 JIM BOWMAN SERVICE CO[facility]IN[facility] Ot R10.12 LEFT UPPER QUADRANT PAIN 06/30/2017 JIM BOWMAN SERVICE CO[facility]IN[facility] Ot R10.12 LEFT UPPER QUADRANT PAIN 07/01/2017 LUANNE RICH, CHRISTOFER Garcia Ot F31.9 BIPOLAR DISORDER, UNSPECIFIED 07/01/2017 LUANNE RICH, CHRISTOFER Garcia Ot G43.909 MIGRAINE, UNSP, NOT INTRACTABLE, WITHOUT 07/01/2017 LUANNE RICH, CHRISTOFER Garcia Ot J45.909 UNSPECIFIED ASTHMA, UNCOMPLICATED 07/01/2017 LUANNE RICH, CHRISTOFER Garcia Ot M47.9 SPONDYLOSIS, UNSPECIFIED 07/01/2017 CHRISTOFER STROUD MD Ot M79.89 OTHER SPECIFIED SOFT TISSUE DISORDERS 07/01/2017 CHRISTOFER STROUD MD Ot S93.402A SPRAIN OF UNSPECIFIED LIGAMENT OF LEFT A 07/01/2017 CHRISTOFER STROUD MD Ot S93.602A UNSPECIFIED SPRAIN OF LEFT FOOT, INITIAL 07/01/2017 CHRISTOFER STROUD MD Ot X58.XXXA EXPOSURE TO OTHER SPECIFIED FACTORS, INI 07/01/2017 CHRISTOFER STROUD MD Ot Z90.710 ACQUIRED ABSENCE OF BOTH CERVIX AND UTER 07/01/2017 CHRISTOFER STROUD MD Ot Z98.890 OTHER SPECIFIED POSTPROCEDURAL STATES 07/02/2017 CHRISTOFER STROUD MD Ot F31.9 BIPOLAR DISORDER, UNSPECIFIED 07/02/2017 CHRISTOFER STROUD MD Ot G43.909 MIGRAINE, UNSP, NOT INTRACTABLE, WITHOUT 07/02/2017 CHRISTOFER STROUD MD Ot J45.909 UNSPECIFIED ASTHMA, UNCOMPLICATED 07/02/2017 CHRISTOFER STROUD MD Ot M47.9 SPONDYLOSIS, UNSPECIFIED 07/02/2017 CHRISTOFER STROUD MD Ot M79.89 OTHER SPECIFIED SOFT TISSUE DISORDERS 07/02/2017 CHRISTOFER STROUD MD Ot S93.402A SPRAIN OF UNSPECIFIED LIGAMENT OF LEFT A 07/02/2017 CHRISTOFER STROUD MD Ot S93.602A UNSPECIFIED SPRAIN OF LEFT FOOT, INITIAL 07/02/2017 CHRISTOFER STROUD MD Ot X58.XXXA EXPOSURE TO OTHER SPECIFIED FACTORS, INI 07/02/2017 CHRISTOFER STROUD MD Ot Z90.710 ACQUIRED ABSENCE OF BOTH CERVIX AND UTER 07/02/2017 CHRISTOFER STROUD MD Ot Z98.890 OTHER SPECIFIED POSTPROCEDURAL STATES 12/18/2017 CHEYENNE PATTERSON APRN Ot F31 .9 BIPOLAR DISORDER, UNSPECIFIED 12/18/2017 CHEYENNE PATTERSON ANIMAL NURSE Ot J45.909 UNSPECIFIED ASTHMA, UNCOMPLICATED 12/18/2017 CHEYENNE PATTEROSN ANIMAL NURSE Ot M47 .9 SPONDYLOSIS, UNSPECIFIED 12/18/2017 CHEYENNE PATTERSON ANIMAL NURSE Ot R51 HEADACHE 12/18/2017 CHEYENNE PATTERSON ANIMAL NURSE Ot Z90.710 ACQUIRED ABSENCE OF BOTH CERVIX AND UTER 12/18/2017 JIM BOWMAN SERVICE CO[facility]IN[facility] Ot M51.36 OTHER INTERVERTEBRAL DISC DEGENERATION, 12/18/2017 JIM BOWMAN SERVICE CO[facility]IN[facility] Ot R10.12 LEFT UPPER QUADRANT PAIN 12/18/2017 JIM BOWMAN A SERVICE CO[facility]IN[facility] Ot R10.12 LEFT UPPER QUADRANT PAIN 03/07/2018 ROOPA BOWMANE A SERVICE CO[facility]IN[facility] Ot M51.36 OTHER INTERVERTEBRAL DISC DEGENERATION, 03/07/2018 ROOPA BOWMANE A SERVICE COORDIN[facility] Ot R10.12 LEFT UPPER QUADRANT PAIN 03/07/2018 ROOPA BOWMANE A SERVICE COORDIN[facility] Ot R10.12 LEFT UPPER QUADRANT PAIN 03/08/2018 ROOPA BOWMANE A SERVICE CO[facility]IN[facility] Ot M51.36 OTHER INTERVERTEBRAL DISC DEGENERATION, 03/08/2018 JIM BOWMAN A SERVICE CO[facility]IN[facility] Ot R10.12 LEFT UPPER QUADRANT PAIN 03/08/2018 ROOPA BOWMANE A SERVICE CO[facility]IN[facility] Ot R10.12 LEFT UPPER QUADRANT PAIN 09/25/2019 MORAIMA MCCLAIN ANIMAL NURSE Ot Z12.31 ENCNTR SCREEN MAMMOGRAM FOR MALIGNANT NE 10/01/2019 JIM BOWMAN SERVICE CO[facility]IN[facility] Ot M51.36 OTHER INTERVERTEBRAL DISC DEGENERATION, 10/01/2019 JIM BOWMAN SERVICE CO[facility]IN[facility] Ot R10.12 LEFT UPPER QUADRANT PAIN 10/01/2019 JIM BOWMAN SERVICE CO[facility]IN[facility] Ot R10.12 LEFT UPPER QUADRANT PAIN 10/01/2019 MORAIMA MCCLAIN ANIMAL NURSE Ot Z12.31 ENCNTR SCREEN MAMMOGRAM FOR MALIGNANT NE 10/01/2019 MORAIMA MCCLAIN ANIMAL NURSE Ot Z12.31 ENCNTR SCREEN MAMMOGRAM FOR MALIGNANT NE 10/03/2019 MORAIMA MCCLAIN ANIMAL NURSE Ot Z12.31 ENCNTR SCREEN MAMMOGRAM FOR MALIGNANT NE 10/13/2019 MORAIMA MCCLAIN ANIMAL NURSE Ot Z12.31 ENCNTR SCREEN MAMMOGRAM FOR MALIGNANT NE 11/01/2019 JAMES RICH, RILEY Duenas Ot F31. 9 BIPOLAR DISORDER, UNSPECIFIED 11/01/2019 JAMES RICH, RILEY Duenas Ot G43.909 MIGRAINE, UNSP, NOT INTRACTABLE, WITHOUT 11/01/2019 RILEY RAMIREZ MD Ot J45.909 UNSPECIFIED ASTHMA, UNCOMPLICATED 11/01/2019 RILEY RAMIREZ MD Ot M25.512 PAIN IN LEFT SHOULDER 11/01/2019 RILEY RAMIREZ MD Ot M25.552 PAIN IN LEFT HIP 11/01/2019 RILEY RAMIREZ MD Ot M25.562 PAIN IN LEFT KNEE 11/01/2019 RILEY RAMIREZ MD Ot M54. 5 LOW BACK PAIN 11/01/2019 RILEY RAMIREZ MD Ot R40.2142 COMA SCALE, EYES OPEN, SPONTANEOUS, EMR 11/01/2019 RILEY RAMIREZ MD Ot R40.2252 COMA SCALE, BEST VERBAL RESPONSE, ORIENT 11/01/2019 RILEY RAMIREZ MD Ot R40.2362 COMA SCALE, BEST MOTOR RESPONSE, OBEYS C 11/01/2019 RILEY RAMIREZ MD Ot W17.2XXA FALL INTO HOLE, INITIAL ENCOUNTER 11/01/2019 RILEY RAMIREZ MD Ot Z87.440 PERSONAL HISTORY OF URINARY (TRACT) INFE 11/01/2019 RILEY RAMIREZ MD Ot Z87.891 PERSONAL HISTORY OF NICOTINE DEPENDENCE 11/01/2019 RILEY RAMIREZ MD Ot Z88. 0 ALLERGY STATUS TO PENICILLIN 11/01/2019 RILEY RAMIREZ MD Ot Z88. 1 ALLERGY STATUS TO OTHER ANTIBIOTIC AGENT 11/01/2019 RILEY RAMIREZ MD Ot Z88. 2 ALLERGY STATUS TO SULFONAMIDES STATUS 11/01/2019 RILEY RAMIREZ MD Ot Z88. 5 ALLERGY STATUS TO NARCOTIC AGENT STATUS 11/01/2019 RILEY RAMIREZ MD Ot Z88. 8 ALLERGY STATUS TO OTH DRUG/MEDS/BIOL SUB 11/01/2019 RILEY RAMIREZ MD Ot Z90.710 ACQUIRED ABSENCE OF BOTH CERVIX AND UTER 11/06/2019 RILEY RAMIREZ MD Ot F31. 9 BIPOLAR DISORDER, UNSPECIFIED 11/06/2019 RILEY RAMIREZ MD Ot G43.909 MIGRAINE, UNSP, NOT INTRACTABLE, WITHOUT 11/06/2019 RILEY RAMIREZ MD Ot J45.909 UNSPECIFIED ASTHMA, UNCOMPLICATED 11/06/2019 RILEY RAMIREZ MD Ot M25.512 PAIN IN LEFT SHOULDER 11/06/2019 RILEY RAMIREZ MD Ot M25.552 PAIN IN LEFT HIP 11/06/2019 RILEY RAMIREZ MD Ot M25.562 PAIN IN LEFT KNEE 11/06/2019 RILEY RAMIREZ MD Ot M54. 5 LOW BACK PAIN 11/06/2019 RILEY RAMIREZ MD Ot R40.2142 COMA SCALE, EYES OPEN, SPONTANEOUS, EMR 11/06/2019 RILEY RAMIREZ MD Ot R40.2252 COMA SCALE, BEST VERBAL RESPONSE, ORIENT 11/06/2019 RILEY RAMIREZ MD Ot R40.2362 COMA SCALE, BEST MOTOR RESPONSE, OBEYS C 11/06/2019 RILEY RAMIREZ MD Ot W17.2XXA FALL INTO HOLE, INITIAL ENCOUNTER 11/06/2019 RILEY RAMIREZ MD Ot Z87.440 PERSONAL HISTORY OF URINARY (TRACT) INFE 11/06/2019 RILEY RAMIREZ MD Ot Z87.891 PERSONAL HISTORY OF NICOTINE DEPENDENCE 11/06/2019 RILEY RAMIREZ MD Ot Z88. 0 ALLERGY STATUS TO PENICILLIN 11/06/2019 RILEY RAMIREZ MD Ot Z88. 1 ALLERGY STATUS TO OTHER ANTIBIOTIC AGENT 11/06/2019 RILEY RAMIREZ MD Ot Z88. 2 ALLERGY STATUS TO SULFONAMIDES STATUS 11/06/2019 RILEY RAMIREZ MD Ot Z88. 5 ALLERGY STATUS TO NARCOTIC AGENT STATUS 11/06/2019 RILEY RAMIREZ MD Ot Z88. 8 ALLERGY STATUS TO OTH DRUG/MEDS/BIOL SUB 11/06/2019 RILEY RAMIREZ MD Ot Z90.710 ACQUIRED ABSENCE OF BOTH CERVIX AND UTER Procedures There is no data. Results Test Result Range LIPID PANEL - 11/29/17 10:43 CHOLESTEROL, TOTAL 182 mg/dL <200 HDL CHOLESTEROL 43 mg/dL >50 TRIGLYCERIDES 126 mg/dL <150 LDL-CHOLESTEROL 115 mg/dL (calc) NRG CHOL/HDLC RATIO 4.2 (calc) <5.0 NON HDL CHOLESTEROL 139 mg/dL (calc) <13 0 PDM - 09 PANEL (PROFILE 1) - 08/02/18 10 :23 Prescribed Drug 1 Hydrocodone NRG Creatinine 63.5 mg/dL > or = 20.0 pH 7.48 4.5 - 9.0 Oxidant NEGATIVE mcg/mL <200 Amphetamines NEGATIVE ng/mL <500 medMATCH Amphetamines CONSISTENT NRG Benzodiazepines NEGATIVE ng/mL <100 medMATCH Benzodiazepines CONSISTENT NRG Marijuana Metabolite NEGATIVE ng/mL <20 medMATCH Marijuana Metab CONSISTENT NRG Cocaine Metabolite NEGATIVE ng/mL <150 medMATCH Cocaine Metab CONSISTENT NRG Opiates POSITIVE ng/mL <100 Oxycodone NEGATIVE ng/mL <100 medMATCH Oxycodone CONSISTENT NRG COMMENT NRG Codeine NEGATIVE ng/mL <50 medMATCH Codeine CONSISTENT NRG Hydrocodone 894 ng/mL <50 medMATCH Hydrocodone CONSISTENT NRG Hydromorphone 189 ng/mL <50 medMATCH Hydromorphone CONSISTENT NRG Morphine NEGATIVE ng/mL <50 medMATCH Morphine CONSISTENT NRG Norhydrocodone 1237 ng/mL <50 medMATCH Norhydrocodone CONSISTENT NRG Barbiturates NEGATIVE ng/mL <300 medMATCH Barbiturates CONSISTENT NRG Methadone Metabolite NEGATIVE ng/mL <100 medMATCH Methadone Metab CONSISTENT NRG Phencyclidine NEGATIVE ng/mL <25 medMATCH Phencyclidine CONSISTENT NRG Encounters ACCT No. Visit Date/Time Discharge Status Pt. Type Provider Facility Loc./Unit Complaint [id number] 11/13/2019 13:30:00 11/13/2019 23:59:5 9 CLS Outpatient CHARIS MALCOLM APRN [facility] [id number] 08/02/2018 09:20:00 Document Registration [id number] 11/29/2017 10:20:00 Document Registration [id number] 10/31/2019 21:13:00 00:51:00 DIS Emergency JAMES RICH, RILEY Duenas [facility] ER FALL-PAIN IN LEFT HIP,S HOULDER AND LEG [id number] 10/01/2019 12:59:00 23:59:59 CLS Outpatient MORAIMA MCCLAIN APRN [facility] RAD SCREENING [id number] 03/28/2018 08:19:00 23:59:59 CLS Preadmit CHARIS MALCOLM SERVICE COORDINATOR [facility] REHAB LUMBAGO WITHOUT RADICUL OPATHY [id number] 12/18/2017 19:31:00 018 21:23:00 DIS Emergency CHEYENNE PATTERSON APRN [facility] ER HEADACHE [id number] 06/30/2017 23:43:00 017 01:33:00 DIS Emergency CHRISTOFER STROUD MD [facility] ER L FOOT SWOLLEN [id number] 03/02/2017 08:16:00 017 09:26:00 DIS Outpatient ZEKE KEVIN MD [facility] CARD SACROCOCCYGEAL DISORDER [id number] 02/09/2017 09:33:00 017 10:52:00 DIS Outpatient ZEKE KEVIN MD [facility] CARD SPONDYLOSIS WO MYELOPAT HY OR [id number] 12/21/2016 08:59:00 017 23:59:59 CLS Outpatient JIM BOWMAN SERVICE COORDIN[facility] RAD LUQ PAIN [id number] 12/14/2016 10:39:00 017 23:59:59 CLS Outpatient JIM BOWMAN SERVICE COORDIN[facility] RAD PAINFUL AREA JU ST UNDER L RIB, MID CLAVICULAR LINE [id number] 11/10/2016 13:06:00 016 13:44:00 DIS Outpatient ZEKE KEVIN MD [facility] CARD SPONDYLOSIS [id number] 08/31/2016 14:25:00 016 23:59:59 CLS Outpatient JIM BOWMAN SERVICE COORDIN[facility] RAD DDD L5-S1 LEVEL M51.36 [id number] 02/03/2016 23:54:00 016 01:07:00 DIS Emergency CHARIS ZAPATA DO [facility] ER CP
== END 2019-11-01 00:51 | disposition home or self-care (01) ==
LOC: EDUNIT# 21:12 → ER 21:13
DX: M54.5 Low back pain (principal); M25.562 Pain in left knee; M25.552 Pain in left hip; M25.512 Pain in left shoulder; J45.909 Unspecified asthma, uncomplicated; G43.909 Migraine, unspecified, not intractable, without status migrainosus; F31.9 Bipolar disorder, unspecified; R40.2142 Coma scale, eyes open, spontaneous, at arrival to emergency department; R40.2252 Coma scale, best verbal response, oriented, at arrival to emergency department; R40.2362 Coma scale, best motor response, obeys commands, at arrival to emergency department; Z87.440 Personal history of urinary (tract) infections; Z88.0 Allergy status to penicillin; Z88.2 Allergy status to sulfonamides; Z88.5 Allergy status to narcotic agent; Z88.1 Allergy status to other antibiotic agents; Z88.8 Allergy status to other drugs, medicaments and biological substances; Z87.891 Personal history of nicotine dependence; Z90.710 Acquired absence of both cervix and uterus; W17.2XXA Fall into hole, initial encounter
CPT/HCPCS: 72100; 73030; 73502; 73562; 96372

== ENCOUNTER → 2020-01-01 | Outpatient (CLI) | payer MEDICARE, MEDICAID ==
[~2020-01-01] MED LIST changes: +CYCL10TA9 PO
--- NOTE | 2020-01-01 10:02 | Diagnostic Imaging Report ---
PROCEDURE: MRI left joint lower extremity without contrast. TECHNIQUE: Multiplanar, multisequence non contrast-enhanced MRI of the left lower extremity was accomplished. INDICATION: Left knee pain, fall in August 2019. COMPARISON: Radiographs from 10/31/2019 FINDINGS: No acute fracture or dislocation is seen in the left knee. Alignment appears normal. There is motion artifact on multiple sequences. There is a small left knee joint effusion. There is a very small Alexander's cyst. The articular cartilage in the patellofemoral compartment demonstrates mild surface irregularity with no large full-thickness defects. Articular cartilage in the medial and lateral compartments demonstrate mild surface irregularity with no large full-thickness defects. There are minimal marginal osteophytes. There is no tear seen in the medial or lateral menisci. The medial collateral ligament is intact. The lateral ligamentous complex is intact. The extensor mechanism and the retinacula are intact. The soft tissues about the knee are otherwise unremarkable. IMPRESSION: 1. No meniscus or ligament tear is seen in the left knee. 2. Small left knee joint effusion with a minimal Alexander's cyst. Dictated by: Dictated on workstation # [id number]
== END ==
LOC: RAD 07:32
PROVIDERS: ATTEND Nurse Practitioner Community Health
DX: M25.462 Effusion, left knee (principal); M71.22 Synovial cyst of popliteal space [Baker], left knee
CPT/HCPCS: 73721

== ENCOUNTER 2020-05-31 05:43 | Outpatient (RCR) | payer MEDICARE, MEDICAID ==
[~2020-05-31] VITALS: Ht 162.6 cm; Wt 136.4 kg
[~2020-05-31 05:43] MED LIST changes: +FERR159T2 PO; +HYDR-3990 PO; +METF-399 PO; +OXYB-52 PO; -OXYB5TAB3 PO; +QUET300T44 PO; +SEMA0.25 SQ
== END 2020-05-31 14:15 | disposition home or self-care (01) ==
LOC: PREOP 05:43
PROVIDERS: ATTEND Orthopaedic Surgery
DX: Z01.818 Encounter for other preprocedural examination (principal); Z20.828 Contact with and (suspected) exposure to other viral communicable diseases
CPT/HCPCS: 87635

== ENCOUNTER 2020-06-02 07:42 | Day surgery (SDC) | payer MEDICARE, MEDICAID ==
--- NOTE | 2020-05-25 11:55 | HISTORY AND PHYSICAL ---
DATE OF SERVICE: ADMISSION HISTORY AND PHYSICAL This will be for outpatient surgery on 06/02/2020 for left knee arthroscopy. HISTORY OF PRESENT ILLNESS: The patient is a 45-year-old female with complaints of progressively worsening left knee pain. She reports pain on the medial aspect of her left knee, which has been present progressive. She has undergone multiple injections, which have provided temporary relief of her symptoms. She also has dysplasia of her hip and lumbar disk disease but reports that the knee feels isolated from these entities. REVIEW OF SYSTEMS: No chest pain, no shortness of breath, no dysuria. PAST MEDICAL HISTORY: Anemia, iron deficiency, asthma, depression, osteoarthritis, bipolar disorder, lumbar disk disease, migraines headaches, diabetes mellitus, fatigue, posttraumatic stress disorder. PAST SURGICAL HISTORY: Ear drum, cholecystectomy, herniorrhaphy, hysterectomy. FAMILY HISTORY: Significant for kidney stones. PRIMARY CARE PROVIDER: [facility], [facility]. MEDICATIONS: Effexor, gabapentin, Seroquel, Topamax, Ditropan, hydrocodone, ProAir, iron, potassium, metformin, Ozempic, Vistaril. ALLERGIES: TAPE, PENICILLIN, AMOXICILLIN, CODEINE, SULFA, MORPHINE, MOBIC. SOCIAL HISTORY: The patient denies alcohol and tobacco use. RADIOGRAPHS: Revealed mild medial patellofemoral joint space narrowing. PHYSICAL EXAMINATION: GENERAL: The patient is well developed, well-nourished, in no acute distress. HEENT: Normocephalic, atraumatic. Pupils are equal, round, reactive to light. Oropharynx is clear. NECK: Supple, no lymphadenopathy. LUNGS: Clear to auscultation bilaterally. HEART: Regular rate and rhythm. ABDOMEN: Soft, nontender, nondistended. EXTREMITIES: The left knee demonstrates tenderness along the medial joint line. She has pain medially with Diann's. She has moderate effusion. She has pain with patellar loading. She has negative anterior and posterior drawer. No varus or valgus laxity. She has pain in her groin with internal rotation of the hip, but has no pain elicited in the knee. She has negative straight leg raising. IMPRESSION: Chondromalacia patella, left knee with medial meniscus tear. PLAN: Left knee arthroscopy, partial medial meniscectomy and chondroplasty. The risks, benefits, options, ramifications and recovery have been discussed at length with the patient. She understands and wishes to proceed. Job ID: [id number] DocumentID: [id number] Dictated Date: 05/25/2020 09:12:47 Steam Drier Tender Date: 05/25/2020 10:07:37 Dictated By: GERI CASTRO MD
[2020-06-02] VITALS (11 sets, daily range): BP systolic 122–145; BP diastolic 71–96
[~2020-06-02] VITALS: Ht 162.6 cm; Wt 136.4 kg
[2020-06-02] MEDS ORDERED: HYDROcodone/APAP 7.5 MG/325 MG (LORTAB, LORCET PLUS) TABLET PO PRN (07:45)
[2020-06-02] MEDS ORDERED: LACTATED RINGERS 1,000 ML IV PRN (07:57)
[2020-06-02] MEDS ORDERED: CLINDAMYCIN 600 MG/50 ML IVPB 50 ML IV ONE (08:00)
--- OUTSIDE RECORDS SUMMARY | 2020-06-02 08:00 | XMS REPORT ---
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 Name Role Phone AIDEN HUTTON Unavailable PROBLEMS Type Condition ICD9-CM Code [id number] Code Onset Dates Condition S tatus SNOMED Code Problem Overactive bladder N32.81 Active 2 03340663 Problem Pure hyperglyceridemia E78.1 Active 548879227 Problem Anemia D64.9 Active 387423776 Problem Chronic headaches R51 Active 43 7795206 Problem Degenerative disc disease at L5-S1 level M51.36 Active 44958362 Problem Hypopotassemia E87.6 Active 34965 004 Problem Type 2 diabetes mellitus wit h hyperglycemia, without long-term current use of insulin E11.65 Active 80606006 Problem Bipolar I disorder with depression F31.9 Active 24990916 Problem Morbid obesity due to excess calories E66.01 Active 580515031 Problem Hypoxemia R09.02 Active 313829778 Problem Obesity, morbid E66.01 Active 2381 87317 Problem Other chronic pain G89.29 Active 8 1472222 Problem Moderate persistent asthma with exacerbation J45.4 1 Active 072256494 Problem Chronic fatigue R53.82 Active 8422 9001 Problem Chronic post-traumatic stress disorder (PTSD) F43. 12 Active 886682129 Problem Unsteady gait R26.81 Active 287404 08 Problem Migraine without aura and without status migrain osus, not intractable G43.009 Active 078209664 Problem Body mass index (BMI) of 45.0-49.9 in adult Z68.42 Active 060705683 Problem Controlled type 2 diabetes m ellitus without complication, without long- term current use of insulin E11.9 Active 817392453 Problem Pain in left knee M25.562 Active 30 417320 Problem Anxiety F41.9 Active 13137832 Problem Primary osteoarthritis of left knee M17.12 Active 243317823283342 Problem Uncomplicated asthma, unspecified asthma severity J45.909 Active 907477898 Problem Acquired equinus deformity of left foot M21.6X2 Active 82354172 Problem Mild intermittent asthma with acute exacerbation J 45.21 Active 010601964 Problem Hip dysplasia Q65.89 Active 350491 001 Problem Bipolar 1 disorder F31.9 Active 3 12427123 Problem Type 2 diabetes mellitus with unspecified complications E11.8 Active 89018580 ALLERGIES Substance Reaction Event Type Date Status [...] 9 Active ENCOUNTERS Encounter Location Date Diagnosis [place] [address] [id number] [place] [address] March, [place] [address] [address] [facility] [id number] [address] [place] [phone] Feb, Controlled type 2 diabetes m ellitus without complication, without long-term current use of insulin E11.9 [place] [address] [address] [facility] [id number] [address] [place] [address] Jan, Controlled type 2 diabetes m ellitus without complication, without long-term current use of insulin E11.9 [place] [address] [address] [facility] [id number] [address] [place] [address] Jan, Primary osteoarthritis of le ft knee M17.12 [place] [address] [address] [facility] [id number] [address] [place] [address] Jan, [place] [address] [address] [facility] [id number] [address] [place] [address] Jan, Other chronic pain G89.29 an d Pain in left knee M25.562 [place] [address] [address] [facility] [id number] [address] [place] [phone] Jan, [place] [address] [id number] [address] [place] [id number] 09 Jan, 2020 Bronchitis J40 [facility] [address] [id number] [address] [place] [phone] 06 Jan, 2020 [facility] [address] [id number] [address] [place] [id number] 27 Dec, 2019 Type 2 diabetes mellitus wit h unspecified complications E11.8 and Bipolar 1 disorder F31.9 [facility] [address] [id number] [address] [place] [address] 19 Dec, 2019 Other chronic pain G89.29 an d Pain in left knee M25.562 [facility] [address] [id number] [address] [place] [address] 19 Dec, 2019 [facility] [address] [id number] [address] [place] [address] 05 Dec, 2019 Other chronic pain G89.29 an d Pain in left knee M25.562 [facility] [address] [id number] [address] [place] [id number] 29 Nov, 2019 Other chronic pain G89.29 an d Pain in left knee M25.562 [facility] [address] [id number] [address] [place] [address] Nov, Strain of left hip, initial encounter S76.012A [facility] [address] [id number] [address] [place] [id number] 16 Nov, 2019 Controlled type 2 diabetes josh ferrara without complication, without long-term current use of insulin E11.9 [facility] [address] [id number] [address] [place] [id number] 15 Nov, 2019 Strain of left hip, initial encounter S76.012A [place] [address] [id number] [address] [place] [id number] 08 Nov, 2019 Strain of left hip, initial encounter S76.012A [facility] [address] [id number] [address] [place] [address] Nov, Strain of left hip, initial encounter S76.012A [facility] [address] [id number] [address] [place] [address] Oct, Strain of left hip, initial encounter S76.012A [facility] [address] [id number] [address] [place] [address] Oct, Strain of left hip, initial encounter S76.012A and Sprain of other ligament of left ankle, initial encounter S93.492A [place] [address] [id number] [address] [place] [address] Oct, Left hip pain M25.552 [place] [address] [id number] [address] [place] [phone] Oct, [place] [address] [id number] [address] [place] [id number] Sep, [facility] [address] [id number] [address] [place] [address] Sep, Pure hyperglyceridemia E78.1 and Controlled type 2 diabetes mellitus without complication, without long-term current use of insulin E11.9 [facility] [id number] [place] [id number] Sep, [facility] [address] [id number] [address] [place] [address] Sep, Controlled type 2 diabetes m ellitus without complication, without long-term current use of insulin E11.9 ; Coughing R05 and Hip dysplasia Q65.89 [facility] [address] [id number] [address] [place] [address] Sep, Skin tag L91.8 [facility] [address] [id number] [address] [place] [phone] Sep, [facility] [address] [id number] [address] [place] [phone] Sep, [place] [address] [address] [facility] [id number] [address] [place] [phone] Sep, [place] [address] [address] [facility] [id number] [address] [place] [address] Aug, Well woman exam without gyne cological exam Z00.00 ; Screening for breast cancer Z12.39 and Candidiasis of breast B37.89 [place] [address] [address] [facility] [id number] [address] [place] [phone] Aug, Controlled type 2 diabetes m ellitus without complication, without long-term current use of insulin E11.9 [place] [address] [address] [facility] [id number] [address] [place] [address] Jul, Encounter for immunization Z 23 [place] [address] [address] [place] [id number] [address] [place] [address] Jul, Controlled type 2 diabetes m ellitus without complication, without long-term current use of insulin E11.9 [place] [address] [address] [place] [id number] [address] [place] [phone] Jun, [place] [address] [place] [id number] [address] [place] [address] Jun, [place] [address] [place] [id number] [address] [place] [phone] May, Encounter for Medicare annua l wellness [...] asthma severity J45.909 and Overactive bladder N32.81 [place] [address] [address] [place] [id number] [address] [place] [phone] May, [place] [address] [address] [place] [id number] [address] [place] [address] May, Controlled type 2 diabetes m ellitus without complication, without long-term current use of insulin E11.9 [place] [address] [address] [facility] [id number] [address] [place] [address] Apr, [place] [address] [address] [facility] [id number] [address] [place] [phone] March, Bipolar I disorder with depr ession F31.9 ; Morbid obesity E66.01 ; Type 2 diabetes mellitus with hyperglycemia, without long-term current use of insulin E11.65 ; Pain in left shoulder M25.512 and Other chronic pain G89.29 [place] [address] [address] [facility] [id number] [address] [place] [phone] March, Controlled type 2 diabetes m ellitus without complication, without long-term current use of insulin E11.9 [facility] [address] [facility] [id number] [address] [place] [address] Jan, Mild intermittent asthma wit h acute exacerbation J45.21 [place] [address] [address] [facility] [id number] [address] [place] [address] Jan, Controlled type 2 diabetes m ellitus without complication, without long-term current use of insulin E11.9 [facility] [address] [facility] [id number] [address] [place] [phone] Jan, Mild intermittent asthma wit h acute exacerbation J45.21 ; Bronchitis J40 ; Chest congestion R09.89 and Morbid obesity E66.01 [place] [address] [address] [facility] [id number] [address] [place] [address] Jan, Controlled type 2 diabetes m ellitus without complication, without long-term current use of insulin E11.9 [place] [address] [address] [facility] [id number] [address] [place] [address] Dec, Viral upper respiratory infe ction J06.9 ; Cough R05 and BMI 45.0- 49.9, adult Z68.42 [place] [address] [address] [place] [id number] [address] [place] [id number] 04 Dec, 2018 [facility] [address] [id number] [address] [place] [id number] 04 Dec, 2018 Type 2 diabetes mellitus wit h hyperglycemia, without long-term current use of insulin E11.65 ; Migraine without aura and without status migrainosus, not intractable G43.009 and BMI 45.0-49.9, adult Z68.42 [place] [address] [id number] [address] [place] [address] Nov, Degenerative disc disease at L5-S1 level M51.36 [place] [address] [address] [facility] [id number] [address] [place] [address] Nov, [place] [address] [address] [facility] [id number] [address] [place] [address] Nov, Degenerative disc disease at L5-S1 level M51.36 [place] [address] [address] [facility] [id number] [address] [place] [address] Oct, [place] [address] [address] [facility] [id number] [address] [place] [address] Oct, Controlled type 2 diabetes m ellitus without complication, without long-term current use of insulin E11.9 [place] [address] [address] [facility] [id number] [address] [place] [address] Oct, Degenerative disc disease at L5-S1 level M51.36 [place] [address] [id number] [address] [place] [address] Sep, Degenerative disc disease at L5-S1 level M51.36 [place] [address] [id number] [address] [place] [address] Sep, Degenerative disc disease at L5-S1 level M51.36 [facility] [address] [facility] [id number] [address] [place] [address] Sep, Controlled type 2 diabetes m ellitus without complication, without long-term current use of insulin E11.9 [place] [address] [id number] [address] [place] [address] Sep, [facility] [address] [id number] [address] [place] [phone] Sep, [facility] [address] [facility] [id number] [address] [place] [address] Aug, Bipolar I disorder with depr ession F31.9 and Chronic post-traumatic stress disorder (PTSD) F43.12 [facility] [address] [id number] [address] [place] [address] Aug, [facility] [address] [id number] [address] [place] [address] Aug, [place] [address] [address] [facility] [id number] [address] [place] [address] Aug, Acute pain of left wrist M25 .532 and Type 2 diabetes mellitus with hyperglycemia, without long-term current use of insulin E11.65 [place] [address] [facility] [id number] [address] [place] [phone] Aug, [facility] [address] [id number] [address] [place] [address] Aug, [facility] [address] [facility] [id number] [address] [place] [phone] Aug, Bipolar I disorder with depr ession F31.9 and Chronic post-traumatic stress disorder (PTSD) F43.12 [place] [address] [id number] [address] [place] [address] Aug, Degenerative disc disease at L5-S1 level M51.36 [facility] [address] [id number] [address] [place] [id number] Jul, Controlled type 2 diabetes m ellitus without complication, without long-term current use of insulin E11.9 [facility] [address] [facility] [id number] [address] [place] [address] Jul, Frequent headaches R51 [facility] [address] [place] [id number] [address] [place] [phone] Jul, [place] [address] [address] 19 Jul, 2018 Bipolar I disorder with depr ession F31.9 and Chronic post-traumatic stress disorder (PTSD) F43.12 [place] [address] [address] 10 Jul, 2018 Degenerative disc disease at L5-S1 level M51.36 [place] [address] [address] 07 Jul, 2018 Other chronic pain G89.29 ; Dysuria R30.0 ; Degenerative disc disease at L5-S1 level M51.36 ; Uncomplicated asthma, unspecified asthma severity J45.909 ; Vagina, candidiasis B37.3 ; Glucose found in urine on examination R81 ; Family history of diabetes mellitus Z83.3 and Controlled type 2 diabetes mellitus without complication, without long-term current use of insulin E11.9 [place] [address] [place] [id number] [address] [place] [address] Jun, Degenerative disc disease at L5-S1 level M51.36 [place] [address] [address] Jun, [place] [address] [address] Jun, Medicare annual wellness vis it, initial Z00.00 [place] [address] [place] [id number] [address] [place] [address] Jun, Degenerative disc disease at L5-S1 level M51.36 [place] [address] [place] [id number] [address] [place] [address] Jun, Bipolar I disorder with depr ession F31.9 and Chronic post-traumatic stress disorder (PTSD) F43.12 [place] [address] [address] [place] [id number] [address] [place] [address] Jun, Degenerative disc disease at L5-S1 level M51.36 [facility] [address] [id number] [address] [place] [address] 07 Jun, 2018 Degenerative disc disease at L5-S1 level M51.36 [facility] [address] [facility] [id number] [address] [place] [address] 26 May, 2018 [facility] [address] [facility] [id number] [address] [place] [address] 16 May, 2018 Degenerative disc disease at L5-S1 level M51.36 [facility] [address] [id number] [address] [place] [address] 27 Apr, 2018 Degenerative disc disease at L5-S1 level M51.36 [facility] [address] [facility] [id number] [address] [place] [address] 18 Apr, 2018 Unsteady gait R26.81 ; Chron ic fatigue R53.82 ; SOB (shortness of breath) R06.02 and Moderate persistent asthma with exacerbation J45.41 [place] [address] [facility] [id number] [address] [place] [phone] 13 Apr, 2018 Degenerative disc disease at L5-S1 level M51.36 [place] [address] [facility] [id number] [address] [place] [address] 05 Apr, 2018 Medicare annual wellness vis it, initial Z00.00 [facility] [address] [facility] [id number] [address] [place] [phone] 10 Mar, 2018 [place] [address] [facility] [id number] [address] [place] [address] March, [facility] [address] [facility] [id number] [address] [place] [address] Feb, Medicare annual wellness vis it, initial Z00.00 ; Bipolar 1 disorder F31.9 ; Low back pain M54.5 and Other chronic pain G89.29 [facility] [address] [facility] [id number] [address] [place] [address] Jan, [place] [address] [address] Dec, Frequent headaches R51 and D egenerative disc disease at L5-S1 level M51.36 [place] [address] [address] Nov, [facility] [address] [address] Nov, Chronic intractable headache , unspecified headache type R51 [facility] [address] [address] Nov, Chronic headaches R51 and BM I 45.0-49.9, adult Z68.42 [place] [address] [address] Nov, [place] [address] [address] Nov, Obesity, morbid E66.01 ; Unc omplicated asthma, unspecified asthma severity J45.909 ; Anxiety F41.9 ; Pure hyperglyceridemia E78.1 and Family history of diabetes mellitus Z83.3 [place] [address] [address] Oct, Bronchitis J40 [place] [address] [address] Oct, Chronic headaches R51 [place] [address] [address] Sep, [place] [address] [address] Sep, Chronic headaches R51 ; Othe r chronic pain G89.29 ; Anemia D64.9 and Obesity, morbid E66.01 [place] [address] [address] Aug, Acute suppurative otitis med ia of right ear without spontaneous rupture of tympanic membrane, recurrence not specified H66.001 [facility] [address] [id number] [address] [place] [address] Aug, Other chronic pain G89.29 [facility] [address] [id number] [address] [place] [address] 18 Jul, 2017 Degenerative disc disease at L5-S1 level M51.36 [facility] [address] [id number] [address] [place] [address] 07 Jul, 2017 Other chronic pain G89.29 an d Sprain of deltoid ligament of left ankle, subsequent encounter S93.422D [facility] [address] [id number] [address] [place] [address] 05 Jul, 2017 Degenerative disc disease at L5-S1 level M51.36 [facility] [address] [id number] [address] [place] [address] Jun, [facility] [address] [id number] [address] [place] [address] Jun, Degenerative disc disease at L5-S1 level M51.36 [facility] [address] [id number] [address] [place] [address] Jun, [facility] [address] [id number] [address] [place] [address] Jun, [facility] [address] [id number] [address] [place] [address] Jun, [facility] [address] [id number] [address] [place] [address] May, [facility] [address] [id number] [address] [place] [address] May, [facility] [address] [id number] [address] [place] [address] May, Rib pain on left side R07.81 [facility] [address] [id number] [address] [place] [address] Apr, Morbid obesity due to excess calories E66.01 [place] [id number] [place] [address] Apr, Gastroenteritis K52.9 [place] [address] [place] [id number] [place] [address] Apr, Degenerative disc disease at L5-S1 level M51.36 [place] [address] [address] March, Degenerative disc disease at L5-S1 level M51.36 [place] [address] [address] March, Bipolar 1 disorder F31.9 ; A nemia D64.9 ; Hypopotassemia E87.6 ; Uncomplicated asthma, unspecified asthma severity J45.909 ; Anxiety F41.9 ; Chronic headaches R51 and Degenerative disc disease at L5-S1 level M51.36 [place] [address] [address] March, Degenerative disc disease at L5-S1 level M51.36 [place] [address] [address] March, Degenerative disc disease at L5-S1 level M51.36 [place] [address] [address] March, Uncomplicated asthma, unspec ified asthma severity J45.909 ; Hypoxemia R09.02 ; Chronic headaches R51 and Degenerative disc disease at L5-S1 level M51.36 [place] [address] [place] [id number] [address] [place] [address] March, [place] [address] [address] Feb, Acquired equinus deformity o f left foot M21.6X2 [place] [address] [place] [id number] [place] [address] Feb, Degenerative disc disease at L5-S1 level M51.36 [facility] [address] [id number] [address] [place] [address] Feb, Degenerative disc disease at L5-S1 level M51.36 [facility] [address] [facility] [id number] [address] [place] [address] Jan, Degenerative disc disease at L5-S1 level M51.36 [facility] [address] [facility] [id number] [address] [place] [address] Jan, Degenerative disc disease at L5-S1 level M51.36 [facility] [address] [facility] [id number] [address] [place] [id number] Dec, Degenerative disc disease at L5-S1 level M51.36 [facility] [address] [facility] [id number] [address] [place] [id number] Dec, Overactive bladder N32.81 an d Degenerative disc disease at L5-S1 level M51.36 [facility] [address] [facility] [id number] [address] [place] [id number] Dec, Degenerative disc disease at L5-S1 level M51.36 [facility] [address] [facility] [id number] [address] [place] [id number] Dec, Degenerative disc disease at L5-S1 level M51.36 [facility] [address] [place] [id number] [address] [place] [id number] Nov, [facility] [address] [facility] [id number] [address] [place] [id number] Nov, Chronic headaches R51 [facility] [facility] [address] [facility] [id number] [address] [place] [phone] Nov, Degenerative disc disease at L5-S1 level M51.36 [facility] [address] [facility] [id number] [address] [place] [phone] Nov, Left upper quadrant pain R10 .12 [facility] [address] [facility] [id number] [address] [place] [phone] Nov, Degenerative disc disease at L5-S1 level M51.36 [facility] [address] [phone] Nov, Degenerative disc disease at L5-S1 level M51.36 [facility] [address] [place] [id number] [place] [phone] Nov, Degenerative disc disease at L5-S1 level M51.36 [place] [address] [phone] Nov, Degenerative disc disease at L5-S1 level M51.36 [place] [address] [phone] Nov, Degenerative disc disease at L5-S1 level M51.36 [place] [address] [phone] Oct, Degenerative disc disease at L5-S1 level M51.36 [place] [address] [phone] Sep, Degenerative disc disease at L5-S1 level M51.36 [place] [address] [phone] Sep, Degenerative disc disease at L5-S1 level M51.36 ; Bipolar 1 disorder F31.9 ; Chronic headaches R51 ; Hypopotassemia E87.6 ; Uncomplicated asthma, unspecified asthma severity J45.909 ; Anxiety F41.9 ; Overactive bladder N32.81 and Anemia D64.9 [place] [address] [place] [id number] [address] [place] [phone] Sep, Degenerative disc disease at L5-S1 level M51.36 [place] [address] [phone] Aug, [place] [address] [phone] Aug, Degenerative disc disease at L5-S1 level M51.36 ; Chronic headaches R51 ; Bipolar 1 disorder F31.9 ; Overactive bladder N32.81 ; Anxiety F41.9 and Anemia D64.9 [facility] [address] [facility] [id number] [place] [phone] 24 Aug, 2016 Degenerative disc disease at L5-S1 level M51.36 [facility] [address] [place] [id number] [address] [place] [phone] 18 Aug, 2016 [facility] [address] [place] [id number] [place] [phone] 14 Aug, 2016 [facility] [address] [facility] [id number] [address] [place] [phone] 10 Aug, 2016 Degenerative disc disease at L5-S1 level M51.36 [facility] [address] [place] [id number] [place] [phone] 28 Jul, 2016 Degenerative disc disease at L5-S1 level M51.36 [facility] [address] [place] [id number] [address] [place] [phone] 27 Jul, 2016 [facility] [address] [place] [id number] [place] [phone] 23 Jul, 2016 [facility] [address] [place] [id number] [place] [phone] 22 Jul, 2016 Degenerative disc disease at L5-S1 level M51.36 ; Pure hyperglyceridemia E78.1 ; Bipolar 1 disorder F31.9 ; Anemia D64.9 ; Overactive bladder N32.81 ; Hypopotassemia E87.6 ; Anxiety F41.9 ; Mild intermittent asthma without complication J45.20 and Chronic headaches R51 [facility] [address] [facility] [id number] [address] [place] [phone] 15 Jul, 2016 [facility] [address] [place] [id number] [place] [phone] 07 Jul, 2016 [facility] [address] [place] [id number] [address] [place] [phone] Jun, [facility] [address] [place] [id number] [address] [place] [phone] Jun, Bipolar 1 disorder F31.9 ; A nxiety F41.9 ; Overactive bladder N32.81 ; Chronic headaches R51 ; Degenerative disc disease at L5-S1 level M51.36 ; Hypopotassemia E87.6 ; Anemia D64.9 and Morbid obesity due to excess calories E66.01 [facility] [address] [place] [id number] [place] [phone] Jun, [place] [address] [place] [id number] [place] [phone] May, Overactive bladder N32.81 [place] [address] [place] [id number] [place] [phone] May, Bipolar 1 disorder F31.9 ; A nemia D64.9 ; Overactive bladder N32.81 ; Chronic headaches R51 ; Hypopotassemia E87.6 ; Degenerative disc disease at L5-S1 level M51.36 and Uncomplicated asthma, unspecified asthma severity J45.909 [place] [address] [phone] May, [place] [address] [place] [id number] [place] [phone] May, Chronic headaches R51 [facility] [address] [place] [id number] [place] [phone] Apr, Chronic headaches R51 [facility] [address] [place] [id number] [place] [phone] March, Chronic headaches R51 [facility] [address] [place] [id number] [place] [phone] March, [facility] [address] [place] [id number] [place] [phone] Feb, Chronic headaches R51 and De generative disc disease at L5-S1 level M51.36 [facility] [address] [place] [id number] [place] [phone] 19 Feb, 2016 Hypopotassemia E87.6 ; Anemi a D64.9 ; Overactive bladder N32.81 ; Chronic headaches R51 and Degenerative disc disease at L5-S1 level M51.36 [place] [address] [facility] [id number] [address] [place] [phone] 07 Feb, 2016 Bipolar 1 disorder F31.9 ; A nemia D64.9 and Overactive bladder N32.81 [place] [address] [facility] [id number] [address] [place] [phone] 06 Feb, 2016 Scabies B86 ; Bipolar 1 diso rder F31.9 ; Anemia D64.9 ; Overactive bladder N32.81 ; Chronic headaches R51 ; Degenerative disc disease at L5-S1 level M51.36 and Wellness examination Z00.00 [place] [address] [facility] [id number] [address] [place] [phone] Feb, [place] [address] [facility] [id number] [address] [place] [phone] Oct, IMMUNIZATIONS Vaccine Route Administration Date Status DEXAMETHASONE 4MG/ML (PER 1 MG) IM Intramuscular February 21, 2019 Administered DEPO MEDROL 40 MG/ML IM Intramuscular February 21, 2019 Administer ed SOCIAL HISTORY Never Assessed REASON FOR VISIT EAR PAIN, COUGH--tcuppettRN, Pt was seen for this last week and prescribed antib iotics. Symptoms improved with antibotics, but now have returned with cough, con gestion, and ear fullness PLAN OF CARE Activity Details Follow Up as needed or reg fu with pc p Reason: VITAL SIGNS Height 65.0 in 2019-02-21 Weight 295 lbs 2019-02-21 Temperature 97.8 degrees Fahrenheit 2019-02-21 Heart Rate 110 bpm 2019-02-21 Respiratory Rate 20 2019-02-21 BMI 49.09 kg/m2 2019-02-21 Blood pressure systolic 110 mmHg 2019-02-21 Blood pressure diastolic 72 mmHg 2019-02-21 MEDICATIONS Medication Instructions Dosage Frequency Start Date End Date Duration S tatus Topamax 100 mg Orally Twice a day 2 tablets 12h 30 Active Hydrocodone-Ibuprofen 7.5-200 MG Orally every 6 hrs 1 tablet as nee ded 6h 15 Jan, 2019 28 days Active Effexor XR 150 MG Orally Once a day 1 capsule with food 24h Active Maxalt 10 MG Orally Once a day 1 tablet as needed one time 24h 2018 Active Ozempic 0.25 or 0.5 MG/DOSE Subcutaneous once weekly Inject 0.5 mg 28 Active Glucocard Expression Test - In Vitro 2 times a day test blood sugar 12h 10 Aug, 2018 Active Klor-Con M20 20MEQ 1 tablet 12h 30 Acti ve Vistaril 25 MG Orally every 8 hrs 1 capsule as needed 8h Jul 30 day(s) Active Zofran ODT 4 MG Orally every 8 hrs 1 tablet on the tongue and al low to dissolve 8h Nov, Active Seroquel 200 mg Orally Once a day 1 tablet at bedtime 24h Active Neurontin 600 MG Orally Three times a day 1 tablet 8h 30 Active Iron 325 (65 Fe) MG Orally twice a day 1 tablet 12h Active Metformin HCl 1000 mg Orally 2 times a day 1 tablet with a meal 12h Jul, 30 days Active Ventolin HFA 108 (90 Base) MCG/ACT Inhalation every 6 hrs 2 puffs a s needed 6h Jul, Active RESULTS No Results PROCEDURES Procedure Date Ordered Result Body Site [facility] VISIT ESTABLISHED PATIENT February 21, 2019 DEXAMETHASONE 4MG/ML (PER 1 MG) February 21, 2019 THER/PROPH/DIAG INJ, SC/IM February 21, 2019 DEPO MEDROL 40 MG/ML February 21, 2019 INSTRUCTIONS MEDICATIONS ADMINISTERED No Known Medications [...] cholecystectomy Surgical History hysteretomy partial left ovaries 2010 Surgical History Left hip interstem replaced 05/2016 Hospitalization History [facility]- Headache 12/18/2017 Hospitalization History ER for fall 11/01/19
--- OUTSIDE RECORDS SUMMARY | 2020-06-02 08:05 | XMS REPORT | Continuity of Care Document ---
Author Organization Unknown Address Unknown Phone Unavailable Allergies Active Description Code Type Severity Reaction Onset Reported/Identified Relationship to Patient Clinical Status Yes codeine [id number] Drug Allergy Unknown N/A 02/04/2016 Yes meloxicam [id number] Drug Allergy Unknown N/A 02/04/2016 Yes morphine [id number] Drug Allergy Unknown N/A 02/04/2016 Yes PAPER TAPE PAPER TAPE Unknown N/A 02/04/2016 Yes Penicillins [id number] Drug Aller gy Unknown N/A 02/04/2016 Yes PINK DYE PINK DYE Un known N/A 02/04/2016 Yes PURPLE DYE PURPLE DYE Unknown N/A 02/04/2016 Yes Sulfa (Sulfonamide Antibiotics) [id number] Drug Allergy Unknown N/A 016 Yes amoxicillin [id number] Drug Aller gy Unknown Hives 05/26/2020 Yes Penicillins [id number] Drug Aller gy Unknown Anaphylaxis 05/26/2020 Medications There is no data. Problems Date [...] W/O MYELOPATHY OR RADICULOPA 12/15/2016 JIM BOWMAN PARAMEDIC SUPERVISOR Ot R10.12 LEFT UPPER QUADRANT PAIN 12/21/2016 JIM BOWMAN PARAMEDIC SUPERVISOR Ot M51.36 OTHER INTERVERTEBRAL DISC DEGENERATION, 12/21/2016 JIM BOWMAN PARAMEDIC SUPERVISOR Ot R10.12 LEFT UPPER QUADRANT PAIN 01/04/2017 JIM BOWMAN PARAMEDIC SUPERVISOR Ot R10.12 LEFT UPPER QUADRANT PAIN 01/16/2017 JIM BOWMAN A PARAMEDIC SUPERVISOR Ot R10.12 LEFT UPPER QUADRANT PAIN 01/16/2017 JIM BOWMAN PARAMEDIC SUPERVISOR Ot R10.12 LEFT UPPER QUADRANT PAIN 01/31/2017 JIM BOWMAN PARAMEDIC SUPERVISOR Ot R10.12 LEFT UPPER QUADRANT PAIN 02/09/2017 ZEKE KEVIN MD, Ot M47.816 SPONDYLOSIS W/O MYELOPATHY OR RADICULOPA 02/09/2017 ZEKE KEVIN MD, Ot Z79.899 OTHER CLIMATOLOGY PROFESSOR (CURRENT) DRUG THERAPY 02/14/2017 ZEKE KEVIN MD, Ot M47.816 SPONDYLOSIS W/O MYELOPATHY OR RADICULOPA 02/14/2017 ZEKE KEVIN MD, Ot Z79.899 OTHER CLIMATOLOGY PROFESSOR (CURRENT) DRUG THERAPY 03/02/2017 ZEKE KEVIN MD, Ot M47.816 SPONDYLOSIS W/O MYELOPATHY OR RADICULOPA 03/02/2017 ZEKE KEVIN MD, Ot M53. 3 SACROCOCCYGEAL DISORDERS, NOT ELSEWHERE 03/02/2017 ZEKE KEVIN MD, Ot Z79.899 OTHER SENIOR CARE (CURRENT) DRUG THERAPY 06/30/2017 JIM BOWMAN PARAMEDIC SUPERVISOR Ot M51.36 OTHER INTERVERTEBRAL DISC DEGENERATION, 06/30/2017 JIM BOWMAN PARAMEDIC SUPERVISOR Ot R10.12 LEFT UPPER QUADRANT PAIN 06/30/2017 JIM BOWMAN PARAMEDIC SUPERVISOR Ot R10.12 LEFT UPPER QUADRANT PAIN 07/01/2017 LUANNE RICH, CHRISTOFER Garcia Ot F31.9 BIPOLAR DISORDER, UNSPECIFIED 07/01/2017 LUANNE RICH, CHRISTOFER Garcia Ot G43.909 MIGRAINE, UNSP, NOT INTRACTABLE, WITHOUT 07/01/2017 LUANNE RICH, CHRISTOFER Garcia Ot J45.909 UNSPECIFIED ASTHMA, UNCOMPLICATED 07/01/2017 CHRISTOFER STROUD MD Ot M47.9 SPONDYLOSIS, UNSPECIFIED 07/01/2017 CHRISTOFER STROUD [...] .9 BIPOLAR DISORDER, UNSPECIFIED 12/18/2017 CHEYENNE PATTERSON APRN Ot J45.909 UNSPECIFIED ASTHMA, UNCOMPLICATED 12/18/2017 CHEYENNE PATTERSON MECHANICAL PRODUCT DESIGN ENGINEER Ot M47 .9 SPONDYLOSIS, UNSPECIFIED 12/18/2017 CHEYENNE PATTERSON MECHANICAL PRODUCT DESIGN ENGINEER Ot R51 HEADACHE 12/18/2017 CHEYENNE PATTERSON MECHANICAL PRODUCT DESIGN ENGINEER Ot Z90.710 ACQUIRED ABSENCE OF BOTH CERVIX AND UTER 12/18/2017 JIM BOWMAN PARAMEDIC SUPERVISOR Ot M51.36 OTHER INTERVERTEBRAL DISC DEGENERATION, 12/18/2017 JIM BOWMAN A PARAMEDIC SUPERVISOR Ot R10.12 LEFT UPPER QUADRANT PAIN 12/18/2017 ROOPA BOWMANE A PARAMEDIC SUPERVISOR Ot R10.12 LEFT UPPER QUADRANT PAIN 03/07/2018 ROOPA BOWMANE A PARAMEDIC SUPERVISOR Ot M51.36 OTHER INTERVERTEBRAL DISC DEGENERATION, 03/07/2018 ROOPA BOWMANE A PARAMEDIC SUPERVISOR Ot R10.12 LEFT UPPER QUADRANT PAIN 03/07/2018 ROOPA BOWMANE A PARAMEDIC SUPERVISOR Ot R10.12 LEFT UPPER QUADRANT PAIN 03/08/2018 ROOPA BOWMANE A PARAMEDIC SUPERVISOR Ot M51.36 OTHER INTERVERTEBRAL DISC DEGENERATION, 03/08/2018 ROOPA BOWMANE A PARAMEDIC SUPERVISOR Ot R10.12 LEFT UPPER QUADRANT PAIN 03/08/2018 ROOPA BOWMANE A PARAMEDIC SUPERVISOR Ot R10.12 LEFT UPPER QUADRANT PAIN 09/25/2019 MORAIMA MCCLAIN MECHANICAL PRODUCT DESIGN ENGINEER Ot Z12.31 ENCNTR SCREEN MAMMOGRAM FOR MALIGNANT NE 10/01/2019 JIM BOWMAN PARAMEDIC SUPERVISOR Ot M51.36 OTHER INTERVERTEBRAL DISC DEGENERATION, 10/01/2019 JIM BOWMAN PARAMEDIC SUPERVISOR Ot R10.12 LEFT UPPER QUADRANT PAIN 10/01/2019 ROOPA BOWMANE A PARAMEDIC SUPERVISOR Ot R10.12 LEFT UPPER QUADRANT PAIN 10/01/2019 MORAIMA MCCLAIN MECHANICAL PRODUCT DESIGN ENGINEER Ot Z12.31 ENCNTR SCREEN MAMMOGRAM FOR MALIGNANT NE 10/01/2019 MORAIMA MCCLAIN MECHANICAL PRODUCT DESIGN ENGINEER Ot Z12.31 ENCNTR SCREEN MAMMOGRAM FOR MALIGNANT NE 10/03/2019 BERNARD MCCLAINTA D MECHANICAL PRODUCT DESIGN ENGINEER Ot Z12.31 ENCNTR SCREEN MAMMOGRAM FOR MALIGNANT NE 10/13/2019 MORAIMA MCCLAIN MECHANICAL PRODUCT DESIGN ENGINEER Ot Z12.31 ENCNTR SCREEN MAMMOGRAM FOR MALIGNANT NE 11/01/2019 JAMESRILEY GOLD MD Ot F31. 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 Results Test [...] NEGATIVE ng/mL <25 medMATCH Phencyclidine CONSISTENT NRG Coronavirus SARS-CoV-2 SO 2018 - 0 07:57 Coronavirus Ab [Units/volume] in Serum Negative Negative Encounters ACCT No. Visit Date/Time Discharge Status Pt. Type Provider Facility Loc./Unit Complaint [id number] 05/27/2020 11:30:00 05/27/2020 23:59:5 9 CLS Outpatient CHARIS MALCOLM APRN [facility] [id number] 08/02/2018 09:20:00 Document Registration [id number] 11/29/2017 10:20:00 Document Registration [id number] 05/31/2020 05:43:00 020 14:15:00 DIS Outpatient MATTHEW RICH, GERI Enrique [facility] PREOP LEFT KNEE SCOPE [id number] 01/01/2020 07:32:00 23:59:59 CLS Outpatient CHARIS MALCOLM [facility] RAD PAIN IN LT KNEE [id number] 10/31/2019 21:13:00 00:51:00 DIS Emergency JAMES RICH, RILEY Du[place] [facility] ER FALL-PAIN IN LEFT HIP,S HOULDER AND LEG [id number] 10/01/2019 12:59:00 23:59:59 CLS Outpatient MORAIMA MCCLAIN APRN [facility] RAD SCREENING [id number] 03/28/2018 08:19:00 018 23:59:59 CLS Preadmit CHARIS MALCOLM [facility] REHAB LUMBAGO WITHOUT RADICUL OPATHY [id number] 12/18/2017 19:31:00 018 21:23:00 DIS Emergency CHEYENNE PATTERSON APRN [facility] ER HEADACHE [id number] 06/30/2017 23:43:00 017 01:33:00 DIS Emergency CHRISTOFER STROUD MD [facility] ER L FOOT SWOLLEN [id number] 03/02/2017 08:16:00 017 09:26:00 DIS Outpatient EZKE KEVIN MD [facility] CARD SACROCOCCYGEAL DISORDER [id number] 02/09/2017 09:33:00 017 10:52:00 DIS Outpatient ZEKE KEVIN MD [facility] CARD SPONDYLOSIS WO MYELOPAT HY OR [id number] 12/21/2016 08:59:00 23:59:59 CLS Outpatient JIM BOWMAN PARAMEDIC SUPERVISOR [facility] RAD LUQ PAIN [id number] 12/14/2016 10:39:00 23:59:59 CLS Outpatient JIM BOWMAN PARAMEDIC SUPERVISOR [facility] RAD PAINFUL AREA JU ST UNDER L RIB, MID CLAVICULAR LINE [id number] 11/10/2016 13:06:00 13:44:00 DIS Outpatient HERBERTH RICH, ZEKE Duenas [facility] CARD SPONDYLOSIS [id number] 08/31/2016 14:25:00 23:59:59 CLS Outpatient JIM BOWMAN PARAMEDIC SUPERVISOR [facility] RAD DDD L5-S1 LEVEL M51.36 [id number] 02/03/2016 23:54:00 01:07:00 DIS Emergency CHARIS ZAPATA DO [facility] ER CP [id number] 06/02/2020 09:45:00 P CORETTA CASTRO MD, GERI Enrique [facility] SDC OA
[2020-06-02] MEDS ORDERED: morphine PF (DURAMORPH) 10 MG/10 ML AMP ONE (08:15)
[2020-06-02] MEDS ORDERED: CATHETER FLUSH 10 ML SYR IV PRN (08:15)
[2020-06-02] MEDS ORDERED: BUPIVACAINE 0.25% 30 ML (SENSORCAINE) VIAL ONE (08:16)
[2020-06-02] MEDS ORDERED: BUPIVACAINE 0.5% 30 ML (SENSORCAINE) VIAL ONE (08:16)
[2020-06-02] MEDS ORDERED: LACTATED RINGERS 1,000 ML IV ONE (08:26)
[2020-06-02] MEDS ORDERED: proPOfol 200 MG/20 ML (DIPRIVAN) VIAL IV ONE (08:26)
[2020-06-02] MEDS ORDERED: ROCURONIUM 10 MG/ML 5 ML SYRINGE IV ONE ×2 (08:26→08:47)
[2020-06-02] MEDS ORDERED: MIDAZOLAM 2 MG/2 ML (VERSED) VIAL ONE (08:26)
[2020-06-02] MEDS ORDERED: LIDOCAINE PF 2% 5 ML (XYLOCAINE) VIAL ONE (08:26)
[2020-06-02] MEDS ORDERED: fentaNYL INJECTION 100 MCG/2 ML AMP ONE (08:26)
[2020-06-02] MEDS ORDERED: ONDANSETRON 4 MG/2 ML (SDV) Z0FRAN ONE (08:26)
[2020-06-02] MEDS ORDERED: RT-ALBUINH IH (09:00)
--- NOTE | 2020-06-02 09:25 | Progress Note-Pre Operative ---
Pre-Operative Progress Note H&P Reviewed The H&P was reviewed, patient examined and no changes noted. Date Seen by Provider: Jun 02, 2020 Time Seen by Provider: 09:15 Date H&P Reviewed: Jun 02, 2020 Time H&P Reviewed: 09:11 Pre-Operative Diagnosis: left medial meniscal tear and chondromalacia GERI CASTRO MD Jun 02, 2020 09:24
--- NOTE | 2020-06-02 09:26 | Progress Note-Post Operative ---
Post-Operative Progess Note Surgeon (s)/Automatic Furnace Operator (s) Surgeon GERI CASTRO MD Automatic Furnace Operator: Jabari Matias Pre-Operative Diagnosis left medial meniscal tear and chondromalacia Post-Operative Diagnosis left chondromalacia of the medial femoral condyle and patella Procedure & Operative Findings Date of Procedure 06/02/20 Procedure Performed/Findings left knee arthroscopic chondroplasty of the medial femoral condyle and patella Anesthesia Type GETA Estimated Blood Loss Estimated blood loss (mL): minimal Specimens/Packing Specimens Removed none Packing: none GERI CASTRO MD Jun 02, 2020 09:26
[2020-06-02] MEDS ORDERED: SEVOFLURANE (ULTANE) 15 ML INHAL SOLN ONE (09:43)
[2020-06-02] MEDS ORDERED: HYDROmorphone 2 MG/ML VIAL (DILAUDID) ONE (09:53)
[2020-06-02] MEDS ORDERED: NEOSTIGMINE 3 MG/3 ML VIAL ONE (09:55)
[2020-06-02] MEDS ORDERED: GLYCOPYRROLATE 0.2 MG/ML (ROBINUL) 2 ML VIAL ONE (09:55)
[2020-06-02] MEDS ORDERED: fentaNYL INJECTION 100 MCG/2 ML AMP IVP ONE (10:30)
[2020-06-02] MEDS ORDERED: ONDANSETRON 4 MG/2 ML (SDV) Z0FRAN IVP PRN (10:30)
--- NOTE | 2020-06-02 11:20 | NUR ---
TO AMB SURG FROM PAR PER CART. ALERT, RATES LEFT KNEE PAIN 2. VIVIAN WRAPPED DSG D/I TO LEFT KNEE, ICE PACK ON, ELEVATED. CMS CHECKS WNL TO LEFT LEG. ON O2 AT 2L PER NC. PO FLUIDS PROVIDED.
[2020-06-02] MEDS ORDERED: HYDR-83 PO (12:01)
--- NOTE | 2020-06-02 12:16 | Physical Therapy Ortho Eval ---
PT Orthopedic Evaluation Type of Surgery Knee Scope (left) Prior Level of Function Current Living Status: Significant Other Locomotion (Upon Admit): Independent Established Durable Medical Eq: Front Wheeled Walker Subjective Subjective Agrees to PT. Reports she had outpt PT prior to surgery without success. Lives with her SO and a roommate. Entry Into Home: Stairs With Railing Steps Into Home: 4 Motor Control Motor Control: Motor Control WNL ROM ROM: WFL (except left knee flexion to 80 degrees) Strength Strength: Gen Weak,No Focal Deficit Transfer Transfers (B, C, W/C) (FIM): 4 (post treatment, pt is mod indep) Gait Gait Assistive Device: FWW Right Lower Extremity: Right Weight Bearing Status RLE: Full Weight Bearing Left Lower Extremity: Left Weight Bearing Status LLE: Weight Bearing/Tolerated Gait (FIM): 4 (post treatment, pt is mod indep (6)) Distance (FIM): 3=150 ft Summary/Comments Education and training in gait training with FWW, WBAT. Skilled cues for safety and sequencing withprogresion of ambulation without an AD. Training on level surfaces with turns and then up/down a step with FWW with cues for sequencing. Educated pt on use of handrail to go up/down her steps at home. Pt and SO demonstrated and verbalized understanding. Treatment Rendered Treatment: Therapeutic Exercises, Gait Train, Step Train Exercise Instruction: Quad Sets, Straight Leg Raise, Heel Slides Patient and SO demonstrated and verbalized understanding of HEP; correct perf ormance of exercises. Assessment/Goals Goal Time Frame: 1 Visit Plan Treatment Plan: Discharge Pt demonstrates correct performance of HEP and demonstrates safe gait on level and step surfaces with use of AD. SO present throughout and verbalized understanding. PT/Family Agrees to Plan: Yes Time Time In: 1140 Time Out: 1215 Total Billed Treatment Time: 35 Billed Treatment Time visit EVM 15 FA 20 ROXANE LONGORIA PT Jun 02, 2020 12:16
--- NOTE | 2020-06-02 12:35 | NUR ---
HAS BEEN UP WITH PHYSICAL THERAPY FOR WALKER TRAINING. PT STATES SHE HAS A WALKER AT HOME. TOLERATED WELL, PAIN RATES REMAINS 2. ALERT, STATES SHE IS READY FOR DISMISSAL. NO CHANGE IN SURGICAL SITE OR CMS ASSESSMENTS.
--- NOTE | 2020-06-02 14:42 | Anesthesia-General Post-Op ---
General Patient Condition Mental Status/LOC: Same as Preop Cardiovascular: Satisfactory Nausea/Vomiting: Absent Respiratory: Satisfactory Pain: Controlled Complications: Absent Post Op Complications Complications None Follow Up Care/Instructions Patient Instructions None needed. Anesthesia/Patient Condition Patient Condition Patient is doing well, no complaints, stable vital signs, no apparent adverse anesthesia problems. No complications reported per nursing. D/C home per [facility] Criteria: Yes RICHELLE SHELTON CRNA Jun 02, 2020 14:42
--- NOTE | 2020-06-02 14:50 | OPERATIVE REPORT ---
DATE OF SERVICE: 06/02/2020 PREOPERATIVE DIAGNOSES: 1. Left knee medial meniscus tear. 2. Left knee chondromalacia of the patella. POSTOPERATIVE DIAGNOSES: 1. Left knee chondromalacia of the medial femoral condyle. 2. Left knee chondromalacia of the patella. PROCEDURES: 1. Left knee arthroscopic chondroplasty of the medial femoral condyle. 2. Left knee arthroscopic chondroplasty of the patella. SURGEON: Benji Castro MD PRODUCTION TECH: Jabari Matias, who assisted throughout the procedure and closed the incisions. ANESTHESIA: General endotracheal by Jalil Jimenez. DRAINS: None. COMPLICATIONS: None. ESTIMATED BLOOD LOSS: Minimal. POSTOPERATIVE PLAN: Routine protocol. The patient was transferred to the recovery room awake and stable condition. STATEMENT OF MEDICAL NECESSITY: The patient is a 45-year-old female with complaints of left medial knee pain, catching, locking and swelling. The patient is tender along the medial joint line. She had pain medially with Diann's. She had patellofemoral crepitus as well as felt that she likely had a medial meniscus tear as well as chondromalacia. Due to functional impairment and failure to improve with conservative measures, the patient elected to proceed with surgical intervention. Examination under anesthesia revealed range of motion of 0/0/130 with negative Neptali, negative anterior and posterior drawer. No varus valgus laxity, negative pivot shift. Arthroscopic findings, the patella demonstrated grade II chondral flap inferiorly in an area. Trochlea demonstrated no gross chondral abnormalities. Medial and lateral gutters were clear. ACL and PCL were intact. Lateral compartment demonstrated no meniscal or chondral pathology. The medial compartment demonstrated grade II chondral flap with essential portion of femoral condyle in 10 x 15 area. PROCEDURE IN DETAIL: After risks and benefits of procedure were discussed and questions were answered, informed consent was signed and placed on chart. The operative site was confirmed in the preoperative holding area initialed by the surgeon. The patient was then transferred to the operating room. After adequate levels of general endotracheal anesthetic were obtained, a timeout was called, confirming the operative site. Left lower extremity was prepped and draped in the usual sterile fashion. The knee joint was injected with 60 mL fluid and standard inferolateral portal was placed for the arthroscope under direct visualization, inferior medial portal was created. The menisci and cruciates carefully probed with the above findings noted. The unstable chondral flaps in the patella were debrided with shaver back to a stable edge. Scope was redirected into the medial compartment chondral flaps of the medial femoral condyle were debrided with shaver back to a stable edge. The knee was copiously irrigated. The port sites were closed with 4-0 nylon in simple interrupted fashion. Portal sites were infiltrated with plain Marcaine. A soft dressing was applied. The patient was transferred to the recovery room awake and stable condition. Job ID: [id number] DocumentID: [id number] Dictated Date: 06/02/2020 10:14:29 Negotiations Director Date: 06/02/2020 14:49:42 Dictated By: BENJI CASTRO MD
== END 2020-06-02 12:35 | disposition home or self-care (01) ==
LOC: SDC 07:42
PROVIDERS: ATTEND Orthopaedic Surgery
DX: M22.42 Chondromalacia patellae, left knee (principal); S83.242A Other tear of medial meniscus, current injury, left knee, initial encounter; D50.9 Iron deficiency anemia, unspecified; J45.909 Unspecified asthma, uncomplicated; F32.9 Major depressive disorder, single episode, unspecified; M19.90 Unspecified osteoarthritis, unspecified site; G43.909 Migraine, unspecified, not intractable, without status migrainosus; M51.36 Other intervertebral disc degeneration, lumbar region; E11.9 Type 2 diabetes mellitus without complications; F43.10 Post-traumatic stress disorder, unspecified; E66.01 Morbid (severe) obesity due to excess calories; Z68.43 Body mass index [BMI] 50.0-59.9, adult; Z79.84 Long term (current) use of oral hypoglycemic drugs; Z79.899 Other long term (current) drug therapy; Z88.0 Allergy status to penicillin; Z88.2 Allergy status to sulfonamides; Z88.1 Allergy status to other antibiotic agents; Z88.5 Allergy status to narcotic agent; Z88.8 Allergy status to other drugs, medicaments and biological substances; Z91.041 Radiographic dye allergy status; Z91.048 Other nonmedicinal substance allergy status; Z90.710 Acquired absence of both cervix and uterus; Z90.49 Acquired absence of other specified parts of digestive tract; Z87.891 Personal history of nicotine dependence
CPT/HCPCS: 82962; 87081

== ENCOUNTER 2020-10-21 11:51 | Inpatient (IN) | payer MEDICARE, MEDICAID ==
[~2020-10-21] VITALS: Ht 162 cm; Wt 163.3 kg
[~2020-10-21 11:51] MED LIST changes: +ACHD5005 PO; +RT-ALBUINH IH
[2020-10-21] MEDS ORDERED: ASPIRIN 81 MG CHEW (CHILDREN'S ASA) ONE (11:53)
[2020-10-21] MEDS ORDERED: dilTIAZem DRIP PRE-MIX 125 ML IV ONE (11:53)
[2020-10-21] MEDS ORDERED: methylPREDNISolone 125 MG (Solu-MEDROL) VIAL IVP ONE (12:00)
[2020-10-21] MEDS: dilTIAZem DRIP PRE-MIX 125 ML IV SCH ×2 (12:10→23:24)
[2020-10-21] MEDS: RT-ALBUTEROL INHALER HFA (VENTOLIN HFA) 18 GM IH SCH (12:10)
[2020-10-21 12:12] VITALS: BP 125/83
[2020-10-21] MEDS ORDERED: NS IV 1000 ML 1,000 ML ONE ×2 (12:13→23:06)
[2020-10-21] MEDS ORDERED: NS IV 1000 ML 1,000 ML IV SCH (12:15)
[2020-10-21 12:17] LABS: BASOPHILS % (AUTO) 0 % (0-10); EOSINOPHILS % (AUTO) 0 % (0-10); HEMATOCRIT 42 % (35-52); LYMPHOCYTES # (AUTO) 0.9 10^3/uL (1.0-4.0); LYMPHOCYTES % (AUTO) 12 % (12-44); MEAN CORPUSCULAR HEMOGLOBIN 32 pg (25-34); MEAN CORPUSCULAR HGB CONC 31 g/dL (32-36); MEAN CORPUSCULAR VOLUME 103 fL (80-99); MEAN PLATELET VOLUME 10.1 fL (9.0-12.2); MONOCYTES # (AUTO) 0.3 10^3/uL (0.0-1.0); MONOCYTES % (AUTO) 5 % (0-12); NEUTROPHILS % (AUTO) 83 % (42-75); PLATELET COUNT 290 10^3/uL (130-400); WHITE BLOOD COUNT 7.3 10^3/uL (4.3-11.0)
[2020-10-21 12:18] LABS: ABG BASE EXCESS -3.6 MMOL/L (-2.5-2.5); ABG OXYGEN SATURATION 99 % (94-100); ABG PCO2 64 MMHG (35-45); ABG PO2 190 MMHG (79-93)
--- NOTE | 2020-10-21 12:19 | ED General ---
General Stated Complaint: RESP DISTRESS Source of Information: Patient, EMS Exam Limitations: No Limitations History of Present Illness Date Seen by Provider: Oct 21, 2020 Time Seen by Provider: 12:00 Initial Comments To ER by EMS from home with reports of cough and shortness of breath. This began on Sunday of this past week (today being ). She was seen at [facility] and diagnosed with bronchitis but states she was not swabbed for Covid. Upon EMS arrival she was in obvious respiratory distress, room air oxygen saturation not obtained, she was immediately given an albuterol nebulizer treatment during which her oxygen saturation was 88% on 6 L. She was then transitioned to CPAP and transported to the emergency room. Timing/Duration: 3-4 Days Severity: Moderate Associated Systoms: Cough, Fever/Chills Allergies and Home Medications Allergies Coded Allergies: Penicillins (Unverified Allergy, Unknown, Anaphylaxis, 05/26/20) Sulfa (Sulfonamide Antibiotics) (Unverified Allergy, Unknown, 02/04/16) amoxicillin (Verified Allergy, Unknown, Hives, 05/26/20) codeine (Unverified Allergy, Unknown, Pt has rec Hydrocodone/Ibu in the past, 06/02/20) meloxicam (Unverified Allergy, Unknown, 02/04/16) morphine (Unverified Allergy, Unknown, 02/04/16) Uncoded Allergies: PAPER TAPE (Allergy, Unknown, 02/04/16) PINK DYE (Allergy, Unknown, 02/04/16) PURPLE DYE (Allergy, Unknown, 02/04/16) Home Medications Albuterol Sulfate 1 Puff Puff, 2 PUFF IH Q4H, (Reported) 1 PUFF = 90 MCG Ferrous Sulfate, Dried Unknown Strength Tablet.er, 65 MG PO BID, (Reported) Gabapentin 600 Mg Tablet, 600 MG PO BID, (Reported) Hydrocodone/Acetaminophen 1 Each Tablet, 1 EACH PO Q4H Prescribed by: JUAN RYDER on 06/02/20 1201 Metformin HCl 1,000 Mg Tablet, 1,000 MG PO BID, (Reported) Oxybutynin Chloride 5 Mg Tab.er.24, 5 MG PO BID, (Reported) Potassium Chloride 20 Meq Tab.er.prt, 20 MEQ PO BID, (Reported) Quetiapine Fumarate 300 Mg Tablet, 300 MG PO HS, (Reported) Semaglutide 0.25 Mg/0.2 Ml Pen.injctr, 0.25 MG SQ WEEK, (Reported) Topiramate 100 Mg Tablet, 200 MG PO BID, (Reported) take 2 (100mg) tabs Venlafaxine HCl 150 Mg Cap.er.24h, 150 MG PO DAILY, (Reported) Patient Home Medication List Home Medication List Reviewed: Yes Review of Systems Review of Systems Constitutional: see HPI, chills, fever EENTM: see HPI Respiratory: see HPI, cough, short of breath, wheezing Cardiovascular: no symptoms reported Genitourinary: no symptoms reported Musculoskeletal: no symptoms reported Skin: no symptoms reported Psychiatric/Neurological: No Symptoms Reported Hematologic/Lymphatic: No Symptoms Reported Past Ojokixr-Trjxme-Fgtsya Hx Patient Social History Type Used: Cigarettes Former Smoker, Quit: March 26, 2005 2nd Hand Smoke Exposure: No Recent Hopitalizations: No Immunizations Up To Date Tetanus Booster (TDap): Unknown Date of Pneumonia Vaccine: Aug 26, 2017 Date of Influenza Vaccine: Aug 26, 2017 Seasonal Allergies Seasonal Allergies: No Past Medical History Surgeries: Yes (hernia) Abdominal, Ear Surgery, Gallbladder, Hysterectomy Respiratory: Yes Asthma Currently Using CPAP: No Currently Using BIPAP: No Cardiac: No Neurological: Yes Headaches /Migraines 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 0.0oz. [id number]; 51.59 BMI Method:Stated General Appearance: WD/WN, Moderate Distress, Obese Eyes: Bilateral Eye Normal Inspection, Bilateral Eye PERRL, Bilateral Eye EOMI HEENT: PERRL/EOMI, TMs Normal Neck: Full Range of Motion, Normal Inspection Respiratory: Decreased Breath Sounds, Respiratory Distress, Wheezing Cardiovascular: Normal Peripheral Pulses, Irregularly Irregular, Tachycardia Gastrointestinal: Normal Bowel Sounds, Non Tender, Soft Extremity: Normal Capillary Refill, Normal Inspection Neurologic/Psychiatric: Alert, Oriented x3 Skin: Normal Color, Warm/Dry Focused Exam Lactate Level 10/21/20 12:05: Lactic Acid Level 2.87*H 10/21/20 15:25: Lactic Acid Level 1.32 Lactic Acid Level Progress/Results/Core Measures Suspected Sepsis SIRS Temperature: Pulse: 158 Respiratory Rate: 36 Laboratory Tests 10/21/20 12:00: White Blood Count 7.3 Blood Pressure 125 /83 Mean: 10/21/20 12:05: Lactic Acid Level 2.87*H 10/21/20 15:25: Lactic Acid Level 1.32 Laboratory Tests 10/21/20 12:00: Creatinine 0.83, Platelet Count 290, Total Bilirubin 0.5 10/21/20 12:05: INR Comment 1.0 Results/Orders Lab Results Laboratory Tests Test 10/21/20 08:26 10/21/20 12:00 10/21/20 12:05 10/21/20 12:06 Range/Units B-Type Natriuretic Peptide 85.5 <100.0 PG/ML White Blood Count 7.3 4.3-11.0 10^3/uL Red Blood Count 4.11 3.80-5.11 10^6/uL Hemoglobin 13.0 11.5-16.0 g/dL Hematocrit 42 35-52 % Mean Corpuscular Volume 103 H 80-99 fL Mean Corpuscular Hemoglobin 32 25-34 pg Mean Corpuscular Hemoglobin Concent 31 L 32-36 g/dL Red Cell Distribution Width 14.3 10.0-14.5 % Platelet Count 290 130-400 10^3/uL Mean Platelet Volume 10.1 9.0-12.2 fL Immature Granulocyte % (Auto) 0 % Neutrophils (%) (Auto) 83 H 42-75 % Lymphocytes (%) (Auto) 12 12-44 % Monocytes (%) (Auto) 5 0-12 % Eosinophils (%) (Auto) 0 0-10 % Basophils (%) (Auto) 0 0-10 % Neutrophils # (Auto) 6.0 1.8-7.8 10^3/uL Lymphocytes # (Auto) 0.9 L 1.0-4.0 10^3/uL Monocytes # (Auto) 0.3 0.0-1.0 10^3/uL Eosinophils # (Auto) 0.0 0.0-0.3 10^3/uL Basophils # (Auto) 0.0 0.0-0.1 10^3/uL Immature Granulocyte # (Auto) 0.0 0.0-0.1 10^3/uL Sodium Level 142 135-145 MMOL/L Potassium Level 4.4 3.6-5.0 MMOL/L Chloride Level 106 98-107 MMOL/L Carbon Dioxide Level 23 21-32 MMOL/L Anion Gap 13 5-14 MMOL/L Blood Urea Nitrogen 12 7-18 MG/DL Creatinine 0.83 0.60-1.30 MG/DL Estimat Glomerular Filtration Rate > 60 BUN/Creatinine Ratio 14 Glucose Level 171 H 70-105 MG/DL Calcium Level 8.1 L 8.5-10.1 MG/DL Corrected Calcium 7.9 L 8.5-10.1 MG/DL Magnesium Level 2.0 1.6-2.4 MG/DL Total Bilirubin 0.5 0.1-1.0 MG/DL Aspartate Amino Transf (AST/SGOT) 44 H 5-34 U/L Alanine Aminotransferase (ALT/SGPT) 58 H 0-55 U/L Alkaline Phosphatase 58 40-136 U/L Myoglobin 46.0 10.0-92.0 NG/ML Troponin I < 0.028 <0.028 NG/ML Total Protein 7.1 6.4-8.2 GM/DL Albumin 4.3 3.2-4.5 GM/DL Procalcitonin 0.05 <0.10 NG/ML Prothrombin Time 13.5 12.2-14.7 SEC INR Comment 1.0 0.8-1.4 Activated Partial Thromboplast Time 27 24-35 SEC Lactic Acid Level 2.87 *H 0.50-2.00 MMOL/L Coronavirus 2019 (BENEDICTO) Positive H Negative Test 10/21/20 12:15 10/21/20 12:18 10/21/20 15:25 10/21/20 20:58 Range/Units Blood Gas Puncture Site RIGHT RADIAL LEFT RADIAL Blood Gas Patient Temperature 101.2 37.5 Arterial Blood pH 7.19 *L 7.29 *L 7.37-7.43 Arterial Blood Partial Pressure CO2 64 H 51 H 35-45 MMHG Arterial Blood Partial Pressure O2 190 H 87 79-93 MMHG Arterial Blood HCO3 23 24 23-27 MMOL/L Arterial Blood Total CO2 25.0 25.7 21.0-31.0 MMOL/L Arterial Blood Oxygen Saturation 99 97 94-100 % Arterial Blood Base Excess -3.6 L -1.8 -2.5-2.5 MMOL/L Hilario Test POSITIVE POSITIVE Blood Gas Ventilator Setting NO NO Blood Gas Inspired Oxygen 100% BIPAP 85% BIPAP Urine Color YELLOW Urine Clarity SL CLOUDY Urine pH 6.0 5-9 Urine Specific Trinity >=1.030 1.016-1.022 Urine Protein 3+ H NEGATIVE Urine Glucose (UA) NEGATIVE NEGATIVE Urine Ketones NEGATIVE NEGATIVE Urine Nitrite NEGATIVE NEGATIVE Urine Bilirubin 1+ H NEGATIVE Urine Urobilinogen 1.0 < = 1.0 MG/DL Urine Leukocyte Esterase NEGATIVE NEGATIVE Urine RBC (Auto) 1+ H NEGATIVE Urine RBC RARE /HPF Urine WBC 0-2 /HPF Urine Squamous Epithelial Cells NONE /HPF Urine Crystals NONE /LPF Urine Bacteria TRACE /HPF Urine Casts PRESENT /LPF Urine Coarse Granular Casts RARE H /LPF Urine Mucus NEGATIVE /LPF Urine Culture Indicated NO Lactic Acid Level 1.32 0.50-2.00 MMOL/L Test 10/21/20 21:23 Range/Units Micro Results Microbiology 10/21/20 Influenza Types A,B Antigen (CHETNA) - Final, Complete My Orders Orders - CHEYENNE PATTERSON APRN Ns Iv 1000 Ml (Sodium Chloride 0.9%) (10/21/20 12:15) Ns Iv 1000 Ml (Sodium Chloride 0.9%) (10/21/20 12:13) Metoprolol Tartrate Injection (Lopressor (10/21/20 12:27) Enoxaparin Injection (Lovenox Injection) (10/21/20 12:45) Enoxaparin Injection (Lovenox Injection) (10/21/20 12:45) Enoxaparin Injection (Lovenox Injection) (10/21/20 12:34) Enoxaparin Injection (Lovenox Injection) (10/21/20 12:34) Procalcitonin (Pct) (10/21/20 13:18) Hydrocodone/Apap 7.5/325 Tab (Lortab 7. (10/21/20 15:00) Digoxin Injection (Lanoxin Injection) (10/21/20 15:15) Medications Given in ED Current Medications Medications Dose Ordered Sig/Laura Route Start Time Stop Time Status Last Admin Dose Admin Aspirin 81 mg STK-MED ONCE .ROUTE 10/21/20 11:53 10/21/20 11:56 DC 10/21/20 12:05 81 MG Diltiazem HCl 10 mg ONCE ONCE IVP 10/21/20 12:00 10/21/20 12:02 DC 10/21/20 12:08 10 MG Enoxaparin Sodium 40 mg ONCE ONCE SC 10/21/20 12:45 10/21/20 12:46 DC 10/21/20 12:38 40 MG Enoxaparin Sodium 100 mg ONCE ONCE SC 10/21/20 12:45 10/21/20 12:46 DC 10/21/20 12:40 100 MG Methylprednisolone Sodium Succinate 125 mg ONCE ONCE IVP 10/21/20 12:00 10/21/20 12:02 DC 10/21/20 12:37 125 MG Metoprolol Tartrate 5 mg STK-MED ONCE .ROUTE 10/21/20 12:27 10/21/20 12:29 DC 10/21/20 12:30 5 MG Vital Signs/I&O 10/21/20 10/21/20 10/21/20 12:00 12:00 12:12 Temp 38.6 Pulse 179 158 Resp 30 36 B/P (MAP) 135/83 (100) Pulse Ox 97 97 98 O2 Delivery NIV Bilevel NIV CPAP O2 Flow Rate 85.00 FiO2 100 Capillary Refill : Diagnostic Imaging Diagonstic Imaging: Xray Plain Films/CT/US/NM/MRI: chest Comments NAME: KATERIN MABRY [facility] REC#: [id number] PT STATUS: REG ER : 1975 PHYSICIAN: CHRISTOFER STROUD MD ADMIT DATE: 10/21/20/ER Signed Date of Exam:10/21/20 CHEST 1 VIEW, AP/PA ONLY HISTORY: Respiratory distress and chest pain COMPARISON: 02/04/2016 TECHNIQUE: Frontal view the chest FINDINGS: There are patchy airspace opacities in the lungs bilaterally. No pleural effusion or pneumothorax is seen. The lung volumes are normal. The cardiac silhouette is normal. IMPRESSION: 1. Bilateral patchy airspace opacities, consistent with pneumonia. Dictated by: Dictated on workstation # [id number] Dict: 10/21/20 1251 Trans: 10/21/20 1258 [facility] [id number] Interpreted by: GABE VILLEDA MD Electronically signed by: GABE VILLEDA MD 10/21/20 1258 Departure Communication (Admissions) 1217-Upon arrival here she has a narrow complex irregular heart rate of 180s, blood pressure of 160s systolic. We immediately transitioned her to BiPAP 15/8 100% FiO2 with resultant SPO2 of 100% and improvement in respiratory effort. She was given an inline albuterol MDI. She was given 10 mg of Cardizem bolus and 10 mg of Cardizem per hour as a drip. She was swabbed for Covid and influenza. 1308-Bipap 85% FiO2, 18/8. Hr 120s afib BP 110/58. 94% SpO2. Doing better. Rapid covid positive. Cardizem drip at 15mg/hr and has had a 10mg bolus+5mg bolus+5mg IV lopressor. 1342-[facility] has no beds. [facility] has no beds. [facility] in [place] have no ICU beds. 2127-Still in room 8. updated on plan. Still on cardizem drip at 20mg hr with HR 135 BP 97/72. Alert, arousable to verbal stimuli. Smiles at us, no respiratory distress.RR 21. Going to CT now for angio chest ordered by EICU. Impression Primary Impression: COVID-19 Additional Impressions: Atrial fibrillation with RVR Respiratory distress Disposition: ADMITTED INPATIENT Condition: Stable Admissions Decision to Admit Reason: Admit from ER (General) Decision to Admit/Date: Oct 21, 2020 Time/Decision to Admit Time: 13:08 Departure-Patient Inst. Referrals: [facility] (PCP/Family) Primary Care Physician CHEYENNE PATTERSON APRN Oct 21, 2020 12:19
[2020-10-21 12:21] LABS: ABG PH 7.19 (7.37-7.43); ALLENS TEST POSITIVE; INSPIRED O2 100% BIPAP; PATIENT TEMP 101.2; VENTILATOR NO
[2020-10-21] MEDS ORDERED: meTOprolol 5 MG/5 ML (LOPRESSOR) VIAL ONE (12:27)
[2020-10-21 12:30] LABS: ALBUMIN 4.3 GM/DL (3.2-4.5); CHLORIDE 106 MMOL/L (98-107); POTASSIUM 4.4 MMOL/L (3.6-5.0); SODIUM 142 MMOL/L (135-145)
[2020-10-21 12:31] LABS: CALCIUM 8.1 MG/DL (8.5-10.1)
[2020-10-21 12:32] LABS: PROTHROMBIN TIME PATIENT 13.5 SEC (12.2-14.7)
[2020-10-21 12:32] LABS: GLUCOSE 171 MG/DL (70-105); TOTAL PROTEIN 7.1 GM/DL (6.4-8.2)
[2020-10-21 12:34] LABS: BILIRUBIN,TOTAL 0.5 MG/DL (0.1-1.0); CARBON DIOXIDE 23 MMOL/L (21-32)
[2020-10-21] MEDS ORDERED: ENOXAPARIN 40 MG/0.4 ML (LOVENOX) SYR ONE (12:34)
[2020-10-21] MEDS ORDERED: ENOXAPARIN 100 MG/1 ML (LOVENOX) SYR ONE (12:34)
[2020-10-21 12:36] LABS: ALKALINE PHOSPHATASE 58 U/L (40-136); CREATININE SERUM 0.83 MG/DL (0.60-1.30); GFR ESTIMATED > 60
[2020-10-21 12:37] LABS: BILIRUBIN,URINE 1+ (NEGATIVE); CLARITY,URINE SL CLOUDY; COLOR,URINE YELLOW; GLUCOSE, URINE (UA) NEGATIVE (NEGATIVE); KETONES,URINE NEGATIVE (NEGATIVE); LEUKOCYTE ESTERASE ,URINE NEGATIVE (NEGATIVE); NITRITE,URINE NEGATIVE (NEGATIVE); PROTEIN,URINE 3+ (NEGATIVE)
[2020-10-21 12:37] LABS: BUN/CREATININE RATIO 14
[2020-10-21 12:39] LABS: ALANINE AMINOTRANSFERASE 58 U/L (0-55)
[2020-10-21] MEDS ORDERED: ENOXAPARIN 100 MG/1 ML (LOVENOX) SYR SC ONE (12:45)
[2020-10-21] MEDS ORDERED: ENOXAPARIN 40 MG/0.4 ML (LOVENOX) SYR SC ONE (12:45)
[2020-10-21 12:47] LABS: BACTERIA,URINE TRACE /HPF; RBC,URINE RARE /HPF; WBC,URINE 0-2 /HPF
--- NOTE | 2020-10-21 12:54 | Diagnostic Imaging Report ---
HISTORY: Respiratory distress and chest pain COMPARISON: 02/04/2016 TECHNIQUE: Frontal view the chest FINDINGS: There are patchy airspace opacities in the lungs bilaterally. No pleural effusion or pneumothorax is seen. The lung volumes are normal. The cardiac silhouette is normal. IMPRESSION: 1. Bilateral patchy airspace opacities, consistent with pneumonia. Dictated by: Dictated on workstation # [id number]
--- NOTE | 2020-10-21 14:38 | NUR ---
SPOKE WITH PATIENTS , GERI TO LET HIM KNOW SHE IS SETTLED AT THE TIME AND WE ARE WAITING ON AN ICU BED HERE FOR HER.
[2020-10-21] MEDS ORDERED: HYDROcodone/APAP 7.5 MG/325 MG (LORTAB, LORCET PLUS) TABLET PO ONE (15:00)
[2020-10-21] MEDS ORDERED: DIGOXIN 0.25 MG/ML (LANOXIN) 2 ML AMP IV ONE (15:15)
--- NOTE | 2020-10-21 15:22 | NUR ---
CHANGED PTS CARDIZEM DRIP TO 15MG/HR @ 1300 CHANGED PTS CARDIZEM DRIP TO 20MG/HR @ 1515
[2020-10-21] MEDS ORDERED: REMDESIVIR INJ 100 MG in NS (IVPB) 230 ML IV SCH (20:45)
[2020-10-21] MEDS ORDERED: REMDESIVIR INJ 200 MG in NS (IVPB) 210 ML IV ONE (20:45)
--- NOTE | 2020-10-21 20:45 | NUR ---
TELE ICU DOC CALLED AND GAVE ME ORDERS FOR ANOTHER BLOOD GAS, REMDISIVR AND A D-DIMER
[2020-10-21 21:19] LABS: ABG BASE EXCESS -1.8 MMOL/L (-2.5-2.5); ABG OXYGEN SATURATION 97 % (94-100); ABG PCO2 51 MMHG (35-45); ABG PO2 87 MMHG (79-93); ABG TCO2 25.7 MMOL/L (21.0-31.0); ALLENS TEST POSITIVE; INSPIRED O2 85% BIPAP; VENTILATOR NO
[2020-10-21 21:20] LABS: ABG PH 7.29 (7.37-7.43); PATIENT TEMP 37.5
[2020-10-21] MEDS ORDERED: LACTATED RINGERS 1,000 ML IV ONE (22:11)
[2020-10-21 22:12] VITALS: BP 133/116
[2020-10-21] MEDS ORDERED: LACTATED RINGERS 1,000 ML IV SCH (22:30)
[2020-10-21] MEDS ORDERED: ACETAMINOPHEN 325 MG TABLET PO PRN (22:30)
--- NOTE | 2020-10-21 22:32 | NUR ---
UNABLE TO OBTAIN VITAL SIGNS FROM ER DUE TO TAKING PATIENT STRAIGHT TO ICU[address] CT SCAN. PT WAS A,OX4 AND STABLE ON ARRIVAL TO ICU
[2020-10-21 23:11] VITALS: BP 96/49
[2020-10-21] MEDS: NS IV 1000 ML 1,000 ML IV SCH (23:24)
[2020-10-22] VITALS (7 sets, daily range): BP systolic 105–148; BP diastolic 72–96
[2020-10-22] MEDS ORDERED: HOLD METFORMIN - RECEIVED CONTRAST 20 ML VIAL IV SCH (00:45)
[2020-10-22] MEDS ORDERED: NS 100 ML (IVPB) BAG IV ONE (00:45)
[2020-10-22] MEDS ORDERED: IOHEXOL 350 MG/ML 100 ML (OMNIPAQUE 350) VIAL IV ONE (00:45)
[2020-10-22] MEDS: RT-ALBUTEROL INHALER HFA (VENTOLIN HFA) 18 GM IH SCH ×11 (02:20→22:19)
[2020-10-22 03:10] LABS: BASOPHILS % (AUTO) 0 % (0-10); EOSINOPHILS % (AUTO) 0 % (0-10); HEMATOCRIT 39 % (35-52); HEMOGLOBIN 12.1 g/dL (11.5-16.0); LYMPHOCYTES # (AUTO) 0.4 10^3/uL (1.0-4.0); LYMPHOCYTES % (AUTO) 7 % (12-44); MEAN CORPUSCULAR HEMOGLOBIN 31 pg (25-34); MEAN CORPUSCULAR HGB CONC 31 g/dL (32-36); MEAN CORPUSCULAR VOLUME 100 fL (80-99); MEAN PLATELET VOLUME 10.6 fL (9.0-12.2); MONOCYTES # (AUTO) 0.2 10^3/uL (0.0-1.0); MONOCYTES % (AUTO) 3 % (0-12); NEUTROPHILS # (AUTO) 5.3 10^3/uL (1.8-7.8); NEUTROPHILS % (AUTO) 90 % (42-75); WHITE BLOOD COUNT 5.9 10^3/uL (4.3-11.0)
[2020-10-22 03:19] LABS: CHLORIDE 108 MMOL/L (98-107); POTASSIUM 4.2 MMOL/L (3.6-5.0); SODIUM 143 MMOL/L (135-145)
[2020-10-22 03:20] LABS: CALCIUM 8.1 MG/DL (8.5-10.1)
[2020-10-22 03:21] LABS: GLUCOSE 130 MG/DL (70-105); TRIGLYCERIDES 75 MG/DL (<150); VLDL CHOLESTEROL 15 MG/DL (5-40)
[2020-10-22 03:23] LABS: CARBON DIOXIDE 23 MMOL/L (21-32)
[2020-10-22 03:25] LABS: CREATININE SERUM 0.64 MG/DL (0.60-1.30); GFR ESTIMATED > 60; PHOSPHORUS 2.4 MG/DL (2.3-4.7)
[2020-10-22 03:26] LABS: BUN/CREATININE RATIO 14; CHOLESTEROL 139 MG/DL (< 200)
[2020-10-22 03:27] LABS: HDL CHOLESTEROL 34 MG/DL (40-60)
[2020-10-22 03:28] LABS: MAGNESIUM 2.1 MG/DL (1.6-2.4)
[2020-10-22 04:05] LABS: ABG BASE EXCESS -0.7 MMOL/L (-2.5-2.5); ABG OXYGEN SATURATION 94 % (94-100); ABG PCO2 51 MMHG (35-45); ABG PO2 74 MMHG (79-93); ABG TCO2 26.4 MMOL/L (21.0-31.0); ALLENS TEST POSITIVE; INSPIRED O2 85% BIPAP; PATIENT TEMP 36.8; VENTILATOR NO
[2020-10-22 04:06] LABS: ABG PH 7.31 (7.37-7.43)
[2020-10-22] MEDS ORDERED: HYDROcodone/APAP 7.5 MG/325 MG (LORTAB, LORCET PLUS) TABLET PO PRN (04:15)
[2020-10-22] MEDS ORDERED: HYDROcodone/APAP 7.5 MG/325 MG (LORTAB, LORCET PLUS) TABLET PO ONE (04:15)
[2020-10-22 04:18] LABS: ANISOCYTOSIS SLIGHT; LYMPHOCYTES % (MANUAL) 10 %; MONOCYTES % (MANUAL) 4 %; NEUTROPHILS % (MANUAL) 86 %; POLYCHROMASIA SLIGHT
[2020-10-22 04:19] LABS: PLATELET COUNT 256 10^3/uL (130-400)
[2020-10-22] MEDS ORDERED: HYDROmorphone 2 MG/ML VIAL (DILAUDID) ONE (04:57)
[2020-10-22] MEDS ORDERED: ONDANSETRON 4 MG/2 ML (SDV) Z0FRAN ONE (04:57)
[2020-10-22] MEDS: HYDROmorphone 2 MG/ML VIAL (DILAUDID) IV PRN (05:02)
[2020-10-22] MEDS: ONDANSETRON 4 MG/2 ML (SDV) Z0FRAN IVP PRN ×2 (05:02→07:43)
[2020-10-22] MEDS: inSUlin ASPART (NovoLOG) 1 UNIT/0.01 ML (CHARGE PER UNIT) SC SCH ×4 (05:08→23:29)
--- NOTE | 2020-10-22 06:28 | Diagnostic Imaging Report ---
PROCEDURE: CT angiography of the chest with contrast. TECHNIQUE: Multiple contiguous axial images were obtained through the chest after uneventful bolus administration of intravenous contrast. 3D reconstructed CTA MIP acquisitions were also performed. Auto Exposure Controls were utilized during the CT exam to meet ALARA standards for radiation dose reduction. INDICATION: COVID-19. A. fib. RVR. COMPARISON: Chest radiograph 10/21/2020. FINDINGS: Examination limited by both motion and contrast timing. No large or central pulmonary emboli. Normal caliber thoracic aorta. Normal heart size. No pericardial effusion. No mediastinal, hilar or axillary lymphadenopathy. Extensive dense groundglass opacities throughout both lungs. No pneumothorax. No definite pleural effusion. Cholecystectomy. No acute osseous findings. IMPRESSION: 1. No large or central pulmonary emboli. 2. Extensive dense groundglass opacities throughout both lungs compatible with reported COVID diagnosis. Dictated by: Dictated on workstation # [id number]
--- NOTE | 2020-10-22 07:04 | History & Physical-Hospitalist ---
History of Present Illness HPI/Chief Complaint CC: Respiratory failure due to COVID-19 PNA HPI: This is a 45 yoWF clinic patient of [facility] who presents to the ER with dyspnea and hypoxia and rapid heart rate. AF w/RVR dx and COVID swab was positive. Patient was placed in the ICU for Cardiology management with rate management drips and required hi-martina O2 then Vapotherm and then biPAP. She is tachypneic and pursed lip breathing and is struggling to breath and I talk to her about the ventilator and she is agreeable for the plan for intubation and supportive care. Source: patient, RN/MD Exam Limitations: clinical condition Date Seen 10/22/20 Time Seen by a Provider: 11:00 Attending Physician Lanie Keenan DO [facility] Referring Physician Date of Admission Oct 21, 2020 at 14:08 Home Medications & Allergies Home Medications Reviewed patient Home Medication Reconciliation performed by pharmacy medication reconciliations hearing aide technician and/or nursing. Patients Allergies have been reviewed. Allergies Allergies Coded Allergies Penicillins (Unverified Allergy, Unknown, Anaphylaxis, 05/26/20) Sulfa (Sulfonamide Antibiotics) (Unverified Allergy, Unknown, 02/04/16) amoxicillin (Verified Allergy, Unknown, Hives, 05/26/20) codeine (Unverified Allergy, Unknown, Pt has rec Hydrocodone/Ibu in the past, 06/02/20) meloxicam (Unverified Allergy, Unknown, 02/04/16) morphine (Unverified Allergy, Unknown, 02/04/16) Uncoded Allergies PAPER TAPE ( Allergy, Unknown, 02/04/16) PINK DYE ( Allergy, Unknown, 02/04/16) PURPLE DYE ( Allergy, Unknown, 02/04/16) Past Lhctjtq-Gxsslf-Cesiyp Hx Past Med/Social Hx: Reviewed Nursing Past Med/Soc Hx, Reviewed and Corrections made Patient Social History Alcohol Use: Denies Use Recreational Drug Use: No Smoking Status: Unknown if Ever Smoked Former Smoker, Quit: March 26, 2005 Type Used: Cigarettes 2nd Hand Smoke Exposure: No Recent Foreign Travel: No Contact w/other who traveled: No Recent Hopitalizations: No Recent Infectious Disease Expo: Yes Immunizations Up To Date Tetanus Booster (TDap): Unknown Date of Pneumonia Vaccine: Sep 11, 2017 Date of Influenza Vaccine: Aug 26, 2017 Seasonal Allergies Seasonal Allergies: No Past Medical History Surgeries: Abdominal, Ear Surgery, Gallbladder, Hysterectomy Currently Using CPAP: No Currently Using BIPAP: No Neurological: Headaches /Migraines Reproductive: No Sexually Transmitted Disease: No Hysterectomy Genitourinary: UTI-Chronic Musculoskeletal: Degenerate Disk Disease, Arthritis, Chronic Back Pain Endocrine: Diabetes, Insulin dep Psychosocial: Bipolar History of Blood Disorders: Yes (anemia) Review of Systems Constitutional: see HPI Respiratory: dyspnea on exertion, short of breath Physical Exam Physical Exam Vital Signs Vital Signs - First Documented 10/21/20 10/21/20 12:00 12:12 Temp 38.6 Pulse 179 Resp 30 B/P (MAP) 135/83 (100) Pulse Ox 97 O2 Delivery NIV Bilevel O2 Flow Rate 85.00 FiO2 100 Capillary Refill : Less Than 3 Seconds Height, Weight, BMI Height: 5'4.00" Weight: 281lbs. 0.0oz. 127.790476ji; 74.00 BMI Method:Stated General Appearance: Anxious, Chronically ill, Moderate Distress, Obese Respiratory: No Accessory Muscle Use, No Respiratory Distress, Decreased Breath Sounds Cardiovascular: Regular Rate, Rhythm Neurologic/Psychiatric: Alert, Oriented x3, Disoriented Results Results/Procedures Labs Laboratory Tests 10/21/20 12:00 10/22/20 02:37 Patient resulted labs reviewed. Assessment/Plan Admission Diagnosis Assessment: Respiratory failure requiring intubation due to failure on biPAP COVID-19 PNA AF w/RVR Hypoxia DM Obesity Plan: COVID-19 treatment Intubation Lovenox Monitor closely Cardiology consultation Admission Status: Inpatient Order (span 2 midnights) Reason for Inpatient Admission: COVID-19 PNA Diagnosis/Problems Diagnosis/Problems (1) COVID-19 Status: Acute (2) Atrial fibrillation with RVR Status: Acute (3) Respiratory distress Status: Acute Clinical Quality Measures DVT/VTE Risk/Contraindication: Risk Factor Score Per Nursin RFS Level Per Nursing on Admit: 4+=Very High LANIE KEENAN DO Oct 22, 2020 07:04
--- NOTE | 2020-10-22 07:25 | NUR ---
UPON START OF SHIFT, PATIENT IN APPARENT RESPIRATORY DISTRESS WITH USE OF ABDOMINAL MUSCLES. PT IS A/O AND SHRUGS HER SHOULDERS WHEN ASKED HOW HER BREATHING FEELS. PT REPOSITIONED IN BED BUT IS DIFFICULT TO SIT UP DUE TO BODY HABITUS. PT STATES SHE "ABSOLUTELY" CANNOT LAY ON HER ABDOMEN. AFTER REPOSITIONING, PT BECAME NAUSEATED AND WANTED MASK OFF TO VOMIT. ZOFRAN GIVEN. BIPAP TAKEN OFF AND PATIENT DESAT TO 78%. OXYMASK APPLIED WITH SATS OF 85% ON 15LITERS. AFTER PATIENT STATED NAUSEA WAS BETTER, BIPAP REPLACED WITH SATS 94% ON 95% FI02. CALLED E-ICU TO CAMERA IN AND VISUALIZE PATIENTS RESPIRATORY STATUS. ORDERS FROM E-ICU PROVIDER TO CHANGE BIPAP TO 20/8, NO REPEAT ABG. SPOKE WITH PATIENT REGARDING INTUBATION AND SHE CONSENTS IF NEEDED. PATIENT ALSO SPOKE TO ABOUT CENTRAL LINE OR PICC LINE, AND SHE CONSENTS TO BOTH. ORDER PLACED FOR PICC. I SPOKE WITH DIMITRI, PATIENTS SO, AND UPDATED ON CONDITION. WE SPOKE ABOUT INTUBATION AND HE ALSO AGREE'S TO THIS IF NEEDED. MONITORING HER CLOSELY.
[2020-10-22] MEDS ORDERED: ENOXAPARIN 300 MG/3 ML (LOVENOX) MULTI-DOSE VIAL SQ SCH (09:00)
[2020-10-22] MEDS: ASPIRIN 81 MG CHEW (CHILDREN'S ASA) PO SCH (09:41)
--- NOTE | 2020-10-22 10:00 | NUR ---
PLACED A CALL TO DIMITRI AND ALLOWED HIM TO SPEAK TO PATIENT OVER SPEAKER PHONE WHILE IN ROOM. ALLOWED FOR PRIVACY.
--- NOTE | 2020-10-22 10:34 | Consultation-Cardiology ---
HPI-Cardiology Cardiology Consultation Date of Consultation 10/22/20 Date of Admission Time Seen by Provider: 10:31 Indication: atrial fibrillation HPI 45-year-old lady admitted with increasing shortness of breath and cough, tested positive for Covid, on arrival to the hospital she was noted to be in respiratory failure and she was placed on Cipro. She was noted to be in atrial fibrillation with rapid ventricular response. On my evaluation she was laying down in bed, tired. Short of breath. Denied any chest pain. Does not report any previous cardiac history. Her heart rate is borderline tachycardic. Home Medications & Allergies Allergies: Coded Allergies: Penicillins (Unverified Allergy, Unknown, Anaphylaxis, 05/26/20) Sulfa (Sulfonamide Antibiotics) (Unverified Allergy, Unknown, 02/04/16) amoxicillin (Verified Allergy, Unknown, Hives, 05/26/20) codeine (Unverified Allergy, Unknown, Pt has rec Hydrocodone/Ibu in the past, 06/02/20) meloxicam (Unverified Allergy, Unknown, 02/04/16) morphine (Unverified Allergy, Unknown, 02/04/16) Uncoded Allergies: PAPER TAPE (Allergy, Unknown, 02/04/16) PINK DYE (Allergy, Unknown, 02/04/16) PURPLE DYE (Allergy, Unknown, 02/04/16) Home Medication List Reviewed: Yes [id number] Hx Patient Social History Marital Status: Alcohol Use: Denies Use Recreational Drug Use: No Type Used: Cigarettes 2nd Hand Smoke Exposure: No Recent Foreign Travel: No Recent Infectious Disease Expo: Yes Recent Hopitalizations: No Immunizations Up To Date Tetanus Booster (TDap): Unknown Date of Pneumonia Vaccine: Sep 11, 2017 Date of Influenza Vaccine: Aug 26, 2017 Past Medical History Discussed below Family Medical History Family Medical Hx Noncontributory Review of Systems-General Review of Systems Constitutional: see HPI, chills, fever, malaise EENTM: see HPI Respiratory: see HPI, cough, dyspnea on exertion; No hemoptysis, No orthopnea, No phlegm; short of breath; No stridor; wheezing; No other Cardiovascular: see HPI; No chest pain, No edema, No Hx of Intervention, No palpitations, No syncope, No vascular heart diseas, No other Gastrointestinal: see HPI Genitourinary: no symptoms reported, see HPI Musculoskeletal: no symptoms reported, see HPI Skin: no symptoms reported, see HPI Psychiatric/Neurological: No Symptoms Reported, See HPI Reviewed Test Results Reviewed Test Results Lab Laboratory Tests Test 10/21/20 12:00 10/21/20 12:05 10/21/20 12:06 10/21/20 12:15 Range/Units White Blood Count 7.3 4.3-11.0 10^3/uL Red Blood Count 4.11 3.80-5.11 10^6/uL Hemoglobin 13.0 11.5-16.0 g/dL Hematocrit 42 35-52 % Mean Corpuscular Volume 103 H 80-99 fL Mean Corpuscular Hemoglobin 32 25-34 pg Mean Corpuscular Hemoglobin Concent 31 L 32-36 g/dL Red Cell Distribution Width 14.3 10.0-14.5 % Platelet Count 290 130-400 10^3/uL Mean Platelet Volume 10.1 9.0-12.2 fL Immature Granulocyte % (Auto) 0 % Neutrophils (%) (Auto) 83 H 42-75 % Lymphocytes (%) (Auto) 12 12-44 % Monocytes (%) (Auto) 5 0-12 % Eosinophils (%) (Auto) 0 0-10 % Basophils (%) (Auto) 0 0-10 % Neutrophils # (Auto) 6.0 1.8-7.8 10^3/uL Lymphocytes # (Auto) 0.9 L 1.0-4.0 10^3/uL Monocytes # (Auto) 0.3 0.0-1.0 10^3/uL Eosinophils # (Auto) 0.0 0.0-0.3 10^3/uL Basophils # (Auto) 0.0 0.0-0.1 10^3/uL Immature Granulocyte # (Auto) 0.0 0.0-0.1 10^3/uL Sodium Level 142 135-145 MMOL/L Potassium Level 4.4 3.6-5.0 MMOL/L Chloride Level 106 98-107 MMOL/L Carbon Dioxide Level 23 21-32 MMOL/L Anion Gap 13 5-14 MMOL/L Blood Urea Nitrogen 12 7-18 MG/DL Creatinine 0.83 0.60-1.30 MG/DL Estimat Glomerular Filtration Rate > 60 BUN/Creatinine Ratio 14 Glucose Level 171 H 70-105 MG/DL Calcium Level 8.1 L 8.5-10.1 MG/DL Corrected Calcium 7.9 L 8.5-10.1 MG/DL Magnesium Level 2.0 1.6-2.4 MG/DL Total Bilirubin 0.5 0.1-1.0 MG/DL Aspartate Amino Transf (AST/SGOT) 44 H 5-34 U/L Alanine Aminotransferase (ALT/SGPT) 58 H 0-55 U/L Alkaline Phosphatase 58 40-136 U/L Myoglobin 46.0 10.0-92.0 NG/ML Troponin I < 0.028 <0.028 NG/ML Total Protein 7.1 6.4-8.2 GM/DL Albumin 4.3 3.2-4.5 GM/DL Procalcitonin 0.05 <0.10 NG/ML Prothrombin Time 13.5 12.2-14.7 SEC INR Comment 1.0 0.8-1.4 Activated Partial Thromboplast Time 27 24-35 SEC Lactic Acid Level 2.87 *H 0.50-2.00 MMOL/L Coronavirus 2019 (BENEDICTO) Positive H Negative Blood Gas Puncture Site RIGHT RADIAL Blood Gas Patient Temperature 101.2 Arterial Blood pH 7.19 *L 7.37-7.43 Arterial Blood Partial Pressure CO2 64 H 35-45 MMHG Arterial Blood Partial Pressure O2 190 H 79-93 MMHG Arterial Blood HCO3 23 23-27 MMOL/L Arterial Blood Total CO2 25.0 21.0-31.0 MMOL/L Arterial Blood Oxygen Saturation 99 94-100 % Arterial Blood Base Excess -3.6 L -2.5-2.5 MMOL/L Hilario Test POSITIVE Blood Gas Ventilator Setting NO Blood Gas Inspired Oxygen 100% BIPAP Test 10/21/20 12:18 10/21/20 15:25 10/21/20 20:58 10/21/20 21:23 Range/Units Urine Color YELLOW Urine Clarity SL CLOUDY Urine pH 6.0 5-9 Urine Specific [place] >=1.030 1.016-1.022 Urine Protein 3+ H NEGATIVE Urine Glucose (UA) NEGATIVE NEGATIVE Urine Ketones NEGATIVE NEGATIVE Urine Nitrite NEGATIVE NEGATIVE Urine Bilirubin 1+ H NEGATIVE Urine Urobilinogen 1.0 < = 1.0 MG/DL Urine Leukocyte Esterase NEGATIVE NEGATIVE Urine RBC (Auto) 1+ H NEGATIVE Urine RBC RARE /HPF Urine WBC 0-2 /HPF Urine Squamous Epithelial Cells NONE /HPF Urine Crystals NONE /LPF Urine Bacteria TRACE /HPF Urine Casts PRESENT /LPF Urine Coarse Granular Casts RARE H /LPF Urine Mucus NEGATIVE /LPF Urine Culture Indicated NO Lactic Acid Level 1.32 0.50-2.00 MMOL/L Blood Gas Puncture Site LEFT RADIAL Blood Gas Patient Temperature 37.5 Arterial Blood pH 7.29 *L 7.37-7.43 Arterial Blood Partial Pressure CO2 51 H 35-45 MMHG Arterial Blood Partial Pressure O2 87 79-93 MMHG Arterial Blood HCO3 24 23-27 MMOL/L Arterial Blood Total CO2 25.7 21.0-31.0 MMOL/L Arterial Blood Oxygen Saturation 97 94-100 % Arterial Blood Base Excess -1.8 -2.5-2.5 MMOL/L Hilario Test POSITIVE Blood Gas Ventilator Setting NO Blood Gas Inspired Oxygen 85% BIPAP D-Dimer 0.61 H 0.00-0.49 UG/ML Test 10/22/20 02:37 10/22/20 03:52 Range/Units White Blood Count 5.9 4.3-11.0 10^3/uL Red Blood Count 3.87 3.80-5.11 10^6/uL Hemoglobin 12.1 11.5-16.0 g/dL Hematocrit 39 35-52 % Mean Corpuscular Volume 100 H 80-99 fL Mean Corpuscular Hemoglobin 31 25-34 pg Mean Corpuscular Hemoglobin Concent 31 L 32-36 g/dL Red Cell Distribution Width 13.9 10.0-14.5 % Platelet Count 256 130-400 10^3/uL Mean Platelet Volume 10.6 9.0-12.2 fL Immature Granulocyte % (Auto) 1 % Neutrophils (%) (Auto) 90 H 42-75 % Lymphocytes (%) (Auto) 7 L 12-44 % Monocytes (%) (Auto) 3 0-12 % Eosinophils (%) (Auto) 0 0-10 % Basophils (%) (Auto) 0 0-10 % Neutrophils # (Auto) 5.3 1.8-7.8 10^3/uL Lymphocytes # (Auto) 0.4 L 1.0-4.0 10^3/uL Monocytes # (Auto) 0.2 0.0-1.0 10^3/uL Eosinophils # (Auto) 0.0 0.0-0.3 10^3/uL Basophils # (Auto) 0.0 0.0-0.1 10^3/uL Immature Granulocyte # (Auto) 0.0 0.0-0.1 10^3/uL Neutrophils % (Manual) 86 % Lymphocytes % (Manual) 10 % Monocytes % (Manual) 4 % Polychromasia SLIGHT Anisocytosis SLIGHT Sodium Level 143 135-145 MMOL/L Potassium Level 4.2 3.6-5.0 MMOL/L Chloride Level 108 H 98-107 MMOL/L Carbon Dioxide Level 23 21-32 MMOL/L Anion Gap 12 5-14 MMOL/L Blood Urea Nitrogen 9 7-18 MG/DL Creatinine 0.64 0.60-1.30 MG/DL Estimat Glomerular Filtration Rate > 60 BUN/Creatinine Ratio 14 Glucose Level 130 H 70-105 MG/DL Calcium Level 8.1 L 8.5-10.1 MG/DL Phosphorus Level 2.4 2.3-4.7 MG/DL Magnesium Level 2.1 1.6-2.4 MG/DL Triglycerides Level 75 <150 MG/DL Cholesterol Level 139 < 200 MG/DL LDL Cholesterol Direct 95 1-129 MG/DL VLDL Cholesterol 15 5-40 MG/DL HDL Cholesterol 34 L 40-60 MG/DL Blood Gas Puncture Site LEFT RADIAL Blood Gas Patient Temperature 36.8 Arterial Blood pH 7.31 *L 7.37-7.43 Arterial Blood Partial Pressure CO2 51 H 35-45 MMHG Arterial Blood Partial Pressure O2 74 L 79-93 MMHG Arterial Blood HCO3 25 23-27 MMOL/L Arterial Blood Total CO2 26.4 21.0-31.0 MMOL/L Arterial Blood Oxygen Saturation 94 94-100 % Arterial Blood Base Excess -0.7 -2.5-2.5 MMOL/L Hilario Test POSITIVE Blood Gas Ventilator Setting NO Blood Gas Inspired Oxygen 85% BIPAP Physical Exam Physical Exam Vital Signs Vital Signs - First Documented 10/21/20 10/21/20 12:00 12:12 Temp 38.6 Pulse 179 Resp 30 B/P (MAP) 135/83 (100) Pulse Ox 97 O2 Delivery NIV Bilevel O2 Flow Rate 85.00 FiO2 100 Capillary Refill : Less Than 3 Seconds Height, Weight, BMI Height: 5'4.00" Weight: 281lbs. 0.0oz. 127.178247kv; 74.00 BMI Method:Stated General Appearance: WD/WN, Moderate Distress, Obese Eyes: Bilateral Eye Normal Inspection, Bilateral Eye PERRL, Bilateral Eye EOMI HEENT: PERRL/EOMI, TMs Normal Neck: Full Range of Motion, Normal Inspection Respiratory: Crackles, Decreased Breath Sounds, Respiratory Distress, Wheezing Cardiovascular: Normal Peripheral Pulses, Irregularly Irregular, Tachycardia Gastrointestinal: Normal Bowel Sounds, Non Tender, Soft Back: Normal Inspection, No CVA Tenderness, No Vertebral Tenderness Extremity: Normal Capillary Refill, Normal Inspection Neurologic/Psychiatric: Alert, Oriented x3 Skin: Normal Color, Warm/Dry Lymphatic: No Adenopathy A/P-Cardiology Admission Diagnosis Acute respiratory failure COVID-19 pneumonia Atrial fibrillation Diabetes mellitus Assessment/Plan Acute respiratory failure, using C Pap, pneumonia secondary to COVID-19. Managed by primary care team Atrial fibrillation with rapid ventricular response, new onset. Still borderline tachycardic, continue to titrate Cardizem drip to achieve adequate heart rate control and add beta blockers. Once we reach adequate heart rate control we will try to switch her to oral Cardizem [id number] score of 4, yearly risk of stroke without oral anticoagulation is 4.2 percent. Patient was on enoxaparin. I will change it to Eliquis and continue to monitor Diabetes mellitus, followed and managed by primary care physician Bronchial asthma/COPD, has been followed and managed by primary care physician. Obesity. Questionable sleep apnea. Clinical Quality Measures DVT/VTE Risk/Contraindication: Risk Factor Score Per Nursin RFS Level Per Nursing on Admit: 4+=Very High SWAPNIL PLUMMER MD Oct 22, 2020 10:34
--- NOTE | 2020-10-22 10:55 | NUR ---
Note pt currently has no diet order placed, per chart review. Per Clarisa GONZALEZ, plan of care is to possibly intubate pt today. If pt is intubated, would recommend initiation of TF of Pulmocare at 15ml/hr with 25ml free water flushes q4h for hydration and to prevent the tube from clogging. Will continue to follow and reassess as pt needs, intake, and status change. Power Vieyra MS RD LD [phone] cell
--- NOTE | 2020-10-22 10:59 | NUR ---
PICC LINE BEING PLACED AT THIS TIME.
[2020-10-22] MEDS ORDERED: BUDE10.2 INH (11:46)
[2020-10-22] MEDS ORDERED: HYDR-87 PO (11:46)
[2020-10-22] MEDS ORDERED: PRD20T PO (11:46)
[2020-10-22] MEDS ORDERED: AZIT250T12 PO (11:46)
[2020-10-22] MEDS ORDERED: OXYB10TA29 PO (11:46)
[2020-10-22] MEDS ORDERED: ACET-2267 PO (11:49)
--- NOTE | 2020-10-22 11:50 | NUR ---
UNABLE TO SPEAK WITH PT, HOWEVER I WAS ABLE TO CONTACT HE SIGNIFICANT OTHER (GERI), AND WENT THRU THE EXT MED HISTORY TO COMPLETE THE MED REC GERI WAS ABLE TO NAME THE PTS MEDICATIONS WELL WHEN/HOW SHE TAKES EACH OTC MEDS: TYLENOL
--- NOTE | 2020-10-22 12:22 | Diagnostic Imaging Report ---
EXAMINATION: Chest 1 view HISTORY: Covid positive, line placement COMPARISON: 10/21/2020 FINDINGS: There is stable severe bilateral airspace opacities consistent with Covid 19 infection. Left upper extremity peripherally inserted central venous catheter tip terminates in the superior vena cava. Heart size is normal. No pleural effusion or pneumothorax. IMPRESSION: 1. Left upper extremity peripherally inserted central venous catheter tip terminates in the superior vena cava. 2. Stable severe bilateral airspace opacities consistent with Covid 19 infection. Dictated by: Dictated on workstation # [id number]
--- NOTE | 2020-10-22 12:23 | NUR ---
SPOKE WITH E-ICU DOC REGARDING CONTINUED RESPIRATORY DISTRESS AND ACCESSORY USE. VERBAL ORDER TO CHANGE BIPAP TO 24/8 AND THEN CALL BACK IF DOES NOT CHANGE RESPIRATORY STATUS FOR INTUBATION. RT NOTIFIED.
[2020-10-22] MEDS ORDERED: PROPOFOL DRIP (ICU) 100 ML IV ONE (13:42)
[2020-10-22] MEDS ORDERED: proPOfol 200 MG/20 ML (DIPRIVAN) VIAL IV ONE (13:45)
--- NOTE | 2020-10-22 13:53 | NUR ---
TIMELINE NOTE: 1353: E-ICU PROVIDER NOTIFIED THAT PATIENTS RR UPPER 50'S AND OXYGEN SATS 89% ON BIPAP. ORDER RECEIVED TO INTUBATE. PT AGREEABLE TO THIS AND NOTIFIED DARNELL MOSLEY. NS BOLUS AT THIS TIME PREPARING FOR BOLUS. HOUSE SUP NOTIFIED FOR ANESTHESIA TO INTUBATE. 1357: RN X 2 IN ROOM, RT X 2 IN ROOM, AND RICHELLE FROM ANESTHESIA IN ROOM TO INTUBATE. 100MCG PROPROFOL AND 100 SUCC PUSHED PER ANESTHESIA. 1359: PT INTUBATED AFTER FIRST ATTEMPT WITH SIZE 8.0 ETT WITH POSITIVE COLOR CHANGE. POSITION IS 23 AT THE LIPS. PROPOFOL GTT STARTED AT 20MCG/KG/MIN AT THIS TIME. ANESTHESIA PREPARING FOR ART LINE. 1404: PT BEGINNING TO MOVE, PROPOFOL 100MCG PUSHED PER ANESTHESIA. GTT INCREASED TO 30MCG/KG/MIN. 1406: PT WITH LABORED BREATHING OVER VENT AND NOT PULLING TIDAL VOLUMES. PT BAGGED PER RT. 50 OF MADDIE GIVEN BY ANESTHESIA . HR DROPPED DOWN TO 66, CARDIZEM PLACED ON HOLD. 1416-OGT PLACED AND RESTRAINTS ON AT THIS TIME. 1418-CARDIZEM RESUMED AT 5MG/HR. 1420- CARDIZEM INCREASED TO 10MG/HR. PT WITH OXYGEN SATS AT 83% WITH VENT SETTINGS OF RR 18 TV450 PEEP 14 FI02 100%. ALLOWING PATIENT TO SETTLE. 1425- SATS REMAIN 81-83%. EICU NOTIFIED WITH NEW VENT SETTINGS OF RR 18 TV450 PEEP 20 FI02 100%. ADVISED TO ALLOW ATLEAST 30 MINUTES BEFORE ANY MORE CHANGES. 1429- CARDIZEM INCREASED TO 15MG /HR. 1431- PRECEDEX STARTED AT 0.3. PT SATS IMPROVING BUT CONTINUES WITH LABORED BREATHING. SEE EMAR FOR FURTHER ORDERS.
[2020-10-22] MEDS ORDERED: DexMEDEtomidine PRE MIX 100 ML IV ONE (14:27)
[2020-10-22] MEDS ORDERED: DexMEDEtomidine PRE MIX 100 ML IV SCH (14:30)
--- NOTE | 2020-10-22 14:31 | Anesthesia-Procedure Note ---
Procedures/Interventions Procedure Start/Stop/Diagnosis Date of Procedure: Oct 22, 2020 Start Time: 13:50 Referring Physician: Ree Preprocedural Diagnosis: Covid Resp Failure Brief History Called by housekeeper caregiver for intubation of pt in Covid+ Resp failure. Pt was alert on bipap. Procedure explained to pt and understanding verbalized. Pre oxygenation with ambu 100%. Propofol 100mg and Anectine 100mg IVP. Easy mask ventilate but sats quickly dropped to 50's. VL with #3 glidescope, Grade1 vew. 8.0 ETT placed x1 attempt. +ETCO via EZCAP. Tube secured at 22/lip per RT w copious secretions suctioned from tube. While sedated #20g Arrow A-line placed Left radial under sterile technique. Good blood return and wave form on monitor. Catheter secure with sterile op site and tape. Left in care of RN with report. VSS Stop Time: 14:15 Postprocedural Diagnosis: Covid Resp Failure Intubation RSI: Yes 100% pre-Ox, [id number]: Yes Intubation Method: orotracheal Videoscope used: Yes Medications: Propofol, Succinylcholine Mask Ventilation: positive Positive End Tide CO2: Yes Breath Sounds after Intubation: bilateral-equal Intubated with ease: Yes Intubation Complications: no complications, O2 saturation decreased Post Intubation Xray-done: Yes Arterial Line Arterial Line Catheter: 20G Type: Radial Procedure: prepped, draped in sterile fashion, good wave-form was obtained, patient tolerated procedure well, no immediate complications, post procedure area cleaned, post procedure dressing applied RICHELLE SHELTON CRNA Oct 22, 2020 14:31
--- NOTE | 2020-10-22 15:26 | Diagnostic Imaging Report ---
EXAMINATION: Chest 1 view HISTORY: Tube placement COMPARISON: 10/22/2020 FINDINGS: Patient is rotated to the right. Endotracheal tube tip terminates 3 cm above the richadrson. Gastric tube tip terminates below the field of view. Left upper extremity peripherally inserted central venous catheter tip terminates in the superior vena cava. There is severe bilateral airspace opacities, similar to prior exam. No pneumothorax. Heart is likely normal in size. IMPRESSION: 1. Stable severe bilateral airspace opacities. 2. Endotracheal tube tip terminates 3 cm above the richardson. Dictated by: Dictated on workstation # [id number]
[2020-10-22] MEDS: NS IV 1000 ML 1,000 ML IV SCH (15:28)
[2020-10-22] MEDS ORDERED: ATRACURIUM INJECTION 250 MG in NS (IVPB) 225 ML IV SCH (15:30)
[2020-10-22] MEDS ORDERED: CISATRACURIUM 2MG/ML (NIMBEX) 10ML VIAL IV NR (15:45)
[2020-10-22 15:49] LABS: ABG OXYGEN SATURATION 90 % (94-100); ABG PCO2 50 MMHG (35-45); ABG PO2 61 MMHG (79-93)
[2020-10-22] MEDS: PROPOFOL DRIP (ICU) 100 ML IV SCH ×3 (15:49→21:39)
[2020-10-22 15:51] LABS: ALLENS TEST ART LINE; INSPIRED O2 100%; PATIENT TEMP 37.1; VENTILATOR YES
[2020-10-22] MEDS: CISATRACURIUM INJECTION 100 MG in NS (IVPB) 200 ML IV SCH ×3 (15:51→21:41)
[2020-10-22] MEDS: DexMEDEtomidine PRE MIX 100 ML IV SCH ×2 (15:51→21:39)
[2020-10-22] MEDS ORDERED: RT-ALBUTEROL INHALER HFA (VENTOLIN HFA) 18 GM IH PRN (17:30)
[2020-10-22] MEDS ORDERED: NS (IVPB) 250 ML ONE (17:51)
[2020-10-22] MEDS: ACETAMINOPHEN 650 MG SUPP (TYLENOL) PR PRN (18:29)
[2020-10-22] MEDS ORDERED: ROCURONIUM 50 MG/5 ML (ZEMURON) VIAL IV ONE (19:44)
[2020-10-22] MEDS ORDERED: SUCCINYLCHOLINE INJ 100 MG/5 ML SYR/VIAL INJ ONE (19:44)
[2020-10-22] MEDS: APIXABAN 5 MG (ELIQUIS) TABLET PO SCH (20:07)
[2020-10-22] MEDS: meTOprolol TARTRATE 25 MG (LOPRESSOR) TABLET PO SCH (20:07)
[2020-10-22] MEDS: dilTIAZem DRIP PRE-MIX 125 ML IV SCH (23:27)
[2020-10-23] MEDS: ACETAMINOPHEN 650 MG SUPP (TYLENOL) PR PRN (00:23)
[2020-10-23] MEDS: NS IV 1000 ML 1,000 ML IV SCH ×2 (00:59→15:30)
[2020-10-23] MEDS: PROPOFOL DRIP (ICU) 100 ML IV SCH ×5 (01:38→19:57)
[2020-10-23 02:01] VITALS: BP 99/71
[2020-10-23] MEDS: RT-ALBUTEROL INHALER HFA (VENTOLIN HFA) 18 GM IH SCH ×6 (02:01→22:28)
[2020-10-23 02:48] LABS: ABG BASE EXCESS -1.5 MMOL/L (-2.5-2.5); ABG OXYGEN SATURATION 98 % (94-100); ABG PCO2 46 MMHG (35-45); ABG PO2 106 MMHG (79-93); ABG TCO2 24.6 MMOL/L (21.0-31.0)
[2020-10-23 02:49] LABS: ABG PH 7.35 (7.37-7.43); ALLENS TEST ART LINE; INSPIRED O2 36%; VENTILATOR YES
[2020-10-23 02:50] LABS: BASOPHILS % (AUTO) 0 % (0-10); EOSINOPHILS % (AUTO) 0 % (0-10); HEMATOCRIT 35 % (35-52); HEMOGLOBIN 10.9 g/dL (11.5-16.0); LYMPHOCYTES # (AUTO) 0.4 10^3/uL (1.0-4.0); LYMPHOCYTES % (AUTO) 10 % (12-44); MEAN CORPUSCULAR HEMOGLOBIN 32 pg (25-34); MEAN CORPUSCULAR HGB CONC 32 g/dL (32-36); MEAN CORPUSCULAR VOLUME 100 fL (80-99); MEAN PLATELET VOLUME 9.6 fL (9.0-12.2); MONOCYTES # (AUTO) 0.1 10^3/uL (0.0-1.0); MONOCYTES % (AUTO) 3 % (0-12); NEUTROPHILS # (AUTO) 3.5 10^3/uL (1.8-7.8); NEUTROPHILS % (AUTO) 86 % (42-75); PATIENT TEMP 38.1; PLATELET COUNT 218 10^3/uL (130-400)
[2020-10-23 02:59] LABS: CHLORIDE 108 MMOL/L (98-107)
[2020-10-23 03:00] LABS: SODIUM 140 MMOL/L (135-145)
[2020-10-23 03:01] LABS: CALCIUM 7.7 MG/DL (8.5-10.1); GLUCOSE 156 MG/DL (70-105)
[2020-10-23 03:03] LABS: CARBON DIOXIDE 21 MMOL/L (21-32)
[2020-10-23 03:05] LABS: CREATININE SERUM 0.63 MG/DL (0.60-1.30); GFR ESTIMATED > 60; PHOSPHORUS 2.3 MG/DL (2.3-4.7)
[2020-10-23 03:06] LABS: BUN/CREATININE RATIO 27
[2020-10-23 03:07] LABS: MAGNESIUM 2.3 MG/DL (1.6-2.4)
[2020-10-23 04:21] LABS: SMEAR SCAN COMMENT YES
[2020-10-23] MEDS: CISATRACURIUM INJECTION 100 MG in NS (IVPB) 200 ML IV SCH ×5 (05:29→21:14)
[2020-10-23] MEDS: inSUlin ASPART (NovoLOG) 1 UNIT/0.01 ML (CHARGE PER UNIT) SC SCH ×4 (05:31→23:46)
[2020-10-23 07:02] VITALS: BP 92/57
[2020-10-23] MEDS: DexMEDEtomidine PRE MIX 100 ML IV SCH ×3 (07:16→19:28)
[2020-10-23] MEDS: REMDESIVIR INJ 100 MG in NS (IVPB) 230 ML IV SCH (08:06)
[2020-10-23] MEDS: ASPIRIN 81 MG CHEW (CHILDREN'S ASA) PO SCH (08:06)
[2020-10-23] MEDS: APIXABAN 5 MG (ELIQUIS) TABLET PO SCH ×2 (08:06→21:13)
[2020-10-23] MEDS: meTOprolol TARTRATE 25 MG (LOPRESSOR) TABLET PO SCH ×2 (08:06→21:13)
[2020-10-23] MEDS: PANTOPRAZOLE 40 MG (PROTONIX) VIAL IV SCH (08:10)
[2020-10-23 10:51] VITALS: BP 103/67
--- NOTE | 2020-10-23 11:48 | Cardiology Progress Note ---
Subjective Date Seen by Provider: Oct 23, 2020 Time Seen by Provider: 11:47 Subjective/Events-last exam Patient was intubated, currently ventilator dependent Review of Systems General: Other (unable to provide review of systems) Focused Exam Lactate Level 10/21/20 12:05: Lactic Acid Level 2.87*H 10/21/20 15:25: Lactic Acid Level 1.32 Objective-Cardiology Exam Last Set of Vital Signs Vital Signs 10/23/20 10/23/20 10/23/20 10/23/20 10:00 10:28 10:51 11:25 Temp 37.5 Pulse 113 Resp 18 B/P (MAP) 92/57 Pulse Ox 92 O2 Delivery Mechanical Ventilator O2 Flow Rate 65.00 FiO2 45 Capillary Refill : Less Than 3 Seconds I&O Intake and Output 10/23/20 00:00 Intake Total 300 ml Output Total 1975 ml Balance -1675 ml Intake Oral 50 ml IV Total 250 ml Output Urine Total 1975 ml General: Other (sedated and intubated) HEENT: Atraumatic Heart: Other (atrial fibrillation) Neuro: Other (sedated and intubated) Psych/Mental Status: Other (sedated and intubated) Results Lab Laboratory Tests 10/23/20 02:40 A/P-Cardiology Admission Diagnosis Acute respiratory failure COVID-19 pneumonia Atrial fibrillation Diabetes mellitus Assessment/Plan Acute respiratory failure, ventilator dependent, managed by primary care team COVID-19 pneumonia, respiratory failure, managed by [facility] care team Atrial fibrillation with rapid ventricular response, new onset. Continue on C ardizem drip and anticoagulation [id number] score of 4, yearly risk of stroke without oral anticoagulation is 4.2 percent. Continue on oral anticoagulation if patient can't tolerate the medication Diabetes mellitus, followed and managed by primary care physician Bronchial asthma/COPD, has been followed and managed by primary care physician. Obesity. Questionable sleep apnea. Clinical Quality Measures DVT/VTE Risk/Contraindication: Risk Factor Score Per Nursin RFS Level Per Nursing on Admit: 4+=Very High SWAPNIL PLUMMER MD Oct 23, 2020 11:48
[2020-10-23] MEDS: MICONAZOLE 2% POWDER (DESENEX AF) 90 GM TOP SCH ×2 (11:53→21:13)
--- NOTE | 2020-10-23 12:46 | Diagnostic Imaging Report ---
EXAMINATION: Chest 1 view HISTORY: Covid positive. COMPARISON: 10/22/2020 FINDINGS: Endotracheal tube tip terminates 6 cm above the richardson. Gastric tube tip terminates below the field of view. There has been improvement in the now mild bilateral airspace opacities. No pleural effusion or pneumothorax. Heart size is normal. IMPRESSION: 1. Improvement in the now mild bilateral airspace opacities. Dictated by: Dictated on workstation # [id number]
[2020-10-23] MEDS ORDERED: APAP 325 MG/10.15 ML LIQ (TYLENOL) UDC ONE (14:00)
--- NOTE | 2020-10-23 14:19 | Progress Note - Hospitalist ---
Subjective HPI/CC On Admission Date Seen by Provider: Oct 23, 2020 Time Seen by Provider: 13:00 CC: Respiratory failure due to COVID-19 PNA HPI: This is a 45 yoWF clinic patient of [facility] who presents to the ER with dyspnea and hypoxia and rapid heart rate. AF w/RVR dx and COVID swab was positive. Patient was placed in the ICU for Cardiology management with rate management drips and required hi-martina O2 then Vapotherm and then biPAP. She is tachypneic and pursed lip breathing and is struggling to breath and I talk to her about the ventilator and she is agreeable for the plan for intubation and supportive care. Subjective/Events-last exam Intubation maintained Monitor closely CXR reviewed No issues Focused Exam Lactate Level 10/21/20 12:05: Lactic Acid Level 2.87*H 10/21/20 15:25: Lactic Acid Level 1.32 Objective Exam Vital Signs Vital Signs Date Time Temp Pulse Resp B/P (MAP) Pulse Ox O2 Delivery O2 Flow Rate FiO2 10/23/20 16:00 38.3 120 97 Mechanical Ventilator 60.00 10/23/20 14:42 18 65 Capillary Refill : Less Than 3 Seconds General Appearance: No Apparent Distress, WD/WN, Chronically ill, Obese, Other (intubated) Respiratory: Chest Non Tender, Normal Breath Sounds, No Accessory Muscle Use, No Respiratory Distress, Decreased Breath Sounds Cardiovascular: Regular Rate, Rhythm, No Edema, No Gallop, No JVD, No Murmur, Normal Peripheral Pulses Results/Procedures Lab Laboratory Tests 10/23/20 02:40 Patient resulted labs reviewed. Assessment/Plan Assessment and Plan Assess & Plan/Chief Complaint Assessment: Respiratory failure requiring intubation due to failure on biPAP COVID-19 PNA AF w/RVR Hypoxia DM Obesity Plan: COVID-19 treatment Intubation Lovenox Monitor closely Cardiology consultation Diagnosis/Problems Diagnosis/Problems (1) COVID-19 Status: Acute (2) Atrial fibrillation with RVR Status: Acute (3) Respiratory distress Status: Acute Clinical Quality Measures DVT/VTE Risk/Contraindication: Risk Factor Score Per Nursin RFS Level Per Nursing on Admit: 4+=Very High LAMIN PALACIO DO Oct 23, 2020 14:19
[2020-10-23] MEDS: APAP 325 MG/10.15 ML LIQ (TYLENOL) UDC PO PRN ×2 (14:41→18:32)
[2020-10-23 14:42] VITALS: BP 117/80
[2020-10-23 19:59] VITALS: BP 117/83
[2020-10-23 22:28] VITALS: BP 93/66
[2020-10-24] MEDS: PROPOFOL DRIP (ICU) 100 ML IV SCH ×9 (00:10→22:27)
[2020-10-24] MEDS: DexMEDEtomidine PRE MIX 100 ML IV SCH ×9 (01:12→22:20)
[2020-10-24 01:17] VITALS: BP 124/73
[2020-10-24] MEDS: RT-ALBUTEROL INHALER HFA (VENTOLIN HFA) 18 GM IH SCH ×6 (01:17→23:11)
[2020-10-24] MEDS: APAP 325 MG/10.15 ML LIQ (TYLENOL) UDC PO PRN ×3 (02:22→10:26)
[2020-10-24] MEDS: CISATRACURIUM INJECTION 100 MG in NS (IVPB) 200 ML IV SCH ×6 (02:22→23:05)
[2020-10-24] MEDS: dilTIAZem DRIP PRE-MIX 125 ML IV SCH (02:39)
[2020-10-24 02:51] LABS: BASOPHILS % (AUTO) 0 % (0-10); EOSINOPHILS % (AUTO) 0 % (0-10); HEMATOCRIT 38 % (35-52); HEMOGLOBIN 11.7 g/dL (11.5-16.0); LYMPHOCYTES # (AUTO) 0.5 10^3/uL (1.0-4.0); LYMPHOCYTES % (AUTO) 9 % (12-44); MEAN CORPUSCULAR HEMOGLOBIN 31 pg (25-34); MEAN CORPUSCULAR HGB CONC 31 g/dL (32-36); MEAN CORPUSCULAR VOLUME 101 fL (80-99); MONOCYTES # (AUTO) 0.2 10^3/uL (0.0-1.0); MONOCYTES % (AUTO) 3 % (0-12); NEUTROPHILS # (AUTO) 4.8 10^3/uL (1.8-7.8); NEUTROPHILS % (AUTO) 88 % (42-75); PLATELET COUNT 233 10^3/uL (130-400); WHITE BLOOD COUNT 5.4 10^3/uL (4.3-11.0)
[2020-10-24 02:54] LABS: ABG BASE EXCESS -2.1 MMOL/L (-2.5-2.5); ABG OXYGEN SATURATION 96 % (94-100); ABG PCO2 55 MMHG (35-45); ABG PO2 106 MMHG (79-93); ABG TCO2 24.8 MMOL/L (21.0-31.0)
[2020-10-24 03:00] LABS: CHLORIDE 109 MMOL/L (98-107); SODIUM 141 MMOL/L (135-145)
[2020-10-24 03:01] LABS: CALCIUM 7.5 MG/DL (8.5-10.1)
[2020-10-24 03:02] LABS: GLUCOSE 164 MG/DL (70-105)
[2020-10-24 03:03] LABS: CARBON DIOXIDE 21 MMOL/L (21-32)
[2020-10-24 03:05] LABS: PHOSPHORUS 1.9 MG/DL (2.3-4.7)
[2020-10-24 03:06] LABS: BUN/CREATININE RATIO 20; CREATININE SERUM 0.56 MG/DL (0.60-1.30); GFR ESTIMATED > 60
[2020-10-24 03:08] LABS: ABG PH 7.27 (7.37-7.43); ALLENS TEST ART LINE; MAGNESIUM 2.3 MG/DL (1.6-2.4); PATIENT TEMP 39.9; VENTILATOR YES
[2020-10-24] MEDS ORDERED: PHENYLEPHRINE INJ 10 MG/ML (FOR DRIP KITS ONLY) ONE (04:29)
[2020-10-24] MEDS ORDERED: NS (IVPB) 250 ML ONE (04:29)
[2020-10-24] MEDS ORDERED: PHENYLEPHRINE INJECTION 10 MG in NS (IVPB) 250 ML IV SCH (04:45)
[2020-10-24] MEDS ORDERED: NS IV 1000 ML 1,000 ML IV SCH (04:45)
[2020-10-24] MEDS: NS IV 1000 ML 1,000 ML IV SCH (05:44)
[2020-10-24] MEDS: inSUlin ASPART (NovoLOG) 1 UNIT/0.01 ML (CHARGE PER UNIT) SC SCH ×3 (05:45→17:45)
[2020-10-24 06:47] VITALS: BP 96/64
--- NOTE | 2020-10-24 07:02 | Cardiology Progress Note ---
Subjective Date Seen by Provider: Oct 24, 2020 Time Seen by Provider: 07:00 Subjective/Events-last exam Patient is sedated and intubated, in pronating physician Review of Systems General: Other (unable to provide review of systems) Focused Exam Lactate Level 10/21/20 12:05: Lactic Acid Level 2.87*H 10/21/20 15:25: Lactic Acid Level 1.32 Objective-Cardiology Exam Last Set of Vital Signs Vital Signs 10/24/20 10/24/20 10/24/20 05:58 06:00 06:47 Temp 38.9 Pulse 122 Resp 24 B/P (MAP) 102/68 Pulse Ox 96 O2 Delivery Mechanical Ventilator O2 Flow Rate 55.00 FiO2 55 Capillary Refill : Less Than 3 Seconds I&O Intake and Output 10/24/20 00:00 Intake Total 1970 ml Output Total 1770 ml Balance 200 ml Intake Oral 0 ml IV Total 1550 ml Other 420 ml Output Urine Total 1770 ml General: Other (sedated and intubated) HEENT: Atraumatic Heart: Other (atrial fibrillation) Neuro: Other (sedated and intubated) Psych/Mental Status: Other (sedated and intubated) Results Lab Laboratory Tests 10/24/20 02:30 A/P-Cardiology Admission Diagnosis Acute respiratory failure COVID-19 pneumonia Atrial fibrillation Diabetes mellitus Assessment/Plan Acute respiratory failure, ventilator dependent, proning. managed by primary care team COVID-19 pneumonia, respiratory failure, managed by primary care team Hypotension, was unable to tolerate Cardizem drip, currently on Barak-Synephrine, borderline hypotensive, managed by bench worker hollow handle Atrial fibrillation with rapid ventricular response, tachycardic, unable to tolerate Cardizem due to hypotension [id number] score of 4, yearly risk of stroke without oral anticoagulation is 4.2 percent. Continue on oral anticoagulation if patient can tolerate the medication Diabetes mellitus, followed and managed by primary care physician Bronchial asthma/COPD, has been followed and managed by primary care physician. Obesity. Questionable sleep apnea. Clinical Quality Measures DVT/VTE Risk/Contraindication: Risk Factor Score Per Nursin RFS Level Per Nursing on Admit: 4+=Very High SWAPNIL PLUMMER MD Oct 24, 2020 07:02
--- NOTE | 2020-10-24 07:30 | Progress Note - Hospitalist ---
Subjective HPI/CC On Admission Date Seen by Provider: Oct 24, 2020 Time Seen by Provider: 11:30 CC: Respiratory failure due to COVID-19 PNA HPI: This is a 45 yoWF clinic patient of [facility] who presents to the ER with dyspnea and hypoxia and rapid heart rate. AF w/RVR dx and COVID swab was positive. Patient was placed in the ICU for Cardiology management with rate management drips and required hi-martina O2 then Vapotherm and then biPAP. She is tachypneic and pursed lip breathing and is struggling to breath and I talk to her about the ventilator and she is agreeable for the plan for intubation and supportive care. Subjective/Events-last exam EICU was unable to manage hypotension this morning at 0430 due to overwhelmed patient care responsibilities so I was called and I gave ordered for 1 liter of fluid NS and Neosynephrine with good results Intubation maintained Monitored closely Focused Exam Lactate Level Objective Exam Vital Signs Vital Signs Date Time Temp Pulse Resp B/P (MAP) Pulse Ox O2 Delivery O2 Flow Rate FiO2 10/24/20 16:25 133 100/63 10/24/20 16:24 38.2 22 98 Mechanical Ventilator 10/24/20 16:00 100.00 10/24/20 14:39 90 Capillary Refill : Less Than 3 Seconds General Appearance: No Apparent Distress, WD/WN, Chronically ill, Obese Respiratory: No Accessory Muscle Use, No Respiratory Distress, Decreased Breath Sounds Results/Procedures Lab Laboratory Tests 10/24/20 02:30 Patient resulted labs reviewed. Assessment/Plan Assessment and Plan Assess & Plan/Chief Complaint Assessment: Respiratory failure requiring intubation due to failure on biPAP COVID-19 PNA AF w/RVR Hypoxia DM Obesity Plan: COVID-19 treatment Intubation Lovenox Monitor closely Cardiology consultation 10/24/20: Intubation Sedation management Monitor BP Prone schedule Diagnosis/Problems Diagnosis/Problems (1) COVID-19 Status: Acute (2) Atrial fibrillation with RVR Status: Acute (3) Respiratory distress Status: Acute Clinical Quality Measures DVT/VTE Risk/Contraindication: Risk Factor Score Per Nursin RFS Level Per Nursing on Admit: 4+=Very High LAMIN PALACIO DO Oct 24, 2020 07:30
[2020-10-24] MEDS: APIXABAN 5 MG (ELIQUIS) TABLET PO SCH ×2 (08:07→20:00)
[2020-10-24] MEDS: PANTOPRAZOLE 40 MG (PROTONIX) VIAL IV SCH (08:07)
[2020-10-24] MEDS: meTOprolol TARTRATE 25 MG (LOPRESSOR) TABLET PO SCH ×2 (08:07→20:00)
[2020-10-24] MEDS: ASPIRIN 81 MG CHEW (CHILDREN'S ASA) PO SCH (08:07)
--- NOTE | 2020-10-24 08:10 | NUR ---
Pt turned from prone to supine. Fresh ice packs applied for elevated temp
[2020-10-24] MEDS: MICONAZOLE 2% POWDER (DESENEX AF) 90 GM TOP SCH ×2 (08:43→22:19)
--- NOTE | 2020-10-24 09:42 | Diagnostic Imaging Report ---
INDICATION: Pneumonia. COMPARISON: 10/15/2020 FINDINGS: There are bibasilar pulmonary infiltrates, left greater than right. There is a left pleural effusion. There is no pneumothorax. Mediastinum is unremarkable. IMPRESSION: Bibasilar pulmonary infiltrates, left greater than right, with a left pleural effusion. Some underlying central pulmonary venous congestion cannot be excluded Dictated by: Dictated on workstation # [id number]
[2020-10-24] MEDS: REMDESIVIR INJ 100 MG in NS (IVPB) 230 ML IV SCH (10:26)
[2020-10-24 10:51] VITALS: BP 98/50
--- NOTE | 2020-10-24 11:20 | NUR ---
Pt sats 82-83% despite PEEP 20 et FIO2 100%. In-line suctioning did not improve sats, no secretions at this time. E-ICU button pushed et doc camera'd in room. Order for ABG et to prone pt early at this time
[2020-10-24 11:32] LABS: ABG BASE EXCESS -4.9 MMOL/L (-2.5-2.5); ABG OXYGEN SATURATION 89 % (94-100); ABG PCO2 55 MMHG (35-45); ABG PO2 68 MMHG (79-93); ABG TCO2 23.6 MMOL/L (21.0-31.0)
[2020-10-24 11:33] LABS: ALLENS TEST ARTLINE; INSPIRED O2 100; VENTILATOR YES
[2020-10-24 11:34] LABS: PATIENT TEMP 38.3
[2020-10-24 11:35] LABS: ABG PH 7.22 (7.37-7.43)
--- NOTE | 2020-10-24 11:40 | NUR ---
Pt placed in prone. ABG results discussed with [facility] doc, no new orders at this time.
[2020-10-24 14:39] VITALS: BP 100/63
[2020-10-24] MEDS: ACETAMINOPHEN 650 MG SUPP (TYLENOL) PR PRN (16:25)
--- NOTE | 2020-10-24 18:40 | NUR ---
Fresh ice packs applied for rising rectal temp
[2020-10-24 19:13] VITALS: BP 93/57
[2020-10-24 23:12] VITALS: BP 98/64
[2020-10-25] MEDS: inSUlin ASPART (NovoLOG) 1 UNIT/0.01 ML (CHARGE PER UNIT) SC SCH ×4 (00:40→17:57)
[2020-10-25] MEDS: CISATRACURIUM INJECTION 100 MG in NS (IVPB) 200 ML IV SCH ×5 (01:15→22:42)
[2020-10-25] MEDS: NS IV 1000 ML 1,000 ML IV SCH ×3 (01:19→17:59)
[2020-10-25 02:54] LABS: BASOPHILS % (AUTO) 0 % (0-10); EOSINOPHILS % (AUTO) 0 % (0-10); HEMATOCRIT 34 % (35-52); HEMOGLOBIN 10.6 g/dL (11.5-16.0); LYMPHOCYTES # (AUTO) 0.7 10^3/uL (1.0-4.0); LYMPHOCYTES % (AUTO) 15 % (12-44); MEAN CORPUSCULAR HEMOGLOBIN 31 pg (25-34); MEAN CORPUSCULAR HGB CONC 31 g/dL (32-36); MEAN CORPUSCULAR VOLUME 99 fL (80-99); MEAN PLATELET VOLUME 10.3 fL (9.0-12.2); MONOCYTES # (AUTO) 0.2 10^3/uL (0.0-1.0); MONOCYTES % (AUTO) 3 % (0-12); NEUTROPHILS # (AUTO) 3.8 10^3/uL (1.8-7.8); NEUTROPHILS % (AUTO) 81 % (42-75); PLATELET COUNT 236 10^3/uL (130-400); WHITE BLOOD COUNT 4.7 10^3/uL (4.3-11.0)
[2020-10-25 03:08] LABS: CHLORIDE 111 MMOL/L (98-107); SODIUM 140 MMOL/L (135-145)
[2020-10-25 03:09] LABS: CALCIUM 7.8 MG/DL (8.5-10.1)
[2020-10-25 03:10] LABS: GLUCOSE 151 MG/DL (70-105)
[2020-10-25 03:11] LABS: CARBON DIOXIDE 19 MMOL/L (21-32)
[2020-10-25 03:13] LABS: PHOSPHORUS 1.5 MG/DL (2.3-4.7)
[2020-10-25 03:14] LABS: CREATININE SERUM 0.61 MG/DL (0.60-1.30); GFR ESTIMATED > 60
[2020-10-25 03:15] LABS: BUN/CREATININE RATIO 26
[2020-10-25 03:16] LABS: MAGNESIUM 2.6 MG/DL (1.6-2.4)
[2020-10-25] MEDS: RT-ALBUTEROL INHALER HFA (VENTOLIN HFA) 18 GM IH SCH ×5 (03:22→21:57)
[2020-10-25 03:23] VITALS: BP 98/64
[2020-10-25] MEDS: PROPOFOL DRIP (ICU) 100 ML IV SCH ×7 (03:49→21:27)
[2020-10-25 04:16] LABS: ABG BASE EXCESS -2.7 MMOL/L (-2.5-2.5); ABG OXYGEN SATURATION 95 % (94-100); ABG PCO2 35 MMHG (35-45); ABG PO2 75 MMHG (79-93); ABG TCO2 22.5 MMOL/L (21.0-31.0); INSPIRED O2 NOT INDICATED; PATIENT TEMP NOT INDICATED
[2020-10-25] MEDS: DexMEDEtomidine PRE MIX 100 ML IV SCH ×10 (04:40→22:37)
--- NOTE | 2020-10-25 05:29 | Pulmonary Consultation ---
History of Present Illness History of Present Illness Date Seen by Provider: Oct 25, 2020 Time Seen by Provider: 05:25 Date of Admission Reason for Visit: atrial fibrillation History of Present Illness 45 yo admitted with increasing shortness of breath and cough, tested positive for Covid, on arrival to the hospital she was noted to be in respiratory failure . She is currently sedated and intubated. She was noted to be in atrial fibrillation with rapid ventricular response upon admission. All information obtained from chart. Allergies and Home Medications Allergies Coded Allergies: Penicillins (Unverified Allergy, Unknown, Anaphylaxis, 05/26/20) Sulfa (Sulfonamide Antibiotics) (Unverified Allergy, Unknown, 02/04/16) amoxicillin (Verified Allergy, Unknown, Hives, 05/26/20) codeine (Unverified Allergy, Unknown, Pt has rec Hydrocodone/Ibu in the past, 06/02/20) meloxicam (Unverified Allergy, Unknown, 02/04/16) morphine (Unverified Allergy, Unknown, 02/04/16) Uncoded Allergies: PAPER TAPE (Allergy, Unknown, 02/04/16) PINK DYE (Allergy, Unknown, 02/04/16) PURPLE DYE (Allergy, Unknown, 02/04/16) Home Medications Acetaminophen 500 Mg Tablet, 1,000 MG PO Q8H PRN for PAIN-MILD (1-4) OR TEMPATURE, (Reported) Albuterol Sulfate 1 Puff Puff, 2 PUFF IH Q4H PRN for SHORTNESS OF BREATH, (Reported) Azithromycin 250 Mg Tablet, 250 MG PO DAILY, (Reported) FILLED 10-19-2020 #6/5 DAY SUPPLY Budesonide/Formoterol Fumarate 10.2 Gm Hfa.aer.ad, 2 PUFF INH BID, (Reported) Ferrous Sulfate, Dried Unknown Strength Tablet.er, 65 MG PO BID, (Reported) Gabapentin 600 Mg Tablet, 600 MG PO BID, (Reported) Hydrocodone/Ibuprofen 1 Each Tablet, 1 TAB PO Q6H PRN for PAIN-MODERATE (5-7), (Reported) Metformin HCl 1,000 Mg Tablet, 1,000 MG PO BID, (Reported) Oxybutynin Chloride 10 Mg Tab.er.24, 10 MG PO BID, (Reported) Potassium Chloride 20 Meq Tab.er.prt, 20 MEQ PO BID, (Reported) Prednisone 20 Mg Tab, 40 MG PO DAILY, (Reported) TAKES 2 (20MG) TABS FILLED 10-19-2020 #8/4 DAY SUPPLY Quetiapine Fumarate 300 Mg Tablet, 300 MG PO HS, (Reported) Semaglutide 0.25 Mg/0.2 Ml Pen.injctr, 0.25 MG SQ WED, (Reported) Topiramate 100 Mg Tablet, 200 MG PO BID, (Reported) TAKES 2 (100MG) TABS Venlafaxine HCl 150 Mg Cap.er.24h, 150 MG PO DAILY, (Reported) Past Mrsjrel-Xhmqvy-Wnrpmh Hx Past Med/Social Hx: Reviewed Nursing Past Med/Soc Hx, Reviewed and Corrections made Patient Social History Alcohol Use: Denies Use Recreational Drug Use: No Smoking Status: Unknown if Ever Smoked Type Used: Cigarettes Former Smoker, Quit: March 26, 2005 2nd Hand Smoke Exposure: No Recent Foreign Travel: No Contact w/Someone Who Travel: No Recent Infectious Disease Expo: Yes Recent Hopitalizations: No Immunizations Up To Date Tetanus Booster (TDap): Unknown Date of Pneumonia Vaccine: Sep 11, 2017 Date of Influenza Vaccine: Aug 26, 2017 Seasonal Allergies Seasonal Allergies: No Past Medical History Surgeries: Yes (hernia) Abdominal, Ear Surgery, Gallbladder, Hysterectomy Respiratory: Yes Asthma Currently Using CPAP: No Currently Using BIPAP: No Cardiac: No Neurological: Yes Headaches /Migraines Reproductive Disorders: No [employer] History: Hysterectomy Sexually Transmitted Disease: No Genitourinary: Yes (incontinence) UTI-Chronic Gastrointestinal: No Musculoskeletal: Yes (Left knee ) Degenerate Disk Disease, Arthritis, Chronic Back Pain Endocrine: Yes Diabetes, Insulin dep HEENT: No Cancer: No Psychosocial: Yes Bipolar Integumentary: No Blood Disorders: Yes (anemia) Review of Systems Time Seen by Provider: 08:24 Sepsis Event Evaluation Height, Weight, BMI Height: 5'4.00" Weight: 281lbs. 0.0oz. 127.909635ej; 74.00 BMI Method:Stated Exam Exam Vital Signs Date Time Temp Pulse Resp B/P (MAP) Pulse Ox O2 Delivery O2 Flow Rate FiO2 10/25/20 04:40 135 10/25/20 03:49 122 10/25/20 03:49 122 10/25/20 03:23 134 24 95 40 10/25/20 02:00 38.9 120 24 96 Mechanical Ventilator 40.00 10/25/20 01:00 127 10/25/20 01:00 38.8 141 24 97 Mechanical Ventilator 40.00 10/25/20 00:00 38.8 121 24 97 Mechanical Ventilator 40.00 10/24/20 23:12 134 24 95 40 10/24/20 23:00 38.8 126 23 97 Mechanical Ventilator 45.00 10/24/20 22:21 123 10/24/20 22:20 123 24 10/24/20 22:00 38.7 116 23 97 Mechanical Ventilator 45.00 10/24/20 21:00 38.7 121 23 97 Mechanical Ventilator 45.00 10/24/20 21:00 97 Mechanical Ventilator 40 10/24/20 20:00 38.8 131 23 96 Mechanical Ventilator 45.00 10/24/20 20:00 38.7 115 23 10/24/20 19:30 38.7 122 24 96 Mechanical Ventilator 45.00 10/24/20 19:13 124 24 99 60 10/24/20 19:00 38.7 126 23 99 Mechanical Ventilator 70.00 10/24/20 19:00 126 10/24/20 18:00 38.5 122 24 97 Mechanical Ventilator 70.00 10/24/20 17:45 38.3 134 23 100/63 97 Mechanical Ventilator 10/24/20 17:00 38.3 134 23 97 Mechanical Ventilator 70.00 10/24/20 16:25 133 100/63 10/24/20 16:24 38.2 133 22 100/63 98 Mechanical Ventilator 10/24/20 16:24 133 100/63 10/24/20 16:00 38.2 133 22 98 Mechanical Ventilator 100.00 10/24/20 15:00 38.0 125 22 99 Mechanical Ventilator 100.00 10/24/20 14:39 123 24 99 90 10/24/20 14:00 38.0 108 11 99 Mechanical Ventilator 100.00 10/24/20 13:43 38.1 120 13 98/50 98 Mechanical Ventilator 10/24/20 13:00 120 10/24/20 13:00 38.1 125 13 98 Mechanical Ventilator 100.00 10/24/20 12:00 38.2 108 16 94 Mechanical Ventilator 100.00 10/24/20 11:16 38.7 130 24 98/50 93 Mechanical Ventilator 10/24/20 11:00 38.5 129 23 Mechanical Ventilator 100.00 10/24/20 10:51 130 24 93 100 10/24/20 10:26 38.7 10/24/20 10:00 38.6 125 24 93 Mechanical Ventilator 100.00 10/24/20 09:54 122 10/24/20 09:44 125 117/77 10/24/20 09:38 134 10/24/20 09:00 38.8 112 23 90 Mechanical Ventilator 55.00 10/24/20 09:00 92 Mechanical Ventilator 80 10/24/20 08:00 38.9 144 94 Mechanical Ventilator 55.00 10/24/20 07:18 128 10/24/20 07:00 135 10/24/20 07:00 38.7 138 97 Mechanical Ventilator 55.00 10/24/20 06:47 122 24 96 55 10/24/20 06:00 38.9 122 97 Mechanical Ventilator 55.00 10/24/20 05:58 102/68 10/24/20 05:38 85/56 I & O 10/25/20 07:00 Intake Total 2175 ml Output Total 1850 ml Balance 325 ml Height & Weight Height: 5'4.00" Weight: 281lbs. 0.0oz. 127.808887kt; 74.00 BMI Method:Stated General Appearance: No Apparent Distress, WD/WN, Chronically ill, Obese HEENT: PERRL/EOMI, TMs Normal Neck: Full Range of Motion, Normal Inspection Respiratory: No Accessory Muscle Use, No Respiratory Distress, Decreased Breath Sounds Cardiovascular: Regular Rate, Rhythm, No Edema, No Gallop, No JVD, No Murmur, Normal Peripheral Pulses Capillary Refill: Less Than 3 Seconds Extremity: Normal Capillary Refill, Normal Inspection Neurologic/Psychiatric: Alert, Oriented x3, Disoriented Skin: Normal Color, Warm/Dry Lymphatic: No Adenopathy Results Lab Laboratory Tests 10/24/20 02:30 10/25/20 02:40 Assessment/Plan Assessment/Plan Acute respiratory failure with ARDS secondary to COVID -Currently on Vent -Decrease PEEP to 14 -Currently Fi02 30% -Proning -Remdesivir, CVP -Decadron Afib RVR -Eliquis -Cardiology Morbid obesity Plan: COVID-19 treatment Intubation Lovenox Monitor closely Cardiology consultation 10/24/20: Intubation Sedation management Monitor BP Prone schedule EDWIN REIS DO Oct 25, 2020 05:29
[2020-10-25 06:54] VITALS: BP 100/69
[2020-10-25] MEDS ORDERED: SODIUM PHOSPHATE INJ 30 MM in NS (IVPB) 250 ML IV ONE (08:00)
--- NOTE | 2020-10-25 08:15 | Progress Note - Hospitalist ---
Subjective HPI/CC On Admission Date Seen by Provider: Oct 25, 2020 Time Seen by Provider: 10:00 CC: Respiratory failure due to COVID-19 PNA HPI: This is a 45 yoWF clinic patient of [facility] who presents to the ER with dyspnea and hypoxia and rapid heart rate. AF w/RVR dx and COVID swab was positive. Patient was placed in the ICU for Cardiology management with rate management drips and required hi-martina O2 then Vapotherm and then biPAP. She is tachypneic and pursed lip breathing and is struggling to breath and I talk to her about the ventilator and she is agreeable for the plan for intubation and supportive care. Subjective/Events-last exam Pt running a high fever and cold packs and Tylenol have been given Pt really is at high-risk for complete decompensation Maintained intubation Appreciate Dr. Melchor Review of Systems General: Fatigue Pulmonary: Dyspnea Objective Exam Vital Signs Vital Signs Date Time Temp Pulse Resp B/P (MAP) Pulse Ox O2 Delivery O2 Flow Rate FiO2 10/26/20 03:35 38.6 10/26/20 03:06 123 29 94 55 10/25/20 21:00 Mechanical Ventilator 10/25/20 20:38 115/76 10/25/20 18:00 40.00 Capillary Refill : Less Than 3 Seconds General Appearance: No Apparent Distress, WD/WN, Chronically ill, Other (se dated) Respiratory: Lungs Clear Cardiovascular: Regular Rate, Rhythm Results/Procedures Lab Laboratory Tests 10/26/20 04:29 Patient resulted labs reviewed. Assessment/Plan Assessment and Plan Assess & Plan/Chief Complaint Assessment: Respiratory failure requiring intubation due to failure on biPAP COVID-19 PNA AF w/RVR Hypoxia DM Obesity Plan: COVID-19 treatment Intubation Lovenox Monitor closely Cardiology consultation 10/24/20: Intubation Sedation management Monitor BP Prone schedule 10/25/20: Monitor closely Temperature management Diagnosis/Problems Diagnosis/Problems (1) COVID-19 Status: Acute (2) Atrial fibrillation with RVR Status: Acute (3) Respiratory distress Status: Acute Clinical Quality Measures DVT/VTE Risk/Contraindication: Risk Factor Score Per Nursin RFS Level Per Nursing on Admit: 4+=Very High LMAIN PALACIO DO Oct 25, 2020 08:15
[2020-10-25] MEDS: ASPIRIN 81 MG CHEW (CHILDREN'S ASA) PO SCH (08:22)
[2020-10-25] MEDS: REMDESIVIR INJ 100 MG in NS (IVPB) 230 ML IV SCH (08:22)
[2020-10-25] MEDS: MICONAZOLE 2% POWDER (DESENEX AF) 90 GM TOP SCH (08:23)
[2020-10-25] MEDS: APIXABAN 5 MG (ELIQUIS) TABLET PO SCH ×2 (08:23→21:22)
[2020-10-25] MEDS: meTOprolol TARTRATE 25 MG (LOPRESSOR) TABLET PO SCH ×2 (08:23→21:22)
[2020-10-25] MEDS: PANTOPRAZOLE 40 MG (PROTONIX) VIAL IV SCH (08:24)
[2020-10-25] MEDS: APAP 325 MG/10.15 ML LIQ (TYLENOL) UDC PO PRN ×3 (08:34→21:23)
--- NOTE | 2020-10-25 09:18 | Cardiology Progress Note ---
Subjective Date Seen by Provider: Oct 25, 2020 Time Seen by Provider: 09:17 Subjective/Events-last exam Patient is sedated and intubated. Tachycardic Review of Systems General: Other (unable to provide review of systems) Objective-Cardiology Exam Last Set of Vital Signs Vital Signs 10/25/20 10/25/20 10/25/20 10/25/20 06:00 06:54 08:35 08:48 Temp 38.4 Pulse 122 Resp 24 B/P (MAP) 96/65 Pulse Ox 94 O2 Delivery Mechanical Ventilator O2 Flow Rate 40.00 FiO2 55 Capillary Refill : Less Than 3 Seconds I&O Intake and Output 10/25/20 00:00 Intake Total 2075 ml Output Total 2000 ml Balance 75 ml Intake Oral 0 ml IV Total 1950 ml Other 125 ml Output Urine Total 1650 ml Gastric Drainage Total 350 ml General: Other (sedated and intubated) HEENT: Atraumatic Heart: Other (atrial fibrillation) Neuro: Other (sedated and intubated) Psych/Mental Status: Other (sedated and intubated) Results Lab Laboratory Tests 10/25/20 02:40 A/P-Cardiology Admission Diagnosis Acute respiratory failure COVID-19 pneumonia Atrial fibrillation Diabetes mellitus Assessment/Plan Acute respiratory failure, ventilator dependent, on PEEP 14, managed by primary care team COVID-19 pneumonia, respiratory failure, managed by primary care team Hypotension, better today, was unable to tolerate Cardizem drip, continue to monitor blood pressure. Atrial fibrillation with rapid ventricular response, tachycardic, unable to tolerate Cardizem due to hypotension [id number] score of 4, yearly risk of stroke without oral anticoagulation is 4.2 percent. Continue on oral anticoagulation if patient can tolerate the medication Diabetes mellitus, followed and managed by primary care physician Bronchial asthma/COPD, has been followed and managed by primary care physician. Obesity. Questionable sleep apnea. Clinical Quality Measures DVT/VTE Risk/Contraindication: Risk Factor Score Per Nursin RFS Level Per Nursing on Admit: 4+=Very High SWAPNIL PLUMMER MD Oct 25, 2020 09:18
--- NOTE | 2020-10-25 10:12 | NUR ---
Notified Dr. Melchor that pt T continues to rise, received new orders, see order history.
[2020-10-25 10:49] VITALS: BP 99/71
[2020-10-25] MEDS: dilTIAZem DRIP PRE-MIX 125 ML IV SCH (12:00)
[2020-10-25] MEDS ORDERED: KETOROLAC 30 MG/ML VIAL IVP NR (13:45)
[2020-10-25 14:28] VITALS: BP 126/83
[2020-10-25] MEDS: HYDROmorphone 2 MG/ML VIAL (DILAUDID) IV PRN (16:54)
--- NOTE | 2020-10-25 17:20 | NUR ---
Note pt is currently intubated/sedated. During care rounds, it was noted to initiate TF. Recommend Pulmocare at 15ml/hr with 25ml water flushes q4h. Will continue to follow and reassess as pt needs, intake, and status change. Power Vieyra, MS RD LD [phone] cell
[2020-10-25 19:06] VITALS: BP 102/77
[2020-10-25 21:58] VITALS: BP 118/52
[2020-10-26] MEDS: inSUlin ASPART (NovoLOG) 1 UNIT/0.01 ML (CHARGE PER UNIT) SC SCH ×5 (00:11→23:07)
[2020-10-26] MEDS: MICONAZOLE 2% POWDER (DESENEX AF) 90 GM TOP SCH ×3 (00:12→20:25)
[2020-10-26] MEDS: DexMEDEtomidine PRE MIX 100 ML IV SCH (02:10)
[2020-10-26] MEDS: APAP 325 MG/10.15 ML LIQ (TYLENOL) UDC PO PRN ×2 (02:11→09:20)
[2020-10-26] MEDS: CISATRACURIUM INJECTION 100 MG in NS (IVPB) 200 ML IV SCH (02:16)
[2020-10-26] MEDS: PROPOFOL DRIP (ICU) 100 ML IV SCH (02:23)
[2020-10-26 03:06] VITALS: BP 103/66
[2020-10-26] MEDS: RT-ALBUTEROL INHALER HFA (VENTOLIN HFA) 18 GM IH SCH ×5 (03:06→18:51)
[2020-10-26] MEDS: LACTATED RINGERS 500 ML IV SCH ×2 (03:19→03:20)
[2020-10-26 03:57] LABS: ABG OXYGEN SATURATION 95 % (94-100); ABG PCO2 29 MMHG (35-45); ABG PH 7.44 (7.37-7.43); ABG PO2 76 MMHG (79-93); ABG TCO2 20.4 MMOL/L (21.0-31.0)
[2020-10-26 03:58] LABS: INSPIRED O2 NOT INDICATED; PATIENT TEMP NOT INDICATED
[2020-10-26 04:43] LABS: BASOPHILS % (AUTO) 0 % (0-10); EOSINOPHILS % (AUTO) 0 % (0-10); HEMATOCRIT 28 % (35-52); HEMOGLOBIN 9.3 g/dL (11.5-16.0); LYMPHOCYTES # (AUTO) 0.8 10^3/uL (1.0-4.0); LYMPHOCYTES % (AUTO) 21 % (12-44); MEAN CORPUSCULAR HEMOGLOBIN 33 pg (25-34); MEAN CORPUSCULAR HGB CONC 33 g/dL (32-36); MEAN CORPUSCULAR VOLUME 101 fL (80-99); MEAN PLATELET VOLUME 10.2 fL (9.0-12.2); MONOCYTES # (AUTO) 0.1 10^3/uL (0.0-1.0); MONOCYTES % (AUTO) 4 % (0-12); NEUTROPHILS # (AUTO) 2.7 10^3/uL (1.8-7.8); NEUTROPHILS % (AUTO) 73 % (42-75); PLATELET COUNT 204 10^3/uL (130-400); WHITE BLOOD COUNT 3.7 10^3/uL (4.3-11.0)
[2020-10-26 04:50] LABS: CHLORIDE 115 MMOL/L (98-107); POTASSIUM 3.8 MMOL/L (3.6-5.0); SODIUM 139 MMOL/L (135-145)
[2020-10-26 04:51] LABS: CALCIUM 6.3 MG/DL (8.5-10.1)
[2020-10-26 04:52] LABS: GLUCOSE 169 MG/DL (70-105)
[2020-10-26 04:53] LABS: CARBON DIOXIDE 16 MMOL/L (21-32)
[2020-10-26 04:55] LABS: CREATININE SERUM 0.53 MG/DL (0.60-1.30); GFR ESTIMATED > 60
[2020-10-26 04:56] LABS: BUN/CREATININE RATIO 32
[2020-10-26 04:58] LABS: MAGNESIUM 2.1 MG/DL (1.6-2.4)
[2020-10-26 05:00] LABS: PHOSPHORUS 0.7 MG/DL (2.3-4.7)
[2020-10-26 05:03] LABS: TRIGLYCERIDES 1228 MG/DL (<150)
[2020-10-26] MEDS ORDERED: VANCOMYCIN INJECTION 1,000 MG in NS (IVPB) 250 ML IV SCH (05:15)
[2020-10-26] MEDS ORDERED: PHARMACY TO DOSE IV SCH (05:15)
--- NOTE | 2020-10-26 05:16 | Pulmonary Progress Note ---
Subjective Time Seen by a Provider: 05:11 Subjective/Events-last exam sedated on vent. Sepsis Event Evaluation Height, Weight, BMI Height: 5'4.00" Weight: 281lbs. 0.0oz. 127.250540pg; 74.00 BMI Method:Stated Exam Exam Vital Signs Date Time Temp Pulse Resp B/P (MAP) Pulse Ox O2 Delivery O2 Flow Rate FiO2 10/26/20 03:35 38.6 10/26/20 03:06 123 29 94 55 10/26/20 02:23 123 10/26/20 02:23 135 10/26/20 02:11 38.6 10/26/20 02:10 38.5 126 10/26/20 01:00 149 10/25/20 22:38 38.3 10/25/20 22:37 38.3 140 10/25/20 21:58 116 24 96 10/25/20 21:27 130 10/25/20 21:23 38.1 10/25/20 21:23 123 10/25/20 21:00 97 Mechanical Ventilator 40 10/25/20 20:38 128 115/76 10/25/20 19:06 134 24 95 55 10/25/20 19:00 111 10/25/20 18:39 117 108/75 94 Mechanical Ventilator 10/25/20 18:00 38.0 112 32 94 Mechanical Ventilator 40.00 10/25/20 17:00 38.1 112 48 92 Mechanical Ventilator 40.00 10/25/20 16:52 135 10/25/20 16:00 38.2 133 23 94 Mechanical Ventilator 40.00 10/25/20 15:31 122 121/82 10/25/20 15:30 122 114/85 10/25/20 15:00 38.6 142 94 Mechanical Ventilator 40.00 10/25/20 14:36 108 114/78 93 Mechanical Ventilator 55.00 10/25/20 14:28 121 24 93 55 10/25/20 14:00 38.8 109 94 Mechanical Ventilator 40.00 10/25/20 13:00 38.8 120 94 Mechanical Ventilator 40.00 10/25/20 12:46 114/75 10/25/20 12:21 125 10/25/20 12:00 38.7 123 23 94 Mechanical Ventilator 40.00 10/25/20 11:00 38.8 114 23 93 Mechanical Ventilator 40.00 10/25/20 10:49 121 24 92 55 10/25/20 10:34 110/70 10/25/20 10:00 38.7 114 23 90 Mechanical Ventilator 40.00 10/25/20 09:30 133 100/68 10/25/20 09:29 133 111/65 10/25/20 09:00 38.5 128 23 93 Mechanical Ventilator 40.00 10/25/20 08:48 94 Mechanical Ventilator 55 10/25/20 08:35 122 96/65 93 Mechanical Ventilator 10/25/20 08:00 38.3 128 24 95 Mechanical Ventilator 40.00 10/25/20 07:00 38.0 137 24 95 Mechanical Ventilator 40.00 10/25/20 06:54 134 24 95 55 10/25/20 06:36 124 10/25/20 06:34 134 10/25/20 06:00 38.4 144 10/25/20 06:00 37.7 101 23 96 Mechanical Ventilator 40.00 I & O 10/26/20 07:00 Intake Total 1700 ml Output Total 1160 ml Balance 540 ml Height & Weight Height: 5'4.00" Weight: 281lbs. 0.0oz. 127.772430uj; 74.00 BMI Method:Stated General Appearance: WD/WN, Chronically ill, Obese, Other (sedated on vent) HEENT: PERRL/EOMI, TMs Normal Neck: Full Range of Motion, Normal Inspection Respiratory: No Accessory Muscle Use, No Respiratory Distress, Decreased Breath Sounds Cardiovascular: No Gallop, No JVD, No Murmur, Normal Peripheral Pulses Capillary Refill: Less Than 3 Seconds Extremity: Normal Capillary Refill, Normal Inspection Neurologic/Psychiatric: Disoriented Skin: Normal Color, Warm/Dry Lymphatic: No Adenopathy Results Lab Laboratory Tests 10/25/20 02:40 10/26/20 04:29 Assessment/Plan Assessment/Plan Acute respiratory failure with ARDS secondary to COVID -Currently on Vent -Decrease VT to 400 -Currently on Propofol and precedex -Hold for sedation vacation. -Will switch to fentanyl and Versed secondary to high triglycerides -PEEP to 14 -Currently Fi02 55% -Prone pt x 16hrs -Remdesivir, CVP -Decadron PNA with s. aureus -Start Vanco and await cultures Afib RVR -Eliquis -Cardiology Decrease phos -Replace Morbid obesity EDWIN REIS DO Oct 26, 2020 05:16
[2020-10-26] MEDS ORDERED: VANCOMYCIN INJECTION 2,000 MG in NS IV 500 ML 500 ML IV SCH (06:30)
--- NOTE | 2020-10-26 06:30 | NUR ---
DR. REIS CALLED PATIENT'S SON, CRISTHIAN ABREU. PASSWORD VERIFIED. EXPLAINED THAT PATIENT CONDITION REQUIRES INTUBATION AT THIS TIME. TELEPHONE CONSENT GIVEN PER SPEAKER PHONE. THIS RN PRESENT WITNESS.
[2020-10-26] MEDS ORDERED: SODIUM PHOSPHATE INJ 30 MM in NS (IVPB) 250 ML IV ONE (07:00)
[2020-10-26] MEDS ORDERED: PROPOFOL DRIP (ICU) 100 ML IV ONE (07:52)
[2020-10-26 08:19] VITALS: BP 124/66
[2020-10-26] MEDS: REMDESIVIR INJ 100 MG in NS (IVPB) 230 ML IV SCH (08:40)
[2020-10-26] MEDS: PANTOPRAZOLE 40 MG (PROTONIX) VIAL IV SCH (08:41)
[2020-10-26] MEDS: ASPIRIN 81 MG CHEW (CHILDREN'S ASA) PO SCH (08:43)
[2020-10-26] MEDS: APIXABAN 5 MG (ELIQUIS) TABLET PO SCH ×2 (08:43→20:23)
[2020-10-26] MEDS: HYDROmorphone 2 MG/ML VIAL (DILAUDID) IV PRN (08:43)
--- NOTE | 2020-10-26 08:57 | Diagnostic Imaging Report ---
Indication: Shortness of breath. Time of exam: 8:22 AM Correlation is made with prior chest from 10/24/2020. The endotracheal tube has the tip at the level just above the clavicular heads. NG tube appears to pass below the diaphragm. Left upper extremity PICC line has tip overlying the right atrium. The patient has developed some airspace consolidation in the right mid and upper lung field since 2 days earlier. There is also patchy infiltrate left mid and lower lung field. No effusion or pneumothorax is identified. Impression: Bilateral infiltrates. Patient has developed air space consolidation mid and upper lung field on the right. There has been improved aeration on the left. Dictated by: Dictated on workstation # [id number]
[2020-10-26 09:26] LABS: ABG BASE EXCESS -5.6 MMOL/L (-2.5-2.5); ABG OXYGEN SATURATION 86 % (94-100); ABG PCO2 48 MMHG (35-45); ABG PO2 73 MMHG (79-93); ABG TCO2 21.3 MMOL/L (21.0-31.0)
[2020-10-26] MEDS ORDERED: fentaNYL DRIP PRE-MIX 250 ML IV ONE (09:26)
[2020-10-26] MEDS ORDERED: MIDAZOLAM DRIP PRE-MIX 100 ML IV ONE (09:29)
[2020-10-26] MEDS ORDERED: NOREPINEPHRINE 4 MG/250 ML 250 ML IV ONE (09:30)
[2020-10-26] MEDS ORDERED: ALBUMIN 25% 25 GM/100 ML 100 ML IV ONE (09:31)
[2020-10-26 09:33] LABS: ABG PH 7.26 (7.37-7.43); INSPIRED O2 100%; VENTILATOR YES
[2020-10-26] MEDS ORDERED: ALBUMIN 25% 25 GM/100 ML 50 ML IV ONE (09:45)
--- NOTE | 2020-10-26 09:48 | Diagnostic Imaging Report ---
INDICATION: Covid positive, endotracheal tube. COMPARISON: Imaging from the same date TECHNIQUE: Single radiograph of the chest dated 10/26/2020. FINDINGS: Endotracheal tube is again identified with the distal tip overlying the tracheal air column above the level of the richardson just inferior to the level of the clavicular heads. Enteric catheter is present with the distal tip extending into the right upper abdomen. Left-sided PICC line is again identified and stable. The cardiac silhouette is unchanged. No significant pulmonary vascular congestion. Extensive bilateral pulmonary infiltrates are again noted, appearing similar to the prior examination. No large volume pleural effusion. No pneumothorax. No acute osseous abnormality. IMPRESSION: Lines and tubes as described above, appearing appropriately positioned. Persistent extensive bilateral pulmonary infiltrates. Dictated by: Dictated on workstation # [id number]
[2020-10-26] MEDS: NOREPINEPHRINE 4 MG/250 ML 250 ML IV SCH ×4 (09:59→23:08)
[2020-10-26] MEDS: meTOprolol TARTRATE 25 MG (LOPRESSOR) TABLET PO SCH (10:29)
--- NOTE | 2020-10-26 10:39 | Progress Note - Cardiology ---
Cardiology SOAP Progress Note Subjective: Intubated and sedated Spoke with nursing this morning She became hypotensive, tachycardic this morning, fever 103 Objective: I&O/Vital Signs 10/26/20 10/26/20 10/26/20 10/26/20 05:00 06:00 07:00 08:00 Temp 38.7 38.4 38.6 38.6 Pulse 138 140 142 146 Resp 25 26 28 28 B/P (MAP) Pulse Ox 93 93 93 92 O2 Delivery Mechanical Ventilator Mechanical Ventilator Mechanical Ventilator Mechanical Ventilator O2 Flow Rate 40.00 40.00 40.00 40.00 10/26/20 10/26/20 10/26/20 10/26/20 08:00 08:19 08:45 09:00 Temp 38.7 Pulse 141 133 Resp 33 22 B/P (MAP) Pulse Ox 94 89 88 O2 Delivery Mechanical Ventilator Mechanical Ventilator Mechanical Ventilator O2 Flow Rate 100.00 100.00 FiO2 55 55 10/26/20 10/26/20 10/26/20 10/26/20 09:20 09:50 09:59 10:00 Temp 39.0 38.5 39.0 Pulse 141 152 Resp 20 B/P (MAP) 124/66 Pulse Ox 92 O2 Delivery Mechanical Ventilator O2 Flow Rate 100.00 10/26/20 10/26/20 10/26/20 10/26/20 11:00 11:35 11:37 12:00 Temp 38.4 38.1 Pulse 140 141 161 156 Resp 16 33 32 17 B/P (MAP) 124/66 Pulse Ox 98 100 96 O2 Delivery Mechanical Ventilator Mechanical Ventilator O2 Flow Rate 100.00 100.00 FiO2 100 10/26/20 10/26/20 10/26/20 10/26/20 12:15 12:30 13:00 14:32 Temp 38.1 Pulse 151 158 Resp 27 B/P (MAP) 120/67 Pulse Ox 91 O2 Delivery Mechanical Ventilator Mechanical Ventilator Mechanical Ventilator O2 Flow Rate 80.00 100.00 100.00 10/26/20 15:12 Pulse 156 Resp 28 Pulse Ox 90 FiO2 100 10/26/20 00:00 Intake Total 900 ml Output Total 560 ml Balance 340 ml Weight (Pounds): 281 Weight (Ounces): 0.0 Weight (Calculated Kilograms): 127.837898 Results/Procedures: Labs Laboratory Tests 10/25/20 16:39: Glucometer 176H 10/26/20 00:09: Glucometer 157H 10/26/20 03:30: Blood Gas Puncture Site NOT INDICATED, Blood Gas Patient Temperature NOT INDICATED, Arterial Blood pH 7.44H, Arterial Blood Partial Pressure CO2 29L, Arterial Blood Partial Pressure O2 76L, Arterial Blood HCO3 20L, Arterial Blood Total CO2 20.4L, Arterial Blood Oxygen Saturation 95, Arterial Blood Base Excess -4.0L, Hilario Test NA, Blood Gas Ventilator Setting NA, Blood Gas Inspired Oxygen NOT INDICATED 10/26/20 04:29: White Blood Count 3.7L, Red Blood Count 2.81L, Hemoglobin 9.3L, Hematocrit 28L, Mean Corpuscular Volume 101H, Mean Corpuscular Hemoglobin 33, Mean Corpuscular Hemoglobin Concent 33, Red Cell Distribution Width 13.6, Platelet Count 204, Mean Platelet Volume 10.2, Immature Granulocyte % (Auto) 2, Neutrophils (%) (Auto) 73, Lymphocytes (%) (Auto) 21, Monocytes (%) (Auto) 4, Eosinophils (%) (Auto) 0, Basophils (%) (Auto) 0, Neutrophils # (Auto) 2.7, Lymphocytes # (Auto) 0.8L, Monocytes # (Auto) 0.1, Eosinophils # (Auto) 0.0, Basophils # (Auto) 0.0, Immature Granulocyte # (Auto) 0.1, Sodium Level 139, Potassium Level 3.8, Chloride Level 115H, Carbon Dioxide Level 16L, Anion Gap 8, Blood Urea Nitrogen 17, Creatinine 0.53L, Estimat Glomerular Filtration Rate > 60, BUN/Creatinine Ratio 32, Glucose Level 169H, Calcium Level 6.3L, Phosphorus Level 0.7*L, Magnesium Level 2.1, B-Type Natriuretic Peptide 86.1, Triglycerides Level 1228H, Procalcitonin 1.83H 10/26/20 06:25: D-Dimer 3.49H, Lactic Acid Level 1.42 10/26/20 09:16: Blood Gas Puncture Site LT RAD, Blood Gas Patient Temperature 39.0, Arterial Blood pH 7.26*L, Arterial Blood Partial Pressure CO2 48H, Arterial Blood Partial Pressure O2 73L, Arterial Blood HCO3 20L, Arterial Blood Total CO2 21.3, Arterial Blood Oxygen Saturation 86L, Arterial Blood Base Excess -5.6L, Hilario Test NA, Blood Gas Ventilator Setting YES, Blood Gas Inspired Oxygen 100% 10/26/20 13:50: Blood Gas Puncture Site LT RAD, Blood Gas Patient Temperature 38.0, Arterial Blood pH 7.26*L, Arterial Blood Partial Pressure CO2 47H, Arterial Blood Partial Pressure O2 91, Arterial Blood HCO3 20L, Arterial Blood Total CO2 21.4, Arterial Blood Oxygen Saturation 95, Arterial Blood Base Excess -5.6L, Hilario Test NA, Blood Gas Ventilator Setting YES, Blood Gas Inspired Oxygen 100% Microbiology 10/25/20 Gram Stain, Resulted Pending 10/25/20 Sputum Culture - Preliminary, Resulted Staphylococcus aureus Usual upper respiratory yissel 10/25/20 Urine Culture - Final, Complete NO GROWTH 10/25/20 Blood Culture - Preliminary, Resulted Proteus Group See Comments Procedures NAME: KATERIN MABRY [facility] REC#: [id number] PT STATUS: ADM IN : 1975 PHYSICIAN: EDWIN REIS DO ADMIT DATE: 10/21/20/ICU Signed Date of Exam:10/26/20 CHEST 1 VIEW, AP/PA ONLY INDICATION: Covid positive, endotracheal tube. COMPARISON: Imaging from the same date TECHNIQUE: Single radiograph of the chest dated 10/26/2020. FINDINGS: Endotracheal tube is again identified with the distal tip overlying the tracheal air column above the level of the richardson just inferior to the level of the clavicular heads. Enteric catheter is present with the distal tip extending into the right upper abdomen. Left-sided PICC line is again identified and stable. The cardiac silhouette is unchanged. No significant pulmonary vascular congestion. Extensive bilateral pulmonary infiltrates are again noted, appearing similar to the prior examination. No large volume pleural effusion. No pneumothorax. No acute osseous abnormality. IMPRESSION: Lines and tubes as described above, appearing appropriately positioned. Persistent extensive bilateral pulmonary infiltrates. Dictated by: Dictated on workstation # [id number] Dict: 10/26/2043 Trans: 10/26/2053 [id number] Interpreted by: SHIRLEY MCGUIRE MD Electronically signed by: SHIRLEY MCGUIRE MD 10/26/20 0953 A/P: Assessment: Acute respiratory failure, ventilator dependent COVID-19 pneumonia, respiratory failure Hypotension likely secondary to sepsis, requiring Levophed Atrial fibrillation with rapid ventricular response - rate not well controlled [id number] score of 4, yearly risk of stroke without oral anticoagulation is 4.2 percent. Continue on oral anticoagulation with Eliquis Diabetes mellitus, followed and managed by primary care physician Bronchial asthma/COPD Obesity. Questionable sleep apnea. Plan: Worsening resp status this morning requiring increased PEEP Hypotension requiring pressor support A-fib with RVR - rate not well controlled - start IV Cardizem - titrate as tolerated IV BB as tolerated Replace electrolytes as indicated Monitor lab closely Records from Dr. Rojas reviewed BABAK SILVA Oct 26, 2020 10:39
[2020-10-26] MEDS: fentaNYL DRIP PRE-MIX 250 ML IV SCH ×3 (11:34→21:39)
[2020-10-26] MEDS: MIDAZOLAM DRIP PRE-MIX 100 ML IV SCH ×2 (11:35→20:43)
[2020-10-26] MEDS: dilTIAZem DRIP PRE-MIX 125 ML IV SCH ×2 (11:35→20:26)
[2020-10-26 11:37] VITALS: BP 137/73
[2020-10-26] MEDS: meTOprolol 5 MG/5 ML (LOPRESSOR) VIAL IV SCH ×3 (12:10→23:10)
--- NOTE | 2020-10-26 12:45 | Physician Query Clarification ---
Physician Query-General Query to Physician: The medical record reflects the following clinical scenario: History/Risk factors: Covid 19, PNA Clinical Findings: On admission VS: HR 179, RR 30, T 38.6, "Hypoxia/AHRF' LA 2.87 Treatment: IV fluid bolus, IV steroids, Remdesivir, 02 100%, Bipap -> Vent Question: What condition best reflects the above clinical scenario? Please document response in the Progress notes or Discharge Summary. 1. Severe Sepsis present on admission due to Covid 19/Pneumonia 2. Covid 19/Pneumonia(as currently documented) 3. Other , with explanation of the clinical findings 4. Clinically undetermined, no explanation for the clinical findings Please remember a lack of response to the above will prompt a phone page by CDI/coding staff In responding to this query, please exercise your independent professional judgment. The purpose of this communication is to more accurately reflect the complexity of your patients condition. The fact that a question is asked does not imply that any particular answer is desired or expected. Thank you for timely response to this clarification. Juana Kat, MSN, RN RN Specialist-Clinical Doc Improvement CD -Health Info Mgmt Operations [address] [facility] t: [phone] | f: [phone] If you are unable to reach me at my extension, I may be working from home. Please contact me at [phone] PHYSICIAN RESPONSE: Based on the clinical findings in the record, please respond to the query above on this document as an addendum. Physician Response: Physician Response 2 If you have questions please contact: Needle Control Cheniller: Ext: Thank you for your time and cooperation. Clinical Injection Operator/Needle Control Cheniller This is a permanent part of the medical record JUANA KAT Oct 26, 2020 12:45 LAMIN PALACIO DO Oct 26, 2020 19:25
[2020-10-26 14:09] LABS: ABG BASE EXCESS -5.6 MMOL/L (-2.5-2.5); ABG OXYGEN SATURATION 95 % (94-100); ABG PCO2 47 MMHG (35-45); ABG PO2 91 MMHG (79-93); ABG TCO2 21.4 MMOL/L (21.0-31.0)
[2020-10-26 14:11] LABS: ABG PH 7.26 (7.37-7.43); INSPIRED O2 100%; VENTILATOR YES
--- NOTE | 2020-10-26 14:23 | Progress Note - Cardiology ---
Cardiology SOAP Progress Note Subjective: Nurses have reported hypotension and fever this am Objective: I&O/Vital Signs 10/26/20 10/26/20 10/26/20 10/26/20 02:23 02:23 03:00 03:06 Temp 38.6 Pulse 135 123 122 123 Resp 26 29 B/P (MAP) Pulse Ox 94 94 O2 Delivery Mechanical Ventilator O2 Flow Rate 40.00 FiO2 55 10/26/20 10/26/20 10/26/20 10/26/20 03:35 04:00 05:00 06:00 Temp 38.6 38.8 38.7 38.4 Pulse 146 138 140 Resp 25 25 26 B/P (MAP) Pulse Ox 95 93 93 O2 Delivery Mechanical Ventilator Mechanical Ventilator Mechanical Ventilator O2 Flow Rate 40.00 40.00 40.00 10/26/20 10/26/20 10/26/20 10/26/20 08:00 08:19 09:20 09:50 Temp 39.0 38.5 Pulse 141 Resp 33 Pulse Ox 94 89 O2 Delivery Mechanical Ventilator FiO2 55 55 10/26/20 10/26/20 10/26/20 09:59 11:35 11:37 Pulse 141 141 161 Resp 33 32 B/P (MAP) 124/66 124/66 Pulse Ox 100 FiO2 100 10/26/20 00:00 Intake Total 900 ml Output Total 560 ml Balance 340 ml Weight (Pounds): 281 Weight (Ounces): 0.0 Weight (Calculated Kilograms): 127.668806 Constitutional: other (intubated and sedated) Results/Procedures: Labs Laboratory Tests 10/25/20 16:39: Glucometer 176H 10/26/20 00:09: Glucometer 157H 10/26/20 03:30: Blood Gas Puncture Site NOT INDICATED, Blood Gas Patient Temperature NOT INDICATED, Arterial Blood pH 7.44H, Arterial Blood Partial Pressure CO2 29L, Arterial Blood Partial Pressure O2 76L, Arterial Blood HCO3 20L, Arterial Blood Total CO2 20.4L, Arterial Blood Oxygen Saturation 95, Arterial Blood Base Excess -4.0L, Hilario Test NA, Blood Gas Ventilator Setting NA, Blood Gas Inspired Oxygen NOT INDICATED 10/26/20 04:29: White Blood Count 3.7L, Red Blood Count 2.81L, Hemoglobin 9.3L, Hematocrit 28L, Mean Corpuscular Volume 101H, Mean Corpuscular Hemoglobin 33, Mean Corpuscular Hemoglobin Concent 33, Red Cell Distribution Width 13.6, Platelet Count 204, Mean Platelet Volume 10.2, Immature Granulocyte % (Auto) 2, Neutrophils (%) (Auto) 73, Lymphocytes (%) (Auto) 21, Monocytes (%) (Auto) 4, Eosinophils (%) (Auto) 0, Basophils (%) (Auto) 0, Neutrophils # (Auto) 2.7, Lymphocytes # (Auto) 0.8L, Monocytes # (Auto) 0.1, Eosinophils # (Auto) 0.0, Basophils # (Auto) 0.0, Immature Granulocyte # (Auto) 0.1, Sodium Level 139, Potassium Level 3.8, Chloride Level 115H, Carbon Dioxide Level 16L, Anion Gap 8, Blood Urea Nitrogen 17, Creatinine 0.53L, Estimat Glomerular Filtration Rate > 60, BUN/Creatinine Ratio 32, Glucose Level 169H, Calcium Level 6.3L, Phosphorus Level 0.7*L, Magnesium Level 2.1, B-Type Natriuretic Peptide 86.1, Triglycerides Level 1228H, Procalcitonin 1.83H 10/26/20 06:25: D-Dimer 3.49H, Lactic Acid Level 1.42 10/26/20 09:16: Blood Gas Puncture Site LT RAD, Blood Gas Patient Temperature 39.0, Arterial Blood pH 7.26*L, Arterial Blood Partial Pressure CO2 48H, Arterial Blood Partial Pressure O2 73L, Arterial Blood HCO3 20L, Arterial Blood Total CO2 21.3, Arterial Blood Oxygen Saturation 86L, Arterial Blood Base Excess -5.6L, Hilario Test NA, Blood Gas Ventilator Setting YES, Blood Gas Inspired Oxygen 100% 10/26/20 13:50: Blood Gas Puncture Site LT RAD, Blood Gas Patient Temperature 38.0, Arterial Blood pH 7.26*L, Arterial Blood Partial Pressure CO2 47H, Arterial Blood Partial Pressure O2 91, Arterial Blood HCO3 20L, Arterial Blood Total CO2 21.4, Arterial Blood Oxygen Saturation 95, Arterial Blood Base Excess -5.6L, Hilario Test NA, Blood Gas Ventilator Setting YES, Blood Gas Inspired Oxygen 100% Microbiology 10/25/20 Gram Stain, Resulted Pending 10/25/20 Sputum Culture - Preliminary, Resulted Staphylococcus aureus 10/25/20 Urine Culture - Final, Complete NO GROWTH 10/21/20 Blood Culture - Preliminary, Resulted No growth Laboratory Tests 10/25/20 02:40 10/26/20 04:29 A/P: Assessment: Acute respiratory failure due to COVID-19 pneumonia, ventilator dependent Hypotension likely secondary to sepsis, requiring Levophed Anemia and leucopenia Atrial fibrillation with rapid ventricular response - rate not well controlled [id number] score of 4, yearly risk of stroke without oral anticoagulation is 4.2 percent. Continue on oral anticoagulation with Eliquis Diabetes mellitus, followed and managed by primary care physician Bronchial asthma/COPD Obesity. Questionable sleep apnea. Plan: Worsening resp status this morning requiring increased PEEP Hypotension requiring pressor support A-fib with RVR - rate not well controlled - start IV Cardizem - titrate as tolerated IV BB as tolerated Replace electrolytes as indicated Monitor lab closely Records from Dr. Rojas reviewed WING FRANCO MD FACP [facility] CCDS Oct 26, 2020 14:23
[2020-10-26 15:12] VITALS: BP 105/62
[2020-10-26] MEDS: ACETAMINOPHEN 650 MG SUPP (TYLENOL) PR PRN ×2 (18:21→23:05)
[2020-10-26] MEDS: NS IV 1000 ML 1,000 ML IV SCH (18:22)
[2020-10-26 18:51] VITALS: BP 110/61
[2020-10-26 19:01] LABS: ALBUMIN 2.2 GM/DL (3.2-4.5); CHLORIDE 120 MMOL/L (98-107); POTASSIUM 2.8 MMOL/L (3.6-5.0); SODIUM 145 MMOL/L (135-145)
[2020-10-26 19:04] LABS: GLUCOSE 157 MG/DL (70-105); TOTAL PROTEIN 4.2 GM/DL (6.4-8.2)
[2020-10-26 19:05] LABS: BILIRUBIN,TOTAL 1.1 MG/DL (0.1-1.0); CARBON DIOXIDE 20 MMOL/L (21-32)
[2020-10-26 19:07] LABS: ALKALINE PHOSPHATASE 28 U/L (40-136); CREATININE SERUM 0.45 MG/DL (0.60-1.30); GFR ESTIMATED > 60
[2020-10-26 19:09] LABS: BUN/CREATININE RATIO 31; CALCIUM 5.8 MG/DL (8.5-10.1)
[2020-10-26 19:10] LABS: ALANINE AMINOTRANSFERASE 49 U/L (0-55)
[2020-10-26] MEDS ORDERED: CALCIUM GLUC. 10% 4.65 MEQ/10 ML VIAL IV NR (19:45)
[2020-10-26] MEDS ORDERED: POTASSIUM PHOSPHATE INJ 30 MM in NS (IVPB) 250 ML IV ONE (20:00)
[2020-10-26] MEDS: VANCOMYCIN 1,750 MG/NS 500 ML IVPB IV SCH ×2 (20:23)
[2020-10-27 01:35] VITALS: BP 112/68
[2020-10-27] MEDS: fentaNYL DRIP PRE-MIX 250 ML IV SCH ×6 (01:47→22:33)
[2020-10-27] MEDS: RT-ALBUTEROL INHALER HFA (VENTOLIN HFA) 18 GM IH SCH ×7 (01:53→22:14)
[2020-10-27 02:57] LABS: BASOPHILS % (AUTO) 0 % (0-10); EOSINOPHILS # (AUTO) 0.1 10^3/uL (0.0-0.3); EOSINOPHILS % (AUTO) 1 % (0-10); HEMATOCRIT 30 % (35-52); HEMOGLOBIN 9.9 g/dL (11.5-16.0); LYMPHOCYTES # (AUTO) 0.8 10^3/uL (1.0-4.0); LYMPHOCYTES % (AUTO) 17 % (12-44); MEAN CORPUSCULAR HEMOGLOBIN 34 pg (25-34); MEAN CORPUSCULAR HGB CONC 33 g/dL (32-36); MEAN CORPUSCULAR VOLUME 102 fL (80-99); MEAN PLATELET VOLUME 10.2 fL (9.0-12.2); MONOCYTES # (AUTO) 0.3 10^3/uL (0.0-1.0); MONOCYTES % (AUTO) 6 % (0-12); NEUTROPHILS # (AUTO) 3.6 10^3/uL (1.8-7.8); NEUTROPHILS % (AUTO) 74 % (42-75); PLATELET COUNT 258 10^3/uL (130-400); WHITE BLOOD COUNT 4.9 10^3/uL (4.3-11.0)
[2020-10-27 03:01] LABS: ABG BASE EXCESS -3.6 MMOL/L (-2.5-2.5); ABG OXYGEN SATURATION 93 % (94-100); ABG PCO2 50 MMHG (35-45); ABG PO2 86 MMHG (79-93); ABG TCO2 23.2 MMOL/L (21.0-31.0)
[2020-10-27 03:06] LABS: CHLORIDE 116 MMOL/L (98-107); POTASSIUM 4.1 MMOL/L (3.6-5.0); SODIUM 147 MMOL/L (135-145)
[2020-10-27 03:08] LABS: CALCIUM 7.7 MG/DL (8.5-10.1); GLUCOSE 142 MG/DL (70-105)
[2020-10-27 03:10] LABS: CARBON DIOXIDE 19 MMOL/L (21-32)
[2020-10-27 03:12] LABS: CREATININE SERUM 0.57 MG/DL (0.60-1.30); GFR ESTIMATED > 60; PHOSPHORUS 2.5 MG/DL (2.3-4.7)
[2020-10-27 03:13] LABS: BUN/CREATININE RATIO 33
[2020-10-27 03:14] LABS: MAGNESIUM 2.5 MG/DL (1.6-2.4)
[2020-10-27 03:19] LABS: ABG PH 7.27 (7.37-7.43)
[2020-10-27 03:20] LABS: ALLENS TEST ART LINE; VENTILATOR YES
[2020-10-27] MEDS: MAGNESIUM 1 GM/100 ML IVPB 100 ML IV SCH (03:24)
[2020-10-27] MEDS: NOREPINEPHRINE 4 MG/250 ML 250 ML IV SCH ×5 (03:24→22:04)
[2020-10-27] MEDS: POTASSIUM CL 10MEQ/50ML IVPB 50 ML IV SCH (03:24)
[2020-10-27] MEDS: KCL 20 MEQ TAB (K-DUR) PO SCH (03:24)
[2020-10-27] MEDS: APAP 325 MG/10.15 ML LIQ (TYLENOL) UDC PO PRN ×2 (03:57→09:59)
[2020-10-27] MEDS: dilTIAZem DRIP PRE-MIX 125 ML IV SCH ×3 (04:18→20:56)
--- NOTE | 2020-10-27 04:49 | Pulmonary Progress Note ---
Subjective Time Seen by a Provider: 04:46 Sepsis Event Evaluation Height, Weight, BMI Height: 5'4.00" Weight: 281lbs. 0.0oz. 127.448847gc; 74.00 BMI Method:Stated Focused Exam Lactate Level 10/26/20 06:25: Lactic Acid Level 1.42 Exam Exam Vital Signs Date Time Temp Pulse Resp B/P (MAP) Pulse Ox O2 Delivery O2 Flow Rate FiO2 10/27/20 01:35 118 28 91 55 10/27/20 01:00 112 10/26/20 23:09 Mechanical Ventilator 55.00 10/26/20 23:00 38.6 124 28 114/63 96 Mechanical Ventilator 65.00 10/26/20 22:26 Mechanical Ventilator 65.00 10/26/20 22:00 38.5 113 28 109/64 97 Mechanical Ventilator 85.00 10/26/20 21:15 Mechanical Ventilator 85 10/26/20 21:00 38.5 111 28 113/67 98 Mechanical Ventilator 85.00 10/26/20 20:45 Mechanical Ventilator 85.00 10/26/20 20:43 116/67 10/26/20 20:21 38.4 105 28 98 Mechanical Ventilator 95.00 10/26/20 20:00 38.4 112 28 112/68 98 Mechanical Ventilator 95.00 10/26/20 19:00 123 10/26/20 19:00 38.3 118 28 109/66 97 Mechanical Ventilator 95.00 10/26/20 18:51 114 28 98 100 10/26/20 18:51 100/65 10/26/20 18:51 38.2 10/26/20 18:21 38.2 10/26/20 18:00 38.1 137 28 97 Mechanical Ventilator 100.00 10/26/20 17:00 38.0 151 28 95 Mechanical Ventilator 100.00 10/26/20 16:00 38.3 179 28 92 Mechanical Ventilator 100.00 10/26/20 15:12 156 28 90 100 10/26/20 15:00 38.0 118 27 90 Mechanical Ventilator 100.00 10/26/20 14:32 158 120/67 10/26/20 14:00 38.0 131 14 92 Mechanical Ventilator 100.00 10/26/20 13:00 38.1 151 27 91 Mechanical Ventilator 100.00 10/26/20 12:56 133 10/26/20 12:30 Mechanical Ventilator 100.00 10/26/20 12:15 Mechanical Ventilator 80.00 10/26/20 12:00 38.1 156 17 96 Mechanical Ventilator 100.00 10/26/20 11:37 161 32 100 100 10/26/20 11:35 141 33 124/66 10/26/20 11:00 38.4 140 16 98 Mechanical Ventilator 100.00 10/26/20 10:00 39.0 152 20 92 Mechanical Ventilator 100.00 10/26/20 09:59 141 124/66 10/26/20 09:50 38.5 10/26/20 09:20 39.0 10/26/20 09:00 38.7 133 22 88 Mechanical Ventilator 100.00 10/26/20 08:45 Mechanical Ventilator 100.00 10/26/20 08:19 141 33 89 55 10/26/20 08:00 94 Mechanical Ventilator 55 10/26/20 08:00 38.6 146 28 92 Mechanical Ventilator 40.00 10/26/20 07:00 38.6 142 28 93 Mechanical Ventilator 40.00 10/26/20 06:45 137 10/26/20 06:00 38.4 140 26 93 Mechanical Ventilator 40.00 10/26/20 05:00 38.7 138 25 93 Mechanical Ventilator 40.00 I & O 10/27/20 07:00 Intake Total 3948 ml Output Total 1305 ml Balance 2643 ml Height & Weight Height: 5'4.00" Weight: 281lbs. 0.0oz. 127.571462ec; 74.00 BMI Method:Stated General Appearance: WD/WN, Chronically ill, Obese, Other (sedated on vent) HEENT: PERRL/EOMI, TMs Normal Neck: Full Range of Motion, Normal Inspection Respiratory: No Accessory Muscle Use, No Respiratory Distress, Decreased Breath Sounds Cardiovascular: No Gallop, No JVD, No Murmur, Normal Peripheral Pulses Capillary Refill: Less Than 3 Seconds Extremity: Normal Capillary Refill, Normal Inspection Neurologic/Psychiatric: Disoriented Skin: Normal Color, Warm/Dry Lymphatic: No Adenopathy Results Lab Laboratory Tests 10/26/20 04:29 10/26/20 18:32 10/27/20 02:42 Assessment/Plan Assessment/Plan Acute respiratory failure with ARDS secondary to COVID -Currently on Vent -Decrease VT to 400 -Currently on Propofol and precedex -Hold for sedation vacation. -Will switch to fentanyl and Versed secondary to high triglycerides -PEEP to 14 -Currently Fi02 55% -Prone pt x 16hrs -Remdesivir, CVP -Decadron PNA with s. aureus -Pt is still running a fever. Will add Merrem (multiple allergies) -Start Vanco and await cultures Afib RVR -Eliquis -Cardiology Decrease phos -Replace Morbid obesity EDWIN REIS DO Oct 27, 2020 04:49
[2020-10-27] MEDS: inSUlin ASPART (NovoLOG) 1 UNIT/0.01 ML (CHARGE PER UNIT) SC SCH ×4 (05:00→23:33)
[2020-10-27] MEDS: MEROPENEM 500 MG in WATER (STERILE) FOR INJECTION 10 ML IV SCH ×4 (05:32→22:02)
[2020-10-27] MEDS: meTOprolol 5 MG/5 ML (LOPRESSOR) VIAL IV SCH ×6 (05:32→23:32)
[2020-10-27] MEDS: MIDAZOLAM DRIP PRE-MIX 100 ML IV SCH ×3 (05:49→23:33)
[2020-10-27 06:37] VITALS: BP 104/61
--- NOTE | 2020-10-27 09:14 | Diagnostic Imaging Report ---
INDICATION: Intubation. TECHNIQUE: Single view chest 7:47 AM. CORRELATION STUDY: 10/26/2020 FINDINGS: Endotracheal tube, gastric tube and left-sided central line all remain in place. Heart size and mediastinum are grossly stable given difference in position. Extensive bilateral pulmonary infiltrates are again demonstrated right greater than left. Overall appearing increased and more consolidated from prior. IMPRESSION: 1. Stable support lines and tubes. 2. Bilateral pulmonary infiltrates persisting overall appearing slightly more prominent right greater than left. Dictated by: Dictated on workstation # [id number]
[2020-10-27] MEDS: VANCOMYCIN 1,750 MG/NS 500 ML IVPB IV SCH ×4 (09:58→19:45)
[2020-10-27] MEDS: PANTOPRAZOLE 40 MG (PROTONIX) VIAL IV SCH (09:58)
[2020-10-27] MEDS: ASPIRIN 81 MG CHEW (CHILDREN'S ASA) PO SCH (09:59)
[2020-10-27] MEDS: APIXABAN 5 MG (ELIQUIS) TABLET PO SCH ×2 (09:59→19:45)
[2020-10-27] MEDS: MICONAZOLE 2% POWDER (DESENEX AF) 90 GM TOP SCH ×2 (10:00→20:57)
--- NOTE | 2020-10-27 10:07 | Progress Note - Cardiology ---
Cardiology SOAP Progress Note Subjective: Intubated and sedated Objective: I&O/Vital Signs 10/27/20 10/27/20 10/27/20 10/27/20 22:00 22:14 23:00 23:33 Temp 37.2 37.1 Pulse 98 96 100 Resp 27 28 28 B/P (MAP) 97/56 89/58 93/60 Pulse Ox 96 96 95 O2 Delivery Mechanical Ventilator Mechanical Ventilator O2 Flow Rate 45.00 45.00 FiO2 45 10/28/20 10/28/20 10/28/20 10/28/20 00:00 01:00 01:00 02:00 Temp 37.1 37.0 37.0 Pulse 91 90 101 101 Resp 27 27 28 B/P (MAP) 98/60 95/60 98/59 Pulse Ox 95 95 95 O2 Delivery Mechanical Ventilator Mechanical Ventilator Mechanical Ventilator O2 Flow Rate 45.00 45.00 45.00 10/28/20 10/28/20 10/28/20 10/28/20 03:00 04:00 05:00 06:00 Temp 37.0 37.0 38.3 38.1 Pulse 92 98 93 81 Resp 28 27 28 30 B/P (MAP) 103/61 101/61 108/62 96/60 Pulse Ox 95 95 96 92 O2 Delivery Mechanical Ventilator Mechanical Ventilator Mechanical Ventilator Mechanical Ventilator O2 Flow Rate 45.00 45.00 45.00 45.00 10/28/20 10/28/20 10/28/20 06:52 07:56 08:22 Pulse 89 89 Resp 28 B/P (MAP) 110/62 Pulse Ox 90 O2 Delivery Mechanical Ventilator O2 Flow Rate 70.00 FiO2 65 10/28/20 00:00 Intake Total 1028 ml Output Total 720 ml Balance 308 ml Weight (Pounds): 281 Weight (Ounces): 0.0 Weight (Calculated Kilograms): 127.007220 Constitutional: other (intubated and sedated) Results/Procedures: Labs Laboratory Tests 10/27/20 11:30: Glucometer 178H 10/27/20 18:06: Glucometer 202H 10/27/20 18:40: Vancomycin Level Trough 12.7 10/27/20 23:29: Glucometer 188H 10/28/20 03:00: 10/28/20 03:10: White Blood Count 7.2, Red Blood Count 2.41L, Hemoglobin 9.0L, Hematocrit 25L, Mean Corpuscular Volume 103H, Mean Corpuscular Hemoglobin 37H, Mean Corpuscular Hemoglobin Concent 36, Red Cell Distribution Width 14.4, Platelet Count 249, Mean Platelet Volume 11.0, Immature Granulocyte % (Auto) 6, Neutrophils (%) (Auto) 76H, Lymphocytes (%) (Auto) 13, Monocytes (%) (Auto) 5, Eosinophils (%) (Auto) 0, Basophils (%) (Auto) 0, Neutrophils # (Auto) 5.4, Lymphocytes # (Auto) 0.9L, Monocytes # (Auto) 0.4, Eosinophils # (Auto) 0.0, Basophils # (Auto) 0.0, Immature Granulocyte # (Auto) 0.4H, Sodium Level 144, Potassium Level 4.5, Chloride Level 116H, Carbon Dioxide Level 18L, Anion Gap 10, Blood Urea Nitrogen 34H, Creatinine 0.69, Estimat Glomerular Filtration Rate > 60, BUN/Creatinine Ratio 49, Glucose Level 193H, Calcium Level 7.6L, Phosphorus Level 2.0L, Magnesium Level 2.8H, Triglycerides Level 130 Microbiology 10/26/20 Blood Culture - Preliminary, Resulted Staphylococcus aureus 10/25/20 Gram Stain - Final, Resulted 10/25/20 Sputum Culture - Preliminary, Resulted Usual upper respiratory yissel Staphylococcus aureus Haemophilus influenza 10/25/20 Urine Culture - Final, Complete NO GROWTH A/P: Assessment: Acute respiratory failure due to COVID-19 pneumonia, ventilator dependent Hypotension likely secondary to sepsis, requiring Levophed Anemia and leucopenia Atrial fibrillation with rapid ventricular response - rate not well controlled [id number] score of 4, yearly risk of stroke without oral anticoagulation is 4.2 percent. Continue on oral anticoagulation with Eliquis Diabetes mellitus, followed and managed by primary care physician Bronchial asthma/COPD Obesity. Questionable sleep apnea. Plan: Resp failure, COVID (+) - management per pulmonary services Hypotension improved - Levophed off A-fib with RVR - rate improved - continue IV Cardizem - titrate as tolerated Continue IV BB as tolerated Replace electrolytes as indicated Monitor lab closely BABAK SILVA Oct 27, 2020 10:07
[2020-10-27] MEDS ORDERED: ROCURONIUM 50 MG/5 ML (ZEMURON) VIAL IV ONE (10:35)
--- NOTE | 2020-10-27 10:36 | Pulmonary Progress Note ---
Standard Progress Note Progress Notes Date Seen by Provider: Oct 27, 2020 Time Seen by Provider: 10:31 Called to bedside secondary to pt acutely saturating after supining. Discussed CXR with Dr. Owen. Pt has increased pulmonary infiltrates. No PTX. Discussed plan of care extensively with RN. Assessment & Plan Acute respiratory failure with ARDS secondary to COVID -Currently on Vent -Currently on Versed and Fentanyl -Will increase VT to 450 and PEEP to 20. -Continue to monitor -Restart Nimbex. -PEEP to 18 currently -- increase to 20 -Currently Fi02 now at 100% -Prone pt x 16hrs -Remdesivir, CVP -Decadron PNA with s. aureus -Pt is still running a fever. Will add Merrem (multiple allergies) -Start Vanco and await cultures Afib RVR -Eliquis -Cardiology Decrease phos -Replace Morbid obesity Critical Care: Critically Ill Patient Time spent with patient (mins): 60 Focused Exam Lactate Level 10/26/20 06:25: Lactic Acid Level 1.42 EDWIN REIS DO Oct 27, 2020 10:36
[2020-10-27] MEDS ORDERED: CISATRACURIUM 2MG/ML (NIMBEX) 10ML VIAL IV ONE (10:45)
[2020-10-27 10:55] VITALS: BP 113/65
[2020-10-27] MEDS: CISATRACURIUM INJECTION 100 MG in NS (IVPB) 200 ML IV SCH ×4 (11:16→20:56)
[2020-10-27] MEDS ORDERED: MIDAZOLAM 5 MG/5 ML (VERSED) VIAL ONE (14:20)
[2020-10-27] MEDS: FUROSEMIDE 40 MG/4 ML INJ (LASIX) IVP SCH ×2 (14:24→22:02)
[2020-10-27 15:05] VITALS: BP 109/67
--- NOTE | 2020-10-27 17:25 | Progress Note - Cardiology ---
Cardiology SOAP Progress Note Subjective: Intubated and sedated Objective: I&O/Vital Signs 10/27/20 10/27/20 10/27/20 10/27/20 05:49 06:00 06:31 06:37 Temp 38.7 Pulse 115 119 124 Resp 28 28 B/P (MAP) 100/60 103/59 Pulse Ox 96 92 O2 Delivery Mechanical Ventilator O2 Flow Rate 55.00 FiO2 60 10/27/20 10/27/20 10/27/20 10/27/20 06:50 07:45 07:45 09:59 Temp 38.3 O2 Delivery Mechanical Ventilator Mechanical Ventilator O2 Flow Rate 65.00 100.00 FiO2 100 10/27/20 10/27/20 10/27/20 10/27/20 10:55 11:24 12:33 12:50 Temp 38.3 Pulse 128 114 Resp 28 Pulse Ox 86 O2 Flow Rate 90.00 FiO2 100 10/27/20 10/27/20 10/27/20 10/27/20 13:15 14:27 15:05 16:26 Temp 38.2 Pulse 128 120 Resp 28 28 B/P (MAP) 113/65 Pulse Ox 94 O2 Flow Rate 70.00 FiO2 55 10/27/20 00:00 Intake Total 2005 ml Output Total 850 ml Balance 1155 ml Weight (Pounds): 281 Weight (Ounces): 0.0 Weight (Calculated Kilograms): 127.367772 Constitutional: other (intubated and sedated) Results/Procedures: Labs Laboratory Tests 10/26/20 17:51: Glucometer 165H 10/26/20 18:32: Sodium Level 145, Potassium Level 2.8L, Chloride Level 120H, Carbon Dioxide Level 20L, Anion Gap 5, Blood Urea Nitrogen 14, Creatinine 0.45L, Estimat Glomerular Filtration Rate > 60, BUN/Creatinine Ratio 31, Glucose Level 157H, Calcium Level 5.8*L, Corrected Calcium 7.2L, Phosphorus Level 2.0L, Magnesium Level 2.0, Total Bilirubin 1.1H, Aspartate Amino Transf (AST/SGOT) 75H, Alanine Aminotransferase (ALT/SGPT) 49, Alkaline Phosphatase 28L, Total Protein 4.2L, Albumin 2.2L 10/26/20 23:06: Glucometer 140H 10/27/20 02:42: Sodium Level 147H, Potassium Level 4.1, Chloride Level 116H, Carbon Dioxide Level 19L, Anion Gap 12, Blood Urea Nitrogen 19H, Creatinine 0.57L, Estimat Glomerular Filtration Rate > 60, BUN/Creatinine Ratio 33, Glucose Level 142H, Calcium Level 7.7L, Phosphorus Level 2.5, Magnesium Level 2.5H, White Blood Count 4.9, Red Blood Count 2.89L, Hemoglobin 9.9L, Hematocrit 30L, Mean Corpuscular Volume 102H, Mean Corpuscular Hemoglobin 34, Mean Corpuscular Hemoglobin Concent 33, Red Cell Distribution Width 14.1, Platelet Count 258, Mean Platelet Volume 10.2, Immature Granulocyte % (Auto) 2, Neutrophils (%) (Auto) 74, Lymphocytes (%) (Auto) 17, Monocytes (%) (Auto) 6, Eosinophils (%) (Auto) 1, Basophils (%) (Auto) 0, Neutrophils # (Auto) 3.6, Lymphocytes # (Auto) 0.8L, Monocytes # (Auto) 0.3, Eosinophils # (Auto) 0.1, Basophils # (Auto) 0.0, Immature Granulocyte # (Auto) 0.1, Blood Gas Puncture Site LEFT ART LINE, Blood Gas Patient Temperature 39.0, Arterial Blood pH 7.27*L, Arterial Blood Partial Pressure CO2 50H, Arterial Blood Partial Pressure O2 86, Arterial Blood HCO3 22L , Arterial Blood Total CO2 23.2, Arterial Blood Oxygen Saturation 93L, Arterial Blood Base Excess -3.6L, Hilario Test ART LINE, Blood Gas Ventilator Setting YES, Blood Gas Inspired Oxygen 55% 10/27/20 11:30: Glucometer 178H Microbiology 10/26/20 Blood Culture - Preliminary, Resulted Staphylococcus aureus 10/25/20 Gram Stain - Final, Resulted 10/25/20 Sputum Culture - Preliminary, Resulted Usual upper respiratory yissel Staphylococcus aureus Haemophilus influenza 10/25/20 Urine Culture - Final, Complete NO GROWTH A/P: Assessment: Acute respiratory failure due to COVID-19 pneumonia, ventilator dependent Hypotension likely secondary to sepsis, requiring Levophed Anemia and leucopenia Atrial fibrillation with rapid ventricular response - rate not well controlled [id number] score of 4, yearly risk of stroke without oral anticoagulation is 4.2 percent. Continue on oral anticoagulation with Eliquis Diabetes mellitus, followed and managed by primary care physician Bronchial asthma/COPD Obesity. Questionable sleep apnea. Plan: Resp failure, COVID (+) - management per pulmonary services Hypotension improved - Levophed off A-fib with RVR - rate not well controlled - continue IV Cardizem - titrate as tolerated Increase IV BB as tolerated Replace electrolytes as indicated Monitor lab closely WING FRANCO MD FACP [facility] CCDS Oct 27, 2020 17:25
--- NOTE | 2020-10-27 17:28 | NUR ---
Note TF is currently on hold d/t pt being paralyzed. Would recommend restarting TF when medically able and as tolerated. Will continue to follow and reassess as pt needs, intake, and status change. Power Vieyra MS RD LD [phone] cell
[2020-10-27 18:37] VITALS: BP 99/64
[2020-10-27] MEDS ORDERED: TROUGH ORDER-PHARMACY XX NR (19:00)
[2020-10-27 22:14] VITALS: BP 91/60
[2020-10-28] MEDS: NOREPINEPHRINE 4 MG/250 ML 250 ML IV SCH ×5 (00:28→20:15)
[2020-10-28] MEDS: NS IV 1000 ML 1,000 ML IV SCH (00:43)
[2020-10-28] MEDS: CISATRACURIUM INJECTION 100 MG in NS (IVPB) 200 ML IV SCH ×5 (00:43→20:15)
[2020-10-28] MEDS: fentaNYL DRIP PRE-MIX 250 ML IV SCH ×5 (03:10→23:20)
[2020-10-28 03:39] LABS: BASOPHILS % (AUTO) 0 % (0-10); EOSINOPHILS % (AUTO) 0 % (0-10); HEMATOCRIT 25 % (35-52); LYMPHOCYTES # (AUTO) 0.9 10^3/uL (1.0-4.0); LYMPHOCYTES % (AUTO) 13 % (12-44); MEAN CORPUSCULAR HEMOGLOBIN 37 pg (25-34); MEAN CORPUSCULAR HGB CONC 36 g/dL (32-36); MEAN CORPUSCULAR VOLUME 103 fL (80-99); MONOCYTES # (AUTO) 0.4 10^3/uL (0.0-1.0); MONOCYTES % (AUTO) 5 % (0-12); NEUTROPHILS # (AUTO) 5.4 10^3/uL (1.8-7.8); NEUTROPHILS % (AUTO) 76 % (42-75); PLATELET COUNT 249 10^3/uL (130-400); WHITE BLOOD COUNT 7.2 10^3/uL (4.3-11.0)
[2020-10-28 03:46] LABS: CHLORIDE 116 MMOL/L (98-107); POTASSIUM 4.5 MMOL/L (3.6-5.0); SODIUM 144 MMOL/L (135-145)
[2020-10-28 03:48] LABS: CALCIUM 7.6 MG/DL (8.5-10.1); GLUCOSE 193 MG/DL (70-105); TRIGLYCERIDES 130 MG/DL (<150)
[2020-10-28 03:50] LABS: CARBON DIOXIDE 18 MMOL/L (21-32)
[2020-10-28 03:52] LABS: CREATININE SERUM 0.69 MG/DL (0.60-1.30); GFR ESTIMATED > 60
[2020-10-28 03:53] LABS: BUN/CREATININE RATIO 49
[2020-10-28 03:55] LABS: MAGNESIUM 2.8 MG/DL (1.6-2.4)
[2020-10-28] MEDS: meTOprolol 5 MG/5 ML (LOPRESSOR) VIAL IV SCH ×6 (04:25→23:19)
[2020-10-28] MEDS: MEROPENEM 500 MG in WATER (STERILE) FOR INJECTION 10 ML IV SCH ×4 (04:25→23:19)
[2020-10-28] MEDS: dilTIAZem DRIP PRE-MIX 125 ML IV SCH (04:40)
[2020-10-28] MEDS: APAP 325 MG/10.15 ML LIQ (TYLENOL) UDC PO PRN (05:50)
[2020-10-28] MEDS: FUROSEMIDE 40 MG/4 ML INJ (LASIX) IVP SCH (05:50)
[2020-10-28] MEDS: MAGNESIUM 1 GM/100 ML IVPB 100 ML IV SCH (06:00)
[2020-10-28] MEDS: KCL 20 MEQ TAB (K-DUR) PO SCH (06:00)
[2020-10-28] MEDS: POTASSIUM CL 10MEQ/50ML IVPB 50 ML IV SCH (06:00)
[2020-10-28] MEDS: inSUlin ASPART (NovoLOG) 1 UNIT/0.01 ML (CHARGE PER UNIT) SC SCH ×4 (06:45→23:19)
[2020-10-28 06:52] VITALS: BP 92/61
[2020-10-28] MEDS: RT-ALBUTEROL INHALER HFA (VENTOLIN HFA) 18 GM IH SCH ×5 (06:52→21:53)
[2020-10-28] MEDS: MIDAZOLAM DRIP PRE-MIX 100 ML IV SCH ×2 (07:56→18:00)
[2020-10-28] MEDS ORDERED: VANCOMYCIN 2000 MG/NS 500 ML IVPB IV SCH ×2 (08:00)
[2020-10-28] MEDS: ASPIRIN 81 MG CHEW (CHILDREN'S ASA) PO SCH (08:01)
[2020-10-28] MEDS: APIXABAN 5 MG (ELIQUIS) TABLET PO SCH ×2 (08:01→19:39)
[2020-10-28] MEDS: PANTOPRAZOLE 40 MG (PROTONIX) VIAL IV SCH (08:01)
[2020-10-28] MEDS: MICONAZOLE 2% POWDER (DESENEX AF) 90 GM TOP SCH ×2 (08:02→19:39)
--- NOTE | 2020-10-28 09:11 | Progress Note - Cardiology ---
Cardiology SOAP Progress Note Subjective: Intubated and sedated Objective: I&O/Vital Signs 10/28/20 10/28/20 10/28/20 10/28/20 20:00 20:16 21:00 21:53 Temp 38.3 38.3 Pulse 101 105 103 Resp 35 11 28 B/P (MAP) Pulse Ox 95 95 96 96 O2 Delivery Mechanical Ventilator Mechanical Ventilator Mechanical Ventilator O2 Flow Rate 50.00 50.00 FiO2 50 50 10/28/20 10/28/20 10/29/20 10/29/20 22:00 23:00 00:00 01:00 Temp 38.3 38.3 38.2 38.3 Pulse 107 112 104 120 Resp 20 16 27 18 B/P (MAP) Pulse Ox 96 96 96 97 O2 Delivery Mechanical Ventilator Mechanical Ventilator Mechanical Ventilator Mechanical Ventilator O2 Flow Rate 50.00 50.00 50.00 50.00 10/29/20 10/29/20 10/29/20 10/29/20 01:00 02:00 03:00 03:24 Temp 38.2 38.3 Pulse 108 128 112 116 Resp 16 28 28 B/P (MAP) Pulse Ox 97 96 97 O2 Delivery Mechanical Ventilator Mechanical Ventilator O2 Flow Rate 50.00 50.00 FiO2 50 10/29/20 10/29/20 10/29/20 10/29/20 03:41 04:00 05:00 06:00 Temp 38.4 38.4 38.5 Pulse 105 110 122 Resp 27 28 28 B/P (MAP) 119/68 Pulse Ox 94 94 94 O2 Delivery Mechanical Ventilator Mechanical Ventilator Mechanical Ventilator O2 Flow Rate 50.00 50.00 50.00 10/29/20 00:00 Intake Total 110 ml Output Total 950 ml Balance -840 ml Weight (Pounds): 281 Weight (Ounces): 0.0 Weight (Calculated Kilograms): 127.655103 Constitutional: other (intubated and sedated) Results/Procedures: Labs Laboratory Tests 10/28/20 11:47: Glucometer 224H 10/28/20 14:30: Blood Gas Puncture Site L RAD, Blood Gas Patient Temperature 38.2, Arterial Blood pH 7.30*L, Arterial Blood Partial Pressure CO2 42, Arterial Blood Partial Pressure O2 136H, Arterial Blood HCO3 20L, Arterial Blood Total CO2 20.9L, Arterial Blood Oxygen Saturation 99, Arterial Blood Base Excess -5.5L, Hilario Test YES-POS, Blood Gas Ventilator Setting YES, Blood Gas Inspired Oxygen 70% 10/28/20 17:17: Glucometer 247H 10/28/20 23:03: Glucometer 240H 10/29/20 03:35: White Blood Count 7.9, Red Blood Count 2.44L, Hemoglobin 9.0L, Hematocrit 25L, Mean Corpuscular Volume 104H, Mean Corpuscular Hemoglobin 37H, Mean Corpuscular Hemoglobin Concent 35, Red Cell Distribution Width 14.4, Platelet Count 303, Mean Platelet Volume 10.9, Immature Granulocyte % (Auto) 11, Neutrophils (%) (Auto) 70, Lymphocytes (%) (Auto) 15, Monocytes (%) (Auto) 4, Eosinophils (%) (Auto) 0, Basophils (%) (Auto) 0, Neutrophils # (Auto) 5.5, Lymphocytes # (Auto) 1.2, Monocytes # (Auto) 0.4, Eosinophils # (Auto) 0.0, Basophils # (Auto) 0.0, Immature Granulocyte # (Auto) 0.9H, Blood Gas Puncture Site LFT ARTLINE, Blood Gas Patient Temperature 38.4, Arterial Blood pH 7.38, Arterial Blood Partial Pressure CO2 38, Arterial Blood Partial Pressure O2 100H, Arterial Blood HCO3 21L, Arterial Blood Total CO2 22.1, Arterial Blood Oxygen Saturation 97, Arterial Blood Base Excess -3.0L, Hilario Test ARTLINE, Blood Gas Ventilator Setting YES, Blood Gas Inspired Oxygen 40%, Sodium Level 147H, Potassium Level 4.8, Chloride Level 118H, Carbon Dioxide Level 19L, Anion Gap 10, Blood Urea Nitrogen 37H, Creatinine 0.69, Estimat Glomerular Filtration Rate > 60, BUN/Creatinine Ratio 54, Glucose Level 285H, Calcium Level 7.5L, Phosphorus Level 1.7L, Magnesium Level 3.0H, B-Type Natriuretic Peptide 90.2, Procalcitonin 1.10H Microbiology 10/26/20 Blood Culture - Preliminary, Resulted Staphylococcus aureus 10/25/20 Gram Stain - Final, Complete 10/25/20 Sputum Culture - Final, Complete Usual upper respiratory yissel Staphylococcus aureus Haemophilus influenza 10/25/20 Urine Culture - Final, Complete NO GROWTH A/P: Assessment: Acute respiratory failure due to COVID-19 pneumonia, ventilator dependent Hypotension likely secondary to sepsis, requiring Levophed Anemia and leucopenia Atrial fibrillation with rapid ventricular response - rate not well controlled [id number] score of 4, yearly risk of stroke without oral anticoagulation is 4.2 percent. Continue on oral anticoagulation with Eliquis Diabetes mellitus, followed and managed by primary care physician Bronchial asthma/COPD Obesity. Questionable sleep apnea. Plan: Resp failure, COVID (+) - management per pulmonary services A-fib with RVR - rate improved - continue IV Cardizem - titrate as tolerated Continue IV BB as tolerated Replace electrolytes as indicated Monitor lab closely BABAK SILVA Oct 28, 2020 09:11
[2020-10-28 10:19] VITALS: BP 109/64
--- NOTE | 2020-10-28 10:53 | Diagnostic Imaging Report ---
EXAMINATION: Portable erect AP chest at 1027 hours. INDICATION: Shortness of breath. As on the prior exam of 10/27/2020 the patient is rotated. The right upper lung does seem better aerated than on the prior exam. There is still considerable residual pneumonia/atelectasis present in the right upper lung and in the right perihilar region. The mild atelectasis/infiltrate in the left lung seen previously is still evident although not as conspicuous as on the prior exam. The heart is stable in size. The mediastinum is not widened. The osseous structures are intact. The supportive tubes and lines seen previously appear similar in position. IMPRESSION: The appearance of the chest has improved somewhat since the prior exam as both the right upper lung and the left lung do seem better aerated. There is still considerable involvement of the right lung by pneumonia/atelectasis however. A follow-up study would be recommended for continued evaluation. Dictated by: Dictated on workstation # [id number]
--- NOTE | 2020-10-28 11:48 | Pulmonary Progress Note ---
Subjective Time Seen by a Provider: 11:43 Subjective/Events-last exam Pt is sedated on vent. Sepsis Event Evaluation Height, Weight, BMI Height: 5'4.00" Weight: 281lbs. 0.0oz. 127.668112um; 74.00 BMI Method:Stated Focused Exam Lactate Level 10/26/20 06:25: Lactic Acid Level 1.42 Exam Exam Vital Signs Date Time Temp Pulse Resp B/P (MAP) Pulse Ox O2 Delivery O2 Flow Rate FiO2 10/28/20 10:19 110 28 88 70 10/28/20 08:22 Mechanical Ventilator 70.00 10/28/20 08:00 91 Mechanical Ventilator 50 10/28/20 07:56 89 28 110/62 10/28/20 06:52 89 28 90 65 10/28/20 06:00 38.1 81 30 96/60 92 Mechanical Ventilator 45.00 10/28/20 05:00 38.3 93 28 108/62 96 Mechanical Ventilator 45.00 10/28/20 04:00 37.0 98 27 101/61 95 Mechanical Ventilator 45.00 10/28/20 03:00 37.0 92 28 103/61 95 Mechanical Ventilator 45.00 10/28/20 02:00 37.0 101 28 98/59 95 Mechanical Ventilator 45.00 10/28/20 01:00 101 10/28/20 01:00 37.0 90 27 95/60 95 Mechanical Ventilator 45.00 10/28/20 00:00 37.1 91 27 98/60 95 Mechanical Ventilator 45.00 10/27/20 23:33 93/60 10/27/20 23:00 37.1 100 28 89/58 95 Mechanical Ventilator 45.00 10/27/20 22:14 96 28 96 45 10/27/20 22:00 37.2 98 27 97/56 96 Mechanical Ventilator 45.00 10/27/20 21:00 37.3 92 27 94/60 96 Mechanical Ventilator 45.00 10/27/20 20:28 Mechanical Ventilator 45 10/27/20 20:00 37.5 86 27 93/57 96 Mechanical Ventilator 45.00 10/27/20 20:00 37.5 76 28 96 Mechanical Ventilator 45.00 10/27/20 19:00 106 10/27/20 19:00 37.7 98 28 99/61 95 Mechanical Ventilator 45.00 10/27/20 18:37 121 28 95 45 10/27/20 18:00 37.8 100 28 95/60 97 Mechanical Ventilator 55.00 10/27/20 17:00 37.8 102 28 94/60 96 Mechanical Ventilator 55.00 10/27/20 16:26 38.2 10/27/20 16:00 37.9 114 27 106/66 96 Mechanical Ventilator 55.00 10/27/20 15:12 Mechanical Ventilator 55.00 10/27/20 15:05 120 28 94 55 10/27/20 15:00 38.1 110 80 108/66 97 Mechanical Ventilator 70.00 10/27/20 14:27 128 28 113/65 10/27/20 14:00 38.1 101 43 108/65 97 Mechanical Ventilator 70.00 10/27/20 13:15 70.00 10/27/20 13:00 38.3 116 37 104/63 96 Mechanical Ventilator 90.00 10/27/20 12:50 90.00 10/27/20 12:33 114 10/27/20 12:00 38.4 135 19 107/66 98 Mechanical Ventilator 100.00 I & O 10/28/20 07:00 Intake Total 1288 ml Output Total 1295 ml Balance -7 ml Height & Weight Height: 5'4.00" Weight: 281lbs. 0.0oz. 127.934775uo; 74.00 BMI Method:Stated General Appearance: WD/WN, Chronically ill, Obese, Other (sedated on vent) HEENT: PERRL/EOMI, TMs Normal Neck: Full Range of Motion, Normal Inspection Respiratory: No Accessory Muscle Use, No Respiratory Distress, Decreased Breath Sounds Cardiovascular: No Gallop, No JVD, No Murmur, Normal Peripheral Pulses Capillary Refill: Less Than 3 Seconds Extremity: Normal Capillary Refill, Normal Inspection Neurologic/Psychiatric: Disoriented Skin: Normal Color, Warm/Dry Lymphatic: No Adenopathy Results Lab Laboratory Tests 10/26/20 18:32 10/27/20 02:42 10/28/20 03:10 Assessment/Plan Assessment/Plan Acute respiratory failure with ARDS secondary to COVID -Currently on Vent -Decrease VT to 400 -Currently on Propofol and precedex -Hold for sedation vacation. -Will switch to fentanyl and Versed secondary to high triglycerides -Hold Nimbex -Prone pt x 16hrs -Remdesivir, CVP -Decadron PNA with s. aureus - Merrem (multiple allergies) Vanco and await cultures Afib RVR -Eliquis -Cardiology Decrease phos -Replace Morbid obesity EDWIN REIS DO Oct 28, 2020 11:48
[2020-10-28 14:42] VITALS: BP 108/62
[2020-10-28 15:01] LABS: ABG BASE EXCESS -5.5 MMOL/L (-2.5-2.5); ABG OXYGEN SATURATION 99 % (94-100); ABG PCO2 42 MMHG (35-45); ABG PO2 136 MMHG (79-93); ABG TCO2 20.9 MMOL/L (21.0-31.0); ALLENS TEST YES-POS; INSPIRED O2 70%
[2020-10-28 15:02] LABS: PATIENT TEMP 38.2; VENTILATOR YES
--- NOTE | 2020-10-28 15:39 | NUR ---
During care rounds, it was noted that TF was restarted at 15ml/hr with 25ml free water flushes q4h. Would recommend maintain current rate at this time. Will continue to follow and reassess as pt needs, intake, and status change. Power Vieyra, MS RD LD [phone] cell
--- NOTE | 2020-10-28 18:11 | Progress Note - Cardiology ---
Cardiology SOAP Progress Note Subjective: Intubated and sedated Objective: I&O/Vital Signs 10/28/20 10/28/20 10/28/20 10/28/20 06:27 06:52 07:00 07:56 Temp 38.2 Pulse 94 89 96 89 Resp 28 28 28 B/P (MAP) 103/63 110/62 Pulse Ox 90 90 O2 Delivery Mechanical Ventilator O2 Flow Rate 45.00 FiO2 65 10/28/20 10/28/20 10/28/20 10/28/20 08:00 08:00 08:22 09:00 Temp 38.3 38.3 Pulse 112 87 Resp 28 22 B/P (MAP) 105/66 87/63 Pulse Ox 91 91 91 O2 Delivery Mechanical Ventilator Mechanical Ventilator Mechanical Ventilator Mechanical Ventilator O2 Flow Rate 45.00 70.00 70.00 FiO2 50 10/28/20 10/28/20 10/28/20 10/28/20 10:00 10:19 11:00 12:00 Temp 38.4 38.5 38.4 Pulse 89 110 140 124 Resp 42 28 42 B/P (MAP) 105/66 105/61 110/62 Pulse Ox 89 88 94 96 O2 Delivery Mechanical Ventilator Mechanical Ventilator Mechanical Ventilator O2 Flow Rate 70.00 70.00 70.00 FiO2 70 10/28/20 10/28/20 10/28/20 10/28/20 12:36 13:00 14:00 14:42 Temp 38.3 38.2 Pulse 121 93 100 90 Resp 28 13 28 B/P (MAP) 101/61 104/62 Pulse Ox 97 98 98 O2 Delivery Mechanical Ventilator Mechanical Ventilator O2 Flow Rate 70.00 70.00 FiO2 70 10/28/20 10/28/20 10/28/20 10/28/20 15:00 16:00 16:29 18:00 Temp 38.1 38.2 Pulse 108 94 103 Resp 27 51 28 B/P (MAP) 106/60 101/60 114/64 Pulse Ox 98 97 O2 Delivery Mechanical Ventilator Mechanical Ventilator Mechanical Ventilator O2 Flow Rate 70.00 70.00 50.00 10/28/20 00:00 Intake Total 1028 ml Output Total 720 ml Balance 308 ml Weight (Pounds): 281 Weight (Ounces): 0.0 Weight (Calculated Kilograms): 127.519413 Constitutional: other (intubated and sedated) Results/Procedures: Labs Laboratory Tests 10/27/20 18:40: Vancomycin Level Trough 12.7 10/27/20 23:29: Glucometer 188H 10/28/20 03:00: 10/28/20 03:10: White Blood Count 7.2, Red Blood Count 2.41L, Hemoglobin 9.0L, Hematocrit 25L, Mean Corpuscular Volume 103H, Mean Corpuscular Hemoglobin 37H, Mean Corpuscular Hemoglobin Concent 36, Red Cell Distribution Width 14.4, Platelet Count 249, Mean Platelet Volume 11.0, Immature Granulocyte % (Auto) 6, Neutrophils (%) (Auto) 76H, Lymphocytes (%) (Auto) 13, Monocytes (%) (Auto) 5, Eosinophils (%) (Auto) 0, Basophils (%) (Auto) 0, Neutrophils # (Auto) 5.4, Lymphocytes # (Auto) 0.9L, Monocytes # (Auto) 0.4, Eosinophils # (Auto) 0.0, Basophils # (Auto) 0.0, Immature Granulocyte # (Auto) 0.4H, Sodium Level 144, Potassium Level 4.5, Chloride Level 116H, Carbon Dioxide Level 18L, Anion Gap 10, Blood Urea Nitrogen 34H, Creatinine 0.69, Estimat Glomerular Filtration Rate > 60, BUN/Creatinine Ratio 49, Glucose Level 193H, Calcium Level 7.6L, Phosphorus Level 2.0L, Magnesium Level 2.8H, Triglycerides Level 130 10/28/20 11:47: Glucometer 224H 10/28/20 14:30: Blood Gas Puncture Site L RAD, Blood Gas Patient Temperature 38.2, Arterial Blood pH 7.30*L, Arterial Blood Partial Pressure CO2 42, Arterial Blood Partial Pressure O2 136H, Arterial Blood HCO3 20L, Arterial Blood Total CO2 20.9L, Arterial Blood Oxygen Saturation 99, Arterial Blood Base Excess -5.5L, Hilario Te st YES-POS, Blood Gas Ventilator Setting YES, Blood Gas Inspired Oxygen 70% 10/28/20 17:17: Glucometer 247H Microbiology 10/26/20 Blood Culture - Preliminary, Resulted Staphylococcus aureus 10/25/20 Gram Stain - Final, Complete 10/25/20 Sputum Culture - Final, Complete Usual upper respiratory yissel Staphylococcus aureus Haemophilus influenza 10/25/20 Urine Culture - Final, Complete NO GROWTH Procedures Laboratory Tests 10/26/20 18:32 10/27/20 02:42 10/28/20 03:10 A/P: Assessment: Acute respiratory failure due to COVID-19 pneumonia, ventilator dependent Hypotension likely secondary to sepsis, requiring Levophed Anemia and leucopenia Atrial fibrillation with rapid ventricular response - rate not well controlled [id number] score of 4, yearly risk of stroke without oral anticoagulation is 4.2 percent. Continue on oral anticoagulation with Eliquis Diabetes mellitus, followed and managed by primary care physician Bronchial asthma/COPD Obesity. Questionable sleep apnea. Plan: Resp failure, COVID (+) - management per pulmonary services A-fib with RVR - rate improved - continue IV Cardizem - titrate as tolerated Continue IV BB as tolerated Replace electrolytes as indicated Monitor lab closely WING FRANCO MD FACP [facility]S Oct 28, 2020 18:11
[2020-10-28 18:47] VITALS: BP 100/61
[2020-10-28 21:53] VITALS: BP 102/66
[2020-10-29] MEDS: NOREPINEPHRINE 4 MG/250 ML 250 ML IV SCH ×2 (00:56→04:46)
[2020-10-29] MEDS: CISATRACURIUM INJECTION 100 MG in NS (IVPB) 200 ML IV SCH ×2 (00:56→04:44)
[2020-10-29] MEDS: RT-ALBUTEROL INHALER HFA (VENTOLIN HFA) 18 GM IH SCH ×5 (03:23→23:21)
[2020-10-29 03:24] VITALS: BP 106/67
[2020-10-29] MEDS: meTOprolol 5 MG/5 ML (LOPRESSOR) VIAL IV SCH ×6 (03:41→23:10)
[2020-10-29] MEDS: MIDAZOLAM DRIP PRE-MIX 100 ML IV SCH ×4 (03:41→19:26)
[2020-10-29] MEDS: fentaNYL DRIP PRE-MIX 250 ML IV SCH ×4 (03:41→19:25)
[2020-10-29 03:46] LABS: BASOPHILS % (AUTO) 0 % (0-10); EOSINOPHILS % (AUTO) 0 % (0-10); HEMATOCRIT 25 % (35-52); LYMPHOCYTES # (AUTO) 1.2 10^3/uL (1.0-4.0); LYMPHOCYTES % (AUTO) 15 % (12-44); MEAN CORPUSCULAR HEMOGLOBIN 37 pg (25-34); MEAN CORPUSCULAR HGB CONC 35 g/dL (32-36); MEAN CORPUSCULAR VOLUME 104 fL (80-99); MEAN PLATELET VOLUME 10.9 fL (9.0-12.2); MONOCYTES # (AUTO) 0.4 10^3/uL (0.0-1.0); MONOCYTES % (AUTO) 4 % (0-12); NEUTROPHILS # (AUTO) 5.5 10^3/uL (1.8-7.8); NEUTROPHILS % (AUTO) 70 % (42-75); PLATELET COUNT 303 10^3/uL (130-400); WHITE BLOOD COUNT 7.9 10^3/uL (4.3-11.0)
[2020-10-29 03:47] LABS: ABG OXYGEN SATURATION 97 % (94-100); ABG PCO2 38 MMHG (35-45); ABG PH 7.38 (7.37-7.43); ABG PO2 100 MMHG (79-93); ABG TCO2 22.1 MMOL/L (21.0-31.0)
[2020-10-29 03:55] LABS: ALLENS TEST ARTLINE; INSPIRED O2 40%; PATIENT TEMP 38.4; VENTILATOR YES
[2020-10-29 04:09] LABS: CHLORIDE 118 MMOL/L (98-107); POTASSIUM 4.8 MMOL/L (3.6-5.0); SODIUM 147 MMOL/L (135-145)
[2020-10-29 04:10] LABS: CALCIUM 7.5 MG/DL (8.5-10.1)
[2020-10-29 04:11] LABS: GLUCOSE 285 MG/DL (70-105)
[2020-10-29 04:12] LABS: CARBON DIOXIDE 19 MMOL/L (21-32)
[2020-10-29 04:15] LABS: CREATININE SERUM 0.69 MG/DL (0.60-1.30); GFR ESTIMATED > 60; PHOSPHORUS 1.7 MG/DL (2.3-4.7)
[2020-10-29 04:16] LABS: BUN/CREATININE RATIO 54
[2020-10-29] MEDS: KCL 20 MEQ TAB (K-DUR) PO SCH (04:45)
[2020-10-29] MEDS: MAGNESIUM 1 GM/100 ML IVPB 100 ML IV SCH (04:45)
[2020-10-29] MEDS: POTASSIUM CL 10MEQ/50ML IVPB 50 ML IV SCH (04:45)
[2020-10-29] MEDS: NS IV 1000 ML 1,000 ML IV SCH ×2 (04:49→09:07)
--- NOTE | 2020-10-29 05:59 | Pulmonary Progress Note ---
Subjective Time Seen by a Provider: 05:55 Subjective/Events-last exam Pt is sedated on vent. Sepsis Event Evaluation Height, Weight, BMI Height: 5'4.00" Weight: 281lbs. 0.0oz. 127.959354dj; 74.00 BMI Method:Stated Focused Exam Lactate Level 10/26/20 06:25: Lactic Acid Level 1.42 Exam Exam Vital Signs Date Time Temp Pulse Resp B/P (MAP) Pulse Ox O2 Delivery O2 Flow Rate FiO2 10/29/20 04:00 38.4 105 27 94 Mechanical Ventilator 50.00 10/29/20 03:41 119/68 10/29/20 03:24 116 28 97 50 10/29/20 03:00 38.3 112 28 96 Mechanical Ventilator 50.00 10/29/20 02:00 38.2 128 16 97 Mechanical Ventilator 50.00 10/29/20 01:00 108 10/29/20 01:00 38.3 120 18 97 Mechanical Ventilator 50.00 10/29/20 00:00 38.2 104 27 96 Mechanical Ventilator 50.00 10/28/20 23:00 38.3 112 16 96 Mechanical Ventilator 50.00 10/28/20 22:00 38.3 107 20 96 Mechanical Ventilator 50.00 10/28/20 21:53 103 28 96 50 10/28/20 21:00 38.3 105 11 96 Mechanical Ventilator 50.00 10/28/20 20:16 95 Mechanical Ventilator 50 10/28/20 20:00 38.3 101 35 95 Mechanical Ventilator 50.00 10/28/20 19:39 38.3 96 28 94 Mechanical Ventilator 50.00 10/28/20 19:00 38.3 121 36 111/64 93 Mechanical Ventilator 50.00 10/28/20 19:00 81 10/28/20 18:47 103 28 93 50 10/28/20 18:00 38.1 113 21 106/63 96 Mechanical Ventilator 50.00 10/28/20 18:00 103 28 114/64 10/28/20 17:00 38.1 105 29 100/60 95 Mechanical Ventilator 50.00 10/28/20 16:29 Mechanical Ventilator 50.00 10/28/20 16:00 38.2 94 51 101/60 97 Mechanical Ventilator 70.00 10/28/20 15:00 38.1 108 27 106/60 98 Mechanical Ventilator 70.00 10/28/20 14:42 90 28 98 70 10/28/20 14:00 38.2 100 13 104/62 98 Mechanical Ventilator 70.00 10/28/20 13:00 38.3 93 28 101/61 97 Mechanical Ventilator 70.00 10/28/20 12:36 121 10/28/20 12:00 38.4 124 110/62 96 Mechanical Ventilator 70.00 10/28/20 11:00 38.5 140 42 105/61 94 Mechanical Ventilator 70.00 10/28/20 10:19 110 28 88 70 10/28/20 10:00 38.4 89 42 105/66 89 Mechanical Ventilator 70.00 10/28/20 09:00 38.3 87 22 87/63 91 Mechanical Ventilator 70.00 10/28/20 08:22 Mechanical Ventilator 70.00 10/28/20 08:00 91 Mechanical Ventilator 50 10/28/20 08:00 38.3 112 28 105/66 91 Mechanical Ventilator 45.00 10/28/20 07:56 89 28 110/62 10/28/20 07:00 38.2 96 28 103/63 90 Mechanical Ventilator 45.00 10/28/20 06:52 89 28 90 65 10/28/20 06:27 94 10/28/20 06:00 38.1 81 30 96/60 92 Mechanical Ventilator 45.00 I & O 10/29/20 06:59 Intake Total 920 ml Output Total 1800 ml Balance -880 ml Height & Weight Height: 5'4.00" Weight: 281lbs. 0.0oz. 127.897057ey; 74.00 BMI Method:Stated General Appearance: WD/WN, Chronically ill, Obese, Other (sedated on vent) HEENT: PERRL/EOMI, TMs Normal Neck: Full Range of Motion, Normal Inspection Respiratory: No Accessory Muscle Use, No Respiratory Distress, Decreased Breath Sounds Cardiovascular: No Gallop, No JVD, No Murmur, Normal Peripheral Pulses Capillary Refill: Less Than 3 Seconds Extremity: Normal Capillary Refill, Normal Inspection Neurologic/Psychiatric: Disoriented Skin: Normal Color, Warm/Dry Lymphatic: No Adenopathy Results Lab Laboratory Tests 10/28/20 03:10 10/29/20 03:35 Assessment/Plan Assessment/Plan Acute respiratory failure with ARDS secondary to COVID -Currently on Vent -Decrease VT to 400 -Currently on Propofol and precedex -Hold for sedation vacation. -Will switch to fentanyl and Versed secondary to high triglycerides - Nimbex is off -Continue TF per dietary recs -Prone pt x 16hrs -Remdesivir, CVP -Decadron -Repeat BNP, and PCT PNA with s. aureus - Merrem (multiple allergies) -Vanco d/c'd 10/28 bacteremia with MSSA -D/C arterial line and culture tip -Continue Merrem -Repeat BC from 10/28 still pending -MRSA nasal swab is negative. Hypernatremia -Change IVF to 1/2 NS Anemia -Monitor Afib RVR -Eliquis -Cardiology Decrease phos -Replace Morbid obesity GI/DVT ppx -Eliquis - Protonix EDWIN REIS DO Oct 29, 2020 05:59
[2020-10-29] MEDS: inSUlin ASPART (NovoLOG) 1 UNIT/0.01 ML (CHARGE PER UNIT) SC SCH ×4 (07:06→23:09)
[2020-10-29] MEDS: MEROPENEM 500 MG in WATER (STERILE) FOR INJECTION 10 ML IV SCH ×4 (07:06→23:09)
--- NOTE | 2020-10-29 08:40 | Progress Note - Cardiology ---
Cardiology SOAP Progress Note Subjective: Intubated and sedated Objective: I&O/Vital Signs 11/01/20 11/02/20 11/02/20 11/02/20 23:00 00:00 01:00 01:00 Temp 36.8 36.8 36.6 Pulse 92 112 115 85 Resp 28 27 27 B/P (MAP) 111/73 101/74 109/80 Pulse Ox 96 97 96 O2 Delivery Mechanical Ventilator Mechanical Ventilator Mechanical Ventilator O2 Flow Rate 45.00 45.00 45.00 11/02/20 11/02/20 11/02/20 11/02/20 01:45 02:00 03:00 04:00 Temp 36.6 36.6 36.9 Pulse 101 82 111 147 Resp 28 27 28 8 B/P (MAP) 107/65 94/78 115/102 Pulse Ox 98 93 92 91 O2 Delivery Mechanical Ventilator Mechanical Ventilator Mechanical Ventilator O2 Flow Rate 45.00 45.00 45.00 FiO2 35 11/02/20 11/02/20 11/02/20 11/02/20 04:48 05:00 06:00 06:07 Temp 36.6 36.9 Pulse 110 104 118 Resp 26 26 B/P (MAP) 105/78 100/74 Pulse Ox 98 96 96 O2 Delivery Mechanical Ventilator Mechanical Ventilator Mechanical Ventilator O2 Flow Rate 50.00 45.00 45.00 FiO2 40 11/02/20 11/02/20 08:29 09:37 Pulse Ox 92 88 O2 Delivery Mechanical Ventilator O2 Flow Rate 50.00 FiO2 40 11/02/20 00:00 Intake Total 330 ml Output Total 1025 ml Balance -695 ml Weight (Pounds): 281 Weight (Ounces): 0.0 Weight (Calculated Kilograms): 127.159590 Constitutional: other (intubated and sedated) Results/Procedures: Labs Laboratory Tests 11/01/20 15:43: Glucometer 327H 11/01/20 20:24: Glucometer 276H 11/02/20 02:15: White Blood Count 7.7, Red Blood Count 3.08L, Hemoglobin 9.9L, Hematocrit 32L, Mean Corpuscular Volume 103H, Mean Corpuscular Hemoglobin 32, Mean Corpuscular Hemoglobin Concent 31L, Red Cell Distribution Width 14.2, Platelet Count 309, Mean Platelet Volume 11.1, Immature Granulocyte % (Auto) 3, Neutrophils (%) (Auto) 76H, Lymphocytes (%) (Auto) 17, Monocytes (%) (Auto) 3, Eosinophils (%) (Auto) 1, Basophils (%) (Auto) 0, Neutrophils # (Auto) 5.9, Lymphocytes # (Auto) 1.3, Monocytes # (Auto) 0.2, Eosinophils # (Auto) 0.1, Basophils # (Auto) 0.0, Immature Granulocyte # (Auto) 0.2H, Sodium Level 146H, Potassium Level 4.1, Chloride Level 113H, Carbon Dioxide Level 23, Anion Gap 10, Blood Urea Nitrogen 24H, Creatinine 0.55L, Estimat Glomerular Filtration Rate > 60, BUN/Creatinine Ratio 44, Glucose Level 278H, Calcium Level 7.3L, Phosphorus Level 2.7, Magnesium Level 2.4 11/02/20 02:30: Blood Gas Puncture Site LEFT RADIAL, Blood Gas Patient Temperature 36.5, Arterial Blood pH 7.47H, Arterial Blood Partial Pressure CO2 33L, Arterial Blood Partial Pressure O2 84, Arterial Blood HCO3 24, Arterial Blood Total CO2 24.7, Arterial Blood Oxygen Saturation 97, Arterial Blood Base Excess 0.3, Hilario Test YES-POS, Blood Gas Ventilator Setting YES, Blood Gas Inspired Oxygen 30% 11/02/20 06:18: Blood Gas Puncture Site RIGHT RADIAL, Blood Gas Patient Temperature 37.2, Arterial Blood pH 7.43, Arterial Blood Partial Pressure CO2 38, Arterial Blood Partial Pressure O2 83, Arterial Blood HCO3 25, Arterial Blood Total CO2 25.9, Arterial Blood Oxygen Saturation 96, Arterial Blood Base Excess 0.9, Hilario Test YES-POS, Blood Gas Ventilator Setting YES, Blood Gas Inspired Oxygen 40% Microbiology 10/29/20 Catheter Tip Culture - Final, Complete No growth 10/28/20 Blood Culture - Preliminary, Resulted No growth 10/25/20 Gram Stain - Final, Complete 10/25/20 Sputum Culture - Final, Complete Usual upper respiratory yissel Staphylococcus aureus Haemophilus influenza 10/25/20 Urine Culture - Final, Complete NO GROWTH A/P: Assessment: Acute respiratory failure due to COVID-19 pneumonia, ventilator dependent Hypotension likely secondary to sepsis, requiring Levophed Anemia and leucopenia Atrial fibrillation with rapid ventricular response - rate improving - tolerating IV BB - IV Cardizem is off [id number] score of 4, yearly risk of stroke without oral anticoagulation is 4.2 percent. Continue on oral anticoagulation with Eliquis Diabetes mellitus, followed and managed by primary care physician Bronchial asthma/COPD Obesity. Questionable sleep apnea. Plan: Resp failure, COVID (+) - management per pulmonary services A-fib with RVR - rate improved Continue IV BB as tolerated Replace electrolytes as indicated Monitor lab closely There is no cardiology coverage over the weekend. Refer to primary care atte nding. If emergent cardiac services are need will require transfer to tertiary care facility, to be decided by primary care attending. BABAK [employer] Oct 29, 2020 08:40
[2020-10-29] MEDS: APAP 325 MG/10.15 ML LIQ (TYLENOL) UDC PO PRN ×2 (09:01→14:38)
[2020-10-29] MEDS: APIXABAN 5 MG (ELIQUIS) TABLET PO SCH ×2 (09:06→19:56)
[2020-10-29] MEDS: ASPIRIN 81 MG CHEW (CHILDREN'S ASA) PO SCH (09:06)
[2020-10-29] MEDS: PANTOPRAZOLE 40 MG (PROTONIX) VIAL IV SCH (09:06)
[2020-10-29] MEDS: MICONAZOLE 2% POWDER (DESENEX AF) 90 GM TOP SCH ×2 (09:07→20:36)
--- NOTE | 2020-10-29 09:54 | NUR ---
MASD noted under skin folds, pannus, and under breasts. Pannus area reddened, opened, bleeding. areas cleansed, dried. barrier cream applied. pillowcase applied to areas under pannus at this time.
[2020-10-29] MEDS ORDERED: ZINC OXIDE 40% (Butt Paste MAX/Desitin) 57 gm TOP PRN (10:00)
[2020-10-29 10:12] VITALS: BP 100/58
--- NOTE | 2020-10-29 10:33 | Diagnostic Imaging Report ---
INDICATION: Shortness of breath, COVID positive. TECHNIQUE: Single-view chest at 09:09 a.m. CORRELATION STUDY: 10/28/2020. FINDINGS: Endotracheal tube and gastric tube remain in place. Left-sided central line with tip over the mediastinum, stable. Heart size remains enlarged. Vasculature is somewhat obscured but appears slightly prominent. Bilateral pulmonary infiltrates are present. More focal dense consolidation in the right mid and perihilar region is present. IMPRESSION: 1. Stable support lines and tubes. 2. Bilateral pulmonary infiltrates, most pronounced in the right mid lung field persisting, stable to perhaps minimally improved. Dictated by: Dictated on workstation # [id number]
[2020-10-29] MEDS: MICONAZOLE NITRATE 2% CRM 30 GM TP SCH ×2 (12:47→20:36)
[2020-10-29] MEDS: 1/2 NS IV SOLUTION 1,000 ML IV SCH (12:48)
--- NOTE | 2020-10-29 13:31 | Progress Note - Cardiology ---
Cardiology SOAP Progress Note Subjective: Sedated and on vent Objective: I&O/Vital Signs 10/29/20 10/29/20 10/29/20 10/29/20 02:00 03:00 03:24 03:41 Temp 38.2 38.3 Pulse 128 112 116 Resp 16 28 28 B/P (MAP) 119/68 Pulse Ox 97 96 97 O2 Delivery Mechanical Ventilator Mechanical Ventilator O2 Flow Rate 50.00 50.00 FiO2 50 10/29/20 10/29/20 10/29/20 10/29/20 04:00 05:00 06:00 07:00 Temp 38.4 38.4 38.5 Pulse 105 110 122 133 Resp 27 28 28 B/P (MAP) Pulse Ox 94 94 94 O2 Delivery Mechanical Ventilator Mechanical Ventilator Mechanical Ventilator O2 Flow Rate 50.00 50.00 50.00 10/29/20 10/29/20 10/29/20 10/29/20 07:00 08:00 08:40 09:00 Temp 38.5 38.7 38.7 Pulse 112 138 138 Resp 23 27 36 B/P (MAP) Pulse Ox 94 95 97 96 O2 Delivery Mechanical Ventilator Mechanical Ventilator Mechanical Ventilator Mechanical Ventilator O2 Flow Rate 50.00 50.00 50.00 FiO2 100 10/29/20 10/29/20 10/29/20 10/29/20 09:01 09:08 10:00 10:12 Temp 38.8 38.9 Pulse 133 147 103 Resp 28 17 28 B/P (MAP) 119/68 Pulse Ox 97 96 O2 Delivery Mechanical Ventilator O2 Flow Rate 50.00 FiO2 100 10/29/20 10/29/20 10/29/20 10/29/20 11:00 12:00 12:56 13:00 Temp 38.9 38.8 Pulse 131 100 112 124 Resp 28 28 28 B/P (MAP) 116/74 Pulse Ox 97 97 O2 Delivery Mechanical Ventilator Mechanical Ventilator O2 Flow Rate 50.00 50.00 10/29/20 00:00 Intake Total 110 ml Output Total 950 ml Balance -840 ml Weight (Pounds): 281 Weight (Ounces): 0.0 Weight (Calculated Kilograms): 127.223229 Constitutional: other (intubated and sedated) Results/Procedures: Labs Laboratory Tests 10/28/20 14:30: Blood Gas Puncture Site L RAD, Blood Gas Patient Temperature 38.2, Arterial Blood pH 7.30*L, Arterial Blood Partial Pressure CO2 42, Arterial Blood Partial Pressure O2 136H, Arterial Blood HCO3 20L, Arterial Blood Total CO2 20.9L, Arterial Blood Oxygen Saturation 99, Arterial Blood Base Excess -5.5L, Hilario Test YES-POS, Blood Gas Ventilator Setting YES, Blood Gas Inspired Oxygen 70% 10/28/20 17:17: Glucometer 247H 10/28/20 23:03: Glucometer 240H 10/29/20 03:35: Blood Gas Puncture Site LFT ARTLINE, Blood Gas Patient Temperature 38.4, Arterial Blood pH 7.38, Arterial Blood Partial Pressure CO2 38, Arterial Blood Partial Pressure O2 100H, Arterial Blood HCO3 21L, Arterial Blood Total CO2 22.1, Arterial Blood Oxygen Saturation 97, Arterial Blood Base Excess -3.0L, Hilario Test ARTLINE, Blood Gas Ventilator Setting YES, Blood Gas Inspired Oxygen 40%, White Blood Count 7.9, Red Blood Count 2.44L, Hemoglobin 9.0L, Hematocrit 25L, Mean Corpuscular Volume 104H, Mean Corpuscular Hemoglobin 37H, Mean Corpuscular Hemoglobin Concent 35, Red Cell Distribution Width 14.4, Platelet Count 303, Mean Platelet Volume 10.9, Immature Granulocyte % (Auto) 11, Neutrophils (%) (Auto) 70, Lymphocytes (%) (Auto) 15, Monocytes (%) (Auto) 4, Eosinophils (%) (Auto) 0, Basophils (%) (Auto) 0, Neutrophils # (Auto) 5.5, Lymphocytes # (Auto) 1.2, Monocytes # (Auto) 0.4, Eosinophils # (Auto) 0.0, Basophils # (Auto) 0.0, Immature Granulocyte # (Auto) 0.9H, Sodium Level 147H, Potassium Level 4.8, Chloride Level 118H, Carbon Dioxide Level 19L, Anion Gap 10, Blood Urea Nitrogen 37H, Creatinine 0.69, Estimat Glomerular Filtration Rate > 60, BUN/Creatinine Ratio 54, Glucose Level 285H, Calcium Level 7.5L, Phosphorus Level 1.7L, Magnesium Level 3.0H, B-Type Natriuretic Peptide 90.2, Procalcitonin 1.10H 10/29/20 12:15: Glucometer 294H Microbiology 12/1/20 Blood Culture - Final, Complete Staphylococcus aureus 11/30/20 Gram Stain - Final, Complete 10/25/20 Sputum Culture - Final, Complete Usual upper respiratory yissel Staphylococcus aureus Haemophilus influenza 10/25/20 Urine Culture - Final, Complete NO GROWTH A/P: Assessment: Acute respiratory failure due to COVID-19 pneumonia, ventilator dependent Hypotension likely secondary to sepsis, requiring Levophed Anemia and leucopenia Atrial fibrillation with rapid ventricular response - rate improving - tolerating IV BB - IV Cardizem is off [id number] score of 4, yearly risk of stroke without oral anticoagulation is 4.2 percent. Continue on oral anticoagulation with Eliquis Diabetes mellitus, followed and managed by primary care physician Bronchial asthma/COPD Obesity. Questionable sleep apnea. Plan: Resp failure, COVID (+) - management per ICU and Hosp services A-fib with RVR - rate improved Continue IV BB as tolerated Replace electrolytes as indicated Monitor lab closely There is no cardiology coverage over the weekend. Refer to primary care attending. If emergent cardiac services are needed, will require transfer to tertiary care facility, to be decided by primary care attending. WING FRANCO MD FACP FACC CCDS Oct 29, 2020 13:31
[2020-10-29 15:04] VITALS: BP 118/101
[2020-10-29 18:27] VITALS: BP 114/92
[2020-10-29] MEDS ORDERED: TROUGH ORDER-PHARMACY XX NR (19:00)
[2020-10-29 23:21] VITALS: BP 110/97
[2020-10-30] MEDS: fentaNYL DRIP PRE-MIX 250 ML IV SCH ×3 (00:26→23:00)
[2020-10-30 02:24] VITALS: BP 117/99
[2020-10-30] MEDS: RT-ALBUTEROL INHALER HFA (VENTOLIN HFA) 18 GM IH SCH ×6 (02:24→23:23)
[2020-10-30 03:01] LABS: BASOPHILS % (AUTO) 0 % (0-10); EOSINOPHILS % (AUTO) 0 % (0-10); HEMATOCRIT 26 % (35-52); HEMOGLOBIN 9.3 g/dL (11.5-16.0); LYMPHOCYTES % (AUTO) 12 % (12-44); MEAN CORPUSCULAR HEMOGLOBIN 38 pg (25-34); MEAN CORPUSCULAR HGB CONC 36 g/dL (32-36); MEAN CORPUSCULAR VOLUME 106 fL (80-99); MEAN PLATELET VOLUME 11.1 fL (9.0-12.2); MONOCYTES # (AUTO) 0.3 10^3/uL (0.0-1.0); MONOCYTES % (AUTO) 4 % (0-12); NEUTROPHILS % (AUTO) 72 % (42-75); PLATELET COUNT 301 10^3/uL (130-400); WHITE BLOOD COUNT 8.3 10^3/uL (4.3-11.0)
[2020-10-30 03:03] LABS: ABG BASE EXCESS -2.7 MMOL/L (-2.5-2.5); ABG OXYGEN SATURATION 96 % (94-100); ABG PCO2 37 MMHG (35-45); ABG PH 7.38 (7.37-7.43); ABG PO2 93 MMHG (79-93); ABG TCO2 22.5 MMOL/L (21.0-31.0)
[2020-10-30 03:08] LABS: INSPIRED O2 35; PATIENT TEMP 37.9; VENTILATOR YES
[2020-10-30 03:18] LABS: CHLORIDE 116 MMOL/L (98-107); POTASSIUM 4.9 MMOL/L (3.6-5.0); SODIUM 147 MMOL/L (135-145)
[2020-10-30 03:20] LABS: CALCIUM 7.2 MG/DL (8.5-10.1); GLUCOSE 354 MG/DL (70-105)
[2020-10-30 03:22] LABS: CARBON DIOXIDE 21 MMOL/L (21-32)
[2020-10-30 03:24] LABS: CREATININE SERUM 0.62 MG/DL (0.60-1.30); GFR ESTIMATED > 60; PHOSPHORUS 2.4 MG/DL (2.3-4.7)
[2020-10-30 03:25] LABS: BUN/CREATININE RATIO 55
[2020-10-30 03:27] LABS: MAGNESIUM 2.8 MG/DL (1.6-2.4)
[2020-10-30] MEDS: POTASSIUM CL 10MEQ/50ML IVPB 50 ML IV SCH (03:48)
[2020-10-30] MEDS: MAGNESIUM 1 GM/100 ML IVPB 100 ML IV SCH (03:48)
[2020-10-30] MEDS: KCL 20 MEQ TAB (K-DUR) PO SCH (03:48)
[2020-10-30] MEDS: MEROPENEM 500 MG in WATER (STERILE) FOR INJECTION 10 ML IV SCH ×4 (04:16→23:00)
[2020-10-30] MEDS: meTOprolol 5 MG/5 ML (LOPRESSOR) VIAL IV SCH ×5 (04:16→20:19)
[2020-10-30] MEDS: inSUlin ASPART (NovoLOG) 1 UNIT/0.01 ML (CHARGE PER UNIT) SC SCH ×3 (05:45→17:21)
[2020-10-30 07:04] VITALS: BP 119/82
[2020-10-30] MEDS: MICONAZOLE 2% POWDER (DESENEX AF) 90 GM TOP SCH ×2 (08:37→20:23)
[2020-10-30] MEDS: APAP 325 MG/10.15 ML LIQ (TYLENOL) UDC PO PRN (08:37)
[2020-10-30] MEDS: ASPIRIN 81 MG CHEW (CHILDREN'S ASA) PO SCH (08:37)
[2020-10-30] MEDS: MICONAZOLE NITRATE 2% CRM 30 GM TP SCH ×2 (08:37→20:31)
[2020-10-30] MEDS: APIXABAN 5 MG (ELIQUIS) TABLET PO SCH ×2 (08:37→20:22)
[2020-10-30] MEDS: PANTOPRAZOLE 40 MG (PROTONIX) VIAL IV SCH (08:37)
[2020-10-30] MEDS: MIDAZOLAM DRIP PRE-MIX 100 ML IV SCH ×2 (09:02→20:26)
[2020-10-30] MEDS ORDERED: ALTEPLASE 2 MG (CATHFLO) IV ONE (10:00)
[2020-10-30 10:50] VITALS: BP 114/99
--- NOTE | 2020-10-30 10:57 | Progress Note - Hospitalist ---
Subjective HPI/CC On Admission Date Seen by Provider: Oct 30, 2020 Time Seen by Provider: 09:30 CC: Respiratory failure due to COVID-19 PNA HPI: This is a 45 yoWF clinic patient of [facility] who presents to the ER with dyspnea and hypoxia and rapid heart rate. AF w/RVR dx and COVID swab was positive. Patient was placed in the ICU for Cardiology management with rate management drips and required hi-martina O2 then Vapotherm and then biPAP. She is tachypneic and pursed lip breathing and is struggling to breath and I talk to her about the ventilator and she is agreeable for the plan for intubation and supportive care. Subjective/Events-last exam Patient is intubated and sedated and nonresponsive. Discussed care with nurse who notes that blood sugars remain very high and labile as she is still on Decadron in addition I was called by lab and it looks like she has gram-negative rods most likely Proteus from central line. She has been on meropenem which should cover the gram-negative rods however she remains febrile and in an abundance of caution I will start her back on vancomycin because of the sputum culture showing staph as well as from an art line. Objective Exam Vital Signs Vital Signs Date Time Temp Pulse Resp B/P (MAP) Pulse Ox O2 Delivery O2 Flow Rate FiO2 10/30/20 10:00 138 100/84 95 Mechanical Ventilator 35.00 10/30/20 09:10 38.1 10/30/20 09:02 28 10/30/20 08:40 35 Capillary Refill : Less Than 3 Seconds General Appearance: Obese, Other (Intubated) Neck: Limited Range of Motion, Other (Wart) Respiratory: Decreased Breath Sounds, Wheezing Cardiovascular: Regular Rate, Rhythm, No Gallop Gastrointestinal: Abnormal Bowel Sounds, Other Back: Normal Inspection Extremity: Other (Anasarca) Results/Procedures Lab Laboratory Tests 10/30/20 02:35 Patient resulted labs reviewed. Imaging: Reviewed Imaging Films, Reviewed Imaging Report Assessment/Plan Assessment and Plan Assess & Plan/Chief Complaint Respiratory failure secondary to ARDS from [id number] of 16 FiO2 of 35% with a tidal volume of 450 Fever with normal white count cultures show gram-negative rods will restart vancomycin continue meropenem Obesity Type 2 diabetes with hyperglycemia aan-ft-xopnctd add Levemir with sliding scale insulin A. fib with RVR and tachycardia Prognosis remains guarded Critical Care Critically Ill Patient Clinical Quality Measures DVT/VTE Risk/Contraindication: Risk Factor Score Per Nursin RFS Level Per Nursing on Admit: 4+=Very High JOE NEW MD Oct 30, 2020 10:57
[2020-10-30] MEDS ORDERED: VANCOMYCIN INJECTION 0.1 MG in NS (IVPB) 250 ML IV SCH (11:00)
--- NOTE | 2020-10-30 11:01 | NUR ---
PTD Vancomycin - 2gm loading dose over 2 hours, then 1250mg every 8 hours. Trough ordered for 10/31 @ 1999. IF trough result is greater than 20, hold until Sunday, 11/01, morning for pharmacy to dose adjust.
[2020-10-30] MEDS ORDERED: VANCOMYCIN 2000 MG/NS 500 ML IVPB IV NR ×2 (11:30)
--- NOTE | 2020-10-30 11:34 | Diagnostic Imaging Report ---
INDICATION: On a ventilator. Covid positive. Follow-up. EXAMINATION: Single view chest 10/30/2020. COMPARISON: 10/29/2020 FINDINGS: The heart is prominent. There is pulmonary vascular congestion. There are infiltrates bilaterally with areas of atelectasis as well. Some of the infiltrates on the right are more consolidated today. No pneumothorax or significant effusion. ET tube is unremarkable. A feeding tube is noted. Its tip is not well seen. IMPRESSION: 1. Persistent bilateral infiltrates some of which are more prominent today. Other findings as above. Dictated by: Dictated on workstation # [id number]
[2020-10-30] MEDS: 1/2 NS IV SOLUTION 1,000 ML IV SCH (12:14)
--- NOTE | 2020-10-30 12:15 | NUR ---
CATHFLO GIVEN BY PICC LINE LISA GONZALEZ.
[2020-10-30] MEDS: ACETAMINOPHEN 650 MG SUPP (TYLENOL) PR PRN (15:40)
[2020-10-30 15:41] VITALS: BP 115/99
--- NOTE | 2020-10-30 16:07 | Cardiology Progress Note ---
Cardiology SOAP Progress Note Subjective: Intubated/ventilated. Objective: I&O/Vital Signs 10/30/20 10/30/20 10/30/20 10/30/20 05:00 06:00 07:00 07:00 Temp 38.1 Pulse 112 114 120 117 Resp 27 28 B/P (MAP) 126/110 108/83 133/93 Pulse Ox 95 97 98 O2 Delivery Mechanical Ventilator Mechanical Ventilator Mechanical Ventilator O2 Flow Rate 35.00 35.00 35.00 10/30/20 10/30/20 10/30/20 10/30/20 07:04 08:00 08:37 08:40 Temp 38.1 38.1 Pulse 129 147 Resp 28 B/P (MAP) 114/90 Pulse Ox 98 98 O2 Delivery Mechanical Ventilator Mechanical Ventilator O2 Flow Rate 35.00 FiO2 80 35 10/30/20 10/30/20 10/30/20 10/30/20 09:00 09:02 09:10 10:00 Temp 38.3 38.1 38.1 Pulse 146 147 138 Resp 28 B/P (MAP) 112/92 114/90 100/84 Pulse Ox 96 95 O2 Delivery Mechanical Ventilator Mechanical Ventilator O2 Flow Rate 35.00 35.00 10/30/20 10/30/20 10/30/20 10/30/20 10:50 11:00 11:13 12:00 Temp 38.2 38.3 38.1 Pulse 166 154 129 Resp 28 28 B/P (MAP) 107/97 105/88 Pulse Ox 91 92 96 O2 Delivery Mechanical Ventilator Mechanical Ventilator O2 Flow Rate 35.00 35.00 FiO2 80 10/30/20 10/30/20 10/30/20 10/30/20 13:00 13:00 14:00 15:00 Temp 38.1 38.1 38.2 Pulse 129 146 123 137 Resp 28 27 28 B/P (MAP) 118/98 114/103 115/99 Pulse Ox 98 97 98 O2 Delivery Mechanical Ventilator Mechanical Ventilator Mechanical Ventilator O2 Flow Rate 35.00 35.00 35.00 10/30/20 10/30/20 15:40 15:41 Temp 38.4 Pulse 138 Resp 28 Pulse Ox 95 FiO2 60 10/30/20 00:00 Intake Total 705 ml Output Total 1350 ml Balance -645 ml Weight (Pounds): 281 Weight (Ounces): 0.0 Weight (Calculated Kilograms): 127.769651 Constitutional: other (intubated and sedated) Cardiovascular: irregularly irregular, tachycardia Gastrointestional: round, distended Extremities: normal inspection Neurologic/Psychiatric: other (intubated/ventilated.) Results/Procedures: Labs Laboratory Tests 10/29/20 17:12: Glucometer 319H 10/29/20 22:39: Glucometer 294H 10/30/20 02:35: White Blood Count 8.3, Red Blood Count 2.45L, Hemoglobin 9.3L, Hematocrit 26L, Mean Corpuscular Volume 106H, Mean Corpuscular Hemoglobin 38H, Mean Corpuscular Hemoglobin Concent 36, Red Cell Distribution Width 14.1, Platelet Count 301, Mean Platelet Volume 11.1, Immature Granulocyte % (Auto) 12, Neutrophils (%) (Auto) 72, Lymphocytes (%) (Auto) 12, Monocytes (%) (Auto) 4, Eosinophils (%) (Auto) 0, Basophils (%) (Auto) 0, Neutrophils # (Auto) 6.0, Lymphocytes # (Auto) 1.0, Monocytes # (Auto) 0.3, Eosinophils # (Auto) 0.0, Basophils # (Auto) 0.0, Immature Granulocyte # (Auto) 1.0H, Blood Gas Puncture Site LEFT RADIAL, Blood Gas Patient Temperature 37.9, Arterial Blood pH 7.38, Arterial Blood Partial Pressure CO2 37, Arterial Blood Partial Pressure O2 93, Arterial Blood HCO3 21L, Arterial Blood Total CO2 22.5, Arterial Blood Oxygen Saturation 96, Arterial Blood Base Excess -2.7L, Hilario Test UNKNOWN, Blood Gas Ventilator Setting YES, Blood Gas Inspired Oxygen 35, Sodium Level 147H, Potassium Level 4.9, Chloride Level 116H, Carbon Dioxide Level 21, Anion Gap 10, Blood Urea Nitrogen 34H, Cre atinine 0.62, Estimat Glomerular Filtration Rate > 60, BUN/Creatinine Ratio 55, Glucose Level 354H, Calcium Level 7.2L, Phosphorus Level 2.4, Magnesium Level 2.8H 10/30/20 11:12: Glucometer 314H Microbiology 10/28/20 Blood Culture - Preliminary, Resulted No growth 10/25/20 Gram Stain - Final, Complete 10/25/20 Sputum Culture - Final, Complete Usual upper respiratory yissel Staphylococcus aureus Haemophilus influenza 10/25/20 Urine Culture - Final, Complete NO GROWTH A/P: Assessment/Dx: Acute respiratory failure due to COVID-19 pneumonia, ventilator dependent Hypotension likely secondary to sepsis, requiring Levophed Anemia and leucopenia Atrial fibrillation with rapid ventricular response -IV beta blockers. [id number] score of 4, yearly risk of stroke without oral anticoagulation is 4.2 percent. Continue on oral anticoagulation with Eliquis Diabetes mellitus, followed and managed by primary care physician Bronchial asthma/COPD Obesity. Questionable sleep apnea. Plan: Resp failure, COVID (+) - management per ICU and Hosp services A-fib with RVR - Continue IV BB as tolerated Replace electrolytes as indicated Monitor lab closely Thank you for your consultation. Please call me if you have any questions. Jada Urias MD, FACP, FACC, FSCAI, FHRS, CCDS Interventional Cardiology Cardiac Electrophysiology Vascular Medicine and Endovascular Interventions [place] URIAS MD Oct 30, 2020 16:07
[2020-10-30 18:50] VITALS: BP 108/92
[2020-10-30] MEDS: VANCOMYCIN 1250 MG/NS 250 ML IVPB IV SCH ×2 (20:22)
[2020-10-30 23:23] VITALS: BP 114/100
[2020-10-31] MEDS: 1/2 NS IV SOLUTION 1,000 ML IV SCH (00:48)
[2020-10-31] MEDS: inSUlin ASPART (NovoLOG) 1 UNIT/0.01 ML (CHARGE PER UNIT) SC SCH ×4 (00:48→17:58)
[2020-10-31] MEDS: meTOprolol 5 MG/5 ML (LOPRESSOR) VIAL IV SCH ×3 (00:48→07:48)
[2020-10-31 02:12] VITALS: BP 116/93
[2020-10-31] MEDS: RT-ALBUTEROL INHALER HFA (VENTOLIN HFA) 18 GM IH SCH ×6 (02:12→21:28)
[2020-10-31 03:00] LABS: BASOPHILS % (AUTO) 0 % (0-10); EOSINOPHILS % (AUTO) 0 % (0-10); HEMATOCRIT 30 % (35-52); HEMOGLOBIN 10.3 g/dL (11.5-16.0); LYMPHOCYTES # (AUTO) 0.8 10^3/uL (1.0-4.0); LYMPHOCYTES % (AUTO) 9 % (12-44); MEAN CORPUSCULAR HEMOGLOBIN 37 pg (25-34); MEAN CORPUSCULAR HGB CONC 34 g/dL (32-36); MEAN CORPUSCULAR VOLUME 107 fL (80-99); MEAN PLATELET VOLUME 11.4 fL (9.0-12.2); MONOCYTES # (AUTO) 0.4 10^3/uL (0.0-1.0); MONOCYTES % (AUTO) 4 % (0-12); NEUTROPHILS # (AUTO) 7.1 10^3/uL (1.8-7.8); NEUTROPHILS % (AUTO) 77 % (42-75); PLATELET COUNT 326 10^3/uL (130-400); WHITE BLOOD COUNT 9.2 10^3/uL (4.3-11.0)
[2020-10-31 03:02] LABS: ABG BASE EXCESS -3.5 MMOL/L (-2.5-2.5); ABG OXYGEN SATURATION 96 % (94-100); ABG PCO2 40 MMHG (35-45); ABG PO2 97 MMHG (79-93); ABG TCO2 22.3 MMOL/L (21.0-31.0)
[2020-10-31 03:03] LABS: ALLENS TEST POSITIVE; INSPIRED O2 45; PATIENT TEMP 37.7; VENTILATOR YES
[2020-10-31 03:05] LABS: ABG PH 7.34 (7.37-7.43)
[2020-10-31 03:16] LABS: CHLORIDE 117 MMOL/L (98-107); SODIUM 150 MMOL/L (135-145)
[2020-10-31 03:18] LABS: CALCIUM 7.3 MG/DL (8.5-10.1)
[2020-10-31 03:20] LABS: CARBON DIOXIDE 22 MMOL/L (21-32)
[2020-10-31 03:22] LABS: CREATININE SERUM 0.71 MG/DL (0.60-1.30); GFR ESTIMATED > 60; PHOSPHORUS 2.8 MG/DL (2.3-4.7)
[2020-10-31 03:23] LABS: BUN/CREATININE RATIO 54
[2020-10-31 03:57] LABS: GLUCOSE 476 MG/DL (70-105)
[2020-10-31] MEDS ORDERED: meTOprolol 5 MG/5 ML (LOPRESSOR) VIAL IV ONE (04:15)
[2020-10-31] MEDS: POTASSIUM CL 10MEQ/50ML IVPB 50 ML IV SCH (05:09)
[2020-10-31] MEDS: MAGNESIUM 1 GM/100 ML IVPB 100 ML IV SCH (05:09)
[2020-10-31] MEDS: KCL 20 MEQ TAB (K-DUR) PO SCH (05:10)
[2020-10-31] MEDS: MEROPENEM 500 MG in WATER (STERILE) FOR INJECTION 10 ML IV SCH ×4 (06:02→22:50)
[2020-10-31] MEDS: VANCOMYCIN 1250 MG/NS 250 ML IVPB IV SCH ×6 (06:02→21:06)
[2020-10-31] MEDS: fentaNYL DRIP PRE-MIX 250 ML IV SCH ×3 (06:03→21:09)
[2020-10-31] MEDS: MIDAZOLAM DRIP PRE-MIX 100 ML IV SCH ×2 (07:05→22:50)
[2020-10-31] MEDS: PANTOPRAZOLE 40 MG (PROTONIX) VIAL IV SCH (07:52)
[2020-10-31] MEDS: MICONAZOLE 2% POWDER (DESENEX AF) 90 GM TOP SCH ×2 (07:53→20:18)
[2020-10-31] MEDS: MICONAZOLE NITRATE 2% CRM 30 GM TP SCH ×2 (07:53→20:18)
[2020-10-31] MEDS: ASPIRIN 81 MG CHEW (CHILDREN'S ASA) PO SCH (07:53)
[2020-10-31] MEDS: APIXABAN 5 MG (ELIQUIS) TABLET PO SCH ×2 (07:53→20:18)
[2020-10-31 08:16] VITALS: BP 106/84
--- NOTE | 2020-10-31 08:25 | NUR ---
UNABLE TO SCAN MEDICATIONS IN ROOM, SCANNER NOT WORKING/ OR STAYING CHARGED.
--- NOTE | 2020-10-31 08:53 | Progress Note - Hospitalist ---
Subjective HPI/CC On Admission Date Seen by Provider: Oct 31, 2020 Time Seen by Provider: 07:30 CC: Respiratory failure due to COVID-19 PNA HPI: This is a 45 yoWF clinic patient of [facility] who presents to the ER with dyspnea and hypoxia and rapid heart rate. AF w/RVR dx and COVID swab was positive. Patient was placed in the ICU for Cardiology management with rate management drips and required hi-martina O2 then Vapotherm and then biPAP. She is tachypneic and pursed lip breathing and is struggling to breath and I talk to her about the ventilator and she is agreeable for the plan for intubation and supportive care. Subjective/Events-last exam Patient renal caryn intubated and sedated she is on D10 Decadron. also on vancomycin meropenem. She has been afebrile for the last 24 hours since starting the vancomycin. Patient's heart rate is in the 140s-A. fib Review of Systems Neurological: Other (Sedated and intubated) Objective Exam Vital Signs Vital Signs Date Time Temp Pulse Resp B/P (MAP) Pulse Ox O2 Delivery O2 Flow Rate FiO2 10/31/20 08:16 141 28 90 50 10/31/20 07:05 103/83 10/31/20 06:00 37.1 Mechanical Ventilator 45.00 Capillary Refill : Less Than 3 Seconds General Appearance: Obese Neck: Limited Range of Motion Respiratory: Normal Breath Sounds, No Accessory Muscle Use, No Respiratory Distress Cardiovascular: Irregularly Irregular, Tachycardia Gastrointestinal: Soft, Distended Extremity: Pedal Edema, Swelling, Other (Anasarca) Results/Procedures Lab Laboratory Tests 10/31/20 02:43 Patient resulted labs reviewed. Imaging: Reviewed Imaging Films, Reviewed Imaging Report Assessment/Plan Assessment and Plan Assess & Plan/Chief Complaint Respiratory failure secondary to ARDS from [id number] of 16 FiO2 of 35% with a tidal volume of 450-currently stable-is on D10 Decadron so will DC Fever with normal white count cultures show gram-negative rods will restart vancomycin continue meropenem-is now been afebrile 24 hours Obesity Type 2 diabetes with hyperglycemia [id number] add Levemir with sliding scale insulin- A. fib with RVR and tachycardia-start metoprolol 25 every 8 hours per NG tube Prognosis remains guarded Critical Care Critically Ill Patient Clinical Quality Measures DVT/VTE Risk/Contraindication: Risk Factor Score Per Nursin RFS Level Per Nursing on Admit: 4+=Very High JOE NEW MD Oct 31, 2020 08:53
[2020-10-31] MEDS: meTOprolol TARTRATE 25 MG (LOPRESSOR) TABLET NG SCH ×2 (09:28→12:26)
--- NOTE | 2020-10-31 09:52 | Diagnostic Imaging Report ---
CHEST 1 VIEW, AP/PA ONLY Indication: Shortness of breath Comparison: 10/30/2020 Findings: Improved aeration in the bilateral lung zones. Right perihilar consolidations including bandlike atelectasis have improved but persists. No pleural effusion or pneumothorax. Stable cardiomediastinal silhouette. Stable left PICC, ET tube and enteric tube. ET tube has tip 7.3 cm above the richardson. Impression: 1. ET tube tip is approximately 7.3 cm above the richardson. Consider advancement. 2. Improved aeration within the lungs but right perihilar opacities persist. Dictated by: Dictated on workstation # [id number]
[2020-10-31 11:19] VITALS: BP 118/82
--- NOTE | 2020-10-31 12:35 | Cardiology Progress Note ---
Cardiology SOAP Progress Note Subjective: Intubated/ventilated. Objective: I&O/Vital Signs 10/31/20 10/31/20 10/31/20 10/31/20 00:52 00:52 02:00 02:12 Temp 37.7 37.7 Pulse 146 137 156 147 Resp B/P (MAP) 103/92 116/93 Pulse Ox 95 95 95 O2 Delivery Mechanical Ventilator Mechanical Ventilator O2 Flow Rate 45.00 45.00 FiO2 45 10/31/20 10/31/20 10/31/20 10/31/20 03:00 04:00 04:15 05:00 Temp 37.8 37.8 37.1 Pulse 156 168 123 Resp B/P (MAP) 119/97 127/95 111/96 Pulse Ox 94 90 91 92 O2 Delivery Mechanical Ventilator Mechanical Ventilator Mechanical Ventilator Mechanical Ventilator O2 Flow Rate 45.00 45.00 50.00 50.00 10/31/20 10/31/20 10/31/20 10/31/20 06:00 07:00 07:00 07:05 Temp 37.1 37.2 Pulse 122 120 142 122 Resp B/P (MAP) 103/83 99/78 103/83 Pulse Ox 94 93 O2 Delivery Mechanical Ventilator Mechanical Ventilator O2 Flow Rate 45.00 45.00 10/31/20 10/31/20 10/31/20 10/31/20 07:48 08:00 08:16 08:35 Temp 37.5 37.5 Pulse 134 133 141 Resp B/P (MAP) 111/95 106/84 Pulse Ox 92 89 90 O2 Delivery Mechanical Ventilator Mechanical Ventilator Mechanical Ventilator O2 Flow Rate 45.00 45.00 FiO2 50 50 10/31/20 10/31/20 10/31/20 10/31/20 09:00 10:00 11:00 11:19 Temp 37.6 37.6 37.6 Pulse 141 123 133 125 Resp B/P (MAP) 99/78 106/90 118/82 Pulse Ox 89 90 88 90 O2 Delivery Mechanical Ventilator Mechanical Ventilator Mechanical Ventilator O2 Flow Rate 45.00 45.00 45.00 FiO2 50 10/31/20 11:35 Temp 38.2 10/31/20 00:00 Intake Total 857.5 ml Output Total 1150 ml Balance -292.5 ml Weight (Pounds): 281 Weight (Ounces): 0.0 Weight (Calculated Kilograms): 127.130085 Constitutional: other (intubated and sedated) Cardiovascular: irregularly irregular, tachycardia Gastrointestional: round, distended Extremities: normal inspection Neurologic/Psychiatric: other (intubated/ventilated.) Results/Procedures: Labs Laboratory Tests 10/30/20 17:12: Glucometer 350H 10/31/20 00:41: Glucometer 377H 10/31/20 02:43: White Blood Count 9.2, Red Blood Count 2.81L, Hemoglobin 10.3L, Hematocrit 30L, Mean Corpuscular Volume 107H, Mean Corpuscular Hemoglobin 37H, Mean Corpuscular Hemoglobin Concent 34, Red Cell Distribution Width 14.2, Platelet Count 326, Mean Platelet Volume 11.4, Immature Granulocyte % (Auto) 10, Neutrophils (%) (Auto) 77H, Lymphocytes (%) (Auto) 9L, Monocytes (%) (Auto) 4, Eosinophils (%) (Auto) 0, Basophils (%) (Auto) 0, Neutrophils # (Auto) 7.1, Lymphocytes # (Auto) 0.8L, Monocytes # (Auto) 0.4, Eosinophils # (Auto) 0.0, Basophils # (Auto) 0.0, Immature Granulocyte # (Auto) 0.9H, Blood Gas Puncture Site LEFT RADIAL, Blood Gas Patient Temperature 37.7, Arterial Blood pH 7.34*L, Arterial Blood Partial Pressure CO2 40, Arterial Blood Partial Pressure O2 97H, Arterial Blood HCO3 21L , Arterial Blood Total CO2 22.3, Arterial Blood Oxygen Saturation 96, Arterial Blood Base Excess -3.5L, Hilario Test POSITIVE, Blood Gas Ventilator Setting YES, Blood Gas Inspired Oxygen 45, Sodium Level 150H, Potassium Level 5.0, Chloride Level 117H, Carbon Dioxide Level 22, Anion Gap 11, Blood Urea Nitrogen 38H, Creatinine 0.71, Estimat Glomerular Filtration Rate > 60, BUN/Creatinine Ratio 54, Glucose Level 476*H, Calcium Level 7.3L, Phosphorus Level 2.8, Magnesium Level 3.0H 10/31/20 11:34: Glucometer 341H Microbiology 10/29/20 Catheter Tip Culture - Preliminary, Resulted No growth 10/28/20 Blood Culture - Preliminary, Resulted No growth 10/25/20 Gram Stain - Final, Complete 10/25/20 Sputum Culture - Final, Complete Usual upper respiratory yissel Staphylococcus aureus Haemophilus influenza 10/25/20 Urine Culture - Final, Complete NO GROWTH A/P: Assessment/Dx: Acute respiratory failure due to COVID-19 pneumonia, ventilator dependent Hypotension likely secondary to sepsis, requiring Levophed Anemia and leucopenia Atrial fibrillation with rapid ventricular response -IV beta blockers. [id number] score of 4, yearly risk of stroke without oral anticoagulation is 4.2 percent. Continue on oral anticoagulation with Eliquis Diabetes mellitus, followed and managed by primary care physician Bronchial asthma/COPD Obesity. Questionable sleep apnea. Plan: Resp failure, COVID (+) - management per ICU and Hosp services A-fib with RVR - Continue IV BB as tolerated Replace electrolytes as indicated Monitor lab closely Thank you for your consultation. Please call me if you have any questions. Jada Urias MD, FACP, FACC, FSCAI, FHRS, CCDS Interventional Cardiology Cardiac Electrophysiology Vascular Medicine and Endovascular Interventions [place] URIAS MD Oct 31, 2020 12:35
--- NOTE | 2020-10-31 12:47 | NUR ---
DR GATICA CALLED NEW ORDERS RECEIVED. SEE ORDER HX
[2020-10-31 15:41] VITALS: BP 156/120
--- NOTE | 2020-10-31 17:58 | NUR ---
THIS RN NOTIFIED E-ICU ABOUT PT'S CONTINUED ELEVATED HEART RATE, AND ELEVATED BLOOD PRESSURE, AWAITING NEW ORDERS. PT'S TEMP NOTED AT 39.3 TYLENOL GIVEN
[2020-10-31] MEDS: APAP 325 MG/10.15 ML LIQ (TYLENOL) UDC PO PRN (18:03)
[2020-10-31] MEDS: dilTIAZem DRIP PRE-MIX 125 ML IV SCH (18:15)
[2020-10-31 19:38] VITALS: BP 152/81
[2020-10-31] MEDS ORDERED: TROUGH ORDER-PHARMACY XX NR (20:00)
[2020-10-31] MEDS: meTOprolol TARTRATE 50 MG (LOPRESSOR) TAB PO SCH (20:18)
[2020-10-31 21:28] VITALS: BP 120/83
[2020-11-01] MEDS: inSUlin ASPART (NovoLOG) 1 UNIT/0.01 ML (CHARGE PER UNIT) SC SCH ×5 (00:29→20:43)
[2020-11-01 01:59] VITALS: BP 134/91
[2020-11-01] MEDS: RT-ALBUTEROL INHALER HFA (VENTOLIN HFA) 18 GM IH SCH ×6 (01:59→21:36)
[2020-11-01 03:39] LABS: ABG BASE EXCESS 0.2 MMOL/L (-2.5-2.5); ABG OXYGEN SATURATION 90 % (94-100); ABG PCO2 40 MMHG (35-45); ABG PO2 69 MMHG (79-93); ABG TCO2 25.5 MMOL/L (21.0-31.0); BASOPHILS % (AUTO) 0 % (0-10); EOSINOPHILS % (AUTO) 0 % (0-10); HEMATOCRIT 31 % (35-52); HEMOGLOBIN 10.4 g/dL (11.5-16.0); LYMPHOCYTES # (AUTO) 1.3 10^3/uL (1.0-4.0); LYMPHOCYTES % (AUTO) 14 % (12-44); MEAN CORPUSCULAR HEMOGLOBIN 35 pg (25-34); MEAN CORPUSCULAR HGB CONC 33 g/dL (32-36); MEAN CORPUSCULAR VOLUME 104 fL (80-99); MEAN PLATELET VOLUME 11.3 fL (9.0-12.2); MONOCYTES # (AUTO) 0.3 10^3/uL (0.0-1.0); MONOCYTES % (AUTO) 4 % (0-12); NEUTROPHILS % (AUTO) 76 % (42-75); PLATELET COUNT 307 10^3/uL (130-400); WHITE BLOOD COUNT 9.2 10^3/uL (4.3-11.0)
[2020-11-01 03:42] LABS: ALLENS TEST POSITIVE; INSPIRED O2 70; PATIENT TEMP 37.3; VENTILATOR YES
[2020-11-01 03:47] LABS: CHLORIDE 115 MMOL/L (98-107); POTASSIUM 4.7 MMOL/L (3.6-5.0); SODIUM 149 MMOL/L (135-145)
[2020-11-01 03:48] LABS: CALCIUM 7.3 MG/DL (8.5-10.1)
[2020-11-01 03:51] LABS: CARBON DIOXIDE 25 MMOL/L (21-32)
[2020-11-01 03:53] LABS: CREATININE SERUM 0.64 MG/DL (0.60-1.30); GFR ESTIMATED > 60; PHOSPHORUS 2.7 MG/DL (2.3-4.7)
[2020-11-01 03:54] LABS: BUN/CREATININE RATIO 44
[2020-11-01 03:55] LABS: MAGNESIUM 2.8 MG/DL (1.6-2.4)
[2020-11-01 04:11] LABS: GLUCOSE 404 MG/DL (70-105)
[2020-11-01] MEDS: POTASSIUM CL 10MEQ/50ML IVPB 50 ML IV SCH (04:27)
[2020-11-01] MEDS: MAGNESIUM 1 GM/100 ML IVPB 100 ML IV SCH (04:27)
[2020-11-01] MEDS: KCL 20 MEQ TAB (K-DUR) PO SCH (04:28)
--- NOTE | 2020-11-01 05:20 | Pulmonary Progress Note ---
Subjective Time Seen by a Provider: 05:14 Sepsis Event Evaluation Height, Weight, BMI Height: 5'4.00" Weight: 281lbs. 0.0oz. 127.333281oe; 74.00 BMI Method:Stated Exam Exam Vital Signs Date Time Temp Pulse Resp B/P (MAP) Pulse Ox O2 Delivery O2 Flow Rate FiO2 11/01/20 03:50 37.3 11/01/20 01:59 133 28 94 50 10/31/20 23:00 38.3 137 27 104/93 93 Mechanical Ventilator 50.00 10/31/20 22:50 111/95 10/31/20 22:00 38.6 137 114/99 93 Mechanical Ventilator 50.00 10/31/20 21:28 120 28 91 50 10/31/20 21:00 92 Mechanical Ventilator 50 10/31/20 21:00 38.8 111 110/98 92 Mechanical Ventilator 50.00 10/31/20 20:07 39.0 144 22 125/98 92 Mechanical Ventilator 50.00 10/31/20 19:38 133 28 93 50 10/31/20 19:00 39.2 124 27 152/81 92 Mechanical Ventilator 50.00 10/31/20 19:00 124 10/31/20 18:49 39.3 10/31/20 18:03 39.3 10/31/20 18:00 39.3 138 17 110/88 93 Mechanical Ventilator 50.00 10/31/20 17:00 34.6 142 33 126/107 92 Mechanical Ventilator 50.00 10/31/20 16:00 142 125/116 93 Mechanical Ventilator 50.00 10/31/20 15:41 141 28 93 50 10/31/20 15:00 142 36 91 Mechanical Ventilator 45.00 10/31/20 14:00 147 36 140/97 91 Mechanical Ventilator 45.00 10/31/20 13:00 144 35 122/104 91 Mechanical Ventilator 45.00 10/31/20 12:37 135 10/31/20 12:00 147 28 103/92 90 Mechanical Ventilator 45.00 10/31/20 11:35 38.2 10/31/20 11:19 125 28 90 50 10/31/20 11:00 37.6 133 25 118/82 88 Mechanical Ventilator 45.00 10/31/20 10:00 37.6 123 28 106/90 90 Mechanical Ventilator 45.00 10/31/20 09:00 37.6 141 28 99/78 89 Mechanical Ventilator 45.00 10/31/20 08:35 Mechanical Ventilator 50 10/31/20 08:16 141 28 90 50 10/31/20 08:00 37.5 133 28 106/84 89 Mechanical Ventilator 45.00 10/31/20 07:48 37.5 134 27 111/95 92 Mechanical Ventilator 45.00 10/31/20 07:05 122 28 103/83 10/31/20 07:00 142 10/31/20 07:00 37.2 120 27 99/78 93 Mechanical Ventilator 45.00 10/31/20 06:00 37.1 122 28 103/83 94 Mechanical Ventilator 45.00 l I & O 11/01/20 07:00 Intake Total 535 ml Output Total 2000 ml Balance -1465 ml Height & Weight Height: 5'4.00" Weight: 281lbs. 0.0oz. 127.912983xe; 74.00 BMI Method:Stated General Appearance: Obese HEENT: PERRL/EOMI, TMs Normal Neck: Limited Range of Motion Respiratory: Normal Breath Sounds, No Accessory Muscle Use, No Respiratory Distress Cardiovascular: Irregularly Irregular, Tachycardia Capillary Refill: Less Than 3 Seconds Extremity: Pedal Edema, Swelling, Other (Anasarca) Neurologic/Psychiatric: Disoriented Skin: Normal Color, Warm/Dry Lymphatic: No Adenopathy Results Lab Laboratory Tests 10/31/20 02:43 11/01/20 03:21 Assessment/Plan Assessment/Plan Acute respiratory failure with ARDS secondary to COVID -Currently on Vent -Decrease VT to 400 -Currently on Fentanyl and Versed -Continue TF per dietary recs -Prone pt x 16hrs -Remdesivir, CVP -Decadron PNA with s. aureus Tm 39.2 last night - Merrem (multiple allergies) -Vanco - restarted on Sunday Tacycardia -Currently on Cardizem bacteremia with persistent fevers -Continue Merrem -Repeat BC pending -MRSA nasal swab is negative. Hypernatremia -Change IVF to 1/2 NS - Monitor Anemia -Monitor Afib RVR -Eliquis -Cardiology Decrease phos -Replace Morbid obesity GI/DVT ppx -Eliquis - Protonix EDWIN REIS DO Nov 01, 2020 05:20
[2020-11-01] MEDS: VANCOMYCIN 1250 MG/NS 250 ML IVPB IV SCH ×6 (06:12→20:42)
[2020-11-01] MEDS: MEROPENEM 500 MG in WATER (STERILE) FOR INJECTION 10 ML IV SCH ×4 (06:12→23:29)
[2020-11-01 06:26] VITALS: BP 125/81
[2020-11-01] MEDS: dilTIAZem DRIP PRE-MIX 125 ML IV SCH (06:40)
[2020-11-01] MEDS ORDERED: ARTIFICIAL TEARS OINT (LACRI-LUBE) 3.5 GM TUBE OU PRN (07:15)
--- NOTE | 2020-11-01 07:33 | Diagnostic Imaging Report ---
INDICATION: COVID pneumonia. Ventilated patient. COMPARISON: 10/31/2020 FINDINGS: Single frontal radiographic view of the chest was obtained and demonstrates indwelling endotracheal tube with tip approximately 4 cm above the richardson. Gastric tube is also noted. Tip is obscured. Lungs continue to show dense opacity in the right perihilar region consistent with probable pneumonia. Left basilar infiltrate is also suspected. Overall, aeration is not significantly changed. There is no large effusion or pneumothorax. Cardiac silhouette remains mildly enlarged. Pulmonary vasculature is within normal limits. Left upper extremity PICC line is also seen. Tip of the PICC line however is also obscured. IMPRESSION: 1. Lines and tubes as above. 2. Cardiomegaly. 3. Stable bilateral infiltrates. Dictated by: Dictated on workstation # [id number]
[2020-11-01] MEDS: PANTOPRAZOLE 40 MG (PROTONIX) VIAL IV SCH (08:04)
[2020-11-01] MEDS: meTOprolol TARTRATE 50 MG (LOPRESSOR) TAB PO SCH ×2 (08:04→20:43)
[2020-11-01] MEDS: ASPIRIN 81 MG CHEW (CHILDREN'S ASA) PO SCH (08:04)
[2020-11-01] MEDS: MICONAZOLE NITRATE 2% CRM 30 GM TP SCH ×2 (08:05→20:44)
[2020-11-01] MEDS: APIXABAN 5 MG (ELIQUIS) TABLET PO SCH ×2 (08:05→20:43)
[2020-11-01] MEDS: MICONAZOLE 2% POWDER (DESENEX AF) 90 GM TOP SCH ×2 (08:05→20:43)
[2020-11-01 08:36] LABS: BILIRUBIN,URINE NEGATIVE (NEGATIVE); CLARITY,URINE SL CLOUDY; COLOR,URINE YELLOW; GLUCOSE, URINE (UA) 3+ (NEGATIVE); KETONES,URINE NEGATIVE (NEGATIVE); LEUKOCYTE ESTERASE ,URINE NEGATIVE (NEGATIVE); NITRITE,URINE NEGATIVE (NEGATIVE); PROTEIN,URINE NEGATIVE (NEGATIVE)
[2020-11-01] MEDS: 1/2 NS IV SOLUTION 1,000 ML IV SCH (08:39)
[2020-11-01 08:44] LABS: BACTERIA,URINE TRACE /HPF; RBC,URINE 0-2 /HPF; SQUAMOUS EPITHELIAL CELL,UR RARE /HPF; WBC,URINE RARE /HPF
[2020-11-01] MEDS: ARTIFICIAL TEARS OINT (LACRI-LUBE) 3.5 GM TUBE OU SCH ×2 (09:56→20:43)
--- NOTE | 2020-11-01 10:18 | NUR ---
UPDATE GIVEN TO [employer] VERIFIED
[2020-11-01 10:39] VITALS: BP 122/53
[2020-11-01] MEDS: fentaNYL DRIP PRE-MIX 250 ML IV SCH ×2 (11:28→19:04)
--- NOTE | 2020-11-01 12:58 | Cardiology Progress Note ---
Subjective Date Seen by Provider: Nov 01, 2020 Time Seen by Provider: 12:57 Subjective/Events-last exam patient is sedated and intubated, unable to provide any history Review of Systems General: Other (unable to provide review of systems) Focused Exam Lactate Level 11/01/20 06:08: Lactic Acid Level 0.75 Objective-Cardiology Exam Last Set of Vital Signs Vital Signs 11/01/20 11/01/20 11/01/20 11/01/20 06:00 06:41 08:41 10:39 Temp 37.5 Pulse 96 Resp 28 B/P (MAP) 127/78 Pulse Ox 95 O2 Delivery Mechanical Ventilator O2 Flow Rate 65.00 FiO2 50 Capillary Refill : Less Than 3 Seconds I&O Intake and Output 11/01/20 00:00 Intake Total 1955 ml Output Total 2900 ml Balance -945 ml Intake Oral 0 ml IV Total 1700 ml Tube Feeding 180 ml Other 75 ml Output Urine Total 2900 ml General: Other (sedated and intubated) HEENT: Atraumatic Heart: Other (atrial fibrillation) Neuro: Other (sedated and intubated) Psych/Mental Status: Other (sedated and intubated) Results Lab Laboratory Tests 11/01/20 03:21 A/P-Cardiology Admission Diagnosis Acute respiratory failure COVID-19 pneumonia Atrial fibrillation Diabetes mellitus Assessment/Plan respiratory failure, ventilatory dependent, managed by primary care team COVID-19 pneumonia, respiratory failure, managed by primary care team borderline hypotension, blood pressure is better at this time. Continue to monitor blood pressure paroxysmal atrial fibrillation, heart rate is better controlled. Continue to monitor [id number] score of 4, yearly risk of stroke without oral anticoagulation is 4.2 percent. Continue on oral anticoagulation if patient can tolerate the medication Diabetes mellitus, followed and managed by primary care physician Bronchial asthma/COPD, has been followed and managed by primary care physician. Obesity. Questionable sleep apnea. Clinical Quality Measures DVT/VTE Risk/Contraindication: Risk Factor Score Per Nursin RFS Level Per Nursing on Admit: 4+=Very High SWAPNIL PLUMMER MD Nov 01, 2020 12:58
[2020-11-01 14:16] VITALS: BP 117/78
[2020-11-01] MEDS: MIDAZOLAM DRIP PRE-MIX 100 ML IV SCH (15:07)
[2020-11-01 18:45] VITALS: BP 117/78
[2020-11-01 21:37] VITALS: BP 95/83
[2020-11-02 01:45] VITALS: BP 106/84
[2020-11-02] MEDS: RT-ALBUTEROL INHALER HFA (VENTOLIN HFA) 18 GM IH SCH ×6 (01:45→21:13)
[2020-11-02] MEDS: POTASSIUM CL 10MEQ/50ML IVPB 50 ML IV SCH (01:52)
[2020-11-02] MEDS: MAGNESIUM 1 GM/100 ML IVPB 100 ML IV SCH (01:52)
[2020-11-02] MEDS: KCL 20 MEQ TAB (K-DUR) PO SCH (01:53)
[2020-11-02 02:40] LABS: BASOPHILS % (AUTO) 0 % (0-10); EOSINOPHILS # (AUTO) 0.1 10^3/uL (0.0-0.3); EOSINOPHILS % (AUTO) 1 % (0-10); HEMATOCRIT 32 % (35-52); HEMOGLOBIN 9.9 g/dL (11.5-16.0); LYMPHOCYTES # (AUTO) 1.3 10^3/uL (1.0-4.0); LYMPHOCYTES % (AUTO) 17 % (12-44); MEAN CORPUSCULAR HEMOGLOBIN 32 pg (25-34); MEAN CORPUSCULAR HGB CONC 31 g/dL (32-36); MEAN CORPUSCULAR VOLUME 103 fL (80-99); MEAN PLATELET VOLUME 11.1 fL (9.0-12.2); MONOCYTES # (AUTO) 0.2 10^3/uL (0.0-1.0); MONOCYTES % (AUTO) 3 % (0-12); NEUTROPHILS # (AUTO) 5.9 10^3/uL (1.8-7.8); NEUTROPHILS % (AUTO) 76 % (42-75); PLATELET COUNT 309 10^3/uL (130-400); WHITE BLOOD COUNT 7.7 10^3/uL (4.3-11.0)
[2020-11-02 02:42] LABS: ABG BASE EXCESS 0.3 MMOL/L (-2.5-2.5); ABG OXYGEN SATURATION 97 % (94-100); ABG PCO2 33 MMHG (35-45); ABG PH 7.47 (7.37-7.43); ABG PO2 84 MMHG (79-93); ABG TCO2 24.7 MMOL/L (21.0-31.0)
[2020-11-02 02:43] LABS: ALLENS TEST YES-POS; INSPIRED O2 30%; PATIENT TEMP 36.5; VENTILATOR YES
[2020-11-02 02:51] LABS: CHLORIDE 113 MMOL/L (98-107); POTASSIUM 4.1 MMOL/L (3.6-5.0); SODIUM 146 MMOL/L (135-145)
[2020-11-02 02:53] LABS: CALCIUM 7.3 MG/DL (8.5-10.1); GLUCOSE 278 MG/DL (70-105)
[2020-11-02 02:55] LABS: CARBON DIOXIDE 23 MMOL/L (21-32)
[2020-11-02 02:57] LABS: CREATININE SERUM 0.55 MG/DL (0.60-1.30); GFR ESTIMATED > 60; PHOSPHORUS 2.7 MG/DL (2.3-4.7)
[2020-11-02 02:58] LABS: BUN/CREATININE RATIO 44
[2020-11-02 03:00] LABS: MAGNESIUM 2.4 MG/DL (1.6-2.4)
[2020-11-02] MEDS: fentaNYL DRIP PRE-MIX 250 ML IV SCH ×3 (03:23→22:36)
[2020-11-02] MEDS: dilTIAZem DRIP PRE-MIX 125 ML IV SCH ×2 (04:49→21:23)
--- NOTE | 2020-11-02 05:01 | Pulmonary Progress Note ---
Subjective Time Seen by a Provider: 04:55 Sepsis Event Evaluation Height, Weight, BMI Height: 5'4.00" Weight: 281lbs. 0.0oz. 127.208816ih; 74.00 BMI Method:Stated Focused Exam Lactate Level 11/01/20 06:08: Lactic Acid Level 0.75 Exam Exam Vital Signs Date Time Temp Pulse Resp B/P (MAP) Pulse Ox O2 Delivery O2 Flow Rate FiO2 11/02/20 04:48 Mechanical Ventilator 50.00 11/02/20 01:45 101 28 98 35 11/02/20 01:00 85 11/01/20 21:37 116 28 100 45 11/01/20 21:00 98 Mechanical Ventilator 45 11/01/20 20:00 36.6 93 28 118/103 100 Mechanical Ventilator 45.00 11/01/20 19:03 125 11/01/20 18:45 129 28 100 55 11/01/20 18:00 36.7 128 27 124/92 100 Mechanical Ventilator 65.00 11/01/20 17:00 36.6 109 28 117/95 98 Mechanical Ventilator 65.00 11/01/20 16:00 36.9 118 48 100/92 96 Mechanical Ventilator 65.00 11/01/20 15:07 129 28 102/86 11/01/20 15:00 37.2 113 28 102/86 90 Mechanical Ventilator 65.00 11/01/20 14:16 129 28 95 55 11/01/20 14:00 37.2 89 28 113/81 88 Mechanical Ventilator 65.00 11/01/20 13:00 37.3 96 28 105/84 89 Mechanical Ventilator 65.00 11/01/20 12:37 87 11/01/20 12:00 37.6 115 28 102/81 91 Mechanical Ventilator 65.00 11/01/20 11:00 37.8 88 27 111/79 92 Mechanical Ventilator 65.00 11/01/20 10:39 96 28 95 50 11/01/20 10:00 37.9 61 19 118/88 99 Mechanical Ventilator 65.00 11/01/20 09:00 37.8 86 28 113/88 99 Mechanical Ventilator 65.00 11/01/20 08:41 98 Mechanical Ventilator 65 11/01/20 08:00 37.7 111 28 116/94 93 Mechanical Ventilator 65.00 11/01/20 07:00 37.6 88 27 117/93 93 Mechanical Ventilator 65.00 11/01/20 06:42 103 11/01/20 06:41 Mechanical Ventilator 65.00 11/01/20 06:26 87 28 92 65 11/01/20 06:00 37.5 80 9 127/78 85 Mechanical Ventilator 50.00 11/01/20 05:30 Mechanical Ventilator 70.00 11/01/20 05:00 37.4 104 22 123/78 96 Mechanical Ventilator 50.00 I & O 11/02/20 07:00 Intake Total 330 ml Output Total 1375 ml Balance -1045 ml Height & Weight Height: 5'4.00" Weight: 281lbs. 0.0oz. 127.824374qx; 74.00 BMI Method:Stated General Appearance: Obese HEENT: PERRL/EOMI, TMs Normal Neck: Limited Range of Motion Respiratory: Normal Breath Sounds, No Accessory Muscle Use, No Respiratory Distress Cardiovascular: Irregularly Irregular, Tachycardia Capillary Refill: Less Than 3 Seconds Extremity: Pedal Edema, Swelling, Other (Anasarca) Neurologic/Psychiatric: Disoriented Skin: Normal Color, Warm/Dry Lymphatic: No Adenopathy Results Lab Laboratory Tests 11/01/20 03:21 11/02/20 02:15 Assessment/Plan Assessment/Plan Acute respiratory failure with ARDS secondary to COVID -Currently on Vent -Decrease VT to 420 and RR to to 26 -Currently on Fentanyl and Versed -Continue TF per dietary recs -Prone pt x 16hrs -Remdesivir, CVP -Decadron PNA with s. aureus Tm 39.2 last night - Merrem (multiple allergies) -Vanco - restarted on Sunday Tacycardia -Currently on Cardizem bacteremia with persistent fevers -Continue Merrem -Repeat BC pending -MRSA nasal swab is negative. Hyperglycemia -Change Levemir to 10units BID -Continue SSI C Hypernatremia -Change IVF to 1/2 NS -- increase to 75cc/hr - Monitor Anemia -Monitor Afib RVR -Eliquis -Cardiology Decrease phos -Replace Morbid obesity GI/DVT ppx -Eliquis - Protonix EDWIN REIS DO Nov 02, 2020 05:01
[2020-11-02] MEDS: MEROPENEM 500 MG in WATER (STERILE) FOR INJECTION 10 ML IV SCH ×3 (05:26→18:45)
[2020-11-02] MEDS: VANCOMYCIN 1250 MG/NS 250 ML IVPB IV SCH ×6 (05:26→21:10)
[2020-11-02] MEDS: inSUlin ASPART (NovoLOG) 1 UNIT/0.01 ML (CHARGE PER UNIT) SC SCH ×4 (05:27→21:10)
[2020-11-02 06:07] VITALS: BP 100/74
[2020-11-02 06:24] LABS: ABG BASE EXCESS 0.9 MMOL/L (-2.5-2.5); ABG OXYGEN SATURATION 96 % (94-100); ABG PCO2 38 MMHG (35-45); ABG PH 7.43 (7.37-7.43); ABG PO2 83 MMHG (79-93); ABG TCO2 25.9 MMOL/L (21.0-31.0)
[2020-11-02 06:27] LABS: ALLENS TEST YES-POS; INSPIRED O2 40%; PATIENT TEMP 37.2; VENTILATOR YES
--- NOTE | 2020-11-02 07:28 | Diagnostic Imaging Report ---
EXAMINATION: Chest 1 view HISTORY: COVID positive. Follow-up. COMPARISON: 11/01/2020. FINDINGS: The enteric tube appears retracted and terminates above the thoracic inlet; however, this may be projectional. An enteric tube is seen descending below the diaphragm with the tip in the stomach. A left PICC is visualized the tip overlying the right atrium. There is improved aeration in the bilateral lung bases with continued hazy opacities in the mid and lower lungs bilaterally. Stable cardiac silhouette. No large pleural effusion or pneumothorax. IMPRESSION: 1. Improved aeration in the lung bases with continued hazy opacities throughout the mid and lower lungs. 2. Possible retraction of the enteric tube; however, this may also be due to the projection of the chest x-ray. Consider repeat chest x-ray in a fully upright position to better evaluate. The left PICC and enteric tube are stable. Report was faxed to [facility] by yaneth at 7:27AM. Dictated by: Dictated on workstation # [id number]
[2020-11-02] MEDS: ARTIFICIAL TEARS OINT (LACRI-LUBE) 3.5 GM TUBE OU SCH ×2 (08:18→21:12)
[2020-11-02] MEDS: PANTOPRAZOLE 40 MG (PROTONIX) VIAL IV SCH (08:18)
[2020-11-02] MEDS: APIXABAN 5 MG (ELIQUIS) TABLET PO SCH ×2 (08:19→21:10)
[2020-11-02] MEDS: meTOprolol TARTRATE 50 MG (LOPRESSOR) TAB PO SCH ×2 (08:19→21:10)
[2020-11-02] MEDS: ASPIRIN 81 MG CHEW (CHILDREN'S ASA) PO SCH (08:19)
[2020-11-02] MEDS: MICONAZOLE 2% POWDER (DESENEX AF) 90 GM TOP SCH ×2 (08:21→21:12)
[2020-11-02] MEDS: MICONAZOLE NITRATE 2% CRM 30 GM TP SCH ×2 (08:21→21:12)
[2020-11-02 11:16] VITALS: BP 141/84
--- NOTE | 2020-11-02 11:59 | Cardiology Progress Note ---
Subjective Date Seen by Provider: Nov 02, 2020 Time Seen by Provider: 09:00 Subjective/Events-last exam patient is in bed, intubated and sedated Review of Systems General: Other (unable to provide review of systems) Focused Exam Lactate Level 11/01/20 06:08: Lactic Acid Level 0.75 Objective-Cardiology Exam Last Set of Vital Signs Vital Signs 11/02/20 11/02/20 11/02/20 11/02/20 06:00 08:29 09:37 11:16 Temp 36.9 Pulse 90 Resp 26 B/P (MAP) 100/74 Pulse Ox 94 O2 Delivery Mechanical Ventilator O2 Flow Rate 50.00 FiO2 50 Capillary Refill : Less Than 3 Seconds I&O Intake and Output 11/02/20 00:00 Intake Total 625 ml Output Total 2450 ml Balance -1825 ml Intake Oral 0 ml IV Total 395 ml Tube Feeding 180 ml Other 50 ml Output Urine Total 2450 ml General: Other (sedated and intubated) HEENT: Atraumatic Heart: Other (atrial fibrillation) Neuro: Other (sedated and intubated) Psych/Mental Status: Other (sedated and intubated) Results Lab Laboratory Tests 11/02/20 02:15 A/P-Cardiology Admission Diagnosis Acute respiratory failure COVID-19 pneumonia Atrial fibrillation Diabetes mellitus Assessment/Plan acute respiratory failure, ventilatory dependent, managed by primary care team COVID-19 pneumonia, respiratory failure, managed by primary care team borderline hypotension, blood pressure is better at this time. Continue to monitor blood pressure paroxysmal atrial fibrillation, heart rate is better controlled. Continue to monitor [id number] score of 4, yearly risk of stroke without oral anticoagulation is 4.2 percent. Continue on oral anticoagulation if patient can tolerate the medication Diabetes mellitus, followed and managed by primary care physician Bronchial asthma/COPD, has been followed and managed by primary care physician. Obesity. Questionable sleep apnea. Clinical Quality Measures DVT/VTE Risk/Contraindication: Risk Factor Score Per Nursin RFS Level Per Nursing on Admit: 4+=Very High SWAPNIL PLUMMER MD Nov 02, 2020 11:59
[2020-11-02] MEDS: MIDAZOLAM DRIP PRE-MIX 100 ML IV SCH (13:28)
[2020-11-02 14:21] VITALS: BP 117/78
[2020-11-02] MEDS: 1/2 NS IV SOLUTION 1,000 ML IV SCH ×2 (15:00→21:23)
--- NOTE | 2020-11-02 15:44 | NUR ---
Note pt is currently receiving TF of Pulmocare via bolus feeds of 60ml q4h with 60ml water flushes before and after each bolus. Clarisa GONZALEZ states pt is tolerating well. Recommend to Clarisa to increase to 75ml q4h and monitor for tolerance. Will continue to follow and reassess as pt needs, intake, and status change. Gaudencio RICHARDSON, MS RD LD [phone] CELL
[2020-11-02 18:38] VITALS: BP 160/102
[2020-11-02 21:13] VITALS: BP 118/88
[2020-11-03] MEDS: MEROPENEM 500 MG in WATER (STERILE) FOR INJECTION 10 ML IV SCH ×4 (00:08→17:57)
[2020-11-03 02:06] VITALS: BP 138/85
[2020-11-03] MEDS: RT-ALBUTEROL INHALER HFA (VENTOLIN HFA) 18 GM IH SCH ×6 (02:06→21:33)
[2020-11-03 03:57] LABS: BASOPHILS % (AUTO) 0 % (0-10); EOSINOPHILS # (AUTO) 0.2 10^3/uL (0.0-0.3); EOSINOPHILS % (AUTO) 2 % (0-10); HEMATOCRIT 32 % (35-52); HEMOGLOBIN 9.6 g/dL (11.5-16.0); LYMPHOCYTES # (AUTO) 1.4 10^3/uL (1.0-4.0); LYMPHOCYTES % (AUTO) 19 % (12-44); MEAN CORPUSCULAR HEMOGLOBIN 31 pg (25-34); MEAN CORPUSCULAR HGB CONC 30 g/dL (32-36); MEAN CORPUSCULAR VOLUME 102 fL (80-99); MEAN PLATELET VOLUME 10.9 fL (9.0-12.2); MONOCYTES # (AUTO) 0.2 10^3/uL (0.0-1.0); MONOCYTES % (AUTO) 3 % (0-12); NEUTROPHILS # (AUTO) 5.4 10^3/uL (1.8-7.8); NEUTROPHILS % (AUTO) 74 % (42-75); PLATELET COUNT 273 10^3/uL (130-400); WHITE BLOOD COUNT 7.3 10^3/uL (4.3-11.0)
[2020-11-03 04:08] LABS: ABG BASE EXCESS 1.8 MMOL/L (-2.5-2.5); ABG OXYGEN SATURATION 74 % (94-100); ABG PCO2 36 MMHG (35-45); ABG PH 7.46 (7.37-7.43); ABG PO2 42 MMHG (79-93); ABG TCO2 26.7 MMOL/L (21.0-31.0); ALLENS TEST YES-POS; INSPIRED O2 60%; PATIENT TEMP 36.3; VENTILATOR YES
[2020-11-03 04:13] LABS: CHLORIDE 112 MMOL/L (98-107); POTASSIUM 3.8 MMOL/L (3.6-5.0); SODIUM 143 MMOL/L (135-145)
[2020-11-03 04:14] LABS: CALCIUM 7.2 MG/DL (8.5-10.1); GLUCOSE 194 MG/DL (70-105)
[2020-11-03 04:16] LABS: CARBON DIOXIDE 23 MMOL/L (21-32)
[2020-11-03 04:18] LABS: CREATININE SERUM 0.48 MG/DL (0.60-1.30); GFR ESTIMATED > 60; PHOSPHORUS 3.2 MG/DL (2.3-4.7)
[2020-11-03 04:19] LABS: BUN/CREATININE RATIO 42
[2020-11-03 04:21] LABS: MAGNESIUM 2.4 MG/DL (1.6-2.4)
[2020-11-03] MEDS: KCL 20 MEQ TAB (K-DUR) PO SCH (04:22)
[2020-11-03] MEDS: POTASSIUM CL 10MEQ/50ML IVPB 50 ML IV SCH ×7 (04:22→10:44)
[2020-11-03] MEDS: MAGNESIUM 1 GM/100 ML IVPB 100 ML IV SCH (04:22)
--- NOTE | 2020-11-03 05:12 | Pulmonary Progress Note ---
Subjective Time Seen by a Provider: 05:11 Subjective/Events-last exam Sedated on vent. Sepsis Event Evaluation Height, Weight, BMI Height: 5'4.00" Weight: 281lbs. 0.0oz. 127.179185ae; 74.00 BMI Method:Stated Focused Exam Lactate Level 11/01/20 06:08: Lactic Acid Level 0.75 Exam Exam Vital Signs Date Time Temp Pulse Resp B/P (MAP) Pulse Ox O2 Delivery O2 Flow Rate FiO2 11/03/20 04:12 36.4 Mechanical Ventilator 50.00 11/03/20 03:00 36.3 26 132/85 (101) 98 Mechanical Ventilator 50.00 11/03/20 02:06 75 26 98 50 11/03/20 02:00 36.3 76 26 138/85 (102) 98 Mechanical Ventilator 50.00 11/03/20 01:00 36.6 67 26 131/93 (106) 97 Mechanical Ventilator 50.00 11/03/20 01:00 74 11/03/20 00:00 36.6 69 25 135/88 (104) 97 Mechanical Ventilator 50.00 11/03/20 00:00 36.5 Mechanical Ventilator 50.00 11/02/20 23:00 36.9 96 26 131/77 (95) 97 Mechanical Ventilator 50.00 11/02/20 22:00 36.9 71 25 143/83 (103) 98 Mechanical Ventilator 50.00 11/02/20 21:13 81 26 96 50 11/02/20 21:00 94 Mechanical Ventilator 50 11/02/20 21:00 36.7 94 25 118/88 (98) 96 Mechanical Ventilator 50.00 11/02/20 20:00 37.0 87 25 120/89 (99) 96 Mechanical Ventilator 50.00 11/02/20 20:00 36.7 Mechanical Ventilator 50.00 11/02/20 19:00 37.2 100 25 122/107 (112) 95 Mechanical Ventilator 50.00 11/02/20 19:00 100 11/02/20 18:38 104 26 95 50 11/02/20 18:00 37.5 126 25 118/100 (106) 95 Mechanical Ventilator 50.00 11/02/20 17:00 37.7 89 27 150/97 (114) 90 Mechanical Ventilator 50.00 11/02/20 16:00 37.7 102 26 107/78 (88) 93 Mechanical Ventilator 50.00 11/02/20 15:00 37.7 135 26 110/70 (83) 91 Mechanical Ventilator 50.00 11/02/20 14:21 135 26 92 50 11/02/20 14:00 37.7 131 25 127/112 (117) 92 Mechanical Ventilator 50.00 11/02/20 13:28 93 118/92 11/02/20 13:00 37.6 109 25 103/87 (92) 92 Mechanical Ventilator 50.00 11/02/20 12:57 110 11/02/20 12:00 37.6 117 26 158/123 (135) 93 Mechanical Ventilator 50.00 11/02/20 11:16 90 26 94 50 11/02/20 11:00 37.5 87 25 134/83 (100) 95 Mechanical Ventilator 50.00 11/02/20 10:00 37.6 109 25 121/98 (106) 93 Mechanical Ventilator 50.00 11/02/20 09:37 88 50.00 11/02/20 09:00 37.5 121 133/67 (89) 92 Mechanical Ventilator 45.00 11/02/20 08:29 92 Mechanical Ventilator 40 11/02/20 08:00 37.2 87 25 157/95 (115) 92 Mechanical Ventilator 45.00 11/02/20 07:00 37.2 118 25 92/77 (82) 91 Mechanical Ventilator 45.00 11/02/20 06:35 111 11/02/20 06:07 118 26 96 40 11/02/20 06:00 36.9 104 26 100/74 96 Mechanical Ventilator 45.00 I & O 11/03/20 07:00 Intake Total 3340.0 ml Output Total 1450 ml Balance 1890.0 ml Height & Weight Height: 5'4.00" Weight: 281lbs. 0.0oz. 127.049662nt; 74.00 BMI Method:Stated General Appearance: Obese HEENT: PERRL/EOMI, TMs Normal Neck: Limited Range of Motion Respiratory: Normal Breath Sounds, No Accessory Muscle Use, No Respiratory Distress Cardiovascular: Irregularly Irregular, Tachycardia Capillary Refill: Less Than 3 Seconds Extremity: Pedal Edema, Swelling, Other (Anasarca) Neurologic/Psychiatric: Disoriented Skin: Normal Color, Warm/Dry Lymphatic: No Adenopathy Results Lab Laboratory Tests 11/02/20 02:15 11/03/20 03:40 Assessment/Plan Assessment/Plan Acute respiratory failure with ARDS secondary to COVID -Currently on Vent -Decrease VT to 420 and RR to to 26 -Currently on Fentanyl and Versed -Continue TF per dietary recs -Prone pt x 16hrs -Give Lasix 40mg IV X 1 -Remdesivir, CVP -Decadron PNA with s. aureus Tm 39.2 last night - Merrem (multiple allergies) -Vanco - restarted on Sunday Tacycardia -Currently on Cardizem bacteremia with persistent fevers -Continue Merrem -Repeat BC pending -MRSA nasal swab is negative. Hyperglycemia -Change Levemir to 10units BID -Continue SSI C Hypernatremia -Change IVF to 1/2 NS -- increase to 75cc/hr - Monitor Anemia -Monitor Afib RVR -Eliquis -Cardiology Decrease phos -Replace Morbid obesity GI/DVT ppx -Eliquis - Protonix EDWIN REIS DO Nov 03, 2020 05:12
[2020-11-03] MEDS ORDERED: FUROSEMIDE 40 MG/4 ML INJ (LASIX) IVP ONE (05:15)
[2020-11-03] MEDS: dilTIAZem DRIP PRE-MIX 125 ML IV SCH ×3 (05:55→21:09)
[2020-11-03] MEDS: inSUlin ASPART (NovoLOG) 1 UNIT/0.01 ML (CHARGE PER UNIT) SC SCH ×3 (05:56→17:56)
[2020-11-03] MEDS: VANCOMYCIN 1250 MG/NS 250 ML IVPB IV SCH ×6 (06:14→21:09)
[2020-11-03] MEDS: MIDAZOLAM DRIP PRE-MIX 100 ML IV SCH ×2 (06:15→21:10)
[2020-11-03] MEDS: fentaNYL DRIP PRE-MIX 250 ML IV SCH ×4 (06:16→21:10)
[2020-11-03] MEDS: PANTOPRAZOLE 40 MG (PROTONIX) VIAL IV SCH (08:30)
[2020-11-03] MEDS: ASPIRIN 81 MG CHEW (CHILDREN'S ASA) PO SCH (08:30)
[2020-11-03] MEDS: APIXABAN 5 MG (ELIQUIS) TABLET PO SCH ×2 (08:31→21:08)
[2020-11-03] MEDS: meTOprolol TARTRATE 50 MG (LOPRESSOR) TAB PO SCH ×2 (08:31→21:08)
[2020-11-03] MEDS: MICONAZOLE 2% POWDER (DESENEX AF) 90 GM TOP SCH ×2 (08:32→21:10)
[2020-11-03] MEDS: MICONAZOLE NITRATE 2% CRM 30 GM TP SCH ×2 (08:32→21:11)
[2020-11-03] MEDS: ARTIFICIAL TEARS OINT (LACRI-LUBE) 3.5 GM TUBE OU SCH ×2 (08:33→21:09)
[2020-11-03 08:36] VITALS: BP 128/96
[2020-11-03 10:43] VITALS: BP 113/78
--- NOTE | 2020-11-03 12:05 | Diagnostic Imaging Report ---
Indication: Intubated patient. COMPARISON: 11/02/2020 FINDINGS: Single frontal radiograph view the chest was obtained and demonstrates indwelling endotracheal tube with tip at the level of clavicular heads. Gastric tube extends inferiorly beyond the [id number]. Left upper extremity PICC line is seen with tip in lower SVC. Lungs continue to show consolidative opacity adjacent to the minor fissure on the right minimal patchy airspace opacities also persist within both lung bases. Overall, aeration is stable. There is no large effusion or pneumothorax. Cardiac silhouette and pulmonary vasculature stable as well. Osseous structures are unchanged. IMPRESSION: 1. Lines and tubes as above. 2. Stable bilateral infiltrates. Dictated by: Dictated on workstation # [id number]
[2020-11-03 15:14] VITALS: BP 125/61
--- NOTE | 2020-11-03 15:25 | NUR ---
Note pt currently receiving Pulmocare via 75ml bolus feeds q4h, with 30ml water flushes before and after each bolus. Would recommend continuing at current regimen at this time. Will continue to follow and reassess as pt needs, intake, and status change. Gaudencio RICHARDSON, MS RD LD [phone] CELL
--- NOTE | 2020-11-03 16:05 | Physical Therapy Progress Note ---
Therapy Progress Note PROM B U/Le all planes. ROXANE LONGORIA PT Nov 03, 2020 16:05
[2020-11-03 18:55] VITALS: BP 121/83
[2020-11-03] MEDS: FAMOTIDINE 20MG/2ML IV (PEPCID) IV SCH (21:14)
[2020-11-03 21:33] VITALS: BP 128/74
[2020-11-04] MEDS: MEROPENEM 500 MG in WATER (STERILE) FOR INJECTION 10 ML IV SCH ×5 (00:49→23:36)
[2020-11-04] MEDS: inSUlin ASPART (NovoLOG) 1 UNIT/0.01 ML (CHARGE PER UNIT) SC SCH ×5 (00:49→22:55)
[2020-11-04 01:28] VITALS: BP 114/82
[2020-11-04] MEDS: RT-ALBUTEROL INHALER HFA (VENTOLIN HFA) 18 GM IH SCH ×5 (01:28→21:25)
[2020-11-04 03:21] LABS: ABG OXYGEN SATURATION 59 % (94-100); ABG PCO2 38 MMHG (35-45); ABG PH 7.44 (7.37-7.43); ABG PO2 40 MMHG (79-93); ABG TCO2 25.7 MMOL/L (21.0-31.0); BASOPHILS % (AUTO) 0 % (0-10); EOSINOPHILS # (AUTO) 0.1 10^3/uL (0.0-0.3); EOSINOPHILS % (AUTO) 1 % (0-10); HEMATOCRIT 32 % (35-52); HEMOGLOBIN 10.1 g/dL (11.5-16.0); LYMPHOCYTES # (AUTO) 1.2 10^3/uL (1.0-4.0); LYMPHOCYTES % (AUTO) 14 % (12-44); MEAN CORPUSCULAR HEMOGLOBIN 32 pg (25-34); MEAN CORPUSCULAR HGB CONC 32 g/dL (32-36); MEAN CORPUSCULAR VOLUME 102 fL (80-99); MEAN PLATELET VOLUME 10.9 fL (9.0-12.2); MONOCYTES # (AUTO) 0.3 10^3/uL (0.0-1.0); MONOCYTES % (AUTO) 3 % (0-12); NEUTROPHILS # (AUTO) 6.8 10^3/uL (1.8-7.8); NEUTROPHILS % (AUTO) 81 % (42-75); PLATELET COUNT 290 10^3/uL (130-400); WHITE BLOOD COUNT 8.4 10^3/uL (4.3-11.0)
[2020-11-04 03:32] LABS: ALLENS TEST POS; INSPIRED O2 25%; PATIENT TEMP 38.1; VENTILATOR YES
[2020-11-04 03:44] LABS: CHLORIDE 111 MMOL/L (98-107); SODIUM 139 MMOL/L (135-145)
[2020-11-04 03:45] LABS: CALCIUM 7.3 MG/DL (8.5-10.1)
[2020-11-04 03:46] LABS: GLUCOSE 217 MG/DL (70-105)
[2020-11-04 03:47] LABS: CARBON DIOXIDE 22 MMOL/L (21-32)
[2020-11-04 03:50] LABS: BUN/CREATININE RATIO 33; CREATININE SERUM 0.49 MG/DL (0.60-1.30); GFR ESTIMATED > 60
[2020-11-04 03:52] LABS: MAGNESIUM 2.2 MG/DL (1.6-2.4)
[2020-11-04] MEDS: VANCOMYCIN 1250 MG/NS 250 ML IVPB IV SCH ×2 (05:09)
[2020-11-04] MEDS: dilTIAZem DRIP PRE-MIX 125 ML IV SCH ×3 (05:14→21:33)
[2020-11-04] MEDS: fentaNYL DRIP PRE-MIX 250 ML IV SCH ×3 (05:14→21:34)
--- NOTE | 2020-11-04 05:59 | Pulmonary Progress Note ---
Subjective Time Seen by a Provider: 05:52 Subjective/Events-last exam Pt is sedated on vent. Sepsis Event Evaluation Height, Weight, BMI Height: 5'4.00" Weight: 281lbs. 0.0oz. 127.320650qi; 74.00 BMI Method:Stated Focused Exam Lactate Level 11/01/20 06:08: Lactic Acid Level 0.75 Exam Exam Vital Signs Date Time Temp Pulse Resp B/P (MAP) Pulse Ox O2 Delivery O2 Flow Rate FiO2 11/04/20 02:00 38.1 Mechanical Ventilator 25.00 11/04/20 02:00 75 25 99/76 (84) Mechanical Ventilator 25.00 11/04/20 01:28 86 26 94 25 11/04/20 01:00 84 25 118/69 (85) Mechanical Ventilator 25.00 11/04/20 00:00 38.1 Mechanical Ventilator 25.00 11/04/20 00:00 89 25 114/68 (83) Mechanical Ventilator 25.00 11/03/20 23:00 90 21 100/64 (76) Mechanical Ventilator 25.00 11/03/20 22:09 37.8 Mechanical Ventilator 25.00 11/03/20 22:00 96 20 113/85 (94) Mechanical Ventilator 30.00 11/03/20 21:33 93 26 97 30 11/03/20 21:10 112 11/03/20 21:00 94 Mechanical Ventilator 30 11/03/20 21:00 104 25 97/67 (77) Mechanical Ventilator 30.00 11/03/20 20:00 122 26 129/78 (95) Mechanical Ventilator 30.00 11/03/20 20:00 36.8 Mechanical Ventilator 30.00 11/03/20 19:22 36.3 11/03/20 19:00 98 29 131/85 (100) 95 Mechanical Ventilator 30.00 11/03/20 18:55 121 26 94 30 11/03/20 18:54 101 11/03/20 18:40 30.00 11/03/20 18:16 Mechanical Ventilator 40.00 11/03/20 18:00 96 26 109/84 (92) 100 Mechanical Ventilator 50.00 11/03/20 15:35 36.8 11/03/20 15:14 84 26 92 50 11/03/20 12:42 83 11/03/20 11:15 97 74 113/78 (90) 89 Mechanical Ventilator 50.00 11/03/20 10:43 81 26 92 50 11/03/20 10:00 36.4 78 25 124/87 (99) 97 Mechanical Ventilator 50.00 11/03/20 09:00 36.6 111 26 112/89 (97) 97 Mechanical Ventilator 50.00 11/03/20 08:36 100 26 97 50 11/03/20 08:35 94 Mechanical Ventilator 50 11/03/20 08:00 36.2 80 26 147/94 (111) 97 Mechanical Ventilator 50.00 11/03/20 07:00 36.5 106 139 147/94 (111) 105 Mechanical Ventilator 50.00 11/03/20 06:53 97 11/03/20 06:15 89 11/03/20 06:00 36.2 25 153/99 (117) 98 Mechanical Ventilator 50.00 I & O 11/04/20 07:00 Intake Total 3017.5 ml Output Total 3400 ml Balance -382.5 ml Height & Weight Height: 5'4.00" Weight: 281lbs. 0.0oz. 127.957217pj; 74.00 BMI Method:Stated General Appearance: Obese HEENT: PERRL/EOMI, TMs Normal Neck: Limited Range of Motion Respiratory: Normal Breath Sounds, No Accessory Muscle Use, No Respiratory Distress Cardiovascular: Irregularly Irregular, Tachycardia Capillary Refill: Less Than 3 Seconds Extremity: Pedal Edema, Swelling, Other (Anasarca) Neurologic/Psychiatric: Disoriented Skin: Normal Color, Warm/Dry Lymphatic: No Adenopathy Results Lab Laboratory Tests 11/03/20 03:40 11/04/20 02:55 Assessment/Plan Assessment/Plan Acute respiratory failure with ARDS secondary to COVID -Currently on Vent -Decrease VT to 420 and RR to to 26 -Decrease PEEP to 10 and Vt to 400. -Currently on Fentanyl and Versed -Continue TF per dietary recs -Prone pt x 16hrs -Give Lasix 40mg IV X 1 -Remdesivir, CVP -Decadron PNA with s. aureus Tm 39.2 last night - Merrem (multiple allergies) -Vanco - restarted on Sunday Tacycardia -Currently on Cardizem gtt bacteremia with persistent fevers -Continue Merrem -Repeat BC pending -MRSA nasal swab is negative. Hyperglycemia -Change Levemir to 10units BID -Continue SSI C Hypernatremia -Change IVF to 1/2 NS -- increase to 75cc/hr - Monitor Anemia -Monitor Afib RVR -Eliquis -Cardiology Decrease phos -Replace Morbid obesity GI/DVT ppx -Eliquis - Protonix EDWIN REIS DO Nov 04, 2020 05:59
[2020-11-04] MEDS: POTASSIUM CL 10MEQ/50ML IVPB 50 ML IV SCH (07:42)
[2020-11-04] MEDS: KCL 20 MEQ TAB (K-DUR) PO SCH (07:42)
[2020-11-04] MEDS: MAGNESIUM 1 GM/100 ML IVPB 100 ML IV SCH (07:42)
--- NOTE | 2020-11-04 07:55 | Diagnostic Imaging Report ---
INDICATION: COVID pneumonia. Comparison made to a prior examination 11/03/2020 FINDINGS: There is cardiomegaly. There is mild venous congestion. There is right perihilar atelectasis and pneumonitis and a more consolidated right upper lobe infiltrate. There is no pleural effusion or pneumothorax. ET and NG tubes are in satisfactory position. IMPRESSION: Right perihilar and right upper lobe infiltrate suspect for pneumonia. Mild cardiomegaly. Report was faxed to [facility] In[facility] by yaneth at 7:54am. Dictated by: Dictated on workstation # [id number]
[2020-11-04 08:20] VITALS: BP 101/85
[2020-11-04] MEDS: ASPIRIN 81 MG CHEW (CHILDREN'S ASA) PO SCH (08:23)
[2020-11-04] MEDS: FAMOTIDINE 20MG/2ML IV (PEPCID) IV SCH ×2 (08:23→21:00)
[2020-11-04] MEDS: ARTIFICIAL TEARS OINT (LACRI-LUBE) 3.5 GM TUBE OU SCH ×2 (08:24→21:02)
[2020-11-04] MEDS: meTOprolol TARTRATE 50 MG (LOPRESSOR) TAB PO SCH ×2 (08:24→21:00)
[2020-11-04] MEDS: APIXABAN 5 MG (ELIQUIS) TABLET PO SCH ×2 (08:24→21:00)
[2020-11-04] MEDS: MICONAZOLE 2% POWDER (DESENEX AF) 90 GM TOP SCH ×2 (08:24→21:02)
[2020-11-04] MEDS: MICONAZOLE NITRATE 2% CRM 30 GM TP SCH ×2 (08:25→21:03)
--- NOTE | 2020-11-04 08:53 | Cardiology Progress Note ---
Subjective Date Seen by Provider: Nov 04, 2020 Time Seen by Provider: 08:00 Subjective/Events-last exam patient is laying down in bed, sedated and intubated Review of Systems General: Other (unable to provide review of systems) Objective-Cardiology Exam Last Set of Vital Signs Vital Signs 11/04/20 11/04/20 11/04/20 11/04/20 01:28 02:00 06:26 08:33 Temp 37.9 Pulse 75 Resp 26 B/P (MAP) 99/76 (84) Pulse Ox 94 O2 Delivery Mechanical Ventilator O2 Flow Rate 40.00 FiO2 25 Capillary Refill : Less Than 3 Seconds I&O Intake and Output 11/04/20 00:00 Intake Total 3427.5 ml Output Total 3125 ml Balance 302.5 ml Intake Oral 0 ml IV Total 2962.5 ml Tube Feeding 225 ml Other 240 ml Output Urine Total 3125 ml General: Other (sedated and intubated) HEENT: Atraumatic Heart: Other (atrial fibrillation) Neuro: Other (sedated and intubated) Psych/Mental Status: Other (sedated and intubated) Results Lab Laboratory Tests 11/04/20 02:55 A/P-Cardiology Admission Diagnosis Acute respiratory failure COVID-19 pneumonia Atrial fibrillation Diabetes mellitus Assessment/Plan Acute respiratory failure, ventilatory dependent, managed by primary care team COVID-19 pneumonia, respiratory failure, managed by primary care team Borderline hypotension, blood pressure is better at this time. Continue to monitor blood pressure Paroxysmal atrial fibrillation, heart rate is better controlled. maintained on Cardizem drip, we discussed the possibility of switching her to oral, I am keeping her on Cardizem drip to adjusted drip according to her need if she have any weaning trials [id number] score of 4, yearly risk of stroke without oral anticoagulation is 4.2 percent. Continue on oral anticoagulation if patient can tolerate the medication Diabetes mellitus, followed and managed by primary care physician Bronchial asthma/COPD, has been followed and managed by primary care physician. Obesity. Questionable sleep apnea. Clinical Quality Measures DVT/VTE Risk/Contraindication: Risk Factor Score Per Nursin RFS Level Per Nursing on Admit: 4+=Very High SWAPNIL PLUMMER MD Nov 04, 2020 08:53
[2020-11-04 09:32] LABS: ABG BASE EXCESS 0.6 MMOL/L (-2.5-2.5); ABG OXYGEN SATURATION 93 % (94-100); ABG PCO2 38 MMHG (35-45); ABG PH 7.43 (7.37-7.43); ABG PO2 73 MMHG (79-93); ABG TCO2 25.4 MMOL/L (21.0-31.0)
[2020-11-04 09:36] LABS: ALLENS TEST YES-POS; INSPIRED O2 40%; VENTILATOR YES
[2020-11-04] MEDS: MIDAZOLAM DRIP PRE-MIX 100 ML IV SCH (13:16)
--- NOTE | 2020-11-04 13:24 | Physical Therapy Progress Note ---
Therapy Progress Note Pt intubated and sedated. PROM B U/LE in available planes. Assisted nursing to turn her to [facility]. ROXANE LONGORIA PT Nov 04, 2020 13:24
--- NOTE | 2020-11-04 14:52 | NUR ---
GERI UPDATED ON PTS STATUS VIA PHONE. NO QUESTIONS/CONCERNS VOICED.
[2020-11-04 15:05] VITALS: BP 126/97
--- NOTE | 2020-11-04 15:21 | NUR ---
Note pt is currently receiving Pulmocare via 75ml bolus feeds q4h with 30ml water flushes before and after each bolus. Pt appears to be tolerating when supine but not when prone, per Lashae RN. Discussed with Lashae about increasing to 90ml q4h when supine, but holding off TF while pt is prone. Will continue to follow and reassess as pt needs, intake, and status change. S ENMA RICHARDSON, MS RD LD
[2020-11-04 21:25] VITALS: BP 115/93
--- NOTE | 2020-11-04 23:03 | NUR ---
Benji given update on patient's status via phone.
[2020-11-05 01:49] VITALS: BP 110/71
[2020-11-05] MEDS: RT-ALBUTEROL INHALER HFA (VENTOLIN HFA) 18 GM IH SCH ×6 (01:49→22:46)
[2020-11-05 03:35] LABS: BASOPHILS % (AUTO) 0 % (0-10); EOSINOPHILS # (AUTO) 0.1 10^3/uL (0.0-0.3); EOSINOPHILS % (AUTO) 2 % (0-10); HEMATOCRIT 30 % (35-52); LYMPHOCYTES # (AUTO) 1.1 10^3/uL (1.0-4.0); LYMPHOCYTES % (AUTO) 17 % (12-44); MEAN CORPUSCULAR HEMOGLOBIN 33 pg (25-34); MEAN CORPUSCULAR HGB CONC 33 g/dL (32-36); MEAN CORPUSCULAR VOLUME 99 fL (80-99); MEAN PLATELET VOLUME 11.2 fL (9.0-12.2); MONOCYTES # (AUTO) 0.3 10^3/uL (0.0-1.0); MONOCYTES % (AUTO) 4 % (0-12); NEUTROPHILS # (AUTO) 5.2 10^3/uL (1.8-7.8); NEUTROPHILS % (AUTO) 77 % (42-75); PLATELET COUNT 265 10^3/uL (130-400); WHITE BLOOD COUNT 6.7 10^3/uL (4.3-11.0)
[2020-11-05 04:00] LABS: CHLORIDE 109 MMOL/L (98-107); POTASSIUM 3.9 MMOL/L (3.6-5.0); SODIUM 141 MMOL/L (135-145)
[2020-11-05 04:01] LABS: CALCIUM 7.3 MG/DL (8.5-10.1); GLUCOSE 160 MG/DL (70-105)
[2020-11-05 04:03] LABS: CARBON DIOXIDE 23 MMOL/L (21-32)
[2020-11-05 04:05] LABS: CREATININE SERUM 0.45 MG/DL (0.60-1.30); GFR ESTIMATED > 60; PHOSPHORUS 2.9 MG/DL (2.3-4.7)
[2020-11-05 04:06] LABS: BUN/CREATININE RATIO 29
[2020-11-05 04:08] LABS: MAGNESIUM 2.1 MG/DL (1.6-2.4)
[2020-11-05] MEDS: POTASSIUM CL 10MEQ/50ML IVPB 50 ML IV SCH (05:45)
[2020-11-05] MEDS: KCL 20 MEQ TAB (K-DUR) PO SCH (05:46)
[2020-11-05] MEDS: inSUlin ASPART (NovoLOG) 1 UNIT/0.01 ML (CHARGE PER UNIT) SC SCH ×3 (05:46→17:07)
[2020-11-05] MEDS: MAGNESIUM 1 GM/100 ML IVPB 100 ML IV SCH (05:46)
[2020-11-05] MEDS: MEROPENEM 500 MG in WATER (STERILE) FOR INJECTION 10 ML IV SCH ×4 (06:22→22:24)
[2020-11-05 06:46] VITALS: BP 118/90
[2020-11-05] MEDS: dilTIAZem DRIP PRE-MIX 125 ML IV SCH ×3 (07:06→22:22)
[2020-11-05] MEDS: fentaNYL DRIP PRE-MIX 250 ML IV SCH ×3 (07:06→22:20)
[2020-11-05] MEDS: MIDAZOLAM DRIP PRE-MIX 100 ML IV SCH ×2 (07:07→22:22)
--- NOTE | 2020-11-05 07:23 | Pulmonary Progress Note ---
Subjective Time Seen by a Provider: 07:17 Subjective/Events-last exam Sedated on vent. Sepsis Event Evaluation Height, Weight, BMI Height: 5'4.00" Weight: 281lbs. 0.0oz. 127.493165jz; 74.00 BMI Method:Stated Exam Exam Vital Signs Date Time Temp Pulse Resp B/P (MAP) Pulse Ox O2 Delivery O2 Flow Rate FiO2 11/05/20 07:07 124 17 122/105 11/05/20 06:46 109 24 92 25 11/05/20 01:49 93 24 96 30 11/05/20 01:00 87 11/04/20 22:00 38.1 11/04/20 21:25 107 24 98 40 11/04/20 21:17 94 Mechanical Ventilator 40 11/04/20 20:16 77 23 98 50 11/04/20 19:00 69 11/04/20 18:00 81 23 115/76 (89) 97 Mechanical Ventilator 40.00 11/04/20 17:00 96 23 111/82 (92) 97 Mechanical Ventilator 40.00 11/04/20 16:00 96 23 98/69 (79) 95 Mechanical Ventilator 40.00 11/04/20 15:51 Mechanical Ventilator 40.00 11/04/20 15:05 103 25 94 50 11/04/20 15:00 120 67 118/103 (108) 95 Mechanical Ventilator 50.00 11/04/20 14:00 123 24 122/86 (98) 90 Mechanical Ventilator 50.00 11/04/20 13:32 Mechanical Ventilator 50.00 11/04/20 13:16 89 23 93/59 11/04/20 13:00 82 24 98/67 (77) 94 Mechanical Ventilator 40.00 11/04/20 12:40 81 11/04/20 12:03 Mechanical Ventilator 60.00 11/04/20 12:00 86 24 87/62 (70) 95 Mechanical Ventilator 40.00 11/04/20 11:00 89 23 93/59 (70) 91 Mechanical Ventilator 40.00 11/04/20 10:00 73 23 108/67 (81) 91 Mechanical Ventilator 40.00 11/04/20 09:00 94 Mechanical Ventilator 40 11/04/20 09:00 84 24 85/73 (77) 91 Mechanical Ventilator 40.00 11/04/20 08:33 Mechanical Ventilator 40.00 11/04/20 08:20 85 24 92 40 11/04/20 08:00 74 25 97/79 (22) 94 Mechanical Ventilator 40.00 I & O 11/05/20 07:00 Intake Total 1912.5 ml Output Total 990 ml Balance 922.5 ml Height & Weight Height: 5'4.00" Weight: 281lbs. 0.0oz. 127.423421ki; 74.00 BMI Method:Stated General Appearance: Obese HEENT: PERRL/EOMI, TMs Normal Neck: Limited Range of Motion Respiratory: Normal Breath Sounds, No Accessory Muscle Use, No Respiratory Distress Cardiovascular: Irregularly Irregular, Tachycardia Capillary Refill: Less Than 3 Seconds Extremity: Pedal Edema, Swelling, Other (Anasarca) Neurologic/Psychiatric: Disoriented Skin: Normal Color, Warm/Dry Lymphatic: No Adenopathy Results Lab Laboratory Tests 11/04/20 02:55 11/05/20 03:07 Assessment/Plan Assessment/Plan Acute respiratory failure with ARDS secondary to COVID -Currently on Vent -Decrease VT to 420 and RR to to 26 - PEEP to 10 and Vt to 400. -Currently requiring 50% oxygen and peep 10 -Pt's Fi02 requirments improve while proned. -Currently on Fentanyl and Versed -Continue TF per dietary recs -reglan -Prone pt x 16hrs -Remdesivir, CVP -Decadron PNA - Merrem (multiple allergies) -Vanco - restarted on Sunday Tacycardia -Currently on Cardizem gtt bacteremia -Continue Merrem -Repeat BC pending -MRSA nasal swab is negative. Hyperglycemia -Change Levemir to 10units BID -Continue SSI C Hypernatremia -Change IVF to 1/2 NS -- increase to 75cc/hr - Monitor Anemia -Monitor Afib RVR -Eliquis -Cardiology Decrease phos -Replace Morbid obesity GI/DVT ppx -Eliquis - Protonix EDWIN REIS DO Nov 05, 2020 07:22
--- NOTE | 2020-11-05 07:52 | Diagnostic Imaging Report ---
INDICATION: Covid positive, shortness of breath. TECHNIQUE: Single view chest 7:07 AM. CORRELATION STUDY: 11/04/2020 FINDINGS: Endotracheal tube, gastric tube and left-sided central line all remain in place. Bilateral pulmonary opacities do persist particularly the right mid lung field. Heart size remains enlarged. Component of vascular congestion appears overall adversely changed. IMPRESSION: 1. Generally stable appearance about support lines and tubes. 2. Cardiac enlargement. Vasculature overall likely increased. 3. Bilateral pulmonary opacities persisting. Most pronounced in the right perihilar region suspect for infiltrate. Dictated by: Dictated on workstation # [id number]
[2020-11-05] MEDS: DOCUSATE SODIUM 10 MG/ML 10 ML UDC (COLACE) PO SCH ×2 (08:39→20:18)
[2020-11-05] MEDS: MICONAZOLE 2% POWDER (DESENEX AF) 90 GM TOP SCH ×2 (08:39→20:20)
[2020-11-05] MEDS: meTOprolol TARTRATE 50 MG (LOPRESSOR) TAB PO SCH ×2 (08:39→20:19)
[2020-11-05] MEDS: ASPIRIN 81 MG CHEW (CHILDREN'S ASA) PO SCH (08:39)
[2020-11-05] MEDS: APIXABAN 5 MG (ELIQUIS) TABLET PO SCH ×2 (08:39→20:19)
[2020-11-05] MEDS: FAMOTIDINE 20MG/2ML IV (PEPCID) IV SCH ×2 (08:39→20:19)
[2020-11-05] MEDS: ARTIFICIAL TEARS OINT (LACRI-LUBE) 3.5 GM TUBE OU SCH ×2 (08:40→20:20)
[2020-11-05] MEDS: MICONAZOLE NITRATE 2% CRM 30 GM TP SCH ×2 (08:40→20:20)
[2020-11-05] MEDS: LACTATED RINGERS 1,000 ML IV SCH (09:12)
[2020-11-05 09:19] LABS: ABG OXYGEN SATURATION 94 % (94-100); ABG PCO2 40 MMHG (35-45); ABG PO2 68 MMHG (79-93); ABG TCO2 25.4 MMOL/L (21.0-31.0)
[2020-11-05 09:24] LABS: ALLENS TEST YES-POS
[2020-11-05 09:25] LABS: INSPIRED O2 45%; PATIENT TEMP 37.3; VENTILATOR YES
[2020-11-05 10:38] VITALS: BP 96/73
--- NOTE | 2020-11-05 11:25 | Physical Therapy Progress Note ---
Therapy Progress Note Patient sedated and ventilated. PROM all extremities. ARTIE RAMIREZ PT Nov 05, 2020 11:25
--- NOTE | 2020-11-05 13:54 | NUR ---
Note pt currently intubated/sedated. Note pt currently receiving Pulmocare via 90ml bolus feeds q4h, with 30ml water flushes before and after each bolus. Recommend increase TF by 30ml q8h as tolerated, toward goal of 150ml bolus feeds q4h. Will continue to follow and reassess as pt needs, intake, and status change. Power Vieyra, MS RD [phone] cell
[2020-11-05 15:09] VITALS: BP 109/73
--- NOTE | 2020-11-05 15:39 | NUR ---
GERI UPDATED ON PTS STATUS VIA PHONE. NO QUESTIONS/CONCERNS VOICED.
--- NOTE | 2020-11-05 17:46 | Cardiology Progress Note ---
Cardiology SOAP Progress Note Subjective: Intubated/ventilated. Objective: I&O/Vital Signs 11/06/20 11/06/20 11/06/20 11/06/20 02:00 02:52 03:00 03:03 Temp 37.7 37.4 37.4 Pulse 100 108 98 Resp 23 24 23 B/P (MAP) 121/92 (102) 116/90 (99) Pulse Ox 93 93 93 O2 Delivery Mechanical Ventilator Mechanical Ventilator O2 Flow Rate 30.00 30.00 30.00 FiO2 30 11/06/20 11/06/20 11/06/20 11/06/20 04:00 05:00 05:09 06:00 Temp 37.4 37.3 37.1 Pulse 95 113 98 90 Resp 23 23 26 26 B/P (MAP) 118/88 (98) 113/69 (84) 119/73 (88) Pulse Ox 93 90 90 91 O2 Delivery Mechanical Ventilator Mechanical Ventilator Mechanical Ventilator O2 Flow Rate 30.00 30.00 30.00 11/06/20 11/06/20 11/06/20 11/06/20 06:10 06:15 06:30 06:45 Temp 37.1 37.1 37.1 37.1 Pulse 90 99 95 Resp 19 50 21 B/P (MAP) 119/73 (83) 119/69 (87) 111/67 (86) Pulse Ox 92 93 93 94 O2 Delivery Mechanical Ventilator Mechanical Ventilator Mechanical Ventilator O2 Flow Rate 30.00 30.00 30.00 30.00 11/06/20 11/06/20 11/06/20 11/06/20 06:45 07:00 07:00 07:15 Temp 37.1 37.1 Pulse 81 70 80 80 Resp 24 31 24 B/P (MAP) 101/77 (87) 109/77 (88) Pulse Ox 93 86 92 O2 Delivery Mechanical Ventilator Mechanical Ventilator O2 Flow Rate 30.00 30.00 FiO2 30 11/06/20 11/06/20 11/06/20 11/06/20 07:30 07:45 08:00 08:13 Temp 37.1 37.2 37.3 Pulse 85 75 112 Resp 24 36 B/P (MAP) 113/86 (89) 114/74 (80) 68/27 (32) Pulse Ox 89 92 86 85 O2 Delivery Mechanical Ventilator Mechanical Ventilator Mechanical Ventilator M echanical Ventilator O2 Flow Rate 30.00 30.00 30.00 100.00 11/06/20 11/06/20 11/06/20 11/06/20 08:15 08:21 08:25 08:30 Temp 37.3 37.3 Pulse 101 101 Resp 31 B/P (MAP) 98/84 (88) 101/73 (82) Pulse Ox 93 94 O2 Delivery Mechanical Ventilator Mechanical Ventilator Mechanical Ventilator O2 Flow Rate 100.00 90.00 90.00 FiO2 90 11/06/20 11/06/20 11/06/20 11/06/20 08:31 08:45 09:00 09:15 Temp 37.3 37.4 37.4 Pulse 88 80 85 Resp 31 B/P (MAP) 106/65 (73) 99/72 (79) 99/74 (85) Pulse Ox 94 94 91 O2 Delivery Mechanical Ventilator Mechanical Ventilator Mechanical Ventilator O2 Flow Rate 80.00 80.00 80.00 80.00 11/06/20 11/06/20 11/06/20 11/06/20 09:30 09:45 10:00 10:15 Temp 37.4 37.5 37.4 37.6 Pulse 81 77 81 103 Resp 23 36 B/P (MAP) 106/77 (82) 108/66 (75) 118/100 (106) 118/100 (108) Pulse Ox 91 91 92 93 O2 Delivery Mechanical Ventilator Mechanical Ventilator Mechanical Ventilator Mechanical Ventilator O2 Flow Rate 80.00 80.00 80.00 80.00 11/06/20 11/06/20 11/06/20 11/06/20 10:30 10:34 10:36 10:45 Temp 37.7 37.6 37.5 Pulse 89 99 92 99 Resp 38 30 26 B/P (MAP) 75/49 (52) 86/37 (42) 112/87 (95) Pulse Ox 97 97 96 96 O2 Delivery Mechanical Ventilator Mechanical Ventilator Mechanical Ventilator O2 Flow Rate 80.00 80.00 80.00 FiO2 70 11/06/20 11/06/20 11/06/20 11/06/20 11:00 11:01 11:15 11:30 Temp 37.6 37.6 37.5 Pulse 105 97 120 Resp 48 22 46 B/P (MAP) 106/88 (95) 114/85 (96) 120/82 (95) Pulse Ox 95 95 96 O2 Delivery Mechanical Ventilator Mechanical Ventilator Mechanical Ventilator O2 Flow Rate 80.00 60.00 60.00 60.00 11/06/20 11/06/20 11/06/20 11/06/20 11:45 12:00 12:03 13:00 Temp 37.5 37.5 Pulse 108 100 93 Resp 31 24 24 B/P (MAP) 114/85 (94) 122/82 (92) 103/75 Pulse Ox 95 96 O2 Delivery Mechanical Ventilator Mechanical Ventilator O2 Flow Rate 60.00 60.00 50.00 11/06/20 00:00 Intake Total 1165 ml Output Total 525 ml Balance 640 ml Weight (Pounds): 281 Weight (Ounces): 0.0 Weight (Calculated Kilograms): 127.234592 Constitutional: other (intubated and sedated) Cardiovascular: irregularly irregular, tachycardia Gastrointestional: round, distended Extremities: normal inspection Neurologic/Psychiatric: other (intubated/ventilated.) Results/Procedures: Labs Laboratory Tests 11/05/20 17:06: Glucometer 160H 11/06/20 00:10: Glucometer 138H 11/06/20 02:40: White Blood Count 5.9, Red Blood Count 3.01L, Hemoglobin 9.4L, Hematocrit 30L, Mean Corpuscular Volume 98, Mean Corpuscular Hemoglobin 31, Mean Corpuscular Hemoglobin Concent 32, Red Cell Distribution Width 13.6, Platelet Count 324, Mean Platelet Volume 10.9, Immature Granulocyte % (Auto) 1, Neutrophils (%) (Auto) 76H, Lymphocytes (%) (Auto) 17, Monocytes (%) (Auto) 5, Eosinophils (%) (Auto) 2, Basophils (%) (Auto) 0, Neutrophils # (Auto) 4.4, Lymphocytes # (Auto) 1.0, Monocytes # (Auto) 0.3, Eosinophils # (Auto) 0.1, Basophils # (Auto) 0.0, Immature Granulocyte # (Auto) 0.0, Blood Gas Puncture Site LEFT RADIAL, Blood Gas Patient Temperature 37.6, Arterial Blood pH 7.36L, Arterial Blood Partial Pressure CO2 48H, Arterial Blood Partial Pressure O2 53L, Arterial Blood HCO3 26, Arterial Blood Total CO2 27.4, Arterial Blood Oxygen Saturation 78L, Arterial Blood Base Excess 1.3, Hilario Test POSITIVE, Blood Gas Ventilator Setting YES, Blood Gas Inspired Oxygen 30, Sodium Level 137, Potassium Level 3.8, Chloride Level 105, Carbon Dioxide Level 23, Anion Gap 9, Blood Urea Nitrogen 10, Creatinine 0.42L, Estimat Glomerular Filtration Rate > 60, BUN/Creatinine Ratio 24, Glucose Level 165H, Calcium Level 7.4L, Phosphorus Level 3.1, Magnesium Level 1.9 11/06/20 11:41: Glucometer 136H Microbiology 11/01/20 Blood Culture - Preliminary, Resulted No growth 10/29/20 Catheter Tip Culture - Final, Complete No growth 10/25/20 Gram Stain - Final, Complete 10/25/20 Sputum Culture - Final, Complete Usual upper respiratory yissel Staphylococcus aureus Haemophilus influenza 10/25/20 Urine Culture - Final, Complete NO GROWTH A/P: Assessment/Dx: Acute respiratory failure due to COVID-19 pneumonia, ventilator dependent Hypotension likely secondary to sepsis, Anemia and leucopenia Atrial fibrillation with rapid ventricular response [id number] score of 4, yearly risk of stroke without oral anticoagulation is 4.2 percent. Continue on oral anticoagulation with Eliquis Diabetes mellitus, followed and managed by primary care physician Bronchial asthma/COPD Plan: Acute respiratory failure, ventilatory dependent, managed by primary care team COVID-19 pneumonia, respiratory failure, managed by primary care team Borderline hypotension, blood pressure is better at this time. Continue to monitor blood pressure Paroxysmal atrial fibrillation, heart rate is better controlled. maintained on Cardizem drip, we discussed the possibility of switching her to oral, I am keeping her on Cardizem drip to adjusted drip according to her need if she have any weaning trials [id number] score of 4, yearly risk of stroke without oral anticoagulation is 4.2 percent. Continue on oral anticoagulation if patient can tolerate the medication Diabetes mellitus, followed and managed by primary care physician Bronchial asthma/COPD, has been followed and managed by primary care physician. Obesity. Questionable sleep apnea. Thank you for your consultation. Please call me if you have any questions. Jada Urias MD, FACP, FACC, FSCAI, FHRS, CCDS Interventional Cardiology Cardiac Electrophysiology Vascular Medicine and Endovascular Interventions [place] URIAS MD Nov 05, 2020 17:46
[2020-11-05 19:22] VITALS: BP 121/91
--- NOTE | 2020-11-05 22:15 | NUR ---
Updated Benji (significant other) regarding patient's status.
[2020-11-05 22:47] VITALS: BP 119/79
[2020-11-06] MEDS: inSUlin ASPART (NovoLOG) 1 UNIT/0.01 ML (CHARGE PER UNIT) SC SCH ×5 (00:47→22:51)
[2020-11-06 02:52] VITALS: BP 121/106
[2020-11-06] MEDS: RT-ALBUTEROL INHALER HFA (VENTOLIN HFA) 18 GM IH SCH ×6 (02:52→21:34)
[2020-11-06 03:13] LABS: ABG BASE EXCESS 1.3 MMOL/L (-2.5-2.5); ABG OXYGEN SATURATION 78 % (94-100); ABG PCO2 48 MMHG (35-45); ABG PH 7.36 (7.37-7.43); ABG PO2 53 MMHG (79-93); ABG TCO2 27.4 MMOL/L (21.0-31.0)
[2020-11-06 03:15] LABS: ALLENS TEST POSITIVE; INSPIRED O2 30; PATIENT TEMP 37.6; VENTILATOR YES
[2020-11-06 03:16] LABS: BASOPHILS % (AUTO) 0 % (0-10); EOSINOPHILS # (AUTO) 0.1 10^3/uL (0.0-0.3); EOSINOPHILS % (AUTO) 2 % (0-10); HEMATOCRIT 30 % (35-52); HEMOGLOBIN 9.4 g/dL (11.5-16.0); LYMPHOCYTES % (AUTO) 17 % (12-44); MEAN CORPUSCULAR HEMOGLOBIN 31 pg (25-34); MEAN CORPUSCULAR HGB CONC 32 g/dL (32-36); MEAN CORPUSCULAR VOLUME 98 fL (80-99); MEAN PLATELET VOLUME 10.9 fL (9.0-12.2); MONOCYTES # (AUTO) 0.3 10^3/uL (0.0-1.0); MONOCYTES % (AUTO) 5 % (0-12); NEUTROPHILS # (AUTO) 4.4 10^3/uL (1.8-7.8); NEUTROPHILS % (AUTO) 76 % (42-75); PLATELET COUNT 324 10^3/uL (130-400); WHITE BLOOD COUNT 5.9 10^3/uL (4.3-11.0)
[2020-11-06 03:24] LABS: CHLORIDE 105 MMOL/L (98-107); POTASSIUM 3.8 MMOL/L (3.6-5.0); SODIUM 137 MMOL/L (135-145)
[2020-11-06 03:25] LABS: CALCIUM 7.4 MG/DL (8.5-10.1); GLUCOSE 165 MG/DL (70-105)
[2020-11-06 03:27] LABS: CARBON DIOXIDE 23 MMOL/L (21-32)
[2020-11-06 03:29] LABS: CREATININE SERUM 0.42 MG/DL (0.60-1.30); GFR ESTIMATED > 60; PHOSPHORUS 3.1 MG/DL (2.3-4.7)
[2020-11-06 03:30] LABS: BUN/CREATININE RATIO 24
[2020-11-06 03:31] LABS: MAGNESIUM 1.9 MG/DL (1.6-2.4)
[2020-11-06] MEDS: POTASSIUM CL 10MEQ/50ML IVPB 50 ML IV SCH (05:23)
[2020-11-06] MEDS: KCL 20 MEQ TAB (K-DUR) PO SCH (05:24)
[2020-11-06] MEDS: MAGNESIUM 1 GM/100 ML IVPB 100 ML IV SCH (05:24)
[2020-11-06] MEDS: MEROPENEM 500 MG in WATER (STERILE) FOR INJECTION 10 ML IV SCH ×4 (05:58→22:36)
[2020-11-06] MEDS: fentaNYL DRIP PRE-MIX 250 ML IV SCH ×3 (06:27→22:51)
[2020-11-06 06:45] VITALS: BP 111/67
--- NOTE | 2020-11-06 06:55 | Diagnostic Imaging Report ---
INDICATION: Shortness of breath. Comparison is made with prior examination from 11/05/2020. FINDINGS: Bilateral pulmonary infiltrates somewhat more consolidated in the right upper lobe. Right upper lobe consolidation is increased since prior examination. There also appears to be some superimposed atelectasis. There is no pneumothorax. IMPRESSION: Bilateral pulmonary infiltrates with increasing consolidation and atelectasis in the right upper lobe. There may also be some central pulmonary venous congestion. Dictated by: Dictated on workstation # [id number]
[2020-11-06] MEDS: LACTATED RINGERS 1,000 ML IV SCH (08:08)
[2020-11-06] MEDS: ARTIFICIAL TEARS OINT (LACRI-LUBE) 3.5 GM TUBE OU SCH ×2 (08:08→20:24)
[2020-11-06] MEDS: FAMOTIDINE 20MG/2ML IV (PEPCID) IV SCH ×2 (08:08→20:23)
[2020-11-06] MEDS: ASPIRIN 81 MG CHEW (CHILDREN'S ASA) PO SCH (08:09)
[2020-11-06] MEDS: APIXABAN 5 MG (ELIQUIS) TABLET PO SCH ×2 (08:09→20:23)
[2020-11-06] MEDS: meTOprolol TARTRATE 50 MG (LOPRESSOR) TAB PO SCH ×2 (08:09→20:24)
[2020-11-06] MEDS: DOCUSATE SODIUM 10 MG/ML 10 ML UDC (COLACE) PO SCH ×2 (08:09→20:24)
[2020-11-06] MEDS: MICONAZOLE 2% POWDER (DESENEX AF) 90 GM TOP SCH ×2 (08:09→20:24)
[2020-11-06] MEDS: MICONAZOLE NITRATE 2% CRM 30 GM TP SCH ×2 (08:10→20:25)
[2020-11-06] MEDS: dilTIAZem DRIP PRE-MIX 125 ML IV SCH ×2 (08:11→23:45)
[2020-11-06 10:36] VITALS: BP 86/37
--- NOTE | 2020-11-06 11:50 | Progress Note - Hospitalist ---
Subjective HPI/CC On Admission Date Seen by Provider: Nov 06, 2020 Time Seen by Provider: 11:00 CC: Respiratory failure due to COVID-19 PNA HPI: This is a 45 yoWF clinic patient of [facility] who presents to the ER with dyspnea and hypoxia and rapid heart rate. AF w/RVR dx and COVID swab was positive. Patient was placed in the ICU for Cardiology management with rate management drips and required hi-martina O2 then Vapotherm and then biPAP. She is tachypneic and pursed lip breathing and is struggling to breath and I talk to her about the ventilator and she is agreeable for the plan for intubation and supportive care. Subjective/Events-last exam Reviewed meds and labs Reviewed notes Conferred with RN Objective Exam Vital Signs Vital Signs Date Time Temp Pulse Resp B/P (MAP) Pulse Ox O2 Delivery O2 Flow Rate FiO2 11/07/20 06:00 37.7 103 24 92/69 (77) 95 Mechanical Ventilator 30.00 11/07/20 01:55 60 Capillary Refill : Less Than 3 Seconds General Appearance: No Apparent Distress, WD/WN, Chronically ill Respiratory: Lungs Clear Cardiovascular: Regular Rate, Rhythm Neurologic/Psychiatric: Other (sedated) Results/Procedures Lab Patient resulted labs reviewed. Imaging: Reviewed Imaging Films, Reviewed Imaging Report Assessment/Plan Assessment and Plan Assess & Plan/Chief Complaint Assessment: Respiratory failure requiring intubation due to failure on biPAP COVID-19 PNA AF w/RVR Hypoxia DM Obesity Plan: COVID-19 treatment Intubation Lovenox Monitor closely Cardiology consultation 10/24/20: Intubation Sedation management Monitor BP Prone schedule 10/25/20: Monitor closely Temperature management 11/06/20: Maintain vent Aggressive care continues Critical Care Critically Ill Patient Diagnosis/Problems Diagnosis/Problems (1) COVID-19 Status: Acute (2) Atrial fibrillation with RVR Status: Acute (3) Respiratory distress Status: Acute Clinical Quality Measures DVT/VTE Risk/Contraindication: Risk Factor Score Per Nursin RFS Level Per Nursing on Admit: 4+=Very High LAMIN PALACIO DO Nov 06, 2020 11:50
[2020-11-06] MEDS: MIDAZOLAM DRIP PRE-MIX 100 ML IV SCH (13:00)
[2020-11-06 14:52] VITALS: BP 102/71
[2020-11-06] MEDS ORDERED: FUROSEMIDE 40 MG/4 ML INJ (LASIX) IVP ONE (15:30)
[2020-11-06] MEDS: ACETAMINOPHEN 650 MG SUPP (TYLENOL) PR PRN (16:48)
[2020-11-06 20:05] VITALS: BP 111/82
[2020-11-06] MEDS: IPRATROPIUM INHALER (ATROVENT) 12.9 GM INH SCH (20:05)
[2020-11-06 21:35] VITALS: BP 95/80
[2020-11-07] MEDS: RT-ALBUTEROL INHALER HFA (VENTOLIN HFA) 18 GM IH SCH ×6 (01:54→22:28)
[2020-11-07 01:55] VITALS: BP 113/97
[2020-11-07 03:19] LABS: ABG BASE EXCESS 2.5 MMOL/L (-2.5-2.5); ABG OXYGEN SATURATION 93 % (94-100); ABG PCO2 41 MMHG (35-45); ABG PH 7.43 (7.37-7.43); ABG PO2 73 MMHG (79-93); ABG TCO2 27.6 MMOL/L (21.0-31.0)
[2020-11-07 03:29] LABS: ALLENS TEST POSITIVE; INSPIRED O2 60; PATIENT TEMP 37.5; VENTILATOR YES
[2020-11-07] MEDS: MIDAZOLAM DRIP PRE-MIX 100 ML IV SCH ×2 (05:03→21:06)
[2020-11-07] MEDS: MEROPENEM 500 MG in WATER (STERILE) FOR INJECTION 10 ML IV SCH ×4 (05:03→23:23)
[2020-11-07 07:09] VITALS: BP 85/55
[2020-11-07] MEDS: IPRATROPIUM INHALER (ATROVENT) 12.9 GM INH SCH ×4 (07:09→22:28)
[2020-11-07] MEDS: POTASSIUM CL 10MEQ/50ML IVPB 50 ML IV SCH ×6 (07:26→14:15)
[2020-11-07] MEDS: MAGNESIUM 1 GM/100 ML IVPB 100 ML IV SCH ×3 (07:26→15:21)
[2020-11-07] MEDS: inSUlin ASPART (NovoLOG) 1 UNIT/0.01 ML (CHARGE PER UNIT) SC SCH ×4 (07:26→23:12)
[2020-11-07] MEDS: KCL 20 MEQ TAB (K-DUR) PO SCH (07:26)
--- NOTE | 2020-11-07 08:21 | Diagnostic Imaging Report ---
CHEST 1 VIEW, AP/PA ONLY Indication: Intubation Comparison: 11/06/2020 Findings: Stable ET and enteric tubes. Right upper lobe consolidations with air bronchograms have improved but persist. Left basilar opacities are similar. No pleural effusion or pneumothorax. Stable cardiomediastinal silhouette. Stable left PICC. Impression: 1. Stable position of ET and enteric tubes. 2. Slight improved but persistent pulmonary consolidations. Dictated by: Dictated on workstation # [id number]
[2020-11-07] MEDS: DOCUSATE SODIUM 10 MG/ML 10 ML UDC (COLACE) PO SCH ×2 (08:24→21:07)
[2020-11-07] MEDS: APAP 325 MG/10.15 ML LIQ (TYLENOL) UDC PO PRN (08:25)
[2020-11-07] MEDS: ASPIRIN 81 MG CHEW (CHILDREN'S ASA) PO SCH (08:25)
[2020-11-07] MEDS: meTOprolol TARTRATE 50 MG (LOPRESSOR) TAB PO SCH ×2 (08:27→21:07)
[2020-11-07] MEDS: ARTIFICIAL TEARS OINT (LACRI-LUBE) 3.5 GM TUBE OU SCH ×2 (08:27→21:07)
[2020-11-07] MEDS: APIXABAN 5 MG (ELIQUIS) TABLET PO SCH ×2 (08:27→21:07)
[2020-11-07] MEDS: MICONAZOLE 2% POWDER (DESENEX AF) 90 GM TOP SCH ×2 (08:27→21:07)
[2020-11-07] MEDS: FAMOTIDINE 20MG/2ML IV (PEPCID) IV SCH ×2 (08:28→21:07)
[2020-11-07] MEDS: MICONAZOLE NITRATE 2% CRM 30 GM TP SCH ×2 (08:28→21:07)
[2020-11-07] MEDS: LACTATED RINGERS 1,000 ML IV SCH (08:29)
[2020-11-07] MEDS: fentaNYL DRIP PRE-MIX 250 ML IV SCH ×3 (08:47→21:42)
[2020-11-07 09:57] LABS: BASOPHILS % (AUTO) 0 % (0-10); EOSINOPHILS # (AUTO) 0.1 10^3/uL (0.0-0.3); EOSINOPHILS % (AUTO) 1 % (0-10); HEMATOCRIT 30 % (35-52); HEMOGLOBIN 9.6 g/dL (11.5-16.0); LYMPHOCYTES # (AUTO) 1.2 10^3/uL (1.0-4.0); LYMPHOCYTES % (AUTO) 24 % (12-44); MEAN CORPUSCULAR HEMOGLOBIN 31 pg (25-34); MEAN CORPUSCULAR HGB CONC 32 g/dL (32-36); MEAN CORPUSCULAR VOLUME 98 fL (80-99); MEAN PLATELET VOLUME 10.6 fL (9.0-12.2); MONOCYTES # (AUTO) 0.3 10^3/uL (0.0-1.0); MONOCYTES % (AUTO) 6 % (0-12); NEUTROPHILS # (AUTO) 3.4 10^3/uL (1.8-7.8); NEUTROPHILS % (AUTO) 69 % (42-75); PLATELET COUNT 339 10^3/uL (130-400)
[2020-11-07 10:02] LABS: ALBUMIN 2.3 GM/DL (3.2-4.5)
[2020-11-07 10:03] LABS: CHLORIDE 104 MMOL/L (98-107); POTASSIUM 3.5 MMOL/L (3.6-5.0); SODIUM 139 MMOL/L (135-145)
[2020-11-07 10:04] LABS: CALCIUM 7.4 MG/DL (8.5-10.1)
[2020-11-07 10:05] LABS: GLUCOSE 144 MG/DL (70-105); TOTAL PROTEIN 4.5 GM/DL (6.4-8.2)
[2020-11-07 10:06] LABS: CARBON DIOXIDE 24 MMOL/L (21-32)
[2020-11-07 10:07] LABS: BILIRUBIN,TOTAL 0.8 MG/DL (0.1-1.0)
[2020-11-07 10:08] LABS: ALKALINE PHOSPHATASE 42 U/L (40-136)
[2020-11-07 10:09] LABS: GFR ESTIMATED > 60
[2020-11-07 10:10] LABS: BUN/CREATININE RATIO 23
[2020-11-07 10:11] LABS: ALANINE AMINOTRANSFERASE 24 U/L (0-55)
[2020-11-07 11:06] VITALS: BP 99/66
[2020-11-07 11:14] LABS: PHOSPHORUS 2.9 MG/DL (2.3-4.7)
[2020-11-07 11:15] LABS: MAGNESIUM 1.7 MG/DL (1.6-2.4)
[2020-11-07] MEDS ORDERED: FUROSEMIDE 40 MG/4 ML INJ (LASIX) ONE (11:43)
--- NOTE | 2020-11-07 11:54 | Progress Note - Hospitalist ---
Subjective HPI/CC On Admission Date Seen by Provider: Nov 07, 2020 Time Seen by Provider: 11:00 CC: Respiratory failure due to COVID-19 PNA HPI: This is a 45 yoWF clinic patient of [facility] who presents to the ER with dyspnea and hypoxia and rapid heart rate. AF w/RVR dx and COVID swab was positive. Patient was placed in the ICU for Cardiology management with rate management drips and required hi-martina O2 then Vapotherm and then biPAP. She is tachypneic and pursed lip breathing and is struggling to breath and I talk to her about the ventilator and she is agreeable for the plan for intubation and supportive care. Subjective/Events-last exam No major issues Stability noted BP stable Checked meds and labs Objective Exam Vital Signs Vital Signs Date Time Temp Pulse Resp B/P (MAP) Pulse Ox O2 Delivery O2 Flow Rate FiO2 11/07/20 18:56 107 24 95 40 11/07/20 18:00 37.3 101/64 (72) Mechanical Ventilator 40.00 Capillary Refill : Less Than 3 Seconds General Appearance: No Apparent Distress, WD/WN, Chronically ill, Obese Respiratory: Lungs Clear Cardiovascular: Regular Rate, Rhythm Results/Procedures Lab Laboratory Tests 11/07/20 08:20 Patient resulted labs reviewed. Imaging: Reviewed Imaging Films, Reviewed Imaging Report Assessment/Plan Assessment and Plan Assess & Plan/Chief Complaint Assessment: Respiratory failure requiring intubation due to failure on biPAP COVID-19 PNA AF w/RVR Hypoxia DM Obesity Plan: COVID-19 treatment Intubation Lovenox Monitor closely Cardiology consultation 10/24/20: Intubation Sedation management Monitor BP Prone schedule 10/25/20: Monitor closely Temperature management 11/06/20: Maintain vent Aggressive care continues 11/07/20: Monitor O2 and BP Vent wean or Sunray Critical Care Critically Ill Patient Diagnosis/Problems Diagnosis/Problems (1) COVID-19 Status: Acute (2) Atrial fibrillation with RVR Status: Acute (3) Respiratory distress Status: Acute Clinical Quality Measures DVT/VTE Risk/Contraindication: Risk Factor Score Per Nursin RFS Level Per Nursing on Admit: 4+=Very High LAMIN PALACIO DO Nov 07, 2020 11:53
[2020-11-07] MEDS ORDERED: POTASSIUM CL 10MEQ/50ML IVPB 50 ML IV SCH (12:15)
[2020-11-07] MEDS ORDERED: MAGNESIUM 1 GM/100 ML IVPB 100 ML IV SCH (12:15)
[2020-11-07] MEDS ORDERED: FUROSEMIDE 40 MG/4 ML INJ (LASIX) IVP ONE (12:15)
--- NOTE | 2020-11-07 13:58 | Cardiology Progress Note ---
Cardiology SOAP Progress Note Subjective: Intubated/ventilated. Objective: I&O/Vital Signs 11/07/20 11/07/20 11/07/20 11/07/20 02:00 03:00 04:00 05:00 Temp 37.5 37.5 37.6 37.6 Pulse 96 112 91 117 Resp 24 22 23 24 B/P (MAP) 101/61 (74) 94/66 (75) 113/54 (73) 115/66 (82) Pulse Ox 95 95 97 95 O2 Delivery Mechanical Ventilator Mechanical Ventilator Mechanical Ventilator Mechanical Ventilator O2 Flow Rate 30.00 30.00 30.00 30.00 11/07/20 11/07/20 11/07/20 11/07/20 05:03 06:00 06:15 06:30 Temp 37.7 37.7 37.7 Pulse 112 103 113 129 Resp 24 23 B/P (MAP) 113/54 92/69 (77) 92/69 (74) 98/76 (79) Pulse Ox 95 93 91 O2 Delivery Mechanical Ventilator O2 Flow Rate 30.00 11/07/20 11/07/20 11/07/20 11/07/20 06:45 07:00 07:00 07:09 Temp 37.7 37.7 Pulse 120 129 102 120 Resp 24 B/P (MAP) 105/44 (58) 85/55 (63) Pulse Ox 95 O2 Delivery Mechanical Ventilator O2 Flow Rate 30.00 FiO2 40 11/07/20 11/07/20 11/07/20 11/07/20 07:15 07:30 07:45 07:56 Temp 37.7 37.7 37.6 37.6 Pulse 98 112 113 Resp 24 B/P (MAP) 81/69 (74) 82/63 (70) 87/65 (74) 100/75 (85) Pulse Ox 94 11/07/20 11/07/20 11/07/20 11/07/20 08:00 08:15 08:15 08:30 Temp 37.6 37.7 Pulse 133 Resp 17 B/P (MAP) 94/81 (86) 103/50 (62) Pulse Ox 90 87 O2 Delivery Mechanical Ventilator Mechanical Ventilator O2 Flow Rate 30.00 50.00 FiO2 40 11/07/20 11/07/20 11/07/20 11/07/20 08:30 08:45 08:46 09:00 Temp 37.7 37.8 37.8 Pulse 115 102 101 Resp 23 B/P (MAP) 89/68 (77) 79/55 (60) 92/59 (73) Pulse Ox 94 94 93 O2 Flow Rate 40.00 11/07/20 11/07/20 11/07/20 11/07/20 09:15 09:28 09:30 09:45 Temp 37.8 37.8 37.8 37.7 Pulse 110 89 91 Resp 24 B/P (MAP) 90/58 (71) 90/61 (79) 99/53 (62) Pulse Ox 94 90 90 11/07/20 11/07/20 11/07/20 11/07/20 10:00 10:15 10:30 10:45 Temp 37.6 37.3 37.2 37.1 Pulse 90 104 105 84 Resp B/P (MAP) 93/62 (82) 100/58 (76) 97/60 (69) 99/56 (65) Pulse Ox 93 92 93 92 O2 Delivery Mechanical Ventilator O2 Flow Rate 40.00 11/07/20 11/07/20 11/07/20 11/07/20 11:00 11:06 11:15 11:30 Temp 37 37 36.9 Pulse 101 101 101 115 Resp 24 B/P (MAP) 99/66 (72) 106/72 (80) 96/72 (76) Pulse Ox 92 91 96 96 O2 Delivery Mechanical Ventilator O2 Flow Rate 40.00 FiO2 40 11/07/20 11/07/20 11/07/20 11/07/20 11:45 12:00 12:15 12:30 Temp 37 37 37 37.1 Pulse 87 97 107 108 Resp 42 B/P (MAP) 93/61 (74) 96/61 (67) 106/76 (82) 114/75 (92) Pulse Ox 95 96 97 96 O2 Delivery Mechanical Ventilator O2 Flow Rate 40.00 11/07/20 11/07/20 11/07/20 12:37 12:45 13:00 Temp 37.2 37.2 Pulse 108 111 Resp 10 B/P (MAP) 107/79 (87) 104/59 (82) Pulse Ox 96 O2 Delivery Mechanical Ventilator O2 Flow Rate 40.00 11/07/20 00:00 Intake Total 1160 ml Output Total 2225 ml Balance -1065 ml Weight (Pounds): 281 Weight (Ounces): 0.0 Weight (Calculated Kilograms): 127.989183 Constitutional: other (intubated and sedated) Cardiovascular: irregularly irregular, tachycardia Gastrointestional: round, distended Extremities: normal inspection Neurologic/Psychiatric: other (intubated/ventilated.) Results/Procedures: Labs Laboratory Tests 11/06/20 17:27: Glucometer 161H 11/06/20 22:40: Glucometer 159H 11/07/20 02:50: Blood Gas Puncture Site RIGHT RADIAL, Blood Gas Patient Temperature 37.5, Arterial Blood pH 7.43, Arterial Blood Partial Pressure CO2 41, Arterial Blood Partial Pressure O2 73L, Arterial Blood HCO3 26, Arterial Blood Total CO2 27.6, Arterial Blood Oxygen Saturation 93L, Arterial Blood Base Excess 2.5, Hilario Test POSITIVE, Blood Gas Ventilator Setting YES, Blood Gas Inspired Oxygen 60 11/07/20 06:44: Glucometer 143H 11/07/20 08:20: White Blood Count 5.0, Red Blood Count 3.07L, Hemoglobin 9.6L, Hematocrit 30L, Mean Corpuscular Volume 98, Mean Corpuscular Hemoglobin 31, Mean Corpuscular Hemoglobin Concent 32, Red Cell Distribution Width 13.6, Platelet Count 339, Mean Platelet Volume 10.6, Immature Granulocyte % (Auto) 1, Neutrophils (%) (Auto) 69, Lymphocytes (%) (Auto) 24, Monocytes (%) (Auto) 6, Eosinophils (%) (Auto) 1, Basophils (%) (Auto) 0, Neutrophils # (Auto) 3.4, Lymphocytes # (Auto) 1.2, Monocytes # (Auto) 0.3, Eosinophils # (Auto) 0.1, Basophils # (Auto) 0.0, Immature Granulocyte # (Auto) 0.0, Sodium Level 139, Potassium Level 3.5L, Chloride Level 104, Carbon Dioxide Level 24, Anion Gap 11, Blood Urea Nitrogen 9, Creatinine 0.40L, Estimat Glomerular Filtration Rate > 60, BUN/Creatinine Ratio 23, Glucose Level 144H, Calcium Level 7.4L, Corrected Calcium 8.8, Phospho malika Level 2.9, Magnesium Level 1.7, Total Bilirubin 0.8, Aspartate Amino Transf (AST/SGOT) 18, Alanine Aminotransferase (ALT/SGPT) 24, Alkaline Phosphatase 42, Total Protein 4.5L, Albumin 2.3L 11/07/20 11:32: Glucometer 162H Microbiology 11/01/20 Blood Culture - Preliminary, Resulted No growth 10/29/20 Catheter Tip Culture - Final, Complete No growth 10/25/20 Gram Stain - Final, Complete 10/25/20 Sputum Culture - Final, Complete Usual upper respiratory yissel Staphylococcus aureus Haemophilus influenza 10/25/20 Urine Culture - Final, Complete NO GROWTH A/P: Assessment/Dx: Acute respiratory failure due to COVID-19 pneumonia, ventilator dependent Hypotension likely secondary to sepsis, Anemia and leucopenia Atrial fibrillation with rapid ventricular response [id number] score of 4, yearly risk of stroke without oral anticoagulation is 4 .2 percent. Continue on oral anticoagulation with Eliquis Diabetes mellitus, followed and managed by primary care physician Bronchial asthma/COPD Plan: Acute respiratory failure, ventilatory dependent, managed by primary care team COVID-19 pneumonia, respiratory failure, managed by primary care team Borderline hypotension, blood pressure is better at this time. Continue to monitor blood pressure Paroxysmal atrial fibrillation, with rapid ventricular rate. DC Cardizem. Increase Lopressor to 50 mg twice a day. [id number] score of 4, yearly risk of stroke without oral anticoagulation is 4.2 percent. Continue on oral anticoagulation if patient can tolerate the medication Diabetes mellitus, followed and managed by primary care physician Bronchial asthma/COPD, has been followed and managed by primary care physician. Obesity. Questionable sleep apnea. Thank you for your consultation. Please call me if you have any questions. Jada Urias MD, FACP, FACC, FSCAI, FHRS, CCDS Interventional Cardiology Cardiac Electrophysiology Vascular Medicine and Endovascular Interventions [place] URIAS MD Nov 07, 2020 13:58
[2020-11-07 14:31] VITALS: BP 89/69
[2020-11-07] MEDS: HYDROmorphone 2 MG/ML VIAL (DILAUDID) IV PRN (15:28)
[2020-11-07 18:56] VITALS: BP 97/38
[2020-11-07 22:29] VITALS: BP 97/38
[2020-11-08] MEDS: fentaNYL DRIP PRE-MIX 250 ML IV SCH ×5 (02:19→21:10)
[2020-11-08] MEDS: APAP 325 MG/10.15 ML LIQ (TYLENOL) UDC PO PRN ×2 (02:19→21:11)
[2020-11-08 02:38] VITALS: BP 110/60
[2020-11-08] MEDS: RT-ALBUTEROL INHALER HFA (VENTOLIN HFA) 18 GM IH SCH ×6 (02:38→21:24)
[2020-11-08] MEDS: LACTATED RINGERS 1,000 ML IV SCH (03:16)
[2020-11-08 03:24] LABS: BASOPHILS % (AUTO) 0 % (0-10); EOSINOPHILS # (AUTO) 0.1 10^3/uL (0.0-0.3); EOSINOPHILS % (AUTO) 2 % (0-10); HEMATOCRIT 30 % (35-52); HEMOGLOBIN 9.4 g/dL (11.5-16.0); LYMPHOCYTES # (AUTO) 1.2 10^3/uL (1.0-4.0); LYMPHOCYTES % (AUTO) 24 % (12-44); MEAN CORPUSCULAR HEMOGLOBIN 31 pg (25-34); MEAN CORPUSCULAR HGB CONC 31 g/dL (32-36); MEAN CORPUSCULAR VOLUME 99 fL (80-99); MEAN PLATELET VOLUME 10.5 fL (9.0-12.2); MONOCYTES # (AUTO) 0.3 10^3/uL (0.0-1.0); MONOCYTES % (AUTO) 6 % (0-12); NEUTROPHILS # (AUTO) 3.4 10^3/uL (1.8-7.8); NEUTROPHILS % (AUTO) 68 % (42-75); PLATELET COUNT 343 10^3/uL (130-400)
[2020-11-08 03:33] LABS: CHLORIDE 104 MMOL/L (98-107); POTASSIUM 3.8 MMOL/L (3.6-5.0); SODIUM 140 MMOL/L (135-145)
[2020-11-08 03:34] LABS: CALCIUM 7.5 MG/DL (8.5-10.1)
[2020-11-08 03:35] LABS: GLUCOSE 166 MG/DL (70-105)
[2020-11-08 03:36] LABS: ALLENS TEST POSITIVE; INSPIRED O2 50; PATIENT TEMP 38; VENTILATOR YES
[2020-11-08 03:36] LABS: CARBON DIOXIDE 26 MMOL/L (21-32)
[2020-11-08 03:39] LABS: CREATININE SERUM 0.42 MG/DL (0.60-1.30); GFR ESTIMATED > 60; PHOSPHORUS 3.2 MG/DL (2.3-4.7)
[2020-11-08 03:40] LABS: BUN/CREATININE RATIO 24
--- NOTE | 2020-11-08 04:34 | Pulmonary Progress Note ---
Subjective Time Seen by a Provider: 04:27 Subjective/Events-last exam Pt is sedated on vent. Sepsis Event Evaluation Height, Weight, BMI Height: 5'4.00" Weight: 281lbs. 0.0oz. 127.088569lr; 74.00 BMI Method:Stated Exam Exam Vital Signs Date Time Temp Pulse Resp B/P (MAP) Pulse Ox O2 Delivery O2 Flow Rate FiO2 11/08/20 02:38 111 24 89 40 11/08/20 02:19 38.2 11/08/20 01:00 101 11/08/20 00:00 38.0 105 24 99/77 (84) 91 Mechanical Ventilator 30.00 11/07/20 23:00 37.9 98 9 100/63 (75) 93 Mechanical Ventilator 30.00 11/07/20 22:57 38.0 82 24 93 Mechanical Ventilator 30.00 11/07/20 22:29 107 24 95 40 11/07/20 22:00 37.8 110 19 102/32 (55) 91 Mechanical Ventilator 40.00 11/07/20 21:30 Mechanical Ventilator 40.00 11/07/20 21:06 101 24 113/90 11/07/20 21:00 90 Mechanical Ventilator 40 11/07/20 21:00 37.6 86 23 113/90 (98) 96 Mechanical Ventilator 40.00 11/07/20 20:45 37.6 98 23 104/64 (73) 94 11/07/20 20:30 37.6 108 23 95/58 (69) 95 11/07/20 20:15 37.6 90 24 93/71 (76) 95 11/07/20 20:00 37.5 87 24 90/62 (69) 94 Mechanical Ventilator 40.00 11/07/20 19:45 37.5 95 23 96/61 (67) 94 11/07/20 19:30 37.5 98 23 88/48 (60) 94 11/07/20 19:15 37.5 106 23 102/45 (74) 93 11/07/20 19:00 37.4 102 17 104/82 (97) Mechanical Ventilator 40.00 11/07/20 19:00 102 11/07/20 18:56 107 24 95 40 11/07/20 18:00 37.3 122 24 101/64 (72) 96 Mechanical Ventilator 40.00 11/07/20 17:45 37.3 123 21 98/77 (82) 94 11/07/20 17:30 37.3 96 24 91/54 (66) 95 11/07/20 17:15 37.3 95 24 88/78 (83) 93 11/07/20 17:00 37.3 100 24 96/60 (67) 94 Mechanical Ventilator 40.00 11/07/20 16:45 37.3 123 24 103/54 (73) 94 11/07/20 16:30 37.3 114 23 97/65 (74) 92 11/07/20 16:15 37.3 124 24 107/69 (82) 89 11/07/20 16:00 37.2 122 24 99/64 (87) 92 Mechanical Ventilator 40.00 11/07/20 15:45 37.2 133 34 106/53 (70) 91 11/07/20 15:30 37.2 141 36 121/70 (80) 92 11/07/20 15:15 37.1 134 22 111/73 (88) 91 11/07/20 15:00 37.1 137 74 101/67 (85) 92 Mechanical Ventilator 40.00 11/07/20 14:45 37.1 120 0 103/59 (67) 92 11/07/20 14:31 125 24 93 40 11/07/20 14:30 37.1 115 9 89/69 (76) 96 11/07/20 14:15 37.1 137 32 99/56 (87) 96 11/07/20 14:00 37.2 117 16 108/51 (63) 97 Mechanical Ventilator 40.00 11/07/20 13:45 37.1 112 34 104/45 (76) 97 11/07/20 13:30 37.2 121 9 100/52 (69) 97 11/07/20 13:15 37.2 108 24 92/56 (73) 95 11/07/20 13:00 37.2 111 10 104/59 (82) 96 Mechanical Ventilator 40.00 11/07/20 12:45 37.2 107/79 (87) 11/07/20 12:37 108 11/07/20 12:30 37.1 108 42 114/75 (92) 96 11/07/20 12:15 37 107 23 106/76 (82) 97 11/07/20 12:00 37 97 23 96/61 (67) 96 Mechanical Ventilator 40.00 11/07/20 11:45 37 87 24 93/61 (74) 95 11/07/20 11:30 36.9 115 24 96/72 (76) 96 11/07/20 11:15 37 101 23 106/72 (80) 96 11/07/20 11:06 101 24 91 40 11/07/20 11:00 37 101 24 99/66 (72) 92 Mechanical Ventilator 40.00 11/07/20 10:45 37.1 84 24 99/56 (65) 92 11/07/20 10:30 37.2 105 24 97/60 (69) 93 11/07/20 10:15 37.3 104 24 100/58 (76) 92 11/07/20 10:00 37.6 90 24 93/62 (82) 93 Mechanical Ventilator 40.00 11/07/20 09:45 37.7 91 24 99/53 (62) 90 11/07/20 09:30 37.8 89 24 90/61 (79) 90 11/07/20 09:28 37.8 11/07/20 09:15 37.8 110 25 90/58 (71) 94 11/07/20 09:00 37.8 101 23 92/59 (73) 93 11/07/20 08:46 94 40.00 11/07/20 08:45 37.8 102 24 79/55 (60) 94 11/07/20 08:30 37.7 115 23 89/68 (77) 11/07/20 08:30 87 50.00 11/07/20 08:15 90 Mechanical Ventilator 40 11/07/20 08:15 37.7 103/50 (62) 11/07/20 08:00 37.6 133 17 94/81 (86) Mechanical Ventilator 30.00 11/07/20 07:56 37.6 100/75 (85) 11/07/20 07:45 37.6 113 24 87/65 (74) 11/07/20 07:30 37.7 112 24 82/63 (70) 11/07/20 07:15 37.7 98 23 81/69 (74) 94 11/07/20 07:09 120 24 95 40 11/07/20 07:00 102 11/07/20 07:00 37.7 129 24 85/55 (63) Mechanical Ventilator 30.00 11/07/20 06:45 37.7 120 24 105/44 (58) 11/07/20 06:30 37.7 129 23 98/76 (79) 91 11/07/20 06:15 37.7 113 23 92/69 (74) 93 11/07/20 06:00 37.7 103 24 92/69 (77) 95 Mechanical Ventilator 30.00 11/07/20 05:03 112 24 113/54 11/07/20 05:00 37.6 117 24 115/66 (82) 95 Mechanical Ventilator 30.00 I & O 11/08/20 07:00 Intake Total 2820 ml Output Total 2125 ml Balance 695 ml Height & Weight Height: 5'4.00" Weight: 281lbs. 0.0oz. 127.852343nl; 74.00 BMI Method:Stated General Appearance: No Apparent Distress, WD/WN, Chronically ill, Obese HEENT: PERRL/EOMI, TMs Normal Neck: Limited Range of Motion Respiratory: Lungs Clear Cardiovascular: Regular Rate, Rhythm Capillary Refill: Less Than 3 Seconds Extremity: Pedal Edema, Swelling, Other (Anasarca) Neurologic/Psychiatric: Other (sedated) Skin: Normal Color, Warm/Dry Lymphatic: No Adenopathy Results Lab Laboratory Tests 11/07/20 08:20 11/08/20 02:15 Assessment/Plan Assessment/Plan Acute respiratory failure with ARDS secondary to COVID -Currently on Vent -Intubated 10/22 -Decrease VT to 370 and RR to to 24 - PEEP to 10 and Vt to 370. RR 24 --increase PEEP to 12 -Currently requiring 50% oxygen and peep 10 -EICU managed pt through the weekend -Resume proning today secondary to increasing oxygen requirements. Pt is currently requiring 100% Fi02 -Currently on Fentanyl and Versed -Continue TF per dietary recs -reglan -Prone pt x 16hrs -Remdesivir, CVP -Decadron -Give lasix 40mg IV X 1 PNA with copious amounts of sputum production - Merrem (multiple allergies) -s/p Vanco - -Repeat cultures pending secondary to fever and sputum production Tacycardia -Currently on Cardizem gtt bacteremia -Continue Merrem -Repeat BC pending -MRSA nasal swab is negative. Hyperglycemia -Change Levemir to 10units BID -Continue SSI C Hypernatremia -Change IVF to 1/2 NS -- increase to 75cc/hr - Monitor Anemia -Monitor Afib RVR -Eliquis -Cardiology Decrease phos -Replace Morbid obesity GI/DVT ppx -Eliquis - Protonix EDWIN REIS DO Nov 08, 2020 04:34
[2020-11-08] MEDS ORDERED: FUROSEMIDE 40 MG/4 ML INJ (LASIX) ONE (04:43)
[2020-11-08 05:21] LABS: ABG PCO2 32 MMHG (35-45); ABG PH 7.53 (7.37-7.43); ABG PO2 67 MMHG (79-93); ABG TCO2 26.7 MMOL/L (21.0-31.0)
[2020-11-08 05:22] LABS: ABG BASE EXCESS 3.2 MMOL/L (-2.5-2.5); ABG OXYGEN SATURATION 92 % (94-100)
[2020-11-08] MEDS: POTASSIUM CL 10MEQ/50ML IVPB 50 ML IV SCH ×4 (05:28→06:33)
[2020-11-08] MEDS: KCL 20 MEQ TAB (K-DUR) PO SCH (05:48)
[2020-11-08] MEDS: MAGNESIUM 1 GM/100 ML IVPB 100 ML IV SCH (05:48)
[2020-11-08] MEDS: inSUlin ASPART (NovoLOG) 1 UNIT/0.01 ML (CHARGE PER UNIT) SC SCH ×3 (05:49→17:43)
[2020-11-08] MEDS: MEROPENEM 500 MG in WATER (STERILE) FOR INJECTION 10 ML IV SCH ×3 (06:02→17:40)
--- NOTE | 2020-11-08 07:19 | Diagnostic Imaging Report ---
EXAM: CHEST 1 VIEW, AP/PA ONLY INDICATION: Hypoxia. COMPARISON: Chest radiograph 11/07/2020. FINDINGS: Dense airspace opacities throughout both lungs. ETT tip at the level of the clavicles. NG tube tip in the stomach. Left PICC tip in the region of the confluence, previously in the low SVC. Heart size is obscured. No definite pleural effusion or pneumothorax. No acute osseous findings. IMPRESSION: 1. Dense airspace opacities persist throughout both lungs. 2. Left PICC has been withdrawn with the tip now in the region of the confluence. Dictated by: Dictated on workstation # [id number]
[2020-11-08] MEDS: meTOprolol TARTRATE 50 MG (LOPRESSOR) TAB PO SCH ×2 (07:58→21:10)
[2020-11-08] MEDS: DOCUSATE SODIUM 10 MG/ML 10 ML UDC (COLACE) PO SCH ×2 (07:58→21:10)
[2020-11-08] MEDS: ASPIRIN 81 MG CHEW (CHILDREN'S ASA) PO SCH (07:58)
[2020-11-08] MEDS: APIXABAN 5 MG (ELIQUIS) TABLET PO SCH ×2 (07:58→21:10)
[2020-11-08] MEDS: MICONAZOLE 2% POWDER (DESENEX AF) 90 GM TOP SCH ×2 (07:59→21:11)
[2020-11-08] MEDS: FAMOTIDINE 20MG/2ML IV (PEPCID) IV SCH ×2 (07:59→21:11)
[2020-11-08] MEDS: MICONAZOLE NITRATE 2% CRM 30 GM TP SCH ×2 (07:59→21:11)
[2020-11-08] MEDS: ARTIFICIAL TEARS OINT (LACRI-LUBE) 3.5 GM TUBE OU SCH ×2 (07:59→21:11)
--- NOTE | 2020-11-08 08:37 | NUR ---
CRYSTAL PICC RN, NOTIFIED TO CHECK PICC PLACEMENT ON TODAY XRAY RESULTS.
[2020-11-08] MEDS: IPRATROPIUM INHALER (ATROVENT) 12.9 GM INH SCH ×4 (09:07→18:22)
[2020-11-08 09:08] VITALS: BP 107/84
--- NOTE | 2020-11-08 09:08 | Cardiology Progress Note ---
Subjective Date Seen by Provider: Nov 08, 2020 Time Seen by Provider: 09:07 Subjective/Events-last exam patient is sedated and intubated Review of Systems General: Other (unable to provide review of systems) Objective-Cardiology Exam Last Set of Vital Signs Vital Signs 11/08/20 11/08/20 11/08/20 02:38 06:00 08:53 Temp 37.1 Pulse 99 Resp 23 B/P (MAP) 110/61 (77) Pulse Ox 94 O2 Delivery Mechanical Ventilator O2 Flow Rate 100.00 FiO2 40 Capillary Refill : Less Than 3 Seconds I&O Intake and Output 11/08/20 00:00 Intake Total 2970 ml Output Total 2450 ml Balance 520 ml Intake Oral 0 ml IV Total 1570 ml Tube Feeding 900 ml Other 500 ml Output Urine Total 2450 ml # Bowel Movements 1 General: Other (sedated and intubated) HEENT: Atraumatic Heart: Other (atrial fibrillation) Neuro: Other (sedated and intubated) Psych/Mental Status: Other (sedated and intubated) Results Lab Laboratory Tests 11/08/20 02:15 A/P-Cardiology Admission Diagnosis Acute respiratory failure COVID-19 pneumonia Atrial fibrillation Diabetes mellitus Assessment/Plan Acute respiratory failure, ventilatory dependent, prolonged intubation, managed by Dr. Melchor Paroxysmal atrial fibrillation, heart rate is better controlled on diltiazem drip, continue to monitor heart rate and blood pressure COVID-19 pneumonia, respiratory failure, managed by primary care team Borderline hypotension, blood pressure is better at this time. Continue to monitor blood pressure [id number] score of 4, yearly risk of stroke without oral anticoagulation is 4.2 percent. Continue on oral anticoagulation if patient can tolerate the medication Diabetes mellitus, followed and managed by primary care physician Bronchial asthma/COPD, has been followed and managed by primary care physician. Obesity. Questionable sleep apnea. Clinical Quality Measures DVT/VTE Risk/Contraindication: Risk Factor Score Per Nursin RFS Level Per Nursing on Admit: 4+=Very High SWAPNIL PLUMMER MD Nov 08, 2020 09:08
[2020-11-08] MEDS: MIDAZOLAM DRIP PRE-MIX 100 ML IV SCH ×2 (09:52→21:10)
[2020-11-08] MEDS: dilTIAZem DRIP PRE-MIX 125 ML IV SCH ×2 (09:52→21:09)
[2020-11-08 10:00] LABS: ABG BASE EXCESS 4.6 MMOL/L (-2.5-2.5); ABG OXYGEN SATURATION 81 % (94-100); ABG PCO2 51 MMHG (35-45); ABG PH 7.38 (7.37-7.43); ABG PO2 51 MMHG (79-93)
[2020-11-08 10:01] LABS: ALLENS TEST YES-POS; INSPIRED O2 100%; PATIENT TEMP 37.1; VENTILATOR YES
--- NOTE | 2020-11-08 11:48 | Physical Therapy Progress Note ---
Therapy Progress Note Pt in prone, PROM not performed this date. ROXANE LONGORIA PT Nov 08, 2020 11:48
--- NOTE | 2020-11-08 12:16 | NUR ---
DR REIS REVIEWED PICC LINE PLACEMENT VIA XRAY FROM EARLIER TODAY. OK TO CONTINUE TO USE PICC LINE UNTIL PT IS PLACED BACK TO SUPINE POSITION TOMORROW AM. PICC RN INFORMED PT WILL BE SUPINE FROM 0700-10AM TOMORROW TO RE--ADJUST LINE.
[2020-11-08 14:25] VITALS: BP 107/81
--- NOTE | 2020-11-08 15:19 | NUR ---
PT ETT WAS ADVANCE BY 2CM. PT IS NOW AT 25CM AT THE TEETH. Addendum: 11/08/20 at 1520 by VERA SALVADOR RT Amended: Links added.
--- NOTE | 2020-11-08 15:24 | Diagnostic Imaging Report ---
HISTORY: Endotracheal tube check, PICC line placement. COMPARISON: 11/08/2020. TECHNIQUE: Frontal view of the chest. FINDINGS: The endotracheal tube is about 4.3 cm above the richardson. An enteric tube crosses the eyfum-ii-acne. The left-sided PICC line tip projects over the right atrium near the inferior cavoatrial junction. Airspace opacities are seen throughout the lungs bilaterally, most pronounced in the right upper lobe and left lung base. Overall aeration appears similar to the prior study. No pleural effusion or pneumothorax is seen. The cardiac silhouette is obscured but appears stable in size. IMPRESSION: 1. The endotracheal tube is about 4 cm above the richardson. The left-sided PICC line projects over the right atrium. 2. Bilateral pulmonary airspace opacities with overall stable aeration since the prior exam. Dictated by: Dictated on workstation # [id number]
--- NOTE | 2020-11-08 15:41 | NUR ---
GERI UPDATED ON PTS STATUS VIA PHONE. NO QUESTIONS/CONCERNS VOICED.
--- NOTE | 2020-11-08 17:19 | NUR ---
Note pt is currently receiving Pulmocare via 150ml bolus feeds q4h with 30ml water flushes before/after each bolus. Note pt is currently at goal feeds. Will continue to follow and reassess as pt needs, intake, and status change. Power Vieyra, MS RD LD [phone] cell
--- NOTE | 2020-11-08 17:52 | NUR ---
med scanner has not been working during this rn's shift. unable to scan all meds.
[2020-11-08 18:22] VITALS: BP 111/95
[2020-11-08 21:25] VITALS: BP 104/83
[2020-11-09] MEDS: inSUlin ASPART (NovoLOG) 1 UNIT/0.01 ML (CHARGE PER UNIT) SC SCH ×4 (00:35→17:13)
[2020-11-09] MEDS: MEROPENEM 500 MG in WATER (STERILE) FOR INJECTION 10 ML IV SCH ×5 (00:45→23:48)
[2020-11-09 01:11] VITALS: BP 115/70
[2020-11-09] MEDS: RT-ALBUTEROL INHALER HFA (VENTOLIN HFA) 18 GM IH SCH ×6 (01:11→22:21)
[2020-11-09] MEDS: fentaNYL DRIP PRE-MIX 250 ML IV SCH ×6 (01:25→21:51)
[2020-11-09 03:33] LABS: BASOPHILS % (AUTO) 0 % (0-10); EOSINOPHILS # (AUTO) 0.1 10^3/uL (0.0-0.3); EOSINOPHILS % (AUTO) 2 % (0-10); HEMATOCRIT 30 % (35-52); LYMPHOCYTES % (AUTO) 26 % (12-44); MEAN CORPUSCULAR HEMOGLOBIN 30 pg (25-34); MEAN CORPUSCULAR HGB CONC 30 g/dL (32-36); MEAN CORPUSCULAR VOLUME 99 fL (80-99); MEAN PLATELET VOLUME 10.2 fL (9.0-12.2); MONOCYTES # (AUTO) 0.2 10^3/uL (0.0-1.0); MONOCYTES % (AUTO) 5 % (0-12); NEUTROPHILS # (AUTO) 2.7 10^3/uL (1.8-7.8); NEUTROPHILS % (AUTO) 67 % (42-75); PLATELET COUNT 326 10^3/uL (130-400)
[2020-11-09 03:44] LABS: ABG BASE EXCESS 6.6 MMOL/L (-2.5-2.5); ABG OXYGEN SATURATION 48 % (94-100); ABG PCO2 50 MMHG (35-45); ABG PH 7.41 (7.37-7.43); ABG TCO2 32.6 MMOL/L (21.0-31.0)
[2020-11-09 03:46] LABS: CHLORIDE 104 MMOL/L (98-107); POTASSIUM 3.7 MMOL/L (3.6-5.0); SODIUM 138 MMOL/L (135-145)
[2020-11-09 03:47] LABS: CALCIUM 7.7 MG/DL (8.5-10.1)
[2020-11-09 03:48] LABS: GLUCOSE 165 MG/DL (70-105)
[2020-11-09 03:49] LABS: ABG PO2 36 MMHG (79-93); ALLENS TEST YES-POS; INSPIRED O2 40%; PATIENT TEMP 37.3; VENTILATOR YES
[2020-11-09 03:49] LABS: CARBON DIOXIDE 28 MMOL/L (21-32)
[2020-11-09 03:51] LABS: PHOSPHORUS 3.1 MG/DL (2.3-4.7)
[2020-11-09 03:52] LABS: BUN/CREATININE RATIO 18; CREATININE SERUM 0.39 MG/DL (0.60-1.30); GFR ESTIMATED > 60
[2020-11-09 03:54] LABS: MAGNESIUM 1.8 MG/DL (1.6-2.4)
--- NOTE | 2020-11-09 04:40 | Pulmonary Progress Note ---
Subjective Time Seen by a Provider: 04:35 Subjective/Events-last exam Pt appears to be doing better this morning. Sepsis Event Evaluation Height, Weight, BMI Height: 5'4.00" Weight: 281lbs. 0.0oz. 127.159022sk; 74.00 BMI Method:Stated Exam Exam Vital Signs Date Time Temp Pulse Resp B/P (MAP) Pulse Ox O2 Delivery O2 Flow Rate FiO2 11/09/20 03:01 Mechanical Ventilator 40.00 11/09/20 01:11 76 24 96 50 11/09/20 01:00 37.4 80 24 115/70 (85) 96 Mechanical Ventilator 60.00 11/09/20 01:00 80 11/09/20 00:00 37.5 96 24 116/76 (89) 98 Mechanical Ventilator 60.00 11/08/20 23:00 37.8 75 23 114/74 (87) 97 Mechanical Ventilator 60.00 11/08/20 22:00 38.3 103 23 130/83 (99) 96 Mechanical Ventilator 60.00 11/08/20 21:41 38.3 11/08/20 21:25 106 24 97 60 11/08/20 21:11 38.2 11/08/20 21:10 112 24 130/96 11/08/20 21:00 97 Mechanical Ventilator 60 11/08/20 21:00 38.3 112 24 130/96 (107) 97 Mechanical Ventilator 60.00 11/08/20 20:00 38.2 112 24 101/80 (88) 95 Mechanical Ventilator 60.00 11/08/20 19:45 38 111 24 105/89 (100) 94 Mechanical Ventilator 60.00 11/08/20 19:30 38 101 23 115/87 (91) 94 Mechanical Ventilator 60.00 11/08/20 19:15 38 105 14 108/100 (103) 93 Mechanical Ventilator 60.00 11/08/20 19:00 38.0 109 24 119/94 (99) 93 Mechanical Ventilator 60.00 11/08/20 19:00 109 11/08/20 18:22 123 24 93 60 11/08/20 18:13 123 24 126/86 (99) 93 Mechanical Ventilator 60.00 11/08/20 17:44 Mechanical Ventilator 60.00 11/08/20 17:22 37.1 97 23 115/88 (97) 92 Mechanical Ventilator 80.00 11/08/20 16:00 37.1 86 23 119/109 (112) 91 Mechanical Ventilator 80.00 11/08/20 15:23 Mechanical Ventilator 80.00 11/08/20 15:00 37.1 105 15 97 Mechanical Ventilator 60.00 11/08/20 15:00 37.1 105 23 109/91 (97) 92 Mechanical Ventilator 60.00 11/08/20 14:25 81 24 94 60 11/08/20 14:00 37.1 76 15 107/84 (92) 97 Mechanical Ventilator 60.00 11/08/20 13:00 37.1 79 23 112/77 (89) 95 Mechanical Ventilator 60.00 11/08/20 12:31 65 11/08/20 12:00 37.1 78 23 106/85 (92) 93 Mechanical Ventilator 60.00 11/08/20 11:30 Mechanical Ventilator 60.00 11/08/20 11:00 37.1 83 24 115/87 (96) 96 Mechanical Ventilator 80.00 11/08/20 10:37 Mechanical Ventilator 80.00 11/08/20 10:00 37.1 92 56 95/77 (83) 95 Mechanical Ventilator 100.00 11/08/20 09:52 85 24 107/84 11/08/20 09:08 85 24 95 100 11/08/20 09:00 37.1 80 58 107/84 (92) 95 Mechanical Ventilator 100.00 11/08/20 09:00 95 Mechanical Ventilator 100 11/08/20 08:53 Mechanical Ventilator 100.00 11/08/20 08:00 37.1 92 65 107/56 (73) 93 Mechanical Ventilator 100.00 11/08/20 07:00 37.1 87 24 112/69 (83) 94 Mechanical Ventilator 100.00 11/08/20 06:39 90 11/08/20 06:00 37.1 99 23 110/61 (77) 94 Mechanical Ventilator 100.00 11/08/20 05:53 Mechanical Ventilator 100.00 11/08/20 05:00 37.4 105 23 105/80 (88) Mechanical Ventilator 30.00 I & O 11/09/20 07:00 Intake Total 2850 ml Output Total 1875 ml Balance 975 ml Height & Weight Height: 5'4.00" Weight: 281lbs. 0.0oz. 127.421910be; 74.00 BMI Method:Stated General Appearance: No Apparent Distress, WD/WN, Chronically ill, Obese HEENT: PERRL/EOMI, TMs Normal Neck: Limited Range of Motion Respiratory: Lungs Clear Cardiovascular: Regular Rate, Rhythm Capillary Refill: Less Than 3 Seconds Extremity: Pedal Edema, Swelling, Other (Anasarca) Neurologic/Psychiatric: Other (sedated) Skin: Normal Color, Warm/Dry Lymphatic: No Adenopathy Results Lab Laboratory Tests 11/07/20 08:20 11/08/20 02:15 11/09/20 03:07 Assessment/Plan Assessment/Plan Acute respiratory failure with ARDS secondary to COVID -Currently on Vent -Intubated 10/22 -Decrease VT to 370 and RR to to 24 - PEEP to 12 and Vt to 370. RR 24 currently 40% --decrease PEEP to 10 -Currently requiring 50% oxygen and peep 10 -EICU managed pt through the night -Pt is now down to 40% Fi02 after giving lasix yesterday. -will repeat lasix today and proceed with [facility]. -D/C proning -Currently on Fentanyl and Versed -Continue TF per dietary recs -reglan -Remdesivir, CVP -Decadron PNA with copious amounts of sputum production - Merrem (multiple allergies) -s/p Vanco - -Repeat cultures pending secondary to fever and sputum production Tacycardia -Currently on Cardizem gtt bacteremia -Continue Merrem -Repeat BC pending -MRSA nasal swab is negative. Hyperglycemia -Change Levemir to 10units BID -Continue SSI C Hypernatremia -Change IVF to 1/2 NS -- increase to 75cc/hr - Monitor Anemia -Monitor Afib RVR -Eliquis -Cardiology Decrease phos -Replace Morbid obesity GI/DVT ppx -Eliquis - Protonix EDWIN REIS DO Nov 09, 2020 04:40
[2020-11-09] MEDS ORDERED: FUROSEMIDE 40 MG/4 ML INJ (LASIX) IVP ONE (04:45)
[2020-11-09] MEDS: POTASSIUM CL 10MEQ/50ML IVPB 50 ML IV SCH ×4 (05:30→08:03)
[2020-11-09] MEDS: KCL 20 MEQ TAB (K-DUR) PO SCH (05:56)
[2020-11-09] MEDS: MAGNESIUM 1 GM/100 ML IVPB 100 ML IV SCH (05:56)
[2020-11-09] MEDS: MIDAZOLAM DRIP PRE-MIX 100 ML IV SCH ×2 (06:26→16:06)
--- NOTE | 2020-11-09 07:15 | NUR ---
[facility] AT [facility] NOTIFIED OF DR REIS'S [place] TRANSFER REQUEST.
[2020-11-09] MEDS: FAMOTIDINE 20MG/2ML IV (PEPCID) IV SCH ×2 (08:03→19:52)
[2020-11-09] MEDS: LACTATED RINGERS 1,000 ML IV SCH (08:03)
[2020-11-09] MEDS: APIXABAN 5 MG (ELIQUIS) TABLET PO SCH ×2 (08:04→19:51)
[2020-11-09] MEDS: ASPIRIN 81 MG CHEW (CHILDREN'S ASA) PO SCH (08:04)
[2020-11-09] MEDS: MICONAZOLE 2% POWDER (DESENEX AF) 90 GM TOP SCH ×2 (08:04→19:53)
[2020-11-09] MEDS: MICONAZOLE NITRATE 2% CRM 30 GM TP SCH ×2 (08:04→19:53)
[2020-11-09] MEDS: ARTIFICIAL TEARS OINT (LACRI-LUBE) 3.5 GM TUBE OU SCH ×2 (08:04→19:52)
[2020-11-09] MEDS: DOCUSATE SODIUM 10 MG/ML 10 ML UDC (COLACE) PO SCH ×2 (08:04→19:52)
[2020-11-09] MEDS: meTOprolol TARTRATE 50 MG (LOPRESSOR) TAB PO SCH ×2 (08:04→19:51)
[2020-11-09 08:51] VITALS: BP 97/60
--- NOTE | 2020-11-09 08:55 | Diagnostic Imaging Report ---
Post erect AP chest at 0229h. INDICATION: Hypoxia The heart size is stable when compared to the prior exam of 11/08/2020. The diffuse alveolar/interstitial pulmonary infiltrates involving both lungs seen previously are again evident and no different. The mediastinum is not widened. The osseous structures are intact. The supportive tubes and lines seen previously are again evident and similar in position. The ET tube tip lies at the thoracic inlet. IMPRESSION: Stable chest. There has been no adverse change since the prior exam. Dictated by: Dictated on workstation # [id number]
--- NOTE | 2020-11-09 09:02 | Cardiology Progress Note ---
Subjective Date Seen by Provider: Nov 09, 2020 Time Seen by Provider: 09:01 Subjective/Events-last exam patient is laying down in bed, sedated and intubated Review of Systems General: Other (unable to provide review of systems) Objective-Cardiology Exam Last Set of Vital Signs Vital Signs 11/09/20 11/09/20 11/09/20 11/09/20 01:11 06:00 06:26 08:33 Temp 37.3 Pulse 101 Resp 24 B/P (MAP) 109/83 Pulse Ox 92 O2 Delivery Mechanical Ventilator O2 Flow Rate 40.00 FiO2 50 Capillary Refill : Less Than 3 Seconds I&O Intake and Output 11/09/20 00:00 Intake Total 3490 ml Output Total 2675 ml Balance 815 ml Intake Oral 0 ml IV Total 1820 ml Tube Feeding 900 ml Other 770 ml Output Urine Total 2675 ml General: Other (sedated and intubated) HEENT: Atraumatic Heart: Other (atrial fibrillation) Neuro: Other (sedated and intubated) Psych/Mental Status: Other (sedated and intubated) Results Lab Laboratory Tests 11/09/20 03:07 A/P-Cardiology Admission Diagnosis Acute respiratory failure COVID-19 pneumonia Atrial fibrillation Diabetes mellitus Assessment/Plan Acute respiratory failure, ventilatory dependent, prolonged intubation, discussed the possibility of tracheostomy, managed by Dr. Melchor Paroxysmal atrial fibrillation, heart rate is better controlled on diltiazem drip, continue to monitor heart rate and blood pressure COVID-19 pneumonia, respiratory failure, managed by primary care team Borderline hypotension, blood pressure is better at this time. Continue to monitor blood pressure [id number] score of 4, yearly risk of stroke without oral anticoagulation is 4.2 percent. Continue on oral anticoagulation if patient can tolerate the medication Diabetes mellitus, followed and managed by primary care physician Bronchial asthma/COPD, has been followed and managed by primary care physician. Obesity. Questionable sleep apnea. Clinical Quality Measures DVT/VTE Risk/Contraindication: Risk Factor Score Per Nursin RFS Level Per Nursing on Admit: 4+=Very High SWAPNIL PLUMMER MD Nov 09, 2020 09:02
[2020-11-09] MEDS: IPRATROPIUM INHALER (ATROVENT) 12.9 GM INH SCH ×4 (09:13→18:29)
[2020-11-09] MEDS: dilTIAZem DRIP PRE-MIX 125 ML IV SCH ×2 (09:34→19:51)
--- NOTE | 2020-11-09 10:17 | NUR ---
PEEP INCREASED TO [address] REIS'S ORDER.
--- NOTE | 2020-11-09 10:25 | Diagnostic Imaging Report ---
HISTORY: ET tube placement COMPARISON: 11/09/2020 TECHNIQUE: Frontal view of the chest. FINDINGS: The endotracheal tube is about 3 cm above the richardson. The enteric tube tip projects over the distal stomach. There are airspace opacities in the lung bases, left greater than right, and in the right upper lobe. Overall aeration appears improved compared to the prior study, may at least in part be due to better inspiration. The cardiac silhouette is stable in size. No pleural effusion or pneumothorax is seen. IMPRESSION: 1. The endotracheal tube is about 3 cm above the richardson. 2. Bilateral pulmonary airspace opacities, appear improved compared to the prior exam. Dictated by: Dictated on workstation # [id number]
--- NOTE | 2020-11-09 10:27 | Physical Therapy Progress Note ---
Therapy Progress Note PROM bilateral extremities all planes in supine with repositioning. Restraints in place bilateral UE. ARTIE RAMIREZ PT Nov 09, 2020 10:27
--- NOTE | 2020-11-09 11:58 | NUR ---
CM/SS: [facility] contacted this worker per request of Dr. Melchor. Referral information is faxed to [facility] - fax [phone].
--- NOTE | 2020-11-09 14:56 | NUR ---
GERI UPDATED ON PTS STATUS VIA PHONE. NO QUESTIONS/CONCERNS VOICED.
[2020-11-09 15:01] VITALS: BP 107/67
--- NOTE | 2020-11-09 15:43 | NUR ---
Note pt currently receiving Pulmocare via 150ml bolus feeds q4h with 30ml water flushes before/after each bolus. Note pt is at goal feeding at this time. Will continue to follow and reassess as pt needs, intake, and status change. Power Vieyra, MS RD LD [phone] cell
[2020-11-09 18:30] VITALS: BP 107/85
[2020-11-09] MEDS: APAP 325 MG/10.15 ML LIQ (TYLENOL) UDC PO PRN (21:51)
[2020-11-09 22:21] VITALS: BP 119/89
[2020-11-10] MEDS: inSUlin ASPART (NovoLOG) 1 UNIT/0.01 ML (CHARGE PER UNIT) SC SCH ×5 (00:21→23:23)
[2020-11-10] MEDS: MIDAZOLAM DRIP PRE-MIX 100 ML IV SCH ×4 (02:08→22:59)
[2020-11-10] MEDS: fentaNYL DRIP PRE-MIX 250 ML IV SCH ×5 (02:09→19:54)
[2020-11-10 02:18] VITALS: BP 123/89
[2020-11-10] MEDS: RT-ALBUTEROL INHALER HFA (VENTOLIN HFA) 18 GM IH SCH ×6 (02:18→22:15)
[2020-11-10 03:24] LABS: BASOPHILS % (AUTO) 0 % (0-10); EOSINOPHILS # (AUTO) 0.1 10^3/uL (0.0-0.3); EOSINOPHILS % (AUTO) 2 % (0-10); HEMATOCRIT 30 % (35-52); HEMOGLOBIN 9.1 g/dL (11.5-16.0); LYMPHOCYTES # (AUTO) 1.3 10^3/uL (1.0-4.0); LYMPHOCYTES % (AUTO) 26 % (12-44); MEAN CORPUSCULAR HEMOGLOBIN 30 pg (25-34); MEAN CORPUSCULAR HGB CONC 30 g/dL (32-36); MEAN CORPUSCULAR VOLUME 100 fL (80-99); MEAN PLATELET VOLUME 9.8 fL (9.0-12.2); MONOCYTES # (AUTO) 0.3 10^3/uL (0.0-1.0); MONOCYTES % (AUTO) 6 % (0-12); NEUTROPHILS # (AUTO) 3.2 10^3/uL (1.8-7.8); NEUTROPHILS % (AUTO) 65 % (42-75); PLATELET COUNT 329 10^3/uL (130-400); WHITE BLOOD COUNT 4.9 10^3/uL (4.3-11.0)
[2020-11-10 03:30] LABS: CHLORIDE 104 MMOL/L (98-107); POTASSIUM 3.8 MMOL/L (3.6-5.0); SODIUM 139 MMOL/L (135-145)
[2020-11-10 03:31] LABS: CALCIUM 7.6 MG/DL (8.5-10.1)
[2020-11-10 03:32] LABS: GLUCOSE 169 MG/DL (70-105)
[2020-11-10 03:33] LABS: CARBON DIOXIDE 28 MMOL/L (21-32)
[2020-11-10 03:35] LABS: ABG BASE EXCESS 5.8 MMOL/L (-2.5-2.5); ABG OXYGEN SATURATION 95 % (94-100); ABG PCO2 47 MMHG (35-45); ABG PH 7.43 (7.37-7.43); ABG PO2 76 MMHG (79-93); ABG TCO2 31.2 MMOL/L (21.0-31.0)
[2020-11-10 03:35] LABS: PHOSPHORUS 3.3 MG/DL (2.3-4.7)
[2020-11-10 03:36] LABS: ALLENS TEST YES-POS; INSPIRED O2 50%
[2020-11-10 03:36] LABS: CREATININE SERUM 0.41 MG/DL (0.60-1.30); GFR ESTIMATED > 60
[2020-11-10 03:37] LABS: PATIENT TEMP 38.2; VENTILATOR YES
[2020-11-10 03:37] LABS: BUN/CREATININE RATIO 15
[2020-11-10 03:38] LABS: MAGNESIUM 1.7 MG/DL (1.6-2.4)
[2020-11-10] MEDS: KCL 20 MEQ TAB (K-DUR) PO SCH (03:40)
[2020-11-10] MEDS: POTASSIUM CL 10MEQ/50ML IVPB 50 ML IV SCH ×5 (03:40→08:25)
[2020-11-10] MEDS: MAGNESIUM 1 GM/100 ML IVPB 100 ML IV SCH ×2 (03:40→04:15)
[2020-11-10] MEDS: MEROPENEM 500 MG in WATER (STERILE) FOR INJECTION 10 ML IV SCH ×4 (04:15→23:00)
[2020-11-10] MEDS: LACTATED RINGERS 1,000 ML IV SCH (04:16)
--- NOTE | 2020-11-10 05:13 | Pulmonary Progress Note ---
Subjective Time Seen by a Provider: 05:11 Subjective/Events-last exam Sedated on vent. Sepsis Event Evaluation Height, Weight, BMI Height: 5'4.00" Weight: 281lbs. 0.0oz. 127.022310dy; 74.00 BMI Method:Stated Exam Exam Vital Signs Date Time Temp Pulse Resp B/P (MAP) Pulse Ox O2 Delivery O2 Flow Rate FiO2 11/10/20 03:24 Mechanical Ventilator 60.00 11/10/20 03:17 103 105/59 (74) 89 Mechanical Ventilator 30.00 11/10/20 02:18 97 24 96 30 11/10/20 02:08 87 112/83 11/10/20 02:00 37.5 92 24 112/83 (93) 96 Mechanical Ventilator 30.00 11/10/20 01:00 37.6 80 24 113/72 (86) 96 Mechanical Ventilator 30.00 11/10/20 00:00 37.9 82 23 108/89 (95) 95 Mechanical Ventilator 30.00 11/09/20 23:00 38.4 103 23 104/77 (86) 95 Mechanical Ventilator 30.00 11/09/20 22:21 98 24 96 30 11/09/20 22:00 38.3 112 16 114/94 (101) 96 Mechanical Ventilator 30.00 11/09/20 21:51 38.4 11/09/20 21:07 Mechanical Ventilator 30.00 11/09/20 21:00 38.3 93 24 109/75 (91) 97 Mechanical Ventilator 30.00 11/09/20 21:00 95 Mechanical Ventilator 30 11/09/20 20:00 38.1 98 24 107/81 (85) 95 Mechanical Ventilator 30.00 11/09/20 19:45 38.1 92 24 105/85 (92) 96 Mechanical Ventilator 30.00 11/09/20 19:30 38.2 94 23 109/84 (89) 95 Mechanical Ventilator 30.00 11/09/20 19:15 38.2 95 23 129/84 (93) 96 Mechanical Ventilator 30.00 11/09/20 19:00 96 11/09/20 19:00 38.2 96 24 106/83 (92) 96 Mechanical Ventilator 30.00 11/09/20 18:30 109 24 96 30 11/09/20 18:00 38.1 118 24 124/75 (91) 94 Mechanical Ventilator 30.00 11/09/20 17:00 37.9 98 25 131/83 (99) 94 Mechanical Ventilator 30.00 11/09/20 16:13 Mechanical Ventilator 30.00 11/09/20 16:06 93 24 112/80 11/09/20 16:00 37.9 98 23 115/73 (87) 96 Mechanical Ventilator 30.00 11/09/20 15:34 Mechanical Ventilator 40.00 11/09/20 15:01 100 24 95 30 11/09/20 15:00 37.7 84 33 107/67 (80) 95 Mechanical Ventilator 30.00 11/09/20 14:50 Mechanical Ventilator 30.00 11/09/20 14:00 37.8 89 44 94/74 (81) 96 Mechanical Ventilator 40.00 11/09/20 13:09 Mechanical Ventilator 40.00 11/09/20 13:00 37.5 90 15 103/72 (82) 94 Mechanical Ventilator 90.00 11/09/20 12:01 105 11/09/20 12:00 37.6 117 39 112/86 (95) 99 Mechanical Ventilator 90.00 11/09/20 11:00 37.5 87 111/89 (96) 98 Mechanical Ventilator 90.00 11/09/20 10:00 37.8 105 35 92/71 (78) 95 Mechanical Ventilator 90.00 11/09/20 09:37 Mechanical Ventilator 90.00 11/09/20 09:00 37.6 102 19 110/71 (84) 98 Mechanical Ventilator 40.00 11/09/20 09:00 95 Mechanical Ventilator 90 11/09/20 08:51 81 24 97 100 11/09/20 08:33 Mechanical Ventilator 40.00 11/09/20 08:00 37.5 106 30 95/69 (78) 92 Mechanical Ventilator 40.00 11/09/20 07:37 96 11/09/20 07:00 37.5 117 29 98/73 (81) 90 Mechanical Ventilator 40.00 11/09/20 06:26 101 24 109/83 11/09/20 06:00 37.3 101 23 109/84 (92) 92 Mechanical Ventilator 40.00 I & O 11/10/20 07:00 Intake Total 2835 ml Output Total 3075 ml Balance -240 ml Height & Weight Height: 5'4.00" Weight: 281lbs. 0.0oz. 127.657849im; 74.00 BMI Method:Stated General Appearance: No Apparent Distress, WD/WN, Chronically ill, Obese HEENT: PERRL/EOMI, TMs Normal Neck: Limited Range of Motion Respiratory: Lungs Clear Cardiovascular: Regular Rate, Rhythm Capillary Refill: Less Than 3 Seconds Extremity: Pedal Edema, Swelling, Other (Anasarca) Neurologic/Psychiatric: Other (sedated) Skin: Normal Color, Warm/Dry Lymphatic: No Adenopathy Results Lab Laboratory Tests 11/09/20 03:07 11/10/20 02:50 Assessment/Plan Assessment/Plan Acute respiratory failure with ARDS secondary to COVID -Currently on Vent -Intubated 10/22 -Decrease VT to 370 and RR to to 24 - Vt to 370. RR 24 currently 60% PEEP to 14 -EICU managed pt through the night -Pt is now down to 40% Fi02 after giving lasix yesterday. -will repeat lasix today and hold with [facility] transfer secondary to pt requiring more oxygen . - proning -Currently on Fentanyl and Versed -Continue TF per dietary recs -reglan -Remdesivir, CVP -Decadron PNA with copious amounts of sputum production - Merrem (multiple allergies) -s/p Vanco - -Repeat cultures pending secondary to fever and sputum production Tacycardia -Currently on Cardizem gtt bacteremia -Continue Merrem -Repeat BC pending -MRSA nasal swab is negative. Hyperglycemia -Change Levemir to 10units BID -Continue SSI C Hypernatremia -Change IVF to 1/2 NS -- increase to 75cc/hr - Monitor Anemia -Monitor Afib RVR -Eliquis -Cardiology Decrease phos -Replace Morbid obesity GI/DVT ppx -Eliquis - Protonix EDWIN REIS DO Nov 10, 2020 05:13
[2020-11-10] MEDS ORDERED: FUROSEMIDE 40 MG/4 ML INJ (LASIX) IVP ONE (05:15)
[2020-11-10] MEDS: dilTIAZem DRIP PRE-MIX 125 ML IV SCH ×2 (05:52→23:00)
[2020-11-10 07:11] VITALS: BP 104/70
[2020-11-10] MEDS: IPRATROPIUM INHALER (ATROVENT) 12.9 GM INH SCH ×4 (07:11→18:45)
--- NOTE | 2020-11-10 08:11 | Diagnostic Imaging Report ---
Portable erect AP chest at 234 hours. INDICATION: Respiratory distress. FINDINGS: The appearance of the chest has improved since the prior exam of 11/09/2020 as the left lung base does seem better aerated. There is still residual atelectasis/infiltrate in this area, however. Conversely, the abnormal density throughout the right hilum is somewhat greater on this study than on the prior exam. The right lung is otherwise relatively clear. The heart is stable in size. The mediastinum is not widened. The osseous structures are intact. The supportive tubes and lines seem similar in position. IMPRESSION: There are mixed results. The left lung base does seem better aerated than on the prior exam but there is greater involvement of the right perihilar region by pneumonia/atelectasis. Dictated by: Dictated on workstation # [id number]
[2020-11-10] MEDS: ASPIRIN 81 MG CHEW (CHILDREN'S ASA) PO SCH (08:26)
[2020-11-10] MEDS: DOCUSATE SODIUM 10 MG/ML 10 ML UDC (COLACE) PO SCH ×2 (08:26→19:55)
[2020-11-10] MEDS: FAMOTIDINE 20MG/2ML IV (PEPCID) IV SCH ×2 (08:26→19:54)
[2020-11-10] MEDS: APIXABAN 5 MG (ELIQUIS) TABLET PO SCH ×2 (08:26→19:54)
[2020-11-10] MEDS: meTOprolol TARTRATE 50 MG (LOPRESSOR) TAB PO SCH ×2 (08:27→19:58)
[2020-11-10] MEDS: MICONAZOLE 2% POWDER (DESENEX AF) 90 GM TOP SCH ×2 (08:27→19:56)
[2020-11-10] MEDS: ARTIFICIAL TEARS OINT (LACRI-LUBE) 3.5 GM TUBE OU SCH ×2 (08:28→19:55)
[2020-11-10] MEDS: MICONAZOLE NITRATE 2% CRM 30 GM TP SCH ×2 (08:29→20:01)
[2020-11-10 10:36] VITALS: BP 123/90
--- NOTE | 2020-11-10 10:40 | Cardiology Progress Note ---
Subjective Date Seen by Provider: Nov 10, 2020 Time Seen by Provider: 10:38 Subjective/Events-last exam Patient is sedated and intubated Review of Systems General: Other (unable to provide review of systems) Objective-Cardiology Exam Last Set of Vital Signs Vital Signs 11/10/20 11/10/20 09:00 10:00 Temp 36.9 Pulse 88 Resp 33 B/P (MAP) 101/86 (91) Pulse Ox 94 O2 Delivery Mechanical Ventilator O2 Flow Rate 60.00 FiO2 60 Capillary Refill : Less Than 3 Seconds I&O Intake and Output 11/10/20 00:00 Intake Total 3805 ml Output Total 3875 ml Balance -70 ml Intake Oral 0 ml IV Total 2135 ml Tube Feeding 900 ml Other 770 ml Output Urine Total 3875 ml General: Other (sedated and intubated) HEENT: Atraumatic Heart: Other (atrial fibrillation) Neuro: Other (sedated and intubated) Psych/Mental Status: Other (sedated and intubated) Results Lab Laboratory Tests 11/10/20 02:50 A/P-Cardiology Admission Diagnosis Acute respiratory failure COVID-19 pneumonia Atrial fibrillation Diabetes mellitus Assessment/Plan Acute respiratory failure, ventilatory dependent, prolonged intubation, discussed the possibility of tracheostomy, managed by Dr. Melchor Paroxysmal atrial fibrillation, maintained on Cardizem drip, had an episode of severe hypotension last night subsequently Cardizem drip was stopped, currently back on the drip with borderline heart rate and blood pressure. And tinea to monitor COVID-19 pneumonia, respiratory failure, managed by primary care team Hypotension, blood pressure is better at this time. Continue to monitor blood pressure [id number] score of 4, yearly risk of stroke without oral anticoagulation is 4.2 percent. Continue on oral anticoagulation if patient can tolerate the medication Diabetes mellitus, followed and managed by primary care physician Bronchial asthma/COPD, has been followed and managed by primary care physician. Obesity. Questionable sleep apnea. Clinical Quality Measures DVT/VTE Risk/Contraindication: Risk Factor Score Per Nursin RFS Level Per Nursing on Admit: 4+=Very High SWAPNIL PLUMMER MD Nov 10, 2020 10:40
[2020-11-10] MEDS: ACETAMINOPHEN 650 MG SUPP (TYLENOL) PR PRN (12:20)
--- NOTE | 2020-11-10 13:33 | NUR ---
Note pt is currently receiving TF of Pulmocare via 150ml bolus feeds q4h with 30ml free water flushes q4h. Note pt is at goal for feeds at this time. Will continue to follow and reassess as pt needs, intake, and status change. Power RICHARDSON, MS RD LD [phone] cell
--- NOTE | 2020-11-10 14:49 | NUR ---
Updated Benji on pt condition at this time.
[2020-11-10 15:25] VITALS: BP 99/81
[2020-11-10 18:45] VITALS: BP 108/85
[2020-11-10 22:15] VITALS: BP 112/76
[2020-11-11] MEDS: fentaNYL DRIP PRE-MIX 250 ML IV SCH ×5 (00:55→20:16)
[2020-11-11 02:46] VITALS: BP 108/88
[2020-11-11 02:46] LABS: ABG BASE EXCESS 3.9 MMOL/L (-2.5-2.5); ABG OXYGEN SATURATION 95 % (94-100); ABG PCO2 49 MMHG (35-45); ABG PH 7.39 (7.37-7.43); ABG PO2 84 MMHG (79-93); ABG TCO2 29.9 MMOL/L (21.0-31.0)
[2020-11-11] MEDS: RT-ALBUTEROL INHALER HFA (VENTOLIN HFA) 18 GM IH SCH ×6 (02:46→22:30)
[2020-11-11 02:50] LABS: BASOPHILS % (AUTO) 0 % (0-10); EOSINOPHILS # (AUTO) 0.2 10^3/uL (0.0-0.3); EOSINOPHILS % (AUTO) 3 % (0-10); HEMATOCRIT 30 % (35-52); HEMOGLOBIN 9.2 g/dL (11.5-16.0); LYMPHOCYTES # (AUTO) 1.2 10^3/uL (1.0-4.0); LYMPHOCYTES % (AUTO) 26 % (12-44); MEAN CORPUSCULAR HEMOGLOBIN 30 pg (25-34); MEAN CORPUSCULAR HGB CONC 31 g/dL (32-36); MEAN CORPUSCULAR VOLUME 99 fL (80-99); MEAN PLATELET VOLUME 9.7 fL (9.0-12.2); MONOCYTES # (AUTO) 0.3 10^3/uL (0.0-1.0); MONOCYTES % (AUTO) 7 % (0-12); NEUTROPHILS # (AUTO) 2.9 10^3/uL (1.8-7.8); NEUTROPHILS % (AUTO) 63 % (42-75); PLATELET COUNT 319 10^3/uL (130-400); WHITE BLOOD COUNT 4.6 10^3/uL (4.3-11.0)
[2020-11-11 02:52] LABS: ALLENS TEST YES-POS; INSPIRED O2 60%; PATIENT TEMP 37.6; VENTILATOR YES
[2020-11-11 03:02] LABS: BUN/CREATININE RATIO 12; CALCIUM 7.5 MG/DL (8.5-10.1); CARBON DIOXIDE 26 MMOL/L (21-32); CHLORIDE 105 MMOL/L (98-107); CREATININE SERUM 0.41 MG/DL (0.60-1.30); GFR ESTIMATED > 60; GLUCOSE 149 MG/DL (70-105); MAGNESIUM 1.9 MG/DL (1.6-2.4); PHOSPHORUS 3.8 MG/DL (2.3-4.7); POTASSIUM 3.7 MMOL/L (3.6-5.0); SODIUM 141 MMOL/L (135-145)
[2020-11-11] MEDS: POTASSIUM CL 10MEQ/50ML IVPB 50 ML IV SCH (03:08)
[2020-11-11] MEDS: MAGNESIUM 1 GM/100 ML IVPB 100 ML IV SCH (03:08)
[2020-11-11] MEDS: inSUlin ASPART (NovoLOG) 1 UNIT/0.01 ML (CHARGE PER UNIT) SC SCH ×4 (03:08→23:36)
[2020-11-11] MEDS: KCL 20 MEQ TAB (K-DUR) PO SCH (03:08)
[2020-11-11] MEDS: LACTATED RINGERS 1,000 ML IV SCH (03:44)
[2020-11-11] MEDS: MEROPENEM 500 MG in WATER (STERILE) FOR INJECTION 10 ML IV SCH (03:45)
--- NOTE | 2020-11-11 06:19 | Pulmonary Progress Note ---
Subjective Time Seen by a Provider: 06:14 Subjective/Events-last exam Sedated on vent. Sepsis Event Evaluation Height, Weight, BMI Height: 5'4.00" Weight: 281lbs. 0.0oz. 127.037743lu; 74.00 BMI Method:Stated Exam Exam Vital Signs Date Time Temp Pulse Resp B/P (MAP) Pulse Ox O2 Delivery O2 Flow Rate FiO2 11/11/20 05:00 37.3 117 16 119/99 (106) 94 Mechanical Ventilator 60.00 11/11/20 04:00 37.3 112 20 123/78 (93) 95 Mechanical Ventilator 60.00 11/11/20 03:00 37.5 122 20 115/89 (98) 94 Mechanical Ventilator 60.00 11/11/20 02:46 122 24 94 60 11/11/20 02:12 Mechanical Ventilator 60.00 11/11/20 02:00 37.7 114 20 126/86 (99) 93 Mechanical Ventilator 36.00 11/11/20 01:00 117 11/11/20 01:00 37.9 111 19 103/88 (93) 96 Mechanical Ventilator 36.00 11/11/20 00:00 37.9 92 24 130/94 (106) 96 Mechanical Ventilator 36.00 11/10/20 23:00 37.9 106 20 112/79 (90) 96 Mechanical Ventilator 36.00 11/10/20 22:59 124 112/85 11/10/20 22:48 Mechanical Ventilator 36.00 11/10/20 22:15 105 24 97 40 11/10/20 22:00 37.8 91 24 119/93 (102) 97 Mechanical Ventilator 40.00 11/10/20 21:00 37.7 98 24 116/93 (101) 96 Mechanical Ventilator 40.00 11/10/20 21:00 95 Mechanical Ventilator 40 11/10/20 20:25 Mechanical Ventilator 40.00 11/10/20 20:00 37.7 123 23 114/70 (85) 96 Mechanical Ventilator 40.00 11/10/20 19:00 95 11/10/20 19:00 37.7 85 23 120/97 (105) 95 Mechanical Ventilator 40.00 11/10/20 18:45 101 24 96 40 11/10/20 18:00 36.9 90 19 110/84 (93) 96 Mechanical Ventilator 60.00 11/10/20 17:00 36.9 85 31 113/101 (105) 97 Mechanical Ventilator 60.00 11/10/20 16:00 36.9 86 24 101/70 (80) 97 Mechanical Ventilator 60.00 11/10/20 15:25 88 24 97 40 11/10/20 15:00 36.9 96 23 86/69 (75) 98 Mechanical Ventilator 60.00 11/10/20 14:28 92 11/10/20 14:00 36.9 101 23 109/94 (99) 98 Mechanical Ventilator 60.00 11/10/20 13:00 36.9 95 24 102/84 (90) 98 Mechanical Ventilator 60.00 11/10/20 12:24 90 11/10/20 12:00 36.9 103 37 109/92 (98) 97 Mechanical Ventilator 60.00 11/10/20 11:22 36.9 118/103 (108) 97 Mechanical Ventilator 60.00 11/10/20 10:36 84 24 95 50 11/10/20 10:00 36.9 101/86 (91) 94 Mechanical Ventilator 60.00 11/10/20 09:00 95 Mechanical Ventilator 60 11/10/20 09:00 36.9 88 33 99/57 (71) 93 Mechanical Ventilator 60.00 11/10/20 08:00 36.9 79 86 111/75 (87) 95 Mechanical Ventilator 60.00 11/10/20 07:11 79 24 92 60 11/10/20 07:00 36.9 69 104/70 (81) 93 Mechanical Ventilator 60.00 11/10/20 06:32 57 I & O 11/11/20 07:00 Intake Total 1410 ml Output Total 3210 ml Balance -1800 ml Height & Weight Height: 5'4.00" Weight: 281lbs. 0.0oz. 127.622054jo; 74.00 BMI Method:Stated General Appearance: No Apparent Distress, WD/WN, Chronically ill, Obese HEENT: PERRL/EOMI, TMs Normal Neck: Limited Range of Motion Respiratory: Lungs Clear Cardiovascular: Regular Rate, Rhythm Capillary Refill: Less Than 3 Seconds Extremity: Pedal Edema, Swelling, Other (Anasarca) Neurologic/Psychiatric: Other (sedated) Skin: Normal Color, Warm/Dry Lymphatic: No Adenopathy Results Lab Laboratory Tests 11/10/20 02:50 11/11/20 02:15 Assessment/Plan Assessment/Plan Acute respiratory failure with ARDS secondary to COVID -Currently on Vent -Intubated 10/22 -Decrease VT to 370 and RR to to 24 - Vt to 370. RR 24 currently 60% PEEP to 14 -EICU managed pt through the night -Pt is up to 60% Fi02 - proning -Currently on Fentanyl and Versed -Continue TF per dietary recs -reglan -Remdesivir, CVP -Decadron PNA with copious amounts of sputum production - s/p Merrem -s/p Vanco - -Repeat cultures pending secondary to fever and sputum production Tacycardia -Currently on Cardizem gtt bacteremia -Continue Merrem -Repeat BC pending -MRSA nasal swab is negative. Hyperglycemia -Change Levemir to 10units BID -Continue SSI C Hypernatremia -Change IVF to 1/2 NS -- increase to 75cc/hr - Monitor Anemia -Monitor Afib RVR -Eliquis -Cardiology Decrease phos -Replace Morbid obesity GI/DVT ppx -Eliquis - Protonix EDWIN REIS DO Nov 11, 2020 06:19
[2020-11-11] MEDS: IPRATROPIUM INHALER (ATROVENT) 12.9 GM INH SCH ×4 (06:59→18:51)
[2020-11-11 07:01] VITALS: BP 121/83
[2020-11-11] MEDS: MICONAZOLE NITRATE 2% CRM 30 GM TP SCH ×2 (07:22→20:17)
--- NOTE | 2020-11-11 07:30 | Diagnostic Imaging Report ---
CHEST 1 VIEW, AP/PA ONLY Indication: Hypoxia Comparison: 11/10/2020 Findings: Stable ET and enteric tubes. Right perihilar consolidation with volume loss have improved but persists. Hazy opacities throughout the lungs are otherwise unchanged. No pleural effusion or pneumothorax. Grossly stable cardiac mediastinal silhouette allowing for patient rotation. Impression: 1. Stable support devices. 2. Improving but persistent right perihilar opacities. Dictated by: Dictated on workstation # [id number]
[2020-11-11] MEDS ORDERED: NS IV 1000 ML 1,000 ML ONE (08:03)
[2020-11-11] MEDS: DOCUSATE SODIUM 10 MG/ML 10 ML UDC (COLACE) PO SCH ×2 (08:18→20:15)
[2020-11-11] MEDS: meTOprolol TARTRATE 50 MG (LOPRESSOR) TAB PO SCH ×2 (08:18→20:15)
[2020-11-11] MEDS: APIXABAN 5 MG (ELIQUIS) TABLET PO SCH ×2 (08:18→20:15)
[2020-11-11] MEDS: FAMOTIDINE 20MG/2ML IV (PEPCID) IV SCH ×2 (08:18→20:15)
[2020-11-11] MEDS: ARTIFICIAL TEARS OINT (LACRI-LUBE) 3.5 GM TUBE OU SCH ×2 (08:19→20:17)
[2020-11-11] MEDS: MICONAZOLE 2% POWDER (DESENEX AF) 90 GM TOP SCH ×2 (08:19→20:17)
[2020-11-11] MEDS: ASPIRIN 81 MG CHEW (CHILDREN'S ASA) PO SCH (08:19)
[2020-11-11] MEDS: APAP 325 MG/10.15 ML LIQ (TYLENOL) UDC PO PRN (08:20)
[2020-11-11] MEDS: MIDAZOLAM DRIP PRE-MIX 100 ML IV SCH ×2 (08:21→16:16)
--- NOTE | 2020-11-11 08:52 | Cardiology Progress Note ---
Subjective Date Seen by Provider: Nov 11, 2020 Time Seen by Provider: 08:51 Subjective/Events-last exam patient is sedated and intubated Review of Systems General: Other (unable to provide review of systems) Objective-Cardiology Exam Last Set of Vital Signs Vital Signs 11/11/20 11/11/20 11/11/20 07:01 08:00 08:21 Temp 37.4 Pulse 111 Resp 23 B/P (MAP) 116/87 (97) Pulse Ox 93 O2 Delivery Mechanical Ventilator O2 Flow Rate 60.00 FiO2 60 Capillary Refill : Less Than 3 Seconds I&O Intake and Output 11/11/20 00:00 Intake Total 1410 ml Output Total 4500 ml Balance -3090 ml Tube Feeding 750 ml Other 660 ml Output Urine Total 4500 ml General: Other (sedated and intubated) HEENT: Atraumatic Heart: Other (atrial fibrillation) Neuro: Other (sedated and intubated) Psych/Mental Status: Other (sedated and intubated) Results Lab Laboratory Tests 11/11/20 02:15 A/P-Cardiology Admission Diagnosis Acute respiratory failure COVID-19 pneumonia Atrial fibrillation Diabetes mellitus Assessment/Plan Acute respiratory failure, ventilatory dependent, prolonged intubation, managed by Dr. Melchor Paroxysmal atrial fibrillation, maintained on Cardizem drip, borderline tachycardic, blood pressure is stable at this point. Continue on Cardizem drip and monitor COVID-19 pneumonia, respiratory failure, managed by primary care team Hypotension, blood pressure is better at this time. Continue to monitor blood pressure [id number] score of 4, yearly risk of stroke without oral anticoagulation is 4.2 percent. Continue on oral anticoagulation if patient can tolerate the medication Diabetes mellitus, followed and managed by primary care physician Bronchial asthma/COPD, has been followed and managed by primary care physician. Obesity. Clinical Quality Measures DVT/VTE Risk/Contraindication: Risk Factor Score Per Nursin RFS Level Per Nursing on Admit: 4+=Very High SWAPNIL PLUMMER MD Nov 11, 2020 08:52
--- NOTE | 2020-11-11 08:53 | Anesthesia-Procedure Note ---
Procedures/Interventions Procedure Start/Stop/Diagnosis Date of Procedure: Nov 11, 2020 Start Time: 07:40 Stop Time: 08:40 Arterial Line Arterial Line Catheter: 20G Type: Radial Location: Right Procedure: prepped, draped in sterile fashion, catheter sutured in place, good wave-form was obtained, patient tolerated procedure well, no immediate complications, post procedure area cleaned, post procedure dressing applied RYAN GUEVARA CRNA Nov 11, 2020 08:53
--- NOTE | 2020-11-11 09:30 | Physical Therapy Progress Note ---
Therapy Progress Note PT performed PROM to bilateral extremities, has increasing tightness in BLE, restraints on at the end of tx. Proper PPE donned before entering room. Patient O2 sats did not decrease during ROM. PRINCESS THOMAS PT Nov 11, 2020 09:30
[2020-11-11 10:46] VITALS: BP 125/68
--- NOTE | 2020-11-11 14:21 | NUR ---
Note pt is currently receiving TF of Pulmocare via 150ml bolus feeds q4h with 30ml free water flushes q4h. Note pt is at goal for feeds at this time. Will continue to follow and reassess as pt needs, intake, and status change. Power RICHARDSON, MS RD LD [phone] cell
[2020-11-11 14:47] VITALS: BP 125/70
[2020-11-11] MEDS: dilTIAZem DRIP PRE-MIX 125 ML IV SCH (16:16)
[2020-11-11 18:50] VITALS: BP 110/72
[2020-11-11 22:30] VITALS: BP 116/71
[2020-11-12] MEDS: fentaNYL DRIP PRE-MIX 250 ML IV SCH ×5 (01:01→20:49)
[2020-11-12] MEDS: MIDAZOLAM DRIP PRE-MIX 100 ML IV SCH ×2 (01:02→15:43)
[2020-11-12] MEDS: RT-ALBUTEROL INHALER HFA (VENTOLIN HFA) 18 GM IH SCH ×6 (01:35→22:07)
[2020-11-12] MEDS: dilTIAZem DRIP PRE-MIX 125 ML IV SCH ×2 (02:07→15:08)
[2020-11-12 02:21] LABS: BASOPHILS % (AUTO) 0 % (0-10); EOSINOPHILS # (AUTO) 0.2 10^3/uL (0.0-0.3); EOSINOPHILS % (AUTO) 3 % (0-10); HEMATOCRIT 29 % (35-52); HEMOGLOBIN 9.1 g/dL (11.5-16.0); LYMPHOCYTES % (AUTO) 21 % (12-44); MEAN CORPUSCULAR HEMOGLOBIN 30 pg (25-34); MEAN CORPUSCULAR HGB CONC 31 g/dL (32-36); MEAN CORPUSCULAR VOLUME 96 fL (80-99); MEAN PLATELET VOLUME 9.4 fL (9.0-12.2); MONOCYTES # (AUTO) 0.3 10^3/uL (0.0-1.0); MONOCYTES % (AUTO) 7 % (0-12); NEUTROPHILS # (AUTO) 3.3 10^3/uL (1.8-7.8); NEUTROPHILS % (AUTO) 69 % (42-75); PLATELET COUNT 307 10^3/uL (130-400); WHITE BLOOD COUNT 4.9 10^3/uL (4.3-11.0)
[2020-11-12 02:23] LABS: ABG BASE EXCESS 3.8 MMOL/L (-2.5-2.5); ABG OXYGEN SATURATION 96 % (94-100); ABG PCO2 46 MMHG (35-45); ABG PH 7.41 (7.37-7.43); ABG PO2 92 MMHG (79-93); ABG TCO2 29.3 MMOL/L (21.0-31.0); CHLORIDE 105 MMOL/L (98-107); POTASSIUM 4.1 MMOL/L (3.6-5.0); SODIUM 140 MMOL/L (135-145)
[2020-11-12 02:24] LABS: CALCIUM 7.7 MG/DL (8.5-10.1)
[2020-11-12 02:25] LABS: GLUCOSE 146 MG/DL (70-105)
[2020-11-12 02:26] LABS: CARBON DIOXIDE 25 MMOL/L (21-32)
[2020-11-12 02:29] LABS: ALLENS TEST ART LINE; CREATININE SERUM 0.39 MG/DL (0.60-1.30); INSPIRED O2 70%; PATIENT TEMP 37.9; VENTILATOR YES
[2020-11-12 02:30] LABS: BUN/CREATININE RATIO 15
[2020-11-12 02:31] LABS: MAGNESIUM 1.7 MG/DL (1.6-2.4)
[2020-11-12 02:39] LABS: GFR ESTIMATED > 60
--- NOTE | 2020-11-12 04:06 | Pulmonary Progress Note ---
Subjective Time Seen by a Provider: 03:59 Sepsis Event Evaluation Height, Weight, BMI Height: 5'4.00" Weight: 281lbs. 0.0oz. 127.217896gn; 74.00 BMI Method:Stated Exam Exam Vital Signs Date Time Temp Pulse Resp B/P (MAP) Pulse Ox O2 Delivery O2 Flow Rate FiO2 11/12/20 01:35 102 24 88 55 11/12/20 01:02 89 114/79 11/11/20 23:00 38.1 82 24 97 Mechanical Ventilator 55.00 11/11/20 22:41 Mechanical Ventilator 55.00 11/11/20 22:30 100 24 97 60 11/11/20 22:00 37.9 96 23 97 Mechanical Ventilator 60.00 11/11/20 21:00 95 Mechanical Ventilator 60 11/11/20 21:00 37.9 96 23 97 Mechanical Ventilator 60.00 11/11/20 20:00 Mechanical Ventilator 60.00 11/11/20 20:00 37.8 111 23 97 Mechanical Ventilator 60.00 11/11/20 19:00 108 11/11/20 19:00 37.6 101 24 98 Mechanical Ventilator 60.00 11/11/20 18:50 91 24 97 60 11/11/20 18:00 37.4 95 23 97 Mechanical Ventilator 60.00 11/11/20 17:00 37.4 82 23 97 Mechanical Ventilator 60.00 11/11/20 16:16 127 11/11/20 16:00 37.4 93 23 98 Mechanical Ventilator 60.00 11/11/20 15:00 37.4 103 24 98 Mechanical Ventilator 60.00 11/11/20 14:47 90 24 98 60 11/11/20 14:00 37.4 96 23 97 Mechanical Ventilator 60.00 11/11/20 13:44 37.4 130 23 97 Mechanical Ventilator 60.00 11/11/20 13:00 121 11/11/20 12:00 37.4 138 19 97 Mechanical Ventilator 60.00 11/11/20 11:35 37.2 11/11/20 11:00 37.4 115 23 96 Mechanical Ventilator 60.00 11/11/20 10:46 130 24 95 60 11/11/20 10:00 37.4 152 10 93 Mechanical Ventilator 60.00 11/11/20 09:00 37.4 113 24 95 Mechanical Ventilator 60.00 11/11/20 09:00 95 Mechanical Ventilator 60 11/11/20 08:21 111 11/11/20 08:00 37.4 86 23 116/87 (97) 93 Mechanical Ventilator 60.00 11/11/20 07:01 104 24 95 60 11/11/20 07:00 100 11/11/20 07:00 37.4 115 21 121/83 (96) 96 Mechanical Ventilator 60.00 11/11/20 06:00 37.4 105 23 119/65 (83) 95 Mechanical Ventilator 60.00 11/11/20 05:00 37.3 117 16 119/99 (106) 94 Mechanical Ventilator 60.00 11/11/20 04:00 37.3 112 20 123/78 (93) 95 Mechanical Ventilator 60.00 l I & O 11/12/20 07:00 Intake Total 1140 ml Output Total 2200 ml Balance -1060 ml Height & Weight Height: 5'4.00" Weight: 281lbs. 0.0oz. 127.979781gu; 74.00 BMI Method:Stated General Appearance: No Apparent Distress, WD/WN, Chronically ill, Obese HEENT: PERRL/EOMI, TMs Normal Neck: Limited Range of Motion Respiratory: Lungs Clear Cardiovascular: Regular Rate, Rhythm Capillary Refill: Less Than 3 Seconds Extremity: Pedal Edema, Swelling, Other (Anasarca) Neurologic/Psychiatric: Other (sedated) Skin: Normal Color, Warm/Dry Lymphatic: No Adenopathy Results Lab Laboratory Tests 11/11/20 02:15 11/12/20 02:00 Assessment/Plan Assessment/Plan Acute respiratory failure with ARDS secondary to COVID -Currently on Vent -Intubated 10/22 -Decrease VT to 370 and RR to to 24 - Vt to 370. RR 24 currently 60% PEEP to 14 -EICU managed pt through the night -Lasix x 1 40mg -Pt is up to 60% Fi02 - proning -Currently on Fentanyl and Versed -Continue TF per dietary recs -reglan -s/p Remdesivir, CVP -s/p Decadron PNA with serratia - s/p Merrem -s/p Vanco - Tacycardia -Currently on Cardizem gtt bacteremia -Continue Merrem -Repeat BC pending -MRSA nasal swab is negative. Hyperglycemia -Change Levemir to 10units BID -Continue SSI C Hypernatremia -Change IVF to 1/2 NS -- increase to 75cc/hr - Monitor Anemia -Monitor Afib RVR -Eliquis -Cardiology Decrease phos -Replace Morbid obesity GI/DVT ppx -Eliquis - Protonix EDWIN REIS DO Nov 12, 2020 04:06
[2020-11-12] MEDS ORDERED: FUROSEMIDE 40 MG/4 ML INJ (LASIX) ONE (04:10)
[2020-11-12] MEDS ORDERED: FUROSEMIDE 40 MG/4 ML INJ (LASIX) IVP ONE (04:15)
[2020-11-12] MEDS: POTASSIUM CL 10MEQ/50ML IVPB 50 ML IV SCH ×2 (04:20→05:18)
[2020-11-12] MEDS: inSUlin ASPART (NovoLOG) 1 UNIT/0.01 ML (CHARGE PER UNIT) SC SCH ×4 (05:18→23:45)
[2020-11-12] MEDS: MAGNESIUM 1 GM/100 ML IVPB 100 ML IV SCH (05:18)
[2020-11-12] MEDS: KCL 20 MEQ TAB (K-DUR) PO SCH (05:18)
[2020-11-12] MEDS: LACTATED RINGERS 1,000 ML IV SCH (05:38)
--- NOTE | 2020-11-12 05:38 | Diagnostic Imaging Report ---
Indication: Hypoxemia Portable chest 1:20 AM There is ET tube projects over the trachea. NG tube projects over the stomach. Left upper extremity PICC line tip projects over the SVC. There are some bilateral perihilar atelectasis. There is no appreciable effusion or pneumothorax. IMPRESSION: Bilateral perihilar infiltrates/atelectasis. No appreciable change compared to the previous day. Dictated by: Dictated on workstation # [id number]
[2020-11-12 08:32] VITALS: BP 128/72
[2020-11-12] MEDS: IPRATROPIUM INHALER (ATROVENT) 12.9 GM INH SCH ×4 (08:32→18:51)
[2020-11-12] MEDS: MICONAZOLE NITRATE 2% CRM 30 GM TP SCH ×2 (09:07→22:02)
[2020-11-12] MEDS: MICONAZOLE 2% POWDER (DESENEX AF) 90 GM TOP SCH ×2 (09:07→20:39)
[2020-11-12] MEDS: APIXABAN 5 MG (ELIQUIS) TABLET PO SCH ×2 (09:07→20:38)
[2020-11-12] MEDS: FAMOTIDINE 20MG/2ML IV (PEPCID) IV SCH ×2 (09:07→20:35)
[2020-11-12] MEDS: meTOprolol TARTRATE 50 MG (LOPRESSOR) TAB PO SCH ×2 (09:07→20:38)
[2020-11-12] MEDS: ARTIFICIAL TEARS OINT (LACRI-LUBE) 3.5 GM TUBE OU SCH ×2 (09:07→20:38)
[2020-11-12] MEDS: DOCUSATE SODIUM 10 MG/ML 10 ML UDC (COLACE) PO SCH ×2 (09:07→20:38)
[2020-11-12] MEDS: ASPIRIN 81 MG CHEW (CHILDREN'S ASA) PO SCH (09:07)
--- NOTE | 2020-11-12 09:25 | Physical Therapy Progress Note ---
Therapy Progress Note PROM bilateral extremities in supine. Restraints in place bilateral UE. ARTIE RAMIREZ PT Nov 12, 2020 09:25
[2020-11-12 11:50] VITALS: BP 133/69
--- NOTE | 2020-11-12 13:56 | NUR ---
Note pt is currently receiving TF of Pulmoc[employer] via 150ml bolus feeds q4h with 30ml free water flushes q4h. Note pt is at goal for feeds at this time. Will continue to follow and reassess as pt needs, intake, and status change. Power RICHARDSON, MS RD LD [phone] cell
--- NOTE | 2020-11-12 14:33 | NUR ---
SPOKE WITH DIMITRI AND UPDATED ON PATIENT CONDITION. ALL QUESTIONS ANSWERED.
[2020-11-12 15:03] VITALS: BP 110/74
--- NOTE | 2020-11-12 16:03 | Cardiology Progress Note ---
Cardiology SOAP Progress Note Subjective: intubated/ventilated Objective: I&O/Vital Signs 11/14/20 11/14/20 11/14/20 11/14/20 08:13 08:15 08:27 08:30 Temp 36.8 36.9 Pulse 82 87 Resp 24 15 B/P (MAP) Pulse Ox 96 97 O2 Delivery Mechanical Ventilator Mechanical Ventilator O2 Flow Rate 60.00 FiO2 60 11/14/20 11/14/20 11/14/20 11/14/20 08:45 09:00 09:15 09:30 Temp 36.9 37 37.1 37 Pulse 79 90 75 Resp 23 24 B/P (MAP) Pulse Ox 98 95 96 98 O2 Delivery Mechanical Ventilator O2 Flow Rate 60.00 11/14/20 11/14/20 11/14/20 11/14/20 09:45 10:00 10:15 10:24 Temp 37.1 37.1 37.2 Pulse 70 107 Resp 24 B/P (MAP) Pulse Ox 99 95 96 O2 Delivery Mechanical Ventilator Mechanical Ventilator O2 Flow Rate 60.00 40.00 11/14/20 11/14/20 11/14/20 11/14/20 10:26 10:30 10:45 11:00 Temp 37.2 37.3 37.3 Pulse 70 107 111 117 Resp 24 B/P (MAP) 96/62 Pulse Ox 93 93 93 O2 Delivery Mechanical Ventilator O2 Flow Rate 40.00 11/14/20 11/14/20 11/14/20 11/14/20 11:15 11:20 11:30 11:45 Temp 37.4 37.5 37.4 Pulse 107 105 96 105 Resp 24 24 B/P (MAP) Pulse Ox 93 93 92 91 FiO2 40 11/14/20 11/14/20 11/14/20 11/14/20 12:00 12:15 12:30 12:45 Temp 37.4 37.4 37.5 37.4 Pulse 90 98 97 101 Resp 24 B/P (MAP) Pulse Ox 91 91 91 91 O2 Delivery Mechanical Ventilator O2 Flow Rate 40.00 11/14/20 11/14/20 11/14/20 11/14/20 13:00 13:00 13:15 13:30 Temp 37.4 37.5 37.5 Pulse 101 90 115 95 Resp B/P (MAP) Pulse Ox 92 91 92 O2 Delivery Mechanical Ventilator O2 Flow Rate 40.00 11/14/20 11/14/20 11/14/20 11/14/20 13:45 14:00 14:15 14:30 Temp 37.6 37.5 37.5 37.6 Pulse 99 98 112 98 Resp 24 B/P (MAP) Pulse Ox 93 93 94 94 O2 Delivery Mechanical Ventilator O2 Flow Rate 40.00 11/14/20 11/14/20 11/14/20 11/14/20 14:45 15:00 15:15 15:30 Temp 37.6 37.5 37.6 37.7 Pulse 96 95 110 90 Resp B/P (MAP) Pulse Ox 94 93 94 94 O2 Delivery Mechanical Ventilator O2 Flow Rate 40.00 11/14/20 11/14/20 11/14/20 11/14/20 15:45 15:46 16:00 16:15 Temp 37.7 37.7 37.6 Pulse 103 94 112 110 Resp B/P (MAP) Pulse Ox 94 94 93 94 O2 Delivery Mechanical Ventilator O2 Flow Rate 40.00 FiO2 40 11/14/20 11/14/20 11/14/20 11/14/20 16:30 16:45 17:00 17:15 Temp 37.7 37.7 37.7 37.7 Pulse 114 91 96 92 Resp 18 B/P (MAP) Pulse Ox 94 94 94 95 O2 Delivery Mechanical Ventilator O2 Flow Rate 40.00 11/14/20 11/14/20 11/14/20 11/14/20 17:30 17:45 18:00 18:39 Temp 37.7 37.8 37.7 Pulse 97 137 105 100 Resp B/P (MAP) Pulse Ox 94 95 95 95 O2 Delivery Mechanical Ventilator O2 Flow Rate 40.00 FiO2 40 11/13/20 23:59 Intake Total 625 ml Output Total 1750 ml Balance -1125 ml Weight (Pounds): 281 Weight (Ounces): 0.0 Weight (Calculated Kilograms): 127.229997 Constitutional: other (intubated and sedated) Cardiovascular: irregularly irregular, tachycardia Gastrointestional: round, distended Extremities: normal inspection Neurologic/Psychiatric: other (intubated/ventilated.) Results/Procedures: Labs Laboratory Tests 11/13/20 23:09: Glucometer 125H 11/14/20 03:00: White Blood Count 5.3, Red Blood Count 3.03L, Hemoglobin 9.1L, Hematocrit 29L, Mean Corpuscular Volume 97, Mean Corpuscular Hemoglobin 30, Mean Corpuscular Hemoglobin Concent 31L, Red Cell Distribution Width 14.0, Platelet Count 237, Mean Platelet Volume 9.3, Immature Granulocyte % (Auto) 1, Neutrophils (%) (Auto) 69, Lymphocytes (%) (Auto) 18, Monocytes (%) (Auto) 7, Eosinophils (%) (Auto) 4, Basophils (%) (Auto) 0, Neutrophils # (Auto) 3.7, Lymphocytes # (Auto) 1.0, Monocytes # (Auto) 0.4, Eosinophils # (Auto) 0.2, Basophils # (Auto) 0.0, Immature Granulocyte # (Auto) 0.0, Blood Gas Puncture Site RIGHT ARTLINE, Blood Gas Patient Temperature 37, Arterial Blood pH 7.37, Arterial Blood Partial Pressure CO2 50H, Arterial Blood Partial Pressure O2 103H, Arterial Blood HCO3 28H, Arterial Blood Total CO2 29.4, Arterial Blood Oxygen Saturation 97, Arterial Blood Base Excess 3.0H, Hilario Test ARTLINE, Blood Gas Ventilator Setting YES, Blood Gas Inspired Oxygen 60, Sodium Level 137, Potassium Level 3.8, Chloride Level 103, Carbon Dioxide Level 25, Anion Gap 9, Blood Urea Nitrogen 5L, Creatinine 0.40L, Estimat Glomerular Filtration Rate > 60, BUN/Creatinine Ratio 13, Glucose Level 140H, Calcium Level 7.8L, Phosphorus Level 4.1, Magnesium Level 1.6 11/14/20 11:11: Glucometer 132H 11/14/20 18:12: Glucometer 113H Microbiology 11/13/20 Gram Stain - Final, Resulted 11/13/20 Sputum Culture - Preliminary, Resulted Gram Negative Say Staphylococcus aureus 11/07/20 Blood Culture - Final, Complete No growth 10/29/20 Catheter Tip Culture - Final, Complete No growth 10/25/20 Urine Culture - Final, Complete NO GROWTH A/P: Assessment/Dx: Acute respiratory failure due to COVID-19 pneumonia, ventilator dependent Hypotension likely secondary to sepsis, Anemia and leucopenia Atrial fibrillation with rapid ventricular response [id number] score of 4, yearly risk of stroke without oral anticoagulation is 4.2 percent. Continue on oral anticoagulation with Eliquis Diabetes mellitus, followed and managed by primary care physician Bronchial asthma/COPD Plan: Acute respiratory failure, ventilatory dependent, managed by primary care team COVID-19 pneumonia, respiratory failure, managed by primary care team Borderline hypotension, blood pressure is better at this time. Continue to monitor blood pressure Paroxysmal atrial fibrillation, with rapid ventricular rate. continue rate controlling agents [id number] score of 4, yearly risk of stroke without oral anticoagulation is 4.2 percent. Continue on oral anticoagulation if patient can tolerate the medication Diabetes mellitus, followed and managed by primary care physician Bronchial asthma/COPD, has been followed and managed by primary care physician. Obesity. Questionable sleep apnea. Thank you for your consultation. Please call me if you have any questions. Jada Urias MD, FACP, FACC, FSCAI, FHRS, CCDS Interventional Cardiology Cardiac Electrophysiology Vascular Medicine and Endovascular Interventions [place] URIAS MD Nov 12, 2020 16:03
[2020-11-12 18:52] VITALS: BP 135/65
[2020-11-12 22:08] VITALS: BP 121/72
[2020-11-13 01:26] VITALS: BP 149/80
[2020-11-13] MEDS: RT-ALBUTEROL INHALER HFA (VENTOLIN HFA) 18 GM IH SCH ×6 (01:26→22:15)
[2020-11-13] MEDS: fentaNYL DRIP PRE-MIX 250 ML IV SCH ×5 (02:25→21:57)
[2020-11-13] MEDS: dilTIAZem DRIP PRE-MIX 125 ML IV SCH ×3 (03:45→23:06)
[2020-11-13 03:56] LABS: ABG BASE EXCESS 2.4 MMOL/L (-2.5-2.5); ABG OXYGEN SATURATION 100 % (94-100); ABG PCO2 42 MMHG (35-45); ABG PH 7.42 (7.37-7.43); ABG PO2 154 MMHG (79-93); ABG TCO2 27.7 MMOL/L (21.0-31.0)
[2020-11-13 03:57] LABS: BASOPHILS % (AUTO) 0 % (0-10); EOSINOPHILS # (AUTO) 0.2 10^3/uL (0.0-0.3); EOSINOPHILS % (AUTO) 4 % (0-10); HEMATOCRIT 30 % (35-52); HEMOGLOBIN 9.2 g/dL (11.5-16.0); LYMPHOCYTES # (AUTO) 1.1 10^3/uL (1.0-4.0); LYMPHOCYTES % (AUTO) 22 % (12-44); MEAN CORPUSCULAR HEMOGLOBIN 30 pg (25-34); MEAN CORPUSCULAR HGB CONC 30 g/dL (32-36); MEAN CORPUSCULAR VOLUME 98 fL (80-99); MEAN PLATELET VOLUME 9.3 fL (9.0-12.2); MONOCYTES # (AUTO) 0.4 10^3/uL (0.0-1.0); MONOCYTES % (AUTO) 7 % (0-12); NEUTROPHILS # (AUTO) 3.3 10^3/uL (1.8-7.8); NEUTROPHILS % (AUTO) 67 % (42-75); PLATELET COUNT 271 10^3/uL (130-400); WHITE BLOOD COUNT 4.9 10^3/uL (4.3-11.0)
[2020-11-13 03:58] LABS: ALLENS TEST ART LINE; INSPIRED O2 50%
[2020-11-13 03:59] LABS: PATIENT TEMP 37.9; VENTILATOR YES
[2020-11-13 04:04] LABS: CHLORIDE 103 MMOL/L (98-107); POTASSIUM 3.7 MMOL/L (3.6-5.0); SODIUM 138 MMOL/L (135-145)
[2020-11-13 04:05] LABS: CALCIUM 7.8 MG/DL (8.5-10.1)
[2020-11-13 04:06] LABS: GLUCOSE 139 MG/DL (70-105)
[2020-11-13 04:07] LABS: CARBON DIOXIDE 24 MMOL/L (21-32)
[2020-11-13 04:09] LABS: PHOSPHORUS 3.8 MG/DL (2.3-4.7)
[2020-11-13 04:10] LABS: CREATININE SERUM 0.37 MG/DL (0.60-1.30); GFR ESTIMATED > 60
[2020-11-13 04:12] LABS: MAGNESIUM 1.6 MG/DL (1.6-2.4)
[2020-11-13 04:37] LABS: BUN/CREATININE RATIO 14
[2020-11-13] MEDS: MAGNESIUM 1 GM/100 ML IVPB 100 ML IV SCH (05:00)
[2020-11-13] MEDS: POTASSIUM CL 10MEQ/50ML IVPB 50 ML IV SCH (05:00)
[2020-11-13] MEDS: KCL 20 MEQ TAB (K-DUR) PO SCH (05:00)
[2020-11-13] MEDS ORDERED: MAGNESIUM 1 GM/100 ML IVPB 100 ML IV ONE ×2 (05:15→05:45)
[2020-11-13] MEDS: LACTATED RINGERS 1,000 ML IV SCH (05:15)
--- NOTE | 2020-11-13 05:30 | Diagnostic Imaging Report ---
EXAMINATION: Portable erect AP chest at 1:34 AM INDICATION: Respiratory distress, COVID-19 The mild cardiomegaly and the alveolar/interstitial pulmonary infiltrates involving both lungs seen on the prior exam of 11/12/2020 are again evident. The density in the right lung base may be somewhat greater than on the prior exam. The overall appearance of the chest is otherwise stable. The supportive tubes and lines are similar in position. IMPRESSION: The appearance of the chest has worsened somewhat since the prior exam as there does seem to be greater involvement of the right lung base by atelectasis/pneumonia. A follow-up exam would be recommended for continued evaluation. Dictated by: Dictated on workstation # [id number]
[2020-11-13] MEDS: inSUlin ASPART (NovoLOG) 1 UNIT/0.01 ML (CHARGE PER UNIT) SC SCH ×4 (05:36→23:09)
--- NOTE | 2020-11-13 06:15 | Pulmonary Progress Note ---
Subjective Time Seen by a Provider: 06:12 Subjective/Events-last exam Pt is sedated on vent. Sepsis Event Evaluation Height, Weight, BMI Height: 5'4.00" Weight: 281lbs. 0.0oz. 127.327709nf; 74.00 BMI Method:Stated Exam Exam Vital Signs Date Time Temp Pulse Resp B/P (MAP) Pulse Ox O2 Delivery O2 Flow Rate FiO2 11/13/20 05:00 37.4 116 23 90 Mechanical Ventilator 21.00 11/13/20 04:00 37.4 92 24 93 Mechanical Ventilator 21.00 11/13/20 03:00 37.6 102 18 92 Mechanical Ventilator 21.00 11/13/20 02:00 37.8 133 23 90 Mechanical Ventilator 21.00 11/13/20 01:26 124 24 97 21 11/13/20 01:00 37.7 130 23 90 Mechanical Ventilator 21.00 11/13/20 01:00 130 11/13/20 00:00 37.9 102 24 90 Mechanical Ventilator 21.00 11/12/20 23:00 38.0 84 23 90 Mechanical Ventilator 21.00 11/12/20 22:08 92 24 97 25 11/12/20 22:00 37.9 85 24 95 Mechanical Ventilator 21.00 11/12/20 21:00 37.9 94 24 95 Mechanical Ventilator 21.00 11/12/20 20:00 95 Mechanical Ventilator 25 11/12/20 20:00 37.8 107 23 95 Mechanical Ventilator 21.00 11/12/20 19:00 37.7 92 24 95 Mechanical Ventilator 21.00 11/12/20 19:00 99 11/12/20 18:52 109 24 98 25 11/12/20 18:00 37.9 101 23 95 Mechanical Ventilator 60.00 11/12/20 17:45 37.9 96 24 95 11/12/20 17:30 37.9 104 24 95 11/12/20 17:15 38 99 24 94 11/12/20 17:00 37.9 93 24 95 Mechanical Ventilator 60.00 11/12/20 16:45 37.8 90 23 95 11/12/20 16:30 37.8 96 24 95 11/12/20 16:15 37.8 93 24 95 11/12/20 16:00 38 92 23 95 Mechanical Ventilator 60.00 11/12/20 15:45 37.9 96 23 96 11/12/20 15:43 87 120/72 11/12/20 15:30 37.8 101 23 95 11/12/20 15:15 37.8 104 24 96 11/12/20 15:03 98 24 96 25 11/12/20 15:00 37.9 104 24 98 Mechanical Ventilator 60.00 11/12/20 14:45 37.8 94 23 97 11/12/20 14:30 37.9 101 24 97 11/12/20 14:15 37.8 96 23 97 11/12/20 14:00 37.7 104 23 97 Mechanical Ventilator 60.00 11/12/20 13:45 37.8 111 24 96 11/12/20 13:30 37.7 117 24 96 11/12/20 13:15 37.7 101 23 95 11/12/20 13:00 69 11/12/20 13:00 37.6 100 20 95 Mechanical Ventilator 60.00 11/12/20 12:45 37.7 118 0 95 11/12/20 12:30 37.7 84 34 95 11/12/20 12:15 37.7 82 20 94 11/12/20 12:00 37.7 131 24 94 Mechanical Ventilator 60.00 11/12/20 11:50 113 24 97 70 11/12/20 11:45 37.7 124 23 99 11/12/20 11:30 37.9 103 24 98 11/12/20 11:15 37.8 104 32 98 11/12/20 11:00 37.8 137 24 97 Mechanical Ventilator 60.00 11/12/20 10:45 37.8 126 24 98 11/12/20 10:30 37.7 110 11 92 11/12/20 10:15 37.7 97 94 11/12/20 10:00 37.7 98 93 Mechanical Ventilator 60.00 11/12/20 09:45 37.7 96 93 11/12/20 09:40 60.00 11/12/20 09:34 70.00 11/12/20 09:30 37.6 112 94 11/12/20 09:16 80.00 11/12/20 09:15 37.6 134 92 11/12/20 09:05 90.00 11/12/20 09:03 95 Mechanical Ventilator 90 11/12/20 09:00 37.6 140 95 11/12/20 08:45 37.5 138 92 11/12/20 08:32 107 24 94 70 11/12/20 08:30 37.5 114 95 70.00 11/12/20 08:15 37.4 89 94 11/12/20 08:00 37.5 89 93 11/12/20 07:45 37.5 87 93 11/12/20 07:30 37.7 85 93 11/12/20 07:15 37.7 94 94 11/12/20 07:00 89 11/12/20 07:00 37.6 91 94 Mechanical Ventilator 70.00 11/12/20 06:45 37.8 89 11/12/20 06:30 37.8 100 95 11/12/20 06:15 37.8 106 94 I & O 11/13/20 07:00 Intake Total 390 ml Output Total 1725 ml Balance -1335 ml Height & Weight Height: 5'4.00" Weight: 281lbs. 0.0oz. 127.555295ok; 74.00 BMI Method:Stated General Appearance: No Apparent Distress, WD/WN, Chronically ill, Obese HEENT: PERRL/EOMI, TMs Normal Neck: Limited Range of Motion Respiratory: Lungs Clear Cardiovascular: Regular Rate, Rhythm Capillary Refill: Less Than 3 Seconds Extremity: Pedal Edema, Swelling, Other (Anasarca) Neurologic/Psychiatric: Other (sedated) Skin: Normal Color, Warm/Dry Lymphatic: No Adenopathy Results Lab Laboratory Tests 11/12/20 02:00 11/13/20 03:40 Assessment/Plan Assessment/Plan Acute respiratory failure with ARDS secondary to COVID -Currently on Vent -Intubated 10/22 -Decrease VT to 370 and RR to to 24 - Vt to 370. RR 24 currently 80% PEEP to 14 -EICU managed pt through the night - proning -Currently on Fentanyl and Versed -Continue TF per dietary recs -reglan -s/p Remdesivir, CVP -s/p Decadron PNA with serratia - s/p Merrem -s/p Vanco - Tacycardia -Currently on Cardizem gtt bacteremia -Continue Merrem -Repeat BC pending -MRSA nasal swab is negative. Hyperglycemia -Change Levemir to 10units BID -Continue SSI C Hypernatremia -Change IVF to 1/2 NS -- increase to 75cc/hr - Monitor Anemia -Monitor Afib RVR -Eliquis -Cardiology Decrease phos -Replace Morbid obesity GI/DVT ppx -Eliquis - Protonix EDWIN REIS DO Nov 13, 2020 06:15
[2020-11-13] MEDS: MIDAZOLAM DRIP PRE-MIX 100 ML IV SCH ×2 (07:02→20:08)
[2020-11-13] MEDS: DOCUSATE SODIUM 10 MG/ML 10 ML UDC (COLACE) PO SCH ×2 (07:40→20:08)
[2020-11-13] MEDS: APIXABAN 5 MG (ELIQUIS) TABLET PO SCH ×2 (07:40→20:08)
[2020-11-13] MEDS: ASPIRIN 81 MG CHEW (CHILDREN'S ASA) PO SCH (07:40)
[2020-11-13] MEDS: meTOprolol TARTRATE 50 MG (LOPRESSOR) TAB PO SCH ×2 (07:40→20:09)
[2020-11-13] MEDS: MICONAZOLE 2% POWDER (DESENEX AF) 90 GM TOP SCH ×2 (07:41→20:09)
[2020-11-13] MEDS: ARTIFICIAL TEARS OINT (LACRI-LUBE) 3.5 GM TUBE OU SCH ×2 (07:41→20:09)
[2020-11-13] MEDS: FAMOTIDINE 20MG/2ML IV (PEPCID) IV SCH ×2 (07:41→20:08)
[2020-11-13] MEDS: MICONAZOLE NITRATE 2% CRM 30 GM TP SCH ×2 (07:41→20:09)
[2020-11-13 08:25] VITALS: BP 108/59
[2020-11-13] MEDS: IPRATROPIUM INHALER (ATROVENT) 12.9 GM INH SCH ×4 (08:34→18:30)
--- NOTE | 2020-11-13 13:31 | NUR ---
UPDATED GERI ON PT'S CONDITION. NO QUESTIONS/CONCERNS VOICED.
--- NOTE | 2020-11-13 14:30 | NUR ---
PT MOVED TO ROOM CU12. SMALL ICE BAGS PLACED AROUND EYES FOR INCREASING PERIORBITAL EDEMA WHILE IN PRONE POSITION.
[2020-11-13 14:39] VITALS: BP 123/75
[2020-11-13 18:30] VITALS: BP 125/72
[2020-11-13 22:15] VITALS: BP 130/73
[2020-11-13] MEDS: ACETAMINOPHEN 650 MG SUPP (TYLENOL) PR PRN (22:41)
[2020-11-14] MEDS: RT-ALBUTEROL INHALER HFA (VENTOLIN HFA) 18 GM IH SCH ×6 (01:34→22:26)
[2020-11-14 01:35] VITALS: BP 143/92
[2020-11-14 03:15] LABS: BASOPHILS % (AUTO) 0 % (0-10); EOSINOPHILS # (AUTO) 0.2 10^3/uL (0.0-0.3); EOSINOPHILS % (AUTO) 4 % (0-10); HEMATOCRIT 29 % (35-52); HEMOGLOBIN 9.1 g/dL (11.5-16.0); LYMPHOCYTES % (AUTO) 18 % (12-44); MEAN CORPUSCULAR HEMOGLOBIN 30 pg (25-34); MEAN CORPUSCULAR HGB CONC 31 g/dL (32-36); MEAN CORPUSCULAR VOLUME 97 fL (80-99); MEAN PLATELET VOLUME 9.3 fL (9.0-12.2); MONOCYTES # (AUTO) 0.4 10^3/uL (0.0-1.0); MONOCYTES % (AUTO) 7 % (0-12); NEUTROPHILS # (AUTO) 3.7 10^3/uL (1.8-7.8); NEUTROPHILS % (AUTO) 69 % (42-75); PLATELET COUNT 237 10^3/uL (130-400); WHITE BLOOD COUNT 5.3 10^3/uL (4.3-11.0)
[2020-11-14] MEDS: fentaNYL DRIP PRE-MIX 250 ML IV SCH ×5 (03:17→22:14)
[2020-11-14 03:18] LABS: ABG OXYGEN SATURATION 97 % (94-100); ABG PCO2 50 MMHG (35-45); ABG PH 7.37 (7.37-7.43); ABG PO2 103 MMHG (79-93); ABG TCO2 29.4 MMOL/L (21.0-31.0)
[2020-11-14 03:19] LABS: CHLORIDE 103 MMOL/L (98-107); POTASSIUM 3.8 MMOL/L (3.6-5.0); SODIUM 137 MMOL/L (135-145)
[2020-11-14 03:21] LABS: ALLENS TEST ARTLINE; CALCIUM 7.8 MG/DL (8.5-10.1); GLUCOSE 140 MG/DL (70-105); INSPIRED O2 60; PATIENT TEMP 37; VENTILATOR YES
[2020-11-14 03:23] LABS: CARBON DIOXIDE 25 MMOL/L (21-32)
[2020-11-14 03:25] LABS: GFR ESTIMATED > 60; PHOSPHORUS 4.1 MG/DL (2.3-4.7)
[2020-11-14 03:26] LABS: BUN/CREATININE RATIO 13
[2020-11-14 03:27] LABS: MAGNESIUM 1.6 MG/DL (1.6-2.4)
[2020-11-14] MEDS: MAGNESIUM 1 GM/100 ML IVPB 100 ML IV SCH ×2 (03:43→05:06)
[2020-11-14] MEDS: KCL 20 MEQ TAB (K-DUR) PO SCH (03:43)
[2020-11-14] MEDS: POTASSIUM CL 10MEQ/50ML IVPB 50 ML IV SCH (03:43)
--- NOTE | 2020-11-14 04:22 | Pulmonary Progress Note ---
Subjective Time Seen by a Provider: 04:19 Subjective/Events-last exam Pt is sedated on vent. Sepsis Event Evaluation Height, Weight, BMI Height: 5'4.00" Weight: 281lbs. 0.0oz. 127.316423nq; 74.00 BMI Method:Stated Exam Exam Vital Signs Date Time Temp Pulse Resp B/P (MAP) Pulse Ox O2 Delivery O2 Flow Rate FiO2 11/14/20 01:35 129 26 90 50 11/14/20 01:00 98 11/13/20 23:00 37.8 122 24 91 Mechanical Ventilator 30.00 11/13/20 22:45 Mechanical Ventilator 45.00 11/13/20 22:26 Mechanical Ventilator 40.00 11/13/20 22:15 104 24 87 30 11/13/20 22:00 37.9 96 24 93 Mechanical Ventilator 30.00 11/13/20 21:00 38.0 100 23 93 Mechanical Ventilator 30.00 11/13/20 20:28 Mechanical Ventilator 40 11/13/20 20:08 123/76 11/13/20 20:00 37.9 121 23 93 Mechanical Ventilator 30.00 11/13/20 19:56 37.8 107 24 94 Mechanical Ventilator 30.00 11/13/20 19:00 37.8 105 24 93 Mechanical Ventilator 30.00 11/13/20 19:00 119 11/13/20 18:30 92 24 96 35 11/13/20 18:00 37.8 107 23 95 Mechanical Ventilator 35.00 11/13/20 17:45 37.9 115 23 95 11/13/20 17:30 37.9 112 23 95 11/13/20 17:15 37.8 129 23 95 11/13/20 17:00 37.9 123 48 96 Mechanical Ventilator 35.00 11/13/20 16:45 37.9 112 29 95 11/13/20 16:30 37.9 96 32 96 11/13/20 16:15 37.9 40 96 11/13/20 16:00 38 103 20 96 Mechanical Ventilator 35.00 11/13/20 15:45 37.8 116 25 95 11/13/20 15:30 37.9 101 31 95 11/13/20 15:15 37.9 115 23 95 11/13/20 15:00 37.8 105 0 94 Mechanical Ventilator 35.00 11/13/20 14:45 37.9 113 13 94 11/13/20 14:39 122 24 93 35 11/13/20 14:30 37.8 96 37 98 11/13/20 14:15 37.8 100 24 97 11/13/20 14:00 37.8 102 23 97 Mechanical Ventilator 35.00 11/13/20 13:45 37.8 100 23 97 11/13/20 13:30 37.7 83 23 97 11/13/20 13:15 37.7 86 24 97 11/13/20 13:00 37.6 101 24 97 Mechanical Ventilator 35.00 11/13/20 12:52 107 11/13/20 12:45 37.5 101 22 96 11/13/20 12:30 37.4 91 23 96 11/13/20 12:15 37.5 87 23 95 11/13/20 12:00 37.5 94 24 95 11/13/20 11:51 Mechanical Ventilator 35.00 11/13/20 11:45 37.4 99 13 85 11/13/20 11:30 37.4 98 24 97 11/13/20 11:20 Mechanical Ventilator 50.00 11/13/20 11:15 37.3 85 23 98 11/13/20 11:00 37.4 87 24 98 Mechanical Ventilator 80.00 11/13/20 10:45 37.3 93 24 99 11/13/20 10:30 37.3 86 23 98 11/13/20 10:15 37.3 89 24 98 11/13/20 10:00 37.3 93 32 97 Mechanical Ventilator 80.00 11/13/20 09:45 37.2 86 22 94 11/13/20 09:30 37.2 78 24 96 11/13/20 09:15 37.3 74 23 96 11/13/20 09:00 93 Mechanical Ventilator 80 11/13/20 09:00 37.4 79 24 96 Mechanical Ventilator 80.00 11/13/20 08:45 37.4 75 24 95 11/13/20 08:30 37.4 86 24 95 11/13/20 08:28 Mechanical Ventilator 80.00 11/13/20 08:25 81 24 93 80 11/13/20 08:15 37.3 95 23 92 11/13/20 08:00 37.3 124 27 93 Mechanical Ventilator 21.00 12/19/20 07:45 37.1 112 51 93 11/13/20 07:30 37.2 117 24 93 11/13/20 07:15 37.3 113 24 92 11/13/20 07:02 117 11/13/20 07:00 118 11/13/20 07:00 37.2 122 23 87 Mechanical Ventilator 21.00 11/13/20 06:45 37.1 111 23 94 11/13/20 06:30 37.2 90 13 97 11/13/20 06:15 37.2 96 11/13/20 06:00 37.2 88 24 97 Mechanical Ventilator 21.00 11/13/20 05:00 37.4 116 23 90 Mechanical Ventilator 21.00 I & O 11/14/20 07:00 Intake Total 1115 ml Output Total 2350 ml Balance -1235 ml Height & Weight Height: 5'4.00" Weight: 281lbs. 0.0oz. 127.757525yq; 74.00 BMI Method:Stated General Appearance: No Apparent Distress, WD/WN, Chronically ill, Obese HEENT: PERRL/EOMI, TMs Normal Neck: Limited Range of Motion Respiratory: Lungs Clear Cardiovascular: Regular Rate, Rhythm Capillary Refill: Less Than 3 Seconds Extremity: Pedal Edema, Swelling, Other (Anasarca) Neurologic/Psychiatric: Other (sedated) Skin: Normal Color, Warm/Dry Lymphatic: No Adenopathy Results Lab Laboratory Tests 11/13/20 03:40 11/14/20 03:00 Assessment/Plan Assessment/Plan Acute respiratory failure with ARDS secondary to COVID -Currently on Vent -Intubated 10/22 -Decrease VT to 370 and RR to to 24 - Vt to 370. RR 24 currently 60% PEEP to 14 -EICU managed pt through the night - proning -Currently on Fentanyl and Versed -Continue TF per dietary recs -reglan -s/p Remdesivir, CVP -s/p Decadron PNA with serratia - s/p Merrem -s/p Vanco - Tacycardia -Currently on Cardizem gtt bacteremia -Continue Merrem -Repeat BC pending -MRSA nasal swab is negative. Hyperglycemia -Change Levemir to 10units BID -Continue SSI C Anemia -Monitor Afib RVR -Eliquis -Cardiology Decrease phos -Replace Morbid obesity GI/DVT ppx -Eliquis - Protonix EDWIN REIS DO Nov 14, 2020 04:22
[2020-11-14] MEDS: inSUlin ASPART (NovoLOG) 1 UNIT/0.01 ML (CHARGE PER UNIT) SC SCH ×3 (05:03→18:25)
--- NOTE | 2020-11-14 06:26 | Diagnostic Imaging Report ---
EXAMINATION: Portable erect AP chest at 1:44 AM INDICATION: Hypoxia The cardiomegaly noted on the prior exam of 11/13/2020 is again evident and no different. The patient is positioned differently on this exam than on the prior study. Even allowing for this, however, there does appear to have been an increase in the atelectasis/pneumonia involving the right lung base since the prior exam. The density in the left perihilar region may be somewhat greater as well. The upper lungs are relatively clear. The mediastinum is not widened. The osseous structures are intact. The supportive tubes and lines are unchanged in position. IMPRESSION: The appearance of the chest has worsened since the prior study as there is greater involvement of both lungs, particularly the right lung base by pneumonia/atelectasis. Dictated by: Dictated on workstation # [id number]
[2020-11-14 07:21] VITALS: BP 96/62
[2020-11-14] MEDS: IPRATROPIUM INHALER (ATROVENT) 12.9 GM INH SCH ×4 (07:21→18:39)
[2020-11-14] MEDS: LACTATED RINGERS 1,000 ML IV SCH (07:31)
[2020-11-14] MEDS: dilTIAZem DRIP PRE-MIX 125 ML IV SCH ×3 (07:31→22:20)
[2020-11-14] MEDS: DOCUSATE SODIUM 10 MG/ML 10 ML UDC (COLACE) PO SCH ×2 (07:32→20:10)
[2020-11-14] MEDS: ASPIRIN 81 MG CHEW (CHILDREN'S ASA) PO SCH (07:33)
[2020-11-14] MEDS: MICONAZOLE 2% POWDER (DESENEX AF) 90 GM TOP SCH ×2 (07:33→20:10)
[2020-11-14] MEDS: FAMOTIDINE 20MG/2ML IV (PEPCID) IV SCH ×2 (07:33→20:10)
[2020-11-14] MEDS: APIXABAN 5 MG (ELIQUIS) TABLET PO SCH ×2 (07:33→20:10)
[2020-11-14] MEDS: MICONAZOLE NITRATE 2% CRM 30 GM TP SCH ×2 (07:33→21:06)
[2020-11-14] MEDS: meTOprolol TARTRATE 50 MG (LOPRESSOR) TAB PO SCH ×2 (07:33→20:10)
[2020-11-14] MEDS: ARTIFICIAL TEARS OINT (LACRI-LUBE) 3.5 GM TUBE OU SCH ×2 (07:33→20:10)
[2020-11-14] MEDS: MIDAZOLAM DRIP PRE-MIX 100 ML IV SCH ×2 (10:26→22:15)
[2020-11-14 11:20] VITALS: BP 137/76
--- NOTE | 2020-11-14 12:17 | Cardiology Progress Note ---
Cardiology SOAP Progress Note Subjective: intubated/ventilated Objective: I&O/Vital Signs 11/14/20 11/14/20 11/14/20 11/14/20 08:15 08:27 08:30 08:45 Temp 36.8 36.9 36.9 Pulse 82 87 79 Resp 23 B/P (MAP) Pulse Ox 96 97 98 O2 Delivery Mechanical Ventilator FiO2 60 11/14/20 11/14/20 11/14/20 11/14/20 09:00 09:15 09:30 09:45 Temp 37 37.1 37 37.1 Pulse 90 75 70 Resp 24 24 24 B/P (MAP) Pulse Ox 95 96 98 99 O2 Delivery Mechanical Ventilator O2 Flow Rate 60.00 11/14/20 11/14/20 11/14/20 11/14/20 10:00 10:15 10:24 10:26 Temp 37.1 37.2 Pulse 107 70 Resp 24 B/P (MAP) 96/62 Pulse Ox 95 96 O2 Delivery Mechanical Ventilator Mechanical Ventilator O2 Flow Rate 60.00 40.00 11/14/20 11/14/20 11/14/20 11/14/20 10:30 10:45 11:00 11:15 Temp 37.2 37.3 37.3 37.4 Pulse 107 111 117 107 Resp 24 B/P (MAP) Pulse Ox 93 93 93 93 O2 Delivery Mechanical Ventilator O2 Flow Rate 40.00 11/14/20 11/14/20 11/14/20 11/14/20 11:20 11:30 11:45 12:00 Temp 37.5 37.4 37.4 Pulse 105 96 105 90 Resp 19 B/P (MAP) Pulse Ox 93 92 91 91 O2 Delivery Mechanical Ventilator O2 Flow Rate 40.00 FiO2 40 11/14/20 11/14/20 11/14/20 11/14/20 12:15 12:30 12:45 13:00 Temp 37.4 37.5 37.4 37.4 Pulse 98 97 101 101 Resp 23 B/P (MAP) Pulse Ox 91 91 91 92 O2 Delivery Mechanical Ventilator O2 Flow Rate 40.00 11/14/20 11/14/20 11/14/20 11/14/20 13:00 13:15 13:30 13:45 Temp 37.5 37.5 37.6 Pulse 90 115 95 99 Resp 24 B/P (MAP) Pulse Ox 91 92 93 11/14/20 11/14/20 11/14/20 11/14/20 14:00 14:15 14:30 14:45 Temp 37.5 37.5 37.6 37.6 Pulse 98 112 98 96 Resp 24 24 B/P (MAP) Pulse Ox 93 94 94 94 O2 Delivery Mechanical Ventilator O2 Flow Rate 40.00 11/14/20 11/14/20 11/14/20 11/14/20 15:00 15:15 15:30 15:45 Temp 37.5 37.6 37.7 37.7 Pulse 95 110 90 103 Resp 24 B/P (MAP) Pulse Ox 93 94 94 94 O2 Delivery Mechanical Ventilator O2 Flow Rate 40.00 11/14/20 11/14/20 11/14/20 11/14/20 15:46 16:00 16:15 16:30 Temp 37.7 37.6 37.7 Pulse 94 112 110 114 Resp 23 B/P (MAP) Pulse Ox 94 93 94 94 O2 Delivery Mechanical Ventilator O2 Flow Rate 40.00 FiO2 40 11/14/20 11/14/20 11/14/20 11/14/20 16:45 17:00 17:15 17:30 Temp 37.7 37.7 37.7 37.7 Pulse 91 96 92 97 Resp 18 24 B/P (MAP) Pulse Ox 94 94 95 94 O2 Delivery Mechanical Ventilator O2 Flow Rate 40.00 11/14/20 11/14/20 11/14/20 17:45 18:00 18:39 Temp 37.8 37.7 Pulse 137 105 100 Resp 24 B/P (MAP) Pulse Ox 95 95 95 O2 Delivery Mechanical Ventilator O2 Flow Rate 40.00 FiO2 40 11/13/20 23:59 Intake Total 625 ml Output Total 1750 ml Balance -1125 ml Weight (Pounds): 281 Weight (Ounces): 0.0 Weight (Calculated Kilograms): 127.315967 Constitutional: other (intubated and sedated) Cardiovascular: irregularly irregular, tachycardia Gastrointestional: round, distended Extremities: normal inspection Neurologic/Psychiatric: other (intubated/ventilated.) Results/Procedures: Labs Laboratory Tests 11/13/20 23:09: Glucometer 125H 11/14/20 03:00: White Blood Count 5.3, Red Blood Count 3.03L, Hemoglobin 9.1L, Hematocrit 29L, Mean Corpuscular Volume 97, Mean Corpuscular Hemoglobin 30, Mean Corpuscular Hemoglobin Concent 31L, Red Cell Distribution Width 14.0, Platelet Count 237, Mean Platelet Volume 9.3, Immature Granulocyte % (Auto) 1, Neutrophils (%) (Auto) 69, Lymphocytes (%) (Auto) 18, Monocytes (%) (Auto) 7, Eosinophils (%) (Auto) 4, Basophils (%) (Auto) 0, Neutrophils # (Auto) 3.7, Lymphocytes # (Auto) 1.0, Monocytes # (Auto) 0.4, Eosinophils # (Auto) 0.2, Basophils # (Auto) 0.0, Immature Granulocyte # (Auto) 0.0, Blood Gas Puncture Site RIGHT ARTLINE, Blood Gas Patient Temperature 37, Arterial Blood pH 7.37, Arterial Blood Partial Pressure CO2 50H, Arterial Blood Partial Pressure O2 103H, Arterial Blood HCO3 28H, Arterial Blood Total CO2 29.4, Arterial Blood Oxygen Saturation 97, Arterial Blood Base Excess 3.0H, Hilario Test ARTLINE, Blood Gas Ventilator Setting YES, Blood Gas Inspired Oxygen 60, Sodium Level 137, Potassium Level 3.8, Chloride Level 103, Carbon Dioxide Level 25, Anion Gap 9, Blood Urea Nitrogen 5L, Creatinine 0.40L, Estimat Glomerular Filtration Rate > 60, BUN/Creatinine Ratio 13, Glucose Level 140H, Calcium Level 7.8L, Phosphorus Level 4.1, Magnesium Level 1.6 11/14/20 11:11: Glucometer 132H 11/14/20 18:12: Glucometer 113H Microbiology 11/13/20 Gram Stain - Final, Resulted 11/13/20 Sputum Culture - Preliminary, Resulted Gram Negative Say Staphylococcus aureus 11/07/20 Blood Culture - Final, Complete No growth 10/29/20 Catheter Tip Culture - Final, Complete No growth 10/25/20 Urine Culture - Final, Complete NO GROWTH A/P: Assessment/Dx: Acute respiratory failure due to COVID-19 pneumonia, ventilator dependent Hypotension likely secondary to sepsis, Anemia and leucopenia Atrial fibrillation with rapid ventricular response [id number] score of 4, yearly risk of stroke without oral anticoagulation is 4.2 percent. Continue on oral anticoagulation with Eliquis Diabetes mellitus, followed and managed by primary care physician Bronchial asthma/COPD Plan: Acute respiratory failure, ventilatory dependent, managed by primary care team COVID-19 pneumonia, respiratory failure, managed by primary care team Borderline hypotension, blood pressure is better at this time. Continue to monitor blood pressure Paroxysmal atrial fibrillation, with rapid ventricular rate. continue current rate controlling agents [id number] score of 4, yearly risk of stroke without oral anticoagulation is 4.2 percent. Continue on oral anticoagulation if patient can tolerate the medication Diabetes mellitus, followed and managed by primary care physician Bronchial asthma/COPD, has been followed and managed by primary care physician. Obesity. Questionable sleep apnea. Thank you for your consultation. Please call me if you have any questions. Jada Urias MD, FACP, FACC, FSCAI, FHRS, CCDS Interventional Cardiology Cardiac Electrophysiology Vascular Medicine and Endovascular Interventions Sunshine URIAS MD Nov 14, 2020 12:17
--- NOTE | 2020-11-14 13:09 | NUR ---
UPDATED GERI ON PT'S CONDITION. NO QUESTIONS/CONCERNS VOICED.
[2020-11-14 15:46] VITALS: BP 131/78
[2020-11-14 18:39] VITALS: BP 128/74
[2020-11-14 22:27] VITALS: BP 139/76
[2020-11-15] VITALS (7 sets, daily range): BP systolic 99–110; BP diastolic 60–70
[2020-11-15] MEDS: ACETAMINOPHEN 650 MG SUPP (TYLENOL) PR PRN (00:05)
[2020-11-15] MEDS: MIDAZOLAM DRIP PRE-MIX 100 ML IV SCH ×2 (00:13→12:38)
[2020-11-15] MEDS: inSUlin ASPART (NovoLOG) 1 UNIT/0.01 ML (CHARGE PER UNIT) SC SCH ×4 (00:32→18:17)
[2020-11-15] MEDS: RT-ALBUTEROL INHALER HFA (VENTOLIN HFA) 18 GM IH SCH ×6 (01:37→21:31)
[2020-11-15 02:02] LABS: BASOPHILS % (AUTO) 0 % (0-10); EOSINOPHILS # (AUTO) 0.2 10^3/uL (0.0-0.3); EOSINOPHILS % (AUTO) 4 % (0-10); HEMATOCRIT 30 % (35-52); HEMOGLOBIN 9.2 g/dL (11.5-16.0); LYMPHOCYTES % (AUTO) 17 % (12-44); MEAN CORPUSCULAR HEMOGLOBIN 29 pg (25-34); MEAN CORPUSCULAR HGB CONC 31 g/dL (32-36); MEAN CORPUSCULAR VOLUME 95 fL (80-99); MEAN PLATELET VOLUME 9.2 fL (9.0-12.2); MONOCYTES # (AUTO) 0.5 10^3/uL (0.0-1.0); MONOCYTES % (AUTO) 8 % (0-12); NEUTROPHILS # (AUTO) 3.8 10^3/uL (1.8-7.8); NEUTROPHILS % (AUTO) 69 % (42-75); PLATELET COUNT 253 10^3/uL (130-400); WHITE BLOOD COUNT 5.5 10^3/uL (4.3-11.0)
[2020-11-15 02:04] LABS: ABG BASE EXCESS 2.2 MMOL/L (-2.5-2.5); ABG OXYGEN SATURATION 96 % (94-100); ABG PCO2 43 MMHG (35-45); ABG PO2 93 MMHG (79-93); ABG TCO2 27.7 MMOL/L (21.0-31.0)
[2020-11-15 02:10] LABS: ALLENS TEST POSITIVE; INSPIRED O2 40; PATIENT TEMP 37.6; VENTILATOR YES
[2020-11-15 02:18] LABS: CHLORIDE 103 MMOL/L (98-107); POTASSIUM 3.7 MMOL/L (3.6-5.0); SODIUM 138 MMOL/L (135-145)
[2020-11-15 02:19] LABS: CALCIUM 7.9 MG/DL (8.5-10.1); GLUCOSE 136 MG/DL (70-105)
[2020-11-15 02:21] LABS: CARBON DIOXIDE 24 MMOL/L (21-32)
[2020-11-15 02:23] LABS: GFR ESTIMATED > 60; PHOSPHORUS 3.8 MG/DL (2.3-4.7)
[2020-11-15 02:24] LABS: BUN/CREATININE RATIO 10
[2020-11-15 02:25] LABS: MAGNESIUM 1.7 MG/DL (1.6-2.4)
[2020-11-15] MEDS: MAGNESIUM 1 GM/100 ML IVPB 100 ML IV SCH ×2 (03:30→05:25)
[2020-11-15] MEDS: fentaNYL DRIP PRE-MIX 250 ML IV SCH ×5 (03:30→22:07)
[2020-11-15] MEDS ORDERED: FUROSEMIDE 40 MG/4 ML INJ (LASIX) ONE (04:22)
--- NOTE | 2020-11-15 04:25 | Pulmonary Progress Note ---
Subjective Time Seen by a Provider: 04:21 Subjective/Events-last exam Sedated on vent. Sepsis Event Evaluation Height, Weight, BMI Height: 5'4.00" Weight: 281lbs. 0.0oz. 127.141743in; 74.00 BMI Method:Stated Exam Exam Vital Signs Date Time Temp Pulse Resp B/P (MAP) Pulse Ox O2 Delivery O2 Flow Rate FiO2 11/15/20 01:38 93 24 93 40 11/15/20 00:13 111 135/72 11/14/20 23:00 38.1 108 24 96 Mechanical Ventilator 40.00 11/14/20 22:27 104 24 96 40 11/14/20 22:15 97 137/63 11/14/20 22:00 38.0 87 23 96 Mechanical Ventilator 40.00 11/14/20 21:00 37.8 86 23 95 Mechanical Ventilator 40.00 11/14/20 21:00 Mechanical Ventilator 40 11/14/20 20:00 37.9 102 13 96 Mechanical Ventilator 40.00 11/14/20 19:00 123 11/14/20 19:00 37.8 123 24 95 Mechanical Ventilator 40.00 11/14/20 18:39 100 24 95 40 11/14/20 18:00 37.7 105 23 95 Mechanical Ventilator 40.00 11/14/20 17:45 37.8 137 19 95 11/14/20 17:30 37.7 97 24 94 11/14/20 17:15 37.7 92 18 95 11/14/20 17:00 37.7 96 23 94 Mechanical Ventilator 40.00 11/14/20 16:45 37.7 91 24 94 11/14/20 16:30 37.7 114 23 94 11/14/20 16:15 37.6 110 19 94 11/14/20 16:00 37.7 112 23 93 Mechanical Ventilator 40.00 11/14/20 15:46 94 24 94 40 11/14/20 15:45 37.7 103 24 94 11/14/20 15:30 37.7 90 24 94 11/14/20 15:15 37.6 110 24 94 11/14/20 15:00 37.5 95 24 93 Mechanical Ventilator 40.00 11/14/20 14:45 37.6 96 24 94 11/14/20 14:30 37.6 98 24 94 11/14/20 14:15 37.5 112 19 94 11/14/20 14:00 37.5 98 24 93 Mechanical Ventilator 40.00 11/14/20 13:45 37.6 99 24 93 11/14/20 13:30 37.5 95 24 92 11/14/20 13:15 37.5 115 20 91 11/14/20 13:00 90 11/14/20 13:00 37.4 101 23 92 Mechanical Ventilator 40.00 11/14/20 12:45 37.4 101 24 91 11/14/20 12:30 37.5 97 24 91 11/14/20 12:15 37.4 98 20 91 11/14/20 12:00 37.4 90 19 91 Mechanical Ventilator 40.00 11/14/20 11:45 37.4 105 24 91 11/14/20 11:30 37.5 96 24 92 11/14/20 11:20 105 24 93 40 11/14/20 11:15 37.4 107 24 93 11/14/20 11:00 37.3 117 24 93 Mechanical Ventilator 40.00 11/14/20 10:45 37.3 111 24 93 11/14/20 10:30 37.2 107 24 93 11/14/20 10:26 70 24 96/62 11/14/20 10:24 Mechanical Ventilator 40.00 11/14/20 10:15 37.2 107 24 96 11/14/20 10:00 37.1 24 95 Mechanical Ventilator 60.00 11/14/20 09:45 37.1 70 24 99 11/14/20 09:30 37 75 24 98 11/14/20 09:15 37.1 23 96 11/14/20 09:00 37 90 24 95 Mechanical Ventilator 60.00 11/14/20 08:45 36.9 79 23 98 11/14/20 08:30 36.9 87 15 97 11/14/20 08:27 Mechanical Ventilator 60 11/14/20 08:15 36.8 82 24 96 11/14/20 08:13 Mechanical Ventilator 60.00 11/14/20 08:00 36.8 85 23 96 Mechanical Ventilator 45.00 11/14/20 07:45 36.8 129 29 92 11/14/20 07:30 36.8 133 24 95 11/14/20 07:21 118 24 96 60 11/14/20 07:15 36.8 90 23 96 11/14/20 07:00 115 11/14/20 07:00 36.8 81 24 96 Mechanical Ventilator 45.00 11/14/20 06:45 37 99 23 96 11/14/20 06:30 37.2 108 11/14/20 06:15 37.3 104 23 95 11/14/20 06:00 37.3 120 19 91 Mechanical Ventilator 45.00 11/14/20 05:56 125 29 92 11/14/20 05:00 36.9 122 24 95 Mechanical Ventilator 45.00 I & O 11/15/20 07:00 Intake Total 2260 ml Output Total 2375 ml Balance -115 ml Height & Weight Height: 5'4.00" Weight: 281lbs. 0.0oz. 127.411811sc; 74.00 BMI Method:Stated General Appearance: No Apparent Distress, WD/WN, Chronically ill, Obese HEENT: PERRL/EOMI, TMs Normal Neck: Limited Range of Motion Respiratory: Lungs Clear Cardiovascular: Regular Rate, Rhythm Capillary Refill: Less Than 3 Seconds Extremity: Pedal Edema, Swelling, Other (Anasarca) Neurologic/Psychiatric: Other (sedated) Skin: Normal Color, Warm/Dry Lymphatic: No Adenopathy Results Lab Laboratory Tests 11/14/20 03:00 11/15/20 01:45 Assessment/Plan Assessment/Plan Acute respiratory failure with ARDS secondary to COVID -Currently on Vent -Intubated 10/22 -Decrease VT to 370 and RR to to 24 - Vt to 370. RR 24 currently 60% PEEP to 14 -EICU managed pt through the night -Resume proning -Currently on Fentanyl and Versed -Continue TF per dietary recs -reglan -s/p Remdesivir, CVP -s/p Decadron PNA with serratia - s/p Merrem -s/p Vanco - Tacycardia -Currently on Cardizem gtt bacteremia -Continue Merrem -Repeat BC pending -MRSA nasal swab is negative. Hyperglycemia -Change Levemir to 10units BID -Continue SSI C Anemia -Monitor Afib RVR -Eliquis -Cardiology Decrease phos -Replace Morbid obesity GI/DVT ppx -Eliquis - Protonix EDWIN REIS DO Nov 15, 2020 04:25
[2020-11-15] MEDS ORDERED: FUROSEMIDE 40 MG/4 ML INJ (LASIX) IVP ONE (04:30)
[2020-11-15] MEDS: POTASSIUM CL 10MEQ/50ML IVPB 50 ML IV SCH ×4 (04:35→07:56)
[2020-11-15] MEDS: KCL 20 MEQ TAB (K-DUR) PO SCH (05:25)
[2020-11-15] MEDS: dilTIAZem DRIP PRE-MIX 125 ML IV SCH ×3 (06:21→19:54)
[2020-11-15] MEDS: IPRATROPIUM INHALER (ATROVENT) 12.9 GM INH SCH ×3 (06:40→18:43)
--- NOTE | 2020-11-15 07:48 | Progress Note - Cardiology ---
Cardiology SOAP Progress Note Subjective: Intubated and sedated Objective: I&O/Vital Signs 11/15/20 11/15/20 11/16/20 11/16/20 23:00 23:54 00:00 00:20 Temp 38.2 38.2 38.2 38.2 Pulse 103 121 111 Resp 23 B/P (MAP) Pulse Ox 90 85 89 O2 Delivery Mechanical Ventilator Mechanical Ventilator Mechanical Ventilator O2 Flow Rate 40.00 40.00 100.00 11/16/20 11/16/20 11/16/20 11/16/20 00:24 01:00 01:00 01:59 Temp 38.1 38.1 Pulse 100 80 101 Resp 9 24 B/P (MAP) Pulse Ox 91 90 O2 Delivery Mechanical Ventilator O2 Flow Rate 100.00 FiO2 100 11/16/20 11/16/20 11/16/20 11/16/20 02:00 02:24 03:00 04:00 Temp 37.9 37.8 37.6 Pulse 105 112 90 90 Resp 23 23 29 B/P (MAP) 99/66 Pulse Ox 87 90 90 O2 Delivery Mechanical Ventilator Mechanical Ventilator Mechanical Ventilator O2 Flow Rate 100.00 100.00 100.00 11/16/20 11/16/20 11/16/20 11/16/20 05:00 06:00 06:00 07:00 Temp 37.8 38.1 Pulse 93 113 109 134 Resp 13 27 28 B/P (MAP) Pulse Ox 90 85 87 O2 Delivery Mechanical Ventilator Mechanical Ventilator O2 Flow Rate 100.00 100.00 FiO2 100 11/16/20 11/16/20 09:00 10:42 Pulse 114 Resp 24 Pulse Ox 98 O2 Delivery Mechanical Ventilator FiO2 100 100 11/16/20 00:00 Intake Total 1330 ml Output Total 450 ml Balance 880 ml Weight (Pounds): 281 Weight (Ounces): 0.0 Weight (Calculated Kilograms): 127.292149 Constitutional: other (intubated and sedated) Results/Procedures: Labs Laboratory Tests 11/15/20 11:23: Glucometer 126H 11/15/20 18:01: Glucometer 121H 11/15/20 23:28: Glucometer 112H 11/16/20 02:13: White Blood Count 5.2, Red Blood Count 2.93L, Hemoglobin 8.6L, Hematocrit 28L, Mean Corpuscular Volume 95, Mean Corpuscular Hemoglobin 29, Mean Corpuscular Hemoglobin Concent 31L, Red Cell Distribution Width 14.3, Platelet Count 231, Mean Platelet Volume 9.5, Immature Granulocyte % (Auto) 0, Neutrophils (%) (Auto) 66, Lymphocytes (%) (Auto) 21, Monocytes (%) (Auto) 7, Eosinophils (%) (Auto) 6, Basophils (%) (Auto) 0, Neutrophils # (Auto) 3.4, Lymphocytes # (Auto) 1.1, Monocytes # (Auto) 0.3, Eosinophils # (Auto) 0.3, Basophils # (Auto) 0.0, Immature Granulocyte # (Auto) 0.0, Blood Gas Puncture Site ARTLINE, Blood Gas Patient Temperature 37.9, Arterial Blood pH 7.40, Arterial Blood Partial Pressure CO2 47H, Arterial Blood Partial Pressure O2 69L, Arterial Blood HCO3 28H, Arterial Blood Total CO2 29.6, Arterial Blood Oxygen Saturation 89L, Arterial Blood Base Excess 3.9H, Hilario Test POSITIVE, Blood Gas Ventilator Setting YES, Blood Gas Inspired Oxygen 100, Sodium Level 140, Potassium Level 3.8, Chloride Level 105, Carbon Dioxide Level 26, Anion Gap 9, Blood Urea Nitrogen 5L, Creatinine 0.40L, Estimat Glomerular Filtration Rate > 60, BUN/Creatinine Ratio 13, Glucose Level 129H, Calcium Level 7.7L, Phosphorus Level 3.6, Magnesium Level 1.7 11/16/20 05:30: Urine Color YELLOW, Urine Clarity CLEAR, Urine pH 6.5, Urine Specific [place] 1.010L, Urine Protein NEGATIVE, Urine Glucose (UA) NEGATIVE, Urine Ketones NEGATIVE, Urine Nitrite NEGATIVE, Urine Bilirubin NEGATIVE, Urine Urobilinogen 4.0, Urine Leukocyte Esterase TRACEH, Urine RBC (Auto) NEGATIVE, Urine RBC NONE, Urine WBC 2-5, Urine Squamous Epithelial Cells RARE, Urine Crystals PRESENTH, Urine Triple Phosphate Crystals RAREH, Urine Bacteria TRACE, Urine Casts NONE, Urine Mucus NEGATIVE, Urine Yeast MODERATEH, Urine Culture Indicated YES Microbiology 11/13/20 Gram Stain - Final, Complete 11/13/20 Sputum Culture - Final, Complete Serratia marcescens Staphylococcus aureus 11/07/20 Blood Culture - Final, Complete No growth 10/29/20 Catheter Tip Culture - Final, Complete No growth 10/25/20 Urine Culture - Final, Complete NO GROWTH A/P: Assessment: Acute respiratory failure due to COVID-19 pneumonia, ventilator dependent Atrial fibrillation with rapid ventricular response - rate fairly well controlled - continue IV Cardizem and BB via NG tube [id number] score of 4, yearly risk of stroke without oral anticoagulation is 4.2 percent. Continue oral anticoagulation with Eliquis Diabetes mellitus, followed and managed by primary care physician Bronchial asthma/COPD Obesity. Questionable sleep apnea. Plan: Continue current medication regimen Management of pneumonia/COVID per pulmonology Continue current cardiac regimen BABAK SILVA Nov 15, 2020 07:48
[2020-11-15] MEDS: MICONAZOLE 2% POWDER (DESENEX AF) 90 GM TOP SCH ×2 (07:55→19:55)
[2020-11-15] MEDS: ARTIFICIAL TEARS OINT (LACRI-LUBE) 3.5 GM TUBE OU SCH ×2 (07:55→19:55)
[2020-11-15] MEDS: MICONAZOLE NITRATE 2% CRM 30 GM TP SCH ×2 (07:56→19:56)
[2020-11-15] MEDS: ASPIRIN 81 MG CHEW (CHILDREN'S ASA) PO SCH (07:57)
[2020-11-15] MEDS: meTOprolol TARTRATE 50 MG (LOPRESSOR) TAB PO SCH ×2 (07:57→19:55)
[2020-11-15] MEDS: DOCUSATE SODIUM 10 MG/ML 10 ML UDC (COLACE) PO SCH ×2 (07:57→19:54)
[2020-11-15] MEDS: APIXABAN 5 MG (ELIQUIS) TABLET PO SCH ×2 (07:57→19:55)
[2020-11-15] MEDS: FAMOTIDINE 20MG/2ML IV (PEPCID) IV SCH ×2 (07:57→19:55)
[2020-11-15] MEDS: LACTATED RINGERS 1,000 ML IV SCH (07:58)
--- NOTE | 2020-11-15 08:08 | Diagnostic Imaging Report ---
EXAMINATION: Chest 1 view HISTORY: COVID, intubated COMPARISON: 11/14/2020 FINDINGS: Endotracheal tube tip terminates 5 cm above the richardson. Gastric tube tip terminates below the field of view. Left upper extremity peripherally inserted central venous catheter tip terminates in the superior vena cava. Small volumes are seen on the right with right mid zone atelectasis. Perihilar opacities appear similar to prior exam. There has been improvement in the right lung base opacification. No pleural effusion or pneumothorax. Heart size is normal. IMPRESSION: 1. Stable perihilar airspace opacities and improvement in right lung base opacification. Dictated by: Dictated on workstation # [id number]
--- NOTE | 2020-11-15 12:54 | NUR ---
UPDATED GERI ON PT'S CONDITION. NO QUESTIONS/CONCERNS VOICED.
--- NOTE | 2020-11-15 16:49 | NUR ---
Note pt is currently receiving TF via 150ml bolus feeds q4h with 30ml free water flushes q4h. Note pt is at goal for feeds at this time. Will continue to follow and reassess as pt needs, intake, and status change. Power RICHARDSON, MS RD LD
--- NOTE | 2020-11-15 18:29 | Progress Note - Cardiology ---
Cardiology SOAP Progress Note Subjective: Intubated and on mech vent Objective: I&O/Vital Signs 11/15/20 11/15/20 11/15/20 11/15/20 06:41 07:00 07:00 08:00 Temp 37.2 37.2 Pulse 86 80 112 98 Resp 24 24 37 B/P (MAP) Pulse Ox 93 93 94 O2 Delivery Mechanical Ventilator Mechanical Ventilator O2 Flow Rate 40.00 40.00 FiO2 40 11/15/20 11/15/20 11/15/20 11/15/20 08:09 09:00 09:00 09:58 Temp 37.2 Pulse 86 80 Resp 16 24 B/P (MAP) Pulse Ox 93 92 O2 Delivery Mechanical Ventilator Mechanical Ventilator Mechanical Ventilator O2 Flow Rate 40.00 40.00 FiO2 40 40 11/15/20 11/15/20 11/15/20 11/15/20 10:00 10:00 11:00 12:00 Temp 37.2 37.2 37.2 Pulse 80 90 105 82 Resp 24 25 21 B/P (MAP) Pulse Ox 92 93 95 94 O2 Delivery Mechanical Ventilator Mechanical Ventilator Mechanical Ventilator O2 Flow Rate 40.00 40.00 40.00 FiO2 40 11/15/20 11/15/20 11/15/20 11/15/20 12:38 13:00 13:50 14:00 Temp 37.2 37.7 Pulse 105 87 95 92 Resp 25 27 19 B/P (MAP) 102/62 Pulse Ox 96 90 O2 Delivery Mechanical Ventilator Mechanical Ventilator O2 Flow Rate 40.00 40.00 11/15/20 11/15/20 11/15/20 11/15/20 14:28 15:00 16:00 17:00 Temp 37.8 37.8 37.8 Pulse 93 123 116 121 Resp 24 22 21 24 B/P (MAP) Pulse Ox 92 96 95 94 O2 Delivery Mechanical Ventilator Mechanical Ventilator Mechanical Ventilator O2 Flow Rate 40.00 40.00 40.00 FiO2 40 11/15/20 18:18 Temp 38.0 Pulse 123 Resp 21 B/P (MAP) Pulse Ox 92 O2 Delivery Mechanical Ventilator O2 Flow Rate 40.00 11/15/20 00:00 Intake Total 685 ml Output Total 1325 ml Balance -640 ml Weight (Pounds): 281 Weight (Ounces): 0.0 Weight (Calculated Kilograms): 127.546721 Constitutional: other (intubated and sedated) Results/Procedures: Labs Laboratory Tests 11/15/20 00:10: Glucometer 132H 11/15/20 01:45: White Blood Count 5.5, Red Blood Count 3.14L, Hemoglobin 9.2L, Hematocrit 30L, Mean Corpuscular Volume 95, Mean Corpuscular Hemoglobin 29, Mean Corpuscular Hemoglobin Concent 31L, Red Cell Distribution Width 14.2, Platelet Count 253, Mean Platelet Volume 9.2, Immature Granulocyte % (Auto) 0, Neutrophils (%) (Auto) 69, Lymphocytes (%) (Auto) 17, Monocytes (%) (Auto) 8, Eosinophils (%) (Auto) 4, Basophils (%) (Auto) 0, Neutrophils # (Auto) 3.8, Lymphocytes # (Auto) 1.0, Monocytes # (Auto) 0.5, Eosinophils # (Auto) 0.2, Basophils # (Auto) 0.0, Immature Granulocyte # (Auto) 0.0, Blood Gas Puncture Site ARTLINE, Blood Gas Patient Temperature 37.6, Arterial Blood pH 7.40, Arterial Blood Partial Pressure CO2 43, Arterial Blood Partial Pressure O2 93, Arterial Blood HCO3 26, Arterial Blood Total CO2 27.7, Arterial Blood Oxygen Saturation 96, Arterial Blood Base Excess 2.2, Hilario Test POSITIVE, Blood Gas Ventilator Setting YES, Blood Gas Inspired Oxygen 40, Sodium Level 138, Potassium Level 3.7, Chloride Level 103, Carbon Dioxide Level 24, Anion Gap 11, Blood Urea Nitrogen 4L, Creatinine 0.40L, Estimat Glomerular Filtration Rate > 60, BUN/Creatinine Ratio 10, Glucose Level 136H, Calcium Level 7.9L, Phosphorus Level 3.8, Magnesium Level 1.7, Procalcitonin 0.02 11/15/20 11:23: Glucometer 126H 11/15/20 18:01: Glucometer 121H Microbiology 11/13/20 Gram Stain - Final, Complete 11/13/20 Sputum Culture - Final, Complete Serratia marcescens Staphylococcus aureus 11/07/20 Blood Culture - Final, Complete No growth 10/29/20 Catheter Tip Culture - Final, Complete No growth 10/25/20 Urine Culture - Final, Complete NO GROWTH Laboratory Tests 11/14/20 03:00 12/21/20 01:45 A/P: Assessment: Acute respiratory failure due to COVID-19 pneumonia, ventilator dependent Atrial fibrillation with rapid ventricular response - rate fairly well controlled - continue IV Cardizem and BB via NG tube [id number] score of 4, yearly risk of stroke without oral anticoagulation is 4.2 percent. Continue oral anticoagulation with Eliquis Diabetes mellitus, followed and managed by primary care physician Bronchial asthma/COPD Obesity. Questionable sleep apnea. Plan: Continue current medication regimen Management of pneumonia/COVID per pulmonology Continue current cardiac regimen WING FRANCO MD FACP FACC CCDS Nov 15, 2020 18:29
[2020-11-15] MEDS: APAP 325 MG/10.15 ML LIQ (TYLENOL) UDC PO PRN (23:54)
--- NOTE | 2020-11-16 00:20 | NUR ---
PTS SATS DROPPED TO THE 80'S. AGGRESSIVE SUCTIONING AND O2 TURNED UP TO 100%
[2020-11-16] MEDS: inSUlin ASPART (NovoLOG) 1 UNIT/0.01 ML (CHARGE PER UNIT) SC SCH ×5 (00:41→23:56)
[2020-11-16] MEDS: RT-ALBUTEROL INHALER HFA (VENTOLIN HFA) 18 GM IH SCH ×6 (01:52→21:47)
[2020-11-16] MEDS: fentaNYL DRIP PRE-MIX 250 ML IV SCH ×5 (02:13→23:41)
[2020-11-16] MEDS: MIDAZOLAM DRIP PRE-MIX 100 ML IV SCH ×3 (02:24→20:07)
[2020-11-16 02:27] LABS: ABG BASE EXCESS 3.9 MMOL/L (-2.5-2.5); ABG OXYGEN SATURATION 89 % (94-100); ABG PCO2 47 MMHG (35-45); ABG PO2 69 MMHG (79-93); ABG TCO2 29.6 MMOL/L (21.0-31.0); BASOPHILS % (AUTO) 0 % (0-10); EOSINOPHILS # (AUTO) 0.3 10^3/uL (0.0-0.3); EOSINOPHILS % (AUTO) 6 % (0-10); HEMATOCRIT 28 % (35-52); HEMOGLOBIN 8.6 g/dL (11.5-16.0); LYMPHOCYTES # (AUTO) 1.1 10^3/uL (1.0-4.0); LYMPHOCYTES % (AUTO) 21 % (12-44); MEAN CORPUSCULAR HEMOGLOBIN 29 pg (25-34); MEAN CORPUSCULAR HGB CONC 31 g/dL (32-36); MEAN CORPUSCULAR VOLUME 95 fL (80-99); MEAN PLATELET VOLUME 9.5 fL (9.0-12.2); MONOCYTES # (AUTO) 0.3 10^3/uL (0.0-1.0); MONOCYTES % (AUTO) 7 % (0-12); NEUTROPHILS # (AUTO) 3.4 10^3/uL (1.8-7.8); NEUTROPHILS % (AUTO) 66 % (42-75); PLATELET COUNT 231 10^3/uL (130-400); WHITE BLOOD COUNT 5.2 10^3/uL (4.3-11.0)
[2020-11-16 02:31] LABS: ALLENS TEST POSITIVE; INSPIRED O2 100; PATIENT TEMP 37.9; VENTILATOR YES
[2020-11-16 02:36] LABS: CHLORIDE 105 MMOL/L (98-107); POTASSIUM 3.8 MMOL/L (3.6-5.0); SODIUM 140 MMOL/L (135-145)
[2020-11-16 02:38] LABS: CALCIUM 7.7 MG/DL (8.5-10.1); GLUCOSE 129 MG/DL (70-105)
[2020-11-16 02:40] LABS: CARBON DIOXIDE 26 MMOL/L (21-32)
[2020-11-16 02:42] LABS: GFR ESTIMATED > 60; PHOSPHORUS 3.6 MG/DL (2.3-4.7)
[2020-11-16 02:43] LABS: BUN/CREATININE RATIO 13
[2020-11-16 02:44] LABS: MAGNESIUM 1.7 MG/DL (1.6-2.4)
[2020-11-16] MEDS: MAGNESIUM 1 GM/100 ML IVPB 100 ML IV SCH ×3 (03:13→06:18)
[2020-11-16] MEDS: dilTIAZem DRIP PRE-MIX 125 ML IV SCH ×3 (04:32→16:01)
[2020-11-16] MEDS ORDERED: FUROSEMIDE 40 MG/4 ML INJ (LASIX) ONE (05:21)
[2020-11-16] MEDS ORDERED: FUROSEMIDE 40 MG/4 ML INJ (LASIX) IVP ONE (05:30)
--- NOTE | 2020-11-16 05:45 | NUR ---
PT SATS DROPPING TO THE LOW 80'S AND HEARTRATE INCREASED TO 140,S. RT HERE BAGGING PT TO GET SATS UP
[2020-11-16 06:00] VITALS: BP 138/91
[2020-11-16] MEDS: IPRATROPIUM INHALER (ATROVENT) 12.9 GM INH SCH ×4 (06:00→18:22)
[2020-11-16] MEDS ORDERED: ROCURONIUM 10 MG/ML 5 ML SYRINGE IV ONE ×2 (06:07→06:27)
--- NOTE | 2020-11-16 06:10 | NUR ---
ROCURONIUM 50 MG GIVEN IV PER DR REIS
[2020-11-16] MEDS: POTASSIUM CL 10MEQ/50ML IVPB 50 ML IV SCH (06:18)
[2020-11-16] MEDS: KCL 20 MEQ TAB (K-DUR) PO SCH (06:18)
[2020-11-16 06:26] LABS: BILIRUBIN,URINE NEGATIVE (NEGATIVE); CLARITY,URINE CLEAR; COLOR,URINE YELLOW; GLUCOSE, URINE (UA) NEGATIVE (NEGATIVE); KETONES,URINE NEGATIVE (NEGATIVE); LEUKOCYTE ESTERASE ,URINE TRACE (NEGATIVE); NITRITE,URINE NEGATIVE (NEGATIVE); PH,URINE 6.5 (5-9); PROTEIN,URINE NEGATIVE (NEGATIVE)
--- NOTE | 2020-11-16 06:29 | NUR ---
SATS REMAIN IN THE 80'S ON 100% FIO2, DR REIS TO CALL THE FAMILY
--- NOTE | 2020-11-16 06:30 | Pulmonary Progress Note ---
Standard Progress Note Progress Notes Date Seen by Provider: Nov 16, 2020 Time Seen by Provider: 06:25 Called to bedside secondary to acute hypoxia without provoking event. Pt is also sinus tach and hypertensive. BS dim bilat. Pt is getting expiratory VTs. -Repeat CXR stat -Increase PEEP to 20 -Deep suctioning -will give paralytic I called and updated on pt's current respiratory status. I answered all questions to the best of my ability. CXR reviewed. Assessment & Plan Acute respiratory failure with ARDS secondary to COVID -Currently on Vent -Intubated 10/22 -Decrease VT to 370 and RR to to 24 - Vt to 370. RR 24 currently 60% PEEP to 14 -EICU managed pt through the night -Resume proning -Currently on Fentanyl and Versed -Continue TF per dietary recs -reglan -s/p Remdesivir, CVP -s/p Decadron PNA with serratia - s/p Merrem -s/p Vanco - Tacycardia -Currently on Cardizem gtt bacteremia -Continue Merrem -Repeat BC pending -MRSA nasal swab is negative. Hyperglycemia -Change Levemir to 10units BID -Continue SSI C Anemia -Monitor Afib RVR -Eliquis -Cardiology Decrease phos -Replace Morbid obesity GI/DVT ppx -Eliquis - Protonix Critical Care: Critically Ill Patient Time spent with patient (mins): 60 EDWIN REIS DO Nov 16, 2020 06:30
--- NOTE | 2020-11-16 06:31 | NUR ---
ROCURONIUM 50 MG GIVEN IV PER DR REIS
[2020-11-16] MEDS ORDERED: meTOprolol 5 MG/5 ML (LOPRESSOR) VIAL ONE (06:35)
[2020-11-16 06:38] LABS: BACTERIA,URINE TRACE /HPF; SQUAMOUS EPITHELIAL CELL,UR RARE /HPF; TRIPLE PHOSPHATE CRYSTAL,UR RARE /LPF
[2020-11-16 06:39] LABS: YEAST,URINE MODERATE /HPF
--- NOTE | 2020-11-16 06:40 | NUR ---
LOPRESSOR 5MG GIVEN IV FOR INCREASED HEARTRATE AND CARDIZEM INCREASED TO 20 MG/HR
[2020-11-16] MEDS: CISATRACURIUM INJECTION 100 MG in NS (IVPB) 200 ML IV SCH ×6 (06:51→23:40)
--- NOTE | 2020-11-16 07:01 | NUR ---
NIMBEX DRIP STARTED, PEEP UP TO 22
--- NOTE | 2020-11-16 07:29 | Diagnostic Imaging Report ---
INDICATION: Hypoxia, COVID positive. TECHNIQUE: Single view chest 6:14 AM. CORRELATION STUDY: 11/16/2020 FINDINGS: Endotracheal tube is present. Tip limited in visualization but appears ti be approximately the level of the clavicles. Gastric tube passes below the left hemidiaphragm. Extensive bilateral pulmonary opacities persisting. Given differences in technique overall slightly increased. The mediastinal structures including including heart are largely obscured. IMPRESSION: 1. Generally stable appearance about the support lines and tubes. 2. Extensive 5 lobe infiltrate persisting, overall stable to perhaps minimally increased. Dictated by: Dictated on workstation # [id number]
--- NOTE | 2020-11-16 07:48 | Diagnostic Imaging Report ---
INDICATION: COVID positive, mechanical ventilation. TECHNIQUE: Single view chest 2:30 AM. CORRELATION STUDY: 11/15/2020 FINDINGS: Endotracheal tube tip projects over the trachea just below level the clavicles. Left upper extremity central line and gastric tube are present, tip is not well visualized. Increasing bilateral pulmonary opacities are present right greater than left. Heart size and mediastinum are largely obscured but appear generally stable. However, vasculature appears more prominent from prior. IMPRESSION: 1. Bilateral pulmonary infiltrates overall adversely increased from prior. Vasculature also appears more prominent from prior. Dictated by: Dictated on workstation # [id number]
[2020-11-16] MEDS: FAMOTIDINE 20MG/2ML IV (PEPCID) IV SCH ×2 (08:05→20:05)
[2020-11-16] MEDS: ARTIFICIAL TEARS OINT (LACRI-LUBE) 3.5 GM TUBE OU SCH ×2 (08:05→20:05)
[2020-11-16] MEDS: ASPIRIN 81 MG CHEW (CHILDREN'S ASA) PO SCH (08:05)
[2020-11-16] MEDS: DOCUSATE SODIUM 10 MG/ML 10 ML UDC (COLACE) PO SCH ×2 (08:05→20:05)
[2020-11-16] MEDS: meTOprolol TARTRATE 50 MG (LOPRESSOR) TAB PO SCH (08:05)
[2020-11-16] MEDS: APIXABAN 5 MG (ELIQUIS) TABLET PO SCH ×2 (08:05→20:05)
[2020-11-16] MEDS: MICONAZOLE NITRATE 2% CRM 30 GM TP SCH ×2 (08:06→20:06)
[2020-11-16] MEDS: MICONAZOLE 2% POWDER (DESENEX AF) 90 GM TOP SCH ×2 (08:06→20:06)
[2020-11-16] MEDS: LACTATED RINGERS 1,000 ML IV SCH ×2 (08:07→23:41)
--- NOTE | 2020-11-16 10:24 | Physical Therapy Progress Note ---
Therapy Progress Note PROM all extremities in supine. Sedated and intubated. ARTIE RAMIREZ PT Nov 16, 2020 10:24
[2020-11-16 10:42] VITALS: BP 136/85
--- NOTE | 2020-11-16 11:09 | Progress Note - Cardiology ---
Cardiology SOAP Progress Note Subjective: Intubated and sedated Spoke with nurse, Naomi, this morning Overnight became tachycardia and hypoxic requiring increase in vent settings Began to have a fever Currently pt is prone Objective: I&O/Vital Signs 11/16/20 11/16/20 11/16/20 11/16/20 21:00 21:00 21:47 22:00 Temp 37.5 37.6 Pulse 80 84 74 Resp 24 23 B/P (MAP) Pulse Ox 99 98 98 O2 Delivery Mechanical Ventilator Mechanical Ventilator Mechanical Ventilator O2 Flow Rate 80.00 80.00 FiO2 80 80 11/16/20 11/17/20 11/17/20 11/17/20 23:00 00:00 01:00 01:00 Temp 37.7 37.7 37.6 Pulse 80 86 78 81 Resp 23 B/P (MAP) Pulse Ox 99 98 99 O2 Delivery Mechanical Ventilator Mechanical Ventilator Mechanical Ventilator O2 Flow Rate 80.00 80.00 80.00 11/17/20 11/17/20 11/17/20 11/17/20 01:26 02:00 02:10 03:00 Temp 37.7 38.0 Pulse 77 82 90 Resp 24 16 B/P (MAP) Pulse Ox 98 99 98 O2 Delivery Mechanical Ventilator Mechanical Ventilator Mechanical Ventilator O2 Flow Rate 75.00 75.00 75.00 FiO2 75 11/17/20 11/17/20 11/17/20 11/17/20 04:00 05:00 05:12 06:00 Temp 37.7 37.5 37.6 Pulse 80 86 73 82 Resp 23 B/P (MAP) 126/67 Pulse Ox 98 98 98 O2 Delivery Mechanical Ventilator Mechanical Ventilator Mechanical Ventilator O2 Flow Rate 75.00 75.00 75.00 11/17/20 11/17/20 06:40 07:00 Pulse 69 81 Resp 24 Pulse Ox 98 FiO2 60 11/17/20 00:00 Output Total 825 ml Balance -825 ml Weight (Pounds): 281 Weight (Ounces): 0.0 Weight (Calculated Kilograms): 127.390167 Constitutional: other (intubated and sedated) Results/Procedures: Labs Laboratory Tests 11/16/20 11:37: Glucometer 127H 11/16/20 17:40: Glucometer 123H 11/16/20 23:33: Glucometer 107 12/23/20 01:25: White Blood Count 6.2, Red Blood Count 3.03L, Hemoglobin 8.8L, Hematocrit 29L, Mean Corpuscular Volume 94, Mean Corpuscular Hemoglobin 29, Mean Corpuscular Hemoglobin Concent 31L, Red Cell Distribution Width 14.4, Platelet Count 262, Mean Platelet Volume 9.5, Immature Granulocyte % (Auto) 1, Neutrophils (%) (Auto) 70, Lymphocytes (%) (Auto) 18, Monocytes (%) (Auto) 8, Eosinophils (%) (Auto) 4, Basophils (%) (Auto) 0, Neutrophils # (Auto) 4.3, Lymphocytes # (Auto) 1.1, Monocytes # (Auto) 0.5, Eosinophils # (Auto) 0.3, Basophils # (Auto) 0.0, Immature Granulocyte # (Auto) 0.0, Blood Gas Puncture Site ARTLINE, Blood Gas Patient Temperature 37.6, Arterial Blood pH 7.45H, Arterial Blood Partial Pressure CO2 39, Arterial Blood Partial Pressure O2 283H, Arterial Blood HCO3 26, Arterial Blood Total CO2 27.6, Arterial Blood Oxygen Saturation 101H, Arterial Blood Base Excess 2.8H, Hilario Test POSITIVE, Blood Gas Ventilator Setting YES, Blood Gas Inspired Oxygen 75, Sodium Level 139, Potassium Level 3.7, Chloride Level 104, Carbon Dioxide Level 23, Anion Gap 12, Blood Urea Nitrogen 4L, Creatinine 0.39L, Estimat Glomerular Filtration Rate > 60, BUN/Creatinine Ratio 10, Glucose Level 121H, Calcium Level 7.9L, Phosphorus Level 4.2, Magnesium Level 1.7 Microbiology 11/16/20 Blood Culture - Preliminary, Resulted No growth 11/16/20 Gram Stain - Final, Resulted 11/16/20 Sputum Culture - Preliminary, Resulted Staphylococcus aureus Gram Negative Say 11/16/20 Urine Culture - Preliminary, Resulted YEAST 10/29/20 Catheter Tip Culture - Final, Complete No growth Procedures NAME: KATERIN MABRY Ganesh [facility] REC#: [id number] PT STATUS: ADM IN : 1975 PHYSICIAN: EDWIN REIS DO ADMIT DATE: 10/21/20/ICU Draft Date of Exam:11/16/20 CHEST 1 VIEW, AP/PA ONLY INDICATION: Hypoxia, COVID positive. TECHNIQUE: Single view chest 6:14 AM. CORRELATION STUDY: 11/16/2020 FINDINGS: Endotracheal tube is present. Tip limited in visualization but appears ti be approximately the level of the clavicles. Gastric tube passes below the left hemidiaphragm. Extensive bilateral pulmonary opacities persisting. Given differences in technique overall slightly increased. The mediastinal structures including including heart are largely obscured. IMPRESSION: 1. Generally stable appearance about the support lines and tubes. 2. Extensive 5 lobe infiltrate persisting, overall stable to perhaps minimally increased. Dictated on workstation # [id number] Dict: 11/16/20 [id number] Trans: 11/16/20 0728 FRANKY [id number] Interpreted by: SARAVANAN JUAREZ DO Electronically signed by: A/P: Assessment: Acute respiratory failure due to COVID-19 pneumonia, ventilator dependent UTI - managment per medical services Atrial fibrillation with rapid ventricular response - rate fairly well controlled - continue IV Cardizem, change BB to IV [id number] score of 4, yearly risk of stroke without oral anticoagulation is 4.2 percent. Continue oral anticoagulation with Eliquis Diabetes mellitus, followed and managed by primary care physician Bronchial asthma/COPD Obesity. Questionable sleep apnea. Plan: Continue IV Cardizem and BB (via NG) - adjust as tolerated - received additional IV dose this morning Change BB to IV Management of UTI per ICU services Management of pneumonia/COVID per pulmonology Continue current cardiac regimen BABAK SILVA Nov 16, 2020 11:08
--- NOTE | 2020-11-16 14:16 | NUR ---
Note pt currently receiving TF via 150ml bolus feeds q4h with 30ml free water flushes before/after each bolus. Note pt has difficulty with tolerance while prone. Would recommend holding TF while prone. Would recommend increasing to goal of 200ml bolus feed q4h while supine. Will continue to follow and reassess as pt needs, intake, and status change. Power Vieyra, MS RD LD
--- NOTE | 2020-11-16 15:07 | NUR ---
phone call placed to Dyllan. Updates given and questions answered. Dyllan very tearful and worried pt will not make it. Dyllan reassured that we are doing everything possible. Dyllan stated he was going to speak with Pt's daughters and discuss the possibility of comfort care if the doctor feels she has no chance of coming off the vent. Dyllan states he has no further questions or concerns at this time.
[2020-11-16 15:12] VITALS: BP 117/69
[2020-11-16] MEDS: meTOprolol 5 MG/5 ML (LOPRESSOR) VIAL IV SCH ×4 (16:01→23:40)
--- NOTE | 2020-11-16 18:03 | Progress Note - Cardiology ---
Cardiology SOAP [facility] Objective: I&O/Vital Signs 11/16/20 11/16/20 11/16/20 11/16/20 07:00 07:00 08:00 09:00 Temp 38.3 38.7 38.7 Pulse 115 134 134 107 Resp 19 31 24 B/P (MAP) Automatic Cuff Pulse Ox 87 94 96 O2 Delivery Mechanical Ventilator Mechanical Ventilator Mechanical Ventilator O2 Flow Rate 100.00 100.00 100.00 11/16/20 11/16/20 11/16/20 11/16/20 09:00 10:00 10:42 11:00 Temp 38.8 38.2 Pulse 123 114 130 Resp 19 24 15 B/P (MAP) Pulse Ox 100 98 98 O2 Delivery Mechanical Ventilator Mechanical Ventilator Mechanical Ventilator O2 Flow Rate 100.00 100.00 FiO2 100 100 11/16/20 11/16/20 11/16/20 11/16/20 12:00 13:00 13:00 13:37 Temp 38.0 37.8 Pulse 110 85 99 110 Resp 15 16 15 B/P (MAP) 136/85 Pulse Ox 98 98 O2 Delivery Mechanical Ventilator Mechanical Ventilator O2 Flow Rate 100.00 100.00 11/16/20 11/16/20 11/16/20 11/16/20 14:00 15:00 15:12 16:00 Temp 37.6 37.5 37.4 Pulse 84 86 77 84 Resp 13 10 24 18 B/P (MAP) Pulse Ox 98 98 99 98 O2 Delivery Mechanical Ventilator Mechanical Ventilator Mechanical Ventilator O2 Flow Rate 100.00 100.00 100.00 FiO2 80 11/16/20 17:00 Temp 37.4 Pulse 67 Resp 23 B/P (MAP) Pulse Ox 98 O2 Delivery Mechanical Ventilator O2 Flow Rate 100.00 11/16/20 00:00 Intake Total 1330 ml Output Total 450 ml Balance 880 ml Weight (Pounds): 281 Weight (Ounces): 0.0 Weight (Calculated Kilograms): 127.081831 Constitutional: other (intubated and sedated) Results/Procedures: Labs Laboratory Tests 11/15/20 23:28: Glucometer 112H 11/16/20 02:13: White Blood Count 5.2, Red Blood Count 2.93L, Hemoglobin 8.6L, Hematocrit 28L, Mean Corpuscular Volume 95, Mean Corpuscular Hemoglobin 29, Mean Corpuscular Hemoglobin Concent 31L, Red Cell Distribution Width 14.3, Platelet Count 231, Mean Platelet Volume 9.5, Immature Granulocyte % (Auto) 0, Neutrophils (%) (Auto) 66, Lymphocytes (%) (Auto) 21, Monocytes (%) (Auto) 7, Eosinophils (%) (Auto) 6, Basophils (%) (Auto) 0, Neutrophils # (Auto) 3.4, Lymphocytes # (Auto) 1.1, Monocytes # (Auto) 0.3, Eosinophils # (Auto) 0.3, Basophils # (Auto) 0.0, Immature Granulocyte # (Auto) 0.0, Blood Gas Puncture Site ARTLINE, Blood Gas Patient Temperature 37.9, Arterial Blood pH 7.40, Arterial Blood Partial Pressure CO2 47H, Arterial Blood Partial Pressure O2 69L, Arterial Blood HCO3 28H, Arterial Blood Total CO2 29.6, Arterial Blood Oxygen Saturation 89L, Arterial Blood Base Excess 3.9H, Hilario Test POSITIVE, Blood Gas Ventilator Setting YES, Blood Gas Inspired Oxygen 100, Sodium Level 140, Potassium Level 3.8, Chloride Level 105, Carbon Dioxide Level 26, Anion Gap 9, Blood Urea Nitrogen 5L, Creatinine 0.40L, Estimat Glomerular Filtration Rate > 60, BUN/Creatinine Ratio 13, Glucose Level 129H, Calcium Level 7.7L, Phosphorus Level 3.6, Magnesium Level 1.7 11/16/20 05:30: Urine Color YELLOW, Urine Clarity CLEAR, Urine pH 6.5, Urine Specific Te[place] 1.010L, Urine Protein NEGATIVE, Urine Glucose (UA) NEGATIVE, Urine Ketones NEGATIVE, Urine Nitrite NEGATIVE, Urine Bilirubin NEGATIVE, Urine Urobilinogen 4.0, Urine Leukocyte Esterase TRACEH, Urine RBC (Auto) NEGATIVE, Urine RBC NONE, Urine WBC 2-5, Urine Squamous Epithelial Cells RARE, Urine Crystals PRESENTH, Urine Triple Phosphate Crystals RAREH, Urine Bacteria TRACE, Urine Casts NONE, Urine Mucus NEGATIVE, Urine Yeast MODERATEH, Urine Culture Indicated YES 11/16/20 11:37: Glucometer 127H 11/16/20 17:40: Glucometer 123H Microbiology 11/16/20 Blood Culture - Preliminary, Resulted No growth 11/16/20 Gram Stain - Final, Resulted 11/16/20 Sputum Culture, Resulted Pending 10/29/20 Catheter Tip Culture - Final, Complete No growth 10/25/20 Urine Culture - Final, Complete NO GROWTH Laboratory Tests 11/15/20 01:45 11/16/20 02:13 A/P: Assessment: Acute respiratory failure due to COVID-19 pneumonia, ventilator dependent UTI - managment per medical services Atrial fibrillation with rapid ventricular response - rate fairly well controlled - continue IV Cardizem, change BB to IV [id number] score of 4, yearly risk of stroke without oral anticoagulation is 4.2 percent. Continue oral anticoagulation with Eliquis Diabetes mellitus, followed and managed by primary care physician Bronchial asthma/COPD Obesity Plan: Continue IV Cardizem Change BB to IV Management of UTI per ICU services Management of pneumonia/COVID per pulmonology Continue current cardiac regimen WING FRANCO MD FACP FAC CCDS Nov 16, 2020 18:03
[2020-11-16 18:22] VITALS: BP 114/63
[2020-11-16 21:47] VITALS: BP 133/68
[2020-11-17 01:37] LABS: BASOPHILS % (AUTO) 0 % (0-10); EOSINOPHILS # (AUTO) 0.3 10^3/uL (0.0-0.3); EOSINOPHILS % (AUTO) 4 % (0-10); HEMATOCRIT 29 % (35-52); HEMOGLOBIN 8.8 g/dL (11.5-16.0); LYMPHOCYTES # (AUTO) 1.1 10^3/uL (1.0-4.0); LYMPHOCYTES % (AUTO) 18 % (12-44); MEAN CORPUSCULAR HEMOGLOBIN 29 pg (25-34); MEAN CORPUSCULAR HGB CONC 31 g/dL (32-36); MEAN CORPUSCULAR VOLUME 94 fL (80-99); MEAN PLATELET VOLUME 9.5 fL (9.0-12.2); MONOCYTES # (AUTO) 0.5 10^3/uL (0.0-1.0); MONOCYTES % (AUTO) 8 % (0-12); NEUTROPHILS # (AUTO) 4.3 10^3/uL (1.8-7.8); NEUTROPHILS % (AUTO) 70 % (42-75); PLATELET COUNT 262 10^3/uL (130-400); WHITE BLOOD COUNT 6.2 10^3/uL (4.3-11.0)
[2020-11-17 01:38] LABS: ABG BASE EXCESS 2.8 MMOL/L (-2.5-2.5); ABG OXYGEN SATURATION 101 % (94-100); ABG PCO2 39 MMHG (35-45); ABG PH 7.45 (7.37-7.43); ABG PO2 283 MMHG (79-93); ABG TCO2 27.6 MMOL/L (21.0-31.0)
[2020-11-17 01:39] LABS: ALLENS TEST POSITIVE; INSPIRED O2 75; PATIENT TEMP 37.6; VENTILATOR YES
[2020-11-17 01:49] LABS: CHLORIDE 104 MMOL/L (98-107); POTASSIUM 3.7 MMOL/L (3.6-5.0); SODIUM 139 MMOL/L (135-145)
[2020-11-17 01:50] LABS: CALCIUM 7.9 MG/DL (8.5-10.1)
[2020-11-17 01:51] LABS: GLUCOSE 121 MG/DL (70-105)
[2020-11-17 01:52] LABS: CARBON DIOXIDE 23 MMOL/L (21-32)
[2020-11-17 01:54] LABS: CREATININE SERUM 0.39 MG/DL (0.60-1.30); GFR ESTIMATED > 60; PHOSPHORUS 4.2 MG/DL (2.3-4.7)
[2020-11-17 01:55] LABS: BUN/CREATININE RATIO 10
[2020-11-17 01:57] LABS: MAGNESIUM 1.7 MG/DL (1.6-2.4)
[2020-11-17 02:10] VITALS: BP 137/76
[2020-11-17] MEDS: RT-ALBUTEROL INHALER HFA (VENTOLIN HFA) 18 GM IH SCH ×6 (02:10→21:22)
[2020-11-17] MEDS: meTOprolol 5 MG/5 ML (LOPRESSOR) VIAL IV SCH (03:03)
[2020-11-17] MEDS: CISATRACURIUM INJECTION 100 MG in NS (IVPB) 200 ML IV SCH (03:03)
[2020-11-17] MEDS: MAGNESIUM 1 GM/100 ML IVPB 100 ML IV SCH ×2 (04:03→06:10)
--- NOTE | 2020-11-17 04:54 | Pulmonary Progress Note ---
Subjective Time Seen by a Provider: 04:48 Subjective/Events-last exam Pt is sedated on vent. Sepsis Event Evaluation Height, Weight, BMI Height: 5'4.00" Weight: 281lbs. 0.0oz. 127.340945hf; 74.00 BMI Method:Stated Exam Exam Vital Signs Date Time Temp Pulse Resp B/P (MAP) Pulse Ox O2 Delivery O2 Flow Rate FiO2 11/17/20 02:10 82 24 99 75 11/17/20 01:26 Mechanical Ventilator 75.00 11/17/20 01:00 81 11/16/20 23:00 37.7 80 23 99 Mechanical Ventilator 80.00 11/16/20 22:00 37.6 74 23 98 Mechanical Ventilator 80.00 11/16/20 21:47 84 24 98 80 11/16/20 21:00 37.5 80 24 99 Mechanical Ventilator 80.00 11/16/20 21:00 Mechanical Ventilator 80 11/16/20 20:07 85 123/69 11/16/20 20:00 Mechanical Ventilator 80.00 11/16/20 20:00 37.5 84 24 99 Mechanical Ventilator 80.00 11/16/20 19:00 71 11/16/20 19:00 37.3 71 23 99 Mechanical Ventilator 80.00 11/16/20 18:22 69 24 98 80 11/16/20 18:00 37.4 79 24 99 Mechanical Ventilator 100.00 11/16/20 17:00 37.4 67 23 98 Mechanical Ventilator 100.00 11/16/20 16:00 37.4 84 18 98 Mechanical Ventilator 100.00 11/16/20 15:12 77 24 99 80 11/16/20 15:00 37.5 86 10 98 Mechanical Ventilator 100.00 11/16/20 14:00 37.6 84 13 98 Mechanical Ventilator 100.00 11/16/20 13:37 110 15 136/85 11/16/20 13:00 99 11/16/20 13:00 37.8 85 16 98 Mechanical Ventilator 100.00 11/16/20 12:00 38.0 110 15 98 Mechanical Ventilator 100.00 11/16/20 11:00 38.2 130 15 98 Mechanical Ventilator 100.00 11/16/20 10:42 114 24 98 100 11/16/20 10:00 38.8 123 19 100 Mechanical Ventilator 100.00 11/16/20 09:00 Mechanical Ventilator 100 11/16/20 09:00 38.7 107 24 96 Mechanical Ventilator 100.00 11/16/20 08:00 38.7 134 31 94 Mechanical Ventilator 100.00 11/16/20 07:00 134 11/16/20 07:00 38.3 115 19 87 Mechanical Ventilator 100.00 Automatic Cuff 11/16/20 06:00 38.1 109 28 87 Mechanical Ventilator 100.00 11/16/20 06:00 113 27 85 100 11/16/20 05:00 37.8 93 13 90 Mechanical Ventilator 100.00 I & O 11/17/20 07:00 Intake Total 60 ml Output Total 3175 ml Balance -3115 ml Height & Weight Height: 5'4.00" Weight: 281lbs. 0.0oz. 127.569680uu; 74.00 BMI Method:Stated General Appearance: No Apparent Distress, WD/WN, Chronically ill, Obese HEENT: PERRL/EOMI, TMs Normal Neck: Limited Range of Motion Respiratory: Lungs Clear Cardiovascular: Regular Rate, Rhythm Capillary Refill: Less Than 3 Seconds Extremity: Pedal Edema, Swelling, Other (Anasarca) Neurologic/Psychiatric: Other (sedated) Skin: Normal Color, Warm/Dry Lymphatic: No Adenopathy Results Lab Laboratory Tests 11/16/20 02:13 11/17/20 01:25 Assessment/Plan Assessment/Plan Acute respiratory failure with ARDS secondary to COVID -Currently on Vent -Intubated 10/22 - Vt to 400 RR 24 currently 70% PEEP22 -Decrease PEEP to 18 -EICU managed pt through the night -proning -D/C Nimbex -Currently on Fentanyl and Versed -Continue TF per dietary recs -reglan -s/p Remdesivir, CVP -s/p Decadron PNA with serratia - resolving - s/p Merrem -s/p Vanco - Tacycardia -Currently on Cardizem gtt Hyperglycemia -Change Levemir to 10units BID -Continue SSI C Anemia -Monitor Afib RVR -Eliquis -Cardiology Decrease phos -Replace Morbid obesity GI/DVT ppx -Eliquis - Protonix EWDIN REIS DO Nov 17, 2020 04:54
[2020-11-17] MEDS: fentaNYL DRIP PRE-MIX 250 ML IV SCH ×5 (05:10→21:36)
[2020-11-17] MEDS: MIDAZOLAM DRIP PRE-MIX 100 ML IV SCH ×3 (05:12→21:37)
[2020-11-17] MEDS: meTOprolol TARTRATE 50 MG (LOPRESSOR) TAB PO SCH ×2 (05:18→20:25)
[2020-11-17] MEDS: POTASSIUM CL 10MEQ/50ML IVPB 50 ML IV SCH (06:10)
[2020-11-17] MEDS: KCL 20 MEQ TAB (K-DUR) PO SCH (06:11)
[2020-11-17] MEDS: inSUlin ASPART (NovoLOG) 1 UNIT/0.01 ML (CHARGE PER UNIT) SC SCH ×4 (06:11→23:18)
[2020-11-17 06:40] VITALS: BP 113/59
[2020-11-17] MEDS: IPRATROPIUM INHALER (ATROVENT) 12.9 GM INH SCH ×4 (06:41→19:06)
[2020-11-17] MEDS: dilTIAZem DRIP PRE-MIX 125 ML IV SCH ×3 (07:40→21:30)
--- NOTE | 2020-11-17 07:58 | Diagnostic Imaging Report ---
Indication: COVID pneumonia, respiratory distress Single AP view of chest is obtained with comparison made to study of one day earlier. Extensive bilateral airspace disease is again identified. There may be slight interval improvement in aeration of the lungs. Support tubes remain in stable position. IMPRESSION: Slight overall improvement in aeration of lungs however extensive bilateral airspace disease persists. Report was faxed to [facility] by yaneth at 7:58am. Dictated by: Dictated on workstation # [id number]
[2020-11-17] MEDS: DOCUSATE SODIUM 10 MG/ML 10 ML UDC (COLACE) PO SCH ×2 (08:00→20:25)
[2020-11-17] MEDS: ARTIFICIAL TEARS OINT (LACRI-LUBE) 3.5 GM TUBE OU SCH ×2 (08:00→20:26)
[2020-11-17] MEDS: FAMOTIDINE 20MG/2ML IV (PEPCID) IV SCH ×2 (08:00→20:25)
[2020-11-17] MEDS: MICONAZOLE NITRATE 2% CRM 30 GM TP SCH ×2 (08:01→20:27)
[2020-11-17] MEDS: ASPIRIN 81 MG CHEW (CHILDREN'S ASA) PO SCH (08:01)
[2020-11-17] MEDS: APIXABAN 5 MG (ELIQUIS) TABLET PO SCH ×2 (08:01→20:25)
[2020-11-17] MEDS: MICONAZOLE 2% POWDER (DESENEX AF) 90 GM TOP SCH ×2 (08:01→20:27)
--- NOTE | 2020-11-17 09:41 | Progress Note - Cardiology ---
Cardiology SOAP Progress Note Subjective: Intubated and sedated Spoke with nurse Naomi this morning HR is better controlled today Pt is currently supine Objective: I&O/Vital Signs Weight (Pounds): 281 Weight (Ounces): 0.0 Weight (Calculated Kilograms): 127.611337 Constitutional: other (intubated and sedated) Results/Procedures: Labs Microbiology 11/16/20 Blood Culture - Final, Complete No growth 11/16/20 Gram Stain - Final, Complete 11/16/20 Sputum Culture - Final, Complete Staphylococcus aureus Serratia marcescens 11/16/20 Urine Culture - Final, Complete YEAST 10/29/20 Catheter Tip Culture - Final, Complete No growth A/P: Assessment: Acute respiratory failure due to COVID-19 pneumonia, ventilator dependent UTI - managment per medical services Atrial fibrillation with rapid ventricular response - rate fairly well controlled - continue IV Cardizem, change BB to IV [id number] score of 4, yearly risk of stroke without oral anticoagulation is 4.2 percent. Continue oral anticoagulation with Eliquis Diabetes mellitus, followed and managed by primary care physician Bronchial asthma/COPD Obesity Plan: Continue IV Cardizem BB has been changed back to oral per pulmonary services Management of UTI per ICU services Management of pneumonia/COVID per pulmonology Continue current cardiac regimen BABAK SILVA Nov 17, 2020 09:41
--- NOTE | 2020-11-17 10:02 | Physical Therapy Progress Note ---
Therapy Progress Note Non skilled PROM performed all available planes B U/CARI. ROXANE LONGORIA PT Nov 17, 2020 10:02
[2020-11-17 10:36] VITALS: BP 142/72
--- NOTE | 2020-11-17 13:12 | NUR ---
Received phone call from Dyllan, password obtained.. Updates given and questions answered. Dyllan states he has no further questions or concerns at this time.
[2020-11-17] MEDS: ACETAMINOPHEN 650 MG SUPP (TYLENOL) PR PRN (14:50)
[2020-11-17 15:04] VITALS: BP 108/80
--- NOTE | 2020-11-17 18:23 | Progress Note - Cardiology ---
Cardiology SOAP Progress Note [facility] Objective: I&O/Vital Signs 11/17/20 11/17/20 11/17/20 11/17/20 06:30 06:40 06:45 07:00 Temp 37.7 37.7 37.8 Pulse 73 69 78 73 Resp 24 B/P (MAP) Pulse Ox 98 98 96 91 O2 Delivery Mechanical Ventilator O2 Flow Rate 75.00 FiO2 60 11/17/20 11/17/20 11/17/20 11/17/20 07:00 07:15 07:30 07:45 Temp 37.8 37.8 37.8 Pulse 81 80 79 75 Resp 12 B/P (MAP) Pulse Ox 87 90 83 11/17/20 11/17/20 11/17/20 11/17/20 08:00 08:15 08:30 08:45 Temp 37.8 37.9 37.8 37.8 Pulse 83 77 77 73 Resp B/P (MAP) Pulse Ox 95 96 97 97 O2 Delivery Mechanical Ventilator O2 Flow Rate 75.00 11/17/20 11/17/20 11/17/20 11/17/20 09:00 09:00 09:15 09:30 Temp 37.7 37.8 37.8 Pulse 76 94 96 Resp 24 6 B/P (MAP) Pulse Ox 97 93 94 O2 Delivery Mechanical Ventilator Mechanical Ventilator O2 Flow Rate 75.00 FiO2 80 11/17/20 11/17/20 11/17/20 11/17/20 09:45 10:00 10:15 10:30 Temp 37.8 37.8 38 38.1 Pulse 77 117 112 124 Resp 37 32 19 B/P (MAP) Pulse Ox 91 91 91 93 O2 Delivery Mechanical Ventilator O2 Flow Rate 75.00 11/17/20 11/17/20 11/17/20 11/17/20 10:36 10:45 11:00 11:15 Temp 38.1 38.1 38.2 Pulse 123 98 115 99 Resp 24 B/P (MAP) Pulse Ox 94 95 96 96 O2 Delivery Mechanical Ventilator O2 Flow Rate 75.00 FiO2 70 11/17/20 11/17/20 11/17/20 11/17/20 11:30 11:45 12:00 12:15 Temp 38.1 38.2 38.1 38.2 Pulse 107 93 94 121 Resp 24 B/P (MAP) Pulse Ox 97 97 97 98 O2 Delivery Mechanical Ventilator O2 Flow Rate 75.00 11/17/20 11/17/20 11/17/20 11/17/20 12:30 12:45 13:00 13:00 Temp 38.2 38.2 38.3 Pulse 101 106 112 107 Resp B/P (MAP) Pulse Ox 98 98 98 O2 Delivery Mechanical Ventilator O2 Flow Rate 75.00 11/17/20 11/17/20 11/17/20 11/17/20 13:15 13:27 13:30 13:45 Temp 38.3 38.3 38.3 Pulse 93 112 100 95 Resp B/P (MAP) 142/72 Pulse Ox 98 98 98 11/17/20 11/17/20 11/17/20 11/17/20 14:00 14:15 14:30 14:45 Temp 38.4 38.5 38.5 38.5 Pulse 102 111 115 116 Resp B/P (MAP) Pulse Ox 98 98 98 97 O2 Delivery Mechanical Ventilator O2 Flow Rate 75.00 11/17/20 11/17/20 11/17/20 11/17/20 14:50 15:00 15:04 15:15 Temp 38.5 38.4 38.4 Pulse 115 120 98 Resp B/P (MAP) Pulse Ox 98 97 96 O2 Delivery Mechanical Ventilator O2 Flow Rate 75.00 FiO2 60 11/17/20 11/17/20 11/17/20 11/17/20 15:30 15:39 15:45 16:00 Temp 38.4 38.4 38.4 38.4 Pulse 98 110 89 Resp B/P (MAP) Pulse Ox 96 97 97 O2 Delivery Mechanical Ventilator O2 Flow Rate 75.00 11/17/20 11/17/20 11/17/20 11/17/20 16:01 16:16 16:31 16:46 Temp 38.4 38.3 38.3 38.2 Pulse 98 103 93 125 Resp B/P (MAP) Pulse Ox 98 98 98 98 O2 Delivery Mechanical Ventilator O2 Flow Rate 75.00 11/17/20 11/17/20 11/17/20 11/17/20 17:00 17:15 17:30 17:45 Temp 38.2 38.2 38.1 38.1 Pulse 135 122 117 102 Resp 66 17 16 24 B/P (MAP) Pulse Ox 96 96 96 96 11/17/20 18:00 Temp 38.1 Pulse 106 Resp 19 B/P (MAP) Pulse Ox 96 O2 Delivery Mechanical Ventilator O2 Flow Rate 75.00 11/17/20 00:00 Output Total 825 ml Balance -825 ml Weight (Pounds): 281 Weight (Ounces): 0.0 Weight (Calculated Kilograms): 127.004063 Constitutional: other (intubated and sedated) Results/Procedures: Labs Laboratory Tests 11/16/20 23:33: Glucometer 107 11/17/20 01:25: White Blood Count 6.2, Red Blood Count 3.03L, Hemoglobin 8.8L, Hematocrit 29L, Mean Corpuscular Volume 94, Mean Corpuscular Hemoglobin 29, Mean Corpuscular Hemoglobin Concent 31L, Red Cell Distribution Width 14.4, Platelet Count 262, Mean Platelet Volume 9.5, Immature Granulocyte % (Auto) 1, Neutrophils (%) (Auto) 70, Lymphocytes (%) (Auto) 18, Monocytes (%) (Auto) 8, Eosinophils (%) (Auto) 4, Basophils (%) (Auto) 0, Neutrophils # (Auto) 4.3, Lymphocytes # (Auto) 1.1, Monocytes # (Auto) 0.5, Eosinophils # (Auto) 0.3, Basophils # (Auto) 0.0, Immature Granulocyte # (Auto) 0.0, Blood Gas Puncture Site ARTLINE, Blood Gas Patient Temperature 37.6, Arterial Blood pH 7.45H, Arterial Blood Partial Pressure CO2 39, Arterial Blood Partial Pressure O2 283H, Arterial Blood HCO3 26, Arterial Blood Total CO2 27.6, Arterial Blood Oxygen Saturation 101H, Arterial Blood Base Excess 2.8H, Hilario Test POSITIVE, Blood Gas Ventilator Setting YES, Blood Gas Inspired Oxygen 75, Sodium Level 139, Potassium Level 3.7, Chloride Level 104, Carbon Dioxide Level 23, Anion Gap 12, Blood Urea Nitrogen 4L, Creatinine 0.39L, Estimat Glomerular Filtration Rate > 60, BUN/Creatinine Ratio 10, Glucose Level 121H, Calcium Level 7.9L, Phosphorus Level 4.2, Magnesium Level 1.7 11/17/20 11:15: Glucometer 112H 11/17/20 17:12: Glucometer 120H Microbiology 11/16/20 Blood Culture - Preliminary, Resulted No growth 11/16/20 Gram Stain - Final, Resulted 11/16/20 Sputum Culture - Preliminary, Resulted Staphylococcus aureus Serratia marcescens 11/16/20 Urine Culture - Final, Complete YEAST 10/29/20 Catheter Tip Culture - Final, Complete No growth A/P: Assessment: Acute respiratory failure due to COVID-19 pneumonia, ventilator dependent UTI - managment per medical services Atrial fibrillation with rapid ventricular response - rate fairly well controlled - continue IV Cardizem, change BB to IV [id number] score of 4, yearly risk of stroke without oral anticoagulation is 4.2 percent. Continue oral anticoagulation with Eliquis Diabetes mellitus, followed and managed by primary care physician Bronchial asthma/COPD Obesity Plan: Continue IV Cardizem Heart rate is better controlled today. BB has been changed back to oral by the Pulmonary services Management of UTI per ICU services Management of pneumonia/COVID per Pulmonology Continue current cardiac regimen WING FRANCO MD FACP FAC CCDS Nov 17, 2020 18:23
[2020-11-17 19:06] VITALS: BP 137/82
[2020-11-17 21:22] VITALS: BP 121/76
[2020-11-18] MEDS: ACETAMINOPHEN 650 MG SUPP (TYLENOL) PR PRN (00:01)
[2020-11-18] MEDS: RT-ALBUTEROL INHALER HFA (VENTOLIN HFA) 18 GM IH SCH ×5 (01:39→17:48)
[2020-11-18 01:40] VITALS: BP 121/76
[2020-11-18] MEDS: fentaNYL DRIP PRE-MIX 250 ML IV SCH ×5 (03:05→18:28)
[2020-11-18] MEDS: LACTATED RINGERS 1,000 ML IV SCH (03:06)
[2020-11-18 03:44] LABS: ABG BASE EXCESS -0.5 MMOL/L (-2.5-2.5); ABG OXYGEN SATURATION 100 % (94-100); ABG PCO2 39 MMHG (35-45); ABG PO2 185 MMHG (79-93); ABG TCO2 24.8 MMOL/L (21.0-31.0)
[2020-11-18 03:45] LABS: INSPIRED O2 75%; PATIENT TEMP 37.3; VENTILATOR YES
[2020-11-18] MEDS: dilTIAZem DRIP PRE-MIX 125 ML IV SCH ×2 (04:32→10:45)
[2020-11-18] MEDS: MIDAZOLAM DRIP PRE-MIX 100 ML IV SCH ×3 (04:32→20:28)
[2020-11-18 05:22] LABS: BASOPHILS % (AUTO) 0 % (0-10); EOSINOPHILS # (AUTO) 0.2 10^3/uL (0.0-0.3); EOSINOPHILS % (AUTO) 4 % (0-10); HEMATOCRIT 27 % (35-52); HEMOGLOBIN 8.1 g/dL (11.5-16.0); LYMPHOCYTES # (AUTO) 1.1 10^3/uL (1.0-4.0); LYMPHOCYTES % (AUTO) 22 % (12-44); MEAN CORPUSCULAR HEMOGLOBIN 30 pg (25-34); MEAN CORPUSCULAR HGB CONC 31 g/dL (32-36); MEAN CORPUSCULAR VOLUME 97 fL (80-99); MEAN PLATELET VOLUME 9.4 fL (9.0-12.2); MONOCYTES # (AUTO) 0.5 10^3/uL (0.0-1.0); MONOCYTES % (AUTO) 9 % (0-12); NEUTROPHILS # (AUTO) 3.4 10^3/uL (1.8-7.8); NEUTROPHILS % (AUTO) 65 % (42-75); PLATELET COUNT 255 10^3/uL (130-400); WHITE BLOOD COUNT 5.2 10^3/uL (4.3-11.0)
[2020-11-18 05:40] LABS: BUN/CREATININE RATIO 14; CALCIUM 7.9 MG/DL (8.5-10.1); CARBON DIOXIDE 26 MMOL/L (21-32); CHLORIDE 106 MMOL/L (98-107); CREATININE SERUM 0.36 MG/DL (0.60-1.30); GFR ESTIMATED > 60; GLUCOSE 115 MG/DL (70-105); MAGNESIUM 1.6 MG/DL (1.6-2.4); POTASSIUM 3.5 MMOL/L (3.6-5.0); SODIUM 140 MMOL/L (135-145)
[2020-11-18 06:46] VITALS: BP 106/56
[2020-11-18] MEDS: POTASSIUM CL 10MEQ/50ML IVPB 50 ML IV SCH (06:49)
[2020-11-18] MEDS: KCL 20 MEQ TAB (K-DUR) PO SCH (06:50)
[2020-11-18] MEDS: inSUlin ASPART (NovoLOG) 1 UNIT/0.01 ML (CHARGE PER UNIT) SC SCH ×3 (06:50→17:40)
[2020-11-18] MEDS: MAGNESIUM 1 GM/100 ML IVPB 100 ML IV SCH (06:50)
--- NOTE | 2020-11-18 07:11 | Progress Note - Hospitalist ---
Subjective HPI/CC On Admission Date Seen by Provider: Nov 18, 2020 Time Seen by Provider: 11:10 CC: Respiratory failure due to COVID-19 PNA HPI: This is a 45 yoWF clinic patient of [facility] who presents to the ER with dyspnea and hypoxia and rapid heart rate. AF w/RVR dx and COVID swab was positive. Patient was placed in the ICU for Cardiology management with rate management drips and required hi-martina O2 then Vapotherm and then biPAP. She is tachypneic and pursed lip breathing and is struggling to breath and I talk to her about the ventilator and she is agreeable for the plan for intubation and supportive care. Subjective/Events-last exam Difficulty oxygenation today PEEP 22 day before and 18 today Holding proning today s/p abx regimen completed and wbc normal Eliquis maintained Objective Exam Vital Signs Vital Signs Date Time Temp Pulse Resp B/P (MAP) Pulse Ox O2 Delivery O2 Flow Rate FiO2 11/19/20 17:40 152 11/19/20 15:00 38.3 14 85 Mechanical Ventilator 100.00 11/19/20 13:58 100 Capillary Refill : Less Than 3 Seconds General Appearance: No Apparent Distress, WD/WN, Chronically ill, Obese, Other (sedated) Respiratory: Decreased Breath Sounds Cardiovascular: Regular Rate, Rhythm Results/Procedures Lab Laboratory Tests 11/19/20 03:05 Patient resulted labs reviewed. Imaging: Reviewed Imaging Films, Reviewed Imaging Report Assessment/Plan Assessment and Plan Assess & Plan/Chief Complaint Assessment: Respiratory failure requiring intubation due to failure on biPAP COVID-19 PNA AF w/RVR Hypoxia DM Obesity Plan: COVID-19 treatment Intubation Lovenox Monitor closely Cardiology consultation 10/24/20: Intubation Sedation management Monitor BP Prone schedule 10/25/20: Monitor closely Temperature management 11/06/20: Maintain vent Aggressive care continues 11/07/20: Monitor O2 and BP Vent wean or Lamoni 11/18/20: Difficult wean Hold proning OAC Critical Care Critically Ill Patient Diagnosis/Problems Diagnosis/Problems (1) COVID-19 Status: Acute (2) Atrial fibrillation with RVR Status: Acute (3) Respiratory distress Status: Acute Clinical Quality Measures DVT/VTE Risk/Contraindication: Risk Factor Score Per Nursin RFS Level Per Nursing on Admit: 4+=Very High LAMIN PALACIO DO Nov 18, 2020 07:11
[2020-11-18] MEDS: FAMOTIDINE 20MG/2ML IV (PEPCID) IV SCH ×2 (07:43→20:32)
[2020-11-18] MEDS: DOCUSATE SODIUM 10 MG/ML 10 ML UDC (COLACE) PO SCH ×2 (07:43→20:32)
[2020-11-18] MEDS: ASPIRIN 81 MG CHEW (CHILDREN'S ASA) PO SCH (07:44)
[2020-11-18] MEDS: MICONAZOLE 2% POWDER (DESENEX AF) 90 GM TOP SCH ×2 (07:44→20:35)
[2020-11-18] MEDS: ARTIFICIAL TEARS OINT (LACRI-LUBE) 3.5 GM TUBE OU SCH ×2 (07:45→20:34)
[2020-11-18] MEDS: MICONAZOLE NITRATE 2% CRM 30 GM TP SCH ×2 (07:46→20:35)
--- NOTE | 2020-11-18 07:48 | Diagnostic Imaging Report ---
INDICATION: Hypoxemia Portable chest 1:43 AM ET tube projects over the trachea. NG tube enters the stomach. Left upper extremity PICC line tip projects over the SVC. There are diffuse alveolar infiltrates in the lungs. There appears to be slight interval improvement compared to the previous day. IMPRESSION: Diffuse pulmonary infiltrates with slight interval improvement. Dictated by: Dictated on workstation # [id number]
[2020-11-18] MEDS: meTOprolol TARTRATE 50 MG (LOPRESSOR) TAB PO SCH ×2 (07:49→20:32)
[2020-11-18] MEDS: APIXABAN 5 MG (ELIQUIS) TABLET PO SCH ×2 (07:50→20:32)
--- NOTE | 2020-11-18 09:29 | NUR ---
Permission for pt to trial supine with turns q2 after reviewing pt's chart with ROGERIO Yang.
--- NOTE | 2020-11-18 09:39 | Physical Therapy Progress Note ---
Therapy Progress Note Non skilled PROM B U/LE all available planes. ROXANE LONGORIA PT Nov 18, 2020 09:39
[2020-11-18] MEDS: IPRATROPIUM INHALER (ATROVENT) 12.9 GM INH SCH ×4 (10:47→17:48)
[2020-11-18 10:48] VITALS: BP 114/62
[2020-11-18] MEDS ORDERED: dilTIAZem DRIP PRE-MIX 125 ML IV PRN (14:00)
--- NOTE | 2020-11-18 14:15 | Progress Note - Cardiology ---
Cardiology SOAP [facility] Objective: I&O/Vital Signs 11/18/20 11/18/20 11/18/20 11/18/20 03:00 04:00 04:32 05:00 Temp 37.3 37.2 37.0 Pulse 93 86 76 87 Resp 26 21 29 25 B/P (MAP) 128/76 Pulse Ox 97 98 99 O2 Delivery Mechanical Ventilator Mechanical Ventilator Mechanical Ventilator O2 Flow Rate 75.00 75.00 75.00 11/18/20 11/18/20 11/18/20 11/18/20 06:00 06:33 06:46 07:00 Temp 36.9 36.9 Pulse 85 78 74 80 Resp 23 24 23 B/P (MAP) Pulse Ox 97 95 96 O2 Delivery Mechanical Ventilator Mechanical Ventilator O2 Flow Rate 75.00 75.00 FiO2 60 11/18/20 11/18/20 11/18/20 11/18/20 08:00 08:00 09:00 10:00 Temp 37.1 37.2 37.3 Pulse 93 67 63 Resp 23 B/P (MAP) Pulse Ox 93 96 96 O2 Delivery Mechanical Ventilator Mechanical Ventilator Mechanical Ventilator Mechanical Ventilator O2 Flow Rate 75.00 75.00 75.00 FiO2 80 11/18/20 11/18/20 11/18/20 10:45 10:48 11:00 Temp 37.4 Pulse 84 73 75 Resp 24 15 B/P (MAP) Pulse Ox 95 94 O2 Delivery Mechanical Ventilator O2 Flow Rate 75.00 FiO2 50 11/18/20 00:00 Output Total 850 ml Balance -850 ml Weight (Pounds): 281 Weight (Ounces): 0.0 Weight (Calculated Kilograms): 127.140478 Constitutional: other (intubated and sedated) Results/Procedures: Labs Laboratory Tests 11/17/20 17:12: Glucometer 120H 11/17/20 21:04: Glucometer 115H 11/17/20 23:14: Glucometer 119H 11/18/20 03:15: Blood Gas Puncture Site ART LINE, Blood Gas Patient Temperature 37.3, Arterial Blood pH 7.40, Arterial Blood Partial Pressure CO2 39, Arterial Blood Partial Pressure O2 185H, Arterial Blood HCO3 24, Arterial Blood Total CO2 24.8, Arterial Blood Oxygen Saturation 100, Arterial Blood Base Excess -0.5, Hilario Test N/A, Blood Gas Ventilator Setting YES, Blood Gas Inspired Oxygen 75% 11/18/20 05:10: White Blood Count 5.2, Red Blood Count 2.74L, Hemoglobin 8.1L, Hematocrit 27L, Mean Corpuscular Volume 97, Mean Corpuscular Hemoglobin 30, Mean Corpuscular Hemoglobin Concent 31L, Red Cell Distribution Width 14.6H, Platelet Count 255, Mean Platelet Volume 9.4, Immature Granulocyte % (Auto) 0, Neutrophils (%) (Auto) 65, Lymphocytes (%) (Auto) 22, Monocytes (%) (Auto) 9, Eosinophils (%) (Auto) 4, Basophils (%) (Auto) 0, Neutrophils # (Auto) 3.4, Lymphocytes # (Auto) 1.1, Monocytes # (Auto) 0.5, Eosinophils # (Auto) 0.2, Basophils # (Auto) 0.0, Immature Granulocyte # (Auto) 0.0, Sodium Level 140, Potassium Level 3.5L, Chloride Level 106, Carbon Dioxide Level 26, Anion Gap 8, Blood Urea Nitrogen 5L , Creatinine 0.36L, Estimat Glomerular Filtration Rate > 60, BUN/Creatinine Ratio 14, Glucose Level 115H, Calcium Level 7.9L, Phosphorus Level 4.0, Magnesium Level 1.6 11/18/20 12:05: Glucometer 124H Microbiology 11/16/20 Blood Culture - Preliminary, Resulted No growth 11/16/20 Gram Stain - Final, Resulted 11/16/20 Sputum Culture - Preliminary, Resulted Staphylococcus aureus Serratia marcescens 11/16/20 Urine Culture - Final, Complete YEAST 10/29/20 Catheter Tip Culture - Final, Complete No growth Laboratory Tests 11/17/20 01:25 11/18/20 05:10 A/P: Assessment: Acute respiratory failure due to COVID-19 pneumonia, ventilator dependent UTI - managment per medical services Atrial fibrillation with rapid ventricular response - controlled [id number] score of 4, yearly risk of stroke without oral anticoagulation is 4.2 percent. Continue oral anticoagulation with Eliquis Diabetes mellitus, followed and managed by primary care physician Bronchial asthma/COPD Obesity Plan: D/c iv cardizem. Change to oral cardizem. Will use tablets because they have to administered down the NGT Continue bb Replenish lytes Monitor labs WING FRANCO MD FACP FACC CCDS Nov 18, 2020 14:14
[2020-11-18 14:53] VITALS: BP 120/64
[2020-11-18] MEDS: METOCLOPRAMIDE INJ 10 MG/2 ML (REGLAN) IVP SCH ×2 (15:24→21:02)
[2020-11-18] MEDS: APAP 325 MG/10.15 ML LIQ (TYLENOL) UDC PO PRN (15:49)
[2020-11-18 17:48] VITALS: BP 120/59
[2020-11-18 17:51] VITALS: BP 120/59
[2020-11-19 00:03] VITALS: BP 112/62
[2020-11-19] MEDS: RT-ALBUTEROL INHALER HFA (VENTOLIN HFA) 18 GM IH SCH ×7 (00:03→23:16)
[2020-11-19] MEDS: fentaNYL DRIP PRE-MIX 250 ML IV SCH ×6 (00:30→21:44)
[2020-11-19] MEDS: inSUlin ASPART (NovoLOG) 1 UNIT/0.01 ML (CHARGE PER UNIT) SC SCH ×4 (00:55→18:00)
[2020-11-19 03:03] VITALS: BP 119/66
[2020-11-19 03:24] LABS: ABG BASE EXCESS 2.4 MMOL/L (-2.5-2.5); ABG OXYGEN SATURATION 87 % (94-100); ABG PCO2 49 MMHG (35-45); ABG PH 7.36 (7.37-7.43); ABG PO2 64 MMHG (79-93); ABG TCO2 28.6 MMOL/L (21.0-31.0)
[2020-11-19 03:25] LABS: ALLENS TEST ART LINE; INSPIRED O2 70%; PATIENT TEMP 37.5; VENTILATOR YES
[2020-11-19 03:31] LABS: BASOPHILS % (AUTO) 0 % (0-10); EOSINOPHILS # (AUTO) 0.2 10^3/uL (0.0-0.3); EOSINOPHILS % (AUTO) 4 % (0-10); HEMATOCRIT 30 % (35-52); HEMOGLOBIN 9.1 g/dL (11.5-16.0); LYMPHOCYTES # (AUTO) 1.3 10^3/uL (1.0-4.0); LYMPHOCYTES % (AUTO) 25 % (12-44); MEAN CORPUSCULAR HEMOGLOBIN 30 pg (25-34); MEAN CORPUSCULAR HGB CONC 30 g/dL (32-36); MEAN CORPUSCULAR VOLUME 97 fL (80-99); MEAN PLATELET VOLUME 9.9 fL (9.0-12.2); MONOCYTES # (AUTO) 0.5 10^3/uL (0.0-1.0); MONOCYTES % (AUTO) 9 % (0-12); NEUTROPHILS % (AUTO) 60 % (42-75); PLATELET COUNT 265 10^3/uL (130-400)
[2020-11-19 03:38] LABS: CHLORIDE 104 MMOL/L (98-107); SODIUM 139 MMOL/L (135-145)
[2020-11-19 03:39] LABS: CALCIUM 8.1 MG/DL (8.5-10.1)
[2020-11-19 03:40] LABS: GLUCOSE 124 MG/DL (70-105)
[2020-11-19 03:41] LABS: CARBON DIOXIDE 25 MMOL/L (21-32)
[2020-11-19 03:43] LABS: PHOSPHORUS 4.2 MG/DL (2.3-4.7)
[2020-11-19 03:44] LABS: CREATININE SERUM 0.42 MG/DL (0.60-1.30); GFR ESTIMATED > 60
[2020-11-19 03:45] LABS: BUN/CREATININE RATIO 14
[2020-11-19 03:46] LABS: MAGNESIUM 1.8 MG/DL (1.6-2.4)
[2020-11-19] MEDS: MIDAZOLAM DRIP PRE-MIX 100 ML IV SCH ×3 (03:52→17:33)
[2020-11-19] MEDS: MAGNESIUM 1 GM/100 ML IVPB 100 ML IV SCH (04:11)
[2020-11-19] MEDS: POTASSIUM CL 10MEQ/50ML IVPB 50 ML IV SCH (04:11)
[2020-11-19] MEDS: KCL 20 MEQ TAB (K-DUR) PO SCH (04:12)
[2020-11-19] MEDS: METOCLOPRAMIDE INJ 10 MG/2 ML (REGLAN) IVP SCH (06:01)
[2020-11-19 07:51] VITALS: BP 129/72
[2020-11-19] MEDS: IPRATROPIUM INHALER (ATROVENT) 12.9 GM INH SCH ×4 (07:51→23:16)
[2020-11-19] MEDS: LACTATED RINGERS 1,000 ML IV SCH (07:59)
[2020-11-19] MEDS: meTOprolol TARTRATE 50 MG (LOPRESSOR) TAB PO SCH ×2 (08:00→20:40)
[2020-11-19] MEDS: DOCUSATE SODIUM 10 MG/ML 10 ML UDC (COLACE) PO SCH ×2 (08:00→20:40)
[2020-11-19] MEDS: FAMOTIDINE 20MG/2ML IV (PEPCID) IV SCH ×2 (08:00→20:46)
[2020-11-19] MEDS: MICONAZOLE 2% POWDER (DESENEX AF) 90 GM TOP SCH ×2 (08:01→20:47)
[2020-11-19] MEDS: APIXABAN 5 MG (ELIQUIS) TABLET PO SCH ×2 (08:01→20:40)
[2020-11-19] MEDS: MICONAZOLE NITRATE 2% CRM 30 GM TP SCH ×2 (08:01→20:48)
[2020-11-19] MEDS: ARTIFICIAL TEARS OINT (LACRI-LUBE) 3.5 GM TUBE OU SCH ×5 (08:01→23:20)
[2020-11-19] MEDS: ASPIRIN 81 MG CHEW (CHILDREN'S ASA) PO SCH (08:01)
[2020-11-19] MEDS: APAP 325 MG/10.15 ML LIQ (TYLENOL) UDC PO PRN ×3 (08:04→20:40)
--- NOTE | 2020-11-19 09:01 | Diagnostic Imaging Report ---
INDICATION: Hypoxia EXAMINATION: Chest 11/19/2020 Comparison made to 11/18/2020 FINDINGS: ET tube stable. Feeding tube is not well seen distally. Heart is prominent. Pulmonary vasculature is congested. There are findings of edema throughout both lungs. No significant pleural effusions. IMPRESSION: 1. Pulmonary edema and scattered infiltrates not excluded. Dictated by: Dictated on workstation # [id number]
[2020-11-19 10:41] VITALS: BP 96/55
--- NOTE | 2020-11-19 11:40 | Progress Note - Hospitalist ---
Subjective HPI/CC On Admission Date Seen by Provider: Nov 19, 2020 Time Seen by Provider: 10:00 CC: Respiratory failure due to COVID-19 PNA HPI: This is a 45 yoWF clinic patient of [facility] who presents to the ER with dyspnea and hypoxia and rapid heart rate. AF w/RVR dx and COVID swab was positive. Patient was placed in the ICU for Cardiology management with rate management drips and required hi-martina O2 then Vapotherm and then biPAP. She is tachypneic and pursed lip breathing and is struggling to breath and I talk to her about the ventilator and she is agreeable for the plan for intubation and supportive care. Subjective/Events-last exam NO major changes Will speak to family tomorrow about terminal extubation since today is [place] No signs of recovery or wean potential FiO2 at 100% Needs DNR Objective Exam Vital Signs Vital Signs Date Time Temp Pulse Resp B/P (MAP) Pulse Ox O2 Delivery O2 Flow Rate FiO2 11/20/20 06:00 37.6 101 28 149/74 (99) 96 Mechanical Ventilator 100.00 11/20/20 03:00 100 Capillary Refill : Less Than 3 Seconds General Appearance: Chronically ill, Obese Respiratory: Normal Breath Sounds, Decreased Breath Sounds Cardiovascular: Regular Rate, Rhythm Results/Procedures Lab Laboratory Tests 11/20/20 03:10 Patient resulted labs reviewed. Imaging: Reviewed Imaging Films, Reviewed Imaging Report Assessment/Plan Assessment and Plan Assess & Plan/Chief Complaint Assessment: Respiratory failure requiring intubation due to failure on biPAP COVID-19 PNA AF w/RVR Hypoxia DM Obesity Plan: COVID-19 treatment Intubation Lovenox Monitor closely Cardiology consultation 10/24/20: Intubation Sedation management Monitor BP Prone schedule 10/25/20: Monitor closely Temperature management 11/06/20: Maintain vent Aggressive care continues 11/07/20: Monitor O2 and BP Vent wean or Zalma 11/18/20: Difficult wean Hold proning OAC Vent wean or Zalma 11/19/20: No evidence of recovery Will speak to family about terminal extubation and DNR tomorrow Critical Care Critically Ill Patient Diagnosis/Problems Diagnosis/Problems (1) COVID-19 Status: Acute (2) Atrial fibrillation with RVR Status: Acute (3) Respiratory distress Status: Acute Clinical Quality Measures DVT/VTE Risk/Contraindication: Risk Factor Score Per Nursin RFS Level Per Nursing on Admit: 4+=Very High PALACIO,LAMIN DO Nov 19, 2020 11:40
[2020-11-19 13:58] VITALS: BP 110/58
--- NOTE | 2020-11-19 14:00 | NUR ---
This RN asked Respiratory to evaluate pt as her sats were steady in the 80's. After suctioning, irrigating and repositioning, pt dropped to the 70's. 1415- EICU called and orders received.
[2020-11-19] MEDS ORDERED: FUROSEMIDE 40 MG/4 ML INJ (LASIX) ONE ×2 (14:27→14:30)
[2020-11-19] MEDS ORDERED: PROPOFOL DRIP (ICU) 100 ML IV SCH (14:30)
[2020-11-19] MEDS ORDERED: FUROSEMIDE 40 MG/4 ML INJ (LASIX) IVP ONE ×2 (14:30→21:00)
[2020-11-19] MEDS ORDERED: NOREPINEPHRINE 4 MG/250 ML 250 ML IV ONE (14:43)
[2020-11-19] MEDS: CISATRACURIUM INJECTION 100 MG in NS (IVPB) 200 ML IV SCH ×3 (15:06→21:07)
[2020-11-19] MEDS ORDERED: ARTIFICIAL TEARS OINT (LACRI-LUBE) 3.5 GM TUBE OU SCH (16:00)
--- NOTE | 2020-11-19 16:30 | Progress Note - Cardiology ---
Cardiology SOAP [facility] Objective: I&O/Vital Signs 11/19/20 11/19/20 11/19/20 11/19/20 05:00 06:00 06:15 06:30 Temp 37.8 37.6 37.6 37.6 Pulse 120 103 112 116 Resp 24 23 24 24 B/P (MAP) Pulse Ox 91 91 90 88 O2 Delivery Mechanical Ventilator Mechanical Ventilator O2 Flow Rate 70.00 70.00 11/19/20 11/19/20 11/19/20 11/19/20 06:45 07:00 07:00 07:15 Temp 37.7 37.7 37.7 Pulse 101 97 87 Resp 24 23 23 B/P (MAP) Pulse Ox 89 90 90 O2 Delivery Mechanical Ventilator O2 Flow Rate 70.00 11/19/20 11/19/20 11/19/20 11/19/20 07:30 07:45 07:51 08:00 Temp 37.7 37.7 37.9 Pulse 113 116 137 144 Resp 24 24 B/P (MAP) Pulse Ox 91 91 89 91 O2 Delivery Mechanical Ventilator O2 Flow Rate 70.00 FiO2 85 11/19/20 11/19/20 11/19/20 11/19/20 08:04 08:15 08:30 08:45 Temp 37.9 38 38 38 Pulse 154 113 112 Resp 28 B/P (MAP) 11/19/20 11/19/20 11/19/20 11/19/20 09:00 09:00 09:09 09:15 Temp 38 38 Pulse 102 97 Resp 28 B/P (MAP) Pulse Ox 81 90 O2 Delivery Mechanical Ventilator Mechanical Ventilator Mechanical Ventilator O2 Flow Rate 70.00 100.00 FiO2 100 11/19/20 11/19/20 11/19/20 11/19/20 09:30 09:45 10:00 10:15 Temp 38.1 37.9 37.9 37.8 Pulse 120 87 66 70 Resp 28 28 28 23 B/P (MAP) Pulse Ox 92 94 94 95 O2 Delivery Mechanical Ventilator O2 Flow Rate 100.00 11/19/20 11/19/20 11/19/20 11/19/20 10:30 10:41 10:45 10:54 Temp 37.5 37.5 37.5 Pulse 78 70 78 Resp 23 24 23 B/P (MAP) Pulse Ox 94 94 95 FiO2 85 11/19/20 11/19/20 11/19/20 11/19/20 11:00 11:11 11:15 11:30 Temp 37.4 37.5 37.6 Pulse 84 70 79 81 Resp 15 24 24 28 B/P (MAP) 96/55 Pulse Ox 95 95 95 O2 Delivery Mechanical Ventilator O2 Flow Rate 100.00 11/19/20 11/19/20 11/19/20 11/19/20 11:45 12:00 13:00 13:58 Temp 37.6 37.6 37.9 Pulse 78 98 128 110 Resp 28 28 24 B/P (MAP) Pulse Ox 96 95 93 90 O2 Delivery Mechanical Ventilator Mechanical Ventilator O2 Flow Rate 100.00 100.00 FiO2 100 11/19/20 11/19/20 11/19/20 14:00 14:58 15:00 Temp 38.2 38.3 Pulse 125 121 131 Resp 11 14 B/P (MAP) 71/60 Pulse Ox 78 85 O2 Delivery Mechanical Ventilator Mechanical Ventilator O2 Flow Rate 100.00 100.00 11/18/20 23:59 Intake Total 980 ml Output Total 650 ml Balance 330 ml Weight (Pounds): 281 Weight (Ounces): 0.0 Weight (Calculated Kilograms): 127.379471 Constitutional: other Results/Procedures: Labs Laboratory Tests 11/18/20 17:20: Glucometer 100 11/18/20 20:27: Glucometer 100 11/19/20 00:55: Glucometer 108 11/19/20 03:05: White Blood Count 5.0, Red Blood Count 3.08L, Hemoglobin 9.1L, Hematocrit 30L, Mean Corpuscular Volume 97, Mean Corpuscular Hemoglobin 30, Mean Corpuscular Hemoglobin Concent 30L, Red Cell Distribution Width 14.5, Platelet Count 265, Mean Platelet Volume 9.9, Immature Granulocyte % (Auto) 1, Neutrophils (%) (Auto) 60, Lymphocytes (%) (Auto) 25, Monocytes (%) (Auto) 9, Eosinophils (%) (Auto) 4, Basophils (%) (Auto) 0, Neutrophils # (Auto) 3.0, Lymphocytes # (Auto) 1.3, Monocytes # (Auto) 0.5, Eosinophils # (Auto) 0.2, Basophils # (Auto) 0.0, Immature Granulocyte # (Auto) 0.1, Blood Gas Puncture Site ART LINE, Blood Gas Patient Temperature 37.5, Arterial Blood pH 7.36L, Arterial Blood Partial Pressure CO2 49H, Arterial Blood Partial Pressure O2 64L, Arterial Blood HCO3 27, Arterial Blood Total CO2 28.6, Arterial Blood Oxygen Saturation 87L, Arterial Blood Base Excess 2.4, Hilario Test ART LINE, Blood Gas Ventilator Setting YES, Blood Gas Inspired Oxygen 70%, Sodium Level 139, Potassium Level 4.0, Chloride Level 104, Carbon Dioxide Level 25, Anion Gap 10, Blood Urea Nitrogen 6L, Creatinine 0.42L, Estimat Glomerular Filtration Rate > 60, BUN/Creatinine Ratio 14, Glucose Level 124H, Calcium Level 8.1L, Phosphorus Level 4.2, Magnesium Level 1.8 11/19/20 11:16: Glucometer 112H Microbiology 11/16/20 Blood Culture - Preliminary, Resulted No growth 11/16/20 Gram Stain - Final, Complete 11/16/20 Sputum Culture - Final, Complete Staphylococcus aureus Serratia marcescens 11/16/20 Urine Culture - Final, Complete YEAST 10/29/20 Catheter Tip Culture - Final, Complete No growth Laboratory Tests 11/18/20 05:10 11/19/20 03:05 A/P: Assessment: Acute respiratory failure due to COVID-19 pneumonia, ventilator dependent UTI - managment per medical services Atrial fibrillation with rapid ventricular response - controlled Diabetes mellitus, followed and managed by primary care physician Bronchial asthma/COPD Obesity Plan: Continue current regimen Monitor and correct labs WING FRANCO [facility] Nov 19, 2020 16:30
[2020-11-19 23:17] VITALS: BP 137/88
[2020-11-19] MEDS ORDERED: dilTIAZem DRIP PRE-MIX 125 ML IV ONE (23:58)
[2020-11-20] MEDS: inSUlin ASPART (NovoLOG) 1 UNIT/0.01 ML (CHARGE PER UNIT) SC SCH ×4 (00:19→18:25)
[2020-11-20] MEDS: CISATRACURIUM INJECTION 100 MG in NS (IVPB) 200 ML IV SCH ×6 (00:43→23:05)
[2020-11-20] MEDS: MIDAZOLAM DRIP PRE-MIX 100 ML IV SCH ×3 (02:32→17:17)
[2020-11-20] MEDS: fentaNYL DRIP PRE-MIX 250 ML IV SCH ×6 (02:33→23:04)
[2020-11-20] MEDS: RT-ALBUTEROL INHALER HFA (VENTOLIN HFA) 18 GM IH SCH ×6 (02:59→22:10)
[2020-11-20 03:00] VITALS: BP 137/88
[2020-11-20 03:17] LABS: ABG BASE EXCESS 4.2 MMOL/L (-2.5-2.5); ABG OXYGEN SATURATION 100 % (94-100); ABG PCO2 39 MMHG (35-45); ABG PH 7.47 (7.37-7.43); ABG PO2 147 MMHG (79-93); ABG TCO2 28.8 MMOL/L (21.0-31.0)
[2020-11-20 03:17] LABS: BASOPHILS % (AUTO) 0 % (0-10); EOSINOPHILS # (AUTO) 0.2 10^3/uL (0.0-0.3); EOSINOPHILS % (AUTO) 3 % (0-10); HEMATOCRIT 28 % (35-52); HEMOGLOBIN 8.5 g/dL (11.5-16.0); LYMPHOCYTES # (AUTO) 1.3 10^3/uL (1.0-4.0); LYMPHOCYTES % (AUTO) 20 % (12-44); MEAN CORPUSCULAR HEMOGLOBIN 30 pg (25-34); MEAN CORPUSCULAR HGB CONC 31 g/dL (32-36); MEAN CORPUSCULAR VOLUME 96 fL (80-99); MEAN PLATELET VOLUME 9.4 fL (9.0-12.2); MONOCYTES # (AUTO) 0.5 10^3/uL (0.0-1.0); MONOCYTES % (AUTO) 8 % (0-12); NEUTROPHILS # (AUTO) 4.3 10^3/uL (1.8-7.8); NEUTROPHILS % (AUTO) 68 % (42-75); PLATELET COUNT 317 10^3/uL (130-400); WHITE BLOOD COUNT 6.4 10^3/uL (4.3-11.0)
[2020-11-20 03:22] LABS: ALLENS TEST YES-POS
[2020-11-20 03:23] LABS: INSPIRED O2 100%; PATIENT TEMP 37.7; VENTILATOR YES
[2020-11-20 03:25] LABS: CHLORIDE 104 MMOL/L (98-107); POTASSIUM 3.2 MMOL/L (3.6-5.0); SODIUM 141 MMOL/L (135-145)
[2020-11-20 03:26] LABS: CALCIUM 7.7 MG/DL (8.5-10.1)
[2020-11-20 03:27] LABS: GLUCOSE 136 MG/DL (70-105)
[2020-11-20 03:29] LABS: CARBON DIOXIDE 26 MMOL/L (21-32)
[2020-11-20 03:31] LABS: CREATININE SERUM 0.39 MG/DL (0.60-1.30); GFR ESTIMATED > 60; PHOSPHORUS 3.9 MG/DL (2.3-4.7)
[2020-11-20 03:32] LABS: BUN/CREATININE RATIO 13
[2020-11-20 03:33] LABS: MAGNESIUM 1.5 MG/DL (1.6-2.4)
[2020-11-20] MEDS: ARTIFICIAL TEARS OINT (LACRI-LUBE) 3.5 GM TUBE OU SCH ×7 (04:08→21:59)
[2020-11-20] MEDS: KCL 20 MEQ TAB (K-DUR) PO SCH (05:25)
[2020-11-20] MEDS: POTASSIUM CL 10MEQ/50ML IVPB 50 ML IV SCH ×4 (05:40→07:43)
[2020-11-20] MEDS: MAGNESIUM 1 GM/100 ML IVPB 100 ML IV SCH ×3 (05:40→06:44)
--- NOTE | 2020-11-20 07:24 | Progress Note - Hospitalist ---
Subjective HPI/CC On Admission Date Seen by Provider: Nov 20, 2020 Time Seen by Provider: 11:00 CC: Respiratory failure due to COVID-19 PNA HPI: This is a 45 yoWF clinic patient of [facility] who presents to the ER with dyspnea and hypoxia and rapid heart rate. AF w/RVR dx and COVID swab was positive. Patient was placed in the ICU for Cardiology management with rate management drips and required hi-martina O2 then Vapotherm and then biPAP. She is tachypneic and pursed lip breathing and is struggling to breath and I talk to her about the ventilator and she is agreeable for the plan for intubation and supportive care. Subjective/Events-last exam Patient now on FiO2 100% Updated Dyllan michael for 15 minutes and we will arrange for terminal extubation Patient remains full code If patient experiences cardiac arrest she remains full code Extensive counseling of over the phone Objective Exam Vital Signs Vital Signs Date Time Temp Pulse Resp B/P (MAP) Pulse Ox O2 Delivery O2 Flow Rate FiO2 11/20/20 18:00 38.5 131 27 122/80 (87) 84 Mechanical Ventilator 100.00 11/20/20 15:18 100 Capillary Refill : Less Than 3 Seconds General Appearance: No Apparent Distress, WD/WN, Chronically ill Respiratory: Decreased Breath Sounds Results/Procedures Lab Laboratory Tests 11/20/20 03:10 Patient resulted labs reviewed. Imaging: Reviewed Imaging Films, Reviewed Imaging Report Assessment/Plan Assessment and Plan Assess & Plan/Chief Complaint Assessment: Respiratory failure requiring intubation due to failure on biPAP COVID-19 PNA AF w/RVR Hypoxia DM Obesity Plan: COVID-19 treatment Intubation Lovenox Monitor closely Cardiology consultation 10/24/20: Intubation Sedation management Monitor BP Prone schedule 10/25/20: Monitor closely Temperature management 11/06/20: Maintain vent Aggressive care continues 11/07/20: Monitor O2 and BP Vent wean or [place] 11/18/20: Difficult wean Hold proning OAC Vent wean or [place] 11/19/20: No evidence of recovery Will speak to family about terminal extubation and DNR tomorrow 11/20/20: Arrange for terminal extubation tomorrow Prognosis poor Critical Care Critically Ill Patient Diagnosis/Problems Diagnosis/Problems (1) COVID-19 Status: Acute (2) Atrial fibrillation with RVR Status: Acute (3) Respiratory distress Status: Acute Clinical Quality Measures DVT/VTE Risk/Contraindication: Risk Factor Score Per Nursin RFS Level Per Nursing on Admit: 4+=Very High LAMIN PALACIO DO Nov 20, 2020 07:24
[2020-11-20] MEDS: IPRATROPIUM INHALER (ATROVENT) 12.9 GM INH SCH ×4 (07:53→19:51)
[2020-11-20 07:54] VITALS: BP 109/76
--- NOTE | 2020-11-20 08:27 | Diagnostic Imaging Report ---
EXAMINATION: Chest radiograph, portable AP view. DATE: 11/20/2020 5:13 AM INDICATION: 45-year-old female, intubation. COMPARISON: November 19, 2020. FINDINGS: There are significant limitations of the exam relating to difficulties positioning the patient as well as patient body habitus and difficulties with exposure. The endotracheal tube appears to be at the level of the thoracic inlet. Advancement is recommended. The nasogastric tube is not well seen below the level of the distal esophagus. Lung volumes are low. There is no obvious pneumothorax. The previously noted predominantly linear opacities in the right perihilar region appear mildly improved. IMPRESSION: 1. Markedly limited study predominantly relating to difficulties positioning the patient. 2. Endotracheal tube is at the level of thoracic inlet. Recommend advancement. 2. Interval improved linear opacities in the right perihilar region which could relate to improved atelectasis. 3. The exam is otherwise largely nondiagnostic. Dictated by: Dictated on workstation # [id number]
[2020-11-20] MEDS: APIXABAN 5 MG (ELIQUIS) TABLET PO SCH ×2 (08:59→21:58)
[2020-11-20] MEDS: meTOprolol TARTRATE 50 MG (LOPRESSOR) TAB PO SCH ×2 (08:59→21:58)
[2020-11-20] MEDS: ASPIRIN 81 MG CHEW (CHILDREN'S ASA) PO SCH (08:59)
[2020-11-20] MEDS: MICONAZOLE NITRATE 2% CRM 30 GM TP SCH ×2 (09:00→22:17)
[2020-11-20] MEDS: FAMOTIDINE 20MG/2ML IV (PEPCID) IV SCH ×2 (09:00→21:58)
[2020-11-20] MEDS: MICONAZOLE 2% POWDER (DESENEX AF) 90 GM TOP SCH ×2 (09:00→21:58)
[2020-11-20] MEDS: LACTATED RINGERS 1,000 ML IV SCH (09:00)
[2020-11-20] MEDS: DOCUSATE SODIUM 10 MG/ML 10 ML UDC (COLACE) PO SCH ×2 (09:01→21:59)
[2020-11-20 10:51] VITALS: BP 125/80
--- NOTE | 2020-11-20 13:10 | Progress Note - Cardiology ---
[facility]iology SOAP [facility]: I&O/Vital Signs 11/20/20 11/20/20 11/20/20 11/20/20 02:00 02:32 03:00 03:00 Temp 37.8 37.7 Pulse 82 71 82 94 Resp 28 27 24 B/P (MAP) 127/70 (89) 135/95 131/94 (106) Pulse Ox 98 97 96 O2 Delivery Mechanical Ventilator Mechanical Ventilator O2 Flow Rate 100.00 100.00 FiO2 100 11/20/20 11/20/20 11/20/20 11/20/20 03:16 04:00 04:29 05:00 Temp 37.7 37.8 37.7 37.7 Pulse 115 114 Resp 13 28 B/P (MAP) 151/73 (99) 138/56 (83) Pulse Ox 96 95 O2 Delivery Mechanical Ventilator Mechanical Ventilator O2 Flow Rate 100.00 100.00 11/20/20 11/20/20 11/20/20 11/20/20 05:14 06:00 06:15 06:30 Temp 37.6 37.6 37.5 37.4 Pulse 101 90 118 Resp 28 28 28 B/P (MAP) 149/74 (99) 140/102 (105) 148/107 (116) Pulse Ox 96 97 O2 Delivery Mechanical Ventilator O2 Flow Rate 100.00 11/20/20 11/20/20 11/20/20 11/20/20 06:45 07:00 07:00 07:15 Temp 37.4 37.4 37.5 Pulse 104 112 105 100 Resp 29 B/P (MAP) 124/93 (99) 109/85 (94) 118/83 (95) O2 Delivery Mechanical Ventilator O2 Flow Rate 100.00 11/20/20 11/20/20 11/20/20 11/20/20 07:30 07:45 07:45 07:54 Temp 37.4 37.5 Pulse 100 101 128 109 Resp 17 28 B/P (MAP) 132/87 (97) 149/74 109/76 (88) Pulse Ox 99 96 FiO2 90 11/20/20 11/20/20 11/20/20 11/20/20 08:00 08:15 08:21 08:30 Temp 37.5 37.6 37.5 Pulse 123 98 89 Resp 28 27 B/P (MAP) 122/89 (98) 116/69 (87) 129/61 (88) Pulse Ox 93 94 94 O2 Delivery Mechanical Ventilator Mechanical Ventilator O2 Flow Rate 100.00 90.00 11/20/20 11/20/20 11/20/20 11/20/20 08:45 09:00 09:00 09:07 Temp 37.6 37.5 Pulse 97 93 123 Resp 28 B/P (MAP) 123/87 (97) 133/84 (92) 122/89 Pulse Ox 94 93 O2 Delivery Mechanical Ventilator Mechanical Ventilator O2 Flow Rate 90.00 FiO2 90 11/20/20 11/20/20 11/20/20 11/20/20 09:15 09:30 09:45 10:00 Temp 37.5 37.4 37.6 37.5 Pulse 81 80 81 70 Resp B/P (MAP) 128/67 (85) 116/82 (89) 130/57 (91) 131/78 (91) Pulse Ox 93 90 85 86 O2 Delivery Mechanical Ventilator O2 Flow Rate 90.00 11/20/20 10:51 Pulse 78 Resp 28 Pulse Ox 88 FiO2 90 11/20/20 00:00 Intake Total 950 ml Output Total 6100 ml Balance -5150 ml Weight (Pounds): 281 Weight (Ounces): 0.0 Weight (Calculated Kilograms): 127.626008 Constitutional: other Results/Procedures: Labs Laboratory Tests 11/19/20 17:14: Glucometer 138H 11/19/20 20:50: Glucometer 114H 11/19/20 23:43: Glucometer 120H 11/20/20 02:55: Blood Gas Puncture Site LEFT RADIAL, Blood Gas Patient Temperature 37.7, Arterial Blood pH 7.47H, Arterial Blood Partial Pressure CO2 39, Arterial Blood Partial Pressure O2 147H, Arterial Blood HCO3 28H, Arterial Blood Total CO2 28.8, Arterial Blood Oxygen Saturation 100, Arterial Blood Base Excess 4.2H, Hilario Test YES-POS, Blood Gas Ventilator Setting YES, Blood Gas Inspired Oxygen 100% 11/20/20 03:10: White Blood Count 6.4, Red Blood Count 2.88L, Hemoglobin 8.5L, Hematocrit 28L, Mean Corpuscular Volume 96, Mean Corpuscular Hemoglobin 30, Mean Corpuscular Hemoglobin Concent 31L, Red Cell Distribution Width 14.6H, Platelet Count 317, Mean Platelet Volume 9.4, Immature Granulocyte % (Auto) 1, Neutrophils (%) (Auto) 68, Lymphocytes (%) (Auto) 20, Monocytes (%) (Auto) 8, Eosinophils (%) (Auto) 3, Basophils (%) (Auto) 0, Neutrophils # (Auto) 4.3, Lymphocytes # (Auto) 1.3, Monocytes # (Auto) 0.5, Eosinophils # (Auto) 0.2, Basophils # (Auto) 0.0, Immature Granulocyte # (Auto) 0.1, Sodium Level 141, Potassium Level 3.2L, Chloride Level 104, Carbon Dioxide Level 26, Anion Gap 11, Blood Urea Nitrogen 5L, Creatinine 0.39L, Estimat Glomerular Filtration Rate > 60, BUN/Creatinine Ratio 13, Glucose Level 136H, Calcium Level 7.7L, Phosphorus Level 3.9, Magnesium Level 1.5L, Procalcitonin 0.13H Microbiology 11/16/20 Blood Culture - Preliminary, Resulted No growth 11/16/20 Gram Stain - Final, Complete 11/16/20 Sputum Culture - Final, Complete Staphylococcus aureus Serratia marcescens 11/16/20 Urine Culture - Final, Complete YEAST 10/29/20 Catheter Tip Culture - Final, Complete No growth Laboratory Tests 11/19/20 03:05 11/20/20 03:10 A/P: Assessment: Acute respiratory failure due to COVID-19 pneumonia, ventilator dependent UTI - managment per medical services Atrial fibrillation with rapid ventricular response - controlled Diabetes mellitus, followed and managed by primary care physician Bronchial asthma/COPD Obesity Plan: Replenish lytes Monitor labs WING FRANCO MD [facility] Nov 20, 2020 13:10
[2020-11-20 15:18] VITALS: BP 141/113
[2020-11-20] MEDS ORDERED: ROCURONIUM 10 MG/ML 5 ML SYRINGE IV ONE (15:30)
[2020-11-20] MEDS: APAP 325 MG/10.15 ML LIQ (TYLENOL) UDC PO PRN (16:18)
[2020-11-20 19:50] VITALS: BP 125/70
[2020-11-20 22:11] VITALS: BP 126/96
[2020-11-21] MEDS: inSUlin ASPART (NovoLOG) 1 UNIT/0.01 ML (CHARGE PER UNIT) SC SCH ×3 (02:27→11:18)
[2020-11-21] MEDS: fentaNYL DRIP PRE-MIX 250 ML IV SCH ×4 (02:28→11:58)
[2020-11-21] MEDS: CISATRACURIUM INJECTION 100 MG in NS (IVPB) 200 ML IV SCH ×4 (02:29→12:59)
[2020-11-21 02:51] VITALS: BP 133/95
[2020-11-21] MEDS: RT-ALBUTEROL INHALER HFA (VENTOLIN HFA) 18 GM IH SCH ×3 (02:51→10:34)
[2020-11-21 03:01] LABS: ABG BASE EXCESS 2.5 MMOL/L (-2.5-2.5); ABG OXYGEN SATURATION 99 % (94-100); ABG PCO2 41 MMHG (35-45); ABG PH 7.43 (7.37-7.43); ABG PO2 135 MMHG (79-93); ABG TCO2 27.5 MMOL/L (21.0-31.0)
[2020-11-21 03:07] LABS: ALLENS TEST ART LINE; INSPIRED O2 100%; VENTILATOR YES
[2020-11-21 03:16] LABS: BASOPHILS % (AUTO) 0 % (0-10); EOSINOPHILS # (AUTO) 0.2 10^3/uL (0.0-0.3); EOSINOPHILS % (AUTO) 2 % (0-10); HEMATOCRIT 28 % (35-52); HEMOGLOBIN 8.3 g/dL (11.5-16.0); LYMPHOCYTES # (AUTO) 1.3 10^3/uL (1.0-4.0); LYMPHOCYTES % (AUTO) 15 % (12-44); MEAN CORPUSCULAR HEMOGLOBIN 29 pg (25-34); MEAN CORPUSCULAR HGB CONC 30 g/dL (32-36); MEAN CORPUSCULAR VOLUME 97 fL (80-99); MEAN PLATELET VOLUME 9.8 fL (9.0-12.2); MONOCYTES # (AUTO) 0.6 10^3/uL (0.0-1.0); MONOCYTES % (AUTO) 7 % (0-12); NEUTROPHILS # (AUTO) 6.2 10^3/uL (1.8-7.8); NEUTROPHILS % (AUTO) 74 % (42-75); PLATELET COUNT 384 10^3/uL (130-400); WHITE BLOOD COUNT 8.4 10^3/uL (4.3-11.0)
[2020-11-21 03:32] LABS: CHLORIDE 104 MMOL/L (98-107); POTASSIUM 3.5 MMOL/L (3.6-5.0); SODIUM 138 MMOL/L (135-145)
[2020-11-21 03:34] LABS: CALCIUM 7.7 MG/DL (8.5-10.1); GLUCOSE 138 MG/DL (70-105)
[2020-11-21 03:36] LABS: CARBON DIOXIDE 24 MMOL/L (21-32)
[2020-11-21 03:38] LABS: CREATININE SERUM 0.38 MG/DL (0.60-1.30); GFR ESTIMATED > 60; PHOSPHORUS 3.6 MG/DL (2.3-4.7)
[2020-11-21 03:39] LABS: BUN/CREATININE RATIO 16
[2020-11-21 03:40] LABS: MAGNESIUM 1.8 MG/DL (1.6-2.4)
[2020-11-21] MEDS: ARTIFICIAL TEARS OINT (LACRI-LUBE) 3.5 GM TUBE OU SCH ×5 (04:40→11:18)
[2020-11-21] MEDS: MIDAZOLAM DRIP PRE-MIX 100 ML IV SCH ×2 (04:41→13:07)
[2020-11-21] MEDS: KCL 20 MEQ TAB (K-DUR) PO SCH (06:03)
[2020-11-21] MEDS: MAGNESIUM 1 GM/100 ML IVPB 100 ML IV SCH (06:03)
[2020-11-21] MEDS: POTASSIUM CL 10MEQ/50ML IVPB 50 ML IV SCH (06:03)
--- NOTE | 2020-11-21 07:11 | Diagnostic Imaging Report ---
INDICATION: COVID positive FINDINGS: The heart size is normal. There are perihilar infiltrates. There is no pleural effusion or pneumothorax. Mediastinum is unremarkable. ET and NG tubes are in satisfactory position. IMPRESSION: Bilateral perihilar infiltrates right greater than left. Dictated by: Dictated on workstation # [id number]
[2020-11-21 07:13] VITALS: BP 125/99
[2020-11-21] MEDS: IPRATROPIUM INHALER (ATROVENT) 12.9 GM INH SCH ×2 (07:13→10:35)
[2020-11-21] MEDS: FAMOTIDINE 20MG/2ML IV (PEPCID) IV SCH (08:28)
[2020-11-21] MEDS: ASPIRIN 81 MG CHEW (CHILDREN'S ASA) PO SCH (08:28)
[2020-11-21] MEDS: MICONAZOLE 2% POWDER (DESENEX AF) 90 GM TOP SCH (08:28)
[2020-11-21] MEDS: meTOprolol TARTRATE 50 MG (LOPRESSOR) TAB PO SCH (08:28)
[2020-11-21] MEDS: APIXABAN 5 MG (ELIQUIS) TABLET PO SCH (08:28)
[2020-11-21] MEDS: LACTATED RINGERS 1,000 ML IV SCH (08:29)
[2020-11-21] MEDS: DOCUSATE SODIUM 10 MG/ML 10 ML UDC (COLACE) PO SCH (08:29)
[2020-11-21] MEDS: MICONAZOLE NITRATE 2% CRM 30 GM TP SCH (08:29)
[2020-11-21 10:35] VITALS: BP 132/88
[2020-11-21 13:07] VITALS: BP 123/89
[2020-11-21] MEDS ORDERED: morphine INJ 10 MG/ML 1ML (SYR OR VIAL) ONE (13:11)
[2020-11-21] MEDS ORDERED: LORazepam INJ 2 MG/ML (ATIVAN) VIAL ONE (13:12)
--- NOTE | 2020-11-21 13:30 | NUR ---
and daughter at bedside to prepare for terminal extubation
--- NOTE | 2020-11-21 13:54 | NUR ---
Pt extubated, daughter et brought to bedside
--- NOTE | 2020-11-21 14:03 | NUR ---
Cardiac rhythm shows asystole. This RN et Jada Morales RN listened to pt x1 min each et no cardiac activity auscultated. Dr. Keenan notified. and daughter remain at bedside.
--- NOTE | 2020-11-21 14:20 | Discharge Summary ---
Discharge Summary Hospital Course Was the Problem List Reviewed?: Yes Problems/Dx: (1) COVID-19 Status: Acute (2) Atrial fibrillation with RVR Status: Acute (3) Respiratory distress Status: Acute Hospital Course Date of Admission: Oct 21, 2020 at 14:08 Admission Diagnosis : Family Physician/Provider: Gal/Stew,[facility] Date of Discharge: 11/21/20 Discharge Diagnosis: resp failure due to COVID-19, AF, obesity Hospital Course: Lengthy hospital course which included 31 days total and all vent dependent. Prone schedule maintained. AF managed with rate control. Labs remained stable but patient continued to worsen and require more and more FiO2 to maintain sats and Dyllan her was notified of impending cardiac arrest and patient ultimately was terminally extubated after family arrived and patient shortly after. Labs and Pending Lab Test: Laboratory Tests 11/20/20 18:22: Glucometer 111H 11/21/20 01:13: Glucometer 125H 11/21/20 02:40: White Blood Count 8.4, Red Blood Count 2.86L, Hemoglobin 8.3L, Hematocrit 28L, Mean Corpuscular Volume 97, Mean Corpuscular Hemoglobin 29, Mean Corpuscular Hemoglobin Concent 30L, Red Cell Distribution Width 14.7H, Platelet Count 384, Mean Platelet Volume 9.8, Immature Granulocyte % (Auto) 1, Neutrophils (%) (Auto) 74, Lymphocytes (%) (Auto) 15, Monocytes (%) (Auto) 7, Eosinophils (%) (Auto) 2, Basophils (%) (Auto) 0, Neutrophils # (Auto) 6.2, Lymphocytes # (Auto) 1.3, Monocytes # (Auto) 0.6, Eosinophils # (Auto) 0.2, Basophils # (Auto) 0.0, Immature Granulocyte # (Auto) 0.1, Sodium Level 138, Potassium Level 3.5L, Chloride Level 104, Carbon Dioxide Level 24, Anion Gap 10, Blood Urea Nitrogen 6L, Creatinine 0.38L, Estimat Glomerular Filtration Rate > 60, BUN/Creatinine Ratio 16, Glucose Level 138H, Calcium Level 7.7L, Phosphorus Level 3.6, Magnesium Level 1.8 11/21/20 02:45: Blood Gas Puncture Site RIGHT RADIAL, Blood Gas Patient Temperature 38.0, Arterial Blood pH 7.43, Arterial Blood Partial Pressure CO2 41, Arterial Blood Partial Pressure O2 135H, Arterial Blood HCO3 26, Arterial Blood Total CO2 27.5, Arterial Blood Oxygen Saturation 99, Arterial Blood Base Excess 2.5, Hilario Test ART LINE, Blood Gas Ventilator Setting YES, Blood Gas Inspired Oxygen 100% 11/21/20 11:11: Glucometer 105 Microbiology 11/16/20 Blood Culture - Preliminary, Resulted No growth 11/16/20 Gram Stain - Final, Complete 11/16/20 Sputum Culture - Final, Complete Staphylococcus aureus Serratia marcescens 11/16/20 Urine Culture - Final, Complete YEAST 10/29/20 Catheter Tip Culture - Final, Complete No growth Home Meds Active Reported Tylenol Extra Strength (Acetaminophen) 500 Mg Tablet 1,000 Mg PO Q8H PRN Hydrocodone-Ibuprofen 7.5-200 (Hydrocodone/Ibuprofen) 1 Each Tablet 1 Tab PO Q6H PRN MDD 6 TABS Oxybutynin Chloride ER (Oxybutynin Chloride) 10 Mg Tab.er.24 10 Mg PO BID Symbicort 160-4.5 Mcg Inhaler (Budesonide/Formoterol Fumarate) 10.2 Gm Hfa.aer.ad 2 Puff INH BID Azithromycin 250 Mg Tablet 250 Mg PO DAILY FILLED 10-19-2020 #6/5 DAY SUPPLY Prednisone 20 Mg Tab 40 Mg PO DAILY TAKES 2 (20MG) TABS FILLED 10-19-2020 #8/4 DAY SUPPLY Proair Hfa (Albuterol Sulfate) 1 Puff Puff 2 Puff IH Q4H PRN Metformin HCl 1,000 Mg Tablet 1,000 Mg PO BID Ozempic (Semaglutide) 0.25 Mg/0.2 Ml Pen.injctr 0.25 Mg SQ WED Iron (Ferrous Sulfate, Dried) Unknown Strength Tablet.er 65 Mg PO BID Quetiapine Fumarate 300 Mg Tablet 300 Mg PO HS Gabapentin 600 Mg Tablet 600 Mg PO BID Effexor Xr (Venlafaxine HCl) 150 Mg Cap.er.24h 150 Mg PO DAILY Topiramate 100 Mg Tablet 200 Mg PO BID TAKES 2 (100MG) TABS Potassium Chloride 20 Meq Tab.er.prt 20 Meq PO BID Assessment/Pt Instructions Discharge Planning: <30 minutes discharge planning Discharge Physical Examination Vital Signs Vital Signs Date Time Temp Pulse Resp B/P (MAP) Pulse Ox O2 Delivery O2 Flow Rate FiO2 11/21/20 13:07 86 15 123/89 11/21/20 12:00 38 94 Mechanical Ventilator 100.00 11/21/20 10:35 90 General Appearance: Other () Allergies: Coded Allergies: Penicillins (Unverified Allergy, Unknown, Anaphylaxis, 05/26/20) Sulfa (Sulfonamide Antibiotics) (Unverified Allergy, Unknown, 02/04/16) amoxicillin (Verified Allergy, Unknown, Hives, 05/26/20) codeine (Unverified Allergy, Unknown, Pt has rec Hydrocodone/Ibu in the past, 06/02/20) meloxicam (Unverified Allergy, Unknown, 02/04/16) morphine (Unverified Allergy, Unknown, 02/04/16) Uncoded Allergies: PAPER TAPE (Allergy, Unknown, 02/04/16) PINK DYE (Allergy, Unknown, 02/04/16) PURPLE DYE (Allergy, Unknown, 02/04/16) Discharge Summary Date of Admission Oct 21, 2020 at 14:08 Date of Discharge Admission Diagnosis Assessment: Respiratory failure requiring intubation due to failure on biPAP COVID-19 PNA AF w/RVR Hypoxia DM Obesity Plan: COVID-19 treatment Intubation Lovenox Monitor closely Cardiology consultation Discharge Diagnosis Assessment: Respiratory failure requiring intubation due to failure on biPAP COVID-19 PNA AF w/RVR Hypoxia DM Obesity Plan: COVID-19 treatment Intubation Lovenox Monitor closely Cardiology consultation 10/24/20: Intubation Sedation management Monitor BP Prone schedule 10/25/20: Monitor closely Temperature management 11/06/20: Maintain vent Aggressive care continues 11/07/20: Monitor O2 and BP Vent wean or Flora 11/18/20: Difficult wean Hold proning OAC Vent wean or Flora 11/19/20: No evidence of recovery Will speak to family about terminal extubation and DNR tomorrow 11/20/20: Arrange for terminal extubation tomorrow Prognosis poor (1) COVID-19 Status: Acute (2) Atrial fibrillation with RVR Status: Acute (3) Respiratory distress Status: Acute Clinical Quality Measures DVT/VTE Risk/Contraindication: Risk Factor Score Per Nursin RFS Level Per Nursing on Admit: 4+=Very High LAMIN PALACIO DO Nov 21, 2020 14:20
--- NOTE | 2020-11-21 14:23 | Progress Note - Cardiology ---
Cardiology SOAP [facility] Objective: I&O/Vital Signs 11/21/20 11/21/20 11/21/20 11/21/20 02:51 03:00 04:00 04:41 Temp 37.9 37.7 Pulse 90 91 105 75 Resp B/P (MAP) 139/93 (108) 151/81 (104) 143/93 Pulse Ox 98 97 98 O2 Delivery Mechanical Ventilator Mechanical Ventilator O2 Flow Rate 100.00 100.00 FiO2 100 11/21/20 11/21/20 11/21/20 11/21/20 05:00 06:00 06:15 06:30 Temp 37.6 37.7 37.8 37.7 Pulse 98 92 100 90 Resp B/P (MAP) 138/72 (94) 144/93 (110) 144/93 (104) 133/72 (85) Pulse Ox 99 99 99 99 O2 Delivery Mechanical Ventilator Mechanical Ventilator O2 Flow Rate 100.00 100.00 11/21/20 11/21/20 11/21/20 11/21/20 06:45 07:00 07:00 07:13 Temp 37.7 37.6 Pulse 87 83 88 87 Resp B/P (MAP) 129/64 (87) 125/99 (106) Pulse Ox 99 98 98 O2 Delivery Mechanical Ventilator O2 Flow Rate 100.00 FiO2 100 11/21/20 11/21/20 11/21/20 11/21/20 07:15 07:30 07:45 08:00 Temp 37.6 37.6 37.7 37.6 Pulse 87 87 79 Resp B/P (MAP) 114/99 (103) 134/83 (92) 146/78 (97) 140/76 (109) Pulse Ox 99 98 98 O2 Delivery Mechanical Ventilator O2 Flow Rate 100.00 11/21/20 11/21/20 11/21/20 11/21/20 08:15 08:30 08:38 08:45 Temp 37.7 37.6 37.6 Pulse 90 76 104 Resp B/P (MAP) 144/81 (98) 145/65 (107) 149/85 (93) Pulse Ox 98 98 97 O2 Delivery Mechanical Ventilator FiO2 100 11/21/20 11/21/20 11/21/20 11/21/20 09:00 09:15 09:17 09:30 Temp 37.7 37.8 37.7 Pulse 87 76 87 73 Resp B/P (MAP) 148/58 (117) 144/96 (110) 148/58 134/80 (107) Pulse Ox 98 98 98 O2 Delivery Mechanical Ventilator O2 Flow Rate 100.00 11/21/20 11/21/20 11/21/20 11/21/20 09:45 10:00 10:15 10:30 Temp 37.8 37.8 37.8 37.9 Pulse 77 68 78 84 Resp B/P (MAP) 124/99 (106) 126/91 (104) 130/83 (109) 132/88 (99) Pulse Ox 98 98 98 97 O2 Delivery Mechanical Ventilator O2 Flow Rate 100.00 11/21/20 11/21/20 11/21/20 11/21/20 10:35 10:45 11:00 11:15 Temp 38 38 38 Pulse 80 70 83 78 Resp B/P (MAP) 132/65 (93) 129/76 (91) 150/102 (130) Pulse Ox 97 97 97 O2 Delivery Mechanical Ventilator O2 Flow Rate 100.00 FiO2 90 11/21/20 11/21/20 11/21/20 11/21/20 11:30 11:45 12:00 12:55 Temp 38 38 38 Pulse 91 79 85 86 Resp 15 B/P (MAP) 134/71 (92) 124/77 (88) 123/89 (100) Pulse Ox 93 96 94 O2 Delivery Mechanical Ventilator O2 Flow Rate 100.00 11/21/20 13:07 Pulse 86 Resp 15 B/P (MAP) 123/89 11/21/20 00:00 Intake Total 3130 ml Output Total 600 ml Balance 2530 ml Weight (Pounds): 281 Weight (Ounces): 0.0 Weight (Calculated Kilograms): 127.809270 Constitutional: other Results/Procedures: Labs Laboratory Tests 11/20/20 18:22: Glucometer 111H 11/21/20 01:13: Glucometer 125H 11/21/20 02:40: White Blood Count 8.4, Red Blood Count 2.86L, Hemoglobin 8.3L, Hematocrit 28L, Mean Corpuscular Volume 97, Mean Corpuscular Hemoglobin 29, Mean Corpuscular Hemoglobin Concent 30L, Red Cell Distribution Width 14.7H, Platelet Count 384, Mean Platelet Volume 9.8, Immature Granulocyte % (Auto) 1, Neutrophils (%) (Auto) 74, Lymphocytes (%) (Auto) 15, Monocytes (%) (Auto) 7, Eosinophils (%) (Auto) 2, Basophils (%) (Auto) 0, Neutrophils # (Auto) 6.2, Lymphocytes # (Auto) 1.3, Monocytes # (Auto) 0.6, Eosinophils # (Auto) 0.2, Basophils # (Auto) 0.0, Immature Granulocyte # (Auto) 0.1, Sodium Level 138, Potassium Level 3.5L, Chloride Level 104, Carbon Dioxide Level 24, Anion Gap 10, Blood Urea Nitrogen 6L, Creatinine 0.38L, Estimat Glomerular Filtration Rate > 60, BUN/Creatinine Ratio 16, Glucose Level 138H, Calcium Level 7.7L, Phosphorus Level 3.6, Magnesium Level 1.8 11/21/20 02:45: Blood Gas Puncture Site RIGHT RADIAL, Blood Gas Patient Temperature 38.0, Arterial Blood pH 7.43, Arterial Blood Partial Pressure CO2 41, Arterial Blood Partial Pressure O2 135H, Arterial Blood HCO3 26, Arterial Blood Total CO2 27.5, Arterial Blood Oxygen Saturation 99, Arterial Blood Base Excess 2.5, Hilario Test ART LINE, Blood Gas Ventilator Setting YES, Blood Gas Inspired Oxygen 100% 11/21/20 11:11: Glucometer 105 Microbiology 11/16/20 Blood Culture - Preliminary, Resulted No growth 11/16/20 Gram Stain - Final, Complete 11/16/20 Sputum Culture - Final, Complete Staphylococcus aureus Serratia marcescens 11/16/20 Urine Culture - Final, Complete YEAST 10/29/20 Catheter Tip Culture - Final, Complete No growth Laboratory Tests 11/20/20 03:10 11/21/20 02:40 A/P: Assessment: Acute respiratory failure due to COVID-19 pneumonia, ventilator dependent UTI - managment per medical services Atrial fibrillation with rapid ventricular response - controlled Diabetes mellitus, followed and managed by primary care physician Bronchial asthma/COPD Obesity Plan: Replenish lytes Monitor labs WING FRANCO MD [facility] Nov 21, 2020 14:23
--- NOTE | 2020-11-21 15:00 | NUR ---
Body released to [facility] per family request
== END 2020-11-21 14:03 | disposition expired | DRG 207 ==
LOC: EDUNIT# 11:51 → ER 11:52 → ICU 14:08
PROVIDERS: ADMIT Internal Medicine; ATTEND Internal Medicine
PROC: XW043E5 Introduction of Remdesivir Anti-infective into Central Vein, Percutaneous Approach, New Technology Group 5 (ICD-10-PCS; 2020-10-21)
PROC: 5A09457 Assistance with Respiratory Ventilation, 24-96 Consecutive Hours, Continuous Positive Airway Pressure (ICD-10-PCS; 2020-10-21)
PROC: 5A1955Z Respiratory Ventilation, Greater than 96 Consecutive Hours (ICD-10-PCS; principal; 2020-10-22)
PROC: 0BH17EZ Insertion of Endotracheal Airway into Trachea, Via Natural or Artificial Opening (ICD-10-PCS; 2020-10-22)
DX: U07.1 COVID-19 (principal); J12.89 Other viral pneumonia; J80 Acute respiratory distress syndrome; J15.211 Pneumonia due to Methicillin susceptible Staphylococcus aureus; J15.6 Pneumonia due to other Gram-negative bacteria; Z68.43 Body mass index [BMI] 50.0-59.9, adult; E87.0 Hyperosmolality and hypernatremia; R78.81 Bacteremia; N39.0 Urinary tract infection, site not specified; E11.65 Type 2 diabetes mellitus with hyperglycemia; E66.01 Morbid (severe) obesity due to excess calories; G47.30 Sleep apnea, unspecified; G43.909 Migraine, unspecified, not intractable, without status migrainosus; R32 Unspecified urinary incontinence; M17.12 Unilateral primary osteoarthritis, left knee; M54.9 Dorsalgia, unspecified; F31.9 Bipolar disorder, unspecified; Z79.4 Long term (current) use of insulin; Z87.891 Personal history of nicotine dependence; I48.0 Paroxysmal atrial fibrillation; I95.9 Hypotension, unspecified; D64.9 Anemia, unspecified; J44.9 Chronic obstructive pulmonary disease, unspecified; Z88.6 Allergy status to analgesic agent; Z88.1 Allergy status to other antibiotic agents; Z88.5 Allergy status to narcotic agent; Z88.0 Allergy status to penicillin; Z88.2 Allergy status to sulfonamides
CPT/HCPCS: 36415; 36569; 36600; 71045; 71275; 76937; 80048; 80053; 80061; 80202; 81000; 82805; 82962; 83605; 83735; 83874; 83880; 84100; 84145; 84478; 84484; 85007; 85025; 85027; 85260; 85379; 85610; 85730; 86900; 86901; 87040; 87070; 87077; 87081; 87088; 87185; 87186; 87205; 87635; 87804; 93005; 93041; 94002; 94003; 94640; 94660; 94799; 96372; 96374; 96375; 99291